=== PATIENT | female | born 1935 | race Caucasian/White ===

== ENCOUNTER 2017-04-15 11:47 | Inpatient (IN) | payer MEDICARE, SELFPAY ==
[2017-04-15] VITALS (10 sets, daily range): BP systolic 109–161; BP diastolic 61–103; PULSE 68–146; RESP 15–18; TEMP 36.2–36.9; O2SAT 95–99; BMI 17.5; BMI 20.3
--- NOTE | 2017-04-15 12:19 | RAD_ITS ---
STUDY: X-RAY CHEST REASON FOR EXAM: Female, 81 years old. Palpitations. Bilateral lower extremity edema. TECHNIQUE: Single AP portable view of the chest. COMPARISON: Comparison is made with prior study dated February 29, 2016. FINDINGS: EKG electrodes are seen. There is evidence of atherosclerotic calcification of the carotid bifurcations bilaterally. There are small bilateral pleural effusions with underlying infiltration and/or atelectasis. Normal size heart. Normal mediastinum and jarrell. Normal visualized pulmonary arteries. There is atherosclerotic calcification of the aortic arch with tortuosity. Normal visualized thoracic spine. Normal visualized ribs, clavicles, and shoulders. There is no demonstrated abnormality of the visualized soft tissue structures of the upper abdomen. RAD/Chest 1 View (Portable) IMPRESSION: Small bilateral pleural effusions with underlying infiltration and/or atelectasis. Electronically Signed: Isra Claros MD at 12:49 EST Tel [phone], Service support ,
--- NOTE | 2017-04-15 12:19 | EKG12_ITS ---
Test Reason : Blood Pressure : / mmHG Vent. Rate : 148 BPM Atrial Rate : 296 BPM P-R Int : 000 ms QRS Dur : 082 ms QT Int : 306 ms P-R-T Axes : 248 055 247 degrees QTc Int : 480 ms Atrial flutter Nonspecific ST and T wave abnormality Abnormal ECG Confirmed by UMA DAILY ([id number]), publication editor PAMELA HAYES ([id number] on 04/20/2017 10:13:32 AM Referred By: Muriel Burch Confirmed By:UMA DAILY
[2017-04-15] MEDS: 0.9% Normal Saline 1,000 ML 150 ML IV (12:30)
[2017-04-15] MEDS: dilTIAZem 25 MG/5 ML Vial 20 MG IV BOLUS ×2 (12:31→14:35)
[2017-04-15] MEDS: Aspirin 81 MG TAB.CHEW 324 MG PO (12:31)
[2017-04-15 12:34] LABS: Absolute Lymphocyte Count 1.72 X10^3/ul (0.83-4.51); Absolute Neutrophil Count 2.9 X10^3/uL (2.0-7.7); Basophil# 0.02 X10^3/uL; Basophil% 0.4 % (0-1); Eosinophil# 0.13 X10^3/uL; Eosinophils% 2.4 % (0-5); Hematocrit 35.6 % (37-47); Hemoglobin 11.8 g/dl (12.0-15.0); Lymphocyte # 1.72 X10^3/ul (4.0); Lymphocyte % 31.6 % (19-41); Mean Corp Hgb Conc 33.1 g/gl (32-36); Mean Corpuscular Hgb 31.8 pg (27.0-32.0); Mean Platelet Vol. 10.6 fl (6.2-12.0); Monocyte# 0.67 X10^3/uL; Monocyte% 12.3 % (0-10); Neutrophil % 53.1 % (47-70); Platelet Count 265 K/mm3 (150-450); RBC Distribution Width CV 14.9 % (11.6-14.6); RBC Distribution Width SD 49.5 fl (35.1-43.9); Red Blood Count 3.71 M/mm3 (4.2-5.4); White Blood Count 5.5 K/mm3 (4.4-11.0)
[2017-04-15 12:36] LABS: POSITIVE COUNT NO; POSITIVE DIFFERENTIAL NO; POSITIVE MORPHOLOGY NO
[2017-04-15 12:58] LABS: Anion Gap 8 (5-15); BUN 20 mg/dL (7-18); BUN/Creat Ratio 22.5 RATIO (10-20); Chloride 103 mmol/L (98-107); Creatinine, Serum 0.89 mg/dL (0.55-1.02); EST Glomerular Filtration Rate 65 mL/min (>60); Est Glom Filt Rate - Afr Amer 79 mL/min (>60); Estimated Creatinine Clearance 36.82 ml/min; Glucose 195 mg/dL (70-110); Potassium 4.8 mmol/L (3.5-5.1); Sodium Level 139 mmol/L (136-145); Thyroid Stim Hormone (TSH) 2.94 uIU/mL (0.358-3.74)
--- NOTE | 2017-04-15 13:18 | ED.VISSUMM ---
- ER Visit Summary Date of Service: 04/15/17 Chief Complaint: Ankle swelling History of Present Illness: The patient is a 81 F with no primary care physician. She reports that she has bilateral ankle swelling that began approximately 4 days ago. She denies any chest shayan, palpitations, or shortness of breath. She has never had anything like this before. Review of systems: General: No fever, chills, cold sweats. Cardiovascular: No chest pain, palpitations. Respiratory: No cough, shortness of breath, dyspnea on exertion. Gastrointestinal: No abdominal pain, nausea, vomiting, diarrhea, melena, or hematochezia. Genitourinary: No dysuria, frequency, hematuria. Skin: No rash. Neuro: No headache, numbness, weakness. Physical Examination: Vitals: Stable. Afebrile. General: Well-nourished and well-developed. Head: Normocephalic atraumatic. Neck: Supple, no lymphadenopathy. No JVD. Nontender. Cardiovascular: Tachycardic irregularly irregular rhythm with no murmur. Respiratory: No respiratory distress. Clear to auscultation bilaterally. Abdominal: Soft, nontender, nondistended, normal bowel sounds. No guarding, rebound, or peritoneal signs. Back: Nontender. Extremities: Nontender, 2+ pitting edema of lower extremity is bilaterally. Skin: Normal color, no rash. Neurologic: Alert and oriented ?3. Cranial nerves II through XII are intact. Normal strength and sensation. Psych: Normal affect. Test Results: EKG is atrial flutter at [address] depression. Troponin is negative. Chem-7 is more for BUN of 20 and glucose 195. CBC is more for an H&H 11.8 and 35.6, monocytes of 12. TSH is normal. Chest x-ray shows small bilateral pleural effusions with atelectasis. Emergency Department Course and Treatment: Patient was treated with aspirin and Cardizem IV. Her heart rate has decreased into the 90s to low 100s. However, she is still in atrial fibrillation. She will be given a second dose of Cardizem IV. Treatment Plan: Patient will be discussed with the hospitalist and admitted to the hospital for further evaluation and treatment. Disposition: Admitted in improved condition. Impression: 1. Atrial fibrillation with RVR. 2. Bilateral pleural effusion. 3. Insulin-dependent diabetes mellitus. 4. Critical care time 30 minutes. This note was generated with SciGit dictation software. It may contain incorrect words, spelling, and punctuation that were not noted in review of the chart prior to signing ED Disposition - Plan for ED Patient: Chief Complaint: Edema Referrals: Care Physician,No Primary [Primary Care Provider] -
--- NOTE | 2017-04-15 15:05 | PCM.HP.STD ---
Problem List (1) Valvular heart disease Status: Acute (2) A. fib with RVR, new onset Status: Acute History of Present Illness Date of Admission: 04/15/17 Chief Complaint: Bilateral lower extremity edema, sent from urgent care The patient is a 81 year old F with history of diabetes mellitus type 2 on insulin pump was sent to ER from urgent care where she went for bilateral lower extremity edema for last 4 days. Patient denies any chest pain, shortness of breath, palpitation or diaphoresis, near syncope or syncope. Patient was found to have A. fib in urgent care and was sent to ER. In the ER, her heart it was found in 1 45/min. Blood pressure 161/103, pulse ox 99% on room air. She was given Cardizem 20 mg IV bolus ?2. Patient heart rate is controlled, currently running in 100s. Patient's chest x-ray shows a small bilateral pleural effusions with underlying infiltration or atelectasis. Patient had previous echo in February 2016 which showed EF 60% with no regional wall motion abnormalities. LV systolic function normal. Normal right and left atria. Moderate TR, PA SP 44 mmHg. Moderate eccentric MR. She had normal Lexiscan nuclear stress test with EF 74%. Past Medical History Allergies No Known Allergies Allergy (Verified 03/17/17 14:15) Home Medications: Ambulatory Orders Medication Instructions Recorded enalapril maleate 20 mg tablet 20 mg PO DAILY 03/17/17 insulin lispro 100 unit/mL See Label Instructions SC QDAY 03/17/17 subcutaneous solution Smoking Status: Former smoker - *Family History Maternal Family History: Family History (Last Reviewed 03/17/17 @ 14:24 by Camille Escalante) Father Kidney disease Cancer Sibling Family History: Family History (Last Reviewed 03/17/17 @ 14:24 by Camille Escalante) Father Kidney disease Cancer History Items: Heart Disease - Had some cardiac surgery. Review of Systems Constitutional: Denies: Chills, Fever, Weight Change HEENT: Denies: Head Aches, Sinus Congestion, Sinus Drainage Cardiovascular: Reports: Edema. Denies: Chest Pain, Chest Tightness, Palpitations Respiratory: Denies: Cough, Shortness of breath at rest, Sputum production Gastrointestinal: Denies: Abdominal Pain, Nausea, Vomiting Genitourinary: Denies: Dysuria Musculoskeletal: Denies: Joint Pain, Joint Tenderness Skin: Denies: Rash, Wounds Neurological: Denies: Numbness, Tingling, Focal weakness Psychiatric: Denies: Anxiety, Depression, Homicidal Ideations, Suicidal Ideations Hematologic/ Lymphatic: Denies: Easy Bruising, Easy Bleeding VTE Information - Inpt Only VTE Present on Admission: No VTE Mechan Device Prophylaxis: SCD's VTE Pharm Prophylaxis ordered?: Yes Patient Problems: Active and Suspected Problems (Last Reviewed 03/17/17 @ 14:24 by Camille Escalante) Valvular heart disease (Acute) A. fib with RVR, new onset (Acute) - Physical Exam General: Alert, Oriented x3, Cooperative HEENT: Atraumatic, PERRLA, EOMI, Normocephalic Neck: Supple, No JVD, Negative Carotid Bruits Lungs: No rhonchi, No wheeze, No rales, Diminished - Air entry diminished in bilateral lung bases., - - Bilateral lower pleural effusion. Cardiovascular: Regular rate, No murmurs, Irregular Rate, Tachycardic Abdomen: Bowel Sounds Present, Soft, Non Tender Extremities: No edema, Capillary Refill Less than 3 Seconds Skin: No rashes, No breakdown Musculoskeletal: No Tenderness to Palpation of Joints or Extremities, Arthritic Changes Neurological: Cranial nerves II-XII grossly intact, Neuro grossly intact Psych/Mental Status: Normal Affect, Appropriate Vital Signs Temp Pulse Resp BP Pulse Ox 97.2 F L 71 17 117/75 98 04/15/17 11:49 04/15/17 14:40 04/15/17 14:40 04/15/17 14:40 04/15/17 14:40 Oxygen Flow Rate 2 Oxygen Delivery Method Nasal Cannula Assessment/Plan Active and Suspected Problems (Last Reviewed 03/17/17 @ 14:24 by Camille Escalante) Valvular heart disease (Acute) A. fib with RVR, new onset (Acute) The patient is a 81 year old F with history of diabetes mellitus type 2 on insulin pump was sent to ER from urgent care where she went for bilateral lower extremity edema for last 4 days. Patient denies any chest pain, shortness of breath, palpitation or diaphoresis, near syncope or syncope. Patient was found to have A. fib in urgent care and was sent to ER. In the ER, her heart it was found in 1 45/min. Blood pressure 161/103, pulse ox 99% on room air. She was given Cardizem 20 mg IV bolus ?2. Patient heart rate is controlled, currently running in 100s. Patient's chest x-ray shows a small bilateral pleural effusions with underlying infiltration or atelectasis. Patient had previous echo in February 2016 which showed EF 60% with no regional wall motion abnormalities. LV systolic function normal. Normal right and left atria. Moderate TR, PA SP 44 mmHg. Moderate eccentric MR. She had normal Lexiscan nuclear stress test with EF 74%. She was last admitted in February 2016 for syncope. 1. New onset A. fib with RVR: Patient is being admitted on the cardiac floor, PCU. Started on IV Cardizem drip. Started on Lovenox 1 mg/kg body weight. Will consult cardiology to evaluate for further cardioversion. 2D echo is ordered. Cycle cardiac enzymes. 2. New onset of bilateral lower extremity edema and bilateral pleural effusion, raises suspicion of heart failure: Lasix 40 mg IV twice daily and titrate as per intake/output. Monitor electrolytes, input/output, and kidney function. Repeat chest x-ray PA and lateral for pleural effusion. 3. Diabetes mellitus type 1 on insulin pump: Patient has been on insulin pump since 1990 and manage her insulin pump well. Blood sugars are between 295 -307. A1c tomorrow a.m. 4. Valvular heart disease: As per the 2D echo in 2016 she has moderate eccentric MR and moderate tricuspid regurgitation. RVSP 44 mm suggestive of mild pulmonary hypertension. She is a former smoker, quit long time ago DVT prophylaxis: On Lovenox 1 mg/kg body weight at as stated above. Advanced life directive/CODE STATUS: And has a living will at home. As they can understand that she has DNR CC arrest and she understands the meaning of DNR CC with no chest compressions and intubation. I requested her to get the living will so that we can scan it in our medical record. About 15 minutes spent on addressing the advanced life. Laboratory Results 04/15/17 12:20: WBC 5.5, RBC 3.71 L, Hgb 11.8 L, Hct 35.6 L, MCV 96.0, MCH 31.8, MCHC 33.1, RDW 14.9 H, RDW Differential 49.5 H, Plt Count 265, MPV 10.6, Immature Gran % (Auto) 0.200, Neut % (Auto) 53.1, Lymph % (Auto) 31.6, Bell % (Auto) 12.3 H, Eos % (Auto) 2.4, Baso % (Auto) 0.4, Absolute Neuts (auto) 2.9, Absolute Lymphs (auto) 1.72, Total Counted Not Reportable 04/15/17 12:20: Sodium 139, Potassium 4.8, Chloride 103, Carbon Dioxide 28.0, Anion Gap 8, BUN 20 H, Creatinine 0.89, Estim Creat Clear Calc 36.82, Est GFR (MDRD) Af Amer 79, Est GFR (MDRD) Non-Af 65, BUN/Creatinine Ratio 22.5 H, Glucose 195 H, Calcium 9.0, Troponin I < 0.02, TSH 2.94 04/15/17 12:20: B-Natriuretic Peptide Pending 04/15/17 12:20: Total Bilirubin Pending, Direct Bilirubin Pending, AST Pending, ALT Pending, Alkaline Phosphatase Pending, Total Protein Pending, Albumin Pending Clinical Impression(s) from Imaging Studies Chest X-Ray 04/15/17 12:19 IMPRESSION: Small bilateral pleural effusions with underlying infiltration and/or atelectasis. Electronically Signed: Isra Claros MD at 12:49 EST Tel [phone], Service support , This note was generated with Far[employer] dictation software. Every effort was made to ensure accuracy, however computerized cloth pattern maker mistakes may persist. Code Visit Inpatient E&M: 36173 Init Hosp L3 Procedures: 06803 Advncd Care Plan 30 Min
--- NOTE | 2017-04-15 15:06 | ECHOD_ITS ---
Reason For Study: A. fib Procedure This was a 2D Doppler, Color Flow transthoracic echocardiogram. Exam performed portable in patient room. Left Ventricle Normal size and thickness. The estimated ejection fraction is 50-55 %. There is mild global hypokinesis of the left ventricle. Right Ventricle Normal size and thickness. Normal systolic function. Atria Normal left atrium. Normal right atrium. Normal atrial septum. Mitral Valve Mild diffuse mitral valve thickening. Moderate mitral annular calcification extending into the posterior leaflet. Mild-Moderate (1-2+) posteriorly directed mitral valve insufficiency. Tricuspid Valve Normal tricuspid valve. Mild (1+) tricuspid valve insufficiency. Right ventricular systolic pressure estimated to be 37 mmHg. Mild pulmonary hypertension. Aortic Valve Trisinus/trileaflet aortic valve. Moderate focal aortic valve thickening. Mild focal aortic valve calcification. Mild restriction of the aortic valve. 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 Pulmonic Valve Normal pulmonic valve. Great Vessels Normal aortic root. Mild atherosclerosis of the aortic arch. The inferior vena cava is dilated. Inferior vena cava collapse with sniff. Pericardium/Pleural Trivial pericardial effusion. There are no echocardiographic indications of cardiac tamponade. Small left pleural effusion. MMode/2D Measurements & Calculations LVIDd: 2.8 cm IVSd: 1.2 cm Ao root diam: 2.5 cm LVIDs: 2.0 cm LVPWd: 1.2 cm LA dimension: 3.3 cm RVDd: 2.7 cm FS: 28.7 % LAV(MOD-bp): 20.7 ml LA A4 area: 13.3 cm2 RA A4 area: 14.6 cm2 LAV(MOD-bp) Indexed: 14.2 ml/m2 LAV(MOD-sp2): 14.0 ml LAV(MOD-sp4): 26.5 ml Doppler Measurements & Calculations MV E max bryson: 121.1 cm/sec Ao V2 max: 128.4 cm/sec LV V1 max: 64.4 cm/sec Ao max P.6 mmHg LV V1 max P.7 mmHg PA V2 max: 57.4 cm/sec TR max bryson: 231.8 cm/sec TR max P.5 mmHg Interpretation Summary The estimated ejection fraction is 50-55 %. There is mild global hypokinesis of the left ventricle. Mild (1+) tricuspid valve insufficiency. Right ventricular systolic pressure estimated to be 37 mmHg. Mild pulmonary hypertension. 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 Mild-Moderate (1-2+) posteriorly directed mitral valve insufficiency. Pt appears to be in atrial fibrillation. Trivial pericardial effusion. There are no echocardiographic indications of cardiac tamponade. Compared to echo report dated 03/02/2016, no appreciable changes noted, other than new afib. Ordering Physician: Liban Cruz Referring Physician: Devi PCP Performed By: Berta Hernandez RDCS
--- NOTE | 2017-04-15 15:20 | HP.PCM_ITS ---
Problem List (1) Valvular heart disease Status: Acute (2) A. fib with RVR, new onset Status: Acute History of Present Illness Date of Admission: 04/15/17 Chief Complaint: Bilateral lower extremity edema, sent from urgent care The patient is a 81 year old F with history of diabetes mellitus type 2 on insulin pump was sent to ER from urgent care where she went for bilateral lower extremity edema for last 4 days. Patient denies any chest pain, shortness of breath, palpitation or diaphoresis, near syncope or syncope. Patient was found to have A. fib in urgent care and was sent to ER. In the ER, her heart it was found in 1 45/min. Blood pressure 161/103, pulse ox 99% on room air. She was given Cardizem 20 mg IV bolus ?2. Patient heart rate is controlled, currently running in 100s. Patient's chest x-ray shows a small bilateral pleural effusions with underlying infiltration or atelectasis. Patient had previous echo in February 2016 which showed EF 60% with no regional wall motion abnormalities. LV systolic function normal. Normal right and left atria. Moderate TR, PA SP 44 mmHg. Moderate eccentric MR. She had normal Lexiscan nuclear stress test with EF 74%. Past Medical History Allergies No Known Allergies Allergy (Verified 03/17/17 14:15) Home Medications: Ambulatory Orders Medication Instructions Recorded enalapril maleate 20 mg tablet 20 mg PO DAILY 03/17/17 insulin lispro 100 unit/mL See Label Instructions SC QDAY 03/17/17 subcutaneous solution Smoking Status: Former smoker - *Family History Maternal Family History: Family History (Last Reviewed 03/17/17 @ 14:24 by Camille Escalante) Father Kidney disease Cancer Sibling Family History: Family History (Last Reviewed 03/17/17 @ 14:24 by Camille Escalante) Father Kidney disease Cancer History Items: Heart Disease - Had some cardiac surgery. Review of Systems Constitutional: Denies: Chills, Fever, Weight Change HEENT: Denies: Head Aches, Sinus Congestion, Sinus Drainage Cardiovascular: Reports: Edema. Denies: Chest Pain, Chest Tightness, Palpitations Respiratory: Denies: Cough, Shortness of breath at rest, Sputum production Gastrointestinal: Denies: Abdominal Pain, Nausea, Vomiting Genitourinary: Denies: Dysuria Musculoskeletal: Denies: Joint Pain, Joint Tenderness Skin: Denies: Rash, Wounds Neurological: Denies: Numbness, Tingling, Focal weakness Psychiatric: Denies: Anxiety, Depression, Homicidal Ideations, Suicidal Ideations Hematologic/ Lymphatic: Denies: Easy Bruising, Easy Bleeding VTE Information - Inpt Only VTE Present on Admission: No VTE Mechan Device Prophylaxis: SCD's VTE Pharm Prophylaxis ordered?: Yes Patient Problems: Active and Suspected Problems (Last Reviewed 03/17/17 @ 14:24 by Camille Escalante ) Valvular heart disease (Acute) A. fib with RVR, new onset (Acute) - Physical Exam General: Alert, Oriented x3, Cooperative HEENT: Atraumatic, PERRLA, EOMI, Normocephalic Neck: Supple, No JVD, Negative Carotid Bruits Lungs: No rhonchi, No wheeze, No rales, Diminished - Air entry diminished in bilateral lung bases., - - Bilateral lower pleural effusion. Cardiovascular: Regular rate, No murmurs, Irregular Rate, Tachycardic Abdomen: Bowel Sounds Present, Soft, Non Tender Extremities: No edema, Capillary Refill Less than 3 Seconds Skin: No rashes, No breakdown Musculoskeletal: No Tenderness to Palpation of Joints or Extremities, Arthritic Changes Neurological: Cranial nerves II-XII grossly intact, Neuro grossly intact Psych/Mental Status: Normal Affect, Appropriate Vital Signs Temp Pulse Resp BP Pulse Ox 97.2 F L 71 17 117/75 98 04/15/17 11:49 04/15/17 14:40 04/15/17 14:40 04/15/17 14:40 04/15/17 14:40 Oxygen Flow Rate 2 Oxygen Delivery Method Nasal Cannula Assessment/Plan Active and Suspected Problems (Last Reviewed 03/17/17 @ 14:24 by Camille Escalante ) Valvular heart disease (Acute) A. fib with RVR, new onset (Acute) The patient is a 81 year old F with history of diabetes mellitus type 2 on insulin pump was sent to ER from urgent care where she went for bilateral lower extremity edema for last 4 days. Patient denies any chest pain, shortness of breath, palpitation or diaphoresis, near syncope or syncope. Patient was found to have A. fib in urgent care and was sent to ER. In the ER, her heart it was found in 1 45/min. Blood pressure 161/103, pulse ox 99% on room air. She was given Cardizem 20 mg IV bolus ?2. Patient heart rate is controlled, currently running in 100s. Patient's chest x-ray shows a small bilateral pleural effusions with underlying infiltration or atelectasis. Patient had previous echo in February 2016 which showed EF 60% with no regional wall motion abnormalities. LV systolic function normal. Normal right and left atria. Moderate TR, PA SP 44 mmHg. Moderate eccentric MR. She had normal Lexiscan nuclear stress test with EF 74%. She was last admitted in February 2016 for syncope. 1. New onset A. fib with RVR: Patient is being admitted on the cardiac floor, PCU. Started on IV Cardizem drip. Started on Lovenox 1 mg/kg body weight. Will consult cardiology to evaluate for further cardioversion. 2D echo is ordered. Cycle cardiac enzymes. 2. New onset of bilateral lower extremity edema and bilateral pleural effusion , raises suspicion of heart failure: Lasix 40 mg IV twice daily and titrate as per intake/output. Monitor electrolytes, input/output, and kidney function. Repeat chest x-ray PA and lateral for pleural effusion. 3. Diabetes mellitus type 1 on insulin pump: Patient has been on insulin pump since 1990 and manage her insulin pump well. Blood sugars are between 295 - 307. A1c tomorrow a.m. 4. Valvular heart disease: As per the 2D echo in 2016 she has moderate eccentric MR and moderate tricuspid regurgitation. RVSP 44 mm suggestive of mild pulmonary hypertension. She is a former smoker, quit long time ago DVT prophylaxis: On Lovenox 1 mg/kg body weight at as stated above. Advanced life directive/CODE STATUS: And has a living will at home. As they can understand that she has DNR CC arrest and she understands the meaning of DNR CC with no chest compressions and intubation. I requested her to get the living will so that we can scan it in our medical record. About 15 minutes spent on addressing the advanced life. Laboratory Results 04/15/17 12:20: WBC 5.5, RBC 3.71 L, Hgb 11.8 L, Hct 35.6 L, MCV 96.0, MCH 31.8 , MCHC 33.1, RDW 14.9 H, RDW Differential 49.5 H, Plt Count 265, MPV 10.6, Immature Gran % (Auto) 0.200, Neut % (Auto) 53.1, Lymph % (Auto) 31.6, [place] % ( Auto) 12.3 H, Eos % (Auto) 2.4, Baso % (Auto) 0.4, Absolute Neuts (auto) 2.9, Absolute Lymphs (auto) 1.72, Total Counted Not Reportable 04/15/17 12:20: Sodium 139, Potassium 4.8, Chloride 103, Carbon Dioxide 28.0, Anion Gap 8, BUN 20 H, Creatinine 0.89, Estim Creat Clear Calc 36.82, Est GFR ( MDRD) Af Amer 79, Est GFR (MDRD) Non-Af 65, BUN/Creatinine Ratio 22.5 H, Glucose 195 H, Calcium 9.0, Troponin I < 0.02, TSH 2.94 04/15/17 12:20: B-Natriuretic Peptide Pending 04/15/17 12:20: Total Bilirubin Pending, Direct Bilirubin Pending, AST Pending, ALT Pending, Alkaline Phosphatase Pending, Total Protein Pending, Albumin Pending Clinical Impression(s) from Imaging Studies Chest X-Ray 04/15/17 12:19 IMPRESSION: Small bilateral pleural effusions with underlying infiltration and/or atelectasis. Electronically Signed: Isra Claros MD at 12:49 EST Tel [phone], Service support , This note was generated with [employer] dictation software. Every effort was made to ensure accuracy, however computerized aoc operations intelligence officer mistakes may persist. Code Visit Inpatient E&M: 28260 Init Hosp L3 Procedures: 08896 Advncd Care Plan 30 Min
--- NOTE | 2017-04-15 15:40 | EKG12_ITS ---
Test Reason : Blood Pressure : / mmHG Vent. Rate : 075 BPM Atrial Rate : 075 BPM P-R Int : 336 ms QRS Dur : 076 ms QT Int : 402 ms P-R-T Axes : 000 037 041 degrees QTc Int : 448 ms Atrial flutter with 2:[address] abnormality Abnormal ECG When compared with ECG of 15-APR-2017 11:58, MANUAL COMPARISON REQUIRED, DATA IS UNCONFIRMED Confirmed by UMA DAILY ([id number]), industrial editor PAMELA HAYES ([id number]) on 04/22/2017 11:47:09 AM Referred By: Muriel Burch Confirmed By:UMA DAILY
[2017-04-15 15:49] LABS: AST(SGOT) 60 U/L (15-37); Alanine Aminotransfer ALT/SGPT 83 U/L (12-78); Albumin, Serum 3.4 g/dL (3.4-5.0); Alkaline Phosphatase 255 U/L (45-117); Bilirubin, Direct 0.12 mg/dL (0.00-0.30); Globulin 3.9 g/dL (2.2-4.2); Protein, Total 7.3 g/dL (6.4-8.2)
[2017-04-15 16:33] LABS: BNP,B-Type NATRIURETIC PEPTIDE 135.6 pg/mL (0-100)
[2017-04-15] MEDS: Enoxaparin 40 MG/0.4 ML Syringe SC (17:17)
--- NOTE | 2017-04-15 19:59 | EKG12_ITS ---
Test Reason : ARRYTHMIA Blood Pressure : / mmHG Vent. Rate : 110 BPM Atrial Rate : 300 BPM P-R Int : 000 ms QRS Dur : 094 ms QT Int : 306 ms P-R-T Axes : 000 048 046 degrees QTc Int : 414 ms Atrial flutter with variable A-V block Abnormal ECG When compared with ECG of 15-APR-2017 15:47, MANUAL COMPARISON REQUIRED, DATA IS UNCONFIRMED Confirmed by UMA DAILY ([id number]), editor in chief PAMELA HAYES ([id number]) on 04/22/2017 11:48:18 AM Referred By: Muriel Burch Confirmed By:UMA DAILY
[2017-04-15] MEDS: Metoprolol Tartrate 25 MG Tablet PO (21:12)
[2017-04-15 22:01] LABS: Bedside Glucose 187 mg/dL (70-110)
[2017-04-16] VITALS (13 sets, daily range): BP systolic 99–131; BP diastolic 62–85; PULSE 74–145; RESP 16; TEMP 36.7–37.1; O2SAT 95–97
[2017-04-16] MEDS: Enoxaparin 40 MG/0.4 ML Syringe SC ×2 (05:28→18:01)
[2017-04-16 06:55] LABS: Bedside Glucose 166 mg/dL (70-110)
--- NOTE | 2017-04-16 06:59 | EKG12_ITS ---
Test Reason : Blood Pressure : / mmHG Vent. Rate : 142 BPM Atrial Rate : 142 BPM P-R Int : 136 ms QRS Dur : 082 ms QT Int : 302 ms P-R-T Axes : 000 150 153 degrees QTc Int : 464 ms Suspect arm lead reversal, interpretation assumes no reversal Sinus tachycardia Lateral infarct , age undetermined Abnormal ECG When compared with ECG of 15-APR-2017 20:14, MANUAL COMPARISON REQUIRED, DATA IS UNCONFIRMED Confirmed by UMA DAILY ([id number]), film editor supervisor PAMELA HAYES ([id number]) on 04/22/2017 11:55:37 AM Referred By: Muriel Burch Confirmed By:UMA DAILY
[2017-04-16] MEDS: Metoprolol Tartrate 25 MG Tablet PO (07:38)
[2017-04-16 08:04] LABS: Cholesterol 140 mg/dL (200); High Density Lipoprotein 95 mg/dL; Thyroid Stim Hormone (TSH) 2.81 uIU/mL (0.358-3.74); Triglycerides 47 mg/dL; Very Low Density Lipoprotein 9 mg/dL (5-40)
[2017-04-16 08:06] LABS: Hemoglobin A1c 9.9 % (4.2-6.3)
--- NOTE | 2017-04-16 09:10 | PCM.CONS.C ---
Problem List (1) Right-sided heart failure Status: Acute (2) Valvular heart disease Status: Acute (3) A. fib with RVR, new onset Status: Acute (4) Hyperlipidemia due to type 1 diabetes mellitus Status: Acute Comment: Pt had some issues with statin use in past and has since refused any further trial of statin drug. Eats healthy. HDL 130. (5) Uncontrolled type 1 diabetes mellitus with complication, without long-term current use of insulin Status: Acute Comment: Pt continues to keep bedtime BG high to prevent nocturnal hypoglycemia although this does not seem to be the best approach. I have ask her to change night time basal rates but she is not interested in doing. A1c high at 10.5 due to patient fear of low BG. No checking enough for optimal control. Enc 4 BG daily. Reason for Consult Date of Consultation: 04/16/17 Reason for Consultation: Shortness of breath, new onset atrial fibrillation, lower extremity edema, possible bilateral small pleural effusions per History of Present Illness: The patient is a 81 year old F, previous smoker who quit around 40 years ago after a one half pack per day for 20 year habit, no known COPD, who also has diabetes, no hypertension, no known history of atrial fibrillation or coronary artery disease. 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 Patient noted new onset lower extremity edema over the past 3 days, and when it did not improve she sought medical attention in [facility] type venue. She was found to have lower extremity edema and apparently new onset atrial fibrillation and was sent to [facility] ER for evaluation. In the emergency room an EKG was obtained which demonstrated atrial fibrillation with rapid ventricular response, no acute changes. Chest x-ray also showed hyperinflated lungs with possible bilateral small pleural effusions. Patient was admitted for A. fib and CHF of new onset. While she was convalescing she reverted back to normal sinus rhythm, but then reverted back to atrial fibrillation this morning. At no time did she have any chest pain, angina, shortness of breath or dyspnea on exertion. She denies any recent flulike illnesses, stroke, previous coronary disease, stress test or catheterization in the past. [] Past Medical History Allergies/Adverse Reactions: Allergies No Known Allergies Allergy (Verified 03/17/17 14:15) Home Medications: Ambulatory Orders Medication Instructions Recorded enalapril maleate 20 mg tablet 20 mg PO DAILY 03/17/17 insulin lispro 100 unit/mL See Label Instructions SC QDAY 03/17/17 subcutaneous solution - *Family History Maternal Family History: Family History (Last Reviewed 03/17/17 @ 14:24 by Camille Escalante) Father Kidney disease Cancer Sibling Family History: Family History (Last Reviewed 03/17/17 @ 14:24 by Camille Escalante) Father Kidney disease Cancer History Items: Heart Disease - Had some cardiac surgery. Smoking Status: Former smoker Review of Systems - Review of Systems General: Denies: Fever, Night Sweats, Fatigue Cardiovascular: Reports: Peripheral Edema, Palpitations. Denies: Chest Discomfort, Shortness of Breath, Orthopnea, PND, Lightheadedness, Dizziness, Near Syncope, Syncope Respiratory: Denies: Cough, Sputum Production, Hemoptysis Gastrointestinal: Denies: Hematemesis, Hematochezia, Melena Genitourinary: Denies: Dysuria, Hematuria Skin: Denies: Rash Subjectve: Patient laying in bed, no acute distress per Objective: Vital Signs Temp Pulse Resp BP Pulse Ox 98.0 F 143 H 16 102/62 97 04/16/17 02:44 04/16/17 07:38 04/16/17 02:44 04/16/17 02:44 04/16/17 02:44 Oxygen Flow Rate 2 Oxygen Delivery Method Room Air Weight: 114 lb 15.996 oz Body Mass Index (BMI) 20.3 Intake and Output for Last 24 Hours 04/14/17 04/15/17 04/16/17 23:59 23:59 23:59 Intake Total 360 / 360 Output Total 0 / 0 Balance 360 / 360 0 / 0 General: Awake, Alert, Oriented x 3 HEENT: PERRL, EOMI, Sclera Non Icteric Neck: Supple, Good ROM, No Lymph Node Enlargement Lungs: Clear to auscultation Cardiovascular: Irregular Rhythm, Normal S1, Normal S2, No Murmurs, No Rubs, No Gallops Vascular: No Carotid Bruits, Normal Femoral Pulses, Normal Radial Pulses, Normal Dorsalis Pedal Pulse, Normal Posterior Tibial Pulses Abdomen: Bowel Sounds Present, Soft, Non Tender, No HSM, No Organomegaly Extremities: No Cyanosis, No Clubbing, No edema Neurological: No Focal Motor or Sensory Deficit 04/15/17 16:04: Troponin I < 0.02 04/15/17 21:13: Troponin I < 0.02 04/16/17 02:15: Troponin I < 0.02 04/16/17 06:40: Hemoglobin A1c 9.9 H 04/16/17 06:40: Triglycerides 47, Cholesterol 140, LDL Cholesterol 36, VLDL Cholesterol 9, HDL Cholesterol 95 Rhythm: A. fib with RVR. EKG: As above ECHO: Pending Stress Test: Pending Cardiac Cath: PCI: CT Surgery: Holter monitor: EPS: PPM: CXR: Chest CT Scan: Assessment/Plan 1. Atrial fibrillation: The patient has new onset atrial fibrillation with a history of hypertension, diabetes, and no known coronary disease. Her heart rate is still yet to be controlled although she is new to beta-blockers. We will continue beta-yuni therapy and titrated up to keep her heart rate less than 100. In addition she is ruled out for myocardial infarction and we are awaiting an echocardiogram to determine her LV function, valvular status and pulmonary pressures. Also recommend the patient undergo a non-walking nuclear stress test once she has achieved her dry weight. If this is grossly abnormal for ischemia, she may require diagnostic coronary angiogram. In the meantime she will continue subcu Lovenox therapy and if her stress test is negative, we will transition her to Eliquis or Xarelto. Her TSH is normal. 2. Hyperlipidemia: Her LDL is 36 and her HDL is 95. Needed at this time. 3. Thank you very much for the opportunity to participate in the cardiac care of your patient. Consultation time took place between 830 and 9 AM. Code Visit Inpatient E&M: 20879 Init Hosp L2
[2017-04-16] MEDS: Aspirin 81 MG TAB.CHEW PO (09:36)
--- NOTE | 2017-04-16 12:11 | EKG12_ITS ---
Test Reason : REPEAT Blood Pressure : / mmHG Vent. Rate : 120 BPM Atrial Rate : 312 BPM P-R Int : 000 ms QRS Dur : 088 ms QT Int : 314 ms P-R-T Axes : 000 019 022 degrees QTc Int : 443 ms Atrial flutter with variable A-V block Abnormal ECG When compared with ECG of 16-APR-2017 07:12, MANUAL COMPARISON REQUIRED, DATA IS UNCONFIRMED Confirmed by UMA DAILY ([id number]), medical editor PAMELA HAYES ([id number] on 04/22/2017 11:55:51 AM Referred By: Muriel Burch Confirmed By:UMA DAILY
--- NOTE | 2017-04-16 12:19 | PCM.PN.HOSP ---
Patient Problems: Active and Suspected Problems (Last Reviewed 03/17/17 @ 14:24 by Camille Escalante) Valvular heart disease (Acute) A. fib with RVR, new onset (Acute) Right-sided heart failure (Acute) Subjective: Patient feeling better today. Asking when she can go home. Vitals/I&O's: Vital Signs Temp Pulse Resp BP Pulse Ox 36.8 C 74 16 99/63 96 04/16/17 09:30 04/16/17 09:30 04/16/17 09:30 04/16/17 09:30 04/16/17 09:30 Oxygen Flow Rate 2 Oxygen Delivery Method Room Air Weight: 52.163 kg Body Mass Index (BMI) 20.3 Intake and Output for Last 24 Hours 04/14/17 04/15/17 04/16/17 23:59 23:59 23:59 Intake Total 360 / 360 Output Total 0 / 0 Balance 360 / 360 0 / 0 General: Alert, Cooperative, No apparent distress, - - Years younger than stated age HEENT: Atraumatic, Normocephalic Neck: No Nodes, Thyroid Normal Size and Texture Lungs: Clear to auscultation, Normal air movement, No rhonchi, No wheeze Cardiovascular: Normal S1, Normal S2, Irregular Rate, Tachycardic Abdomen: Bowel Sounds Present, Soft, Non Tender, Non-Distended, No Hepato-splenomegaly Extremities: No edema, No Calf Tenderness Skin: No rashes, No breakdown Psych/Mental Status: Normal Affect, Appropriate Laboratory Results 04/15/17 16:04: Troponin I < 0.02 04/15/17 21:13: Troponin I < 0.02 04/15/17 21:19: POC Glucose 187 H 04/16/17 02:15: Troponin I < 0.02 04/16/17 06:40: Hemoglobin A1c 9.9 H 04/16/17 06:40: Triglycerides 47, Cholesterol 140, LDL Cholesterol 36, VLDL Cholesterol 9, HDL Cholesterol 95, TSH 2.81 04/16/17 06:40: POC Glucose 166 H Current Medications Aspirin (Aspirin, Baby) 81 mg PO DAILY@0800 [facility] Last Admin: 04/16/17 09:36 Dose: 81 mg Bisacodyl (Dulcolax) 10 mg RECTAL DAILY PRN PRN PRN Reason: Constipation Dextrose (D50w Syringe) 0 gm IV X1 PRN; Protocol PRN Reason: Hypoglycemia Docusate Sodium (Colace) 200 mg PO BID PRN PRN PRN Reason: Constipation Enoxaparin Sodium (Lovenox) 40 mg SC BID@0600,1800 [facility] Last Admin: 04/16/17 05:28 Dose: 40 mg Glucagon () 1 mg IM .X1 PRN PRN Reason: Hypoglycemia Lisinopril (Zestril) 20 mg PO DAILY [facility] Last Admin: 04/16/17 09:56 Dose: Not Given Metoprolol Tartrate (Lopressor (Beta Zoraida)) 25 mg PO BID [facility] Last Admin: 04/16/17 07:38 Dose: 25 mg Non-Formulary Medication (Insulin Lispro [Humalog]) 0 units SC UD [facility] Last Admin: 04/15/17 16:45 Dose: Not Given Ondansetron HCl (Zofran) 4 mg IV Q8H PRN PRN PRN Reason: Nausea Oxycodone HCl (Oxyir) 5 mg PO Q4H PRN PRN PRN Reason: Moderate Pain (pain scale 4-5) Sodium Chloride () 5 - 30 ml IV UD PRN PRN Reason: SALINE FLUSH Assessment/Plan Active and Suspected Problems (Last Reviewed 03/17/17 @ 14:24 by Camille Escalante) Valvular heart disease (Acute) A. fib with RVR, new onset (Acute) Right-sided heart failure (Acute) 1. Atrial fibrillation with RVR Patient's heart rate is going from the 90s to the 120s. Patient has been started on metoprolol tartrate 25 mg twice daily. Taken off the diltiazem. We will follow-up a heart rate to see if any additional changes would be necessary if continues to be elevated. Follow-up on echocardiogram as well as stress test. [id number] score is 4. Currently on therapeutic dosing of Lovenox. Long-term recommendations will be based on the echocardiogram results. 2. DVT prophylaxis: Patient is currently anticoagulated. Code Visit Inpatient E&M: [id number] [facility] Hosp L2
[2017-04-16 12:20] LABS: Bedside Glucose 261 mg/dL (70-110)
--- NOTE | 2017-04-16 12:24 | PN_ITS ---
Patient Problems: Active and Suspected Problems (Last Reviewed 03/17/17 @ 14:24 by Camille Escalante ) Valvular heart disease (Acute) A. fib with RVR, new onset (Acute) Right-sided heart failure (Acute) Subjective: Patient feeling better today. Asking when she can go home. Vitals/I&O's: Vital Signs Temp Pulse Resp BP Pulse Ox 36.8 C 74 16 99/63 96 04/16/17 09:30 04/16/17 09:30 04/16/17 09:30 04/16/17 09:30 04/16/17 09:30 Oxygen Flow Rate 2 Oxygen Delivery Method Room Air Weight: 52.163 kg Body Mass Index (BMI) 20.3 Intake and Output for Last 24 Hours 04/14/17 04/15/17 04/16/17 23:59 23:59 23:59 Intake Total 360 / 360 Output Total 0 / 0 Balance 360 / 360 0 / 0 General: Alert, Cooperative, No apparent distress, - - Years younger than stated age HEENT: Atraumatic, Normocephalic Neck: No Nodes, Thyroid Normal Size and Texture Lungs: Clear to auscultation, Normal air movement, No rhonchi, No wheeze Cardiovascular: Normal S1, Normal S2, Irregular Rate, Tachycardic Abdomen: Bowel Sounds Present, Soft, Non Tender, Non-Distended, No Hepato- splenomegaly Extremities: No edema, No Calf Tenderness Skin: No rashes, No breakdown Psych/Mental Status: Normal Affect, Appropriate Laboratory Results 04/15/17 16:04: Troponin I < 0.02 04/15/17 21:13: Troponin I < 0.02 04/15/17 21:19: POC Glucose 187 H 04/16/17 02:15: Troponin I < 0.02 04/16/17 06:40: Hemoglobin A1c 9.9 H 04/16/17 06:40: Triglycerides 47, Cholesterol 140, LDL Cholesterol 36, VLDL Cholesterol 9, HDL Cholesterol 95, TSH 2.81 04/16/17 06:40: POC Glucose 166 H Current Medications Aspirin (Aspirin, Baby) 81 mg PO DAILY@0800 [facility] Last Admin: 04/16/17 09:36 Dose: 81 mg Bisacodyl (Dulcolax) 10 mg RECTAL DAILY PRN PRN PRN Reason: Constipation Dextrose (D50w Syringe) 0 gm IV X1 PRN; Protocol PRN Reason: Hypoglycemia Docusate Sodium (Colace) 200 mg PO BID PRN PRN PRN Reason: Constipation Enoxaparin Sodium (Lovenox) 40 mg SC BID@0600,1800 [facility] Last Admin: 04/16/17 05:28 Dose: 40 mg Glucagon () 1 mg IM .X1 PRN PRN Reason: Hypoglycemia Lisinopril (Zestril) 20 mg PO DAILY [facility] Last Admin: 04/16/17 09:56 Dose: Not Given Metoprolol Tartrate (Lopressor (Beta Zoraida)) 25 mg PO BID [facility] Last Admin: 04/16/17 07:38 Dose: 25 mg Non-Formulary Medication (Insulin Lispro [Humalog]) 0 units SC UD [facility] Last Admin: 04/15/17 16:45 Dose: Not Given Ondansetron HCl (Zofran) 4 mg IV Q8H PRN PRN PRN Reason: Nausea Oxycodone HCl (Oxyir) 5 mg PO Q4H PRN PRN PRN Reason: Moderate Pain (pain scale 4-5) Sodium Chloride () 5 - 30 ml IV UD PRN PRN Reason: SALINE FLUSH Assessment/Plan Active and Suspected Problems (Last Reviewed 03/17/17 @ 14:24 by Camille Escalante ) Valvular heart disease (Acute) A. fib with RVR, new onset (Acute) Right-sided heart failure (Acute) 1. Atrial fibrillation with RVR Patient's heart rate is going from the 90s to the 120s. Patient has been started on metoprolol tartrate 25 mg twice daily. Taken off the diltiazem. We will follow-up a heart rate to see if any additional changes would be necessary if continues to be elevated. Follow-up on echocardiogram as well as stress test. [id number] score is 4. Currently on therapeutic dosing of Lovenox. Long- term recommendations will be based on the echocardiogram results. 2. DVT prophylaxis: Patient is currently anticoagulated. Code Visit Inpatient E&M: [id number] [facility] Hosp L2
--- NOTE | 2017-04-16 14:05 | CASEMGMT ---
Face to Face with patient for initial transition planning/care coordination assessment. JULIO CESAR WALKER introduced self and role at [facility], pt voices understanding and consents to assessment at this time. Pt sitting up in bed in no distress at this time. Pt A/O x4 at this time and answers all questions appropriately at this time. Care providers, pharmacy, and demographics verified. See attached link. Pt voices no further concerns/needs at this time. Advised pt to ask for CM if any further questions/concerns/needs arise, voices understanding. PLAN: [place] JULIO CESAR WALKER
[2017-04-16] MEDS: Metoprolol Tartrate 50 MG Tablet PO ×2 (16:17→20:53)
[2017-04-16 16:36] LABS: Bedside Glucose 301 mg/dL (70-110)
--- NOTE | 2017-04-16 20:57 | NURSING ---
Pts blood [id number], pt administered 4 units of insulin via her own insulin pump
[2017-04-16 21:06] LABS: Bedside Glucose 341 mg/dL (70-110)
[2017-04-17] VITALS (12 sets, daily range): BP systolic 97–134; BP diastolic 51–94; PULSE 60–113; RESP 16–18; TEMP 36.3–36.9; O2SAT 94–98
--- NOTE | 2017-04-17 04:00 | EKG12_ITS ---
Test Reason : AM EKG Blood Pressure : / mmHG Vent. Rate : 093 BPM Atrial Rate : 312 BPM P-R Int : 000 ms QRS Dur : 086 ms QT Int : 364 ms P-R-T Axes : 000 042 031 degrees QTc Int : 452 ms Atrial flutter with variable conduction Abnormal ECG When compared with ECG of 16-APR-2017 12:42, MANUAL COMPARISON REQUIRED, DATA IS UNCONFIRMED Confirmed by UMA DAILY ([id number]), greeting card editor PAMELA HAYES ([id number]) on 04/22/2017 11:57:16 AM Referred By: Muriel Burch Confirmed By:UMA DAILY
[2017-04-17 05:04] LABS: Hematocrit 34.7 % (37-47); Hemoglobin 11.1 g/dl (12.0-15.0); Mean Corpuscular Hgb 31.3 pg (27.0-32.0); Mean Corpuscular Volume 97.7 fL (81-99); Mean Platelet Vol. 10.4 fl (6.2-12.0); Platelet Count 246 K/mm3 (150-450); RBC Distribution Width CV 14.9 % (11.6-14.6); Red Blood Count 3.55 M/mm3 (4.2-5.4); White Blood Count 4.9 K/mm3 (4.4-11.0)
[2017-04-17 05:10] LABS: Anion Gap 8 (5-15); BUN 26 mg/dL (7-18); BUN/Creat Ratio 28.1 RATIO (10-20); Calcium,Total 8.5 mg/dL (8.5-10.1); Chloride 104 mmol/L (98-107); Creatinine, Serum 0.92 mg/dL (0.55-1.02); EST Glomerular Filtration Rate 62 mL/min (>60); Est Glom Filt Rate - Afr Amer 75 mL/min (>60); Estimated Creatinine Clearance 40.16 ml/min; Glucose 140 mg/dL (70-110); Potassium 4.4 mmol/L (3.5-5.1); Sodium Level 139 mmol/L (136-145)
[2017-04-17 05:16] LABS: Scan Indicated on CBC? Y/N NO
[2017-04-17 06:52] LABS: Bedside Glucose 154 mg/dL (70-110)
[2017-04-17] MEDS: Aspirin 81 MG TAB.CHEW PO (10:09)
[2017-04-17] MEDS: Lisinopril 20 MG Tablet PO (10:10)
[2017-04-17] MEDS: Metoprolol Tartrate 50 MG Tablet PO (10:10)
--- NOTE | 2017-04-17 10:52 | STRESSREP ---
Stress Test Report Pharmacologic myocardial perfusion stress test. 81-year-old lady with a history of chest pain. Stress protocol: Resting EKG demonstrates atrial fibrillation with a rate of 103 bpm. Resting blood pressure is 128/80 mmHg. 0.4 mg of regadenoson was infused per usual protocol followed by rapid intravenous saline flush injection. Continuous EKG monitoring was performed. The maximum heart rate attained was 127 bpm which was 90% of the maximum predicted heart rate. The maximum workload attained was 1 metabolic equivalent. At rest there were no ST or T-wave changes noted to suggest abnormal flow reserve at peak infusion no ST or T-wave changes were noted suggest abnormal flow reserve. The resting blood pressure was 128/80 with a final blood pressure of 118/64 mmHg. Myocardial perfusion protocol. 11.8 mCi of technetium 99m sestamibi was injected at rest. 0.4 mg of regadenoson was infused per usual protocol. At peak infusion 35.4 mCi of technetium 99m sestamibi was injected. Stress images were obtained. Stress and rest images were reconstructed and compared in the short axis vertical long and horizontal long axis. Gated images were also obtained. Perfusion SPECT analysis. Review of the stress images demonstrate normal uptake of tracer noted in all areas of the myocardium. The resting images similarly demonstrate normal uptake of tracer noted in all areas of the myocardium. No previous infarct is noted. Gated SPECT analysis. The gated ejection fraction is 65%. Conclusion: Normal pharmacologic myocardial perfusion stress test. Atrial fibrillation noted. Preserved ejection fraction.
--- NOTE | 2017-04-17 11:41 | PCM.PN.CARD ---
Subjectve: Patient doing well this morning. Stress test negative this morning. Objective: Vital Signs Temp Pulse Resp BP Pulse Ox 97.5 F L 96 16 102/62 96 04/17/17 09:48 04/17/17 11:09 04/17/17 09:48 04/17/17 09:48 04/17/17 09:48 Oxygen Flow Rate 2 Oxygen Delivery Method Room Air Weight: 114 lb 15.996 oz Body Mass Index (BMI) 20.3 Intake and Output for Last 24 Hours 04/15/17 04/16/17 04/17/17 23:59 23:59 23:59 Intake Total 360 / 360 685 / 685 Output Total 0 / 0 Balance 360 / 360 685 / 685 General: Awake, Alert, Oriented x 3 HEENT: PERRL, EOMI, Sclera Non Icteric Neck: Supple, Good ROM, No Lymph Node Enlargement Lungs: Clear to auscultation Cardiovascular: Regular Rhythm, Normal S1, Normal S2, No Murmurs, No Rubs, No Gallops Vascular: No Carotid Bruits, Normal Femoral Pulses, Normal Radial Pulses, Normal Dorsalis Pedal Pulse, Normal Posterior Tibial Pulses Abdomen: Bowel Sounds Present, Soft, Non Tender, No HSM, No Organomegaly Extremities: No Cyanosis, No Clubbing, No edema Neurological: No Focal Motor or Sensory Deficit 04/17/17 04:50: WBC 4.9, RBC 3.55 L, Hgb 11.1 L, Hct 34.7 L, MCV 97.7, MCH 31.3, MCHC 32.0, RDW 14.9 H, RDW Differential 53.0 H, Plt Count 246, MPV 10.4 04/17/17 04:50: Sodium 139, Potassium 4.4, Chloride 104, Carbon Dioxide 27.0, Anion Gap 8, BUN 26 H, Creatinine 0.92, Est GFR (MDRD) Af Amer 75, Est GFR (MDRD) Non-Af 62, BUN/Creatinine Ratio 28.1 H, Glucose 140 H, Calcium 8.5 Rhythm: EKG: ECHO: Stress Test: Stress test negative. Cardiac Cath: PCI: CT Surgery: Holter monitor: EPS: PPM: CXR: Chest CT Scan: Assessment/Plan 1. Atrial fibrillation: The patient has new onset atrial fibrillation with a history of hypertension, diabetes, and no known coronary disease. Her heart rate is still yet to be controlled although she is new to beta-blockers. Echocardiogram demonstrated mild global LV dysfunction with an EF of 50-55%, RVSP of 37 mmHg, mild mitral regurgitation. Stress test this morning was negative for inducible ischemia. Since her stress test is negative, we will transition her off Lovenox and switch her to Eliquis 2.5 mg p.o. twice daily. No indication for catheterization at this time. In addition we will discontinue her Lopressor and switch her to Coreg 6.25 mill grams p.o. twice daily given her LV dysfunction, and titrate this up from there to maintain heart rate less than 100. Continue baby aspirin. When she has been on Eliquis for period of 3 weeks, and assuming she does not revert back to normal sinus rhythm, she will be arranged for DC cardioversion. 2. Hyperlipidemia: Her LDL is 36 and her HDL is 95. Needed at this time. 3. Thank you very much for the opportunity to participate in the cardiac care of your patient. Patient may be discharged home tomorrow, Wednesday if her heart rate and blood pressure well controlled. Code Visit Inpatient E&M: [id number] Subs Hosp L2
[2017-04-17 11:46] LABS: Bedside Glucose 205 mg/dL (70-110)
--- NOTE | 2017-04-17 11:48 | PN.CARD_ITS ---
Subjectve: Patient doing well this morning. Stress test negative this morning. Objective: Vital Signs Temp Pulse Resp BP Pulse Ox 97.5 F L 96 16 102/62 96 04/17/17 09:48 04/17/17 11:09 04/17/17 09:48 04/17/17 09:48 04/17/17 09:48 Oxygen Flow Rate 2 Oxygen Delivery Method Room Air Weight: 114 lb 15.996 oz Body Mass Index (BMI) 20.3 Intake and Output for Last 24 Hours 04/15/17 04/16/17 04/17/17 23:59 23:59 23:59 Intake Total 360 / 360 685 / 685 Output Total 0 / 0 Balance 360 / 360 685 / 685 General: Awake, Alert, Oriented x 3 HEENT: PERRL, EOMI, Sclera Non Icteric Neck: Supple, Good ROM, No Lymph Node Enlargement Lungs: Clear to auscultation Cardiovascular: Regular Rhythm, Normal S1, Normal S2, No Murmurs, No Rubs, No Gallops Vascular: No Carotid Bruits, Normal Femoral Pulses, Normal Radial Pulses, Normal Dorsalis Pedal Pulse, Normal Posterior Tibial Pulses Abdomen: Bowel Sounds Present, Soft, Non Tender, No HSM, No Organomegaly Extremities: No Cyanosis, No Clubbing, No edema Neurological: No Focal Motor or Sensory Deficit 04/17/17 04:50: WBC 4.9, RBC 3.55 L, Hgb 11.1 L, Hct 34.7 L, MCV 97.7, MCH 31.3 , MCHC 32.0, RDW 14.9 H, RDW Differential 53.0 H, Plt Count 246, MPV 10.4 04/17/17 04:50: Sodium 139, Potassium 4.4, Chloride 104, Carbon Dioxide 27.0, Anion Gap 8, BUN 26 H, Creatinine 0.92, Est GFR (MDRD) Af Amer 75, Est GFR (MDRD ) Non-Af 62, BUN/Creatinine Ratio 28.1 H, Glucose 140 H, Calcium 8.5 Rhythm: EKG: ECHO: Stress Test: Stress test negative. Cardiac Cath: PCI: CT Surgery: Holter monitor: EPS: PPM: CXR: Chest CT Scan: Assessment/Plan 1. Atrial fibrillation: The patient has new onset atrial fibrillation with a history of hypertension, diabetes, and no known coronary disease. Her heart rate is still yet to be controlled although she is new to beta-blockers. Echocardiogram demonstrated mild global LV dysfunction with an EF of 50-55%, RVSP of 37 mmHg, mild mitral regurgitation. Stress test this morning was negative for inducible ischemia. Since her stress test is negative, we will transition her off Lovenox and switch her to Eliquis 2.5 mg p.o. twice daily. No indication for catheterization at this time. In addition we will discontinue her Lopressor and switch her to Coreg 6.25 mill grams p.o. twice daily given her LV dysfunction, and titrate this up from there to maintain heart rate less than 100. Continue baby aspirin. When she has been on Eliquis for period of 3 weeks, and assuming she does not revert back to normal sinus rhythm, she will be arranged for DC cardioversion. 2. Hyperlipidemia: Her LDL is 36 and her HDL is 95. Needed at this time. 3. Thank you very much for the opportunity to participate in the cardiac care of your patient. Patient may be discharged home tomorrow, Wednesday if her heart rate and blood pressure well controlled. Code Visit Inpatient E&M: [id number] Subs Hosp L2
[2017-04-17] MEDS: Carvedilol 6.25 MG Tablet PO (13:29)
--- NOTE | 2017-04-17 13:54 | PCM.PN.HOSP ---
Patient Problems: Active and Suspected Problems (Last Reviewed 03/17/17 @ 14:24 by Camille Escalante) Valvular heart disease (Acute) A. fib with RVR, new onset (Acute) Right-sided heart failure (Acute) Subjective: No new complaints. Vitals/I&O's: Vital Signs Temp Pulse Resp BP Pulse Ox 36.4 C L 96 16 102/62 96 04/17/17 09:48 04/17/17 11:09 04/17/17 09:48 04/17/17 09:48 04/17/17 09:48 Oxygen Flow Rate 2 Oxygen Delivery Method Room Air Weight: 52.163 kg Body Mass Index (BMI) 20.3 Intake and Output for Last 24 Hours 04/15/17 04/16/17 04/17/17 23:59 23:59 23:59 Intake Total 360 / 360 685 / 685 240 / 240 Output Total 0 / 0 Balance 360 / 360 685 / 685 240 / 240 General: Alert, Cooperative, No apparent distress HEENT: Atraumatic, Normocephalic Neck: No Nodes, Thyroid Normal Size and Texture Lungs: Clear to auscultation, Normal air movement Cardiovascular: Normal S1, Normal S2, Irregular Rate Abdomen: Bowel Sounds Present, Soft, Non Tender Extremities: No edema, Capillary Refill Less than 3 Seconds Psych/Mental Status: Normal Affect, Appropriate Laboratory Results 04/16/17 16:17: POC Glucose 301 H 04/16/17 20:57: POC Glucose 341 H 04/17/17 04:50: WBC 4.9, RBC 3.55 L, Hgb 11.1 L, Hct 34.7 L, MCV 97.7, MCH 31.3, MCHC 32.0, RDW 14.9 H, RDW Differential 53.0 H, Plt Count 246, MPV 10.4 04/17/17 04:50: Sodium 139, Potassium 4.4, Chloride 104, Carbon Dioxide 27.0, Anion Gap 8, BUN 26 H, Creatinine 0.92, Estim Creat Clear Calc 40.16, Est GFR (MDRD) Af Amer 75, Est GFR (MDRD) Non-Af 62, BUN/Creatinine Ratio 28.1 H, Glucose 140 H, Calcium 8.5 04/17/17 06:48: POC Glucose 154 H 04/17/17 11:15: POC Glucose 205 H Current Medications Apixaban (Eliquis) 2.5 mg PO BID [facility] Aspirin (Aspirin, Baby) 81 mg PO DAILY@0800 [facility] Last Admin: 04/17/17 10:09 Dose: 81 mg Bisacodyl (Dulcolax) 10 mg RECTAL DAILY PRN PRN PRN Reason: Constipation Carvedilol (Coreg) 6.25 mg PO BID [facility] Last Admin: 04/17/17 13:29 Dose: 6.25 mg Dextrose (D50w Syringe) 0 gm IV X1 PRN; Protocol PRN Reason: Hypoglycemia Docusate Sodium (Colace) 200 mg PO BID PRN PRN PRN Reason: Constipation Glucagon () 1 mg IM .X1 PRN PRN Reason: Hypoglycemia Lisinopril (Zestril) 20 mg PO DAILY [facility] Last Admin: 04/17/17 10:10 Dose: 20 mg Non-Formulary Medication (Insulin Lispro [Humalog]) 0 units SC UD [facility] Last Admin: 04/16/17 16:15 Dose: Not Given Ondansetron HCl (Zofran) 4 mg IV Q8H PRN PRN PRN Reason: Nausea Oxycodone HCl (Oxyir) 5 mg PO Q4H PRN PRN PRN Reason: Moderate Pain (pain scale 4-5) Sodium Chloride () 5 - 30 ml IV UD PRN PRN Reason: SALINE FLUSH Assessment/Plan Active and Suspected Problems (Last Reviewed 03/17/17 @ 14:24 by Camille Escalante) Valvular heart disease (Acute) A. fib with RVR, new onset (Acute) Right-sided heart failure (Acute) 1. Atrial fibrillation with RVR Improved with change management facilitator to Coreg. Continue to monitor overnight and patient does well then she can be discharged. Stress test negative. [id number] score is 4. Started on Eliquis. 2. DVT prophylaxis: Patient is currently anticoagulated. Code Visit Inpatient E&M: 99812 Subs Hosp L2
[2017-04-17 16:30] LABS: Bedside Glucose 161 mg/dL (70-110)
--- NOTE | 2017-04-17 16:54 | CASEMGMT ---
Per Dr. Valdivia, pt to go home on Eliquis, script e-scribed to Amy previously. Per Amy, Eliquis will be $147/month. Dr. Valdivia aware at this time and no further orders given. Explained to pt and pt given 30 day free trial card with instructions at this time, voices understanding. Angelita HARRELL also voices understanding of all at this time. Maldonado HARRELL CM
[2017-04-17] MEDS: APIXABAN 2.5 MG TABLET PO (22:50)
[2017-04-17 22:56] LABS: Bedside Glucose 216 mg/dL (70-110)
[2017-04-18] VITALS (11 sets, daily range): BP systolic 101–140; BP diastolic 48–85; PULSE 67–126; RESP 16–18; TEMP 36.4–36.8; O2SAT 95–96
[2017-04-18 07:01] LABS: Bedside Glucose 188 mg/dL (70-110)
[2017-04-18] MEDS: Aspirin 81 MG TAB.CHEW PO (07:22)
[2017-04-18] MEDS: Carvedilol 6.25 MG Tablet PO (07:22)
--- NOTE | 2017-04-18 10:15 | NURSING ---
RN SPOKE TO DR GARDINER ABOUT COST OF ELIQUIS, STATES WILL HAVE A 30 DAY SUPPLY THEN CAN FOLLOWUP WITH CARDIOLOGY.
--- NOTE | 2017-04-18 10:16 | PN_ITS ---
Patient Problems: Active and Suspected Problems (Last Reviewed 03/17/17 @ 14:24 by Camille Escalante ) Valvular heart disease (Acute) A. fib with RVR, new onset (Acute) Right-sided heart failure (Acute) Subjective: Denies any complaints. Feels well. Vitals/I&O's: Vital Signs Temp Pulse Resp BP Pulse Ox 36.7 C 126 H 18 119/85 H 95 04/18/17 07:25 04/18/17 07:46 04/18/17 07:25 04/18/17 07:25 04/18/17 07:25 Oxygen Flow Rate 2 Oxygen Delivery Method Room Air Weight: 52.163 kg Body Mass Index (BMI) 20.3 Intake and Output for Last 24 Hours 04/16/17 04/17/17 04/18/17 23:59 23:59 23:59 Intake Total 685 / 685 680 / 680 240 / 240 Output Total 0 / 0 Balance 685 / 685 680 / 680 240 / 240 General: Alert, Cooperative, No apparent distress HEENT: Atraumatic, Normocephalic Neck: No Nodes, Thyroid Normal Size and Texture Lungs: Clear to auscultation, Normal air movement, No rhonchi, No wheeze Cardiovascular: Irregular Rate, Tachycardic Abdomen: Bowel Sounds Present, Soft, Non Tender, Non-Distended Extremities: No edema, No Calf Tenderness Skin: No rashes, No breakdown Psych/Mental Status: Normal Affect, Appropriate Laboratory Results 04/17/17 11:15: POC Glucose 205 H 04/17/17 16:28: POC Glucose 161 H 04/17/17 22:44: POC Glucose 216 H 04/18/17 06:48: POC Glucose 188 H Current Medications Amiodarone HCl (Cordarone) 400 mg PO BID [facility] Apixaban (Eliquis) 2.5 mg PO BID [facility] Last Admin: 04/17/17 22:50 Dose: 2.5 mg Aspirin (Aspirin, Baby) 81 mg PO DAILY@0800 [facility] Last Admin: 04/18/17 07:22 Dose: 81 mg Bisacodyl (Dulcolax) 10 mg RECTAL DAILY PRN PRN PRN Reason: Constipation Carvedilol (Coreg) 6.25 mg PO BID [facility] Last Admin: 04/18/17 07:22 Dose: 6.25 mg Dextrose (D50w Syringe) 0 gm IV X1 PRN; Protocol PRN Reason: Hypoglycemia Docusate Sodium (Colace) 200 mg PO BID PRN PRN PRN Reason: Constipation Glucagon () 1 mg IM .X1 PRN PRN Reason: Hypoglycemia Lisinopril (Zestril) 20 mg PO DAILY [facility] Last Admin: 04/17/17 10:10 Dose: 20 mg Non-Formulary Medication (Insulin Lispro [Humalog]) 0 units SC UD [facility] Last Admin: 04/17/17 14:10 Dose: Not Given Ondansetron HCl (Zofran) 4 mg IV Q8H PRN PRN PRN Reason: Nausea Oxycodone HCl (Oxyir) 5 mg PO Q4H PRN PRN PRN Reason: Moderate Pain (pain scale 4-5) Sodium Chloride () 5 - 30 ml IV UD PRN PRN Reason: SALINE FLUSH Assessment/Plan Active and Suspected Problems (Last Reviewed 03/17/17 @ 14:24 by Camille Escalante ) Valvular heart disease (Acute) A. fib with RVR, new onset (Acute) Right-sided heart failure (Acute) 1. Atrial fibrillation with RVR Improved with waste/materials exchange specialist to Coreg. Heart rates, however ranged from 90s-140s today and overnight. Await further cardiac recommendations pertaining to any potential change in the medications. Patient has been started on amiodarone 400 twice daily by cardiology today. Stress test negative. [id number] score is 4. Started on Eliquis. 2. DVT prophylaxis: Patient is currently anticoagulated. Code Visit Inpatient E&M: 71131 Subs Hosp L2
--- NOTE | 2017-04-18 10:36 | PCM.PN.CARD ---
Subjectve: Patient doing well this morning, still in atrial fibrillation with RVR. Stress test from 04/17/17 was negative. Objective: Vital Signs Temp Pulse Resp BP Pulse Ox 98.0 F 126 H 18 119/85 H 95 04/18/17 07:25 04/18/17 07:46 04/18/17 07:25 04/18/17 07:25 04/18/17 07:25 Oxygen Flow Rate 2 Oxygen Delivery Method Room Air Weight: 114 lb 15.996 oz Body Mass Index (BMI) 20.3 Intake and Output for Last 24 Hours 04/16/17 04/17/17 04/18/17 23:59 23:59 23:59 Intake Total 685 / 685 680 / 680 240 / 240 Output Total 0 / 0 Balance 685 / 685 680 / 680 240 / 240 General: Awake, Alert, Oriented x 3 HEENT: PERRL, EOMI, Sclera Non Icteric Neck: Supple, Good ROM, No Lymph Node Enlargement Lungs: Clear to auscultation Cardiovascular: Irregular Rhythm, Normal S1, Normal S2, No Rubs, No Gallops Murmur Murmur: Grade 2/6, Holosystolic Vascular: No Carotid Bruits, Normal Femoral Pulses, Normal Radial Pulses, Normal Dorsalis Pedal Pulse, Normal Posterior Tibial Pulses Abdomen: Bowel Sounds Present, Soft, Non Tender, No HSM, No Organomegaly Extremities: No Cyanosis, No Clubbing, No edema Neurological: No Focal Motor or Sensory Deficit Rhythm: EKG: ECHO: LVEF of 5055%, mild pulmonary hypertension with an RVSP of 37 mmHg, Mild to moderate mitral regurgitation Stress Test: Negative. Cardiac Cath: PCI: CT Surgery: Holter monitor: EPS: PPM: CXR: Chest CT Scan: Assessment/Plan 1. Atrial fibrillation: The patient has new onset atrial fibrillation with a history of hypertension, diabetes, and no known coronary disease. Her heart rate is still yet to be controlled although she is new to beta-blockers. Echocardiogram demonstrated mild global LV dysfunction with an EF of 50-55%, RVSP of 37 mmHg, mild mitral regurgitation. Stress test this morning was negative for inducible ischemia. Patient's heart rate remains above 100, despite switching her from Lopressor to Coreg, recommend increasing Coreg to 12.5 mg p.o. twice daily, and starting her on amiodarone 40 mg p.o. twice daily for 5 days followed by 200 mg a day. In addition the patient has expressed interest in starting Coumadin rather than Eliquis due to cost issues. I am in agreement with this. As we have no plans for catheterization recommend starting her on Coumadin 5 mg today, tomorrow, and switching her to 2.5 mg p.o. daily. With the addition of amiodarone, she will most likely have augmentation of her Coumadin. Assuming she does not revert back to normal sinus rhythm with amiodarone and beta-yuni assistance, we will set her up for DC cardioversion in 3-4 weeks time. Continue baby aspirin. 2. Hyperlipidemia: Her LDL is 36 and her HDL is 95. Needed at this time. 3. Thank you very much for the opportunity to participate in the cardiac care of your patient. Code Visit Inpatient E&M: 11625 Subs Hosp L2
[2017-04-18] MEDS: Amiodarone 200 MG Tablet 400 MG PO ×2 (10:49→21:16)
[2017-04-18] MEDS: Lisinopril 20 MG Tablet PO (10:49)
[2017-04-18] MEDS: APIXABAN 2.5 MG TABLET PO ×2 (10:49→21:17)
[2017-04-18 11:31] LABS: Bedside Glucose 319 mg/dL (70-110)
[2017-04-18 17:01] LABS: Bedside Glucose 311 mg/dL (70-110)
[2017-04-18 21:35] LABS: Bedside Glucose 278 mg/dL (70-110)
[2017-04-19] VITALS (28 sets, daily range): BP systolic 72–156; BP diastolic 38–95; PULSE 56–123; RESP 10–60; TEMP 36.4–36.8; O2SAT 95–100
[2017-04-19 06:45] LABS: Bedside Glucose 250 mg/dL (70-110)
--- NOTE | 2017-04-19 08:00 | EKG12_ITS ---
Test Reason : MORNING EKG Blood Pressure : / mmHG Vent. Rate : 101 BPM Atrial Rate : 267 BPM P-R Int : 000 ms QRS Dur : 088 ms QT Int : 350 ms P-R-T Axes : 000 035 -05 degrees QTc Int : 453 ms Atrial flutter with variable A-V block Abnormal ECG When compared with ECG of 17-APR-2017 05:21, MANUAL COMPARISON REQUIRED, DATA IS UNCONFIRMED Confirmed by UMA DAILY ([id number]), make up editor PAMELA HAYES ([id number]) on 04/22/2017 12:00:26 PM Referred By: Muriel Burch Confirmed By:UMA DAILY
[2017-04-19] MEDS: Aspirin 81 MG TAB.CHEW PO (08:21)
[2017-04-19] MEDS: APIXABAN 2.5 MG TABLET PO ×2 (08:21→21:07)
[2017-04-19] MEDS: Carvedilol 12.5 MG Tablet PO (08:21)
[2017-04-19] MEDS: Amiodarone 200 MG Tablet 400 MG PO (08:21)
[2017-04-19] MEDS: Lisinopril 20 MG Tablet PO (08:22)
--- NOTE | 2017-04-19 09:50 | CASEMGMT ---
JULIO CESAR WALKER notified that pt could afford her Eliquis. JULIO CESAR WALKER called to Herb, pharmacist @ [facility]. He states medication cost $147, of which $100 was deductible and this has been met. Cost would be $47 monthly. JULIO CESAR WALKER intro role of CM to patient in room. Above information given to her, she states she is able to afford medication. Dr. Gutierrez also updated. Lawson GRACE RN ACM
--- NOTE | 2017-04-19 10:36 | PCM.DC ---
- Discharge Diagnoses Current Active Problems: Current Active and Chronic Problems (Last Reviewed 03/17/17 @ 14:24 by Camille Escalante) Valvular heart disease (Acute) A. fib with RVR, new onset (Acute) Right-sided heart failure (Acute) You will use the following diet at home:: No restrictions Allergies/Adverse Reactions: Allergies No Known Allergies Allergy (Verified 03/17/17 14:15) Medications to take at Discharge enalapril maleate 20 mg tablet 20 mg PO DAILY 03/17/17 insulin lispro 100 unit/mL subcutaneous solution See Label Instructions SC QDAY 03/17/17 Apixaban [Eliquis] 2.5 mg PO BID #60 tab 04/17/17 Amiodarone HCl [Cordarone] 200 mg PO UD #100 tab 04/19/17 The following prescriptions were given: Amiodarone HCl [Cordarone] 200 mg PO UD #100 tab Apixaban [Eliquis] 2.5 mg PO BID #60 tab Primary Care Physician: Care Physician,No Primary [Primary Care Provider] - Please Follow Up With: Ge Hong MD When: in 2-4 weeks Proposed Discharge Date: 04/19/17
--- NOTE | 2017-04-19 10:40 | DS.PCM_ITS ---
Discharge Date and Diagnosis - Problem List Patient Problems: Active and Suspected Problems (Last Reviewed 03/17/17 @ 14:24 by Camille Escalante ) New onset a-fib (Acute) Date of Admission: 04/15/17 Date of Discharge: 04/19/17 - Primary Discharge Diagnosis Active and Suspected Problems (Last Reviewed 03/17/17 @ 14:24 by Camille Escalante ) New onset a-fib (Acute) - Secondary Discharge Diagnosis Chronic Problems (Last Reviewed 03/17/17 @ 14:24 by Camille Escalante) Valvular heart disease (Chronic) Right-sided heart failure (Chronic) Hyperlipidemia due to type 1 diabetes mellitus (Chronic) Uncontrolled type 1 diabetes mellitus with complication, Hospital Course and Treatment Imaging Results: Clinical Impression(s) from Imaging Studies Chest X-Ray 04/15/17 12:19 IMPRESSION: Small bilateral pleural effusions with underlying infiltration and/or atelectasis. Electronically Signed: Isra Claros MD at 12:49 EST Tel [phone], Service support , Operations: None Summary of Care Provided: The patient is a 81 year old F who was sent from PCPs office with bilateral lower extremity swelling found to have new onset A. fib on admission 1. New onset A. fib with RVR: Patient admitted to monitored bed managed initially with Cardizem seen in consultation by cardiology patient started on beta-blockers heart rate however remain uncontrolled amiodarone was added to her therapy prior to discharge. Patient was placed on systemic anticoagulation with Eliquis prescription written on discharge part of patient's evaluation underwent a nuclear stress test which was negative for stress-induced 2. Bilateral lower extremity edema secondary to right-sided heart failure managed with Lasix echo obtained demonstrated RVSP of 37 mmHg with mild atrial regurgitation EF was estimated to be 60% on the echo obtained during her hospital stay 3. Diabetes mellitus type 1 on insulin pump with labile control 4. Hypertension-blood pressure controlled, home medications continued with dose adjustment as needed 5. DVT prophylaxis patient was on systemic anticoagulation Discharge Diet: 1800 Calorie Control Diet Home Medications: Medications to take at Discharge enalapril maleate 20 mg tablet 20 mg PO DAILY 03/17/17 insulin lispro 100 unit/mL subcutaneous solution See Label Instructions [facility] QDAY 03/17/17 Apixaban [Eliquis] 2.5 mg PO BID #60 tab 04/17/17 Amiodarone HCl [Cordarone] 200 mg PO UD #100 tab 04/19/17 Aspirin [Aspirin, Baby] 81 mg PO DAILY@0800 #60 tab.chew 04/19/17 Carvedilol [Coreg (Beta Zoraida)] 12.5 mg PO BID #60 tab 04/19/17 Following Prescrptions Were Given to Patient: Amiodarone HCl [Cordarone] 200 mg PO UD #100 tab Apixaban [Eliquis] 2.5 mg PO BID #60 tab Aspirin [Aspirin, Baby] 81 mg PO DAILY@0800 #60 tab.chew Carvedilol [Coreg (Beta Zoraida)] 12.5 mg PO BID #60 tab Primary Care Physician: Care Physician,No Primary [Primary Care Provider] - Please Follow Up With: Ge Hong MD When: in 2-4 weeks Disposition: Home Minutes spent on discharge:: 35 Patient Condition:: Stable Meaningful Use Info Meaningful Use Diagnoses (Choose all that apply): CHF - CHF MAGDA/ARB ordered at discharge?: Yes Documented LVEF (%): 60 Code Visit Inpatient E&M: 68588 Disch Hosp
[2017-04-19] MEDS: 0.9% NaCl Peripheral Flush Adult/Peds IV ×2 (12:02→21:13)
--- NOTE | 2017-04-19 12:04 | PCM.PN.CARD ---
Subjectve: Patient doing well this morning, still in atrial fibrillation but doing well. Tolerating Eliquis well. Heart rate well controlled. Objective: Vital Signs Temp Pulse Resp BP Pulse Ox 97.6 F L 61 18 86/38 L 98 04/19/17 11:23 04/19/17 11:23 04/19/17 11:23 04/19/17 11:23 04/19/17 11:23 Oxygen Flow Rate 2 Oxygen Delivery Method Room Air Weight: 114 lb 15.996 oz Body Mass Index (BMI) 20.3 Intake and Output for Last 24 Hours 04/17/17 04/18/17 04/19/17 23:59 23:59 23:59 Intake Total 680 / 680 1160 / 1160 300 / 300 Balance 680 / 680 1160 / 1160 300 / 300 General: Awake, Alert, Oriented x 3 HEENT: PERRL, EOMI, Sclera Non Icteric Neck: Supple, Good ROM, No Lymph Node Enlargement Lungs: Clear to auscultation Cardiovascular: Irregular Rhythm, Normal S1, Normal S2, No Murmurs, No Rubs, No Gallops Murmur Murmur: Grade 2/6, Holosystolic Vascular: No Carotid Bruits, Normal Femoral Pulses, Normal Radial Pulses, Normal Dorsalis Pedal Pulse, Normal Posterior Tibial Pulses Abdomen: Bowel Sounds Present, Soft, Non Tender, No HSM, No Organomegaly Extremities: No Cyanosis, No Clubbing, No edema Neurological: No Focal Motor or Sensory Deficit Rhythm: EKG: ECHO: Stress Test: Cardiac Cath: PCI: CT Surgery: Holter monitor: EPS: PPM: CXR: Chest CT Scan: Assessment/Plan 1. Atrial fibrillation: The patient has new onset atrial fibrillation with a history of hypertension, diabetes, and no known coronary disease. Her heart rate i is much better controlled on higher dose of beta blockers. Amiodarone added yesterday, EKG still shows atrial fibrillation with controlled ventricular response. Echocardiogram demonstrated mild global LV dysfunction with an EF of 50-55%, RVSP of 37 mmHg, mild mitral regurgitation. Stress test this morning was negative for inducible ischemia. Patient's insurance was able to cover Eliquis, and have recommended starting Eliquis per protocol. In addition she will continue amiodarone 40 mg p.o. twice daily for total of 5 days, followed by 200 mg a day for period of 3 weeks time. If she is not chemically converted at that time she will then undergo a elective DC cardioversion. In addition she will continue her current dose of Coreg as this has achieved adequate heart rate control. Continue baby aspirin for primary prophylaxis given her diabetes.. 2. Hyperlipidemia: Her LDL is 36 and her HDL is 95. Needed at this time. 3. Thank you very much for the opportunity to participate in the cardiac care of your patient. Discussed with Dr. Gutierrez. patient may be discharged home and follow-up with me going forward.. Code Visit Inpatient E&M: 96666 Subs Hosp L2
[2017-04-19 12:11] LABS: Bedside Glucose 294 mg/dL (70-110)
--- NOTE | 2017-04-19 14:06 | PCM.PN.HOSP ---
Subjective: Decision to discharge patient home discontinued after patient was found to be hypotensive with blood pressure in the 70s. Resuscitated with IV fluids his antihypertensive medications adjusted Objective: GENERAL: cooperative HEENT: Clear conjunctiva, NECK; supple, normal thyroid, CHEST: Clear to auscultation bilaterally, HEART: Irregular S1 S2, ABDOMEN: soft, non-tender, normoactive bowel sounds, RECTAL: deferred EXTREMITIES: No clubbing, no cyanosis. BINMAN: Awake no lateralizing signs. SKIN: No Rash Vitals/I&O's: Vital Signs Temp Pulse Resp BP Pulse Ox 98.0 F 60 18 82/43 L 96 04/19/17 12:25 04/19/17 12:25 04/19/17 12:25 04/19/17 12:25 04/19/17 12:25 Oxygen Flow Rate 2 Oxygen Delivery Method Room Air Weight: 52.163 kg Body Mass Index (BMI) 20.3 Intake and Output for Last 24 Hours 04/17/17 04/18/17 04/19/17 23:59 23:59 23:59 Intake Total 680 / 680 1160 / 1160 910 / 910 Balance 680 / 680 1160 / 1160 910 / 910 Laboratory Results 04/18/17 16:56: POC Glucose 311 H 04/18/17 21:28: POC Glucose 278 H 04/19/17 06:40: POC Glucose 250 H 04/19/17 12:03: POC Glucose 294 H Current Medications Amiodarone HCl (Cordarone) 400 mg PO BID [facility] Last Admin: 04/19/17 08:21 Dose: 400 mg Apixaban (Eliquis) 2.5 mg PO BID [facility] Last Admin: 04/19/17 08:21 Dose: 2.5 mg Aspirin (Aspirin, Baby) 81 mg PO DAILY@0800 [facility] Last Admin: 04/19/17 08:21 Dose: 81 mg Bisacodyl (Dulcolax) 10 mg RECTAL DAILY PRN PRN PRN Reason: Constipation Carvedilol (Coreg) 6.25 mg PO BID [facility] Dextrose (D50w Syringe) 0 gm IV X1 PRN; Protocol PRN Reason: Hypoglycemia Docusate Sodium (Colace) 200 mg PO BID PRN PRN PRN Reason: Constipation Glucagon () 1 mg IM .X1 PRN PRN Reason: Hypoglycemia Lisinopril (Zestril) 20 mg PO DAILY [facility] Last Admin: 04/19/17 08:22 Dose: 20 mg Lisinopril (Zestril) 2.5 mg PO DAILY [facility] Non-Formulary Medication (Insulin Lispro [Humalog]) 0 units SC UD [facility] Last Admin: 04/19/17 12:02 Dose: Not Given Ondansetron HCl (Zofran) 4 mg IV Q8H PRN PRN PRN Reason: Nausea Oxycodone HCl (Oxyir) 5 mg PO Q4H PRN PRN PRN Reason: Moderate Pain (pain scale 4-5) Sodium Chloride () 5 - 30 ml IV UD PRN PRN Reason: SALINE FLUSH Last Admin: 04/19/17 12:02 Dose: 10 ml Assessment/Plan The patient is a 81 year old F who was sent from PCPs office with bilateral lower extremity swelling found to have new onset A. fib on admission 1. New onset A. fib with RVR: Patient admitted to monitored bed managed initially with Cardizem seen in consultation by cardiology patient started on beta-blockers heart rate however remain uncontrolled amiodarone was added to her therapy prior to discharge. Patient was placed on systemic anticoagulation with Eliquis prescription written on discharge part of patient's evaluation underwent a nuclear stress test which was negative for stress-induced 2. Bilateral lower extremity edema secondary to right-sided heart failure managed with Lasix echo obtained demonstrated RVSP of 37 mmHg with mild atrial regurgitation EF was estimated to be 60% on the echo obtained during her hospital stay 3. Diabetes mellitus type 1 on insulin pump with labile control 4. Hypertension-blood pressure controlled, home medications continued with dose adjustment as needed 5. DVT prophylaxis patient was on systemic anticoagulation Code Visit Inpatient E&M: 10494 [facility] Hosp L3
--- NOTE | 2017-04-19 14:09 | PN_ITS ---
Subjective: Decision to discharge patient home discontinued after patient was found to be hypotensive with blood pressure in the 70s. Resuscitated with IV fluids his antihypertensive medications adjusted Objective: GENERAL: cooperative HEENT: Clear conjunctiva, NECK; supple, normal thyroid, CHEST: Clear to auscultation bilaterally, HEART: Irregular S1 S2, ABDOMEN: soft, non-tender, normoactive bowel sounds, RECTAL: deferred EXTREMITIES: No clubbing, no cyanosis. FRUIT DUMPER: Awake no lateralizing signs. SKIN: No Rash Vitals/I&O's: Vital Signs Temp Pulse Resp BP Pulse Ox 98.0 F 60 18 82/43 L 96 04/19/17 12:25 04/19/17 12:25 04/19/17 12:25 04/19/17 12:25 04/19/17 12:25 Oxygen Flow Rate 2 Oxygen Delivery Method Room Air Weight: 52.163 kg Body Mass Index (BMI) 20.3 Intake and Output for Last 24 Hours 04/17/17 04/18/17 04/19/17 23:59 23:59 23:59 Intake Total 680 / 680 1160 / 1160 910 / 910 Balance 680 / 680 1160 / 1160 910 / 910 Laboratory Results 04/18/17 16:56: POC Glucose 311 H 04/18/17 21:28: POC Glucose 278 H 04/19/17 06:40: POC Glucose 250 H 04/19/17 12:03: POC Glucose 294 H Current Medications Amiodarone HCl (Cordarone) 400 mg PO BID [facility] Last Admin: 04/19/17 08:21 Dose: 400 mg Apixaban (Eliquis) 2.5 mg PO BID [facility] Last Admin: 04/19/17 08:21 Dose: 2.5 mg Aspirin (Aspirin, Baby) 81 mg PO DAILY@0800 [facility] Last Admin: 04/19/17 08:21 Dose: 81 mg Bisacodyl (Dulcolax) 10 mg RECTAL DAILY PRN PRN PRN Reason: Constipation Carvedilol (Coreg) 6.25 mg PO BID [facility] Dextrose (D50w Syringe) 0 gm IV X1 PRN; Protocol PRN Reason: Hypoglycemia Docusate Sodium (Colace) 200 mg PO BID PRN PRN PRN Reason: Constipation Glucagon () 1 mg IM .X1 PRN PRN Reason: Hypoglycemia Lisinopril (Zestril) 20 mg PO DAILY [facility] Last Admin: 04/19/17 08:22 Dose: 20 mg Lisinopril (Zestril) 2.5 mg PO DAILY [facility] Non-Formulary Medication (Insulin Lispro [Humalog]) 0 units SC UD [facility] Last Admin: 04/19/17 12:02 Dose: Not Given Ondansetron HCl (Zofran) 4 mg IV Q8H PRN PRN PRN Reason: Nausea Oxycodone HCl (Oxyir) 5 mg PO Q4H PRN PRN PRN Reason: Moderate Pain (pain scale 4-5) Sodium Chloride () 5 - 30 ml IV UD PRN PRN Reason: SALINE FLUSH Last Admin: 04/19/17 12:02 Dose: 10 ml Assessment/Plan The patient is a 81 year old F who was sent from PCPs office with bilateral lower extremity swelling found to have new onset A. fib on admission 1. New onset A. fib with RVR: Patient admitted to monitored bed managed initially with Cardizem seen in consultation by cardiology patient started on beta-blockers heart rate however remain uncontrolled amiodarone was added to her therapy prior to discharge. Patient was placed on systemic anticoagulation with Eliquis prescription written on discharge part of patient's evaluation underwent a nuclear stress test which was negative for stress-induced 2. Bilateral lower extremity edema secondary to right-sided heart failure managed with Lasix echo obtained demonstrated RVSP of 37 mmHg with mild atrial regurgitation EF was estimated to be 60% on the echo obtained during her hospital stay 3. Diabetes mellitus type 1 on insulin pump with labile control 4. Hypertension-blood pressure controlled, home medications continued with dose adjustment as needed 5. DVT prophylaxis patient was on systemic anticoagulation Code Visit Inpatient E&M: 62625 [facility] Hosp L3
--- NOTE | 2017-04-19 16:10 | RAD_ITS ---
STUDY: X-RAY CHEST REASON FOR EXAM: Female, 81 years old. Increasing shortness of breath. TECHNIQUE: Single frontal view of the chest. COMPARISON: April 15, 2017 FINDINGS: The diffuse interstitial pattern present on the prior study in the bases has now become diffuse. There are bilateral pleural effusions, right greater than left, which are larger than on the prior study. The findings are compatible with worsening interstitial edema/congestive failure. There is stable cardiomegaly. Normal mediastinum and jarrell. Normal visualized pulmonary arteries. There is aortic tortuosity with calcification unchanged. Normal visualized thoracic spine. Normal visualized ribs, clavicles, and shoulders. There is no demonstrated abnormality of the visualized soft tissue structures of the upper abdomen. RAD/Chest 1 View (Portable) IMPRESSION: Findings representing worsening interstitial edema/congestive failure Electronically Signed: Isael Solis MD at 16:32 EST , Service support ,
[2017-04-19 16:11] LABS: Bedside Glucose 252 mg/dL (70-110)
--- NOTE | 2017-04-19 16:15 | EKG12_ITS ---
Test Reason : Blood Pressure : / mmHG Vent. Rate : 063 BPM Atrial Rate : 056 BPM P-R Int : 000 ms QRS Dur : 086 ms QT Int : 470 ms P-R-T Axes : 000 048 024 degrees QTc Int : 480 ms Atrial flutter wtih 4:1 conduction Prolonged QT Abnormal ECG When compared with ECG of 19-APR-2017 05:22, MANUAL COMPARISON REQUIRED, DATA IS UNCONFIRMED Confirmed by UMA DAILY ([id number]), city editor PAMELA HAYES ([id number]) on 04/22/2017 12:02:03 PM Referred By: Muriel uBrch Confirmed By:UMA DAILY
[2017-04-19 16:26] LABS: Absolute Neutrophil Count 3.8 X10^3/uL (2.0-7.7); Basophil# 0.02 X10^3/uL; Basophil% 0.3 % (0-1); Eosinophil# 0.13 X10^3/uL; Eosinophils% 2.1 % (0-5); Hematocrit 35.5 % (37-47); Hemoglobin 11.3 g/dl (12.0-15.0); Lymphocyte % 24.4 % (19-41); Mean Corp Hgb Conc 31.8 g/gl (32-36); Mean Corpuscular Hgb 31.1 pg (27.0-32.0); Mean Corpuscular Volume 97.8 fL (81-99); Mean Platelet Vol. 10.4 fl (6.2-12.0); Monocyte# 0.69 X10^3/uL; Monocyte% 11.2 % (0-10); Neutrophil # 3.81 X10^3/uL (2.7-7.7); Neutrophil % 61.8 % (47-70); Platelet Count 224 K/mm3 (150-450); RBC Distribution Width CV 14.7 % (11.6-14.6); RBC Distribution Width SD 52.6 fl (35.1-43.9); Red Blood Count 3.63 M/mm3 (4.2-5.4); White Blood Count 6.2 K/mm3 (4.4-11.0)
[2017-04-19 16:28] LABS: POSITIVE COUNT NO; POSITIVE DIFFERENTIAL NO; POSITIVE MORPHOLOGY NO
[2017-04-19 16:36] LABS: International Normalized Ratio 1.3; Prothrombin Time (Protime)PT. 15.5 SECONDS (11.7-14.9)
[2017-04-19 17:02] LABS: ALB/GLOB Ratio 0.9 RATIO (0.9-2.4); AST(SGOT) 25 U/L (15-37); Alanine Aminotransfer ALT/SGPT 49 U/L (13-56); Alkaline Phosphatase 178 U/L (45-117); Anion Gap 9 (5-15); BUN 22 mg/dL (7-18); Calcium,Total 8.4 mg/dL (8.5-10.1); Chloride 104 mmol/L (98-107); EST Glomerular Filtration Rate 51 mL/min (>60); Est Glom Filt Rate - Afr Amer 61 mL/min (>60); Estimated Creatinine Clearance 33.59 ml/min; Globulin 3.3 g/dL (2.2-4.2); Glucose 231 mg/dL (70-110); Magnesium 2.1 mg/dL (1.6-2.6); Potassium 4.4 mmol/L (3.5-5.1); Protein, Total 6.3 g/dL (6.4-8.2); Sodium Level 138 mmol/L (136-145)
[2017-04-19 18:15] LABS: M R Staph aureus DNA By PCR Negative (Negative)
[2017-04-19 18:16] LABS: Probe Check PASS; Specimen Processing Control PASS
[2017-04-19 21:21] LABS: Bedside Glucose 209 mg/dL (70-110)
[2017-04-20] VITALS (23 sets, daily range): BP systolic 81–167; BP diastolic 43–113; PULSE 61–126; RESP 7–18; TEMP 36.6–37.2; O2SAT 94–100
[2017-04-20] MEDS: 0.9% Normal Saline 1,000 ML 75 ML IV ×2 (01:57→13:59)
--- NOTE | 2017-04-20 07:53 | PCM.PN.HOSP ---
Subjective: Patient was transferred to the ICU on 04/19/17 after she bradycardia down. Continuous telemetry monitoring demonstrated significant pauses as long as 40 seconds. Patient successfully resuscitated with IV fluids her carvedilol as well as amiodarone subsequently held. 04/20/17 patient heart rate up this morning to 125; Dr. Hong patient's podiatric assistant notified by nurses and order was given for patient to receive both amiodarone as well as carvedilol. Patient denies any chest pain or shortness of breath no lightheadedness this a.m. Objective: GENERAL: cooperative HEENT: Clear conjunctiva, NECK; supple, normal thyroid, CHEST: Clear to auscultation bilaterally, HEART: Irregular S1 S2, tachycardic ABDOMEN: soft, non-tender, normoactive bowel sounds, RECTAL: deferred EXTREMITIES: No clubbing, no cyanosis. RADIO NEWS ANCHOR: Awake no lateralizing signs. SKIN: No Rash Vitals/I&O's: Vital Signs Temp Pulse Resp BP Pulse Ox 98.9 F 125 H 16 138/91 H 99 04/20/17 04:00 04/20/17 07:32 04/20/17 07:00 04/20/17 07:00 04/20/17 07:43 Oxygen Flow Rate 2 Oxygen Delivery Method Nasal Cannula Weight: 55.6 kg Body Mass Index (BMI) 20.3 Orthostatic Vital Signs Start: 04/20/17 05:54 Freq: q24h Status: Active Protocol: Activity Type Activity Date Activity User E-Sign Co-Sign Detail Recorded Client Recorded Date Recorded By Document 04/20/17 05:54 [facility] [id number] 04/20/17 06:58 DMM 04/20/17 05:54 Orthostatic Vitals Standing -Blood Pressure (90/60-120/80 mm Hg) 146/100 H Sitting -Blood Pressure (90/60-120/80 mm Hg) 157/95 H Lying -Blood Pressure (90/60-120/80 mm Hg) 167/107 H Intake and Output for Last 24 Hours 04/18/17 04/19/17 04/20/17 23:59 23:59 23:59 Intake Total 1160 / 1160 910 / 910 448 / 448 Output Total 215 / 215 Balance 1160 / 1160 910 / 910 233 / 233 Laboratory Results 04/19/17 12:03: POC Glucose 294 H 04/19/17 16:00: POC Glucose 252 H 04/19/17 16:05: WBC 6.2, RBC 3.63 L, Hgb 11.3 L, Hct 35.5 L, MCV 97.8, MCH 31.1, MCHC 31.8 L, RDW 14.7 H, RDW Differential 52.6 H, Plt Count 224, MPV 10.4, Immature Gran % (Auto) 0.200, Neut % (Auto) 61.8, Lymph % (Auto) 24.4, Parker % (Auto) 11.2 H, Eos % (Auto) 2.1, Baso % (Auto) 0.3, Absolute Neuts (auto) 3.8, Absolute Lymphs (auto) 1.50, Total Counted Not Reportable 04/19/17 16:05: PT 15.5 H, INR 1.3 04/19/17 16:05: Sodium 138, Potassium 4.4, Chloride 104, Carbon Dioxide 25.0, Anion Gap 9, BUN 22 H, Creatinine 1.10 H, Estim Creat Clear Calc 33.59, Est GFR (MDRD) Af Amer 61, Est GFR (MDRD) Non-Af 51 L, BUN/Creatinine Ratio 20.0, Glucose 231 H, Calcium 8.4 L, Magnesium 2.1, Total Bilirubin 0.30, AST 25, ALT 49, Alkaline Phosphatase 178 H, Troponin I < 0.02, Total Protein 6.3 L, Albumin 3.0 L, Globulin 3.3, Albumin/Globulin Ratio 0.9 04/19/17 16:50: MRSA (PCR) Negative 04/19/17 20:00: Troponin I < 0.02 04/19/17 21:12: POC Glucose 209 H 04/19/17 23:57: Troponin I < 0.02 04/20/17 04:00: Troponin I < 0.02 Current Medications Amiodarone HCl (Cordarone) 200 mg PO X1 ONE Stop: 04/20/17 07:22 Apixaban (Eliquis) 2.5 mg PO BID [facility] Last Admin: 04/19/17 21:07 Dose: 2.5 mg Aspirin (Aspirin, Baby) 81 mg PO DAILY@0800 [facility] Last Admin: 04/19/17 08:21 Dose: 81 mg Bisacodyl (Dulcolax) 10 mg RECTAL DAILY PRN PRN PRN Reason: Constipation Carvedilol (Coreg) 6.25 mg PO BID [facility] Dextrose (D50w Syringe) 0 gm IV X1 PRN; Protocol PRN Reason: Hypoglycemia Docusate Sodium (Colace) 200 mg PO BID PRN PRN PRN Reason: Constipation Glucagon () 1 mg IM .X1 PRN PRN Reason: Hypoglycemia Sodium Chloride () 1,000 mls @ 75 mls/hr IV .[id number] [facility] Last Admin: 04/20/17 01:57 Dose: 75 mls/hr Non-Formulary Medication (Insulin Lispro [Humalog]) 0 units SC UD [facility] Last Admin: 04/19/17 12:02 Dose: Not Given Ondansetron HCl (Zofran) 4 mg IV Q8H PRN PRN PRN Reason: Nausea Oxycodone HCl (Oxyir) 5 mg PO Q4H PRN PRN PRN Reason: Moderate Pain (pain scale 4-5) Sodium Chloride () 5 - 30 ml IV UD PRN PRN Reason: SALINE FLUSH Last Admin: 04/19/17 21:13 Dose: 10 ml Assessment/Plan The patient is a 81 year old F who was sent from PCPs office with bilateral lower extremity swelling found to have new onset A. fib on admission 1. New onset A. fib with RVR: Patient admitted to monitored bed managed initially with Cardizem seen in consultation by cardiology patient started on beta-blockers heart rate however remain uncontrolled amiodarone was added to her therapy prior to discharge. Patient was placed on systemic anticoagulation with Eliquis prescription. Plan to discharge patient home discontinued after patient developed significant hypotension. She later went into sinus pauses resulted in rapid response being called and the patient and patient being transferred to the intensive care unit. Heart rate of as of the morning of 04/20/17 patient antiarrhythmic medications resumed. 2. Bilateral lower extremity edema secondary to right-sided heart failure managed with Lasix echo obtained demonstrated RVSP of 37 mmHg with mild atrial regurgitation EF was estimated to be 60% on the echo obtained during her hospital stay 3. Diabetes mellitus type 1 on insulin pump with labile control 4. Hypertension-blood pressure controlled, home medications continued with dose adjustment as needed 5. DVT prophylaxis patient was on systemic anticoagulation Code Visit Inpatient E&M: [id number] Subs Hosp L3
--- NOTE | 2017-04-20 07:56 | PN_ITS ---
Subjective: Patient was transferred to the ICU on 04/19/17 after she bradycardia down. Continuous telemetry monitoring demonstrated significant pauses as long as 40 seconds. Patient successfully resuscitated with IV fluids her carvedilol as well as amiodarone subsequently held. 04/20/17 patient heart rate up this morning to 125; Dr. Hong patient's internal controls manager notified by nurses and order was given for patient to receive both amiodarone as well as carvedilol. Patient denies any chest pain or shortness of breath no lightheadedness this a.m. Objective: GENERAL: cooperative HEENT: Clear conjunctiva, NECK; supple, normal thyroid, CHEST: Clear to auscultation bilaterally, HEART: Irregular S1 S2, tachycardic ABDOMEN: soft, non-tender, normoactive bowel sounds, RECTAL: deferred EXTREMITIES: No clubbing, no cyanosis. LABORER SHIPYARD: Awake no lateralizing signs. SKIN: No Rash Vitals/I&O's: Vital Signs Temp Pulse Resp BP Pulse Ox 98.9 F 125 H 16 138/91 H 99 04/20/17 04:00 04/20/17 07:32 04/20/17 07:00 04/20/17 07:00 04/20/17 07:43 Oxygen Flow Rate 2 Oxygen Delivery Method Nasal Cannula Weight: 55.6 kg Body Mass Index (BMI) 20.3 Orthostatic Vital Signs Start: 04/20/17 05:54 Freq: q24h Status: Active Protocol: Activity Type Activity Date Activity User E-Sign Co-Sign Detail Recorded Client Recorded Date Recorded By Document 04/20/17 05:54 [facility] [id number] 04/20/17 06:58 DMM 04/20/17 05:54 Orthostatic Vitals Standing -Blood Pressure (90/60-120/80 mm Hg) 146/100 H Sitting -Blood Pressure (90/60-120/80 mm Hg) 157/95 H Lying -Blood Pressure (90/60-120/80 mm Hg) 167/107 H Intake and Output for Last 24 Hours 04/18/17 04/19/17 04/20/17 23:59 23:59 23:59 Intake Total 1160 / 1160 910 / 910 448 / 448 Output Total 215 / 215 Balance 1160 / 1160 910 / 910 233 / 233 Laboratory Results 04/19/17 12:03: POC Glucose 294 H 04/19/17 16:00: POC Glucose 252 H 04/19/17 16:05: WBC 6.2, RBC 3.63 L, Hgb 11.3 L, Hct 35.5 L, MCV 97.8, MCH 31.1 , MCHC 31.8 L, RDW 14.7 H, RDW Differential 52.6 H, Plt Count 224, MPV 10.4, Immature Gran % (Auto) 0.200, Neut % (Auto) 61.8, Lymph % (Auto) 24.4, Hinds % ( Auto) 11.2 H, Eos % (Auto) 2.1, Baso % (Auto) 0.3, Absolute Neuts (auto) 3.8, Absolute Lymphs (auto) 1.50, Total Counted Not Reportable 04/19/17 16:05: PT 15.5 H, INR 1.3 04/19/17 16:05: Sodium 138, Potassium 4.4, Chloride 104, Carbon Dioxide 25.0, Anion Gap 9, BUN 22 H, Creatinine 1.10 H, Estim Creat Clear Calc 33.59, Est GFR (MDRD) Af Amer 61, Est GFR (MDRD) Non-Af 51 L, BUN/Creatinine Ratio 20.0, Glucose 231 H, Calcium 8.4 L, Magnesium 2.1, Total Bilirubin 0.30, AST 25, ALT 49, Alkaline Phosphatase 178 H, Troponin I < 0.02, Total Protein 6.3 L, Albumin 3.0 L, Globulin 3.3, Albumin/Globulin Ratio 0.9 04/19/17 16:50: MRSA (PCR) Negative 04/19/17 20:00: Troponin I < 0.02 04/19/17 21:12: POC Glucose 209 H 04/19/17 23:57: Troponin I < 0.02 04/20/17 04:00: Troponin I < 0.02 Current Medications Amiodarone HCl (Cordarone) 200 mg PO X1 ONE Stop: 04/20/17 07:22 Apixaban (Eliquis) 2.5 mg PO BID [facility] Last Admin: 04/19/17 21:07 Dose: 2.5 mg Aspirin (Aspirin, Baby) 81 mg PO DAILY@0800 [facility] Last Admin: 04/19/17 08:21 Dose: 81 mg Bisacodyl (Dulcolax) 10 mg RECTAL DAILY PRN PRN PRN Reason: Constipation Carvedilol (Coreg) 6.25 mg PO BID [facility] Dextrose (D50w Syringe) 0 gm IV X1 PRN; Protocol PRN Reason: Hypoglycemia Docusate Sodium (Colace) 200 mg PO BID PRN PRN PRN Reason: Constipation Glucagon () 1 mg IM .X1 PRN PRN Reason: Hypoglycemia Sodium Chloride () 1,000 mls @ 75 mls/hr IV .[id number] [facility] Last Admin: 04/20/17 01:57 Dose: 75 mls/hr Non-Formulary Medication (Insulin Lispro [Humalog]) 0 units SC UD [facility] Last Admin: 04/19/17 12:02 Dose: Not Given Ondansetron HCl (Zofran) 4 mg IV Q8H PRN PRN PRN Reason: Nausea Oxycodone HCl (Oxyir) 5 mg PO Q4H PRN PRN PRN Reason: Moderate Pain (pain scale 4-5) Sodium Chloride () 5 - 30 ml IV UD PRN PRN Reason: SALINE FLUSH Last Admin: 04/19/17 21:13 Dose: 10 ml Assessment/Plan The patient is a 81 year old F who was sent from PCPs office with bilateral lower extremity swelling found to have new onset A. fib on admission 1. New onset A. fib with RVR: Patient admitted to monitored bed managed initially with Cardizem seen in consultation by cardiology patient started on beta-blockers heart rate however remain uncontrolled amiodarone was added to her therapy prior to discharge. Patient was placed on systemic anticoagulation with Eliquis prescription. Plan to discharge patient home discontinued after patient developed significant hypotension. She later went into sinus pauses resulted in rapid response being called and the patient and patient being transferred to the intensive care unit. Heart rate of as of the morning of 04/20 patient antiarrhythmic medications resumed. 2. Bilateral lower extremity edema secondary to right-sided heart failure managed with Lasix echo obtained demonstrated RVSP of 37 mmHg with mild atrial regurgitation EF was estimated to be 60% on the echo obtained during her hospital stay 3. Diabetes mellitus type 1 on insulin pump with labile control 4. Hypertension-blood pressure controlled, home medications continued with dose adjustment as needed 5. DVT prophylaxis patient was on systemic anticoagulation Code Visit Inpatient E&M: 13705 Subs Hosp L3
[2017-04-20] MEDS: Amiodarone 200 MG Tablet PO (08:20)
[2017-04-20] MEDS: Aspirin 81 MG TAB.CHEW PO (08:20)
[2017-04-20 08:36] LABS: Bedside Glucose 251 mg/dL (70-110)
[2017-04-20] MEDS: Carvedilol 6.25 MG Tablet PO ×2 (08:50→22:30)
[2017-04-20] MEDS: APIXABAN 2.5 MG TABLET PO ×2 (10:27→22:30)
--- NOTE | 2017-04-20 10:31 | PCM.PN.CARD ---
Subjectve: Events of yesterday noted, telemetry strips noted which showed essentially asystole with a ventricular escape response. The patient had a rapid response yesterday and was stabilized on the floor and then brought to the ICU for medical management. The patient was in A. fib with slow ventricular response prior to that. She had had her Coreg increased, and was being loaded with p.o. amiodarone. Her heart rate improved and is now remained above 100 overnight with occasional episodes of bradycardia. No chest pain or anginal symptoms. Troponins negative. Recent stress test negative. LV function normal. Objective: Vital Signs Temp Pulse Resp BP Pulse Ox 97.9 F 101 H 15 88/56 L 97 04/20/17 08:00 04/20/17 10:00 04/20/17 10:00 04/20/17 10:00 04/20/17 10:00 Oxygen Flow Rate 2 Oxygen Delivery Method Room Air Weight: 122 lb 9.232 oz Body Mass Index (BMI) 20.3 Orthostatic Vital Signs Start: 04/20/17 05:54 Freq: q24h Status: Active Protocol: Activity Type Activity Date Activity User E-Sign Co-Sign Detail Recorded Client Recorded Date Recorded By Document 04/20/17 05:54 DMM [id number] 04/20/17 06:58 DMM 04/20/17 05:54 Orthostatic Vitals Standing -Blood Pressure (90/60-120/80) 146/100 H Sitting -Blood Pressure (90/60-120/80) 157/95 H Lying -Blood Pressure (90/60-120/80) 167/107 H Intake and Output for Last 24 Hours 04/18/17 04/19/17 04/20/17 23:59 23:59 23:59 Intake Total 1160 / 1160 910 / 910 448 / 448 Output Total 215 / 215 Balance 1160 / 1160 910 / 910 233 / 233 General: Awake, Alert, Oriented x 3 HEENT: PERRL, EOMI, Sclera Non Icteric Neck: Supple, Good ROM, No Lymph Node Enlargement Lungs: Clear to auscultation Cardiovascular: Irregular Rhythm, Normal S1, Normal S2, No Murmurs, No Rubs, No Gallops Vascular: No Carotid Bruits, Normal Femoral Pulses, Normal Radial Pulses, Normal Dorsalis Pedal Pulse, Normal Posterior Tibial Pulses Abdomen: Bowel Sounds Present, Soft, Non Tender, No HSM, No Organomegaly Extremities: No Cyanosis, No Clubbing, No edema Neurological: No Focal Motor or Sensory Deficit 04/19/17 16:05: WBC 6.2, RBC 3.63 L, Hgb 11.3 L, Hct 35.5 L, MCV 97.8, MCH 31.1, MCHC 31.8 L, RDW 14.7 H, RDW Differential 52.6 H, Plt Count 224, MPV 10.4, Immature Gran % (Auto) 0.200, Neut % (Auto) 61.8, Lymph % (Auto) 24.4, Sabine % (Auto) 11.2 H, Eos % (Auto) 2.1, Baso % (Auto) 0.3, Absolute Neuts (auto) 3.8, Total Counted Not Reportable 04/19/17 16:05: PT 15.5 H, INR 1.3 04/19/17 16:05: Sodium 138, Potassium 4.4, Chloride 104, Carbon Dioxide 25.0, Anion Gap 9, BUN 22 H, Creatinine 1.10 H, Est GFR (MDRD) Af Amer 61, Est GFR (MDRD) Non-Af 51 L, BUN/Creatinine Ratio 20.0, Glucose 231 H, Calcium 8.4 L, Magnesium 2.1, Total Bilirubin 0.30, Troponin I < 0.02 04/19/17 20:00: Troponin I < 0.02 04/19/17 23:57: Troponin I < 0.02 04/20/17 04:00: Troponin I < 0.02 Rhythm: EKG: ECHO: Stress Test: Cardiac Cath: PCI: CT Surgery: Holter monitor: EPS: PPM: CXR: Chest CT Scan: Assessment/Plan 1. Atrial fibrillation: The patient has new onset atrial fibrillation with a history of hypertension, diabetes, and no known coronary disease. Echocardiogram demonstrated mild global LV dysfunction with an EF of 50-55%, RVSP of 37 mmHg, mild mitral regurgitation. Stress test on this admission was negative for inducible ischemia. Given the patient's bradycardic episode yesterday it may be that her beta-yuni is too high, combined with amiodarone loading. Recommend reduction of amiodarone loading to 200 mg p.o. daily, and reducing her Coreg to 6.25 mg p.o. twice daily. If during the day today and this evening her heart rate does not go below 100, I would recommend that she undergo a WILLIAM guided DC cardioversion tomorrow. If however her heart rate comes into alignment, I would continue current dose of Coreg, slow amiodarone loading, with the plan for eventual DC cardioversion in 3 weeks time. Recommend continuing Eliquis. Continue baby aspirin for primary prophylaxis given her diabetes.. 2. Hyperlipidemia: Her LDL is 36 and her HDL is 95. Needed at this time. 3. Thank you very much for the opportunity to participate in the cardiac care of your patient. Patient may be transferred to PCU. Code Visit Inpatient E&M: 04340 Subs Hosp L2
--- NOTE | 2017-04-20 10:35 | PN.CARD_ITS ---
Subjectve: Events of yesterday noted, telemetry strips noted which showed essentially asystole with a ventricular escape response. The patient had a rapid response yesterday and was stabilized on the floor and then brought to the ICU for medical management. The patient was in A. fib with slow ventricular response prior to that. She had had her Coreg increased, and was being loaded with p.o. amiodarone. Her heart rate improved and is now remained above 100 overnight with occasional episodes of bradycardia. No chest pain or anginal symptoms. Troponins negative. Recent stress test negative. LV function normal. Objective: Vital Signs Temp Pulse Resp BP Pulse Ox 97.9 F 101 H 15 88/56 L 97 04/20/17 08:00 04/20/17 10:00 04/20/17 10:00 04/20/17 10:00 04/20/17 10:00 Oxygen Flow Rate 2 Oxygen Delivery Method Room Air Weight: 122 lb 9.232 oz Body Mass Index (BMI) 20.3 Orthostatic Vital Signs Start: 04/20/17 05:54 Freq: q24h Status: Active Protocol: Activity Type Activity Date Activity User E-Sign Co-Sign Detail Recorded Client Recorded Date Recorded By Document 04/20/17 05:54 DMM [id number] 04/20/17 06:58 DMM 04/20/17 05:54 Orthostatic Vitals Standing -Blood Pressure (90/60-120/80) 146/100 H Sitting -Blood Pressure (90/60-120/80) 157/95 H Lying -Blood Pressure (90/60-120/80) 167/107 H Intake and Output for Last 24 Hours 04/18/17 04/19/17 04/20/17 23:59 23:59 23:59 Intake Total 1160 / 1160 910 / 910 448 / 448 Output Total 215 / 215 Balance 1160 / 1160 910 / 910 233 / 233 General: Awake, Alert, Oriented x 3 HEENT: PERRL, EOMI, Sclera Non Icteric Neck: Supple, Good ROM, No Lymph Node Enlargement Lungs: Clear to auscultation Cardiovascular: Irregular Rhythm, Normal S1, Normal S2, No Murmurs, No Rubs, No Gallops Vascular: No Carotid Bruits, Normal Femoral Pulses, Normal Radial Pulses, Normal Dorsalis Pedal Pulse, Normal Posterior Tibial Pulses Abdomen: Bowel Sounds Present, Soft, Non Tender, No HSM, No Organomegaly Extremities: No Cyanosis, No Clubbing, No edema Neurological: No Focal Motor or Sensory Deficit 04/19/17 16:05: WBC 6.2, RBC 3.63 L, Hgb 11.3 L, Hct 35.5 L, MCV 97.8, MCH 31.1 , MCHC 31.8 L, RDW 14.7 H, RDW Differential 52.6 H, Plt Count 224, MPV 10.4, Immature Gran % (Auto) 0.200, Neut % (Auto) 61.8, Lymph % (Auto) 24.4, Atkinson % ( Auto) 11.2 H, Eos % (Auto) 2.1, Baso % (Auto) 0.3, Absolute Neuts (auto) 3.8, Total Counted Not Reportable 04/19/17 16:05: PT 15.5 H, INR 1.3 04/19/17 16:05: Sodium 138, Potassium 4.4, Chloride 104, Carbon Dioxide 25.0, Anion Gap 9, BUN 22 H, Creatinine 1.10 H, Est GFR (MDRD) Af Amer 61, Est GFR ( MDRD) Non-Af 51 L, BUN/Creatinine Ratio 20.0, Glucose 231 H, Calcium 8.4 L, Magnesium 2.1, Total Bilirubin 0.30, Troponin I < 0.02 04/19/17 20:00: Troponin I < 0.02 04/19/17 23:57: Troponin I < 0.02 04/20/17 04:00: Troponin I < 0.02 Rhythm: EKG: ECHO: Stress Test: Cardiac Cath: PCI: CT Surgery: Holter monitor: EPS: PPM: CXR: Chest CT Scan: Assessment/Plan 1. Atrial fibrillation: The patient has new onset atrial fibrillation with a history of hypertension, diabetes, and no known coronary disease. Echocardiogram demonstrated mild global LV dysfunction with an EF of 50-55%, RVSP of 37 mmHg, mild mitral regurgitation. Stress test on this admission was negative for inducible ischemia. Given the patient's bradycardic episode yesterday it may be that her beta- yuni is too high, combined with amiodarone loading. Recommend reduction of amiodarone loading to 200 mg p.o. daily, and reducing her Coreg to 6.25 mg p.o. twice daily. If during the day today and this evening her heart rate does not go below 100, I would recommend that she undergo a WILLIAM guided DC cardioversion tomorrow. If however her heart rate comes into alignment, I would continue current dose of Coreg, slow amiodarone loading, with the plan for eventual DC cardioversion in 3 weeks time. Recommend continuing Eliquis. Continue baby aspirin for primary prophylaxis given her diabetes.. 2. Hyperlipidemia: Her LDL is 36 and her HDL is 95. Needed at this time. 3. Thank you very much for the opportunity to participate in the cardiac care of your patient. Patient may be transferred to PCU. Code Visit Inpatient E&M: 95150 Subs Hosp L2
[2017-04-20 11:41] LABS: Bedside Glucose 267 mg/dL (70-110)
[2017-04-20 18:11] LABS: Bedside Glucose 284 mg/dL (70-110)
--- NOTE | 2017-04-20 22:36 | NURSING ---
Pt. giving self 3.5 units insulin per her own pump.
[2017-04-20] MEDS: 0.9% NaCl Peripheral Flush Adult/Peds IV (22:55)
[2017-04-20 23:45] LABS: Bedside Glucose 291 mg/dL (70-110)
[2017-04-21] VITALS (7 sets, daily range): BP systolic 105–133; BP diastolic 62–79; PULSE 79–116; RESP 16; TEMP 36.6; O2SAT 93–97
[2017-04-21 05:43] LABS: Hematocrit 33.4 % (37-47); Mean Corp Hgb Conc 32.9 g/gl (32-36); Mean Corpuscular Hgb 31.9 pg (27.0-32.0); Mean Corpuscular Volume 96.8 fL (81-99); Mean Platelet Vol. 10.7 fl (6.2-12.0); Platelet Count 255 K/mm3 (150-450); RBC Distribution Width CV 14.8 % (11.6-14.6); RBC Distribution Width SD 49.6 fl (35.1-43.9); Red Blood Count 3.45 M/mm3 (4.2-5.4); White Blood Count 5.2 K/mm3 (4.4-11.0)
[2017-04-21 05:44] LABS: Scan Indicated on CBC? Y/N NO
[2017-04-21] MEDS: 0.9% Normal Saline 1,000 ML 75 ML IV (06:06)
[2017-04-21 06:14] LABS: Anion Gap 8 (5-15); BUN 24 mg/dL (7-18); BUN/Creat Ratio 29.7 RATIO (10-20); Calcium,Total 8.2 mg/dL (8.5-10.1); Chloride 107 mmol/L (98-107); Creatinine, Serum 0.81 mg/dL (0.55-1.02); EST Glomerular Filtration Rate 72 mL/min (>60); Est Glom Filt Rate - Afr Amer 88 mL/min (>60); Estimated Creatinine Clearance 45.82 ml/min; Glucose 177 mg/dL (70-110); Potassium 4.2 mmol/L (3.5-5.1); Sodium Level 139 mmol/L (136-145)
[2017-04-21] MEDS: 0.9% NaCl Peripheral Flush Adult/Peds IV (06:37)
[2017-04-21 07:16] LABS: Bedside Glucose 191 mg/dL (70-110)
--- NOTE | 2017-04-21 07:45 | NURSING ---
Dr. Hong called PCU and this nurse updated him on pt. condition. Pt. stable, still in Afib, HR low 100s most of night, asymptomatic. No pauses through night, last BP 124/73.
--- NOTE | 2017-04-21 08:48 | PCM.DC ---
- Discharge Diagnoses Current Active Problems: Current Active and Chronic Problems (Last Reviewed 03/17/17 @ 14:24 by Camille Escalante) Valvular heart disease (Chronic) Right-sided heart failure (Chronic) You will use the following diet at home:: No restrictions Discharge Activity: Return to Normal Activity Allergies/Adverse Reactions: Allergies No Known Allergies Allergy (Verified 03/17/17 14:15) Medications to take at Discharge insulin lispro 100 unit/mL subcutaneous solution See Label Instructions SC QDAY 03/17/17 Apixaban [Eliquis] 2.5 mg PO BID #60 tab 04/17/17 Amiodarone HCl [Cordarone] 200 mg PO UD #100 tab 04/19/17 Aspirin [Aspirin, Baby] 81 mg PO DAILY@0800 #60 tab.chew 04/19/17 Carvedilol [Coreg (Beta Zoraida)] 6.25 mg PO BID #60 tab 04/21/17 The following prescriptions were given: Amiodarone HCl [Cordarone] 200 mg PO UD #100 tab Apixaban [Eliquis] 2.5 mg PO BID #60 tab Aspirin [Aspirin, Baby] 81 mg PO DAILY@0800 #60 tab.chew Carvedilol [Coreg (Beta Zoraida)] 6.25 mg PO BID #60 tab Primary Care Physician: Care Physician,No Primary [Primary Care Provider] - Please Follow Up With: Ge Hong MD When: in 2-4 weeks Proposed Discharge Date: 04/21/17
--- NOTE | 2017-04-21 08:49 | PCM.DC.SUM ---
Discharge Date and Diagnosis Date of Admission: 04/15/17 Date of Discharge: 04/21/17 - Primary Discharge Diagnosis New Onset atrial fibrillation - Secondary Discharge Diagnosis Chronic Problems (Last Reviewed 03/17/17 @ 14:24 by Camille Escalante) Valvular heart disease (Chronic) Right-sided heart failure (Chronic) Hyperlipidemia due to type 1 diabetes mellitus (Chronic) Uncontrolled type 1 diabetes mellitus with complication, without long-term current use of insulin (Chronic) Hospital Course and Treatment Imaging Results: Clinical Impression(s) from Imaging Studies Chest X-Ray 04/15/17 12:19 IMPRESSION: Small bilateral pleural effusions with underlying infiltration and/or atelectasis. Electronically Signed: Isra Claros MD at 12:49 EST Tel [phone], Service support , Chest X-Ray 04/19/17 16:10 IMPRESSION: Findings representing worsening interstitial edema/congestive failure Electronically Signed: Isael Solis MD at 16:32 EST , Service support , Operations: None Summary of Care Provided: The patient is a 81 year old F who was sent from PCPs office with bilateral lower extremity swelling found to have new onset A. fib on admission 1. New onset A. fib with RVR: Patient admitted to monitored bed managed initially with Cardizem seen in consultation by cardiology patient started on beta-blockers heart rate however remain uncontrolled amiodarone was added to her therapy prior to discharge. Patient was placed on systemic anticoagulation with Eliquis prescription. Plan to discharge patient home discontinued after patient developed significant hypotension. She later went into sinus pauses resulted in rapid response being called and the patient and patient being transferred to the intensive care unit. Heart rate of as of the morning of 04/20/17 patient antiarrhythmic medications resumed. Patient was discharged home on amiodarone as well as a decreased dose of Coreg with plans for patient to come back for WILLIAM and cardioversion 2. Bilateral lower extremity edema secondary to right-sided heart failure managed with Lasix echo obtained demonstrated RVSP of 37 mmHg with mild atrial regurgitation EF was estimated to be 60% on the echo obtained during her hospital stay 3. Diabetes mellitus type 1 on insulin pump with labile control 4. Hypertension-had hypotensive episodes resuscitated with IV fluids the enalapril was discontinued since patient had been placed on Coreg 5. DVT prophylaxis patient was on systemic anticoagulation Discharge Diet: 1800 Calorie Control Diet Discharge Activity: Return to Normal Activity Home Medications: Medications to take at Discharge insulin lispro 100 unit/mL subcutaneous solution See Label Instructions SC QDAY 03/17/17 Apixaban [Eliquis] 2.5 mg PO BID #60 tab 04/17/17 Amiodarone HCl [Cordarone] 200 mg PO UD #100 tab 04/19/17 Aspirin [Aspirin, Baby] 81 mg PO DAILY@0800 #60 tab.chew 04/19/17 Carvedilol [Coreg (Beta Zoraida)] 6.25 mg PO BID #60 tab 04/21/17 Following Prescrptions Were Given to Patient: Amiodarone HCl [Cordarone] 200 mg PO UD #100 tab Apixaban [Eliquis] 2.5 mg PO BID #60 tab Aspirin [Aspirin, Baby] 81 mg PO DAILY@0800 #60 tab.chew Carvedilol [Coreg (Beta Zoraida)] 6.25 mg PO BID #60 tab Primary Care Physician: Care Physician,No Primary [Primary Care Provider] - Please Follow Up With: Ge Hong MD When: in 2-4 weeks Disposition: Home Minutes spent on discharge:: 35 Patient Condition:: Stable Meaningful Use Info Meaningful Use Diagnoses (Choose all that apply): None applicable Code Visit Inpatient E&M: 36770 Disch Hosp
[2017-04-21] MEDS: APIXABAN 2.5 MG TABLET PO (09:17)
[2017-04-21] MEDS: Carvedilol 6.25 MG Tablet PO (09:17)
[2017-04-21] MEDS: Aspirin 81 MG TAB.CHEW PO (09:17)
--- NOTE | 2017-04-21 09:52 | PCM.PN.CARD ---
Subjectve: Patient did well overnight, still in atrial fibrillation but heart rate is better controlled. Patient did have an episode of hypotension yesterday and her lisinopril was adjusted downwards. Amiodarone loading in progress at 200 mg p.o. daily.. Objective: Vital Signs Temp Pulse Resp BP Pulse Ox 97.8 F 97 16 133/79 H 93 04/21/17 04:30 04/21/17 07:16 04/21/17 04:30 04/21/17 05:54 04/21/17 07:20 Oxygen Flow Rate 2 Oxygen Delivery Method Room Air Weight: 119 lb 11.376 oz Body Mass Index (BMI) 20.3 Orthostatic Vital Signs Start: 04/20/17 05:54 Freq: q24h Status: Active Protocol: Activity Type Activity Date Activity User E-Sign Co-Sign Detail Recorded Client Recorded Date Recorded By Document 04/21/17 05:54 PAL [id number] 04/21/17 06:16 PAL 04/21/17 05:54 Orthostatic Vitals Standing -Blood Pressure (90/60-120/80) 124/73 H -Extremity Use Right Arm -Pulse Rate (60-100) 87 Sitting -Blood Pressure (90/60-120/80) 115/77 -Extremity Use Right Arm -Pulse Rate (60-100) 114 H Lying -Blood Pressure (90/60-120/80) 133/79 H -Extremity Use Right Arm -Pulse Rate (60-100) 116 H Intake and Output for Last 24 Hours 04/19/17 04/20/17 04/21/17 23:59 23:59 23:59 Intake Total 910 / 910 2208 / 2208 531 / 531 Output Total 415 / 415 300 / 300 Balance 910 / 910 1793 / 1793 231 / 231 General: Awake, Alert, Oriented x 3 HEENT: PERRL, EOMI, Sclera Non Icteric Neck: Supple, Good ROM, No Lymph Node Enlargement Lungs: Clear to auscultation Cardiovascular: Irregular Rhythm, Normal S1, Normal S2, No Murmurs, No Rubs, No Gallops Vascular: No Carotid Bruits, Normal Femoral Pulses, Normal Radial Pulses, Normal Dorsalis Pedal Pulse, Normal Posterior Tibial Pulses Abdomen: Bowel Sounds Present, Soft, Non Tender, No HSM, No Organomegaly Extremities: No Cyanosis, No Clubbing, No edema Neurological: No Focal Motor or Sensory Deficit 04/21/17 05:25: WBC 5.2, RBC 3.45 L, Hgb 11.0 L, Hct 33.4 L, MCV 96.8, MCH 31.9, MCHC 32.9, RDW 14.8 H, RDW Differential 49.6 H, Plt Count 255, MPV 10.7 04/21/17 05:25: Sodium 139, Potassium 4.2, Chloride 107, Carbon Dioxide 24.0, Anion Gap 8, BUN 24 H, Creatinine 0.81, Est GFR (MDRD) Af Amer 88, Est GFR (MDRD) Non-Af 72, BUN/Creatinine Ratio 29.7 H, Glucose 177 H, Calcium 8.2 L, Magnesium 2.0 Rhythm: EKG: ECHO: Stress Test: Cardiac Cath: PCI: CT Surgery: Holter monitor: EPS: PPM: CXR: Chest CT Scan: Assessment/Plan 1. Atrial fibrillation: The patient has new onset atrial fibrillation with a history of hypertension, diabetes, and no known coronary disease. Echocardiogram demonstrated mild global LV dysfunction with an EF of 50-55%, RVSP of 37 mmHg, mild mitral regurgitation. Stress test on this admission was negative for inducible ischemia. Given the patient's bradycardic episode yesterday it may be that her beta-yuni is too high, combined with amiodarone loading. Recommend reduction of amiodarone loading to 200 mg p.o. daily, and reducing her Coreg to 6.25 mg p.o. twice daily. Patient's heart rate and blood pressure of stabilize, and I would prefer to proceed with DC cardioversion in several weeks time after she is adequately loaded with amiodarone. I believe it is reasonable to discharge the patient on amiodarone 20 mg a day, Coreg 6.25 mg twice daily, reduce her lisinopril to 2.5 mg a day, and continue Eliquis therapy. She will be arranged for DC cardioversion in 3 weeks time. Patient is completely asymptomatic from an atrial fibrillation standpoint and is unaware of her atrial fibrillation. Recommend continuing Eliquis. Continue baby aspirin for primary prophylaxis given her diabetes.. 2. Hyperlipidemia: Her LDL is 36 and her HDL is 95. Needed at this time. 3. Thank you very much for the opportunity to participate in the cardiac care of your patient. Patient may be discharged home. Code Visit Inpatient E&M: 92715 Subs Hosp L2
--- NOTE | 2017-04-21 09:56 | PN.CARD_ITS ---
Subjectve: Patient did well overnight, still in atrial fibrillation but heart rate is better controlled. Patient did have an episode of hypotension yesterday and her lisinopril was adjusted downwards. Amiodarone loading in progress at 200 mg p.o. daily.. Objective: Vital Signs Temp Pulse Resp BP Pulse Ox 97.8 F 97 16 133/79 H 93 04/21/17 04:30 04/21/17 07:16 04/21/17 04:30 04/21/17 05:54 04/21/17 07:20 Oxygen Flow Rate 2 Oxygen Delivery Method Room Air Weight: 119 lb 11.376 oz Body Mass Index (BMI) 20.3 Orthostatic Vital Signs Start: 04/20/17 05:54 Freq: q24h Status: Active Protocol: Activity Type Activity Date Activity User E-Sign Co-Sign Detail Recorded Client Recorded Date Recorded By Document 04/21/17 05:54 PAL [id number] 04/21/17 06:16 PAL 04/21/17 05:54 Orthostatic Vitals Standing -Blood Pressure (90/60-120/80) 124/73 H -Extremity Use Right Arm -Pulse Rate (60-100) 87 Sitting -Blood Pressure (90/60-120/80) 115/77 -Extremity Use Right Arm -Pulse Rate (60-100) 114 H Lying -Blood Pressure (90/60-120/80) 133/79 H -Extremity Use Right Arm -Pulse Rate (60-100) 116 H Intake and Output for Last 24 Hours 04/19/17 04/20/17 04/21/17 23:59 23:59 23:59 Intake Total 910 / 910 2208 / 2208 531 / 531 Output Total 415 / 415 300 / 300 Balance 910 / 910 1793 / 1793 231 / 231 General: Awake, Alert, Oriented x 3 HEENT: PERRL, EOMI, Sclera Non Icteric Neck: Supple, Good ROM, No Lymph Node Enlargement Lungs: Clear to auscultation Cardiovascular: Irregular Rhythm, Normal S1, Normal S2, No Murmurs, No Rubs, No Gallops Vascular: No Carotid Bruits, Normal Femoral Pulses, Normal Radial Pulses, Normal Dorsalis Pedal Pulse, Normal Posterior Tibial Pulses Abdomen: Bowel Sounds Present, Soft, Non Tender, No HSM, No Organomegaly Extremities: No Cyanosis, No Clubbing, No edema Neurological: No Focal Motor or Sensory Deficit 04/21/17 05:25: WBC 5.2, RBC 3.45 L, Hgb 11.0 L, Hct 33.4 L, MCV 96.8, MCH 31.9 , MCHC 32.9, RDW 14.8 H, RDW Differential 49.6 H, Plt Count 255, MPV 10.7 04/21/17 05:25: Sodium 139, Potassium 4.2, Chloride 107, Carbon Dioxide 24.0, Anion Gap 8, BUN 24 H, Creatinine 0.81, Est GFR (MDRD) Af Amer 88, Est GFR (MDRD ) Non-Af 72, BUN/Creatinine Ratio 29.7 H, Glucose 177 H, Calcium 8.2 L, Magnesium 2.0 Rhythm: EKG: ECHO: Stress Test: Cardiac Cath: PCI: CT Surgery: Holter monitor: EPS: PPM: CXR: Chest CT Scan: Assessment/Plan 1. Atrial fibrillation: The patient has new onset atrial fibrillation with a history of hypertension, diabetes, and no known coronary disease. Echocardiogram demonstrated mild global LV dysfunction with an EF of 50-55%, RVSP of 37 mmHg, mild mitral regurgitation. Stress test on this admission was negative for inducible ischemia. Given the patient's bradycardic episode yesterday it may be that her beta- yuni is too high, combined with amiodarone loading. Recommend reduction of amiodarone loading to 200 mg p.o. daily, and reducing her Coreg to 6.25 mg p.o. twice daily. Patient's heart rate and blood pressure of stabilize, and I would prefer to proceed with DC cardioversion in several weeks time after she is adequately loaded with amiodarone. I believe it is reasonable to discharge the patient on amiodarone 20 mg a day, Coreg 6.25 mg twice daily, reduce her lisinopril to 2.5 mg a day, and continue Eliquis therapy. She will be arranged for DC cardioversion in 3 weeks time. Patient is completely asymptomatic from an atrial fibrillation standpoint and is unaware of her atrial fibrillation. Recommend continuing Eliquis. Continue baby aspirin for primary prophylaxis given her diabetes.. 2. Hyperlipidemia: Her LDL is 36 and her HDL is 95. Needed at this time. 3. Thank you very much for the opportunity to participate in the cardiac care of your patient. Patient may be discharged home. Code Visit Inpatient E&M: 90378 Subs Hosp L2
--- NOTE | 2017-04-21 10:45 | CASEMGMT ---
DAWOOD spoke with patient's daughter, Veronica, per her request. She expressed some concern with patient going home. Vreonica said patient normally does fine, but she is not sure how she will do once home. Patient has an 87 year old . Patient's takes care of himself and gets around well. She said patient may do just fine at home and she knows she will refuse any help. DAWOOD asked who her primary care doctor was and she said she does not have one. Veronica asked if she could have SW's card so she could call if patient gets home and needs something. DAWOOD gave her SW's card. DAWOOD also took a primary care doctor list to patient. Loida LE MSW
== END 2017-04-21 11:58 | disposition home or self-care (01) | DRG 310 ==
LOC: ED 14:05 → PCU 14:38 → ICU 04-20 08:29 → PCU 04-20 08:29 → ICU 04-20 13:34 → PCU 04-21 09:01 → ICU 04-21 09:02 → PCU 04-21 09:02
PROVIDERS: Internal Medicine Cardiovascular Disease; Admitting Provider Internal Medicine; Emergency Provider Emergency Medicine; Visit Provider Internal Medicine
DX: I48.91 Unspecified atrial fibrillation (principal); E10.65 Type 1 diabetes mellitus with hyperglycemia; I11.0 Hypertensive heart disease with heart failure; I50.810 Right heart failure, unspecified; E78.5 Hyperlipidemia, unspecified; Z79.4 Long term (current) use of insulin; Z96.41 Presence of insulin pump (external) (internal); Z87.891 Personal history of nicotine dependence
CPT/HCPCS: 36415; 71045; 78452; 80048; 80053; 80061; 80076; 82962; 83036; 83735; 83880; 84443; 84484; 85025; 85027; 85610; 87641; 93005; 93017; 93306; 97802; 99251; 99285; A9500; J7030; J7040; J7050; A4216; G0463; J2785

== ENCOUNTER 2017-04-21 15:23 | Observation (INO) | payer MEDICARE, SELFPAY ==
[2017-04-21] VITALS (8 sets, daily range): BP systolic 125–146; BP diastolic 77–93; PULSE 87–119; RESP 16–20; TEMP 36.4–36.8; O2SAT 95–97; BMI 21.9; BMI 22.3
--- NOTE | 2017-04-21 15:39 | RAD_ITS ---
STUDY: X-RAY CHEST REASON FOR EXAM: Female, 81 years old. Tachycardia. TECHNIQUE: Single AP portable view of the chest. COMPARISON: Comparison is made with prior study dated April 19, 2017. FINDINGS: EKG electrodes are seen. Small bilateral pleural effusions with bibasilar atelectasis and/or infiltration worse on the left side. The vascular congestion has improved. Normal size heart. Normal mediastinum and jarrell. Normal visualized pulmonary arteries. There is atherosclerotic calcification of the aortic arch with tortuosity. Normal visualized thoracic spine. Normal visualized ribs, clavicles, and shoulders. There is no demonstrated abnormality of the visualized soft tissue structures of the upper abdomen. RAD/Chest 1 View (Portable) IMPRESSION: Stable bibasilar pleural-parenchymal changes. Electronically Signed: Isra Claros MD at 15:58 EST Tel [phone], Service support ,
--- NOTE | 2017-04-21 15:39 | EKG12_ITS ---
Test Reason : EDEMA Blood Pressure : / mmHG Vent. Rate : 115 BPM Atrial Rate : 178 BPM P-R Int : 000 ms QRS Dur : 080 ms QT Int : 316 ms P-R-T Axes : 000 033 -69 degrees QTc Int : 437 ms Atrial fibrillation Nonspecific ST and T wave abnormality Abnormal ECG Confirmed by EDWIN AGUILERA, BERTHA ([id number]), market editor PAMELA HAYES ([id number]) on 04/26/2017 4:09:13 PM Referred By: EMA HERNANDEZ Confirmed By:BERTHA PINEDA MD
--- NOTE | 2017-04-21 15:40 | VDLE_ITS ---
Reason For Study: Swelling BLE RIGHT LEFT GSV is normal. GSV is normal. CFV is compressible, spontaneous, phasic, CFV is compressible, spontaneous, phasic, competent and demonstrates normal competent, and demonstrates normal augmentation. augmentation. FV is compressible, spontaneous, phasic, FV is compressible, spontaneous, phasic, competent and demonstrates normal competent and demonstrates normal augmentation. augmentation. POP V is compressible, spontaneous, phasic, POP V is compressible, spontaneous, phasic, competent and demonstrates normal competent and demonstrates normal augmentation. augmentation. T/P Trunk is compressible. T/P Trunk is compressible. PTV is compressible. LT PerV is compressible. RT PerV is compressible. Lt PTV is dilated and non compressible Rt SoleusV is dilated and partially (short segment) consistent with acute DVT. compressible consistent with acute DVT. Procedure Exam performed portable in ED. A preliminary report was called and/or faxed to Dr. Gray. Interpretation Summary Acute deep vein thrombosis is noted in the right soleus vein. The remainder of the right lower extremity deep venous system is patent and compressible. Acute deep vein thrombosis is noted in the left posterior tibial vein. The remainder of the left lower extremity deep venous system is patent and compressible. The proximal deep venous system is competent bilaterally. Great saphenous veins are patent and compressible bilaterally. Ordering Physician: Luz Gray Performed By: Prisca Cardenas, RDCS, RVT
--- NOTE | 2017-04-21 15:49 | NURSING ---
NO LW OR POA
[2017-04-21 16:16] LABS: AST(SGOT) 24 U/L (15-37); Alanine Aminotransfer ALT/SGPT 49 U/L (13-56); Alkaline Phosphatase 191 U/L (45-117); Bilirubin, Direct 0.14 mg/dL (0.00-0.30); Globulin 3.6 g/dL (2.2-4.2); Protein, Total 6.6 g/dL (6.4-8.2)
--- NOTE | 2017-04-21 16:53 | NURSING ---
DR JIMENEZ IN ER
--- NOTE | 2017-04-21 17:08 | HP.PCM_ITS ---
Problem List (1) DVT (deep venous thrombosis) Status: Acute Qualifiers: DVT location: lower extremity Chronicity: acute Laterality: bilateral (2) New onset a-fib Status: Acute (3) Hyperlipidemia due to type 1 diabetes mellitus Status: Chronic Comment: Pt had some issues with statin use in past and has since refused any further trial of statin drug. Eats healthy. HDL 130. (4) Right-sided heart failure Status: Chronic (5) Uncontrolled type 1 diabetes mellitus with complication, without long-term current use of insulin Status: Chronic Comment: Pt continues to keep bedtime BG high to prevent nocturnal hypoglycemia although this does not seem to be the best approach. I have ask her to change night time basal rates but she is not interested in doing. A1c high at 10.5 due to patient fear of low BG. No checking enough for optimal control. Enc 4 BG daily. (6) Valvular heart disease Status: Chronic (7) A. fib with RVR, new onset Status: Inactive History of Present Illness Date of Admission: 04/21/17 Chief Complaint: Bilateral lower extremity swelling The patient is a 81 year old F recently discharged from the hospital after 7 days of hospitalization for A. fib with RVR. Patient did notice swelling involving both lower extremities are worse after being discharged home. She also did notice some discomfort as well presented back to the emergency department and emergency venous duplex obtained in the ED demonstrated presence of bilateral DVTs. Patient had been discharged home on Eliquis 2.5 mg twice daily dose was increased to 5 mg twice daily and patient admitted to a monitored bed for subsequent management Past Medical History Past Medical History (Chronic Problems): Chronic Problems (Last Reviewed 03/17/17 @ 14:24 by Camille Escalante) Valvular heart disease (Chronic) Right-sided heart failure (Chronic) Hyperlipidemia due to type 1 diabetes mellitus (Chronic) Pt had some issues with statin use in past and has since refused any further trial of statin drug. Eats healthy. HDL 130. Uncontrolled type 1 diabetes mellitus with complication, without long-term current use of insulin (Chronic) Pt continues to keep bedtime BG high to prevent nocturnal hypoglycemia although this does not seem to be the best approach. I have ask her to change night time basal rates but she is not interested in doing. A1c high at 10.5 due to patient fear of low BG. No checking enough for optimal control. Enc 4 BG daily. Allergies No Known Allergies Allergy (Verified 03/17/17 14:15) Home Medications: Ambulatory Orders Medication Instructions Recorded insulin lispro 100 unit/mL See Label Instructions SC QDAY 03/17/17 subcutaneous solution Apixaban [Eliquis] 2.5 mg PO BID #60 tab 04/17/17 Amiodarone HCl [Cordarone] 200 mg PO UD #100 tab 04/19/17 Aspirin [Aspirin, Baby] 81 mg PO DAILY@0800 #60 tab.chew 04/19/17 Carvedilol [Coreg (Beta Zoraida)] 6.25 mg PO BID #60 tab 04/21/17 Smoking Status: Never smoker - *Family History Sibling History Items: Heart Disease - Had some cardiac surgery. Review of Systems Constitutional: Reports: Weakness, Fatigue. Denies: Anorexia, Chills, Weight Change HEENT: Denies: Head Aches, Sinus Congestion, Sinus Drainage Cardiovascular: Reports: Edema. Denies: Chest Pain, Orthopnea Respiratory: Denies: Cough, Shortness of breath at rest, Shortness of breath upon exertion, Sputum production Gastrointestinal: Denies: Abdominal Pain, Hematemesis, Hematochezia, Nausea, Melena, Vomiting Genitourinary: Denies: Dysuria, Frequency, Hematuria, Urgency Musculoskeletal: Denies: Joint Pain, Joint Tenderness Skin: Denies: Rash Neurological: Denies: Focal weakness, Numbness, Tingling Psychiatric: Denies: Homicidal Ideations, Suicidal Ideations Hematologic/ Lymphatic: Denies: Easy Bruising, Easy Bleeding VTE Information - Inpt Only VTE Present on Admission: Yes Patient Problems: Active and Suspected Problems (Last Reviewed 03/17/17 @ 14:24 by Camille Escalante ) DVT (deep venous thrombosis) (Acute) Objective: GENERAL: Flat affect HEENT: Clear conjunctiva, NECK; supple, normal thyroid, CHEST: Clear to auscultation bilaterally, HEART: Irregular S1 S2, tachycardic ABDOMEN: soft, non-tender, normoactive bowel sounds, RECTAL: deferred EXTREMITIES: Bilateral pedal edema BUSINESS PLANNING MANAGER: Awake no lateralizing signs. SKIN: No Rash - Physical Exam Vital Signs Temp Pulse Resp BP Pulse Ox 97.5 F L 119 H 20 H 146/86 H 97 04/21/17 15:25 04/21/17 15:32 04/21/17 15:32 04/21/17 15:32 04/21/17 15:32 Oxygen Delivery Method Room Air Weight: 56.245 kg Body Mass Index (BMI) 21.9 Laboratory Tests Past 24 Hrs 04/21/17 04/21/17 15:47 15:47 Total Bilirubin 0.30 Direct Bilirubin 0.14 AST 24 ALT 49 Alkaline Phosphatase 191 H Troponin I < 0.02 B-Natriuretic Peptide Pending Total Protein 6.6 Albumin 3.0 L Globulin 3.6 Assessment/Plan Active and Suspected Problems (Last Reviewed 03/17/17 @ 14:24 by Camille Escalante ) DVT (deep venous thrombosis) (Acute) Patient is an 81-year-old female presenting with bilateral lower extremity swelling found to have bilateral DVTs 1. Bilateral lower extremity DVTs patient has been admitted to monitored bed had previously been discharged home on Eliquis for his A. fib dose adjusted for DVT treatment 2. Paroxysmal A. fib patient is on beta blockers as well as amiodarone did continue with the discharge dose 3. Diabetes mellitus type 1 patient is on insulin drip did continue 4. Hypertension patient blood pressure was labile during her admission. Was on enalapril discontinued subsequently placed on Coreg monitoring closely 5. Physical deconditioning requested for PT/OT eval and treatment and bilingual social worker to assist with discharge planning possibly home with [facility] Code Visit OBSV E&M: 18922 Initial observation care L3
--- NOTE | 2017-04-21 17:11 | NURSING ---
PCU OBS RACHELE DVTS, AFIB KITTOE
--- NOTE | 2017-04-21 17:23 | ED.DCSUM_ITS ---
- ER Visit Summary Date of Service: 04/21/17 Chief Complaint: [Leg swelling] History of Present Illness: The patient is a 81 F [presents to the emergency department with swelling in her legs that has been ongoing for at least for 5 days but seems to be worsening today. Patient was just discharged from this hospital today. Patient was admitted initially for new onset A. fib RVR which was believed to be the cause of her leg swelling. Patient had an echo that showed some right-sided heart failure. During her stay patient had an episode of hypotension it was thought to be related to the beta-yuni that she was on and she spent a short time in the ICU. Patient denies any chest pain or shortness of breath. Patient denies any fever. Patient denies recent travel or surgery.] Physical Examination: [HEENT-PERRLA, EOMI. Cranial nerves II through XII grossly intact. TMs clear. Mucous membranes moist. No adenopathy. Cardiovascular-regular rate and rhythm without murmur or ectopy Lungs-patient has good aeration and is in no respiratory distress. Patient has some rales in both bases. There is no accessory muscle use or retractions. Abdomen-normoactive bowel sounds, soft, nontender, no rebound or rigidity, no peritoneal signs. Extremities-intact ?4, normal range of motion, normal pulses, atraumatic]. Patient has +2 edema both lower extremities is symmetric that extends to the upper legs and lower abdomen. Test Results: [Patient had basic labs CBC and basic metabolic profile performed earlier this morning prior to discharge which were unremarkable. EKG obtained on arrival here today showed A. fib with a rate of 115 bpm with some nonspecific ST changes. Troponin was less than 0.02. Chest x-ray showed bilateral effusions and stable exam. Venous Dopplers of both lower extremities showed bilateral below the knee DVTs] Emergency Department Course and Treatment: [Patient currently on Eliquis. I had patient evaluated by Dr. Carlos Gutierrez who took care of the patient while admitted]. Patient will be admitted for some gentle diuresis and continued anticoagulation. Treatment Plan: [] Disposition: [Admit] Impression: [Bilateral lower extremity DVTs Bilateral lower extremity edema Generalized weakness A. fib-RVR] This note was generated with [employer] dictation software. It may contain incorrect words, spelling, and punctuation that were not noted in review of the chart prior to signing ED Disposition - Plan for ED Patient: Chief Complaint: Edema
[2017-04-21 17:42] LABS: BNP,B-Type NATRIURETIC PEPTIDE 183.4 pg/mL (0-100)
[2017-04-21] MEDS: Furosemide 20 MG/2 ML VIAL IV ×2 (18:35→21:20)
[2017-04-21 18:46] LABS: Bedside Glucose 158 mg/dL (70-110)
[2017-04-21] MEDS: 0.9% NaCl Peripheral Flush Adult/Peds IV ×2 (18:53→21:20)
--- NOTE | 2017-04-21 19:27 | NURSING ---
Pt and family are refusing lisa insertion. Pt voids with no complications. Will monitor accurate I/O with bedside commode.
[2017-04-21] MEDS: APIXABAN 5 MG TABLET PO (21:19)
[2017-04-21] MEDS: Amiodarone 200 MG Tablet 400 MG PO (21:19)
[2017-04-21] MEDS: Carvedilol 6.25 MG Tablet PO (21:19)
[2017-04-21 21:21] LABS: Bedside Glucose 214 mg/dL (70-110)
[2017-04-22 00:20] VITALS: BP 110/79; PULSE 127; RESP 16; TEMP 36.9; O2SAT 96
[2017-04-22 03:10] VITALS: PULSE 87
[2017-04-22 05:40] VITALS: BP 109/76; PULSE 88; RESP 16; TEMP 36.7; O2SAT 96
[2017-04-22 05:44] LABS: Hematocrit 34.1 % (37-47); Hemoglobin 11.1 g/dl (12.0-15.0); Mean Corp Hgb Conc 32.6 g/gl (32-36); Mean Corpuscular Hgb 31.4 pg (27.0-32.0); Mean Corpuscular Volume 96.6 fL (81-99); Mean Platelet Vol. 10.6 fl (6.2-12.0); Platelet Count 259 K/mm3 (150-450); RBC Distribution Width CV 14.4 % (11.6-14.6); RBC Distribution Width SD 48.2 fl (35.1-43.9); Red Blood Count 3.53 M/mm3 (4.2-5.4); White Blood Count 5.7 K/mm3 (4.4-11.0)
[2017-04-22] MEDS: 0.9% NaCl Peripheral Flush Adult/Peds IV (05:47)
[2017-04-22] MEDS: Furosemide 20 MG/2 ML VIAL IV (05:48)
[2017-04-22 05:52] LABS: Scan Indicated on CBC? Y/N NO
[2017-04-22 06:03] LABS: BUN 19 mg/dL (7-18); EST Glomerular Filtration Rate 73 mL/min (>60); Glucose 150 mg/dL (70-110)
[2017-04-22 06:04] LABS: Anion Gap 8 (5-15); BUN/Creat Ratio 23.8 RATIO (10-20); Calcium,Total 8.4 mg/dL (8.5-10.1); Chloride 104 mmol/L (98-107); Est Glom Filt Rate - Afr Amer 89 mL/min (>60); Potassium 4.1 mmol/L (3.5-5.1); Sodium Level 140 mmol/L (136-145)
[2017-04-22 07:11] VITALS: PULSE 100
[2017-04-22 07:15] LABS: Bedside Glucose 185 mg/dL (70-110)
[2017-04-22] MEDS: Amiodarone 200 MG Tablet 400 MG PO (09:34)
[2017-04-22] MEDS: APIXABAN 5 MG TABLET PO (09:35)
[2017-04-22] MEDS: Carvedilol 6.25 MG Tablet PO (09:35)
--- NOTE | 2017-04-22 10:18 | PCM.DC ---
- Discharge Diagnoses Current Active Problems: Current Active and Chronic Problems (Last Reviewed 03/17/17 @ 14:24 by Camille Escalante) DVT (deep venous thrombosis) (Acute) Allergies/Adverse Reactions: Allergies No Known Allergies Allergy (Verified 03/17/17 14:15) Medications to take at Discharge insulin lispro 100 unit/mL subcutaneous solution See Label Instructions SC QDAY 03/17/17 Amiodarone HCl [Cordarone] 200 mg PO UD #100 tab 04/19/17 Aspirin [Aspirin, Baby] 81 mg PO DAILY@0800 04/21/17 Carvedilol [Coreg (Beta Zoraida)] 6.25 mg PO BID 04/21/17 Apixaban [Eliquis] 2.5 mg PO BID #60 tab 04/22/17 Furosemide [Lasix] 20 mg PO DAILY #30 tab 04/22/17 The following prescriptions were given: Apixaban [Eliquis] 2.5 mg PO BID #60 tab Furosemide [Lasix] 20 mg PO DAILY #30 tab Primary Care Physician: Care Physician,No Primary [Primary Care Provider] - Proposed Discharge Date: 04/22/17
--- NOTE | 2017-04-22 10:27 | PCM.DC.SUM ---
Discharge Date and Diagnosis - Problem List Patient Problems: Active and Suspected Problems (Last Reviewed 03/17/17 @ 14:24 by Camille Escalante) DVT (deep venous thrombosis) (Acute) Date of Admission: 04/21/17 Date of Discharge: 04/22/17 - Primary Discharge Diagnosis Active and Suspected Problems (Last Reviewed 03/17/17 @ 14:24 by Camille Escalante) DVT (deep venous thrombosis) (Acute) - Secondary Discharge Diagnosis Chronic Problems (Last Reviewed 03/17/17 @ 14:24 by Camille Escalante) Valvular heart disease (Chronic) Right-sided heart failure (Chronic) Hyperlipidemia due to type 1 diabetes mellitus (Chronic) Pt had some issues with statin use in past and has since refused any further trial of statin drug. Eats healthy. HDL 130. Uncontrolled type 1 diabetes mellitus with complication, without long-term current use of insulin (Chronic) Pt continues to keep bedtime BG high to prevent nocturnal hypoglycemia although this does not seem to be the best approach. I have ask her to change night time basal rates but she is not interested in doing. A1c high at 10.5 due to patient fear of low BG. No checking enough for optimal control. Enc 4 BG daily. Hospital Course and Treatment Operations: None Summary of Care Provided: Patient is an 81-year-old female presenting with bilateral lower extremity swelling found to have bilateral DVTs 1. Bilateral lower extremity DVTs patient has been admitted to monitored bed had previously been discharged home on Eliquis for his A. fib dose adjusted for DVT treatment the patient was discharged home on Eliquis 5 mg p.o. twice daily for 7 days then 2.5 mg twice daily for 3 months. Was instructed to wear compression stockings at all times 2. Paroxysmal A. fib patient is on beta blockers as well as amiodarone did continue with the discharge dose 3. Diabetes mellitus type 1 patient is on insulin drip did continue 4. Hypertension patient blood pressure was labile during her admission. Was on enalapril discontinued subsequently placed on Coreg monitoring closely 5. Physical deconditioning requested for PT/OT eval and treatment and social service director to assist with discharge planning possibly [facility] Discharge Diet: 1800 Calorie Control Diet Home Medications: Medications to take at Discharge insulin lispro 100 unit/mL subcutaneous solution See Label Instructions SC QDAY 03/17/17 Amiodarone HCl [Cordarone] 200 mg PO UD #100 tab 04/19/17 Aspirin [Aspirin, Baby] 81 mg PO DAILY@0800 04/21/17 Carvedilol [Coreg (Beta Zoraida)] 6.25 mg PO BID 04/21/17 Apixaban [Eliquis] 2.5 mg PO BID #60 tab 04/22/17 Furosemide [Lasix] 20 mg PO DAILY #30 tab 04/22/17 Following Prescrptions Were Given to Patient: Apixaban [Eliquis] 2.5 mg PO BID #60 tab Furosemide [Lasix] 20 mg PO DAILY #30 tab Primary Care Physician: Care Physician,No Primary [Primary Care Provider] - Disposition: Home Minutes spent on discharge:: 35 Patient Condition:: Stable Meaningful Use Info Meaningful Use Diagnoses (Choose all that apply): VTE - VTE Anticoag overlap given w/in hospital stay or rx'd at dc?: No Pt receive overlap for 5 days?: No Reason overlap not ordered, prescribed, or given for 5 days: Treatment Not Indicated Code Visit OBSV E&M: 11465 Observation care discharge
--- NOTE | 2017-04-22 10:28 | CASEMGMT ---
This RN CM to bedside to speak with pt and daughter at this time. This RN CM mentioned HHC and [facility]N to pt and daughter at this time. Pt has been up doing laps in hallway with no concerns. Pt and daughter agree on referral to [facility] at this time. Call placed to [facility] to notify her of order placed and states they will try to see pt tomorrow and at the latest wednesday. Pt/daughter updated at this time, voices understanding. Maldonado RN CM
--- NOTE | 2017-04-22 10:30 | DS.PCM_ITS ---
Discharge Date and Diagnosis - Problem List Patient Problems: Active and Suspected Problems (Last Reviewed 03/17/17 @ 14:24 by Camille Escalante ) DVT (deep venous thrombosis) (Acute) Date of Admission: 04/21/17 Date of Discharge: 04/22/17 - Primary Discharge Diagnosis Active and Suspected Problems (Last Reviewed 03/17/17 @ 14:24 by Camille Escalante ) DVT (deep venous thrombosis) (Acute) - Secondary Discharge Diagnosis Chronic Problems (Last Reviewed 03/17/17 @ 14:24 by Camille Escalante) Valvular heart disease (Chronic) Right-sided heart failure (Chronic) Hyperlipidemia due to type 1 diabetes mellitus (Chronic) Pt had some issues with statin use in past and has since refused any further trial of statin drug. Eats healthy. HDL 130. Uncontrolled type 1 diabetes mellitus with complication, without long-term current use of insulin (Chronic) Pt continues to keep bedtime BG high to prevent nocturnal hypoglycemia although this does not seem to be the best approach. I have ask her to change night time basal rates but she is not interested in doing. A1c high at 10.5 due to patient fear of low BG. No checking enough for optimal control. Enc 4 BG daily. Hospital Course and Treatment Operations: None Summary of Care Provided: Patient is an 81-year-old female presenting with bilateral lower extremity swelling found to have bilateral DVTs 1. Bilateral lower extremity DVTs patient has been admitted to monitored bed had previously been discharged home on Eliquis for his A. fib dose adjusted for DVT treatment the patient was discharged home on Eliquis 5 mg p.o. twice daily for 7 days then 2.5 mg twice daily for 3 months. Was instructed to wear compression stockings at all times 2. Paroxysmal A. fib patient is on beta blockers as well as amiodarone did continue with the discharge dose 3. Diabetes mellitus type 1 patient is on insulin drip did continue 4. Hypertension patient blood pressure was labile during her admission. Was on enalapril discontinued subsequently placed on Coreg monitoring closely 5. Physical deconditioning requested for PT/OT eval and treatment and director social service to assist with discharge planning possibly home with [facility] Discharge Diet: 1800 Calorie Control Diet Home Medications: Medications to take at Discharge insulin lispro 100 unit/mL subcutaneous solution See Label Instructions SC QDAY 03/17/17 Amiodarone HCl [Cordarone] 200 mg PO UD #100 tab 04/19/17 Aspirin [Aspirin, Baby] 81 mg PO DAILY@0800 04/21/17 Carvedilol [Coreg (Beta Zoraida)] 6.25 mg PO BID 04/21/17 Apixaban [Eliquis] 2.5 mg PO BID #60 tab 04/22/17 Furosemide [Lasix] 20 mg PO DAILY #30 tab 04/22/17 Following Prescrptions Were Given to Patient: Apixaban [Eliquis] 2.5 mg PO BID #60 tab Furosemide [Lasix] 20 mg PO DAILY #30 tab Primary Care Physician: Care Physician,No Primary [Primary Care Provider] - Disposition: Home Minutes spent on discharge:: 35 Patient Condition:: Stable Meaningful Use Info Meaningful Use Diagnoses (Choose all that apply): VTE - VTE Anticoag overlap given w/in hospital stay or rx'd at dc?: No Pt receive overlap for 5 days?: No Reason overlap not ordered, prescribed, or given for 5 days: Treatment Not Indicated Code Visit OBSV E&M: 30767 Observation care discharge
--- NOTE | 2017-04-22 10:31 | CT_ITS ---
STUDY: CTA CHEST REASON FOR EXAM: Female, 81 years old. CP, LEG SWELLING, HX-BILAT DVT'S ON ELIQUIS, HAS INSULIN PUMP, A-FIB, HTN. RADIATION DOSAGE (If Supplied By Facility): CTDIvol = ( 6.38 ) mGy, DLP = ( 159.76 ) mGycm TECHNIQUE: The examination was performed with the intravenous administration of 75 ml of Isovue 370 contrast material. Post-processing of the angiographic images was performed, with multiplanar reformation and 3D reconstruction. Individualized dose optimization techniques were used for this CT. COMPARISON: None. FINDINGS: Normal enhancement of the main pulmonary artery and right and left pulmonary arteries. Normal enhancement of the bilateral peripheral pulmonary arteries. There is no demonstrated pulmonary embolism. There is atherosclerotic calcification of the aortic arch with tortuosity. There is no demonstrated aortic dissection. Normal heart and pericardium. Normal mediastinum. Normal hilar regions. Normal visualized trachea and bronchi. The lungs are well expanded. There is moderate right and small left pleural effusions with adjacent atelectasis/consolidation. Normal chest wall structures. Normal osseous structures. Normal visualized upper abdomen. CT/CTA Chest W/WO Contrast IMPRESSION: No demonstrated pulmonary embolism. Bilateral pleural effusions with atelectasis/consolidation, greater on the right. Electronically Signed: Kateryna Green MD at 11:28 EST Tel , Service support ,
[2017-04-22 10:53] VITALS: PULSE 104
[2017-04-22 11:26] VITALS: BP 99/60; PULSE 67; RESP 16; TEMP 36.8; O2SAT 95
== END 2017-04-22 13:13 | disposition home or self-care (01) ==
LOC: ED 16:15 → PCU 17:17
PROVIDERS: Admitting Provider Internal Medicine; Emergency Provider Emergency Medicine; Visit Provider Internal Medicine
DX: I82.442 Acute embolism and thrombosis of left tibial vein (principal); R60.0 Localized edema; E78.5 Hyperlipidemia, unspecified; E10.65 Type 1 diabetes mellitus with hyperglycemia; I48.0 Paroxysmal atrial fibrillation; I50.9 Heart failure, unspecified; I11.0 Hypertensive heart disease with heart failure; Z79.4 Long term (current) use of insulin; Z79.82 Long term (current) use of aspirin; Z79.01 Long term (current) use of anticoagulants; Z79.899 Other long term (current) drug therapy
CPT/HCPCS: 36415; 71045; 71275; 80048; 80076; 82962; 83880; 84484; 85027; 93005; 93970; 96374; 96376; 99218; 99285; Q9967; A4216; G0378; J1940

== ENCOUNTER → 2017-06-07 12:03 | Outpatient (CLI) | payer MEDICARE, SELFPAY | PROVIDERS: Visit Provider Physician Assistant Medical | DX: I50.810 Right heart failure, unspecified (principal) ==

== ENCOUNTER 2017-06-17 08:28 | Inpatient (IN) | payer MEDICARE, SELFPAY ==
[2017-06-17] VITALS (23 sets, daily range): BP systolic 109–139; BP diastolic 46–76; PULSE 64–73; RESP 10–21; TEMP 36.1–37.7; O2SAT 90–100; BMI 20.9; BMI 19.9
--- NOTE | 2017-06-17 08:40 | EKG12_ITS ---
Test Reason : HIGH BLOODSUGAR Blood Pressure : / mmHG Vent. Rate : 071 BPM Atrial Rate : 071 BPM P-R Int : 286 ms QRS Dur : 096 ms QT Int : 426 ms P-R-T Axes : 078 039 044 degrees QTc Int : 462 ms Sinus rhythm with 1st degree A-V block Nonspecific ST abnormality Abnormal ECG Confirmed by EDWIN AGUILERA, BERTHA ([id number]), editor city PAMELA HAYES ([id number]) on 06/21/2017 1:10:03 PM Referred By: MIGUELINA Confirmed By:BERTHA PINEDA MD
--- NOTE | 2017-06-17 08:43 | RAD_ITS ---
STUDY: X-RAY CHEST REASON FOR EXAM: Female, 81 years old. Abnormal breath sounds (adventitial) TECHNIQUE: Single AP upright portable chest view. COMPARISON: Chest 04/21/2017. Correlation CT chest 04/22/2017. FINDINGS: The lungs appear hyperexpanded and clear of active focal pulmonary consolidation with air bronchograms, pleural effusion or abnormally dilated pulmonary vascularity. No large gross pneumothorax identified. Fairly severe biapical hyperexpansion/hyperlucency noted consistent with COPD. Normal size heart for projection. Normal mediastinum and jarrell. Mildly prominent pulmonary arteries. Moderate aortic knob calcifications noted Normal visualized thoracic spine. Normal visualized ribs, clavicles, and shoulders. There is no demonstrated abnormality of the visualized soft tissue structures of the upper abdomen. No subdiaphragmatic free air seen grossly. 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 Moderate aortic knob calcification. Electronically Signed: Ricardo Lacey, at 10:00 EDT Tel , Service support ,
--- NOTE | 2017-06-17 08:49 | ED.DCSUM_ITS ---
- ER Visit Summary Date of Service: 06/17/17 Chief Complaint: Glucometer reading high History of Present Illness: The patient is a 81 F who states her blood sugars have been high for the past 2-3 weeks. She denies any fever, chills or night sweats. She denies any URI symptoms. She does complain of binocular blurred vision. She also complains of poly-tipsy and probably urea. She denies any chest pain, palpitations or rapid heart rate. She denies shortness of breath, difficulty breathing, orthopnea or PND. She denies any abdominal pain but does complain of mild nausea without vomiting or diarrhea. She denies any dysuria, urgency or hematuria. She denies any rash or skin lesions. She denies swelling or hives. She denies bruising easily or problems with bleeding. She does complain of generalized weakness otherwise neuro negative. Past medical history asthma, type 1 diabetes, chronic atrial fibrillation on amiodarone, DVT and valvular heart disease. Patient is status post bilateral cataract surgery. Physical Examination: Vital signs are normal. She is not febrile or hypoxic. She is not alert but she is oriented. Pupils are not equal and round. There is evidence of prior surgery. Conjunctive is not injected and sclerae nonicteric. TMs normal. Nares patent. Mucosa is dry. Trachea is midline. Lungs reveal abnormal adventitial breath sounds. Heart is regular without murmur, gallop or rub. Abdomen slightly distended and tympanitic bowel sounds are present normal. There is no guarding or rebound tenderness noted. There is no asymmetry, swelling, discoloration, leg vein distention, palpable cords or tenderness along the distribution of the deep venous system. Neuro exam is nonfocal. Test Results: EKG interpreted me as a normal sinus rhythm with a rate of 71 and evidence of a first-degree heart block. The EKG is otherwise normal. Portable chest x-ray reveals no cardiopulmonary abnormality. There is evidence of hyperaeration. Electrode panels marked for sodium 130, potassium 5.3, CO2 18 with an anion gap of 20. Blood sugar 638 with a BUN and creatinine of 49 and 1.48. BUN/creatinine ratio 33-1. GFR is 33. Urine is pending. Del Castillo was placed. Emergency Department Course and Treatment: Glucometer reading in the department is high, greater than 600. She will receive 1 L of normal saline which is equivalent to 20 cc/kg. ED DKA order set was initiated. Will obtain EKG to evaluate for any ST-T wave changes that may suggest hyperkalemia. Because of the adventitial breath sounds a chest x-ray was obtained to evaluate for pneumonia as an expiration of her elevated blood sugar. Urine was obtained as well to evaluate for UTI. Treatment Plan: 1.5 L of fluids have instilled. Will start insulin drip for treatment of DKA. The hospitalist was paged for admission. The hospitalist was made aware that the UA are pending. Disposition: Admit ICU Impression: 1. DKA 2. Prerenal azotemia with acute renal insufficiency 3. Pseudohyponatremia 4. Mild hyperkalemia This note was generated with [employer] dictation software. It may contain incorrect words, spelling, and punctuation that were not noted in review of the chart prior to signing ED Disposition - Plan for ED Patient: Chief Complaint: Hyperglycemia Referrals: Ryan Sams MD [Primary Care Provider] -
[2017-06-17 08:51] LABS: Bedside Glucose > 500 mg/dL (70-110)
[2017-06-17] MEDS: 0.9% Normal Saline 1,000 ML 999 ML IV (09:11)
[2017-06-17 09:22] LABS: Anion Gap 20 (5-15); BUN 49 mg/dL (7-18); BUN/Creat Ratio 33.1 RATIO (10-20); Calcium,Total 8.8 mg/dL (8.5-10.1); Chloride 92 mmol/L (98-107); Creatinine, Serum 1.48 mg/dL (0.55-1.02); EST Glomerular Filtration Rate 36 mL/min (>60); Est Glom Filt Rate - Afr Amer 44 mL/min (>60); Estimated Creatinine Clearance 22.88 ml/min; Glucose 638 mg/dL (74-106); Potassium 5.3 mmol/L (3.5-5.1); Sodium Level 130 mmol/L (136-145)
[2017-06-17 09:46] LABS: Mucous, Urine 0 SEEN /hpf (<or=2+); Squamous Epithelial Cells - UA 0 SEEN /hpf (5-10)
[2017-06-17 09:49] LABS: Color, Urine Yellow (Yellow); Glucose, Dipstick 1000 mg/dl (Normal); Ketone-Dipstick 50 mg/dl (Negative); Leukocyte Esterase-Dipstick 25 /ul (Negative); Nitrite-Dipstick Positive (Negative); Occult Blood-Urine 10 /ul (Negative); Protein-Dipstick Negative (Negative); Urine Bilirubin Dipstick Negative (Negative); Urine Clarity Clear (Clear); Urine Urobilinogen Normal (Normal)
[2017-06-17 09:55] LABS: Bacteria 1+ /hpf (None Seen); Red Blood Cells-Urine 0-5 SEEN /hpf (0-5); White Blood Cells 0-5 SEEN /hpf (0-5)
[2017-06-17 09:58] LABS: Absolute Lymphocyte Count 0.79 X10^3/ul (0.83-4.51); Absolute Neutrophil Count 9.2 X10^3/uL (2.0-7.7); Basophil# 0.02 X10^3/uL; Basophil% 0.2 % (0-1); Differential Indicated SCAN CRITERIA MET; Eosinophil# 0.01 X10^3/uL; Eosinophils% 0.1 % (0-5); Hematocrit 33.6 % (37-47); Lymphocyte # 0.79 X10^3/ul (4.0); Lymphocyte % 7.2 % (19-41); Mean Corp Hgb Conc 32.7 g/gl (32-36); Mean Corpuscular Hgb 30.4 pg (27.0-32.0); Mean Corpuscular Volume 92.8 fL (81-99); Mean Platelet Vol. 11.5 fl (6.2-12.0); Monocyte# 0.89 X10^3/uL; Monocyte% 8.1 % (0-10); Neutrophil # 9.23 X10^3/uL (2.7-7.7); POSITIVE COUNT NO; POSITIVE DIFFERENTIAL NO; POSITIVE MORPHOLOGY YES; Platelet Count 267 K/mm3 (150-450); RBC Distribution Width CV 14.3 % (11.6-14.6); RBC Distribution Width SD 47.2 fl (35.1-43.9); Red Blood Count 3.62 M/mm3 (4.2-5.4)
[2017-06-17 09:59] LABS: Differential Comment SCANNED
--- NOTE | 2017-06-17 09:59 | PCM.HP.STD ---
Problem List (1) DKA (diabetic ketoacidoses) Status: Acute (2) FPC current use of amiodarone Status: Chronic (3) Paroxysmal atrial fibrillation Status: Chronic (4) Overweight Status: Acute (5) DVT (deep venous thrombosis) Status: Acute Qualifiers: DVT location: lower extremity Affected thrombotic vein of extremity: other lower extremity vein Chronicity: acute Laterality: bilateral Qualified Code(s): I82.493 - Acute embolism and thrombosis of other specified deep vein of lower extremity, bilateral (6) Valvular heart disease Status: Chronic (7) Right-sided heart failure Status: Chronic Qualifiers: Heart failure chronicity: acute Qualified Code(s): I50.811 - Acute right heart failure (8) Hyperlipidemia due to type 1 diabetes mellitus Status: Chronic (9) Uncontrolled type 1 diabetes mellitus with complication, without long-term current use of insulin Status: Chronic History of Present Illness Date of Admission: 06/17/17 Chief Complaint: Very dehydrated and weak since Wednesday The patient is a 81 year old F with history of type 1 diabetes mellitus, right heart failure, valvular heart disease and paroxysmal A. fib on amiodarone and apixaban came to ER with dehydration, generalized weakness and tiredness for last 4 days. Patient was on heavy dose of Lasix 40 mg twice daily which was decreased to 20 mg twice daily on Wednesday by Dr. Hong. In ED, her blood sugar was found more than 600, K5.3, creatinine 1.48, BUN 49, bicarb 18 with anion gap 20. Chest x-ray suggestive of severe COPD without acute disease. 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) Paroxysmal atrial fibrillation (Chronic) Valvular heart disease (Chronic) Right-sided heart failure (Chronic) Hyperlipidemia due to type 1 diabetes mellitus (Chronic) Uncontrolled type 1 diabetes mellitus with complication, without long-term current use of insulin (Chronic) Allergies No Known Allergies Allergy (Verified 06/07/17 10:59) Home Medications: Ambulatory Orders Medication Instructions Recorded insulin lispro (U-100) 100 unit/mL See Label Instructions SC QDAY 03/17/17 subcutaneous solution Aspirin [Aspirin, Baby] 81 mg PO DAILY@0800 01/31/18 amiodarone 200 mg tablet 200 mg PO QDAY #90 tab 05/19/17 apixaban 2.5 mg tablet 2.5 mg PO BID #180 tab 05/19/17 carvedilol 12.5 mg tablet 6.25 mg PO BID #180 tab 05/27/17 furosemide 40 mg tablet 40 mg PO .COMPLEX #60 tab 06/16/17 Smoking Status: Former smoker - *Family History Sibling History Items: Heart Disease - Had some cardiac surgery. Review of Systems Constitutional: Reports: Malaise, Weakness, Fatigue. Denies: Chills, Fever, Weight Change HEENT: Reports: - - Small epistaxis from dry nose. Denies: Head Aches, Sinus Congestion, Sinus Drainage Cardiovascular: Denies: Chest Pain, Palpitations Respiratory: Reports: -. Denies: Cough, Shortness of breath at rest, Sputum production Gastrointestinal: Denies: Abdominal Pain, Nausea, Vomiting Genitourinary: Denies: Dysuria Musculoskeletal: Denies: Joint Pain, Joint Tenderness Skin: Denies: Rash, Wounds Neurological: Denies: Numbness, Tingling, Focal weakness Psychiatric: Denies: Anxiety, Depression, Homicidal Ideations, Suicidal Ideations Hematologic/ Lymphatic: Denies: Easy Bruising, Easy Bleeding VTE Information - Inpt Only VTE Present on Admission: No VTE Mechan Device Prophylaxis: SCD's VTE Pharm Prophylaxis ordered?: Yes Patient Problems: Active and Suspected Problems (Last Updated 06/11/17 @ 17:02 by ELLIOT Moore) DKA (diabetic ketoacidoses) (Acute) - Physical Exam General: Alert, Oriented x3, Cooperative HEENT: Atraumatic, PERRLA, EOMI, Normocephalic Oral: Dry Mucosa Neck: Supple, No JVD, Negative Carotid Bruits Lungs: Clear to auscultation, Normal air movement, No rhonchi, No wheeze, No rales Cardiovascular: Regular rate, Regular Rhythm, Normal S1, Normal S2, No murmurs Abdomen: Bowel Sounds Present, Soft, Non Tender, Non-Distended Extremities: No edema, Capillary Refill Less than 3 Seconds Skin: No rashes, No breakdown Musculoskeletal: No Tenderness to Palpation of Joints or Extremities Neurological: Cranial nerves II-XII grossly intact Psych/Mental Status: Normal Affect, Appropriate Vital Signs Temp Pulse Resp BP Pulse Ox 97.6 F L 72 12 116/49 L 97 06/17/17 08:31 06/17/17 08:31 06/17/17 08:31 06/17/17 08:31 06/17/17 08:31 Oxygen Delivery Method Room Air Weight: 110 lb 14.4 oz Body Mass Index (BMI) 20.9 Laboratory Tests Past 24 Hrs 06/17/17 06/17/17 06/17/17 08:51 08:51 08:51 WBC 11.0 RBC 3.62 L Hgb 11.0 L Hct 33.6 L MCV 92.8 MCH 30.4 MCHC 32.7 RDW 14.3 RDW Differential 47.2 H Plt Count 267 MPV 11.5 Immature Gran % (Auto) 0.400 Neut % (Auto) 84.0 H Lymph % (Auto) 7.2 L [place] % (Auto) 8.1 Eos % (Auto) 0.1 Baso % (Auto) 0.2 Absolute Neuts (auto) 9.2 H Absolute Lymphs (auto) 0.79 L Total Counted Pending Sodium 130 L Potassium 5.3 H Chloride 92 L Carbon Dioxide 18.0 L Anion Gap 20 H BUN 49 H Creatinine 1.48 H Estim Creat Clear Calc 22.88 Est GFR (MDRD) Af Amer 44 L Est GFR (MDRD) Non-Af 36 L BUN/Creatinine Ratio 33.1 H Glucose 638 H* Calcium 8.8 Urine Color Urine Clarity Urine pH Ur Specific [place] Urine Protein Urine Glucose (UA) Urine Ketones Urine Occult Blood Urine Nitrite Urine Bilirubin Urine Urobilinogen Ur Leukocyte Esterase Urine RBC Urine WBC Ur Squamous Epith Cells Urine Bacteria Urine Mucus Acetone Level SMALL H 06/17/17 06/17/17 08:51 09:40 WBC RBC Hgb Hct MCV MCH MCHC RDW RDW Differential Plt Count MPV Immature Gran % (Auto) Neut % (Auto) Lymph % (Auto) [place] % (Auto) Eos % (Auto) Baso % (Auto) Absolute Neuts (auto) Absolute Lymphs (auto) Total Counted Sodium Pending Potassium Pending Chloride Pending Carbon Dioxide Pending Anion Gap Pending BUN Pending Creatinine Pending Estim Creat Clear Calc Est GFR (MDRD) Af Amer Pending Est GFR (MDRD) Non-Af Pending BUN/Creatinine Ratio Pending Glucose Pending Calcium Pending Urine Color Yellow Urine Clarity Clear Urine pH 5.0 Ur Specific [place] 1.010 Urine Protein Negative Urine Glucose (UA) 1000 H Urine Ketones 50 H Urine Occult Blood 10 H Urine Nitrite Positive H Urine Bilirubin Negative Urine Urobilinogen Normal Ur Leukocyte Esterase 25 H Urine RBC 0-5 SEEN Urine WBC 0-5 SEEN Ur Squamous Epith Cells 0 SEEN Urine Bacteria 1+ Urine Mucus 0 SEEN Acetone Level POC Glucose 06/17/17 08:37 POC Glucose > 500 H* Assessment/Plan Active and Suspected Problems (Last Updated 06/11/17 @ 17:02 by ELLIOT Moore) DKA (diabetic ketoacidoses) (Acute) The patient is a 81 year old F with history of type 1 diabetes mellitus, right heart failure, valvular heart disease and paroxysmal A. fib on amiodarone and apixaban came to ER with dehydration, generalized weakness and tiredness for last 4 days. Patient was on heavy dose of Lasix 40 mg twice daily which was decreased to 20 mg twice daily on Wednesday by Dr. Hong. In ED, her blood sugar was found more than 600, K5.3, creatinine 1.48, BUN 49, bicarb 18 with anion gap 20. Chest x-ray suggestive of severe COPD without acute disease. 1. DKA with history of type 1 diabetes mellitus, exact etiology unclear probably from over diuresis from Lasix: The patient is being admitted in the ICU as per DKA protocol. Needs IV fluid rehydration, frequent BMP monitoring and acetone. ABG shows 7.25/PCO2 30/PO2 75 on room air. 2. Paroxysmal A. fib on amiodarone and Eliquis: Continue amiodarone and Eliquis. Patient had mild epistaxis most probably from dry nose. Saline nasal spray every 4 hourly. 3. Recent admission with bilateral lower extremity DVT on Eliquis. She was discharged on 04/22/2017. 4. Right-sided heart failure with valvular heart disease: As per the last echo in March 2017, EF 55% with normal left ventricle size with mild global hypokinesis. Mild to moderate posteriorly directed MR, mild diffuse mitral valve thickening, mild TR, RVSP 37 mmHg, so history of mild pulmonary hypertension. Mild focal aortic wall thickening with calcification. At this point of time, patient is very dehydrated. Hold Lasix. 4. Dyslipidemia and hypertension: Hold antihypertensive medication. DVT prophylaxis on Eliquis. Clinical Impression(s) from Imaging Studies Chest X-Ray 06/17/17 08:43 IMPRESSION: Severe appearing COPD without active cardiopulmonary disease identified. Moderate aortic knob calcification. Electronically Signed: Ricardo Lacey, at 10:00 EDT Tel , Service support , Laboratory Results 06/17/17 08:37: POC Glucose > 500 H* 06/17/17 08:51: Acetone Level SMALL H 06/17/17 08:51: WBC 11.0, RBC 3.62 L, Hgb 11.0 L, Hct 33.6 L, MCV 92.8, MCH 30.4, MCHC 32.7, RDW 14.3, RDW Differential 47.2 H, Plt Count 267, MPV 11.5, Immature Gran % (Auto) 0.400, Neut % (Auto) 84.0 H, Lymph % (Auto) 7.2 L, [place] % (Auto) 8.1, Eos % (Auto) 0.1, Baso % (Auto) 0.2, Absolute Neuts (auto) 9.2 H, Absolute Lymphs (auto) 0.79 L, Total Counted Not Reportable, Differential Comment SCANNED 06/17/17 08:51: Sodium 130 L, Potassium 5.3 H, Chloride 92 L, Carbon Dioxide 18.0 L, Anion Gap 20 H, BUN 49 H, Creatinine 1.48 H, Estim Creat Clear Calc 22.88, Est GFR (MDRD) Af Amer 44 L, Est GFR (MDRD) Non-Af 36 L, BUN/Creatinine Ratio 33.1 H, Glucose 638 H*, Calcium 8.8 06/17/17 08:51: Sodium Cancelled, Potassium Cancelled, Chloride Cancelled, Carbon Dioxide Cancelled, Anion Gap Cancelled, BUN Cancelled, Creatinine Cancelled, Estim Creat Clear Calc Cancelled, Est GFR (MDRD) Af Amer Cancelled, Est GFR (MDRD) Non-Af Cancelled, BUN/Creatinine Ratio Cancelled, Glucose Cancelled, Calcium Cancelled 06/17/17 08:51: Magnesium 2.5, Total Creatine Kinase 32, Troponin I < 0.02 06/17/17 09:40: Urine Color Yellow, Urine Clarity Clear, Urine pH 5.0, Ur Specific [place] 1.010, Urine Protein Negative, Urine Glucose (UA) 1000 H, Urine Ketones 50 H, Urine Occult Blood 10 H, Urine Nitrite Positive H, Urine Bilirubin Negative, Urine Urobilinogen Normal, Ur Leukocyte Esterase 25 H, Urine RBC 0-5 SEEN, Urine WBC 0-5 SEEN, Ur Squamous Epith Cells 0 SEEN, Urine Bacteria 1+, Urine Mucus 0 SEEN 06/17/17 10:27: POC Glucose > 500 H* 06/17/17 11:00: MRSA (PCR) Pending 06/17/17 11:01: POC Glucose 494 H* 06/17/17 11:39: Specimen Type ART, Sample Site R Radial, pH 7.25 L, Bicarbonate Actual 13.4 L, POC Total CO2 14, Base Excess -14 L, O2 Saturation 93 L, ABG pCO2 30.8 L, ABG pO2 75, Andres Test POS, O2 Delivery Device Room Air, Blood Gas Notified Whom HOSP , Blood Gas Notified Time 1140 [] Code Visit Inpatient E&M: 47924 Subs Hosp L3
[2017-06-17 10:36] LABS: Bedside Glucose > 500 mg/dL (70-110)
[2017-06-17] MEDS: 0.9% Normal Saline 1,000 ML 500 ML IV (11:18)
[2017-06-17 11:31] LABS: Bedside Glucose 494 mg/dL (70-110)
[2017-06-17 11:39] LABS: CPK Total, Creatine Kinase 32 U/L (26-192); Magnesium 2.5 mg/dL (1.6-2.6)
[2017-06-17 11:46] LABS: Allen Test POS; Base Excess -14 mmol/L (-2 to +2); Bicarbonate 13.4 mmol/L (22-26); Blood Gas Specimen Type ART; O2 Delivery Device Room Air; PO2 75 mmHG (75-100); SITE R Radial; SO2 93 % (95-99); Time Given 1140; Total Carbon Dioxide 14 mmol/L; pCO2 30.8 mmHg (35-45); pH 7.25 (7.35-7.45)
[2017-06-17 12:16] LABS: Bedside Glucose 429 mg/dL (70-110)
[2017-06-17 12:17] LABS: M R Staph aureus DNA By PCR Negative (Negative); Probe Check PASS; Specimen Processing Control PASS
--- NOTE | 2017-06-17 13:00 | NURSING ---
Noted that pt has an insulin gtt. spoke w/dr bro who ordered for insulin pump to be d/c. d/c at this time.
[2017-06-17] MEDS: 0.9% Normal Saline 1,000 ML 250 ML IV (13:06)
[2017-06-17 13:15] LABS: Bedside Glucose 398 mg/dL (70-110)
[2017-06-17 13:46] LABS: AST(SGOT) 66 U/L (15-37); Alanine Aminotransfer ALT/SGPT 56 U/L (13-56); Albumin, Serum 3.1 g/dL (3.2-5.0); Alkaline Phosphatase 340 U/L (45-117); Anion Gap 17 (5-15); BUN 42 mg/dL (7-18); BUN/Creat Ratio 30.9 RATIO (10-20); Bilirubin, Direct 0.18 mg/dL (0.00-0.30); Calcium,Total 8.1 mg/dL (8.5-10.1); Chloride 101 mmol/L (98-107); Creatinine, Serum 1.36 mg/dL (0.55-1.02); EST Glomerular Filtration Rate 40 mL/min (>60); Est Glom Filt Rate - Afr Amer 48 mL/min (>60); Estimated Creatinine Clearance 25.78 ml/min; Globulin 3.6 g/dL (2.2-4.2); Glucose 404 mg/dL (74-106); Potassium 4.1 mmol/L (3.5-5.1); Protein, Total 6.7 g/dL (6.4-8.2); Sodium Level 136 mmol/L (136-145)
[2017-06-17] MEDS: Amiodarone 200 MG Tablet 400 MG PO (14:05)
[2017-06-17] MEDS: Carvedilol 6.25 MG Tablet PO ×2 (14:05→21:30)
[2017-06-17] MEDS: APIXABAN 2.5 MG TABLET PO ×2 (14:06→21:31)
[2017-06-17 14:16] LABS: Bedside Glucose 332 mg/dL (70-110)
[2017-06-17 15:25] LABS: Bedside Glucose 379 mg/dL (70-110)
[2017-06-17 16:06] LABS: Bedside Glucose 306 mg/dL (70-110)
[2017-06-17 17:06] LABS: Bedside Glucose 254 mg/dL (70-110)
[2017-06-17 18:32] LABS: Anion Gap 12 (5-15); BUN 37 mg/dL (7-18); BUN/Creat Ratio 28.5 RATIO (10-20); Calcium,Total 8.1 mg/dL (8.5-10.1); Chloride 105 mmol/L (98-107); EST Glomerular Filtration Rate 42 mL/min (>60); Est Glom Filt Rate - Afr Amer 51 mL/min (>60); Estimated Creatinine Clearance 26.97 ml/min; Glucose 259 mg/dL (74-106); Potassium 4.3 mmol/L (3.5-5.1); Sodium Level 139 mmol/L (136-145)
[2017-06-17 18:41] LABS: Bedside Glucose 241 mg/dL (70-110)
--- NOTE | 2017-06-17 18:48 | EKG12_ITS ---
Test Reason : INCREASE TROPONIN Blood Pressure : / mmHG Vent. Rate : 066 BPM Atrial Rate : 066 BPM P-R Int : 238 ms QRS Dur : 090 ms QT Int : 408 ms P-R-T Axes : 090 042 099 degrees QTc Int : 427 ms Sinus rhythm with 1st degree A-V block ST & T wave abnormality, consider anterior ischemia Abnormal ECG When compared with ECG of 17-JUN-2017 09:00, MANUAL COMPARISON REQUIRED, DATA IS UNCONFIRMED Confirmed by EDWIN AGUILERA, BERTHA ([id number]), medical transcription editor PAMELA HAYES ([id number]) on 06/21/2017 2:04:27 PM Referred By: IRAM Confirmed By:BERTHA PINEDA MD
[2017-06-17] MEDS: Dext 5%-0.45% NS 1,000 ML 100 ML IV (19:20)
[2017-06-17 19:46] LABS: Bedside Glucose 236 mg/dL (70-110)
[2017-06-17 20:46] LABS: Bedside Glucose 234 mg/dL (70-110)
[2017-06-17] MEDS: 0.9% NaCl Peripheral Flush Adult/Peds IV (21:31)
[2017-06-17 22:00] LABS: Bedside Glucose 261 mg/dL (70-110)
[2017-06-17 22:17] LABS: Anion Gap 8 (5-15); BUN 34 mg/dL (7-18); BUN/Creat Ratio 27.2 RATIO (10-20); Calcium,Total 8.3 mg/dL (8.5-10.1); Chloride 103 mmol/L (98-107); Creatinine, Serum 1.25 mg/dL (0.55-1.02); EST Glomerular Filtration Rate 44 mL/min (>60); Est Glom Filt Rate - Afr Amer 53 mL/min (>60); Estimated Creatinine Clearance 28.05 ml/min; Glucose 253 mg/dL (74-106); Potassium 4.3 mmol/L (3.5-5.1); Sodium Level 138 mmol/L (136-145)
[2017-06-17 22:35] LABS: Bedside Glucose 263 mg/dL (70-110)
[2017-06-17] MEDS: 0.45% Normal Saline 1,000 ML 100 ML IV (23:33)
[2017-06-18] VITALS (21 sets, daily range): BP systolic 102–179; BP diastolic 53–114; PULSE 60–66; RESP 10–21; TEMP 36.7–37.7; O2SAT 95–100
[2017-06-18 00:41] LABS: Bedside Glucose 228 mg/dL (70-110)
[2017-06-18 00:41] LABS: Bedside Glucose 219 mg/dL (70-110)
[2017-06-18 00:58] LABS: Anion Gap 8 (5-15); BUN 34 mg/dL (7-18); BUN/Creat Ratio 31.2 RATIO (10-20); Calcium,Total 8.1 mg/dL (8.5-10.1); Chloride 105 mmol/L (98-107); Creatinine, Serum 1.09 mg/dL (0.55-1.02); EST Glomerular Filtration Rate 51 mL/min (>60); Est Glom Filt Rate - Afr Amer 62 mL/min (>60); Estimated Creatinine Clearance 32.17 ml/min; Glucose 219 mg/dL (74-106); Potassium 4.1 mmol/L (3.5-5.1); Sodium Level 139 mmol/L (136-145)
[2017-06-18 01:46] LABS: Bedside Glucose 192 mg/dL (70-110)
[2017-06-18 02:41] LABS: Bedside Glucose 155 mg/dL (70-110)
[2017-06-18 04:01] LABS: Bedside Glucose 127 mg/dL (70-110)
[2017-06-18 04:08] LABS: Absolute Lymphocyte Count 0.93 X10^3/ul (0.83-4.51); Absolute Neutrophil Count 11.3 X10^3/uL (2.0-7.7); Basophil# 0.02 X10^3/uL; Basophil% 0.1 % (0-1); Eosinophil# 0.05 X10^3/uL; Eosinophils% 0.4 % (0-5); Hematocrit 30.8 % (37-47); Hemoglobin 10.3 g/dl (12.0-15.0); Lymphocyte # 0.93 X10^3/ul (4.0); Lymphocyte % 6.8 % (19-41); Mean Corp Hgb Conc 33.4 g/gl (32-36); Mean Corpuscular Hgb 30.7 pg (27.0-32.0); Mean Corpuscular Volume 91.7 fL (81-99); Mean Platelet Vol. 10.7 fl (6.2-12.0); Monocyte# 1.39 X10^3/uL; Monocyte% 10.1 % (0-10); Neutrophil # 11.31 X10^3/uL (2.7-7.7); Neutrophil % 82.3 % (47-70); Platelet Count 263 K/mm3 (150-450); RBC Distribution Width CV 14.3 % (11.6-14.6); RBC Distribution Width SD 46.5 fl (35.1-43.9); Red Blood Count 3.36 M/mm3 (4.2-5.4); White Blood Count 13.7 K/mm3 (4.4-11.0)
[2017-06-18 04:09] LABS: POSITIVE COUNT NO; POSITIVE DIFFERENTIAL NO; POSITIVE MORPHOLOGY NO
[2017-06-18 04:34] LABS: Anion Gap 6 (5-15); BUN 32 mg/dL (7-18); BUN/Creat Ratio 30.5 RATIO (10-20); Calcium,Total 8.3 mg/dL (8.5-10.1); Chloride 105 mmol/L (98-107); Creatinine, Serum 1.05 mg/dL (0.55-1.02); EST Glomerular Filtration Rate 54 mL/min (>60); Est Glom Filt Rate - Afr Amer 65 mL/min (>60); Estimated Creatinine Clearance 33.39 ml/min; Glucose 119 mg/dL (74-106); Potassium 3.8 mmol/L (3.5-5.1); Sodium Level 139 mmol/L (136-145)
[2017-06-18 04:51] LABS: Hemoglobin A1c 11.8 % (4.2-6.3)
[2017-06-18 06:35] LABS: Bedside Glucose 168 mg/dL (70-110)
[2017-06-18 08:20] LABS: Bedside Glucose 233 mg/dL (70-110)
--- NOTE | 2017-06-18 08:48 | RAD_ITS ---
STUDY: X-RAY CHEST REASON FOR EXAM: Female, 81 years old. Shortness of breath. Diabetic ketoacidosis. TECHNIQUE: Single AP upright portable chest view. COMPARISON: Chest 04/21/2017. Correlation CTA chest 04/22/2017. FINDINGS: EKG wires overlie chest. Moderate left greater than right carotid calcifications noted. Biapical hyperexpansion/hyperlucency changes are noted suggestive COPD, unchanged pattern noted. However, increased interstitial markings are seen in the perihilar regions to the periphery predominantly in the lower lobes but also the upper lobes suggesting CHF/fluid overload with thickened septal lines indicating interstitial edema but no rima pulmonary edema. Mild right greater than left pleural effusions and atelectasis/scarring noted which appear mildly increased since chest 06/17/2017. Normal size visualized heart. Trachea near midline. No focal mediastinal widening or mass density seen. Increased jarrell noted due to increased parahilar pulmonary vascularity. Severe aortic knob calcification and calcification descending thoracic aorta again noted, both unchanged. Mild scoliosis apex right mid thoracic spine. No change visualized bone including thoracic spine and ribs. There is no demonstrated abnormality of the visualized soft tissue structures of the upper abdomen. No subdiaphragmatic free air seen grossly. RAD/Chest 1 View (Portable) IMPRESSION: Moderate CHF/fluid overload with interstitial edema. Superimposed pneumonia to be clinically excluded for which follow-up chest exam is recommended to demonstrate complete clearing. Mild right greater than left pleural effusions and atelectasis/scarring noted. Electronically Signed: Ricardo Lacey, at 12:06 EDT Tel , Service support ,
--- NOTE | 2017-06-18 08:51 | PCM.PN.HOSP ---
Patient Problems: Active and Suspected Problems (Last Updated 06/11/17 @ 17:02 by ELLIOT Moore) DKA (diabetic ketoacidoses) (Acute) Subjective: Patient insulin drip discontinued after anion gap patient feels mild short of breath, bicarb was normal. Patient feels mild short of breath but that is from the beginning of admission. Discontinue IV fluid. Patient is having breakfast. Blood pressure is high 179/114. No fever blood sugar is controlled. Vitals/I&O's: Vital Signs Temp Pulse Resp BP Pulse Ox 98.2 F 65 12 127/56 H 98 06/18/17 06:00 06/18/17 06:00 06/18/17 06:00 06/18/17 06:00 06/18/17 06:00 Oxygen Flow Rate (L/min) 2 Oxygen Delivery Method Nasal Cannula Weight: 112 lb 10.499 oz Body Mass Index (BMI) 19.9 Finger Stick Blood Glucose 124 Intake and Output for Last 24 Hours 06/16/17 06/17/17 06/18/17 23:59 23:59 23:59 Intake Total 2412.6 / 2412.6 493.9 / 493.9 Output Total 800 / 800 100 / 100 Balance 1612.6 / 1612.6 393.9 / 393.9 General: Alert, Oriented x3, Cooperative, Lethargic HEENT: Atraumatic, PERRLA, EOMI, Normocephalic Neck: Supple, No JVD, Negative Carotid Bruits Lungs: No rhonchi, No wheeze, Diminished - Right posterior half WITH dull percussion suggestive of possible pleural effusion Cardiovascular: Regular rate, Regular Rhythm, Normal S1, Normal S2, No murmurs Abdomen: Bowel Sounds Present, Soft, Non Tender, Non-Distended Extremities: Capillary Refill Less than 3 Seconds, Edema Skin: No rashes, No breakdown Musculoskeletal: No Tenderness to Palpation of Joints or Extremities Neurological: Cranial nerves II-XII grossly intact Psych/Mental Status: Normal Affect, Appropriate Laboratory Results 06/17/17 10:27: POC Glucose > 500 H* 06/17/17 11:00: MRSA (PCR) Negative 06/17/17 11:01: POC Glucose 494 H* 06/17/17 11:39: Specimen Type ART, Sample Site R Radial, pH 7.25 L, Bicarbonate Actual 13.4 L, POC Total CO2 14, Base Excess -14 L, O2 Saturation 93 L, ABG pCO2 30.8 L, ABG pO2 75, Andres Test POS, O2 Delivery Device Room Air, Blood Gas Notified Whom LIOR AGUILERA, Blood Gas Notified Time 1140 06/17/17 12:05: POC Glucose 429 H 06/17/17 13:08: POC Glucose 398 H 06/17/17 13:10: Sodium 136, Potassium 4.1, Chloride 101, Carbon Dioxide 18.0 L, Anion Gap 17 H, BUN 42 H, Creatinine 1.36 H, Estim Creat Clear Calc 25.78, Est GFR (MDRD) Af Amer 48 L, Est GFR (MDRD) Non-Af 40 L, BUN/Creatinine Ratio 30.9 H, Glucose 404 H, Calcium 8.1 L, Total Bilirubin 0.50, Direct Bilirubin 0.18, AST 66 H, ALT 56, Alkaline Phosphatase 340 H, Total Protein 6.7, Albumin 3.1 L, Globulin 3.6 06/17/17 13:10: Troponin I 0.02 06/17/17 14:02: POC Glucose 332 H 06/17/17 15:10: POC Glucose 379 H 06/17/17 16:01: POC Glucose 306 H 06/17/17 16:58: POC Glucose 254 H 06/17/17 17:20: Acetone Level SMALL H 06/17/17 17:20: Troponin I 0.22 H 06/17/17 17:20: Sodium 139, Potassium 4.3, Chloride 105, Carbon Dioxide 22.0, Anion Gap 12, BUN 37 H, Creatinine 1.30 H, Estim Creat Clear Calc 26.97, Est GFR (MDRD) Af Amer 51 L, Est GFR (MDRD) Non-Af 42 L, BUN/Creatinine Ratio 28.5 H, Glucose 259 H, Calcium 8.1 L 06/17/17 18:35: POC Glucose 241 H 06/17/17 19:34: POC Glucose 236 H 06/17/17 20:37: POC Glucose 234 H 06/17/17 21:00: Troponin I 0.21 H 06/17/17 21:00: Sodium 138, Potassium 4.3, Chloride 103, Carbon Dioxide 27.0, Anion Gap 8, BUN 34 H, Creatinine 1.25 H, Estim Creat Clear Calc 28.05, Est GFR (MDRD) Af Amer 53 L, Est GFR (MDRD) Non-Af 44 L, BUN/Creatinine Ratio 27.2 H, Glucose 253 H, Calcium 8.3 L 06/17/17 21:53: POC Glucose 261 H 06/17/17 22:28: POC Glucose 263 H 06/17/17 23:29: POC Glucose 219 H 06/18/17 00:20: Sodium 139, Potassium 4.1, Chloride 105, Carbon Dioxide 26.0, Anion Gap 8, BUN 34 H, Creatinine 1.09 H, Estim Creat Clear Calc 32.17, Est GFR (MDRD) Af Amer 62, Est GFR (MDRD) Non-Af 51 L, BUN/Creatinine Ratio 31.2 H, Glucose 219 H, Calcium 8.1 L 06/18/17 00:35: POC Glucose 228 H 06/18/17 01:39: POC Glucose 192 H 06/18/17 02:36: POC Glucose 155 H 06/18/17 03:57: POC Glucose 127 H 06/18/17 04:00: WBC 13.7 H, RBC 3.36 L, Hgb 10.3 L, Hct 30.8 L, MCV 91.7, MCH 30.7, MCHC 33.4, RDW 14.3, RDW Differential 46.5 H, Plt Count 263, MPV 10.7, Immature Gran % (Auto) 0.300, Neut % (Auto) 82.3 H, Lymph % (Auto) 6.8 L, [place] % (Auto) 10.1 H, Eos % (Auto) 0.4, Baso % (Auto) 0.1, Absolute Neuts (auto) 11.3 H, Absolute Lymphs (auto) 0.93, Total Counted Not Reportable 06/18/17 04:00: Hemoglobin A1c 11.8 H 06/18/17 04:00: Sodium 139, Potassium 3.8, Chloride 105, Carbon Dioxide 28.0, Anion Gap 6, BUN 32 H, Creatinine 1.05 H, Estim Creat Clear Calc 33.39, Est GFR (MDRD) Af Amer 65, Est GFR (MDRD) Non-Af 54 L, BUN/Creatinine Ratio 30.5 H, Glucose 119 H, Calcium 8.3 L 06/18/17 06:31: POC Glucose 168 H 06/18/17 08:10: POC Glucose 233 H Current Medications Amiodarone HCl (Cordarone) 200 mg PO DAILY [facility] Apixaban (Eliquis) 2.5 mg PO BID [facility] Last Admin: 06/17/17 21:31 Dose: 2.5 mg Aspirin (Aspirin, Baby) 81 mg PO DAILY@0800 [facility] Carvedilol (Coreg) 6.25 mg PO BID [facility] Last Admin: 06/17/17 21:30 Dose: 6.25 mg Dextrose (D50w Syringe) 0 gm IV X1 PRN; Protocol PRN Reason: HYPOGLYCEMIA Glucagon () 1 mg IM .X1 PRN PRN Reason: Hypoglycemia Sodium Chloride () 1,000 mls @ 100 mls/hr IV .Q10H [facility] Last Admin: 06/17/17 23:33 Dose: 100 mls/hr Insulin Aspart (Novolog Flexpen (Bkc)) 3 units SC TIDAC [facility] Insulin Aspart (Novolog Flexpen (Bkc)) 0 units SC ACHS THUAN PRN Reason: Protocol Insulin Detemir (Levemir (Bkc)) 10 units SC BID [facility] Sodium Chloride () 5 - 30 ml IV UD PRN PRN Reason: SALINE FLUSH Last Admin: 06/17/17 21:31 Dose: 10 ml Sodium Chloride ([place] Nasal [place]) 2 spray NASAL Q4H PRN PRN PRN Reason: NASAL DRYNESS Medical Necessity - Tobacco Use Smoking Status: Former smoker Assessment/Plan Active and Suspected Problems (Last Updated 06/11/17 @ 17:02 by ELLIOT Moore) DKA (diabetic ketoacidoses) (Acute) The patient is a 81 year old F with history of type 1 diabetes mellitus, right heart failure, valvular heart disease and paroxysmal A. fib on amiodarone and apixaban came to ER with dehydration, generalized weakness and tiredness for last 4 days. Patient was on heavy dose of Lasix 40 mg twice daily which was decreased to 20 mg twice daily on Wednesday by Dr. Hong. In ED, her blood sugar was found more than 600, K5.3, creatinine 1.48, BUN 49, bicarb 18 with anion gap 20. Chest x-ray suggestive of severe COPD without acute disease. 1. DKA with history of type 1 diabetes mellitus, exact etiology unclear probably from over diuresis from Lasix: The patient was being admitted in the ICU as per DKA protocol. Was managed with IV fluid rehydration, frequent BMP monitoring and acetone. ABG shows 7.25/PCO2 30/PO2 75 on room air. DKA resolved with closed anion gap. IV insulin drip discontinued and changed to Accu-Chek before meals and at bedtime and cover with NovoLog sliding scale. Patient is on Levemir 10 units subcutaneous twice daily and scheduled NovoLog insulin 3 units 3 times daily with meals. Pulmonary venous congestion secondary to congestive heart failure from fluid overload: Patient seems mild shortness of breath. Repeat chest x-ray done which shows small effusion in the right CP angle with cephalization of bronchovascular markings in the upper lobes. No change in mediastinum or jarrell. Lasix 40 mg daily. Watch intake/output and titrate Lasix according to fluid balance. 2. Paroxysmal A. fib on amiodarone and Eliquis: Continue amiodarone and Eliquis. Patient had mild epistaxis most probably from dry nose. Saline nasal spray every 4 hourly. No more episode of epistaxis. 3. Recent admission with bilateral lower extremity DVT on Eliquis. She was discharged on 04/22/2017. 4. Right-sided heart failure with valvular heart disease: As per the last echo in March 2017, EF 55% with normal left ventricle size with mild global hypokinesis. Mild to moderate posteriorly directed MR, mild diffuse mitral valve thickening, mild TR, RVSP 37 mmHg, so history of mild pulmonary hypertension. Mild focal aortic wall thickening with calcification. 4. Dyslipidemia and hypertension: Hold antihypertensive medication. DVT prophylaxis on Eliquis. Clinical Impression(s) from Imaging Studies Chest X-Ray 06/17/17 08:43 IMPRESSION: Severe appearing COPD without active cardiopulmonary disease identified. Moderate aortic knob calcification. Electronically Signed: Ricardo Lacey, at 10:00 EDT Tel , Service support , Chest X-Ray 06/18/17 08:48 IMPRESSION: Moderate CHF/fluid overload with interstitial edema. Superimposed pneumonia to be clinically excluded for which follow-up chest exam is recommended to demonstrate complete clearing. Mild right greater than left pleural effusions and atelectasis/scarring noted. Electronically Signed: Ricardo Lacey, at 12:06 EDT Tel , Service support , Laboratory Results 06/18/17 04:00: WBC 13.7 H, RBC 3.36 L, Hgb 10.3 L, Hct 30.8 L, MCV 91.7, MCH 30.7, MCHC 33.4, RDW 14.3, RDW Differential 46.5 H, Plt Count 263, MPV 10.7, Immature Gran % (Auto) 0.300, Neut % (Auto) 82.3 H, Lymph % (Auto) 6.8 L, [place] % (Auto) 10.1 H, Eos % (Auto) 0.4, Baso % (Auto) 0.1, Absolute Neuts (auto) 11.3 H, Absolute Lymphs (auto) 0.93, Total Counted Not Reportable 06/18/17 04:00: Hemoglobin A1c 11.8 H 06/18/17 04:00: Sodium 139, Potassium 3.8, Chloride 105, Carbon Dioxide 28.0, Anion Gap 6, BUN 32 H, Creatinine 1.05 H, Estim Creat Clear Calc 33.39, Est GFR (MDRD) Af Amer 65, Est GFR (MDRD) Non-Af 54 L, BUN/Creatinine Ratio 30.5 H, Glucose 119 H, Calcium 8.3 L 06/18/17 06:31: POC Glucose 168 H 06/18/17 08:10: POC Glucose 233 H 06/18/17 11:25: POC Glucose 245 H 06/18/17 15:15: Sodium 135 L, Potassium 4.1, Chloride 101, Carbon Dioxide 26.0, Anion Gap 8, BUN 32 H, Creatinine 1.07 H, Estim Creat Clear Calc 33.17, Est GFR (MDRD) Af Amer 63, Est GFR (MDRD) Non-Af 52 L, BUN/Creatinine Ratio 29.9 H, Glucose 337 H, Calcium 8.3 L [] Code Visit Inpatient E&M: 80143 Subs Hosp L3
--- NOTE | 2017-06-18 09:04 | PN_ITS ---
Patient Problems: Active and Suspected Problems (Last Updated 06/11/17 @ 17:02 by ELLIOT Moore) DKA (diabetic ketoacidoses) (Acute) Subjective: Patient insulin drip discontinued after anion gap patient feels mild short of breath, bicarb was normal. Patient feels mild short of breath but that is from the beginning of admission. Discontinue IV fluid. Patient is having breakfast. Blood pressure is high 179/114. No fever blood sugar is controlled. Vitals/I&O's: Vital Signs Temp Pulse Resp BP Pulse Ox 98.2 F 65 12 127/56 H 98 06/18/17 06:00 06/18/17 06:00 06/18/17 06:00 06/18/17 06:00 06/18/17 06:00 Oxygen Flow Rate (L/min) 2 Oxygen Delivery Method Nasal Cannula Weight: 112 lb 10.499 oz Body Mass Index (BMI) 19.9 Finger Stick Blood Glucose 124 Intake and Output for Last 24 Hours 06/16/17 06/17/17 06/18/17 23:59 23:59 23:59 Intake Total 2412.6 / 2412.6 493.9 / 493.9 Output Total 800 / 800 100 / 100 Balance 1612.6 / 1612.6 393.9 / 393.9 General: Alert, Oriented x3, Cooperative, Lethargic HEENT: Atraumatic, PERRLA, EOMI, Normocephalic Neck: Supple, No JVD, Negative Carotid Bruits Lungs: No rhonchi, No wheeze, Diminished - Right posterior half WITH dull percussion suggestive of possible pleural effusion Cardiovascular: Regular rate, Regular Rhythm, Normal S1, Normal S2, No murmurs Abdomen: Bowel Sounds Present, Soft, Non Tender, Non-Distended Extremities: Capillary Refill Less than 3 Seconds, Edema Skin: No rashes, No breakdown Musculoskeletal: No Tenderness to Palpation of Joints or Extremities Neurological: Cranial nerves II-XII grossly intact Psych/Mental Status: Normal Affect, Appropriate Laboratory Results 06/17/17 10:27: POC Glucose > 500 H* 06/17/17 11:00: MRSA (PCR) Negative 06/17/17 11:01: POC Glucose 494 H* 06/17/17 11:39: Specimen Type ART, Sample Site R Radial, pH 7.25 L, Bicarbonate Actual 13.4 L, POC Total CO2 14, Base Excess -14 L, O2 Saturation 93 L, ABG pCO2 30.8 L, ABG pO2 75, Andres Test POS, O2 Delivery Device Room Air, Blood Gas Notified Whom LIOR AGUILERA, Blood Gas Notified Time 1140 06/17/17 12:05: POC Glucose 429 H 06/17/17 13:08: POC Glucose 398 H 06/17/17 13:10: Sodium 136, Potassium 4.1, Chloride 101, Carbon Dioxide 18.0 L, Anion Gap 17 H, BUN 42 H, Creatinine 1.36 H, Estim Creat Clear Calc 25.78, Est GFR (MDRD) Af Amer 48 L, Est GFR (MDRD) Non-Af 40 L, BUN/Creatinine Ratio 30.9 H , Glucose 404 H, Calcium 8.1 L, Total Bilirubin 0.50, Direct Bilirubin 0.18, AST 66 H, ALT 56, Alkaline Phosphatase 340 H, Total Protein 6.7, Albumin 3.1 L, Globulin 3.6 06/17/17 13:10: Troponin I 0.02 06/17/17 14:02: POC Glucose 332 H 06/17/17 15:10: POC Glucose 379 H 06/17/17 16:01: POC Glucose 306 H 06/17/17 16:58: POC Glucose 254 H 06/17/17 17:20: Acetone Level SMALL H 06/17/17 17:20: Troponin I 0.22 H 06/17/17 17:20: Sodium 139, Potassium 4.3, Chloride 105, Carbon Dioxide 22.0, Anion Gap 12, BUN 37 H, Creatinine 1.30 H, Estim Creat Clear Calc 26.97, Est GFR (MDRD) Af Amer 51 L, Est GFR (MDRD) Non-Af 42 L, BUN/Creatinine Ratio 28.5 H , Glucose 259 H, Calcium 8.1 L 06/17/17 18:35: POC Glucose 241 H 06/17/17 19:34: POC Glucose 236 H 06/17/17 20:37: POC Glucose 234 H 06/17/17 21:00: Troponin I 0.21 H 06/17/17 21:00: Sodium 138, Potassium 4.3, Chloride 103, Carbon Dioxide 27.0, Anion Gap 8, BUN 34 H, Creatinine 1.25 H, Estim Creat Clear Calc 28.05, Est GFR (MDRD) Af Amer 53 L, Est GFR (MDRD) Non-Af 44 L, BUN/Creatinine Ratio 27.2 H, Glucose 253 H, Calcium 8.3 L 06/17/17 21:53: POC Glucose 261 H 06/17/17 22:28: POC Glucose 263 H 06/17/17 23:29: POC Glucose 219 H 06/18/17 00:20: Sodium 139, Potassium 4.1, Chloride 105, Carbon Dioxide 26.0, Anion Gap 8, BUN 34 H, Creatinine 1.09 H, Estim Creat Clear Calc 32.17, Est GFR (MDRD) Af Amer 62, Est GFR (MDRD) Non-Af 51 L, BUN/Creatinine Ratio 31.2 H, Glucose 219 H, Calcium 8.1 L 06/18/17 00:35: POC Glucose 228 H 06/18/17 01:39: POC Glucose 192 H 06/18/17 02:36: POC Glucose 155 H 06/18/17 03:57: POC Glucose 127 H 06/18/17 04:00: WBC 13.7 H, RBC 3.36 L, Hgb 10.3 L, Hct 30.8 L, MCV 91.7, MCH 30.7, MCHC 33.4, RDW 14.3, RDW Differential 46.5 H, Plt Count 263, MPV 10.7, Immature Gran % (Auto) 0.300, Neut % (Auto) 82.3 H, Lymph % (Auto) 6.8 L, Galax % (Auto) 10.1 H, Eos % (Auto) 0.4, Baso % (Auto) 0.1, Absolute Neuts (auto) 11.3 H, Absolute Lymphs (auto) 0.93, Total Counted Not Reportable 06/18/17 04:00: Hemoglobin A1c 11.8 H 06/18/17 04:00: Sodium 139, Potassium 3.8, Chloride 105, Carbon Dioxide 28.0, Anion Gap 6, BUN 32 H, Creatinine 1.05 H, Estim Creat Clear Calc 33.39, Est GFR (MDRD) Af Amer 65, Est GFR (MDRD) Non-Af 54 L, BUN/Creatinine Ratio 30.5 H, Glucose 119 H, Calcium 8.3 L 06/18/17 06:31: POC Glucose 168 H 06/18/17 08:10: POC Glucose 233 H Current Medications Amiodarone HCl (Cordarone) 200 mg PO DAILY [facility] Apixaban (Eliquis) 2.5 mg PO BID [facility] Last Admin: 06/17/17 21:31 Dose: 2.5 mg Aspirin (Aspirin, Baby) 81 mg PO DAILY@0800 [facility] Carvedilol (Coreg) 6.25 mg PO BID [facility] Last Admin: 06/17/17 21:30 Dose: 6.25 mg Dextrose (D50w Syringe) 0 gm IV X1 PRN; Protocol PRN Reason: HYPOGLYCEMIA Glucagon () 1 mg IM .X1 PRN PRN Reason: Hypoglycemia Sodium Chloride () 1,000 mls @ 100 mls/hr IV .Q10H [facility] Last Admin: 06/17/17 23:33 Dose: 100 mls/hr Insulin Aspart (Novolog Flexpen (Bkc)) 3 units SC TIDAC [facility] Insulin Aspart (Novolog Flexpen (Bkc)) 0 units SC ACHS THUAN PRN Reason: Protocol Insulin Detemir (Levemir (Bkc)) 10 units SC BID [facility] Sodium Chloride () 5 - 30 ml IV UD PRN PRN Reason: SALINE FLUSH Last Admin: 06/17/17 21:31 Dose: 10 ml Sodium Chloride ([place] Nasal Mineral) 2 spray NASAL Q4H PRN PRN PRN Reason: NASAL DRYNESS Medical Necessity - Tobacco Use Smoking Status: Former smoker Assessment/Plan Active and Suspected Problems (Last Updated 06/11/17 @ 17:02 by ELLIOT Moore) DKA (diabetic ketoacidoses) (Acute) The patient is a 81 year old F with history of type 1 diabetes mellitus, right heart failure, valvular heart disease and paroxysmal A. fib on amiodarone and apixaban came to ER with dehydration, generalized weakness and tiredness for last 4 days. Patient was on heavy dose of Lasix 40 mg twice daily which was decreased to 20 mg twice daily on Wednesday by Dr. Hong. In ED, her blood sugar was found more than 600, K5.3, creatinine 1.48, BUN 49, bicarb 18 with anion gap 20. Chest x-ray suggestive of severe COPD without acute disease. 1. DKA with history of type 1 diabetes mellitus, exact etiology unclear probably from over diuresis from Lasix: The patient was being admitted in the ICU as per DKA protocol. Was managed with IV fluid rehydration, frequent BMP monitoring and acetone. ABG shows 7.25/PCO2 30/PO2 75 on room air. DKA resolved with closed anion gap. IV insulin drip discontinued and changed to Accu-Chek before meals and at bedtime and cover with NovoLog sliding scale. Patient is on Levemir 10 units subcutaneous twice daily and scheduled NovoLog insulin 3 units 3 times daily with meals. Pulmonary venous congestion secondary to congestive heart failure from fluid overload: Patient seems mild shortness of breath. Repeat chest x-ray done which shows small effusion in the right CP angle with cephalization of bronchovascular markings in the upper lobes. No change in mediastinum or jarrell. Lasix 40 mg daily. Watch intake/output and titrate Lasix according to fluid balance. 2. Paroxysmal A. fib on amiodarone and Eliquis: Continue amiodarone and Eliquis. Patient had mild epistaxis most probably from dry nose. Saline nasal spray every 4 hourly. No more episode of epistaxis. 3. Recent admission with bilateral lower extremity DVT on Eliquis. She was discharged on 04/22/2017. 4. Right-sided heart failure with valvular heart disease: As per the last echo in March 2017, EF 55% with normal left ventricle size with mild global hypokinesis. Mild to moderate posteriorly directed MR, mild diffuse mitral valve thickening, mild TR, RVSP 37 mmHg, so history of mild pulmonary hypertension. Mild focal aortic wall thickening with calcification. 4. Dyslipidemia and hypertension: Hold antihypertensive medication. DVT prophylaxis on Eliquis. Clinical Impression(s) from Imaging Studies Chest X-Ray 06/17/17 08:43 IMPRESSION: Severe appearing COPD without active cardiopulmonary disease identified. Moderate aortic knob calcification. Electronically Signed: Ricardo Lacey, at 10:00 EDT Tel , Service support , Chest X-Ray 06/18/17 08:48 IMPRESSION: Moderate CHF/fluid overload with interstitial edema. Superimposed pneumonia to be clinically excluded for which follow-up chest exam is recommended to demonstrate complete clearing. Mild right greater than left pleural effusions and atelectasis/scarring noted. Electronically Signed: Ricardo Lacey, at 12:06 EDT Tel , Service support , Laboratory Results 06/18/17 04:00: WBC 13.7 H, RBC 3.36 L, Hgb 10.3 L, Hct 30.8 L, MCV 91.7, MCH 30.7, MCHC 33.4, RDW 14.3, RDW Differential 46.5 H, Plt Count 263, MPV 10.7, Immature Gran % (Auto) 0.300, Neut % (Auto) 82.3 H, Lymph % (Auto) 6.8 L, [place] % (Auto) 10.1 H, Eos % (Auto) 0.4, Baso % (Auto) 0.1, Absolute Neuts (auto) 11.3 H, Absolute Lymphs (auto) 0.93, Total Counted Not Reportable 06/18/17 04:00: Hemoglobin A1c 11.8 H 06/18/17 04:00: Sodium 139, Potassium 3.8, Chloride 105, Carbon Dioxide 28.0, Anion Gap 6, BUN 32 H, Creatinine 1.05 H, Estim Creat Clear Calc 33.39, Est GFR (MDRD) Af Amer 65, Est GFR (MDRD) Non-Af 54 L, BUN/Creatinine Ratio 30.5 H, Glucose 119 H, Calcium 8.3 L 06/18/17 06:31: POC Glucose 168 H 06/18/17 08:10: POC Glucose 233 H 06/18/17 11:25: POC Glucose 245 H 06/18/17 15:15: Sodium 135 L, Potassium 4.1, Chloride 101, Carbon Dioxide 26.0, Anion Gap 8, BUN 32 H, Creatinine 1.07 H, Estim Creat Clear Calc 33.17, Est GFR (MDRD) Af Amer 63, Est GFR (MDRD) Non-Af 52 L, BUN/Creatinine Ratio 29.9 H, Glucose 337 H, Calcium 8.3 L [] Code Visit Inpatient E&M: 63208 Subs Hosp L3
[2017-06-18] MEDS: Aspirin 81 MG TAB.CHEW PO (09:05)
[2017-06-18] MEDS: Amiodarone 200 MG Tablet PO (09:05)
[2017-06-18] MEDS: APIXABAN 2.5 MG TABLET PO ×2 (09:06→21:39)
[2017-06-18] MEDS: Furosemide 40 MG/4 ML Vial IV (10:19)
[2017-06-18] MEDS: 0.9% NaCl Peripheral Flush Adult/Peds IV ×2 (10:20→11:27)
[2017-06-18] MEDS: Carvedilol 6.25 MG Tablet PO ×2 (11:26→21:39)
[2017-06-18] MEDS: Metoclopramide 10 MG/2 ML Vial 5 MG IV (11:26)
[2017-06-18] MEDS: NYSTATIN 500,000 UNIT/5 ML UDC 500000 UNIT PO ×4 (11:40→21:41)
[2017-06-18 11:56] LABS: Bedside Glucose 245 mg/dL (70-110)
--- NOTE | 2017-06-18 13:35 | CASEMGMT ---
CM Assessment: See Link DC Plan: Home. Patient is assigned PCP, Shakir Sams, but has never initiated care with him. Patient's daughter, Veronica, states the patient never went to PCPs in the past. The patient sees ADRIEN Burch, endocrinology, and Hal, cardiology. The patient is seen by [facility]. Veronica states they were planning to discontinue the care but would now like to continue this program. Hesham, from [facility], notified by email. The patient does not use DME, home oxygen, or home health. Per daughter, she has all diabetes supplies needed. CM will continue to follow for safe discharge planning.
[2017-06-18] MEDS: Glucerna Shake 120 ML LIQUID PO ×2 (14:48→16:51)
[2017-06-18 15:37] LABS: Anion Gap 8 (5-15); BUN 32 mg/dL (7-18); BUN/Creat Ratio 29.9 RATIO (10-20); Calcium,Total 8.3 mg/dL (8.5-10.1); Chloride 101 mmol/L (98-107); Creatinine, Serum 1.07 mg/dL (0.55-1.02); EST Glomerular Filtration Rate 52 mL/min (>60); Est Glom Filt Rate - Afr Amer 63 mL/min (>60); Estimated Creatinine Clearance 33.17 ml/min; Glucose 337 mg/dL (74-106); Potassium 4.1 mmol/L (3.5-5.1); Sodium Level 135 mmol/L (136-145)
[2017-06-18] MEDS: Metoclopramide 10 MG/10 ML UDC 5 MG PO (16:51)
[2017-06-18 17:00] LABS: Bedside Glucose 296 mg/dL (70-110)
[2017-06-18 23:30] LABS: Bedside Glucose 259 mg/dL (70-110)
[2017-06-19] VITALS (15 sets, daily range): BP systolic 107–153; BP diastolic 55–83; PULSE 70–80; RESP 16–20; TEMP 36.7–37.9; O2SAT 92–94
--- NOTE | 2017-06-19 04:45 | NURSING ---
Entered pt. room and observed pt. L eye edematous and erythema on eyelid. Pt. states she did not bump eye or have previous fall. Pt. unable to open eye as it is too swollen. Dr. Newell notified and came to see pt. Orders entered. He feels it is cellulitis. Pt. also c/o nausea and back pain at this time.
--- NOTE | 2017-06-19 05:33 | NURSING ---
Pt. going off unit for lumbar xray.
--- NOTE | 2017-06-19 05:45 | RAD_ITS ---
STUDY: X-RAY - LUMBAR SPINE REASON FOR EXAM: Female, 81 years old. Back pain TECHNIQUE: 3 view(s) of the lumbar spine were obtained. COMPARISON: None FINDINGS: There is a mild lumbar scoliosis with convexity to the left. There are no acute fractures or dislocations. Degenerative changes at L2-3 and L4-5 disc spaces. These areas are demonstrated about disc space narrowing and small marginal osteophytes. The pedicles are intact. RAD/Lumbar Spine 2 or 3 Views IMPRESSION: No fractures. 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 A mild lumbar scoliosis with convexity to the left Electronically Signed: Luis Laguna, at 6:41 EDT Tel , Service support ,
[2017-06-19] MEDS: Ondansetron 4 MG/2 ML Vial IV ×2 (06:14→12:39)
[2017-06-19] MEDS: Morphine 2 MG/ML Syringe IV (06:14)
[2017-06-19] MEDS: 0.9% NaCl Peripheral Flush Adult/Peds IV ×2 (06:15→21:51)
[2017-06-19 06:56] LABS: Bedside Glucose 198 mg/dL (70-110)
--- NOTE | 2017-06-19 07:43 | NURSING ---
patient placed in contact isolation precautions due to her left eye redness, swelling, and yellow purulent crusty drainage.
[2017-06-19] MEDS: Metoclopramide 10 MG/10 ML UDC 5 MG PO (08:34)
[2017-06-19] MEDS: NYSTATIN 500,000 UNIT/5 ML UDC 500000 UNIT PO ×3 (08:36→16:59)
[2017-06-19] MEDS: Carvedilol 6.25 MG Tablet PO (08:36)
[2017-06-19] MEDS: Amiodarone 200 MG Tablet PO (08:36)
[2017-06-19] MEDS: Glucerna Shake 120 ML LIQUID PO (08:36)
[2017-06-19] MEDS: Furosemide 40 MG/4 ML Vial IV (08:36)
[2017-06-19] MEDS: Aspirin 81 MG TAB.CHEW PO (08:36)
[2017-06-19] MEDS: APIXABAN 2.5 MG TABLET PO (08:37)
--- NOTE | 2017-06-19 09:18 | RAD_ITS ---
STUDY: X-RAY - ABDOMEN/PELVIS REASON FOR EXAM: Female, 81 years old. Shortness of breath. Lethargy. TECHNIQUE: AP supine and decubitus views of the abdomen and pelvis. COMPARISON: None. FINDINGS: Bilateral lower lung opacities. There are mildly dilated loops of air and fluid-filled small bowel in the left side. There is moderate stool. There is no demonstrated free abdominal air. There are pelvic calcifications. Mild degenerative change of the spine and sacroiliac joints RAD/Abd Inc Decub and/or Erect IMPRESSION: Small bowel distention with ileus or partial obstruction. Bilateral lower lung infiltrates or edema. Electronically Signed: Barrett Rowland MD at 14:48 EDT , Service support ,
--- NOTE | 2017-06-19 09:19 | CT_ITS ---
STUDY: CT BRAIN WITHOUT CONTRAST REASON FOR EXAM: Female, 81 years old. CONFUSION, LEFT EYE INFECTION RADIATION DOSAGE (If Supplied By Facility): CTDIvol = ( 44.99 ) mGy, DLP = ( 796.11 ) mGycm TECHNIQUE: Transaxial CT imaging of the brain was performed without administration of intravenous contrast material. Individualized dose optimization techniques were used for this CT. COMPARISON: None. FINDINGS: There is cerebral atrophy with widening of the extra-axial spaces and ventricular dilatation. There are areas of decreased attenuation within the white matter tracts of the supratentorial brain, consistent with microvascular disease changes. There is no intracranial hemorrhage. There are no findings of an acute ischemic infarction. There is left periorbital soft tissue swelling. There is no postseptal infiltration or fluid collections. There is mucoperiosteal inflammatory disease of the paranasal sinuses consistent with mild chronic sinusitis. CT/Brain/Head without Contrast IMPRESSION: Left periorbital cellulitis. No acute intracranial abnormality. If clinical suspicion persists for intracranial abnormality MRI can be obtained. Electronically Signed: Kateryna Green MD at 10:35 EDT Tel , Service support ,
--- NOTE | 2017-06-19 09:25 | PN_ITS ---
Patient Problems: Active and Suspected Problems (Last Updated 06/11/17 @ 17:02 by ELLIOT Moore) DKA (diabetic ketoacidoses) (Acute) Subjective: The patient was seen in the morning and found lethargic and is falling asleep while talking. Her left eye is swollen along orbital region. Patient had vomiting. Labs ordered. Since patient has sepsis secondary to left orbital cellulitis. CT ordered. discussed with the fuel cell test engineer. Patient again seen in the afternoon and talked with her daughter and updated the clinical course. Vitals/I&O's: Vital Signs Temp Pulse Resp BP Pulse Ox 98.0 F 80 18 137/62 H 92 06/19/17 09:06 06/19/17 09:06 06/19/17 09:06 06/19/17 09:06 06/19/17 09:06 Oxygen Flow Rate (L/min) 2 Oxygen Delivery Method Nasal Cannula Weight: 112 lb 10.499 oz Body Mass Index (BMI) 19.9 Finger Stick Blood Glucose 124 Intake and Output for Last 24 Hours 06/17/17 06/18/17 06/19/17 23:59 23:59 23:59 Intake Total 2412.6 / 2412.6 2005.9 / 2005.9 50 / 50 Output Total 800 / 800 2200 / 2200 0 / 0 Balance 1612.6 / 1612.6 -194.1 / -194.1 50 / 50 General: Confused, Lethargic HEENT: Atraumatic, PERRLA, EOMI, Normocephalic, - - Erythema, tenderness long left orbital region. Eyelashes are still together. Purulent discharge. Suggestive of left orbital cellulitis. Oral: Dry Mucosa Neck: Supple, No JVD, Negative Carotid Bruits Lungs: Clear to auscultation, No rhonchi, No wheeze, No rales, Diminished Cardiovascular: Regular rate, Regular Rhythm, Normal S1, Normal S2, No murmurs Abdomen: Bowel Sounds Present, Soft, Non Tender, Hypoactive Bowel Sounds, Distended Extremities: No edema, Capillary Refill Less than 3 Seconds Skin: No rashes, No breakdown Musculoskeletal: No Tenderness to Palpation of Joints or Extremities, Arthritic Changes Neurological: Cranial nerves II-XII grossly intact Psych/Mental Status: Normal Affect, Appropriate Laboratory Results 06/18/17 11:25: POC Glucose 245 H 06/18/17 15:15: Sodium 135 L, Potassium 4.1, Chloride 101, Carbon Dioxide 26.0, Anion Gap 8, BUN 32 H, Creatinine 1.07 H, Estim Creat Clear Calc 33.17, Est GFR (MDRD) Af Amer 63, Est GFR (MDRD) Non-Af 52 L, BUN/Creatinine Ratio 29.9 H, Glucose 337 H, Calcium 8.3 L 06/18/17 16:44: POC Glucose 296 H 06/18/17 21:43: POC Glucose 259 H 06/19/17 05:31: POC Glucose 198 H Current Medications Amiodarone HCl (Cordarone) 200 mg PO DAILY [facility] Last Admin: 06/19/17 08:36 Dose: 200 mg Apixaban (Eliquis) 2.5 mg PO BID [facility] Last Admin: 06/19/17 08:37 Dose: 2.5 mg Aspirin (Aspirin, Baby) 81 mg PO DAILY@0800 [facility] Last Admin: 06/19/17 08:36 Dose: 81 mg Carvedilol (Coreg) 6.25 mg PO BID [facility] Last Admin: 06/19/17 08:36 Dose: 6.25 mg Dextrose (D50w Syringe) 0 gm IV X1 PRN; Protocol PRN Reason: HYPOGLYCEMIA Furosemide (Lasix) 40 mg IV DAILY [facility] Last Admin: 06/19/17 08:36 Dose: 40 mg Glucagon () 1 mg IM .X1 PRN PRN Reason: Hypoglycemia Ceftriaxone Sodium (Rocephin) 1 gm in 50 mls @ 100 mls/hr IV Q24 [facility] Piperacillin Sod/Tazobactam Sod (Zosyn) 3.375 gm in 50 mls @ 12.5 mls/hr IV Q8 [facility] Insulin Aspart (Novolog Flexpen (Bkc)) 0 units SC ACHS [facility] PRN Reason: Protocol Last Admin: 06/19/17 08:33 Dose: 2 u Insulin Aspart (Novolog Flexpen (Bkc)) 8 units SC TIDAC [facility] Last Admin: 06/19/17 08:33 Dose: 8 units Insulin Detemir (Levemir (Bkc)) 10 units SC BID [facility] Last Admin: 06/19/17 08:35 Dose: 10 u Metoclopramide HCl (Reglan) 5 mg PO TIDAC [facility] Last Admin: 06/19/17 08:34 Dose: 5 mg Morphine Sulfate () 2 mg IV Q2H PRN PRN PRN Reason: SEVERE PAIN (6-10/10) Last Admin: 06/19/17 06:14 Dose: 2 mg Neomycin/Polymyxin/Bacitracin (Neosporin) 1 applic EACH EYE Q4HWA [facility] Nutritional Formula (Lactose Free) (Glucerna Shake) 120 ml PO 4X/DAY THUAN Last Admin: 06/19/17 08:36 Dose: 120 mls Nystatin (Nystatin) 500,000 unit PO 4X/DAY THUAN Last Admin: 06/19/17 08:36 Dose: 500,000 unit Ondansetron HCl (Zofran) 4 mg IV Q4H PRN PRN PRN Reason: NAUSEA Last Admin: 06/19/17 06:14 Dose: 4 mg Sodium Chloride () 5 - 30 ml IV UD PRN PRN Reason: SALINE FLUSH Last Admin: 06/19/17 06:15 Dose: 10 ml Sodium Chloride ([place] Nasal [place]) 2 spray NASAL Q4H PRN PRN PRN Reason: NASAL DRYNESS Sodium Chloride () 5 - 30 ml IV UD PRN PRN Reason: SALINE FLUSH Medical Necessity - Tobacco Use Smoking Status: Former smoker Assessment/Plan Active and Suspected Problems (Last Updated 06/11/17 @ 17:02 by ELLIOT Moore) DKA (diabetic ketoacidoses) (Acute) The patient is a 81 year old F with history of type 1 diabetes mellitus, right heart failure, valvular heart disease and paroxysmal A. fib on amiodarone and apixaban came to ER with dehydration, generalized weakness and tiredness for last 4 days. Patient was on heavy dose of Lasix 40 mg twice daily which was decreased to 20 mg twice daily on Wednesday by Dr. Hong. In ED, her blood sugar was found more than 600, K5.3, creatinine 1.48, BUN 49, bicarb 18 with anion gap 20. Chest x-ray suggestive of severe COPD without acute disease. Initially the patient was in ICU for DKA and then transferred to the floor. She had fluid overload with CHF exacerbation and then sepsis due to left orbital cellulitis. 1. Sepsis (mild fever with lactic acidosis) possible to left preseptal orbital cellulitis: Patient has erythema, tenderness long left orbital region. Eyelashes are still together. Purulent discharge. Suggestive of left orbital cellulitis. Sepsis workup ordered including blood culture and urine culture. CT head ordered. Discussed with Dr. Rafael Hoskins with fuel cell test engineer and agree with the plan of neomycin ointment and systemic IV Zosyn broad-spectrum antibiotic. Lactic acid is elevated 2.3 and then 2.7. ID is not available until Wednesday. On further discussion with the fuel cell test engineer who saw her about 4-5 years ago for diabetic retinopathy status post laser therapy said he will follow up tomorrow. MRSA nasal screen negative. 2. Pulmonary venous congestion secondary to congestive heart failure from fluid overload: Patient seems mild shortness of breath. Repeat chest x-ray done which shows small effusion in the right CP angle with cephalization of bronchovascular markings in the upper lobes suggestive of moderate CHF with interstitial edema. No change in mediastinum or jarrell. Lasix 40 mg daily. The patient had 2200 mL urine output and -194 mL negative fluid balance. Repeat chest x-ray shows worsening infiltrates or edema and bilateral pleural effusion, 3 DKA with history of type 1 diabetes mellitus, exact etiology unclear probably from over diuresis from Lasix: The patient was being admitted in the ICU as per DKA protocol. Was managed with IV fluid rehydration, frequent BMP monitoring and acetone. ABG shows 7.25/PCO2 30/PO2 75 on room air. DKA resolved with closed anion gap. IV insulin drip discontinued and changed to Accu-Chek before meals and at bedtime and cover with NovoLog sliding scale. Patient is on Levemir 10 units subcutaneous twice daily and scheduled NovoLog insulin 3 units 3 times daily with meals. 4. Mild abdominal distention probably due to constipation: Patient further said she did not had good bowel movement for last 7 days. Abdominal x-ray ordered. 5. . Paroxysmal A. fib on amiodarone and Eliquis: Continue amiodarone and Eliquis. Patient had mild epistaxis most probably from dry nose. Saline nasal spray every 4 hourly. No more episode of epistaxis. 6. Recent admission with bilateral lower extremity DVT on Eliquis. She was discharged on 04/22/2017. 7. Right-sided heart failure with valvular heart disease: As per the last echo in March 2017, EF 55% with normal left ventricle size with mild global hypokinesis. Mild to moderate posteriorly directed MR, mild diffuse mitral valve thickening, mild TR, RVSP 37 mmHg, so history of mild pulmonary hypertension. Mild focal aortic wall thickening with calcification. 8 Dyslipidemia and hypertension: Hold antihypertensive medication. DVT prophylaxis on Eliquis. Left orbital cellulitis course discussed with the patient's daughter. she was told that if orbital cellulitis does not improve by tomorrow, will need to transfer to tertiary care center. Laboratory Results 06/18/17 16:44: POC Glucose 296 H 06/18/17 21:43: POC Glucose 259 H 06/19/17 05:31: POC Glucose 198 H 06/19/17 09:37: WBC 14.4 H, RBC 3.65 L, Hgb 11.0 L, Hct 34.3 L, MCV 94.0, MCH 30.1, MCHC 32.1, RDW 14.4, RDW Differential 49.2 H, Plt Count 245, MPV 10.7, Immature Gran % (Auto) 0.200, Neut % (Auto) 91.9 H, Lymph % (Auto) 3.5 L, [place] % (Auto) 4.2, Eos % (Auto) 0.1, Baso % (Auto) 0.1, Absolute Neuts (auto) 13.2 H , Absolute Lymphs (auto) 0.51 L, Total Counted Not Reportable, Differential Comment SCANNED 06/19/17 09:37: Sodium 134 L, Potassium 3.8, Chloride 99, Carbon Dioxide 27.0, Anion Gap 8, BUN 22 H, Creatinine 0.92, Estim Creat Clear Calc 38.57, Est GFR ( MDRD) Af Amer 76, Est GFR (MDRD) Non-Af 63, BUN/Creatinine Ratio 24.0 H, Glucose 190 H, Calcium 8.5, Total Bilirubin 0.40, AST 114 H, ALT 71 H, Alkaline Phosphatase 349 H, C-React Prot Ext Range 36.20 H, Total Protein 6.7, Albumin 2.8 L, Globulin 3.9, Albumin/Globulin Ratio 0.7 L 06/19/17 09:37: Lactic Acid 2.3 H 06/19/17 09:37: Sodium Cancelled, Potassium Cancelled, Chloride Cancelled, Carbon Dioxide Cancelled, Anion Gap Cancelled, BUN Cancelled, Creatinine Cancelled, Estim Creat Clear Calc Cancelled, Est GFR (MDRD) Af Amer Cancelled, Est GFR (MDRD) Non-Af Cancelled, BUN/Creatinine Ratio Cancelled, Glucose Cancelled, Calcium Cancelled, Total Bilirubin Cancelled, C-React Prot Ext Range Cancelled 06/19/17 11:05: PT 15.5 H, INR 1.2, APTT 26.5 06/19/17 11:23: POC Glucose 127 H 06/19/17 14:05: Lactic Acid 2.7 H Clinical Impression(s) from Imaging Studies Chest X-Ray 06/17/17 08:43 IMPRESSION: Severe appearing COPD without active cardiopulmonary disease identified. Moderate aortic knob calcification. Electronically Signed: Ricardo Lacey, at 10:00 EDT Tel , Service support , Chest X-Ray 06/18/17 08:48 IMPRESSION: Moderate CHF/fluid overload with interstitial edema. Superimposed pneumonia to be clinically excluded for which follow-up chest exam is recommended to demonstrate complete clearing. Mild right greater than left pleural effusions and atelectasis/scarring noted. Electronically Signed: Ricardo Lacey at 12:06 EDT Tel , Service support , Lumbar Spine X-Ray 06/19/17 05:45 IMPRESSION: No fractures. 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 A mild lumbar scoliosis with convexity to the left Electronically Signed: Luis Laguna, at 6:41 EDT Tel , Service support , Abdomen X-Ray 06/19/17 09:18 IMPRESSION: Small bowel distention with ileus or partial obstruction. Bilateral lower lung infiltrates or edema. Electronically Signed: Barrett Rowland MD at 14:48 EDT , Service support , Brain CT 06/19/17 09:19 IMPRESSION: Left periorbital cellulitis. No acute intracranial abnormality. If clinical suspicion persists for intracranial abnormality MRI can be obtained. Electronically Signed: Kateryna Green MD at 10:35 EDT Tel , Service support , Chest X-Ray 06/19/17 10:25 IMPRESSION: Worsening infiltrates or edema and pleural effusions. Electronically Signed: Barrett Rowland MD at 15:07 EDT , Service support , Code Visit Inpatient E&M: 26889 Subs Hosp L3
[2017-06-19 10:08] LABS: Absolute Lymphocyte Count 0.51 X10^3/ul (0.83-4.51); Absolute Neutrophil Count 13.2 X10^3/uL (2.0-7.7); Basophil# 0.01 X10^3/uL; Basophil% 0.1 % (0-1); Eosinophil# 0.01 X10^3/uL; Eosinophils% 0.1 % (0-5); Hematocrit 34.3 % (37-47); Lymphocyte # 0.51 X10^3/ul (4.0); Lymphocyte % 3.5 % (19-41); Mean Corp Hgb Conc 32.1 g/gl (32-36); Mean Corpuscular Hgb 30.1 pg (27.0-32.0); Mean Platelet Vol. 10.7 fl (6.2-12.0); Monocyte# 0.61 X10^3/uL; Monocyte% 4.2 % (0-10); Neutrophil % 91.9 % (47-70); Platelet Count 245 K/mm3 (150-450); RBC Distribution Width CV 14.4 % (11.6-14.6); RBC Distribution Width SD 49.2 fl (35.1-43.9); Red Blood Count 3.65 M/mm3 (4.2-5.4); White Blood Count 14.4 K/mm3 (4.4-11.0)
[2017-06-19 10:09] LABS: Differential Indicated SCAN CRITERIA MET; POSITIVE COUNT NO; POSITIVE DIFFERENTIAL YES; POSITIVE MORPHOLOGY NO
[2017-06-19 10:19] LABS: ALB/GLOB Ratio 0.7 RATIO (0.9-2.4); AST(SGOT) 114 U/L (15-37); Alanine Aminotransfer ALT/SGPT 71 U/L (13-56); Albumin, Serum 2.8 g/dL (3.2-5.0); Alkaline Phosphatase 349 U/L (45-117); Anion Gap 8 (5-15); BUN 22 mg/dL (7-18); Calcium,Total 8.5 mg/dL (8.5-10.1); Chloride 99 mmol/L (98-107); Creatinine, Serum 0.92 mg/dL (0.55-1.02); EST Glomerular Filtration Rate 63 mL/min (>60); Est Glom Filt Rate - Afr Amer 76 mL/min (>60); Estimated Creatinine Clearance 38.57 ml/min; Globulin 3.9 g/dL (2.2-4.2); Glucose 190 mg/dL (74-106); Potassium 3.8 mmol/L (3.5-5.1); Protein, Total 6.7 g/dL (6.4-8.2); Sodium Level 134 mmol/L (136-145)
[2017-06-19 10:23] LABS: Lactic Acid 2.3 mmol/L (0.4-2.0)
--- NOTE | 2017-06-19 10:25 | RAD_ITS ---
STUDY: X-RAY CHEST REASON FOR EXAM: Female, 81 years old. Shortness of breath. TECHNIQUE: Frontal and lateral views of the chest. COMPARISON: June 18, 2017. FINDINGS: There are monitoring devices. There is worsening perihilar and lower lung consolidation. There is small pleural effusions. Normal size heart. Normal mediastinum and jarrell. Normal visualized pulmonary arteries. There is atherosclerotic calcification of the aortic arch with tortuosity. Normal visualized thoracic spine. Normal visualized ribs, clavicles, and shoulders. There is no demonstrated abnormality of the visualized soft tissue structures of the upper abdomen. RAD/Chest PA and Lateral IMPRESSION: Worsening infiltrates or edema and pleural effusions. Electronically Signed: Barrett Rowland MD at 15:07 EDT , Service support ,
[2017-06-19 10:40] LABS: Differential Comment SCANNED
[2017-06-19] MEDS: Ceftriaxone 1 GM/50 ML BAG IV (11:05)
[2017-06-19] MEDS: Neomycin/Bacitracin/Polymyxin Opth. Ointment 1 APPLIC EACH EYE ×4 (11:05→21:50)
[2017-06-19 11:30] LABS: International Normalized Ratio 1.2; Prothrombin Time (Protime)PT. 15.5 SECONDS (11.7-14.9)
[2017-06-19 11:31] LABS: Partial Thromboplast Time 26.5 Seconds (24.1-36.2)
[2017-06-19 12:36] LABS: Bedside Glucose 127 mg/dL (70-110)
[2017-06-19] MEDS: 0.9% Normal Saline 1,000 ML 50 ML IV (12:40)
[2017-06-19] MEDS: Piperacil/Tazobactam 3.375 GM/50 ML ML IV ×2 (12:59→21:51)
[2017-06-19 13:49] LABS: Reflex Lactate? Y
--- NOTE | 2017-06-19 14:47 | NURSING ---
pt having some moist upper airway sounds. She did have some coughing while drinking water today. pt instructed to cough and clear her airway which she did. the sound remained. pulse ox checked is WNL, she is on 2L [place] oxygen. pt sat up to 35 degrees in the bed. lung sounds have rhonchi throughout. respiratory rate is WNL. Pt denies any shortness of breath or respiratory difficulty. will monitor. notified and pt will be kept NPO at this time until evaluated by speech therapy.
[2017-06-19 15:02] LABS: Lactic Acid 2.7 mmol/L (0.4-2.0)
[2017-06-19] MEDS: Bisacodyl 10 MG Suppository RECTAL (15:28)
[2017-06-19] MEDS: Dextrose 50%-Water 25 GM/50 ML DISP.SYRIN IV (16:32)
[2017-06-19 17:11] LABS: Bedside Glucose 178 mg/dL (70-110)
[2017-06-19 17:11] LABS: Bedside Glucose 52 mg/dL (70-110)
[2017-06-19] MEDS: Dext 5%-0.45% NS 1,000 ML 60 ML IV (18:30)
[2017-06-19 22:15] LABS: Bedside Glucose 91 mg/dL (70-110)
[2017-06-20] VITALS (13 sets, daily range): BP systolic 98–120; BP diastolic 53–61; PULSE 68–76; RESP 16–18; TEMP 36.1–37.7; O2SAT 92–97
[2017-06-20 00:51] LABS: Bedside Glucose 100 mg/dL (70-110)
[2017-06-20] MEDS: Piperacil/Tazobactam 3.375 GM/50 ML ML IV ×3 (06:24→21:16)
[2017-06-20] MEDS: Neomycin/Bacitracin/Polymyxin Opth. Ointment 1 APPLIC EACH EYE ×5 (06:26→21:19)
[2017-06-20 06:55] LABS: Bedside Glucose 127 mg/dL (70-110)
[2017-06-20 07:04] LABS: Absolute Lymphocyte Count 0.72 X10^3/ul (0.83-4.51); Absolute Neutrophil Count 17.2 X10^3/uL (2.0-7.7); Basophil# 0.02 X10^3/uL; Basophil% 0.1 % (0-1); Eosinophil# 0.01 X10^3/uL; Eosinophils% 0.1 % (0-5); Hemoglobin 10.4 g/dl (12.0-15.0); Lymphocyte # 0.72 X10^3/ul (4.0); Lymphocyte % 3.9 % (19-41); Mean Corp Hgb Conc 32.5 g/gl (32-36); Mean Corpuscular Hgb 30.6 pg (27.0-32.0); Mean Corpuscular Volume 94.1 fL (81-99); Mean Platelet Vol. 11.4 fl (6.2-12.0); Monocyte# 0.73 X10^3/uL; Monocyte% 3.9 % (0-10); Neutrophil # 17.17 X10^3/uL (2.7-7.7); Neutrophil % 91.8 % (47-70); Platelet Count 220 K/mm3 (150-450); RBC Distribution Width CV 14.7 % (11.6-14.6); RBC Distribution Width SD 49.9 fl (35.1-43.9); White Blood Count 18.7 K/mm3 (4.4-11.0)
[2017-06-20 07:14] LABS: POSITIVE COUNT NO; POSITIVE DIFFERENTIAL NO; POSITIVE MORPHOLOGY NO
[2017-06-20 08:20] LABS: Anion Gap 7 (5-15); BUN 20 mg/dL (7-18); BUN/Creat Ratio 23.1 RATIO (10-20); Calcium,Total 8.5 mg/dL (8.5-10.1); Chloride 102 mmol/L (98-107); Creatinine, Serum 0.87 mg/dL (0.55-1.02); EST Glomerular Filtration Rate 67 mL/min (>60); Est Glom Filt Rate - Afr Amer 81 mL/min (>60); Estimated Creatinine Clearance 40.79 ml/min; Glucose 127 mg/dL (74-106); Potassium 3.7 mmol/L (3.5-5.1); Sodium Level 138 mmol/L (136-145)
--- NOTE | 2017-06-20 09:42 | PCM.PN.HOSP ---
Patient Problems: Active and Suspected Problems (Last Updated 06/11/17 @ 17:02 by ELLIOT Moore) DKA (diabetic ketoacidoses) (Acute) Subjective: Patient had low-grade fever last evening, T-max 100.3 Fahrenheit. No Tachycardia/tachypnea/hypotension. Left eye seems little better. Vitals/I&O's: Vital Signs Temp Pulse Resp BP Pulse Ox 98.2 F 76 18 115/57 L 95 06/20/17 03:05 06/20/17 07:19 06/20/17 03:05 06/20/17 03:05 06/20/17 07:40 Oxygen Flow Rate (L/min) 2 Oxygen Delivery Method Nasal Cannula Weight: 112 lb 6.972 oz Body Mass Index (BMI) 19.9 Finger Stick Blood Glucose 124 Intake and Output for Last 24 Hours 06/18/17 06/19/17 06/20/17 23:59 23:59 23:59 Intake Total 2005.9 / 2005.9 1810 / 1810 709 / 709 Output Total 2200 / 2200 0 / 0 650 / 650 Balance -194.1 / -194.1 0 / 181 59 / 59 General: Lethargic HEENT: Atraumatic, EOMI, - - Erythema, tenderness and swelling of left orbital region; although better than yesterday. Eyelashes are still has purulent crust Laboratory Results 06/19/17 09:37: WBC 14.4 H, RBC 3.65 L, Hgb 11.0 L, Hct 34.3 L, MCV 94.0, MCH 30.1, MCHC 32.1, RDW 14.4, RDW Differential 49.2 H, Plt Count 245, MPV 10.7, Immature Gran % (Auto) 0.200, Neut % (Auto) 91.9 H, Lymph % (Auto) 3.5 L, [place] % (Auto) 4.2, Eos % (Auto) 0.1, Baso % (Auto) 0.1, Absolute Neuts (auto) 13.2 H, Absolute Lymphs (auto) 0.51 L, Total Counted Not Reportable, Differential Comment SCANNED 06/19/17 09:37: Sodium 134 L, Potassium 3.8, Chloride 99, Carbon Dioxide 27.0, Anion Gap 8, BUN 22 H, Creatinine 0.92, Estim Creat Clear Calc 38.57, Est GFR (MDRD) Af Amer 76, Est GFR (MDRD) Non-Af 63, BUN/Creatinine Ratio 24.0 H, Glucose 190 H, Calcium 8.5, Total Bilirubin 0.40, AST 114 H, ALT 71 H, Alkaline Phosphatase 349 H, C-React Prot Ext Range 36.20 H, Total Protein 6.7, Albumin 2.8 L, Globulin 3.9, Albumin/Globulin Ratio 0.7 L 06/19/17 09:37: Lactic Acid 2.3 H 06/19/17 09:37: Sodium Cancelled, Potassium Cancelled, Chloride Cancelled, Carbon Dioxide Cancelled, Anion Gap Cancelled, BUN Cancelled, Creatinine Cancelled, Estim Creat Clear Calc Cancelled, Est GFR (MDRD) Af Amer Cancelled, Est GFR (MDRD) Non-Af Cancelled, BUN/Creatinine Ratio Cancelled, Glucose Cancelled, Calcium Cancelled, Total Bilirubin Cancelled, C-React Prot Ext Range Cancelled 06/19/17 11:05: PT 15.5 H, INR 1.2, APTT 26.5 06/19/17 11:23: POC Glucose 127 H 06/19/17 14:05: Lactic Acid 2.7 H 06/19/17 16:27: POC Glucose 52 L 06/19/17 16:57: POC Glucose 178 H 06/19/17 21:47: POC Glucose 91 06/20/17 00:18: POC Glucose 100 06/20/17 06:13: POC Glucose 127 H 06/20/17 06:15: WBC 18.7 H, RBC 3.40 L, Hgb 10.4 L, Hct 32.0 L, MCV 94.1, MCH 30.6, MCHC 32.5, RDW 14.7 H, RDW Differential 49.9 H, Plt Count 220, MPV 11.4, Immature Gran % (Auto) 0.200, Neut % (Auto) 91.8 H, Lymph % (Auto) 3.9 L, [place] % (Auto) 3.9, Eos % (Auto) 0.1, Baso % (Auto) 0.1, Absolute Neuts (auto) 17.2 H, Absolute Lymphs (auto) 0.72 L, Total Counted Not Reportable 06/20/17 06:15: Sodium 138, Potassium 3.7, Chloride 102, Carbon Dioxide 29.0, Anion Gap 7, BUN 20 H, Creatinine 0.87, Estim Creat Clear Calc 40.79, Est GFR (MDRD) Af Amer 81, Est GFR (MDRD) Non-Af 67, BUN/Creatinine Ratio 23.1 H, Glucose 127 H, Calcium 8.5 Current Medications Amiodarone HCl (Cordarone) 200 mg PO DAILY [facility] Last Admin: 06/19/17 08:36 Dose: 200 mg Apixaban (Eliquis) 2.5 mg PO BID [facility] Last Admin: 06/19/17 21:38 Dose: Not Given Aspirin (Aspirin, Baby) 81 mg PO DAILY@0800 [facility] Last Admin: 06/19/17 08:36 Dose: 81 mg Bisacodyl (Dulcolax) 10 mg RECTAL DAILY [facility] Stop: 06/21/17 10:01 Last Admin: 06/19/17 15:28 Dose: 10 mg Carvedilol (Coreg) 6.25 mg PO BID [facility] Last Admin: 06/19/17 21:38 Dose: Not Given Dextrose (D50w Syringe) 0 gm IV X1 PRN; Protocol PRN Reason: HYPOGLYCEMIA Last Admin: 06/19/17 16:32 Dose: 25 gm Glucagon () 1 mg IM .X1 PRN PRN Reason: Hypoglycemia Piperacillin Sod/Tazobactam Sod (Zosyn) 3.375 gm in 50 mls @ 12.5 mls/hr IV Q8 [facility] Last Admin: 06/20/17 06:24 Dose: 12.5 mls/hr Dextrose/Sodium Chloride () 1,000 mls @ 60 mls/hr IV .[id number] [facility] Last Admin: 06/19/17 18:30 Dose: 60 mls/hr Levofloxacin 750 mg/ N/A 150 mls @ 100 mls/hr IV X1 ONE Stop: 06/20/17 11:29 Insulin Aspart (Novolog Flexpen (Bkc)) 0 units SC ACHS [facility] PRN Reason: Protocol Last Admin: 06/20/17 07:31 Dose: Not Given Insulin Aspart (Novolog Flexpen (Bkc)) 5 units SC TIDAC [facility] Last Admin: 06/20/17 07:32 Dose: Not Given Insulin Detemir (Levemir (Bkc)) 10 units SC BID [facility] Last Admin: 06/19/17 21:38 Dose: Not Given Metoclopramide HCl (Reglan) 5 mg PO TIDAC [facility] Last Admin: 06/20/17 07:32 Dose: Not Given Morphine Sulfate () 2 mg IV Q2H PRN PRN PRN Reason: SEVERE PAIN (6-10/10) Last Admin: 06/19/17 06:14 Dose: 2 mg Neomycin/Polymyxin/Bacitracin (Neosporin) 1 applic EACH EYE Q4HWA [facility] Last Admin: 06/20/17 06:26 Dose: 1 applic Nutritional Formula (Lactose Free) (Glucerna Shake) 120 ml PO 4X/DAY [facility] Last Admin: 06/19/17 21:38 Dose: Not Given Nystatin (Nystatin) 500,000 unit PO 4X/DAY [facility] Last Admin: 06/19/17 21:39 Dose: Not Given Ondansetron HCl (Zofran) 4 mg IV Q4H PRN PRN PRN Reason: NAUSEA Last Admin: 06/19/17 12:39 Dose: 4 mg Senna/Docusate Sodium (Senokot-S, Audra-Colace) 2 tablet PO BID [facility] Last Admin: 06/19/17 21:38 Dose: Not Given Sodium Chloride () 5 - 30 ml IV UD PRN PRN Reason: SALINE FLUSH Last Admin: 06/19/17 21:51 Dose: 10 ml Sodium Chloride ([place] Nasal [place]) 2 spray NASAL Q4H PRN PRN PRN Reason: NASAL DRYNESS Sodium Chloride () 5 - 30 ml IV UD PRN PRN Reason: SALINE FLUSH Medical Necessity - Tobacco Use Smoking Status: Former smoker Assessment/Plan Active and Suspected Problems (Last Updated 06/11/17 @ 17:02 by ELLIOT Moore) DKA (diabetic ketoacidoses) (Acute) The patient is a 81 year old F with history of type 1 diabetes mellitus, right heart failure, valvular heart disease and paroxysmal A. fib on amiodarone and apixaban came to ER with dehydration, generalized weakness and tiredness for last 4 days. Patient was on heavy dose of Lasix 40 mg twice daily which was decreased to 20 mg twice daily on Wednesday by Dr. Hong. In ED, her blood sugar was found more than 600, K5.3, creatinine 1.48, BUN 49, bicarb 18 with anion gap 20. Chest x-ray suggestive of severe COPD without acute disease. Initially the patient was in ICU for DKA and then transferred to the floor. She had fluid overload with CHF exacerbation and then sepsis due to left orbital cellulitis. 1. Sepsis (mild fever with lactic acidosis) possible to left preseptal orbital cellulitis possible healthcare associated lower lobes pneumonia: Patient has erythema, tenderness long left orbital region. Eyelashes are still together. Purulent discharge. Suggestive of left orbital cellulitis. Sepsis workup ordered including blood culture and urine culture are pending. Discussed with Dr. Rafael Hoskins with film laboratory technician and agree with the plan of neomycin ointment and systemic IV Zosyn broad-spectrum antibiotic. Lactic acid is elevated 2.3 and then 2.7. ID is not available until Wednesday. On further discussion with the film laboratory technician who saw her about 4-5 years ago for diabetic retinopathy status post laser therapy said he will follow up tomorrow. MRSA nasal screen negative. CT had a suggestive of left periorbital cellulitis/preseptal. The patient was seen by film laboratory technician Dr. Hoskins and he agrees the patient does not need surgical management and agree with the current plan of management including IV antibiotics, eye ointment and supportive care. Follow the labs. 2. Pulmonary venous congestion secondary to congestive heart failure from fluid overload: Patient seems mild shortness of breath. Repeat chest x-ray done which shows small effusion in the right CP angle with cephalization of bronchovascular markings in the upper lobes suggestive of moderate CHF with interstitial edema. No change in mediastinum or jarrell. Repeat chest x-ray shows worsening infiltrates or edema and bilateral pleural effusion. Patient had about 650 mL urine output. 3 DKA with history of type 1 diabetes mellitus, exact etiology unclear probably from over diuresis from Lasix: The patient was being admitted in the ICU as per DKA protocol. Was managed with IV fluid rehydration, frequent BMP monitoring and acetone. ABG shows 7.25/PCO2 30/PO2 75 on room air. DKA resolved with closed anion gap. IV insulin drip discontinued and changed to Accu-Chek before meals and at bedtime and cover with NovoLog sliding scale. Patient is on Levemir 10 units subcutaneous twice daily and scheduled NovoLog insulin 3 units 3 times daily with meals. 4. Mild abdominal distention probably due to constipation: Patient further said she did not had good bowel movement for last 7 days. Overall x-ray shows small bowel distention with gas suggestive of ileus. Acute kidney injury, prerenal etiology due to intravascular volume depletion secondary to DKA: At admission, creatinine was 1.48 which improved 1.05. 5. . Paroxysmal A. fib on amiodarone and Eliquis: Continue amiodarone and Eliquis. Patient had mild epistaxis most probably from dry nose. Saline nasal spray every 4 hourly. No more episode of epistaxis. 6. Recent admission with bilateral lower extremity DVT on Eliquis. She was discharged on 04/22/2017. 7. Right-sided heart failure with valvular heart disease: As per the last echo in March 2017, EF 55% with normal left ventricle size with mild global hypokinesis. Mild to moderate posteriorly directed MR, mild diffuse mitral valve thickening, mild TR, RVSP 37 mmHg, so history of mild pulmonary hypertension. Mild focal aortic wall thickening with calcification. 8 Dyslipidemia and hypertension: Hold antihypertensive medication. DVT prophylaxis on Eliquis. Left orbital cellulitis course discussed with the patient's daughter. she was told that if orbital cellulitis does not improve by tomorrow, will need to transfer to tertiary care center. Laboratory Results 06/19/17 09:37: WBC 14.4 H, RBC 3.65 L, Hgb 11.0 L, Hct 34.3 L, MCV 94.0, MCH 30.1, MCHC 32.1, RDW 14.4, RDW Differential 49.2 H, Plt Count 245, MPV 10.7, Immature Gran % (Auto) 0.200, Neut % (Auto) 91.9 H, Lymph % (Auto) 3.5 L, [place] % (Auto) 4.2, Eos % (Auto) 0.1, Baso % (Auto) 0.1, Absolute Neuts (auto) 13.2 H, Absolute Lymphs (auto) 0.51 L, Total Counted Not Reportable, Differential Comment SCANNED 06/19/17 09:37: Sodium 134 L, Potassium 3.8, Chloride 99, Carbon Dioxide 27.0, Anion Gap 8, BUN 22 H, Creatinine 0.92, Estim Creat Clear Calc 38.57, Est GFR (MDRD) Af Amer 76, Est GFR (MDRD) Non-Af 63, BUN/Creatinine Ratio 24.0 H, Glucose 190 H, Calcium 8.5, Total Bilirubin 0.40, AST 114 H, ALT 71 H, Alkaline Phosphatase 349 H, C-React Prot Ext Range 36.20 H, Total Protein 6.7, Albumin 2.8 L, Globulin 3.9, Albumin/Globulin Ratio 0.7 L 06/19/17 09:37: Lactic Acid 2.3 H 06/19/17 09:37: Sodium Cancelled, Potassium Cancelled, Chloride Cancelled, Carbon Dioxide Cancelled, Anion Gap Cancelled, BUN Cancelled, Creatinine Cancelled, Estim Creat Clear Calc Cancelled, Est GFR (MDRD) Af Amer Cancelled, Est GFR (MDRD) Non-Af Cancelled, BUN/Creatinine Ratio Cancelled, Glucose Cancelled, Calcium Cancelled, Total Bilirubin Cancelled, C-React Prot Ext Range Cancelled 06/19/17 11:05: PT 15.5 H, INR 1.2, APTT 26.5 06/19/17 11:23: POC Glucose 127 H 06/19/17 14:05: Lactic Acid 2.7 H 06/19/17 16:27: POC Glucose 52 L 06/19/17 16:57: POC Glucose 178 H 06/19/17 21:47: POC Glucose 91 06/20/17 00:18: POC Glucose 100 06/20/17 06:13: POC Glucose 127 H 06/20/17 06:15: WBC 18.7 H, RBC 3.40 L, Hgb 10.4 L, Hct 32.0 L, MCV 94.1, MCH 30.6, MCHC 32.5, RDW 14.7 H, RDW Differential 49.9 H, Plt Count 220, MPV 11.4, Immature Gran % (Auto) 0.200, Neut % (Auto) 91.8 H, Lymph % (Auto) 3.9 L, [place] % (Auto) 3.9, Eos % (Auto) 0.1, Baso % (Auto) 0.1, Absolute Neuts (auto) 17.2 H, Absolute Lymphs (auto) 0.72 L, Total Counted Not Reportable 06/20/17 06:15: Sodium 138, Potassium 3.7, Chloride 102, Carbon Dioxide 29.0, Anion Gap 7, BUN 20 H, Creatinine 0.87, Estim Creat Clear Calc 40.79, Est GFR (MDRD) Af Amer 81, Est GFR (MDRD) Non-Af 67, BUN/Creatinine Ratio 23.1 H, Glucose 127 H, Calcium 8.5 Clinical Impression(s) from Imaging Studies Chest X-Ray 06/17/17 08:43 IMPRESSION: Severe appearing COPD without active cardiopulmonary disease identified. Moderate aortic knob calcification. Electronically Signed: Ricardo Lacey, at 10:00 EDT Tel , Service support , Chest X-Ray 06/18/17 08:48 IMPRESSION: Moderate CHF/fluid overload with interstitial edema. Superimposed pneumonia to be clinically excluded for which follow-up chest exam is recommended to demonstrate complete clearing. Mild right greater than left pleural effusions and atelectasis/scarring noted. Electronically Signed: Ricardo Lacey at 12:06 EDT Tel , Service support , Lumbar Spine X-Ray 06/19/17 05:45 IMPRESSION: No fractures. 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 A mild lumbar scoliosis with convexity to the left Electronically Signed: Luis Laguna at 6:41 EDT Tel , Service support , Abdomen X-Ray 06/19/17 09:18 IMPRESSION: Small bowel distention with ileus or partial obstruction. Bilateral lower lung infiltrates or edema. Electronically Signed: Barrett Rowland MD at 14:48 EDT , Service support , Brain CT 06/19/17 09:19 IMPRESSION: Left periorbital cellulitis. No acute intracranial abnormality. If clinical suspicion persists for intracranial abnormality MRI can be obtained. Electronically Signed: Kateryna Green MD at 10:35 EDT Tel , Service support , Chest X-Ray 06/19/17 10:25 IMPRESSION: Worsening infiltrates or edema and pleural effusions. Electronically Signed: Barrett Rowland MD at 15:07 EDT , Service support , Code Visit Inpatient E&M: [id number] Subs Hosp L3
--- NOTE | 2017-06-20 09:51 | PN_ITS ---
Patient Problems: Active and Suspected Problems (Last Updated 06/11/17 @ 17:02 by ELLIOT Moore) DKA (diabetic ketoacidoses) (Acute) Subjective: Patient had low-grade fever last evening, T-max 100.3 Fahrenheit. No Tachycardia/tachypnea/hypotension. Left eye seems little better. Vitals/I&O's: Vital Signs Temp Pulse Resp BP Pulse Ox 98.2 F 76 18 115/57 L 95 06/20/17 03:05 06/20/17 07:19 06/20/17 03:05 06/20/17 03:05 06/20/17 07:40 Oxygen Flow Rate (L/min) 2 Oxygen Delivery Method Nasal Cannula Weight: 112 lb 6.972 oz Body Mass Index (BMI) 19.9 Finger Stick Blood Glucose 124 Intake and Output for Last 24 Hours 06/18/17 06/19/17 06/20/17 23:59 23:59 23:59 Intake Total 2005.9 / 2005.9 1810 / 1810 709 / 709 Output Total 2200 / 2200 0 / 0 650 / 650 Balance -194.1 / -194.1 0 / 181 59 / 59 General: Lethargic HEENT: Atraumatic, EOMI, - - Erythema, tenderness and swelling of left orbital region; although better than yesterday. Eyelashes are still has purulent crust Laboratory Results 06/19/17 09:37: WBC 14.4 H, RBC 3.65 L, Hgb 11.0 L, Hct 34.3 L, MCV 94.0, MCH 30.1, MCHC 32.1, RDW 14.4, RDW Differential 49.2 H, Plt Count 245, MPV 10.7, Immature Gran % (Auto) 0.200, Neut % (Auto) 91.9 H, Lymph % (Auto) 3.5 L, Lamar % (Auto) 4.2, Eos % (Auto) 0.1, Baso % (Auto) 0.1, Absolute Neuts (auto) 13.2 H , Absolute Lymphs (auto) 0.51 L, Total Counted Not Reportable, Differential Comment SCANNED 06/19/17 09:37: Sodium 134 L, Potassium 3.8, Chloride 99, Carbon Dioxide 27.0, Anion Gap 8, BUN 22 H, Creatinine 0.92, Estim Creat Clear Calc 38.57, Est GFR ( MDRD) Af Amer 76, Est GFR (MDRD) Non-Af 63, BUN/Creatinine Ratio 24.0 H, Glucose 190 H, Calcium 8.5, Total Bilirubin 0.40, AST 114 H, ALT 71 H, Alkaline Phosphatase 349 H, C-React Prot Ext Range 36.20 H, Total Protein 6.7, Albumin 2.8 L, Globulin 3.9, Albumin/Globulin Ratio 0.7 L 06/19/17 09:37: Lactic Acid 2.3 H 06/19/17 09:37: Sodium Cancelled, Potassium Cancelled, Chloride Cancelled, Carbon Dioxide Cancelled, Anion Gap Cancelled, BUN Cancelled, Creatinine Cancelled, Estim Creat Clear Calc Cancelled, Est GFR (MDRD) Af Amer Cancelled, Est GFR (MDRD) Non-Af Cancelled, BUN/Creatinine Ratio Cancelled, Glucose Cancelled, Calcium Cancelled, Total Bilirubin Cancelled, C-React Prot Ext Range Cancelled 06/19/17 11:05: PT 15.5 H, INR 1.2, APTT 26.5 06/19/17 11:23: POC Glucose 127 H 06/19/17 14:05: Lactic Acid 2.7 H 06/19/17 16:27: POC Glucose 52 L 06/19/17 16:57: POC Glucose 178 H 06/19/17 21:47: POC Glucose 91 06/20/17 00:18: POC Glucose 100 06/20/17 06:13: POC Glucose 127 H 06/20/17 06:15: WBC 18.7 H, RBC 3.40 L, Hgb 10.4 L, Hct 32.0 L, MCV 94.1, MCH 30.6, MCHC 32.5, RDW 14.7 H, RDW Differential 49.9 H, Plt Count 220, MPV 11.4, Immature Gran % (Auto) 0.200, Neut % (Auto) 91.8 H, Lymph % (Auto) 3.9 L, Lamar % (Auto) 3.9, Eos % (Auto) 0.1, Baso % (Auto) 0.1, Absolute Neuts (auto) 17.2 H , Absolute Lymphs (auto) 0.72 L, Total Counted Not Reportable 06/20/17 06:15: Sodium 138, Potassium 3.7, Chloride 102, Carbon Dioxide 29.0, Anion Gap 7, BUN 20 H, Creatinine 0.87, Estim Creat Clear Calc 40.79, Est GFR ( MDRD) Af Amer 81, Est GFR (MDRD) Non-Af 67, BUN/Creatinine Ratio 23.1 H, Glucose 127 H, Calcium 8.5 Current Medications Amiodarone HCl (Cordarone) 200 mg PO DAILY [facility] Last Admin: 06/19/17 08:36 Dose: 200 mg Apixaban (Eliquis) 2.5 mg PO BID [facility] Last Admin: 06/19/17 21:38 Dose: Not Given Aspirin (Aspirin, Baby) 81 mg PO DAILY@0800 [facility] Last Admin: 06/19/17 08:36 Dose: 81 mg Bisacodyl (Dulcolax) 10 mg RECTAL DAILY [facility] Stop: 06/21/17 10:01 Last Admin: 06/19/17 15:28 Dose: 10 mg Carvedilol (Coreg) 6.25 mg PO BID [facility] Last Admin: 06/19/17 21:38 Dose: Not Given Dextrose (D50w Syringe) 0 gm IV X1 PRN; Protocol PRN Reason: HYPOGLYCEMIA Last Admin: 06/19/17 16:32 Dose: 25 gm Glucagon () 1 mg IM .X1 PRN PRN Reason: Hypoglycemia Piperacillin Sod/Tazobactam Sod (Zosyn) 3.375 gm in 50 mls @ 12.5 mls/hr IV Q8 [facility] Last Admin: 06/20/17 06:24 Dose: 12.5 mls/hr Dextrose/Sodium Chloride () 1,000 mls @ 60 mls/hr IV .[id number] [facility] Last Admin: 06/19/17 18:30 Dose: 60 mls/hr Levofloxacin 750 mg/ N/A 150 mls @ 100 mls/hr IV X1 ONE Stop: 06/20/17 11:29 Insulin Aspart (Novolog Flexpen (Bkc)) 0 units SC ACHS [facility] PRN Reason: Protocol Last Admin: 06/20/17 07:31 Dose: Not Given Insulin Aspart (Novolog Flexpen (Bkc)) 5 units SC TIDAC [facility] Last Admin: 06/20/17 07:32 Dose: Not Given Insulin Detemir (Levemir (Bkc)) 10 units SC BID [facility] Last Admin: 06/19/17 21:38 Dose: Not Given Metoclopramide HCl (Reglan) 5 mg PO TIDAC [facility] Last Admin: 06/20/17 07:32 Dose: Not Given Morphine Sulfate () 2 mg IV Q2H PRN PRN PRN Reason: SEVERE PAIN (6-10/10) Last Admin: 06/19/17 06:14 Dose: 2 mg Neomycin/Polymyxin/Bacitracin (Neosporin) 1 applic EACH EYE Q4HWA [facility] Last Admin: 06/20/17 06:26 Dose: 1 applic Nutritional Formula (Lactose Free) (Glucerna Shake) 120 ml PO 4X/DAY [facility] Last Admin: 06/19/17 21:38 Dose: Not Given Nystatin (Nystatin) 500,000 unit PO 4X/DAY [facility] Last Admin: 06/19/17 21:39 Dose: Not Given Ondansetron HCl (Zofran) 4 mg IV Q4H PRN PRN PRN Reason: NAUSEA Last Admin: 06/19/17 12:39 Dose: 4 mg Senna/Docusate Sodium (Senokot-S, Audra-Colace) 2 tablet PO BID [facility] Last Admin: 06/19/17 21:38 Dose: Not Given Sodium Chloride () 5 - 30 ml IV UD PRN PRN Reason: SALINE FLUSH Last Admin: 06/19/17 21:51 Dose: 10 ml Sodium Chloride ([place] Nasal [place]) 2 spray NASAL Q4H PRN PRN PRN Reason: NASAL DRYNESS Sodium Chloride () 5 - 30 ml IV UD PRN PRN Reason: SALINE FLUSH Medical Necessity - Tobacco Use Smoking Status: Former smoker Assessment/Plan Active and Suspected Problems (Last Updated 06/11/17 @ 17:02 by ELLIOT Moore) DKA (diabetic ketoacidoses) (Acute) The patient is a 81 year old F with history of type 1 diabetes mellitus, right heart failure, valvular heart disease and paroxysmal A. fib on amiodarone and apixaban came to ER with dehydration, generalized weakness and tiredness for last 4 days. Patient was on heavy dose of Lasix 40 mg twice daily which was decreased to 20 mg twice daily on Wednesday by Dr. Hong. In ED, her blood sugar was found more than 600, K5.3, creatinine 1.48, BUN 49, bicarb 18 with anion gap 20. Chest x-ray suggestive of severe COPD without acute disease. Initially the patient was in ICU for DKA and then transferred to the floor. She had fluid overload with CHF exacerbation and then sepsis due to left orbital cellulitis. 1. Sepsis (mild fever with lactic acidosis) possible to left preseptal orbital cellulitis possible healthcare associated lower lobes pneumonia: Patient has erythema, tenderness long left orbital region. Eyelashes are still together. Purulent discharge. Suggestive of left orbital cellulitis. Sepsis workup ordered including blood culture and urine culture are pending. Discussed with Dr. Rafael Hoskins with textile technologist and agree with the plan of neomycin ointment and systemic IV Zosyn broad-spectrum antibiotic. Lactic acid is elevated 2.3 and then 2.7. ID is not available until Wednesday. On further discussion with the textile technologist who saw her about 4-5 years ago for diabetic retinopathy status post laser therapy said he will follow up tomorrow. MRSA nasal screen negative. CT had a suggestive of left periorbital cellulitis/preseptal. The patient was seen by textile technologist Dr. Hoskins and he agrees the patient does not need surgical management and agree with the current plan of management including IV antibiotics, eye ointment and supportive care. Follow the labs. 2. Pulmonary venous congestion secondary to congestive heart failure from fluid overload: Patient seems mild shortness of breath. Repeat chest x-ray done which shows small effusion in the right CP angle with cephalization of bronchovascular markings in the upper lobes suggestive of moderate CHF with interstitial edema. No change in mediastinum or jarrell. Repeat chest x-ray shows worsening infiltrates or edema and bilateral pleural effusion. Patient had about 650 mL urine output. 3 DKA with history of type 1 diabetes mellitus, exact etiology unclear probably from over diuresis from Lasix: The patient was being admitted in the ICU as per DKA protocol. Was managed with IV fluid rehydration, frequent BMP monitoring and acetone. ABG shows 7.25/PCO2 30/PO2 75 on room air. DKA resolved with closed anion gap. IV insulin drip discontinued and changed to Accu-Chek before meals and at bedtime and cover with NovoLog sliding scale. Patient is on Levemir 10 units subcutaneous twice daily and scheduled NovoLog insulin 3 units 3 times daily with meals. 4. Mild abdominal distention probably due to constipation: Patient further said she did not had good bowel movement for last 7 days. Overall x-ray shows small bowel distention with gas suggestive of ileus. Acute kidney injury, prerenal etiology due to intravascular volume depletion secondary to DKA: At admission, creatinine was 1.48 which improved 1.05. 5. . Paroxysmal A. fib on amiodarone and Eliquis: Continue amiodarone and Eliquis. Patient had mild epistaxis most probably from dry nose. Saline nasal spray every 4 hourly. No more episode of epistaxis. 6. Recent admission with bilateral lower extremity DVT on Eliquis. She was discharged on 04/22/2017. 7. Right-sided heart failure with valvular heart disease: As per the last echo in March 2017, EF 55% with normal left ventricle size with mild global hypokinesis. Mild to moderate posteriorly directed MR, mild diffuse mitral valve thickening, mild TR, RVSP 37 mmHg, so history of mild pulmonary hypertension. Mild focal aortic wall thickening with calcification. 8 Dyslipidemia and hypertension: Hold antihypertensive medication. DVT prophylaxis on Eliquis. Left orbital cellulitis course discussed with the patient's daughter. she was told that if orbital cellulitis does not improve by tomorrow, will need to transfer to tertiary care center. Laboratory Results 06/19/17 09:37: WBC 14.4 H, RBC 3.65 L, Hgb 11.0 L, Hct 34.3 L, MCV 94.0, MCH 30.1, MCHC 32.1, RDW 14.4, RDW Differential 49.2 H, Plt Count 245, MPV 10.7, Immature Gran % (Auto) 0.200, Neut % (Auto) 91.9 H, Lymph % (Auto) 3.5 L, Lamar % (Auto) 4.2, Eos % (Auto) 0.1, Baso % (Auto) 0.1, Absolute Neuts (auto) 13.2 H , Absolute Lymphs (auto) 0.51 L, Total Counted Not Reportable, Differential Comment SCANNED 06/19/17 09:37: Sodium 134 L, Potassium 3.8, Chloride 99, Carbon Dioxide 27.0, Anion Gap 8, BUN 22 H, Creatinine 0.92, Estim Creat Clear Calc 38.57, Est GFR ( MDRD) Af Amer 76, Est GFR (MDRD) Non-Af 63, BUN/Creatinine Ratio 24.0 H, Glucose 190 H, Calcium 8.5, Total Bilirubin 0.40, AST 114 H, ALT 71 H, Alkaline Phosphatase 349 H, C-React Prot Ext Range 36.20 H, Total Protein 6.7, Albumin 2.8 L, Globulin 3.9, Albumin/Globulin Ratio 0.7 L 06/19/17 09:37: Lactic Acid 2.3 H 06/19/17 09:37: Sodium Cancelled, Potassium Cancelled, Chloride Cancelled, Carbon Dioxide Cancelled, Anion Gap Cancelled, BUN Cancelled, Creatinine Cancelled, Estim Creat Clear Calc Cancelled, Est GFR (MDRD) Af Amer Cancelled, Est GFR (MDRD) Non-Af Cancelled, BUN/Creatinine Ratio Cancelled, Glucose Cancelled, Calcium Cancelled, Total Bilirubin Cancelled, C-React Prot Ext Range Cancelled 06/19/17 11:05: PT 15.5 H, INR 1.2, APTT 26.5 06/19/17 11:23: POC Glucose 127 H 06/19/17 14:05: Lactic Acid 2.7 H 06/19/17 16:27: POC Glucose 52 L 06/19/17 16:57: POC Glucose 178 H 06/19/17 21:47: POC Glucose 91 06/20/17 00:18: POC Glucose 100 06/20/17 06:13: POC Glucose 127 H 06/20/17 06:15: WBC 18.7 H, RBC 3.40 L, Hgb 10.4 L, Hct 32.0 L, MCV 94.1, MCH 30.6, MCHC 32.5, RDW 14.7 H, RDW Differential 49.9 H, Plt Count 220, MPV 11.4, Immature Gran % (Auto) 0.200, Neut % (Auto) 91.8 H, Lymph % (Auto) 3.9 L, Lamar % (Auto) 3.9, Eos % (Auto) 0.1, Baso % (Auto) 0.1, Absolute Neuts (auto) 17.2 H , Absolute Lymphs (auto) 0.72 L, Total Counted Not Reportable 06/20/17 06:15: Sodium 138, Potassium 3.7, Chloride 102, Carbon Dioxide 29.0, Anion Gap 7, BUN 20 H, Creatinine 0.87, Estim Creat Clear Calc 40.79, Est GFR ( MDRD) Af Amer 81, Est GFR (MDRD) Non-Af 67, BUN/Creatinine Ratio 23.1 H, Glucose 127 H, Calcium 8.5 Clinical Impression(s) from Imaging Studies Chest X-Ray 06/17/17 08:43 IMPRESSION: Severe appearing COPD without active cardiopulmonary disease identified. Moderate aortic knob calcification. Electronically Signed: Ricardo Lacey, at 10:00 EDT Tel , Service support , Chest X-Ray 06/18/17 08:48 IMPRESSION: Moderate CHF/fluid overload with interstitial edema. Superimposed pneumonia to be clinically excluded for which follow-up chest exam is recommended to demonstrate complete clearing. Mild right greater than left pleural effusions and atelectasis/scarring noted. Electronically Signed: Ricardo Lacey at 12:06 EDT Tel , Service support , Lumbar Spine X-Ray 06/19/17 05:45 IMPRESSION: No fractures. 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 A mild lumbar scoliosis with convexity to the left Electronically Signed: Luis Laguna at 6:41 EDT Tel , Service support , Abdomen X-Ray 06/19/17 09:18 IMPRESSION: Small bowel distention with ileus or partial obstruction. Bilateral lower lung infiltrates or edema. Electronically Signed: Barrett Rowland MD at 14:48 EDT , Service support , Brain CT 06/19/17 09:19 IMPRESSION: Left periorbital cellulitis. No acute intracranial abnormality. If clinical suspicion persists for intracranial abnormality MRI can be obtained. Electronically Signed: Kateryna Green MD at 10:35 EDT Tel , Service support , Chest X-Ray 06/19/17 10:25 IMPRESSION: Worsening infiltrates or edema and pleural effusions. Electronically Signed: Barrett Rowland MD at 15:07 EDT , Service support , Code Visit Inpatient E&M: [id number] Subs Hosp L3
[2017-06-20] MEDS: APIXABAN 2.5 MG TABLET PO (10:31)
[2017-06-20] MEDS: Aspirin 81 MG TAB.CHEW PO (10:31)
[2017-06-20] MEDS: Amiodarone 200 MG Tablet PO (10:31)
[2017-06-20] MEDS: Carvedilol 6.25 MG Tablet PO (10:31)
[2017-06-20] MEDS: NYSTATIN 500,000 UNIT/5 ML UDC 500000 UNIT PO ×3 (10:34→17:00)
[2017-06-20] MEDS: Senna/Docusate Sodium 1 Tablet 2 TABLET PO (10:47)
[2017-06-20] MEDS: Glucerna Shake 120 ML LIQUID PO (10:50)
[2017-06-20] MEDS: Dext 5%-0.45% NS 1,000 ML 60 ML IV (10:50)
[2017-06-20 11:21] LABS: Bedside Glucose 229 mg/dL (70-110)
--- NOTE | 2017-06-20 16:29 | NURSING ---
insulin pump removed and sent home with daughter
[2017-06-20] MEDS: Metoclopramide 10 MG/10 ML UDC 5 MG PO (17:00)
[2017-06-20 18:16] LABS: Bedside Glucose 258 mg/dL (70-110)
[2017-06-20 21:30] LABS: Bedside Glucose 189 mg/dL (70-110)
[2017-06-21] VITALS (13 sets, daily range): BP systolic 98–113; BP diastolic 53–63; PULSE 54–70; RESP 16–18; TEMP 36.3–37; O2SAT 93–98
[2017-06-21] MEDS: Dext 5%-0.45% NS 1,000 ML 60 ML IV (02:33)
[2017-06-21] MEDS: Piperacil/Tazobactam 3.375 GM/50 ML ML IV ×3 (05:39→22:39)
[2017-06-21] MEDS: Neomycin/Bacitracin/Polymyxin Opth. Ointment 1 APPLIC EACH EYE ×5 (05:39→22:41)
[2017-06-21] MEDS: Dextrose 50%-Water 25 GM/50 ML DISP.SYRIN IV (05:48)
[2017-06-21] MEDS: 0.9% NaCl Peripheral Flush Adult/Peds IV (05:48)
[2017-06-21 06:01] LABS: Bedside Glucose 39 mg/dL (70-110)
[2017-06-21 06:16] LABS: Bedside Glucose 199 mg/dL (70-110)
[2017-06-21 06:23] LABS: Glucose 41 mg/dL (74-106)
--- NOTE | 2017-06-21 06:25 | NURSING ---
Primary RN in to give AM medications, pt was not as responsive as she was earlier in the shift. BG obtained and resulted with a critical low of 39, STAT lab backup obtained and it resulted at 41; a D50 amp was given after lab backup was drawn and fifteen minute check after giving D50 amp was 199. Pt drowsy which is not any different from the rest of the shift but is more responsive. Dr. Newell notified at 0625, will continue to monitor.
[2017-06-21 06:55] LABS: Bedside Glucose 120 mg/dL (70-110)
[2017-06-21 08:41] LABS: Bedside Glucose 88 mg/dL (70-110)
--- NOTE | 2017-06-21 09:48 | MRI_ITS ---
MR brain and Orbits WO/W Contrast INDICATION: ERYTHEMA, TENDERNESS, SWELLING L ORBITAL REGION, CELLULITIS SEPSIS COMPARISON: CT brain June 19, 2017 TECHNIQUE: Multiplanar multisequence MRI examination of the brain without and with IV contrast FINDINGS: MRI brain: There is no evidence of restricted diffusion to suggest acute infarction. The ventricular system and cortical sulci are prominent, compatible with generalized cerebral volume loss. There are mild confluent periventricular and punctate and patchy subcortical T2/physical hyperintensities, nonspecific, most compatible with chronic ischemic microvascular white matter changes. After contrast administration, there is no abnormal parenchymal or extra-axial enhancement identified. Flow voids of the [place] vascularity are present. There is mild mucosal thickening throughout the paranasal sinuses and partial opacification of the mastoid air cells. MRI orbits: There is diffuse left periorbital, and left facial and temporal soft tissue swelling noted with postcontrast hyperenhancement. The inflammatory changes are contained to the extracranial space and preseptal space. The orbital fat remains clear and there is no abnormal enhancement in the conus. The globes are symmetric. The optic nerve sheath complex is symmetric bilaterally. IMPRESSION: Age-related cerebral volume loss and chronic ischemic microvascular white matter changes. Mild mucosal thickening in the paranasal sinuses and partial opacification of the mastoid air cells. Marked left periorbital and facial subcutaneous soft tissue swelling with enhancement. No evidence of intracranial or post-septal extension. at 1740 Reported and signed by: Jenni Zarate MD Electronically Signed: Jenni Zarate MD at 16:39 EDT Tel , Service support , MR brain and Orbits WO/W Contrast INDICATION: ERYTHEMA, TENDERNESS, SWELLING L ORBITAL REGION, CELLULITIS SEPSIS COMPARISON: CT brain June 19, 2017 TECHNIQUE: Multiplanar multisequence MRI examination of the brain without and with IV contrast FINDINGS: MRI brain: There is no evidence of restricted diffusion to suggest acute infarction. The ventricular system and cortical sulci are prominent, compatible with generalized cerebral volume loss. There are mild confluent periventricular and punctate and patchy subcortical T2/physical hyperintensities, nonspecific, most compatible with chronic ischemic microvascular white matter changes. After contrast administration, there is no abnormal parenchymal or extra-axial enhancement identified. Flow voids of the [place] vascularity are present. There is mild mucosal thickening throughout the paranasal sinuses and partial opacification of the mastoid air cells. MRI orbits: There is diffuse left periorbital, and left facial and temporal soft tissue swelling noted with postcontrast hyperenhancement. The inflammatory changes are contained to the extracranial space and preseptal space. The orbital fat remains clear and there is no abnormal enhancement in the conus. The globes are symmetric. The optic nerve sheath complex is symmetric bilaterally. MRI/Orbit Face Neck W/WO Contrast IMPRESSION: Age-related cerebral volume loss and chronic ischemic microvascular white matter changes. Mild mucosal thickening in the paranasal sinuses and partial opacification of the mastoid air cells. Marked left periorbital and facial subcutaneous soft tissue swelling with enhancement. No evidence of intracranial or post-septal extension. at 1741 Reported and signed by: Jenni Zarate MD Electronically Signed: Jenni Zarate MD at 16:39 EDT Tel , Service support ,
[2017-06-21] MEDS: Dextrose 5%/0.9% NaCl 1,000 ML 75 ML IV (10:54)
[2017-06-21] MEDS: Aspirin 81 MG TAB.CHEW PO (10:54)
[2017-06-21] MEDS: APIXABAN 2.5 MG TABLET PO ×2 (10:54→22:40)
[2017-06-21] MEDS: NYSTATIN 500,000 UNIT/5 ML UDC 500000 UNIT PO ×4 (10:55→22:43)
--- NOTE | 2017-06-21 11:18 | CON.PCM_ITS ---
Problem List (1) Periorbital cellulitis of left eye Status: Acute Reason for Consult: orbital cellulitis Consulted by: Dr. Maxwell History of Present Illness: The patient is a 81 year old F with DM who presented 06/17 with two days of progressive L eye swelling, pain, redness. No fever or chills. No inciting event. Denies pain with bright light or eye movement. No n/v/d. No h/o MRSA. No sinus drainage. Admitted, started on ceftriaxone, changed to zosyn, still with worsening symptoms, rising wbc, and increasing lactic acid. Per nursing, daughter reported she had a recent oral infection. Full ROS performed and neg except as noted above. 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 (Chronic) Paroxysmal atrial fibrillation (Chronic) Valvular heart disease (Chronic) Right-sided heart failure (Chronic) Hyperlipidemia due to type 1 diabetes mellitus (Chronic) Uncontrolled type 1 diabetes mellitus with complication, without long-term current use of insulin (Chronic) Allergies/Adverse Reactions: Allergies No Known Allergies Allergy (Verified 06/07/17 10:59) Home Medications: Ambulatory Orders Medication Instructions Recorded insulin lispro (U-100) 100 unit/mL See Label Instructions SC QDAY 03/17/17 subcutaneous solution Aspirin [Aspirin, Baby] 81 mg PO DAILY@0800 04/21/17 amiodarone 200 mg tablet 200 mg PO QDAY #90 tab 05/19/17 apixaban 2.5 mg tablet 2.5 mg PO BID #180 tab 05/19/17 carvedilol 12.5 mg tablet 6.25 mg PO BID #180 tab 05/27/17 Furosemide [Furosemide] 40 mg PO DAILY 06/17/17 - Social History SMOKING STATUS:: Former smoker Vital Signs Temp Pulse Resp BP Pulse Ox 98.0 F 58 L 16 103/55 L 93 06/21/17 10:00 06/21/17 10:00 06/21/17 10:00 06/21/17 10:00 06/21/17 10:27 Oxygen Flow Rate (L/min) 2 Oxygen Delivery Method Room Air Weight: 51.3 kg Body Mass Index (BMI) 19.9 Finger Stick Blood Glucose 124 Microbiology Past 72 Hours 06/20/17 03:35 Streptococcus pneumoniae Antigen (M - Final Urine Catheter - Catheter 06/20/17 03:35 Legionella Antigen - Final Urine Catheter - Catheter Laboratory Tests Past 24 Hrs 06/21/17 06/21/17 05:48 10:35 Glucose 41 L* Lactic Acid Pending - Other Studies Radiology: [] reviewed Other Studies: [] Route of nutrition/ use of supplements: [] Nutritional Intake: [] IV Site: [] [place] Catheter: [] - Physical Exam General: Alert, Oriented x3, Cooperative, - - ill appearing HEENT: Atraumatic, - - L eye swollen shut with pain and erythema Neck: Supple, No Nodes Lungs: Clear to auscultation, Normal air movement Cardiovascular: Regular rate, Regular Rhythm, No murmurs Abdomen: Bowel Sounds Present, Soft, Non Tender, Non-Distended Extremities: No edema Skin: No rashes - no other rash IV Site: Peripheral, without redness Musculoskeletal: No Tenderness to Palpation of Joints or Extremities Neurological: - - Reports pain with L eye movement - Assessment/Plan Antibiotics: [] Assessment/Plan: [] Active and Suspected Problems (Last Updated 06/11/17 @ 17:02 by ELLIOT Moore) DKA (diabetic ketoacidoses) (Acute) L periorbital cellulitis - worsening pain, swelling, wbc, and lactate. Pain with eye movement raises high concern for spread to orbital cellulitis. Check repeat lactate. Add vanc for MRSA coverage. Continue zosyn. Check MRI with contrast of orbits. With glucose of 638 on arrival and worsening condition, fungal infection, including mucormycosis, is on the differential diagnosis. Thank you, will follow, d/w case briefer.
[2017-06-21 11:20] LABS: Bedside Glucose 100 mg/dL (70-110)
--- NOTE | 2017-06-21 12:14 | PCM.PN.HOSP ---
Patient Problems: Active and Suspected Problems (Last Updated 06/11/17 @ 17:02 by ELLIOT Moore) DKA (diabetic ketoacidoses) (Acute) Periorbital cellulitis of left eye (Acute) Subjective: Patient was seen and examined. Had bradycardia overnight - in the low 50s with significant hypoglycemia in the 40s. Patient has poor po intake. Denies fever or chills. Discussed with ID and ophthalmology, patient has not had significant improvement over the weekend. Left eye has purulent discharge. Vitals/I&O's: Vital Signs Temp Pulse Resp BP Pulse Ox 98.0 F 58 L 16 103/55 L 93 06/21/17 10:00 06/21/17 10:00 06/21/17 10:00 06/21/17 10:00 06/21/17 10:27 Oxygen Flow Rate (L/min) 2 Oxygen Delivery Method Room Air Weight: 51.3 kg Body Mass Index (BMI) 19.9 Finger Stick Blood Glucose 124 Intake and Output for Last 24 Hours 06/19/17 06/20/17 06/21/17 23:59 23:59 23:59 Intake Total 1810 / 1810 1712 / 1712 897.6 / 897.6 Output Total 0 / 0 1250 / 1250 Balance 1810 / 1810 462 / 462 897.6 / 897.6 General: Alert, Oriented x3, Cooperative, No apparent distress HEENT: Normocephalic, - - Left eye and periorital area appears swollen and erythematous with reddeness extending to Neck: Supple Lungs: Clear to auscultation, Normal air movement Cardiovascular: Regular rate, Regular Rhythm, Normal S1, Normal S2, No murmurs Abdomen: Bowel Sounds Present, Soft, Non Tender, Non-Distended, No Hepato-splenomegaly, Obese Extremities: No edema Skin: No rashes, No breakdown Musculoskeletal: No Tenderness to Palpation of Joints or Extremities Lymphatic: No Cervical, Supraclavicular, or Inguinal Adenopathy Neurological: Cranial nerves II-XII grossly intact, Neuro grossly intact Psych/Mental Status: Normal Affect, Appropriate Microbiology Past 72 Hours 06/20/17 03:35 Urine Catheter - Catheter Streptococcus pneumoniae Antigen (M - Final 06/20/17 03:35 Urine Catheter - Catheter Legionella Antigen - Final Laboratory Results 06/20/17 16:52: POC Glucose 258 H 06/20/17 21:15: POC Glucose 189 H 06/21/17 05:42: POC Glucose 39 L* 06/21/17 05:48: Glucose 41 L* 06/21/17 06:11: POC Glucose 199 H 06/21/17 06:45: POC Glucose 120 H 06/21/17 08:34: POC Glucose 88 06/21/17 10:35: Lactic Acid 2.0 06/21/17 11:11: POC Glucose 100 Current Medications Apixaban (Eliquis) 2.5 mg PO BID [facility] Last Admin: 06/21/17 10:54 Dose: 2.5 mg Aspirin (Aspirin, Baby) 81 mg PO DAILY@0800 [facility] Last Admin: 06/21/17 10:54 Dose: 81 mg Dextrose (D50w Syringe) 0 gm IV X1 PRN; Protocol PRN Reason: HYPOGLYCEMIA Last Admin: 06/21/17 05:48 Dose: 50 gm Glucagon () 1 mg IM .X1 PRN PRN Reason: Hypoglycemia Piperacillin Sod/Tazobactam Sod (Zosyn) 3.375 gm in 50 mls @ 12.5 mls/hr IV Q8 [facility] Last Admin: 06/21/17 05:39 Dose: 12.5 mls/hr Dextrose/Sodium Chloride () 1,000 mls @ 60 mls/hr IV .[id number] [facility] Last Admin: 06/21/17 02:33 Dose: 60 mls/hr Dextrose/Sodium Chloride (Dextrose 5%/0.9% Nacl) 1,000 mls @ 75 mls/hr IV .[id number] [facility] Stop: 06/21/17 23:14 Last Admin: 06/21/17 10:54 Dose: 75 mls/hr Vancomycin HCl () 500 mg in 100 mls @ 100 mls/hr IV Q12H [facility] Insulin Aspart (Novolog Flexpen (Bkc)) 0 units SC ACHS [facility] PRN Reason: Protocol Last Admin: 06/21/17 11:13 Dose: Not Given Metoclopramide HCl (Reglan) 5 mg PO TIDAC [facility] Last Admin: 06/21/17 11:13 Dose: Not Given Morphine Sulfate () 2 mg IV Q2H PRN PRN PRN Reason: SEVERE PAIN (6-10/10) Last Admin: 06/19/17 06:14 Dose: 2 mg Neomycin/Polymyxin/Bacitracin (Neosporin) 1 applic EACH EYE Q4HWA [facility] Last Admin: 06/21/17 10:55 Dose: 1 applic Nutritional Formula (Lactose Free) (Glucerna Shake) 120 ml PO 4X/DAY [facility] Last Admin: 06/21/17 09:58 Dose: Not Given Nystatin (Nystatin) 500,000 unit PO 4X/DAY [facility] Last Admin: 06/21/17 10:55 Dose: 500,000 unit Ondansetron HCl (Zofran) 4 mg IV Q4H PRN PRN PRN Reason: NAUSEA Last Admin: 06/19/17 12:39 Dose: 4 mg Senna/Docusate Sodium (Senokot-S, Audra-Colace) 2 tablet PO BID [facility] Last Admin: 06/21/17 09:58 Dose: Not Given Sodium Chloride () 5 - 30 ml IV UD PRN PRN Reason: SALINE FLUSH Last Admin: 06/21/17 05:48 Dose: 10 ml Sodium Chloride ([place] Nasal [place]) 2 spray NASAL Q4H PRN PRN PRN Reason: NASAL DRYNESS Sodium Chloride () 5 - 30 ml IV UD PRN PRN Reason: SALINE FLUSH Medical Necessity - Tobacco Use Smoking Status: Former smoker Assessment/Plan Active and Suspected Problems (Last Updated 06/11/17 @ 17:02 by ELLIOT Moore) DKA (diabetic ketoacidoses) (Acute) Periorbital cellulitis of left eye (Acute) 81 year old F with history of type 1 diabetes mellitus, right heart failure, valvular heart disease and paroxysmal A. fib admitted with dehydration, generalized weakness and tiredness ongoing for last 4 days. Patient was admitted initially to ICU and managed as DKA and later transferred to the floor. 1. Sepsis secondary to left preseptal cellulitis, very little improvement on IV zosyn, ID consulted, added vancomycin for MRSA coverage, MRI of brain to rule our orbital cellulitis. Initial lactic acid was 2.3, repeat lactic acid was 2.0, will continue on IV Zosyn and vancomycin, will follow up with white cell count in the morning. 2. Acute on chronic systolic congestive heart failure from fluid overload, improved, patient is on 40 mg of Lasix at home, off Lasix because she came in with an achy with creatinine of 1.48, patient does not appear fluid overloaded, would give Lasix as needed 3. DKA with history of type 1 diabetes mellitus, exact etiology unclear, now with episodes of hypoglycemia, poor po intake, insulin on hold, will continue to monitor with accucheks. 4. Constipation, resolved 5. Acute kidney injury, prerenal etiology due to intravascular volume depletion secondary to DKA, resolved 6. Paroxysmal A. fib, on amiodarone and Eliquis 7. Recent admission with bilateral lower extremity DVT, on Eliquis. 8. Hypertension, BP is controlled, meds on hold. 9. DVT prophylaxis- on Eliquis. Code Visit Inpatient E&M: 80267 Subs Hosp L3
[2017-06-21 12:59] LABS: ALB/GLOB Ratio 0.5 RATIO (0.9-2.4); AST(SGOT) 115 U/L (15-37); Absolute Lymphocyte Count 0.91 X10^3/ul (0.83-4.51); Absolute Neutrophil Count 16.5 X10^3/uL (2.0-7.7); Alanine Aminotransfer ALT/SGPT 82 U/L (13-56); Albumin, Serum 2.1 g/dL (3.2-5.0); Alkaline Phosphatase 243 U/L (45-117); Anion Gap 6 (5-15); BUN 22 mg/dL (7-18); BUN/Creat Ratio 25.5 RATIO (10-20); Basophil# 0.01 X10^3/uL; Basophil% 0.1 % (0-1); Calcium,Total 8.1 mg/dL (8.5-10.1); Chloride 101 mmol/L (98-107); Creatinine, Serum 0.86 mg/dL (0.55-1.02); EST Glomerular Filtration Rate 67 mL/min (>60); Eosinophil# 0.09 X10^3/uL; Eosinophils% 0.5 % (0-5); Est Glom Filt Rate - Afr Amer 81 mL/min (>60); Estimated Creatinine Clearance 41.26 ml/min; Globulin 3.9 g/dL (2.2-4.2); Glucose 159 mg/dL (74-106); Hematocrit 31.1 % (37-47); Lymphocyte # 0.91 X10^3/ul (4.0); Lymphocyte % 4.9 % (19-41); Mean Corp Hgb Conc 32.2 g/gl (32-36); Mean Corpuscular Hgb 30.1 pg (27.0-32.0); Mean Corpuscular Volume 93.7 fL (81-99); Mean Platelet Vol. 10.8 fl (6.2-12.0); Monocyte# 0.89 X10^3/uL; Monocyte% 4.8 % (0-10); Neutrophil # 16.49 X10^3/uL (2.7-7.7); Neutrophil % 89.4 % (47-70); Platelet Count 201 K/mm3 (150-450); Potassium 3.5 mmol/L (3.5-5.1); RBC Distribution Width CV 14.5 % (11.6-14.6); RBC Distribution Width SD 50.1 fl (35.1-43.9); Red Blood Count 3.32 M/mm3 (4.2-5.4); Sodium Level 135 mmol/L (136-145); White Blood Count 18.5 K/mm3 (4.4-11.0)
[2017-06-21 13:00] LABS: POSITIVE COUNT NO; POSITIVE DIFFERENTIAL NO; POSITIVE MORPHOLOGY NO
[2017-06-21 14:43] LABS: Reflex Lactate? Y
[2017-06-21 16:45] LABS: Lactic Acid 2.3 mmol/L (0.4-2.0)
[2017-06-21 17:20] LABS: Bedside Glucose 215 mg/dL (70-110)
[2017-06-21] MEDS: Dextrose 5%/0.9% NaCl 1,000 ML 30 ML IV (19:15)
[2017-06-21 23:51] LABS: Bedside Glucose 246 mg/dL (70-110)
[2017-06-22] VITALS (13 sets, daily range): BP systolic 123–144; BP diastolic 57–70; PULSE 65–68; RESP 12–18; TEMP 36–36.8; O2SAT 93–96
[2017-06-22] MEDS: Piperacil/Tazobactam 3.375 GM/50 ML ML IV ×3 (05:24→22:49)
[2017-06-22] MEDS: Acetaminophen 325 MG Tablet 650 MG PO (05:50)
[2017-06-22] MEDS: Neomycin/Bacitracin/Polymyxin Opth. Ointment 1 APPLIC EACH EYE ×5 (05:52→22:49)
--- NOTE | 2017-06-22 06:00 | NURSING ---
Pt. right eye sclera appears red this morning. Pt. c/o right eye feeling like it is getting same problem as left eye. Placed neosporin ointment in both eyes this morning. Will monitor
[2017-06-22 07:26] LABS: Bedside Glucose 277 mg/dL (70-110)
[2017-06-22 08:43] LABS: Absolute Lymphocyte Count 0.93 X10^3/ul (0.83-4.51); Absolute Neutrophil Count 11.3 X10^3/uL (2.0-7.7); Basophil# 0.01 X10^3/uL; Basophil% 0.1 % (0-1); Eosinophil# 0.25 X10^3/uL; Eosinophils% 1.9 % (0-5); Hematocrit 30.2 % (37-47); Hemoglobin 9.8 g/dl (12.0-15.0); Lymphocyte # 0.93 X10^3/ul (4.0); Lymphocyte % 6.9 % (19-41); Mean Corp Hgb Conc 32.5 g/gl (32-36); Mean Corpuscular Hgb 30.1 pg (27.0-32.0); Mean Corpuscular Volume 92.6 fL (81-99); Monocyte# 0.86 X10^3/uL; Monocyte% 6.4 % (0-10); Neutrophil # 11.31 X10^3/uL (2.7-7.7); Neutrophil % 84.3 % (47-70); Platelet Count 254 K/mm3 (150-450); RBC Distribution Width CV 14.7 % (11.6-14.6); RBC Distribution Width SD 49.5 fl (35.1-43.9); Red Blood Count 3.26 M/mm3 (4.2-5.4); White Blood Count 13.4 K/mm3 (4.4-11.0)
[2017-06-22 08:46] LABS: POSITIVE COUNT NO; POSITIVE DIFFERENTIAL NO; POSITIVE MORPHOLOGY NO
[2017-06-22 08:58] LABS: Lactic Acid 1.3 mmol/L (0.4-2.0)
[2017-06-22] MEDS: Aspirin 81 MG TAB.CHEW PO (10:00)
[2017-06-22] MEDS: NYSTATIN 500,000 UNIT/5 ML UDC 500000 UNIT PO ×4 (10:00→23:01)
[2017-06-22] MEDS: APIXABAN 2.5 MG TABLET PO ×2 (10:00→23:01)
[2017-06-22] MEDS: Metoclopramide 10 MG/10 ML UDC 5 MG PO (10:20)
--- NOTE | 2017-06-22 10:20 | PCM.PN.HOSP ---
Patient Problems: Active and Suspected Problems (Last Updated 06/11/17 @ 17:02 by ELLIOT Moore) DKA (diabetic ketoacidoses) (Acute) Periorbital cellulitis of left eye (Acute) Subjective: Patient was seen and examined. Appears much improved. Blood sugars have also improved and is starting to creep up. Denies any fever or chills. No acute events overnight. Objective: PHYSICAL EXAM: General: Alert, Oriented x3, Cooperative, No apparent distress HEENT: Normocephalic, - - Improvement in Left eye and periorital swelling and erythema Neck: Supple Lungs: Clear to auscultation, Normal air movement Cardiovascular: Regular rate, Regular Rhythm, Normal S1, Normal S2, No murmurs Abdomen: Bowel Sounds Present, Soft, Non Tender, Non-Distended, No Hepato-splenomegaly, Obese Extremities: No edema Skin: No rashes, No breakdown Musculoskeletal: No Tenderness to Palpation of Joints or Extremities Lymphatic: No Cervical, Supraclavicular, or Inguinal Adenopathy Neurological: Cranial nerves II-XII grossly intact, Neuro grossly intact Psych/Mental Status: Normal Affect, Appropriate Vitals/I&O's: Vital Signs Temp Pulse Resp BP Pulse Ox 97.5 F L 65 12 144/70 H 93 06/22/17 09:05 06/22/17 09:05 06/22/17 09:05 06/22/17 09:05 06/22/17 09:50 Oxygen Flow Rate (L/min) 2 Oxygen Delivery Method Room Air Weight: 54.3 kg Body Mass Index (BMI) 19.9 Finger Stick Blood Glucose 124 Intake and Output for Last 24 Hours 06/20/17 06/21/17 06/22/17 23:59 23:59 23:59 Intake Total 1712 / 1712 2570.6 / 2570.6 364 / 364 Output Total 1250 / 1250 300 / 300 200 / 200 Balance 462 / 462 2270.6 / 2270.6 164 / 164 Microbiology Past 72 Hours 06/20/17 03:35 Urine Catheter - Catheter Urine Culture - Preliminary Culture exhibits no growth. 06/19/17 11:05 Blood Culture (Wb) - Left Forearm Blood Culture - Preliminary No growth in 48 hours. 06/19/17 09:37 Blood Culture (Wb) - Right Hand Blood Culture - Preliminary No growth in 48 hours. 06/20/17 03:35 Urine Catheter - Catheter Streptococcus pneumoniae Antigen (M - Final 06/20/17 03:35 Urine Catheter - Catheter Legionella Antigen - Final Laboratory Results 06/21/17 10:35: Lactic Acid 2.0 06/21/17 11:11: POC Glucose 100 06/21/17 12:35: WBC 18.5 H, RBC 3.32 L, Hgb 10.0 L, Hct 31.1 L, MCV 93.7, MCH 30.1, MCHC 32.2, RDW 14.5, RDW Differential 50.1 H, Plt Count 201, MPV 10.8, Immature Gran % (Auto) 0.300, Neut % (Auto) 89.4 H, Lymph % (Auto) 4.9 L, [place] % (Auto) 4.8, Eos % (Auto) 0.5, Baso % (Auto) 0.1, Absolute Neuts (auto) 16.5 H, Absolute Lymphs (auto) 0.91, Total Counted Not Reportable 06/21/17 12:35: Sodium 135 L, Potassium 3.5, Chloride 101, Carbon Dioxide 28.0, Anion Gap 6, BUN 22 H, Creatinine 0.86, Estim Creat Clear Calc 41.26, Est GFR (MDRD) Af Amer 81, Est GFR (MDRD) Non-Af 67, BUN/Creatinine Ratio 25.5 H, Glucose 159 H, Calcium 8.1 L, Total Bilirubin 0.50, AST 115 H, ALT 82 H, Alkaline Phosphatase 243 H, Total Protein 6.0 L, Albumin 2.1 L, Globulin 3.9, Albumin/Globulin Ratio 0.5 L 06/21/17 16:10: Lactic Acid 2.3 H 06/21/17 17:04: POC Glucose 215 H 06/21/17 22:50: POC Glucose 246 H 06/22/17 06:43: POC Glucose 277 H 06/22/17 08:24: WBC 13.4 H, RBC 3.26 L, Hgb 9.8 L, Hct 30.2 L, MCV 92.6, MCH 30.1, MCHC 32.5, RDW 14.7 H, RDW Differential 49.5 H, Plt Count 254, MPV 11.0, Immature Gran % (Auto) 0.400, Neut % (Auto) 84.3 H, Lymph % (Auto) 6.9 L, [place] % (Auto) 6.4, Eos % (Auto) 1.9, Baso % (Auto) 0.1, Absolute Neuts (auto) 11.3 H, Absolute Lymphs (auto) 0.93, Total Counted Not Reportable 06/22/17 08:24: Lactic Acid 1.3 Current Medications Acetaminophen (Tylenol) 650 mg PO Q6H PRN PRN PRN Reason: PAIN Last Admin: 06/22/17 05:50 Dose: 650 mg Apixaban (Eliquis) 2.5 mg PO BID [facility] Last Admin: 06/21/17 22:40 Dose: 2.5 mg Aspirin (Aspirin, Baby) 81 mg PO DAILY@0800 [facility] Last Admin: 06/21/17 10:54 Dose: 81 mg Dextrose (D50w Syringe) 0 gm IV X1 PRN; Protocol PRN Reason: HYPOGLYCEMIA Last Admin: 06/21/17 05:48 Dose: 50 gm Glucagon () 1 mg IM .X1 PRN PRN Reason: Hypoglycemia Piperacillin Sod/Tazobactam Sod (Zosyn) 3.375 gm in 50 mls @ 12.5 mls/hr IV Q8 [facility] Last Admin: 06/22/17 05:24 Dose: 12.5 mls/hr Vancomycin HCl () 500 mg in 100 mls @ 100 mls/hr IV Q12H [facility] Last Admin: 06/21/17 22:39 Dose: 100 mls/hr Insulin Aspart (Novolog Flexpen (Bkc)) 0 units SC ACHS [facility] PRN Reason: Protocol Last Admin: 06/21/17 22:52 Dose: 4 u Metoclopramide HCl (Reglan) 5 mg PO TIDAC [facility] Last Admin: 06/22/17 06:26 Dose: Not Given Morphine Sulfate () 2 mg IV Q2H PRN PRN PRN Reason: SEVERE PAIN (6-10/10) Last Admin: 06/19/17 06:14 Dose: 2 mg Neomycin/Polymyxin/Bacitracin (Neosporin) 1 applic EACH EYE Q4HWA [facility] Last Admin: 06/22/17 05:52 Dose: 1 applic Nutritional Formula (Lactose Free) (Glucerna Shake) 120 ml PO 4X/DAY [facility] Last Admin: 06/21/17 22:41 Dose: Not Given Nystatin (Nystatin) 500,000 unit PO 4X/DAY [facility] Last Admin: 06/21/17 22:43 Dose: 500,000 unit Ondansetron HCl (Zofran) 4 mg IV Q4H PRN PRN PRN Reason: NAUSEA Last Admin: 06/19/17 12:39 Dose: 4 mg Senna/Docusate Sodium (Senokot-S, Audra-Colace) 2 tablet PO BID [facility] Last Admin: 06/21/17 22:39 Dose: Not Given Sodium Chloride ([place] Nasal [place]) 2 spray NASAL Q4H PRN PRN PRN Reason: NASAL DRYNESS Sodium Chloride () 5 - 30 ml IV UD PRN PRN Reason: SALINE FLUSH Medical Necessity - Tobacco Use Smoking Status: Former smoker Assessment/Plan Active and Suspected Problems (Last Updated 06/11/17 @ 17:02 by ELLIOT Moore) DKA (diabetic ketoacidoses) (Acute) Periorbital cellulitis of left eye (Acute) 81 year old F with history of type 1 diabetes mellitus, right heart failure, valvular heart disease and paroxysmal A. fib admitted with dehydration, generalized weakness and tiredness ongoing for last 4 days. Patient was admitted initially to ICU and managed as DKA and later transferred to the floor. 1. Sepsis secondary to left preseptal cellulitis, improving with IV vancomycin and Zosyn, leukocytosis or coming down, will continue on the same with eye hygiene, follow-up on CBCD in the morning. 2. Acute on chronic systolic congestive heart failure from fluid overload, resolved 3. DKA with history of type 1 diabetes mellitus, exact etiology unclear, had episodes of hypoglycemia, now blood sugars are improving with increasing oral intake, will discontinue D5 normal saline, will start patient on Levemir 10 mg subcu twice daily as well as NovoLog 5 units pre-meal 3 times daily as well as insulin sliding scale and continue to monitor blood sugars closely. 4. Constipation, resolved 5. Acute kidney injury, prerenal etiology due to intravascular volume depletion secondary to DKA, resolved 6. Paroxysmal A. fib, on amiodarone and Eliquis 7. Recent admission with bilateral lower extremity DVT, on Eliquis. 8. Hypertension, BP is controlled, meds on hold. 9. DVT prophylaxis- on Eliquis. Code Visit Inpatient E&M: 05129 Subs Hosp L3
[2017-06-22 12:06] LABS: Bedside Glucose 491 mg/dL (70-110)
[2017-06-22 13:17] LABS: Glucose 464 mg/dL (74-106)
--- NOTE | 2017-06-22 14:11 | PN.ID_ITS ---
Patient Problems: Active and Suspected Problems (Last Updated 06/11/17 @ 17:02 by ELLIOT Moore) DKA (diabetic ketoacidoses) (Acute) Periorbital cellulitis of left eye (Acute) Objective: Feeling better today, no fever. No n/v/d. Eye less swollen. - Physical Exam General: Alert, Cooperative HEENT: - - L eyelid with diffuse swelling, redness Lungs: Clear to auscultation, Normal air movement Cardiovascular: Regular rate, Regular Rhythm Abdomen: Soft, Non Tender, Non-Distended Skin: No rashes - no other rash Vital Signs Temp Pulse Resp BP Pulse Ox 97.5 F L 66 12 144/70 H 93 06/22/17 09:05 06/22/17 11:08 06/22/17 09:05 06/22/17 09:05 06/22/17 09:50 Oxygen Flow Rate (L/min) 2 Oxygen Delivery Method Room Air Weight: 54.3 kg Body Mass Index (BMI) 19.9 Finger Stick Blood Glucose 124 Intake and Output for Last 24 Hours 06/20/17 06/21/17 06/22/17 23:59 23:59 23:59 Intake Total 1712 / 1712 2570.6 / 2570.6 604 / 604 Output Total 1250 / 1250 300 / 300 200 / 200 Balance 462 / 462 2270.6 / 2270.6 404 / 404 Microbiology Past 72 Hours 06/20/17 03:35 Urine Culture - Preliminary Urine Catheter - Catheter Culture exhibits no growth. 06/19/17 11:05 Blood Culture - Preliminary Blood Culture (Wb) - Left Forearm No growth in 48 hours. 06/19/17 09:37 Blood Culture - Preliminary Blood Culture (Wb) - Right Hand No growth in 48 hours. 06/20/17 03:35 Streptococcus pneumoniae Antigen (M - Final Urine Catheter - Catheter 06/20/17 03:35 Legionella Antigen - Final Urine Catheter - Catheter Laboratory Tests Past 24 Hrs 06/21/17 06/22/17 06/22/17 16:10 08:24 08:24 WBC 13.4 H RBC 3.26 L Hgb 9.8 L Hct 30.2 L MCV 92.6 MCH 30.1 MCHC 32.5 RDW 14.7 H RDW Differential 49.5 H Plt Count 254 MPV 11.0 Immature Gran % (Auto) 0.400 Neut % (Auto) 84.3 H Lymph % (Auto) 6.9 L [place] % (Auto) 6.4 Eos % (Auto) 1.9 Baso % (Auto) 0.1 Absolute Neuts (auto) 11.3 H Absolute Lymphs (auto) 0.93 Total Counted Not Reportable Glucose Lactic Acid 2.3 H 1.3 06/22/17 12:43 WBC RBC Hgb Hct MCV MCH MCHC RDW RDW Differential Plt Count MPV Immature Gran % (Auto) Neut % (Auto) Lymph % (Auto) [place] % (Auto) Eos % (Auto) Baso % (Auto) Absolute Neuts (auto) Absolute Lymphs (auto) Total Counted Glucose 464 H* Lactic Acid POC Glucose 06/22/17 06/22/17 06/21/17 12:00 06:43 22:50 POC Glucose 491 H* 277 H 246 H 06/21/17 17:04 POC Glucose 215 H Medical Necessity - Tobacco Use Smoking Status: Former smoker Route of nutrition/ use of supplements: [] Nutritional Intake: [] IV Site: [] Del Castillo Catheter: [] - Assessment/Plan Antibiotics: [] Assessment/Plan: [] Active and Suspected Problems (Last Updated 06/11/17 @ 17:02 by ELLIOT Moore) DKA (diabetic ketoacidoses) (Acute) L periorbital cellulitis - Added vanc for MRSA coverage, now wbc, lactate, and exam improving. Continue zosyn. MRI showed no deeper involvement. 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
[2017-06-22 14:16] LABS: Bedside Glucose 407 mg/dL (70-110)
[2017-06-22] MEDS: 0.9% NaCl Peripheral Flush Adult/Peds IV (15:13)
[2017-06-22 18:21] LABS: Bedside Glucose 266 mg/dL (70-110)
[2017-06-22 23:01] LABS: Bedside Glucose 211 mg/dL (70-110)
[2017-06-23] VITALS (10 sets, daily range): BP systolic 125–141; BP diastolic 56–74; PULSE 62–70; RESP 12–16; TEMP 36.4–36.6; O2SAT 94–99
--- NOTE | 2017-06-23 04:19 | PCM.RX.CS ---
Consult Pharmacy has been consulted to manage selected antiobiotic: Vancomycin Type of Consult: Follow-up Suspected Infection: Skin/Soft tissue Labs: Sodium 135 mmol/L (136-145) L 06/21/17 12:35 Potassium 3.5 mmol/L (3.5-5.1) 06/21/17 12:35 Chloride 101 mmol/L (98-107) 06/21/17 12:35 Carbon Dioxide 28.0 mmol/L (21.0-32.0) 06/21/17 12:35 Anion Gap 6 (5-15) 06/21/17 12:35 BUN 22 mg/dL (7-18) H 06/21/17 12:35 Creatinine 0.86 mg/dL (0.55-1.02) 06/21/17 12:35 Est GFR (MDRD) Af Amer 81 mL/min (>60) 06/21/17 12:35 Est GFR (MDRD) Non-Af 67 mL/min (>60) 06/21/17 12:35 BUN/Creatinine Ratio 25.5 RATIO (10-20) H 06/21/17 12:35 Glucose 464 mg/dL (74-106) H* 06/22/17 12:43 Vancomycin Trough 10.0 ug/mL (5.0-15.0) 06/22/17 21:15 Microbiology: Microbiology 06/20/17 03:35 Urine Catheter - Catheter Urine Culture - Preliminary Culture exhibits no growth. 06/19/17 11:05 Blood Culture (Wb) - Left Forearm Blood Culture - Preliminary No growth in 48 hours. 06/19/17 09:37 Blood Culture (Wb) - Right Hand Blood Culture - Preliminary No growth in 48 hours. 06/20/17 03:35 Urine Catheter - Catheter Streptococcus pneumoniae Antigen (M - Final 06/20/17 03:35 Urine Catheter - Catheter Legionella Antigen - Final Goal Trough: 15-20 mcg/mL Pharmacy Plan for Drug Dosing: Pharmacy Service will continue to monitor and adjust dosing as required. Medications Vancomycin HCl 750 mg/ Sodium (Chloride) 265 mls @ 265 mls/hr IV Q12H [facility] Follow-Up Labs: Trough Vancomycin Labs to be done on [date and time ordered]: 06/24/17@2200
--- NOTE | 2017-06-23 04:22 | PHA.PHARE_ITS ---
Consult Pharmacy has been consulted to manage selected antiobiotic: Vancomycin Type of Consult: Follow-up Suspected Infection: Skin/Soft tissue Labs: Sodium 135 mmol/L (136-145) L 06/21/17 12:35 Potassium 3.5 mmol/L (3.5-5.1) 06/21/17 12:35 Chloride 101 mmol/L (98-107) 06/21/17 12:35 Carbon Dioxide 28.0 mmol/L (21.0-32.0) 06/21/17 12:35 Anion Gap 6 (5-15) 06/21/17 12:35 BUN 22 mg/dL (7-18) H 06/21/17 12:35 Creatinine 0.86 mg/dL (0.55-1.02) 06/21/17 12:35 Est GFR (MDRD) Af Amer 81 mL/min (>60) 06/21/17 12:35 Est GFR (MDRD) Non-Af 67 mL/min (>60) 06/21/17 12:35 BUN/Creatinine Ratio 25.5 RATIO (10-20) H 06/21/17 12:35 Glucose 464 mg/dL (74-106) H* 06/22/17 12:43 Vancomycin Trough 10.0 ug/mL (5.0-15.0) 06/22/17 21:15 Microbiology: Microbiology 06/20/17 03:35 Urine Catheter - Catheter Urine Culture - Preliminary Culture exhibits no growth. 06/19/17 11:05 Blood Culture (Wb) - Left Forearm Blood Culture - Preliminary No growth in 48 hours. 06/19/17 09:37 Blood Culture (Wb) - Right Hand Blood Culture - Preliminary No growth in 48 hours. 06/20/17 03:35 Urine Catheter - Catheter Streptococcus pneumoniae Antigen ( M - Final 06/20/17 03:35 Urine Catheter - Catheter Legionella Antigen - Final Goal Trough: 15-20 mcg/mL Pharmacy Plan for Drug Dosing: Pharmacy Service will continue to monitor and adjust dosing as required. Medications Vancomycin HCl 750 mg/ Sodium (Chloride) 265 mls @ 265 mls/hr IV Q12H [facility] Follow-Up Labs: Trough Vancomycin Labs to be done on [date and time ordered]: 06/24/17@2200
[2017-06-23 06:29] LABS: Absolute Lymphocyte Count 1.59 X10^3/ul (0.83-4.51); Absolute Neutrophil Count 6.8 X10^3/uL (2.0-7.7); Basophil# 0.02 X10^3/uL; Basophil% 0.2 % (0-1); Eosinophil# 0.31 X10^3/uL; Eosinophils% 3.2 % (0-5); Hematocrit 32.3 % (37-47); Hemoglobin 10.8 g/dl (12.0-15.0); Lymphocyte # 1.59 X10^3/ul (4.0); Lymphocyte % 16.2 % (19-41); Mean Corp Hgb Conc 33.4 g/gl (32-36); Mean Corpuscular Hgb 30.6 pg (27.0-32.0); Mean Corpuscular Volume 91.5 fL (81-99); Mean Platelet Vol. 11.1 fl (6.2-12.0); Monocyte# 1.02 X10^3/uL; Monocyte% 10.4 % (0-10); Neutrophil # 6.76 X10^3/uL (2.7-7.7); Neutrophil % 68.7 % (47-70); Platelet Count 330 K/mm3 (150-450); RBC Distribution Width CV 14.6 % (11.6-14.6); RBC Distribution Width SD 47.7 fl (35.1-43.9); Red Blood Count 3.53 M/mm3 (4.2-5.4); White Blood Count 9.8 K/mm3 (4.4-11.0)
[2017-06-23] MEDS: Piperacil/Tazobactam 3.375 GM/50 ML ML IV ×3 (06:31→23:32)
[2017-06-23] MEDS: Neomycin/Bacitracin/Polymyxin Opth. Ointment 1 APPLIC EACH EYE ×5 (06:31→23:11)
[2017-06-23 06:50] LABS: POSITIVE COUNT NO; POSITIVE DIFFERENTIAL NO; POSITIVE MORPHOLOGY NO
[2017-06-23 06:50] LABS: Bedside Glucose 106 mg/dL (70-110)
[2017-06-23 06:53] LABS: Anion Gap 6 (5-15); BUN 19 mg/dL (7-18); BUN/Creat Ratio 25.6 RATIO (10-20); Calcium,Total 8.5 mg/dL (8.5-10.1); Chloride 104 mmol/L (98-107); Creatinine, Serum 0.74 mg/dL (0.55-1.02); EST Glomerular Filtration Rate 80 mL/min (>60); Est Glom Filt Rate - Afr Amer 97 mL/min (>60); Estimated Creatinine Clearance 35.49 ml/min; Glucose 85 mg/dL (74-106); Potassium 3.5 mmol/L (3.5-5.1); Sodium Level 138 mmol/L (136-145)
[2017-06-23] MEDS: NYSTATIN 500,000 UNIT/5 ML UDC 500000 UNIT PO (09:16)
[2017-06-23] MEDS: Aspirin 81 MG TAB.CHEW PO (09:19)
[2017-06-23] MEDS: Glucerna Shake 120 ML LIQUID PO (09:19)
[2017-06-23] MEDS: APIXABAN 2.5 MG TABLET PO ×2 (09:19→23:27)
--- NOTE | 2017-06-23 10:26 | CASEMGMT ---
This RN CM to room to f/u with pt regarding discharge planning at this time. Advised pt that therapy is recommending SNF vs further skilled therapy, voices understanding. Pt refuses SNF placement at this time but is willing to consider HHC. Advised pt that this RN CM will check on in-network HHC companies and let her know, voices understanding. Pt voices no further questions/concerns at this time. SStaten JULIO CESAR WALKER
[2017-06-23] MEDS: Metoclopramide 10 MG/10 ML UDC 5 MG PO (12:35)
[2017-06-23 13:00] LABS: Bedside Glucose 293 mg/dL (70-110)
--- NOTE | 2017-06-23 14:18 | PCM.PN.ID ---
Patient Problems: Active and Suspected Problems (Last Updated 06/11/17 @ 17:02 by ELLIOT Moore) DKA (diabetic ketoacidoses) (Acute) Periorbital cellulitis of left eye (Acute) Subjective: Feeling better, but still unable to open eye. No fever, no n/v/d. - Physical Exam General: Alert, Cooperative Lungs: Clear to auscultation, Normal air movement Cardiovascular: Regular rate, Regular Rhythm Abdomen: Soft, Non Tender, Non-Distended Skin: - - L eyelid with diffuse redness, swelling, tenderness Vital Signs Temp Pulse Resp BP Pulse Ox 97.5 F L 70 16 134/67 H 94 06/23/17 09:09 06/23/17 11:26 06/23/17 09:09 06/23/17 09:09 06/23/17 09:09 Oxygen Flow Rate (L/min) 2 Oxygen Delivery Method Room Air Weight: 54.3 kg Body Mass Index (BMI) 19.9 Finger Stick Blood Glucose 124 Intake and Output for Last 24 Hours 06/21/17 06/22/17 06/23/17 23:59 23:59 23:59 Intake Total 2570.6 / 2570.6 1368.6 / 1368.6 893 / 893 Output Total 300 / 300 600 / 600 300 / 300 Balance 2270.6 / 2270.6 768.6 / 768.6 593 / 593 Microbiology Past 72 Hours 06/20/17 03:35 Urine Culture - Final Urine Catheter - Catheter Culture exhibits no growth. 06/19/17 11:05 Blood Culture - Preliminary Blood Culture (Wb) - Left Forearm No growth in 48 hours. 06/19/17 09:37 Blood Culture - Preliminary Blood Culture (Wb) - Right Hand No growth in 48 hours. 06/20/17 03:35 Streptococcus pneumoniae Antigen (M - Final Urine Catheter - Catheter 06/20/17 03:35 Legionella Antigen - Final Urine Catheter - Catheter Laboratory Tests Past 24 Hrs 06/22/17 06/23/17 06/23/17 21:15 06:00 06:00 WBC 9.8 RBC 3.53 L Hgb 10.8 L Hct 32.3 L MCV 91.5 MCH 30.6 MCHC 33.4 RDW 14.6 RDW Differential 47.7 H Plt Count 330 MPV 11.1 Immature Gran % (Auto) 1.300 H Neut % (Auto) 68.7 Lymph % (Auto) 16.2 L [place] % (Auto) 10.4 H Eos % (Auto) 3.2 Baso % (Auto) 0.2 Absolute Neuts (auto) 6.8 Absolute Lymphs (auto) 1.59 Total Counted Not Reportable Sodium 138 Potassium 3.5 Chloride 104 Carbon Dioxide 28.0 Anion Gap 6 BUN 19 H Creatinine 0.74 Estim Creat Clear Calc 35.49 Est GFR (MDRD) Af Amer 97 Est GFR (MDRD) Non-Af 80 BUN/Creatinine Ratio 25.6 H Glucose 85 Calcium 8.5 Vancomycin Trough 10.0 POC Glucose 06/23/17 06/23/17 06/22/17 12:32 06:36 22:54 POC Glucose 293 H 106 211 H 06/22/17 17:39 POC Glucose 266 H Medical Necessity - Tobacco Use Smoking Status: Former smoker Route of nutrition/ use of supplements: [] Nutritional Intake: [] IV Site: [] Del Castillo Catheter: [] - Assessment/Plan Antibiotics: [] Assessment/Plan: [] Active and Suspected Problems (Last Updated 06/11/17 @ 17:02 by ELLIOT Moore) DKA (diabetic ketoacidoses) (Acute) L periorbital cellulitis - Added vanc for MRSA coverage, now wbc, lactate, and exam improving. Continue vanc/zosyn. MRI showed no deeper involvement. Plan will be for her to go home on po abx eventually. will follow
[2017-06-23 16:36] LABS: Bedside Glucose 170 mg/dL (70-110)
--- NOTE | 2017-06-23 17:42 | PCM.PN.HOSP ---
Patient Problems: Active and Suspected Problems (Last Updated 06/11/17 @ 17:02 by ELLIOT Moore) DKA (diabetic ketoacidoses) (Acute) Periorbital cellulitis of left eye (Acute) Subjective: Patient was seen and examined. Still unable to open the left eye. Lots of serosanguineous to bloody discharge from the eye. Denies any headaches or dizziness or fever or chills. Overall feels much improved. Objective: PHYSICAL EXAM: General: Alert, Oriented x3, Cooperative, No apparent distress HEENT: Normocephalic, - - Improvement in Left eye and periorital swelling and erythema Neck: Supple Lungs: Clear to auscultation, Normal air movement Cardiovascular: Regular rate, Regular Rhythm, Normal S1, Normal S2, No murmurs Abdomen: Bowel Sounds Present, Soft, Non Tender, Non-Distended, No Hepato-splenomegaly, Obese Extremities: No edema Skin: No rashes, No breakdown Musculoskeletal: No Tenderness to Palpation of Joints or Extremities Lymphatic: No Cervical, Supraclavicular, or Inguinal Adenopathy Neurological: Cranial nerves II-XII grossly intact, Neuro grossly intact Psych/Mental Status: Normal Affect, Appropriate Vitals/I&O's: Vital Signs Temp Pulse Resp BP Pulse Ox 97.8 F 68 16 141/74 H 99 06/23/17 15:09 06/23/17 15:16 06/23/17 15:09 06/23/17 15:09 06/23/17 15:09 Oxygen Flow Rate (L/min) 2 Oxygen Delivery Method Room Air Weight: 54.3 kg Body Mass Index (BMI) 19.9 Finger Stick Blood Glucose 124 Intake and Output for Last 24 Hours 06/21/17 06/22/17 06/23/17 23:59 23:59 23:59 Intake Total 2570.6 / 2570.6 1368.6 / 1368.6 893 / 893 Output Total 300 / 300 600 / 600 300 / 300 Balance 2270.6 / 2270.6 768.6 / 768.6 593 / 593 Microbiology Past 72 Hours 06/20/17 03:35 Urine Catheter - Catheter Urine Culture - Final Culture exhibits no growth. 06/19/17 11:05 Blood Culture (Wb) - Left Forearm Blood Culture - Preliminary No growth in 48 hours. 06/19/17 09:37 Blood Culture (Wb) - Right Hand Blood Culture - Preliminary No growth in 48 hours. 06/20/17 03:35 Urine Catheter - Catheter Streptococcus pneumoniae Antigen (M - Final 06/20/17 03:35 Urine Catheter - Catheter Legionella Antigen - Final Laboratory Results 06/22/17 17:39: POC Glucose 266 H 06/22/17 21:15: Vancomycin Trough 10.0 06/22/17 22:54: POC Glucose 211 H 06/23/17 06:00: WBC 9.8, RBC 3.53 L, Hgb 10.8 L, Hct 32.3 L, MCV 91.5, MCH 30.6, MCHC 33.4, RDW 14.6, RDW Differential 47.7 H, Plt Count 330, MPV 11.1, Immature Gran % (Auto) 1.300 H, Neut % (Auto) 68.7, Lymph % (Auto) 16.2 L, [place] % (Auto) 10.4 H, Eos % (Auto) 3.2, Baso % (Auto) 0.2, Absolute Neuts (auto) 6.8, Absolute Lymphs (auto) 1.59, Total Counted Not Reportable 06/23/17 06:00: Sodium 138, Potassium 3.5, Chloride 104, Carbon Dioxide 28.0, Anion Gap 6, BUN 19 H, Creatinine 0.74, Estim Creat Clear Calc 35.49, Est GFR (MDRD) Af Amer 97, Est GFR (MDRD) Non-Af 80, BUN/Creatinine Ratio 25.6 H, Glucose 85, Calcium 8.5 06/23/17 06:36: POC Glucose 106 06/23/17 12:32: POC Glucose 293 H 06/23/17 16:20: POC Glucose 170 H Current Medications Acetaminophen (Tylenol) 650 mg PO Q6H PRN PRN PRN Reason: PAIN Last Admin: 06/22/17 05:50 Dose: 650 mg Apixaban (Eliquis) 2.5 mg PO BID [facility] Last Admin: 06/23/17 09:19 Dose: 2.5 mg Aspirin (Aspirin, Baby) 81 mg PO DAILY@0800 [facility] Last Admin: 06/23/17 09:19 Dose: 81 mg Dextrose (D50w Syringe) 0 gm IV X1 PRN; Protocol PRN Reason: HYPOGLYCEMIA Last Admin: 06/21/17 05:48 Dose: 50 gm Glucagon () 1 mg IM .X1 PRN PRN Reason: Hypoglycemia Piperacillin Sod/Tazobactam Sod (Zosyn) 3.375 gm in 50 mls @ 12.5 mls/hr IV Q8 [facility] Last Admin: 06/23/17 14:34 Dose: 12.5 mls/hr Vancomycin HCl 750 mg/ (Dextrose) 265 mls @ 265 mls/hr IV Q12H [facility] Last Admin: 06/23/17 09:19 Dose: 265 mls/hr Insulin Aspart (Novolog Flexpen (Bkc)) 0 units SC ACHS THUAN PRN Reason: Protocol Last Admin: 06/23/17 12:34 Dose: 6 u Insulin Aspart (Novolog Flexpen (Bkc)) 5 units SC TIDAC [facility] Last Admin: 06/23/17 12:34 Dose: 5 units Insulin Detemir (Levemir (Bkc)) 10 units SC BID [facility] Last Admin: 06/23/17 09:16 Dose: 10 u Metoclopramide HCl (Reglan) 5 mg PO TIDAC [facility] Last Admin: 06/23/17 12:35 Dose: 5 mg Morphine Sulfate () 2 mg IV Q2H PRN PRN PRN Reason: SEVERE PAIN (6-10/10) Last Admin: 06/19/17 06:14 Dose: 2 mg Neomycin/Polymyxin/Bacitracin (Neosporin) 1 applic EACH EYE Q4HWA [facility] Last Admin: 06/23/17 14:35 Dose: 1 applic Nutritional Formula (Lactose Free) (Glucerna Shake) 120 ml PO 4X/DAY [facility] Last Admin: 06/23/17 14:35 Dose: Not Given Nystatin (Nystatin) 500,000 unit PO 4X/DAY [facility] Last Admin: 06/23/17 14:35 Dose: Not Given Ondansetron HCl (Zofran) 4 mg IV Q4H PRN PRN PRN Reason: NAUSEA Last Admin: 06/19/17 12:39 Dose: 4 mg Senna/Docusate Sodium (Senokot-S, Audra-Colace) 2 tablet PO BID [facility] Last Admin: 06/23/17 09:16 Dose: Not Given Sodium Chloride ([place] Nasal [place]) 2 spray NASAL Q4H PRN PRN PRN Reason: NASAL DRYNESS Sodium Chloride () 5 - 30 ml IV UD PRN PRN Reason: SALINE FLUSH Last Admin: 06/22/17 15:13 Dose: 10 ml Medical Necessity - Tobacco Use Smoking Status: Former smoker Assessment/Plan Active and Suspected Problems (Last Updated 06/11/17 @ 17:02 by ELLIOT Moore) DKA (diabetic ketoacidoses) (Acute) Periorbital cellulitis of left eye (Acute) 81 year old F with history of type 1 diabetes mellitus, right heart failure, valvular heart disease and paroxysmal A. fib admitted with dehydration, generalized weakness and tiredness ongoing for last 4 days. Patient was admitted initially to ICU and managed as DKA and later transferred to the floor. 1. Sepsis secondary to left preseptal cellulitis, very slow improvement with IV vancomycin and Zosyn, leukocytosis is resolved, will continue on the same antibiotics, ID following. 2. Acute on chronic systolic congestive heart failure from fluid overload, resolved 3. DKA with history of type 1 diabetes mellitus, exact etiology unclear, had episodes of hypoglycemia, now blood sugars are improving with increasing oral intake, will discontinue D5 normal saline, will start patient on Levemir 10 mg subcu twice daily as well as NovoLog 5 units pre-meal 3 times daily as well as insulin sliding scale and continue to monitor blood sugars closely. Blood sugars are improved 4. Constipation, resolved 5. Acute kidney injury, prerenal etiology due to intravascular volume depletion secondary to DKA, resolved 6. Paroxysmal A. fib, on amiodarone and Eliquis 7. Recent admission with bilateral lower extremity DVT, on Eliquis. 8. Hypertension, BP is controlled, meds on hold. 9. DVT prophylaxis- on Eliquis. Code Visit Inpatient E&M: 37015 Subs Hosp L2
[2017-06-23] MEDS: 0.9% NaCl Peripheral Flush Adult/Peds IV (21:59)
[2017-06-23] MEDS: Acetaminophen 325 MG Tablet 650 MG PO (23:30)
[2017-06-23 23:31] LABS: Bedside Glucose 153 mg/dL (70-110)
[2017-06-24] VITALS (10 sets, daily range): BP systolic 114–164; BP diastolic 54–76; PULSE 59–76; RESP 16–18; TEMP 36.3–36.8; O2SAT 96–98
[2017-06-24] MEDS: Dextrose 50%-Water 25 GM/50 ML DISP.SYRIN IV (03:21)
[2017-06-24 03:36] LABS: Bedside Glucose 29 mg/dL (70-110)
[2017-06-24 06:06] LABS: Bedside Glucose 51 mg/dL (70-110)
[2017-06-24] MEDS: 0.9% NaCl Peripheral Flush Adult/Peds IV (06:25)
[2017-06-24] MEDS: Piperacil/Tazobactam 3.375 GM/50 ML ML IV ×3 (06:25→23:39)
[2017-06-24] MEDS: Neomycin/Bacitracin/Polymyxin Opth. Ointment 1 APPLIC EACH EYE ×5 (06:26→22:18)
[2017-06-24 06:56] LABS: Bedside Glucose 49 mg/dL (70-110)
[2017-06-24 06:56] LABS: Bedside Glucose 79 mg/dL (70-110)
[2017-06-24 07:05] LABS: Bedside Glucose 204 mg/dL (70-110)
[2017-06-24 07:05] LABS: Bedside Glucose 207 mg/dL (70-110)
[2017-06-24 07:06] LABS: Absolute Lymphocyte Count 1.78 X10^3/ul (0.83-4.51); Absolute Neutrophil Count 6.5 X10^3/uL (2.0-7.7); Basophil# 0.02 X10^3/uL; Basophil% 0.2 % (0-1); Eosinophil# 0.25 X10^3/uL; Eosinophils% 2.5 % (0-5); Hematocrit 32.9 % (37-47); Lymphocyte # 1.78 X10^3/ul (4.0); Lymphocyte % 17.5 % (19-41); Mean Corp Hgb Conc 33.4 g/gl (32-36); Mean Corpuscular Hgb 30.6 pg (27.0-32.0); Mean Corpuscular Volume 91.6 fL (81-99); Mean Platelet Vol. 10.6 fl (6.2-12.0); Monocyte% 13.7 % (0-10); Neutrophil # 6.52 X10^3/uL (2.7-7.7); Neutrophil % 63.8 % (47-70); Platelet Count 345 K/mm3 (150-450); RBC Distribution Width CV 14.7 % (11.6-14.6); RBC Distribution Width SD 47.9 fl (35.1-43.9); Red Blood Count 3.59 M/mm3 (4.2-5.4); White Blood Count 10.2 K/mm3 (4.4-11.0)
[2017-06-24 07:13] LABS: POSITIVE COUNT YES; POSITIVE DIFFERENTIAL NO; POSITIVE MORPHOLOGY YES
[2017-06-24] MEDS: Aspirin 81 MG TAB.CHEW PO (09:17)
[2017-06-24] MEDS: APIXABAN 2.5 MG TABLET PO ×2 (09:18→22:18)
[2017-06-24] MEDS: Metoclopramide 10 MG/10 ML UDC 5 MG PO (11:40)
[2017-06-24] MEDS: Furosemide 20 MG Tablet PO (11:42)
[2017-06-24 11:49] LABS: Pathologist Review Reviewed
[2017-06-24 12:20] LABS: Bedside Glucose 197 mg/dL (70-110)
--- NOTE | 2017-06-24 14:20 | CASEMGMT ---
This JULIO CESAR WALKER to room to discuss HHC with pt and daughter is also at bedside. Advised pt that the following [facility] agencies are in-network for pt per [employer] website: [facility], [facility], and [facility]. Pt states would like [facility] or [facility] at this time. JULIO CESAR WALKER will call tomorrow am. Maldonado HARRELL CM
--- NOTE | 2017-06-24 14:55 | PCM.PN.ID ---
Patient Problems: Active and Suspected Problems (Last Updated 06/11/17 @ 17:02 by ELLIOT Moore) DKA (diabetic ketoacidoses) (Acute) Periorbital cellulitis of left eye (Acute) Subjective: Feeling better, but still unable to open eye. No fever. - Physical Exam General: Alert, Cooperative, No apparent distress Lungs: Clear to auscultation, Normal air movement Cardiovascular: Regular rate, Regular Rhythm Abdomen: Soft, Non Tender, Non-Distended Skin: - - L eyelid with improved swelling Vital Signs Temp Pulse Resp BP Pulse Ox 98 F 69 16 133/57 H 98 06/24/17 09:13 06/24/17 11:07 06/24/17 09:13 06/24/17 09:13 06/24/17 09:13 Oxygen Flow Rate (L/min) 2 Oxygen Delivery Method Room Air Weight: 54.7 kg Body Mass Index (BMI) 19.9 Finger Stick Blood Glucose 124 Intake and Output for Last 24 Hours 06/22/17 06/23/17 06/24/17 23:59 23:59 23:59 Intake Total 1368.6 / 1368.6 1058 / 1058 1749 / 1749 Output Total 600 / 600 300 / 300 950 / 950 Balance 768.6 / 768.6 758 / 758 799 / 799 Microbiology Past 72 Hours 06/19/17 11:05 Blood Culture - Final Blood Culture (Wb) - Left Forearm No growth in 5 days. 06/20/17 03:35 Urine Culture - Final Urine Catheter - Catheter Culture exhibits no growth. 06/19/17 09:37 Blood Culture - Preliminary Blood Culture (Wb) - Right Hand No growth in 48 hours. Laboratory Tests Past 24 Hrs 06/24/17 05:55 WBC 10.2 RBC 3.59 L Hgb 11.0 L Hct 32.9 L MCV 91.6 MCH 30.6 MCHC 33.4 RDW 14.7 H RDW Differential 47.9 H Plt Count 345 MPV 10.6 Immature Gran % (Auto) 2.300 H Neut % (Auto) 63.8 Lymph % (Auto) 17.5 L [place] % (Auto) 13.7 H Eos % (Auto) 2.5 Baso % (Auto) 0.2 Absolute Neuts (auto) 6.5 Absolute Lymphs (auto) 1.78 Total Counted Not Reportable Diff Path Review Reviewed POC Glucose 06/24/17 06/24/17 06/24/17 11:38 06:42 06:21 POC Glucose 197 H 79 49 L 06/24/17 06/24/17 06/24/17 05:57 03:29 03:27 POC Glucose 51 L 207 H 204 H 06/24/17 06/23/17 06/23/17 03:09 23:09 16:20 POC Glucose 29 L* 153 H 170 H Medical Necessity - Tobacco Use Smoking Status: Former smoker Route of nutrition/ use of supplements: [] Nutritional Intake: [] IV Site: [] Del Castillo Catheter: [] - Assessment/Plan Antibiotics: [] Assessment/Plan: [] Active and Suspected Problems (Last Updated 06/11/17 @ 17:02 by ELLIOT Moore) DKA (diabetic ketoacidoses) (Acute) L periorbital cellulitis - Added vanc for MRSA coverage, now wbc, lactate, and exam steadily improving. Continue vanc/zosyn. MRI showed no deeper involvement. Plan will be for her to go home on po abx (7 more days of bactrim DS 1 tab bid and augmentin 875mg bid) eventually. will follow
[2017-06-24 16:25] LABS: Bedside Glucose 102 mg/dL (70-110)
--- NOTE | 2017-06-24 17:17 | PCM.PROGNOTE ---
<Vitaliy Gaines - Last Filed: 06/24/17 17:17> Patient Problems: Active and Suspected Problems (Last Updated 06/11/17 @ 17:02 by ELLIOT Moore) DKA (diabetic ketoacidoses) (Acute) Periorbital cellulitis of left eye (Acute) Subjective: Pt still with significant swelling, some drainage of left eye, and cannot open it still. She has no fever or chills. She has some swelling of her BL LE, R>L. No SOB. She still has some white patches on her tongue, no difficulty swallowing or pain with swallowing. Blood sugar was very low this AM. She is a T1DM who has an insulin pump. Will try to obtain this and start it here. - Physical Exam General: Alert, Oriented x3, Cooperative HEENT: Atraumatic, PERRLA, EOMI, Normocephalic Neck: Supple, No JVD, Negative Carotid Bruits Lungs: Rales Cardiovascular: Regular rate, No murmurs Abdomen: Bowel Sounds Present, Soft, Non Tender Extremities: No edema, Capillary Refill Less than 3 Seconds, Edema - 1-2+ pitting erasmo R>L Skin: No rashes, No breakdown Musculoskeletal: No Tenderness to Palpation of Joints or Extremities Neurological: Cranial nerves II-XII grossly intact Psych/Mental Status: Normal Affect, Appropriate Vital Signs Temp Pulse Resp BP Pulse Ox 97.4 F L 65 18 120/54 L 98 06/24/17 15:36 06/24/17 15:36 06/24/17 15:36 06/24/17 15:36 06/24/17 15:36 Oxygen Flow Rate (L/min) 2 Oxygen Delivery Method Room Air Weight: 54.7 kg Body Mass Index (BMI) 19.9 Finger Stick Blood Glucose 124 Intake and Output for Last 24 Hours 06/22/17 06/23/17 06/24/17 23:59 23:59 23:59 Intake Total 1368.6 / 1368.6 1058 / 1058 1749 / 1749 Output Total 600 / 600 300 / 300 950 / 950 Balance 768.6 / 768.6 758 / 758 799 / 799 Microbiology Past 72 Hours 06/19/17 11:05 Blood Culture - Final Blood Culture (Wb) - Left Forearm No growth in 5 days. 06/20/17 03:35 Urine Culture - Final Urine Catheter - Catheter Culture exhibits no growth. 06/19/17 09:37 Blood Culture - Preliminary Blood Culture (Wb) - Right Hand No growth in 48 hours. Laboratory Tests Past 24 Hrs 06/24/17 05:55 WBC 10.2 RBC 3.59 L Hgb 11.0 L Hct 32.9 L MCV 91.6 MCH 30.6 MCHC 33.4 RDW 14.7 H RDW Differential 47.9 H Plt Count 345 MPV 10.6 Immature Gran % (Auto) 2.300 H Neut % (Auto) 63.8 Lymph % (Auto) 17.5 L [place] % (Auto) 13.7 H Eos % (Auto) 2.5 Baso % (Auto) 0.2 Absolute Neuts (auto) 6.5 Absolute Lymphs (auto) 1.78 Total Counted Not Reportable Diff Path Review Reviewed POC Glucose 06/24/17 06/24/17 06/24/17 16:20 11:38 06:42 POC Glucose 102 197 H 79 06/24/17 06/24/17 06/24/17 06:21 05:57 03:29 POC Glucose 49 L 51 L 207 H 06/24/17 06/24/17 06/23/17 03:27 03:09 23:09 POC Glucose 204 H 29 L* 153 H Medical Necessity - Tobacco Use Smoking Status: Former smoker Assessment/Plan Active and Suspected Problems (Last Updated 06/11/17 @ 17:02 by ELLIOT Moore) DKA (diabetic ketoacidoses) (Acute) Periorbital cellulitis of left eye (Acute) 1. Acute preseptal cellulitis - no deeper involvement per MRI. Still very swollen. NO fever or elevated WBC count now. Vanc and zosyn with plan to transition to Bactrim and Augmentin per infectious disease recommendation as outpatient. Cultures are negative to date. 2. DKA in type 1 diabetes-resolved, however she remains very fluctuant. Continue to adjust insulin regimen. If she is able to get her insulin pump will place this and start adjusting her insulin with a plan to monitor for 24 hours prior to discharge. 3. Acute on chronic systolic congestive heart failure from fluid overload-we will restart Lasix as she appears edematous with some crackles on exam. 4. Paroxysmal atrial fibrillation-amiodarone, Coreg, and Eliquis 5. History of DVTs, bilateral-Eliquis 6. Hypertension-continue current meds DVT prophylaxis: Eliquis Discharge planning: Restart insulin pump and trend glucose This patient was seen by Vitaliy Gaines PA-C under the supervision of Doctor Hans. <Ana Maxwell - Last Filed: 06/24/17 17:32> - Physical Exam Vital Signs Temp Pulse Resp BP Pulse Ox 97.4 F L 65 18 120/54 L 98 06/24/17 15:36 06/24/17 15:36 06/24/17 15:36 06/24/17 15:36 06/24/17 15:36 Oxygen Flow Rate (L/min) 2 Oxygen Delivery Method Room Air Weight: 54.7 kg Body Mass Index (BMI) 19.9 Finger Stick Blood Glucose 124 Intake and Output for Last 24 Hours 06/22/17 06/23/17 06/24/17 23:59 23:59 23:59 Intake Total 1368.6 / 1368.6 1058 / 1058 1749 / 1749 Output Total 600 / 600 300 / 300 950 / 950 Balance 768.6 / 768.6 758 / 758 799 / 799 Microbiology Past 72 Hours 06/19/17 11:05 Blood Culture - Final Blood Culture (Wb) - Left Forearm No growth in 5 days. 06/20/17 03:35 Urine Culture - Final Urine Catheter - Catheter Culture exhibits no growth. 06/19/17 09:37 Blood Culture - Preliminary Blood Culture (Wb) - Right Hand No growth in 48 hours. Laboratory Tests Past 24 Hrs 06/24/17 05:55 WBC 10.2 RBC 3.59 L Hgb 11.0 L Hct 32.9 L MCV 91.6 MCH 30.6 MCHC 33.4 RDW 14.7 H RDW Differential 47.9 H Plt Count 345 MPV 10.6 Immature Gran % (Auto) 2.300 H Neut % (Auto) 63.8 Lymph % (Auto) 17.5 L [place] % (Auto) 13.7 H Eos % (Auto) 2.5 Baso % (Auto) 0.2 Absolute Neuts (auto) 6.5 Absolute Lymphs (auto) 1.78 Total Counted Not Reportable Diff Path Review Reviewed POC Glucose 06/24/17 06/24/17 06/24/17 16:20 11:38 06:42 POC Glucose 102 197 H 79 06/24/17 06/24/17 06/24/17 06:21 05:57 03:29 POC Glucose 49 L 51 L 207 H 06/24/17 06/24/17 06/23/17 03:27 03:09 23:09 POC Glucose 204 H 29 L* 153 H Assessment/Plan Patient was seen and examined. Agree with the interval history and physical exam as well as assessment and plan as documented above by physician educational program assistant Vitaliy Gaines. Patient appears improved, swelling of the left eye is much improved, family was at bedside. His current plan of care with the family. Her daughter will bring insulin pump was resumed tomorrow. Possibly will discharge tomorrow or Wednesday Code Visit Inpatient E&M: 76584 Subs Hosp L2
[2017-06-24 22:17] LABS: Vancomycin, Trough Level 17.8 ug/mL (5.0-15.0)
[2017-06-24 22:55] LABS: Bedside Glucose 64 mg/dL (70-110)
[2017-06-24 22:55] LABS: Bedside Glucose 79 mg/dL (70-110)
[2017-06-25] VITALS (10 sets, daily range): BP systolic 126–147; BP diastolic 58–76; PULSE 67–78; RESP 16–18; TEMP 36.2–36.9; O2SAT 95–97
[2017-06-25 02:21] LABS: Bedside Glucose 112 mg/dL (70-110)
[2017-06-25] MEDS: Piperacil/Tazobactam 3.375 GM/50 ML ML IV ×3 (05:34→23:05)
[2017-06-25] MEDS: Neomycin/Bacitracin/Polymyxin Opth. Ointment 1 APPLIC EACH EYE ×5 (05:34→22:01)
[2017-06-25] MEDS: 0.9% NaCl Peripheral Flush Adult/Peds IV (05:35)
[2017-06-25 06:27] LABS: Hematocrit 33.5 % (37-47); Hemoglobin 11.1 g/dl (12.0-15.0); Mean Corp Hgb Conc 33.1 g/gl (32-36); Mean Corpuscular Hgb 30.2 pg (27.0-32.0); Mean Corpuscular Volume 91.3 fL (81-99); Mean Platelet Vol. 10.4 fl (6.2-12.0); Platelet Count 383 K/mm3 (150-450); RBC Distribution Width CV 14.6 % (11.6-14.6); RBC Distribution Width SD 47.3 fl (35.1-43.9); Red Blood Count 3.67 M/mm3 (4.2-5.4); White Blood Count 12.3 K/mm3 (4.4-11.0)
[2017-06-25 06:28] LABS: Differential Indicated MANUAL DIFF; POSITIVE COUNT YES; POSITIVE DIFFERENTIAL YES; POSITIVE MORPHOLOGY YES
[2017-06-25 06:45] LABS: Anion Gap 8 (5-15); BUN 11 mg/dL (7-18); BUN/Creat Ratio 14.2 RATIO (10-20); Calcium,Total 7.8 mg/dL (8.5-10.1); Chloride 102 mmol/L (98-107); Creatinine, Serum 0.78 mg/dL (0.55-1.02); EST Glomerular Filtration Rate 76 mL/min (>60); Est Glom Filt Rate - Afr Amer 92 mL/min (>60); Estimated Creatinine Clearance 35.49 ml/min; Glucose 156 mg/dL (74-106); Potassium 3.8 mmol/L (3.5-5.1); Sodium Level 138 mmol/L (136-145)
[2017-06-25 07:01] LABS: Bedside Glucose 183 mg/dL (70-110)
[2017-06-25 07:11] LABS: Eosinophil 3 % (0-5); Lymphocyte 19 % (19-41); Monocyte 10 % (0-10); Neutrophil-Band 1 % (0-5); Neutrophil-Segmented 67 % (47-70); Total Cells Counted 100 (MANUAL DIFF)
[2017-06-25 07:12] LABS: Platelet Estimate ADEQUATE (ADEQ); Red Cell Morphology NORM C+C NORMAL (NORM C&C)
[2017-06-25] MEDS: Furosemide 20 MG Tablet PO (09:32)
[2017-06-25] MEDS: Aspirin 81 MG TAB.CHEW PO (09:37)
[2017-06-25] MEDS: APIXABAN 2.5 MG TABLET PO (09:38)
--- NOTE | 2017-06-25 10:44 | CASEMGMT ---
Call to [facility] and they states that [facility] is out of service area for them at this time. Call to [facility] and they state they would like referral faxed at this time. Referral faxed to [facility] at this time. Maldonado HARRELL CM
--- NOTE | 2017-06-25 11:03 | CASEMGMT ---
Green sheet placed on chart at this time with instruction for faxing/calling [facility] with d/c instructions/d/c date. Maldonado HARRELL CM
[2017-06-25 11:46] LABS: Bedside Glucose 237 mg/dL (70-110)
--- NOTE | 2017-06-25 12:17 | PCM.PN.ID ---
Patient Problems: Active and Suspected Problems (Last Updated 06/11/17 @ 17:02 by ELLIOT Moore) DKA (diabetic ketoacidoses) (Acute) Periorbital cellulitis of left eye (Acute) Subjective: Some new loose stools, no abd pain, no fever. Eye slowly improving. - Physical Exam General: Alert, Cooperative HEENT: - - L eyelid swelling and redness Lungs: Clear to auscultation, Normal air movement Cardiovascular: Regular rate, Regular Rhythm Abdomen: Soft, Non Tender, Non-Distended Skin: No rashes - no other rash Vital Signs Temp Pulse Resp BP Pulse Ox 97.8 F 73 18 137/76 H 96 06/25/17 09:18 06/25/17 11:53 06/25/17 09:18 06/25/17 09:18 06/25/17 09:18 Oxygen Flow Rate (L/min) 2 Oxygen Delivery Method Room Air Weight: 56.9 kg Body Mass Index (BMI) 19.9 Finger Stick Blood Glucose 124 Intake and Output for Last 24 Hours 06/23/17 06/24/17 06/25/17 23:59 23:59 23:59 Intake Total 1058 / 1058 2631 / 2631 910.9 / 910.9 Output Total 300 / 300 950 / 950 Balance 758 / 758 1681 / 1681 910.9 / 910.9 Microbiology Past 72 Hours 06/19/17 09:37 Blood Culture - Final Blood Culture (Wb) - Right Hand No growth in 5 days. 06/19/17 11:05 Blood Culture - Final Blood Culture (Wb) - Left Forearm No growth in 5 days. 06/20/17 03:35 Urine Culture - Final Urine Catheter - Catheter Culture exhibits no growth. Laboratory Tests Past 24 Hrs 06/24/17 06/25/17 06/25/17 21:17 06:05 06:05 WBC 12.3 H RBC 3.67 L Hgb 11.1 L Hct 33.5 L MCV 91.3 MCH 30.2 MCHC 33.1 RDW 14.6 RDW Differential 47.3 H Plt Count 383 MPV 10.4 Neut % (Auto) Not Reportable Absolute Neuts (auto) Not Reportable Total Counted 100 Neutrophils % (Manual) 67 Band Neutrophils % 1 Lymphocytes % (Manual) 19 Monocytes % (Manual) 10 Eosinophils % (Manual) 3 Diff Path Review May foll Platelet Estimate ADEQUATE RBC Morphology NORM C+C Sodium 138 Potassium 3.8 Chloride 102 Carbon Dioxide 28.0 Anion Gap 8 BUN 11 Creatinine 0.78 Estim Creat Clear Calc 35.49 Est GFR (MDRD) Af Amer 92 Est GFR (MDRD) Non-Af 76 BUN/Creatinine Ratio 14.2 Glucose 156 H Calcium 7.8 L Vancomycin Trough 17.8 H POC Glucose 06/25/17 06/25/17 06/25/17 11:40 06:52 02:11 POC Glucose 237 H 183 H 112 H 06/24/17 06/24/17 06/24/17 22:32 22:12 16:20 POC Glucose 79 64 L 102 06/24/17 11:38 POC Glucose 197 H Medical Necessity - Tobacco Use Smoking Status: Former smoker Route of nutrition/ use of supplements: [] Nutritional Intake: [] IV Site: [] Del Castillo Catheter: [] - Assessment/Plan Antibiotics: [] Assessment/Plan: [] Active and Suspected Problems (Last Updated 06/11/17 @ 17:02 by ELLIOT Moore) DKA (diabetic ketoacidoses) (Acute) L periorbital cellulitis - Added vanc for MRSA coverage, now wbc, lactate, and exam steadily improving. Continue vanc/zosyn. MRI showed no deeper involvement. Plan will be for discharge on po abx (7 more days of linezolid 600mg bid and augmentin 875mg bid). Would consider ECF placement at discharge. diarrhea - check cdiff. If (+), would start po vanc 125mg 4x/day for 2 week course. will follow, d/w Dr. Maxwell.
--- NOTE | 2017-06-25 13:21 | PN_ITS ---
<Vitaliy Gaines - Last Filed: 06/25/17 13:15> Patient Problems: Active and Suspected Problems (Last Updated 06/11/17 @ 17:02 by ELLIOT Moore) DKA (diabetic ketoacidoses) (Acute) Periorbital cellulitis of left eye (Acute) Subjective: Minimal improvement in swelling or pain. Pt cannot open eye, but is starting to see a small amount of light. Pts daughter is highly concerned about the slowness of the healing and also thinks there is more swelling in the legs. Pt feels that overall she is doing better, she is less tired and has less malaise. No fever or chills. She can move her eye under the lid. - Physical Exam General: Alert, Oriented x3, Cooperative HEENT: Atraumatic, PERRLA, EOMI, Normocephalic Oral: - - left periorbital cellulitis. Eyes cannot open. some scabbed areas medial aspect of lid. Neck: Supple, No JVD, Negative Carotid Bruits Lungs: Clear to auscultation, Normal air movement Cardiovascular: Regular rate, No murmurs Abdomen: Bowel Sounds Present, Soft, Non Tender Extremities: No edema, Capillary Refill Less than 3 Seconds, Edema - 2+ pitting edema BLE. Skin: No rashes, No breakdown Musculoskeletal: No Tenderness to Palpation of Joints or Extremities Neurological: Cranial nerves II-XII grossly intact Psych/Mental Status: Normal Affect, Appropriate Vital Signs Temp Pulse Resp BP Pulse Ox 97.8 F 73 18 137/76 H 96 06/25/17 09:18 06/25/17 11:53 06/25/17 09:18 06/25/17 09:18 06/25/17 09:18 Oxygen Flow Rate (L/min) 2 Oxygen Delivery Method Room Air Weight: 56.9 kg Body Mass Index (BMI) 19.9 Finger Stick Blood Glucose 124 Intake and Output for Last 24 Hours 06/23/17 06/24/17 06/25/17 23:59 23:59 23:59 Intake Total 1058 / 1058 2631 / 2631 910.9 / 910.9 Output Total 300 / 300 950 / 950 Balance 758 / 758 1681 / 1681 910.9 / 910.9 Microbiology Past 72 Hours 06/19/17 09:37 Blood Culture - Final Blood Culture (Wb) - Right Hand No growth in 5 days. 06/19/17 11:05 Blood Culture - Final Blood Culture (Wb) - Left Forearm No growth in 5 days. 06/20/17 03:35 Urine Culture - Final Urine Catheter - Catheter Culture exhibits no growth. Laboratory Tests Past 24 Hrs 06/24/17 06/25/17 06/25/17 21:17 06:05 06:05 WBC 12.3 H RBC 3.67 L Hgb 11.1 L Hct 33.5 L MCV 91.3 MCH 30.2 MCHC 33.1 RDW 14.6 RDW Differential 47.3 H Plt Count 383 MPV 10.4 Neut % (Auto) Not Reportable Absolute Neuts (auto) Not Reportable Total Counted 100 Neutrophils % (Manual) 67 Band Neutrophils % 1 Lymphocytes % (Manual) 19 Monocytes % (Manual) 10 Eosinophils % (Manual) 3 Diff Path Review May foll Platelet Estimate ADEQUATE RBC Morphology NORM C+C Sodium 138 Potassium 3.8 Chloride 102 Carbon Dioxide 28.0 Anion Gap 8 BUN 11 Creatinine 0.78 Estim Creat Clear Calc 35.49 Est GFR (MDRD) Af Amer 92 Est GFR (MDRD) Non-Af 76 BUN/Creatinine Ratio 14.2 Glucose 156 H Calcium 7.8 L Vancomycin Trough 17.8 H POC Glucose 06/25/17 06/25/17 06/25/17 11:40 06:52 02:11 POC Glucose 237 H 183 H 112 H 06/24/17 06/24/17 06/24/17 22:32 22:12 16:20 POC Glucose 79 64 L 102 Medical Necessity - Tobacco Use Smoking Status: Former smoker Assessment/Plan Active and Suspected Problems (Last Updated 06/11/17 @ 17:02 by ELLIOT Moore) DKA (diabetic ketoacidoses) (Acute) Periorbital cellulitis of left eye (Acute) 1. Acute preseptal cellulitis - no deeper involvement per MRI. Still very swollen with slow improvement. Ophthalmology to reevaluate pt. Small increase in white count, no fever. Vanc and zosyn with plan to transition to Linezolid and Augmentin for 7 days per infectious disease recommendation as outpatient when ready. Cultures are negative to date. 2. DKA in type 1 diabetes-resolved, however she remains very fluctuant. ADRIEN Burch met with the patient, she is to continue her current insulin regimen as ordered and refrain from restarting the pump until her vision is better. F/u in office. 3. Acute on chronic systolic congestive heart failure from fluid overload- increase lasix. 4. Paroxysmal atrial fibrillation-amiodarone, Coreg, and Eliquis 5. History of DVTs, bilateral-Eliquis 6. Hypertension-continue current meds DVT prophylaxis: Eliquis Discharge planning: minimal eye improvement. Reassess in AM. This patient was seen by Vitaliy Gaines PA-C under the supervision of Doctor Hans. <Ana Maxwell - Last Filed: 06/25/17 16:30> - Physical Exam Vital Signs Temp Pulse Resp BP Pulse Ox 97.1 F L 74 18 126/58 H 97 06/25/17 14:56 06/25/17 15:06 06/25/17 14:56 06/25/17 14:56 06/25/17 14:56 Oxygen Flow Rate (L/min) 2 Oxygen Delivery Method Room Air Weight: 56.9 kg Body Mass Index (BMI) 19.9 Finger Stick Blood Glucose 124 Intake and Output for Last 24 Hours 06/23/17 06/24/17 06/25/17 23:59 23:59 23:59 Intake Total 1058 / 1058 2631 / 2631 1260.9 / 1260.9 Output Total 300 / 300 950 / 950 Balance 758 / 758 1681 / 1681 1260.9 / 1260.9 Microbiology Past 72 Hours 06/25/17 13:25 C. difficile DNA Amplification - Final Stool 06/19/17 09:37 Blood Culture - Final Blood Culture (Wb) - Right Hand No growth in 5 days. 06/19/17 11:05 Blood Culture - Final Blood Culture (Wb) - Left Forearm No growth in 5 days. 06/20/17 03:35 Urine Culture - Final Urine Catheter - Catheter Culture exhibits no growth. Laboratory Tests Past 24 Hrs 06/24/17 06/25/17 06/25/17 21:17 06:05 06:05 WBC 12.3 H RBC 3.67 L Hgb 11.1 L Hct 33.5 L MCV 91.3 MCH 30.2 MCHC 33.1 RDW 14.6 RDW Differential 47.3 H Plt Count 383 MPV 10.4 Neut % (Auto) Not Reportable Absolute Neuts (auto) Not Reportable Total Counted 100 Neutrophils % (Manual) 67 Band Neutrophils % 1 Lymphocytes % (Manual) 19 Monocytes % (Manual) 10 Eosinophils % (Manual) 3 Diff Path Review May foll Platelet Estimate ADEQUATE RBC Morphology NORM C+C Sodium 138 Potassium 3.8 Chloride 102 Carbon Dioxide 28.0 Anion Gap 8 BUN 11 Creatinine 0.78 Estim Creat Clear Calc 35.49 Est GFR (MDRD) Af Amer 92 Est GFR (MDRD) Non-Af 76 BUN/Creatinine Ratio 14.2 Glucose 156 H Calcium 7.8 L Vancomycin Trough 17.8 H POC Glucose 06/25/17 06/25/17 06/25/17 11:40 06:52 02:11 POC Glucose 237 H 183 H 112 H 06/24/17 06/24/17 06/24/17 22:32 22:12 16:20 POC Glucose 79 64 L 102 Assessment/Plan Patient was seen and examined. Agree with the interval history and physical exam as well as assessment and plan as documented above by physician pediatric physical therapy assistant, Vitaliy Gaines. Patient appears improved, swelling of the left eye is about the same. We spent so much reassuring patient and daughter. Discussed with ID, recommend SNF for slow improvement in preseptal cellulitis. Spoke to ophthalmology, will also stop to see patient Code Visit Inpatient E&M: 40881 Subs Hosp L3
--- NOTE | 2017-06-25 13:49 | CASEMGMT ---
Social Work Physicians stating that pt would benefit from short term SNF placement. SW met with pt and pt daughter to discuss placement. SW provided a list of area SNFs that are in network with pt insurance. Pt dgt stating that she and pt son have discussed it and would like pt to remain in the hospital until her eye is cleared up. SW explained that when physicians feel pt is medically ready for d/c she will be d/c weather to home or a SNF and stay here is not indefinite. Pt verbalizes that she understands she may need SNF placement and would prefer to go to [facility]. Pt is agreeable to referral to [facility]. Phone call to Andressa at [facility] and they do have beds available. Referral faxed. Physicians notified of conversation with pt and dgt and dgt's expectations. SW to follow for d/c planning. ANTONI Carmen
--- NOTE | 2017-06-25 16:28 | CASEMGMT ---
Social Work Return call from Andressa at [facility]. She stated that there may not be a bed available now as things have changed at the facility. Pt not ready for d/c at this time. SW will follow up for d/c planning on Wednesday. Pt and family notified that SW to follow up on Wednesday. ANTONI Carmen
[2017-06-25] MEDS: Glucerna Shake 120 ML LIQUID PO (16:51)
[2017-06-25 17:01] LABS: Bedside Glucose 84 mg/dL (70-110)
[2017-06-25] MEDS: APIXABAN 5 MG TABLET PO (22:03)
[2017-06-25 22:41] LABS: Bedside Glucose 149 mg/dL (70-110)
[2017-06-26] VITALS (8 sets, daily range): BP systolic 133–150; BP diastolic 62–85; PULSE 64–81; RESP 14–18; TEMP 36.8–37.1; O2SAT 96–97
[2017-06-26] MEDS: Piperacil/Tazobactam 3.375 GM/50 ML ML IV ×2 (05:48→15:31)
[2017-06-26] MEDS: Neomycin/Bacitracin/Polymyxin Opth. Ointment 1 APPLIC EACH EYE ×4 (05:48→17:55)
[2017-06-26 06:20] LABS: Absolute Lymphocyte Count 3.27 X10^3/ul (0.83-4.51); Absolute Neutrophil Count 7.4 X10^3/uL (2.0-7.7); Basophil# 0.02 X10^3/uL; Basophil% 0.2 % (0-1); Eosinophil# 0.26 X10^3/uL; Hematocrit 36.5 % (37-47); Hemoglobin 12.1 g/dl (12.0-15.0); Lymphocyte # 3.27 X10^3/ul (4.0); Lymphocyte % 24.9 % (19-41); Mean Corp Hgb Conc 33.2 g/gl (32-36); Mean Corpuscular Hgb 30.2 pg (27.0-32.0); Monocyte% 14.5 % (0-10); Neutrophil # 7.44 X10^3/uL (2.7-7.7); Neutrophil % 56.5 % (47-70); Platelet Count 427 K/mm3 (150-450); RBC Distribution Width CV 14.4 % (11.6-14.6); RBC Distribution Width SD 47.6 fl (35.1-43.9); Red Blood Count 4.01 M/mm3 (4.2-5.4); White Blood Count 13.1 K/mm3 (4.4-11.0)
[2017-06-26 06:21] LABS: POSITIVE COUNT NO; POSITIVE DIFFERENTIAL NO; POSITIVE MORPHOLOGY NO
[2017-06-26 06:21] LABS: Bedside Glucose 37 mg/dL (70-110)
[2017-06-26 06:28] LABS: Anion Gap 7 (5-15); BUN 11 mg/dL (7-18); BUN/Creat Ratio 15.2 RATIO (10-20); Calcium,Total 8.7 mg/dL (8.5-10.1); Chloride 105 mmol/L (98-107); Creatinine, Serum 0.72 mg/dL (0.55-1.02); EST Glomerular Filtration Rate 82 mL/min (>60); Est Glom Filt Rate - Afr Amer 99 mL/min (>60); Estimated Creatinine Clearance 35.49 ml/min; Glucose 37 mg/dL (74-106); Potassium 3.8 mmol/L (3.5-5.1); Sodium Level 142 mmol/L (136-145)
[2017-06-26 06:50] LABS: Differential Comment SCANNED
[2017-06-26 07:06] LABS: Bedside Glucose 142 mg/dL (70-110)
[2017-06-26] MEDS: Aspirin 81 MG TAB.CHEW PO (08:28)
--- NOTE | 2017-06-26 08:57 | CASEMGMT ---
Tertiary hospitals in network with insurance are: [facility], [facility], [facility], [facility], [facility], [facility], and [facility].
[2017-06-26] MEDS: Furosemide 40 MG Tablet PO (10:42)
[2017-06-26] MEDS: APIXABAN 5 MG TABLET PO (10:42)
[2017-06-26 11:20] LABS: Bedside Glucose 189 mg/dL (70-110)
[2017-06-26] MEDS: Glucerna Shake 120 ML LIQUID PO ×2 (11:22→15:32)
--- NOTE | 2017-06-26 12:45 | PCM.PROGNOTE ---
<Vitaliy Gaines - Last Filed: 06/26/17 12:45> Patient Problems: Active and Suspected Problems (Last Updated 06/11/17 @ 17:02 by ELLIOT Moore) DKA (diabetic ketoacidoses) (Acute) Periorbital cellulitis of left eye (Acute) Subjective: Pt feels overall improved energy, less malaise. She however has had no further change in her eye. No improvement in swelling or pain. Still unable to open. Family is strongly requesting transfer to a tertiary center. No SOB/Cough. BLE edema improved. - Physical Exam General: Alert, Oriented x3, Cooperative HEENT: Atraumatic, PERRLA, EOMI, Normocephalic, - - left periorbital cellulitis with swelling in the eyebrow and cheek. Discharge noted medially. Unable to open eye. [place]ened[place]. Erythematous. Neck: Supple, No JVD, Negative Carotid Bruits Lungs: Clear to auscultation, Normal air movement Cardiovascular: Regular rate, No murmurs Abdomen: Bowel Sounds Present, Soft, Non Tender Extremities: No edema, Capillary Refill Less than 3 Seconds Skin: No rashes, No breakdown Musculoskeletal: No Tenderness to Palpation of Joints or Extremities Neurological: Cranial nerves II-XII grossly intact Psych/Mental Status: Normal Affect, Appropriate Vital Signs Temp Pulse Resp BP Pulse Ox 98.2 F 76 14 144/74 H 96 06/26/17 10:15 06/26/17 11:46 06/26/17 10:15 06/26/17 10:15 06/26/17 10:15 Oxygen Flow Rate (L/min) 2 Oxygen Delivery Method Room Air Weight: 56.1 kg Body Mass Index (BMI) 19.9 Finger Stick Blood Glucose 124 Intake and Output for Last 24 Hours 06/24/17 06/25/17 06/26/17 23:59 23:59 23:59 Intake Total 2631 / 2631 1874.9 / 1874.9 1750.4 / 1750.4 Output Total 950 / 950 Balance 1681 / 1681 1874.9 / 1874.9 1750.4 / 1750.4 Microbiology Past 72 Hours 06/25/17 13:25 C. difficile DNA Amplification - Final Stool 06/19/17 09:37 Blood Culture - Final Blood Culture (Wb) - Right Hand No growth in 5 days. 06/19/17 11:05 Blood Culture - Final Blood Culture (Wb) - Left Forearm No growth in 5 days. Laboratory Tests Past 24 Hrs 06/26/17 06/26/17 05:40 05:40 WBC 13.1 H RBC 4.01 L Hgb 12.1 Hct 36.5 L MCV 91.0 MCH 30.2 MCHC 33.2 RDW 14.4 RDW Differential 47.6 H Plt Count 427 MPV 10.0 Immature Gran % (Auto) 1.900 H Neut % (Auto) 56.5 Lymph % (Auto) 24.9 [place] % (Auto) 14.5 H Eos % (Auto) 2.0 Baso % (Auto) 0.2 Absolute Neuts (auto) 7.4 Absolute Lymphs (auto) 3.27 Total Counted Not Reportable Differential Comment SCANNED Diff Path Review July Sodium 142 Potassium 3.8 Chloride 105 Carbon Dioxide 30.0 Anion Gap 7 BUN 11 Creatinine 0.72 Estim Creat Clear Calc 35.49 Est GFR (MDRD) Af Amer 99 Est GFR (MDRD) Non-Af 82 BUN/Creatinine Ratio 15.2 Glucose 37 L* Calcium 8.7 POC Glucose 06/26/17 06/26/17 06/26/17 11:16 06:54 05:41 POC Glucose 189 H 142 H 37 L* 06/25/17 06/25/17 21:42 16:43 POC Glucose 149 H 84 Medical Necessity - Tobacco Use Smoking Status: Former smoker Assessment/Plan Active and Suspected Problems (Last Updated 06/11/17 @ 17:02 by ELLIOT Moore) DKA (diabetic ketoacidoses) (Acute) Periorbital cellulitis of left eye (Acute) 1. Acute preseptal cellulitis - no deeper involvement per MRI. Opthalmo has nothing additional to offer. Little to no improvement. Pt has been accepted at [facility]. Transfer pending. Small increase in white count, no fever. Vanc and zosyn with plan to transition to Linezolid and Augmentin for 7 days per infectious disease recommendation as outpatient when ready. Cultures are negative to date. 2. DKA in type 1 diabetes-resolved, however she remains very fluctuant. ADRIEN Burch met with the patient, she is to continue her current insulin regimen as ordered and refrain from restarting the pump until her vision is better. F/u in office. 3. Acute on chronic systolic congestive heart failure from fluid overload-continue current lasix dose. Edema resolved. TAM ceja. 4. Paroxysmal atrial fibrillation-amiodarone, Coreg, and Eliquis 5. History of DVTs, bilateral-Eliquis 6. Hypertension-continue current meds DVT prophylaxis: Eliquis Discharge planning: transfer when bed available ([facility]) This patient was seen by Vitaliy Gaines PA-C under the supervision of Doctor Hans. <Ana Maxwell - Last Filed: 06/26/17 13:32> - Physical Exam Vital Signs Temp Pulse Resp BP Pulse Ox 98.2 F 76 14 144/74 H 96 06/26/17 10:15 06/26/17 11:46 06/26/17 10:15 06/26/17 10:15 06/26/17 10:15 Oxygen Flow Rate (L/min) 2 Oxygen Delivery Method Room Air Weight: 56.1 kg Body Mass Index (BMI) 19.9 Finger Stick Blood Glucose 124 Intake and Output for Last 24 Hours 06/24/17 06/25/17 06/26/17 23:59 23:59 23:59 Intake Total 2631 / 2631 1874.9 / 1874.9 1750.4 / 1750.4 Output Total 950 / 950 Balance 1681 / 1681 1874.9 / 1874.9 1750.4 / 1750.4 Microbiology Past 72 Hours 06/25/17 13:25 C. difficile DNA Amplification - Final Stool 06/19/17 09:37 Blood Culture - Final Blood Culture (Wb) - Right Hand No growth in 5 days. 06/19/17 11:05 Blood Culture - Final Blood Culture (Wb) - Left Forearm No growth in 5 days. Laboratory Tests Past 24 Hrs 06/26/17 06/26/17 05:40 05:40 WBC 13.1 H RBC 4.01 L Hgb 12.1 Hct 36.5 L MCV 91.0 MCH 30.2 MCHC 33.2 RDW 14.4 RDW Differential 47.6 H Plt Count 427 MPV 10.0 Immature Gran % (Auto) 1.900 H Neut % (Auto) 56.5 Lymph % (Auto) 24.9 [place] % (Auto) 14.5 H Eos % (Auto) 2.0 Baso % (Auto) 0.2 Absolute Neuts (auto) 7.4 Absolute Lymphs (auto) 3.27 Total Counted Not Reportable Differential Comment SCANNED Diff Path Review May foll Sodium 142 Potassium 3.8 Chloride 105 Carbon Dioxide 30.0 Anion Gap 7 BUN 11 Creatinine 0.72 Estim Creat Clear Calc 35.49 Est GFR (MDRD) Af Amer 99 Est GFR (MDRD) Non-Af 82 BUN/Creatinine Ratio 15.2 Glucose 37 L* Calcium 8.7 POC Glucose 06/26/17 06/26/17 06/26/17 11:16 06:54 05:41 POC Glucose 189 H 142 H 37 L* 06/25/17 06/25/17 21:42 16:43 POC Glucose 149 H 84 Assessment/Plan Patient seen and examined with Vitaliy Gaines. I agree with his interval history, physical exam and assessment and plan as documented above.Daughter is requesting transfer to a tertiary facility and will prefer [facility]. Otherwise, patient feels well. Will initiate transfer; patient has been accepted by Hospitalist, Dr. Rogers. Will be transferred when bed is available. Code Visit Inpatient E&M: 02826 Subs Hosp L3
[2017-06-26 16:25] LABS: Bedside Glucose 121 mg/dL (70-110)
[2017-06-26 20:21] LABS: Bedside Glucose 159 mg/dL (70-110)
--- NOTE | 2017-06-27 07:17 | DCINST_ITS ---
- Discharge Diagnoses Reason(s) for Visit for Discharge Instructions: DKA, left eye swelling You will use the following diet at home:: Calorie/Carbohydrate Controlled ( specify 1200, 1400, etc), Cardiac Your food should be the consistency of: Regular Your liquids should be the consistency of: Regular/Thin Discharge Activity: Return to Normal Activity Weight Bearing Status: Weight bearing as tolerated Allergies/Adverse Reactions: Allergies No Known Allergies Allergy (Verified 06/07/17 10:59) Medications to take at Discharge insulin lispro (U-100) 100 unit/mL subcutaneous solution See Label Instructions SC QDAY 03/17/17 Aspirin [Aspirin, Baby] 81 mg PO DAILY@0800 04/21/17 amiodarone 200 mg tablet 200 mg PO QDAY #90 tab 05/19/17 apixaban 2.5 mg tablet 2.5 mg PO BID #180 tab 05/19/17 carvedilol 12.5 mg tablet 6.25 mg PO BID #180 tab 05/27/17 Furosemide [Furosemide] 40 mg PO DAILY 06/17/17 Primary Care Physician: Ryan Sams MD [Primary Care Provider] - Proposed Discharge Date: 06/26/17
--- NOTE | 2017-06-27 08:34 | PCM.DC.SUM ---
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 Mild mucosal thickening in the paranasal sinuses and partial opacification of the mastoid air cells. Marked left periorbital and facial subcutaneous soft tissue swelling with enhancement. No evidence of intracranial or post-septal extension. 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 Moderate aortic knob calcification. RAD/Chest 1 View (Portable) IMPRESSION: Moderate CHF/fluid overload with interstitial edema. Superimposed pneumonia to be clinically excluded for which follow-up chest exam is recommended to demonstrate complete clearing. Mild right greater than left pleural effusions and atelectasis/scarring noted. RAD/Lumbar Spine 2 or 3 Views IMPRESSION: No fractures. 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 A mild lumbar scoliosis with convexity to the left RAD/Abd Inc Decub and/or Erect IMPRESSION: Small bowel distention with ileus or partial obstruction. Bilateral lower lung infiltrates or edema. CT/Brain/Head without Contrast IMPRESSION: Left periorbital cellulitis. No acute intracranial abnormality. If clinical suspicion persists for intracranial abnormality MRI can be obtained. RAD/Chest PA and Lateral IMPRESSION: Worsening infiltrates or edema and pleural effusions. Consults: Infectious Disease - Dr. Damico Opthalmology - Aidee Burch - endocrine Operations: None Procedures: None Summary of Care Provided: Physical exam on day of discharge: See daily progress note Hospital course: The patient is a 81 year old F with a hx of T1 DM, Paroxysmal AF, htn, HLD, systolic CHF, hx of DVTs, who presented to the ER with weakness for about 4 days, and found in the ER to have a blood glucose of 600. She was admitted for DKA to the ICU and placed on the DKA protocol. Her DKA improved, however she developed left preseptal cellulitis with a fever and lactic acidosis. Dr. Hoskins from opthalmology and Dr. Damico from ID were consulted. She was placed on vanc and zosyn as she had significant swelling, erythema, tenderness, and inability to open her eye with very slow improvement. Her fever resolved and her leukocytosis improved, however she continued to have minimal improvement in the swelling, and remained unable to open her eye. MRI did not reveal deeper infection or abscess. She also had some LE edema while here, and rales on exam with mild SOB, and had her lasix adjusted for suspected exacerbation of her underlying CHF, probably from the fluid administration with her DKA. Due to her slow improvement, the family desired transfer to a tertiary facility better equipped to evaluate her eye. Arrangements were made for her to be trasfer[facility]. She was transferred when a bed became available in stable condition. Her endocrine HUMAN MACHINE INTERFACE ENGINEER came to see her while here, and would like her to remain off the insulin pump and on long and short acting insulin until her eye has improved and she is able to read her pump. She should follow up with her after discharge from the Clinic. Her blood sugar was highly fluctuant while here. Please also follow up with your PCP and opthalmologist. This patient was seen by Vitaliy Gaines PA-C under the supervision of Doctor Maxwell. [] Discharge Diet: Low fat/ Low Cholesterol, 1800 Calorie Control Diet, 2000 mg Sodium Diet Discharge Activity: Return to Normal Activity Weight Bearing Status: Weight bearing as tolerated Home Medications: Medications to take at Discharge insulin lispro (U-100) 100 unit/mL subcutaneous solution See Label Instructions SC QDAY 03/17/17 Aspirin [Aspirin, Baby] 81 mg PO DAILY@0800 04/21/17 amiodarone 200 mg tablet 200 mg PO QDAY #90 tab 05/19/17 apixaban 2.5 mg tablet 2.5 mg PO BID #180 tab 05/19/17 carvedilol 12.5 mg tablet 6.25 mg PO BID #180 tab 05/27/17 Furosemide [Furosemide] 40 mg PO DAILY 06/17/17 Primary Care Physician: Ryan Sams MD [Primary Care Provider] - Please Follow Up With: Opthalmology When: as directed Please Follow Up With: Muriel Burch HUMAN MACHINE INTERFACE ENGINEER-C When: as directed Disposition: Acute care Hospital Minutes spent on discharge:: 40 Patient Condition:: Stable Medical Necessity - Tobacco Use Smoking Status: Former smoker Meaningful Use Info Meaningful Use Diagnoses (Choose all that apply): CHF - CHF MAGDA/ARB ordered at discharge?: No Reason MAGDA/ARB not ordered?: Worsening renal disease Documented LVEF (%): 50 <Ana Maxwell - Last Filed: 06/27/17 09:19> Discharge Date and Diagnosis - Secondary Discharge Diagnosis Chronic Problems (Last Updated 06/11/17 @ 17:02 by ELLIOT Moore) 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
--- NOTE | 2017-06-27 08:45 | DS.PCM_ITS ---
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 Mild mucosal thickening in the paranasal sinuses and partial opacification of the mastoid air cells. Marked left periorbital and facial subcutaneous soft tissue swelling with enhancement. No evidence of intracranial or post-septal extension. 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 Moderate aortic knob calcification. RAD/Chest 1 View (Portable) IMPRESSION: Moderate CHF/fluid overload with interstitial edema. Superimposed pneumonia to be clinically excluded for which follow-up chest exam is recommended to demonstrate complete clearing. Mild right greater than left pleural effusions and atelectasis/scarring noted. RAD/Lumbar Spine 2 or 3 Views IMPRESSION: No fractures. 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 A mild lumbar scoliosis with convexity to the left RAD/Abd Inc Decub and/or Erect IMPRESSION: Small bowel distention with ileus or partial obstruction. Bilateral lower lung infiltrates or edema. CT/Brain/Head without Contrast IMPRESSION: Left periorbital cellulitis. No acute intracranial abnormality. If clinical suspicion persists for intracranial abnormality MRI can be obtained. RAD/Chest PA and Lateral IMPRESSION: Worsening infiltrates or edema and pleural effusions. Consults: Infectious Disease - Dr. Damico Opthalmology - Aidee Burch - endocrine Operations: None Procedures: None Summary of Care Provided: Physical exam on day of discharge: See daily progress note Hospital course: The patient is a 81 year old F with a hx of T1 DM, Paroxysmal AF, htn, HLD, systolic CHF, hx of DVTs, who presented to the ER with weakness for about 4 days , and found in the ER to have a blood glucose of 600. She was admitted for DKA to the ICU and placed on the DKA protocol. Her DKA improved, however she developed left preseptal cellulitis with a fever and lactic acidosis. Dr. Hoskins from opthalmology and Dr. Damico from ID were consulted. She was placed on vanc and zosyn as she had significant swelling, erythema, tenderness, and inability to open her eye with very slow improvement. Her fever resolved and her leukocytosis improved, however she continued to have minimal improvement in the swelling, and remained unable to open her eye. MRI did not reveal deeper infection or abscess. She also had some LE edema while here, and rales on exam with mild SOB, and had her lasix adjusted for suspected exacerbation of her underlying CHF, probably from the fluid administration with her DKA. Due to her slow improvement, the family desired transfer to a tertiary facility better equipped to evaluate her eye. Arrangements were made for her to be trasferred to the [facility]. She was transferred when a bed became available in stable condition. Her endocrine INTEGRATION TECHNICIAN came to see her while here, and would like her to remain off the insulin pump and on long and short acting insulin until her eye has improved and she is able to read her pump. She should follow up with her after discharge from the Clinic. Her blood sugar was highly fluctuant while here. Please also follow up with your PCP and opthalmologist. This patient was seen by Vitaliy Gaines PA-C under the supervision of Doctor Maxwell. [] Discharge Diet: Low fat/ Low Cholesterol, 1800 Calorie Control Diet, 2000 mg Sodium Diet Discharge Activity: Return to Normal Activity Weight Bearing Status: Weight bearing as tolerated Home Medications: Medications to take at Discharge insulin lispro (U-100) 100 unit/mL subcutaneous solution See Label Instructions SC QDAY 03/17/17 Aspirin [Aspirin, Baby] 81 mg PO DAILY@0800 04/21/17 amiodarone 200 mg tablet 200 mg PO QDAY #90 tab 05/19/17 apixaban 2.5 mg tablet 2.5 mg PO BID #180 tab 05/19/17 carvedilol 12.5 mg tablet 6.25 mg PO BID #180 tab 05/27/17 Furosemide [Furosemide] 40 mg PO DAILY 06/17/17 Primary Care Physician: Ryan Sams MD [Primary Care Provider] - Please Follow Up With: Opthalmology When: as directed Please Follow Up With: Muriel Burhc NP-C When: as directed Disposition: Acute care Hospital Minutes spent on discharge:: 40 Patient Condition:: Stable Medical Necessity - Tobacco Use Smoking Status: Former smoker Meaningful Use Info Meaningful Use Diagnoses (Choose all that apply): CHF - CHF MAGDA/ARB ordered at discharge?: No Reason MAGDA/ARB not ordered?: Worsening renal disease Documented LVEF (%): 50 <Ana Maxwell - Last Filed: 06/27/17 09:19> Discharge Date and Diagnosis - Secondary Discharge Diagnosis Chronic Problems (Last Updated 06/11/17 @ 17:02 by ELLIOT Moore) retirement current use of amiodarone (Chronic) Paroxysmal atrial fibrillation (Chronic) Valvular heart disease (Chronic) Right-sided heart failure (Chronic) Hyperlipidemia due to type 1 diabetes mellitus (Chronic) Uncontrolled type 1 diabetes mellitus with complication, without long-term current use of insulin (Chronic) Hospital Course and Treatment Summary of Care Provided: The patient is a 81 year old F [] Code Visit Inpatient E&M: 09737 Disch Hosp - >30 mins spent
--- NOTE | 2017-06-28 09:29 | CASEMGMT ---
Call to [facility] to notify them that pt was transferred to [facility] on Monday 06/26, voices understanding. Per Sadie, they were still waiting on Dr. Sams's office to call back to be able to write for orders. Maldonado HARRELL CM
[2017-06-28 14:32] LABS: Pathologist Review Reviewed
[2017-06-28 14:38] LABS: Pathologist Review Reviewed
[2017-06-29 09:25] LABS: Bedside Glucose 45 mg/dL (70-110)
[2017-06-29 09:25] LABS: Bedside Glucose 80 mg/dL (70-110)
== END 2017-06-26 20:20 | disposition short-term general hospital (02) | DRG 637 ==
LOC: ED 09:06 → ICU 10:13 → PCU 06-21 07:13 → ICU 06-21 08:07
PROVIDERS: Internal Medicine; Internal Medicine Infectious Disease; Physician Assistant; Admitting Provider Internal Medicine; Emergency Provider Emergency Medicine; Family Provider Family Medicine; PCP Family Medicine; Visit Provider Internal Medicine
DX: E10.10 Type 1 diabetes mellitus with ketoacidosis without coma (principal); I50.23 Acute on chronic systolic (congestive) heart failure; A41.9 Sepsis, unspecified organism; L03.213 Periorbital cellulitis; N17.9 Acute kidney failure, unspecified; I48.0 Paroxysmal atrial fibrillation; I11.0 Hypertensive heart disease with heart failure; E86.0 Dehydration; R53.81 Other malaise; Z86.718 Personal history of other venous thrombosis and embolism; E78.5 Hyperlipidemia, unspecified; E10.69 Type 1 diabetes mellitus with other specified complication; Z79.4 Long term (current) use of insulin; Z96.41 Presence of insulin pump (external) (internal); Z87.891 Personal history of nicotine dependence
CPT/HCPCS: 36415; 36600; 70450; 70543; 71045; 71046; 72100; 74019; 80048; 80053; 80076; 80202; 81001; 82009; 82550; 82803; 82947; 82962; 83036; 83605; 83735; 84484; 85025; 85610; 85730; 86140; 87040; 87086; 87449; 87493; 87641; 92507; 92526; 93005; 97110; 97116; 97162; 97166; 97530; 97802; 99285; A9585; J7030; J7040; J7050; A4216; J1940; J2405; J7799

== ENCOUNTER 2017-07-29 09:25 | Emergency (ER) | payer MEDICARE, SELFPAY ==
[2017-07-29 09:26] VITALS: BP 163/74; PULSE 63; RESP 14; TEMP 36.8; O2SAT 95; BMI 21.3
--- NOTE | 2017-07-29 09:39 | RAD_ITS ---
STUDY: X-RAY - RIGHT WRIST REASON FOR EXAM: Female, 81 years old. Pain following a fall. TECHNIQUE: 3 view(s) of the wrist were obtained. COMPARISON: None. FINDINGS: Nondisplaced transverse fracture of the distal radial metaphysis. Nondisplaced avulsion fracture of the ulnar styloid. Normal radiocarpal articulation. Normal distal radioulnar articulation. Normal carpal bones. Normal carpal articulations. Normal carpometacarpal articulation of the thumb. Normal second through fifth carpometacarpal articulations. Normal visualized metacarpal bones. Soft tissue swelling. Calcification of the triangular fibrocartilage. RAD/Wrist min 3 Views IMPRESSION: Nondisplaced transverse fracture of the distal radial metaphysis and nondisplaced avulsion fracture of the ulnar styloid. Calcification of the triangular fibrocartilage. Electronically Signed: Isra Claros MD at 10:56 EDT Tel [phone], Service support ,
--- NOTE | 2017-07-29 10:46 | ED.VISSUMM ---
- ER Visit Summary Date of Service: 07/29/17 Chief Complaint: [] Right wrist injury yesterday History of Present Illness: The patient is a 81 F [] stumbled and fell suffered right wrist injury yesterday presents for evaluation today no other complaints of head neck chest or abdominal pain no premonitory symptoms. Physical Examination: [] Encompassing the bed she has obvious contusion to the right wrist region. She is able to dorsi and plantarflex the wrist hand function and finger function is normal strong radial pulse cap refill seem symmetric to all fingers as the sensation the hand itself is not tender she has no complaints of head neck chest or abdominal pain no other areas of injury she assures me and the rest of her physical exam is really unremarkable She declined medications for pain, x-rays is obtained Test Results: [] Emergency Department Course and Treatment: [] X-ray shows nondisplaced fracture distal radius and ulnar styloid discussed with the patient she is placed in AP splints, she declined the AP splints, she preferred the Velcro splint I explained to her she must wear that splint until she seen by orthopedics, and not take it off she agreed she is referred to Dr. Mook Cordova medical numerical control operator for orthopedics and she will return for change in symptoms and understands need to follow-up wear the splint until seen Treatment Plan: [] Prefabricated Velcro wrist splint applied Disposition: [] Stable Impression: [] Fracture distal radius ulna as above right This note was generated with Zank dictation software. It may contain incorrect words, spelling, and punctuation that were not noted in review of the chart prior to signing ED Disposition - Plan for ED Patient: Chief Complaint: Upper Extremity Injury Instructions: ED Fx Forearm Radius Ulna Redu Requ Prescriptions: Hydrocodone/Acetaminophen [[place] 5-325 Tablet] 1 - 2 ea PO 4X/DAY PRN PRN 3 Days #12 tab PRN Reason: Pain Referrals: Mook Cordova DO [STAFF PHYSICIAN] - Carlos Ngo DO [Primary Care Provider] -
--- NOTE | 2017-07-29 11:08 | ED.DEP ---
ED Disposition - Plan for ED Patient: Chief Complaint: Upper Extremity Injury Instructions: ED Fx Forearm Radius Ulna Redu Requ Prescriptions: Hydrocodone/Acetaminophen [[place] 5-325 Tablet] 1 - 2 ea PO 4X/DAY PRN PRN 3 Days #12 tab PRN Reason: Pain Referrals: Carlos Ngo DO [Primary Care Provider] - Mook Cordova DO [STAFF PHYSICIAN] -
--- NOTE | 2017-07-29 11:11 | DCINST.ED_ITS ---
ED Disposition - Plan for ED Patient: Chief Complaint: Upper Extremity Injury Instructions: ED Fx Forearm Radius Ulna Redu Requ Prescriptions: Hydrocodone/Acetaminophen [[place] 5-325 Tablet] 1 - 2 ea PO 4X/DAY PRN PRN 3 Days #12 tab PRN Reason: Pain Referrals: Carlos Ngo DO [Primary Care Provider] - Mook Cordova DO [STAFF PHYSICIAN] -
== END 2017-07-29 11:50 | disposition home or self-care (01) ==
PROVIDERS: Emergency Provider Emergency Medicine; Family Provider Pediatrics; PCP Pediatrics
DX: S52.591A Other fractures of lower end of right radius, initial encounter for closed fracture (principal); S52.614A Nondisplaced fracture of right ulna styloid process, initial encounter for closed fracture; W01.0XXA Fall on same level from slipping, tripping and stumbling without subsequent striking against object, initial encounter; Y93.9 Activity, unspecified; Y92.9 Unspecified place or not applicable
CPT/HCPCS: 73110; 99282; J7030

== ENCOUNTER 2017-09-25 10:50 | Inpatient (IN) | payer MEDICARE, SELFPAY ==
[2017-09-25] VITALS (9 sets, daily range): BP systolic 128–180; BP diastolic 59–77; PULSE 59–67; RESP 13–18; TEMP 36.5–37; O2SAT 85–100; BMI 20.3; BMI 20.4
--- NOTE | 2017-09-25 11:50 | EKG12_ITS ---
Test Reason : GEN ILLNESS Blood Pressure : / mmHG Vent. Rate : 059 BPM Atrial Rate : 059 BPM P-R Int : 258 ms QRS Dur : 086 ms QT Int : 450 ms P-R-T Axes : 088 028 043 degrees QTc Int : 445 ms Sinus bradycardia with 1st degree A-V block Nonspecific ST abnormality Abnormal ECG Confirmed by EDWIN AGUILERA, BERTHA ([id number]), tape editor PAMELA HAYES ([id number]) on 09/27/2017 3:13:10 PM Referred By: ASHLEY Confirmed By:BERTHA PINEDA MD
--- NOTE | 2017-09-25 11:51 | CT_ITS ---
STUDY: CT BRAIN WITHOUT CONTRAST REASON FOR EXAM: Female, 82 years old. Dizziness. Left orbital cellulitis. History of diabetes and hypertension. Patient on blood thinner. RADIATION DOSAGE (If Supplied By Facility): CTDIvol = ( 44.99 ) mGy, DLP = ( 863.60 ) mGycm TECHNIQUE: Transaxial CT imaging of the brain was performed without administration of intravenous contrast material. Individualized dose optimization techniques were used for this CT. COMPARISON: June 19, 2017. FINDINGS: There is minimal thickening of the left preseptal soft tissues on compared to the right. This is markedly decreased when compared to prior study. The soft tissues are otherwise unremarkable. Normal calvarium. There is mild cerebral atrophy with widening of the extra-axial spaces and ventricular dilatation. There are areas of decreased attenuation within the white matter tracts of the supratentorial brain, consistent with microvascular disease changes. There are small punctate calcifications of the basal ganglia which are seen in the aging brain as a normal variant. There is a focal calcification in the left jeovanny unchanged from prior study. Normal cerebellum. There is no intracranial hemorrhage. There are no findings of an acute ischemic infarction. Normal visualized paranasal sinuses. CT/Brain/Head without Contrast IMPRESSION: 1. No acute intracranial or calvarial abnormality or major interval change. 2. Decreasing left preseptal cellulitis with compared to prior exam. There is no evidence of orbital involvement. Electronically Signed: Alejandro Hall DO at 12:54 EDT Tel [phone], Service support ,
[2017-09-25 12:21] LABS: Absolute Lymphocyte Count 1.24 X10^3/ul (0.83-4.51); Absolute Neutrophil Count 4.8 X10^3/uL (2.0-7.7); Basophil# 0.02 X10^3/uL; Basophil% 0.3 % (0-1); Eosinophil# 0.24 X10^3/uL; Eosinophils% 3.5 % (0-5); Hematocrit 30.1 % (37-47); Hemoglobin 9.6 g/dl (12.0-15.0); Lymphocyte # 1.24 X10^3/ul (4.0); Mean Corp Hgb Conc 31.9 g/gl (32-36); Mean Corpuscular Hgb 28.3 pg (27.0-32.0); Mean Corpuscular Volume 88.8 fL (81-99); Mean Platelet Vol. 9.9 fl (6.2-12.0); Monocyte# 0.62 X10^3/uL; Neutrophil # 4.77 X10^3/uL (2.7-7.7); Neutrophil % 69.1 % (47-70); Platelet Count 347 K/mm3 (150-450); RBC Distribution Width CV 15.4 % (11.6-14.6); RBC Distribution Width SD 49.6 fl (35.1-43.9); Red Blood Count 3.39 M/mm3 (4.2-5.4); White Blood Count 6.9 K/mm3 (4.4-11.0)
[2017-09-25 12:22] LABS: POSITIVE COUNT NO; POSITIVE DIFFERENTIAL NO; POSITIVE MORPHOLOGY NO
--- NOTE | 2017-09-25 12:22 | ED.DCSUM_ITS ---
- ER Visit Summary Date of Service: 09/25/17 Chief Complaint: [Multiple complaints] History of Present Illness: The patient is a 82 F [swelling around her left eye. That is been going on for the past 4-5 days. It is not painful and she has had no changes in vision. She had no injury. She has a history of orbital cellulitis but at that time he was exquisitely painful and erythematous which he does not this time. That is her concern however. Additionally she has had increasing swelling of the lower extremities that is extending up to her abdomen. She is on a diuretic. Her daughter is concerned about her oxygen levels is unclear exactly why. Patient denies any shortness of breath. She does have a history of atrial fibrillation and is on Eliquis. She has not had cough or fever. Additionally she was seen at urgent care a week ago and was diagnosed with urinary tract infection took 1 dose of Keflex and felt better and since then stop the medication. Additionally she is complaining of pain in her tailbone. There has been no injury. She is very sore. She is a type I diabetic. History is limited by the patient's memory problems. Her daughter states that ever since she was diagnosed with atrial fibrillation back in December of last year she has been dizzy and off balance.] Physical Examination: [] WN WD NAD PERRL EOMI mild swelling and dark discoloration of the upper lid and periorbital region MMM NECK supple and nontender, no masses RRR no murmur rub or gallop, patient has symmetric lower extremity edema that extends up to the thighs and lower abdomen, symmetric radial pulses CTAB no respiratory distress ABDOMEN is soft and nontender, normal bowel sounds, no distension, no rebound or guarding Patient has a small amount of ecchymosis and tenderness at the gluteal crest SKIN is warm and dry no rashes Alert and Oriented x3, CN II-XII in tact, no motor or sensory deficits, gait normal No lymphadenopathy Test Results: [] Emergency Department Course and Treatment: [Broad workup was pursued. Patient' s clinical exam is not consistent with orbital cellulitis. She was however found to be hypoxic with minimal exertion and increasing right pleural effusion. For this reason she will be admitted for thoracentesis.] Treatment Plan: [] Disposition: [Admit] Impression: [1. Right pleural effusion 2. Hypoxia This note was generated with Dragon dictation software. It may contain incorrect words, spelling, and punctuation that were not noted in review of the chart prior to signing ED Disposition - Plan for ED Patient: Disposition: Acute Care Hospital [facility] Chief Complaint: General Illness
[2017-09-25 12:29] LABS: International Normalized Ratio 1.3; Prothrombin Time (Protime)PT. 16.5 SECONDS (11.7-14.9)
--- NOTE | 2017-09-25 12:35 | RAD_ITS ---
STUDY: X-RAY CHEST REASON FOR EXAM: Female, 82 years old. Cough. TECHNIQUE: PA and lateral views of the chest. COMPARISON: June 19, 2017. FINDINGS: Telemetry wires overlie the chest. There is increasing right pleural effusion and atelectatic changes at the right lung base when compared to prior study. There is persistent but decreased perihilar interstitial prominence. The heart appears mildly enlarged. Normal mediastinum and jarrell. There is central vascular prominence, decreased from the prior study. There is atherosclerotic calcification of the aortic arch with tortuosity. There is demineralization of the osseous structures. Normal visualized ribs, clavicles, and shoulders. There is no demonstrated abnormality of the visualized soft tissue structures of the upper abdomen. RAD/Chest PA and Lateral IMPRESSION: 1. Enlarging right pleural effusion and atelectasis when compared to prior study. 2. Decreasing vascular congestion. Electronically Signed: Alejandro Hall DO at 13:00 EDT Tel [phone], Service support ,
[2017-09-25 12:44] LABS: Anion Gap 9 (5-15); BUN 26 mg/dL (7-18); BUN/Creat Ratio 21.7 RATIO (10-20); Calcium,Total 8.4 mg/dL (8.5-10.1); Chloride 96 mmol/L (98-107); EST Glomerular Filtration Rate 46 mL/min (>60); Est Glom Filt Rate - Afr Amer 55 mL/min (>60); Estimated Creatinine Clearance 30.28 ml/min; Glucose 299 mg/dL (74-106); Potassium 4.2 mmol/L (3.5-5.1); Sodium Level 134 mmol/L (136-145)
[2017-09-25 12:49] LABS: BNP,B-Type NATRIURETIC PEPTIDE 213.9 pg/mL (0-100)
[2017-09-25 13:50] LABS: Color, Urine Yellow (Yellow); Glucose, Dipstick 250 mg/dl (Normal); Ketone-Dipstick Negative (Negative); Leukocyte Esterase-Dipstick Negative /ul (Negative); Mucous, Urine 0 SEEN /hpf (<or=2+); Nitrite-Dipstick Negative (Negative); Occult Blood-Urine Negative /ul (Negative); Protein-Dipstick Negative (Negative); Red Blood Cells-Urine 0 SEEN /hpf (0-5); Squamous Epithelial Cells - UA 0 SEEN /hpf (5-10); Urine Bilirubin Dipstick Negative (Negative); Urine Clarity Clear (Clear); Urine Urobilinogen Normal (Normal); Urine pH 6.5 (5.0 - 8.0)
[2017-09-25 13:57] LABS: Bacteria 1+ /hpf (None Seen); White Blood Cells 0-5 SEEN /hpf (0-5)
--- NOTE | 2017-09-25 16:22 | HP.PCM_ITS ---
History of Present Illness Date of Admission: 09/25/17 Chief Complaint: left eye swelling The patient is a 82 year old F with past medical history of paroxysmal atrial fibrillation, history of DVT, right-sided heart failure, type 1 diabetes mellitus, secondary pulmonary arterial hypertension, hyperlipidemia mitral valve insufficiency. Patient was admitted via the ED on 09/25/2017 with complaint of left-sided periorbital swelling. Patient was admitted and [facility] for orbital cellulitis for which she was transferred to [facility] and according to where he was found out that it was due to a fungal infection. As such when she noted that her eye was getting edematous again she became concerned and her daughter brought her to the ED. the ED, she also complained of increased swelling of the lower extremities extending to her abdomen. She had been concerned about her diuretic. She denied any shortness of breath, or cough, chest pain, diarrhea vomiting. She has not had any fever either. Was walking to the bathroom she was noted to desaturate to 85%. Chest x-ray done showed a right-sided pleural effusion. Patient is also on Eliquis for A. fib. On admission in the ED, vitals were significant for temperature of 97.7, blood pressure of 128/59, respiratory rate of 16, pulse rate of 62, and saturating at 89% on 2 L of oxygen. SHe is therefore being admitted to be worked up for right -sided pleural effusion. 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 Appetite is fairly good. She reports no issues. Swelling inlegs sl improved. She has resumed her gardening and painting. Sleep is good. Denies any issues. Today her insulin pump is downlaoded. No extreme Bg readings. Bg 140-200 range overall. Medical History: Medical History (Last Reviewed 09/08/17 @ 16:11 by Camille Escalante) Secondary pulmonary arterial hypertension (Chronic) I27.21 Nonrheumatic mitral (valve) insufficiency (Chronic) I34.0 Paroxysmal atrial fibrillation (Chronic) I48.0 DVT (deep venous thrombosis) (Chronic) I82.409 Right-sided heart failure (Chronic) I50.810 Hyperlipidemia due to type 1 diabetes mellitus (Chronic) E10.69, E78.5 Uncontrolled type 1 diabetes mellitus with complication, without long-term current use of insulin (Chronic) E10.8, E10.65 Doing fairly well. Appetite is fairly good. She reports no issues. Swelling inlegs sl improved. She has resumed her gardening and painting. Sleep is good. Denies any issues. Today her insulin pump is downlaoded. No extreme Bg readings. Bg 140-200 range overall. Atrial fibrillation I48.91 Bone spur M77.9 Diabetes type 1, controlled E10.9 dx : 1979' last exacerbation : dka : years ago hypoglycemic episode : years ago er visit :years ago Heart murmur R01.1 Asthma J45.909 Cataracts, bilateral H26.9 Hypertension I10 A. fib with RVR, new onset (Inactive) New onset a-fib (Inactive) I48.91 Allergies No Known Allergies Allergy (Verified 09/25/17 10:55) Home Medications: Ambulatory Orders Medication Instructions Recorded apixaban 2.5 mg tablet 2.5 mg PO BID 07/22/17 Amiodarone HCl [Amiodarone HCl] 400 mg PO DAILY 07/29/17 carvedilol 3.125 mg tablet 3.125 mg PO BID #180 tab 08/02/17 furosemide 40 mg tablet 20 mg PO BID 09/06/17 levothyroxine 50 mcg tablet 50 mcg PO QDAY #90 tab 09/06/17 aspirin 81 mg chewable tablet 81 mg PO QDAY 09/08/17 Insulin Lispro [Humalog] See Protocol SC CONT 09/25/17 Surgical History: no surgical history Psychiatric History: No pertinent psych hx Lives: Alone Smoking Status: Never smoker - *Family History Sibling Family History: Family History (Last Reviewed 09/08/17 @ 16:11 by Camille Escalante) Father Kidney disease Cancer History Items: Heart Disease - Had some cardiac surgery. Review of Systems Constitutional: Denies: Chills, Fever, Weight Change HEENT: Denies: Head Aches, Sinus Congestion, Sinus Drainage Cardiovascular: Reports: Edema - bilateral pitting 2+ pedal edema. Denies: Chest Pain, Claudication, Chest Pressure, Chest Tightness, Palpitations Respiratory: Reports: Shortness of breath upon exertion - noted in ED. Denies: Cough, Shortness of breath at rest, Sputum production Gastrointestinal: Denies: Abdominal Pain, Nausea, Vomiting Genitourinary: Denies: Dysuria Musculoskeletal: Denies: Joint Pain, Joint Tenderness Skin: Reports: - - left periorbital edema. Denies: Rash, Wounds Neurological: Denies: Numbness, Tingling, Focal weakness Psychiatric: Denies: Anxiety, Depression, Homicidal Ideations, Suicidal Ideations Hematologic/ Lymphatic: Denies: Easy Bruising, Easy Bleeding VTE Information - Inpt Only VTE Present on Admission: No VTE Mechan Device Prophylaxis: SCD's VTE Pharm Prophylaxis ordered?: No Reason prophylaxis not ordered:: Medical Contraindication - has pleural effusion ; may be hemothorax. Needs thoracocentesis - Physical Exam General: Alert, Oriented x3, Cooperative, No apparent distress HEENT: Atraumatic, PERRLA, EOMI, Normocephalic Oral: Moist Mucosa Neck: Supple, No JVD, Negative Carotid Bruits Lungs: - - decreased breath sounds in right mid and lower lung bernard. vocal and tactile fremitus decreased. Cardiovascular: No murmurs, Irregular Rate - irregular rhythm Abdomen: Bowel Sounds Present, Soft, Non Tender, Non-Distended, No Hepato- splenomegaly Extremities: - - (2+biltaral Skin: No rashes, No breakdown Musculoskeletal: No Tenderness to Palpation of Joints or Extremities Lymphatic: No Cervical, Supraclavicular, or Inguinal Adenopathy Neurological: Cranial nerves II-XII grossly intact Vital Signs Temp Pulse Resp BP Pulse Ox 97.7 F L 61 14 172/69 H 100 09/25/17 10:51 09/25/17 15:04 09/25/17 15:04 09/25/17 15:04 09/25/17 15:04 Assessment/Plan All Active Problems (Last Reviewed 09/08/17 @ 16:11 by Camille Escalante) DKA (diabetic ketoacidoses) (Resolved) Periorbital cellulitis of left eye (Resolved) 82 y/o female presenting with a complaint of left eye periorbital swelling and found to have hypoxia with ambulation. CXR showed right sided pleural effusion. 1. Right Pleural effusion * denied being SOB, but desaturated to 81% with ambulation. * stopped smoking ~ 50 years ago; only family history of cancer is pancreatic cancer in father * denies any weight loss * will admit to PCU with telemetry * CXR : increasing right pleural effusion and atelectatic changes in right lung base compared to previous study.Decreasing vascular congestion * patient on eliquis for Afib, so there is a concern for hemothorax * will hold eliquis and aspirin * Hb is 9.2; INR is 1.3, platelets-347 * oxygen by nasal canula to titrate saturation to >92% * pulmonology consult for thoracocentesis. * 2. Acute hypoxic respiratory failure due to pleural effusion * saturation dropped to 80s with ambulation on room air * CXR as described above * currently saturating at 100% on 2L of oxygen * will continue oxygen by nasal canula, to maintain saturation >92% * pulmo consulted * 3. RIght periorbital swelling * had orbital cellulitis in June, and it was found to be fungal after transfer to [facility] * has no eye pain, redness or tenderness * able to move eye fully * I strongly doubt this is due to orbital or preorbital cellulitis * CT head done showed decreasing preseptal cellulitis compared with previous exam, and no evidence of orbital involvement * will defer antibiotics for now and monitor * 4. Hypothyroidism * poorly controlled. TSH is 12.2 * claims compliance with synthroid, and takes it first thing in the morning, 1 hour before meals she should take it. * On Synthroid 50 mcg daily. Will increase dose to 75 mcg daily. * considering her age, target TSH will be up to 8. * 5. HFpEF * EF * BNP was 213.9; she is not obese; therefore BNP is not indicative of borderline BNP * has bilateral 2+ pitting pedal edema. I doubt this is related to heart failure and may more be related to a poorly controlled hypothyroidism. * ON lasix 20mg bid and Coreg. Will continue. * 6. Type 1 diabetes mellitus: Accu-Cheks before meals at bedtime. On ISS at home. Insulin sliding scale. 7. Paroxysmal Afib: Rate controlled. Will hold Eliquis on account of pleural effusion and need for thoracocentesis.On amiodarone and coreg 8. Hyperlipidemia: Statin. 9. History of DVT: Stable.Eliquis on hold o/a of need for thoracocentesis DVT prophylaxis: SCDs Same Code Visit Inpatient E&M: 92913 Init Hosp L3
[2017-09-25] MEDS: Furosemide 20 MG Tablet PO (18:10)
[2017-09-25 18:21] LABS: Bedside Glucose 194 mg/dL (70-110)
[2017-09-25] MEDS: Carvedilol 3.125 MG TABLET PO (22:08)
--- NOTE | 2017-09-25 22:10 | NURSING ---
Patient has insulin pump, adjusting insulin dosage using her pump.
[2017-09-25] MEDS: 0.9% NaCl Peripheral Flush Adult/Peds IV (22:13)
[2017-09-25 22:21] LABS: Bedside Glucose 303 mg/dL (70-110)
[2017-09-26] VITALS (10 sets, daily range): BP systolic 109–148; BP diastolic 55–74; PULSE 61–68; RESP 16; TEMP 37–38; O2SAT 96–97
[2017-09-26] MEDS: Levothyroxine 50 MCG Tablet PO (05:29)
[2017-09-26] MEDS: Levothyroxine 25 MCG TABLET 12.5 MCG PO (05:29)
[2017-09-26 06:44] LABS: Absolute Lymphocyte Count 1.27 X10^3/ul (0.83-4.51); Absolute Neutrophil Count 5.3 X10^3/uL (2.0-7.7); Basophil# 0.02 X10^3/uL; Basophil% 0.3 % (0-1); Eosinophil# 0.38 X10^3/uL; Eosinophils% 4.8 % (0-5); Hematocrit 30.2 % (37-47); Hemoglobin 9.6 g/dl (12.0-15.0); Lymphocyte # 1.27 X10^3/ul (4.0); Lymphocyte % 15.9 % (19-41); Mean Corp Hgb Conc 31.8 g/gl (32-36); Mean Corpuscular Hgb 28.2 pg (27.0-32.0); Mean Corpuscular Volume 88.6 fL (81-99); Mean Platelet Vol. 9.7 fl (6.2-12.0); Monocyte# 1.05 X10^3/uL; Monocyte% 13.1 % (0-10); Neutrophil # 5.26 X10^3/uL (2.7-7.7); Neutrophil % 65.8 % (47-70); Platelet Count 337 K/mm3 (150-450); RBC Distribution Width CV 15.3 % (11.6-14.6); RBC Distribution Width SD 48.9 fl (35.1-43.9); Red Blood Count 3.41 M/mm3 (4.2-5.4)
[2017-09-26 06:51] LABS: Bedside Glucose 234 mg/dL (70-110)
[2017-09-26 07:04] LABS: POSITIVE COUNT NO; POSITIVE DIFFERENTIAL NO; POSITIVE MORPHOLOGY NO; Scan Indicated on CBC? Y/N NO
[2017-09-26 07:05] LABS: Anion Gap 7 (5-15); BUN 25 mg/dL (7-18); BUN/Creat Ratio 27.2 RATIO (10-20); Calcium,Total 8.3 mg/dL (8.5-10.1); Chloride 100 mmol/L (98-107); Creatinine, Serum 0.92 mg/dL (0.55-1.02); EST Glomerular Filtration Rate 62 mL/min (>60); Est Glom Filt Rate - Afr Amer 76 mL/min (>60); Estimated Creatinine Clearance 39.44 ml/min; Glucose 216 mg/dL (74-106); Potassium 4.4 mmol/L (3.5-5.1); Sodium Level 137 mmol/L (136-145)
--- NOTE | 2017-09-26 08:47 | PCM.CONS.GEN ---
Reason for Consult Date of Consultation: 09/26/17 Reason for Consultation: Right pleural effusion History of Present Illness: The patient is a 82-year-old female, with a history as outlined below, who presented to the emergency department on September 25 with complaints of periorbital edema. The patient has a history of atrial fibrillation, DVT, heart failure and valvular heart disease along with mild pulmonary hypertension. She does have a history previously of small bilateral pleural effusions. She notes a smoking history of 0.5 packs per day ?15 years, having quit completely 40+ years ago. She does not have a baseline supplemental oxygen requirement. On presentation to the emergency department, the patient was noted to be afebrile hemodynamically stable. She was initially maintaining oxygen saturations in the 80s on room air. Laboratory evaluation revealed no evidence of a leukocytosis. Chemistry profile revealed an elevated creatinine to 1.20. Troponin was negative and BNP was mildly elevated to 213. TSH was increased to 12.2. Plain film chest x-ray revealed a moderate-sized right-sided pleural effusion. The patient was subsequently admitted to the progressive care unit for ongoing management. 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 Appetite is fairly good. She reports no issues. Swelling inlegs sl improved. She has resumed her gardening and painting. Sleep is good. Denies any issues. Today her insulin pump is downlaoded. No extreme Bg readings. Bg 140-200 range overall. Medical History: Medical History (Last Reviewed 09/08/17 @ 16:11 by Camille Escalante) Secondary pulmonary arterial hypertension (Chronic) I27.21 Nonrheumatic mitral (valve) insufficiency (Chronic) I34.0 Paroxysmal atrial fibrillation (Chronic) I48.0 DVT (deep venous thrombosis) (Chronic) I82.409 Right-sided heart failure (Chronic) I50.810 Hyperlipidemia due to type 1 diabetes mellitus (Chronic) E10.69, E78.5 Uncontrolled type 1 diabetes mellitus with complication, without long-term current use of insulin (Chronic) E10.8, E10.65 Doing fairly well. Appetite is fairly good. She reports no issues. Swelling inlegs sl improved. She has resumed her gardening and painting. Sleep is good. Denies any issues. Today her insulin pump is downlaoded. No extreme Bg readings. Bg 140-200 range overall. Atrial fibrillation I48.91 Bone spur M77.9 Diabetes type 1, controlled E10.9 dx : last exacerbation : dka : years ago hypoglycemic episode : years ago er visit :years ago Heart murmur R01.1 Asthma J45.909 Cataracts, bilateral H26.9 Hypertension I10 A. fib with RVR, new onset (Inactive) New onset a-fib (Inactive) I48.91 Allergies No Known Allergies Allergy (Verified 09/25/17 10:55) Home Medications: Ambulatory Orders Medication Instructions Recorded apixaban 2.5 mg tablet 2.5 mg PO BID 07/22/17 Amiodarone HCl [Amiodarone HCl] 400 mg PO DAILY 07/29/17 carvedilol 3.125 mg tablet 3.125 mg PO BID #180 tab 08/02/17 furosemide 40 mg tablet 20 mg PO BID 09/06/17 levothyroxine 50 mcg tablet 50 mcg PO QDAY #90 tab 09/06/17 aspirin 81 mg chewable tablet 81 mg PO QDAY 09/08/17 Insulin Lispro [Humalog] See Protocol SC CONT 09/25/17 Surgical History: no surgical history Psychiatric History: No pertinent psych hx Lives: Alone Smoking Status: Never smoker - *Family History Sibling Family History: Family History (Last Reviewed 09/08/17 @ 16:11 by Camille Escalante) Father Kidney disease Cancer History Items: Heart Disease - Had some cardiac surgery. Review of Systems Constitutional: Denies: Chills, Fever Eyes: Denies: Blurred vision, Double vision HEENT: Denies: Head Aches, Sinus Congestion, Sinus Drainage Cardiovascular: Denies: Chest Pain, Palpitations Respiratory: Denies: Cough, Shortness of breath at rest, Sputum production Gastrointestinal: Denies: Abdominal Pain, Nausea, Vomiting Genitourinary: Denies: Dysuria Musculoskeletal: Denies: Joint Pain, Joint Tenderness Skin: Denies: Rash, Wounds Neurological: Denies: Numbness, Tingling, Focal weakness Psychiatric: Denies: Anxiety, Depression, Homicidal Ideations, Suicidal Ideations Hematologic/ Lymphatic: Denies: Easy Bruising, Easy Bleeding Objective: The patient's most recent lab work, culture data and imaging studies have all been personally reviewed. - Physical Exam General: Alert, Cooperative, No apparent distress HEENT: Atraumatic, PERRLA, Normocephalic, - - Mild left periorbital edema Oral: No Gingival or Mucosal Lesions/ Ulcerations Neck: Supple, No Nodes, Trachea Midline Lungs: Diminished, Rales Cardiovascular: Normal S1, Normal S2, Irregular Rate, Murmur Abdomen: Bowel Sounds Present, Soft, Non Tender, Non-Distended Extremities: No clubbing, No cyanosis, No edema Skin: No breakdown Musculoskeletal: No Tenderness to Palpation of Joints or Extremities Lymphatic: No Cervical, Supraclavicular, or Inguinal Adenopathy Neurological: Neuro grossly intact Psych/Mental Status: Normal Affect, Appropriate Vital Signs Temp Pulse Resp BP Pulse Ox 98.6 F 67 16 109/55 L 96 09/26/17 03:40 09/26/17 07:14 09/26/17 03:40 09/26/17 03:40 09/26/17 03:40 Oxygen Flow Rate (L/min) 2 Oxygen Delivery Method Nasal Cannula Weight: 114 lb 13.773 oz Body Mass Index (BMI) 20.3 Intake and Output for Last 24 Hours 09/24/17 09/25/17 09/26/17 23:59 23:59 23:59 Intake Total 120 / 120 140 / 140 Output Total 200 / 200 Balance 120 / 120 -60 / -60 Laboratory Tests Past 24 Hrs 09/26/17 09/26/17 06:25 06:25 WBC 8.0 RBC 3.41 L Hgb 9.6 L Hct 30.2 L MCV 88.6 MCH 28.2 MCHC 31.8 L RDW 15.3 H RDW Differential 48.9 H Plt Count 337 MPV 9.7 Immature Gran % (Auto) 0.100 Neut % (Auto) 65.8 Lymph % (Auto) 15.9 L [place] % (Auto) 13.1 H Eos % (Auto) 4.8 Baso % (Auto) 0.3 Absolute Neuts (auto) 5.3 Absolute Lymphs (auto) 1.27 Total Counted Not Reportable Sodium 137 Potassium 4.4 Chloride 100 Carbon Dioxide 30.0 Anion Gap 7 BUN 25 H Creatinine 0.92 Estim Creat Clear Calc 39.44 Est GFR (MDRD) Af Amer 76 Est GFR (MDRD) Non-Af 62 BUN/Creatinine Ratio 27.2 H Glucose 216 H Calcium 8.3 L POC Glucose 09/26/17 09/25/17 09/25/17 06:46 22:06 18:09 POC Glucose 234 H 303 H 194 H Clinical Impression(s) from Imaging Studies Brain CT 09/25/17 11:51 IMPRESSION: 1. No acute intracranial or calvarial abnormality or major interval change. 2. Decreasing left preseptal cellulitis with compared to prior exam. There is no evidence of orbital involvement. Electronically Signed: Alejandro Hall DO at 12:54 EDT Tel [phone], Service support , Chest X-Ray 09/25/17 12:35 IMPRESSION: 1. Enlarging right pleural effusion and atelectasis when compared to prior study. 2. Decreasing vascular congestion. Electronically Signed: Alejandro Hall DO at 13:00 EDT Tel [phone], Service support , Assessment/Plan All Active Problems (Last Reviewed 09/08/17 @ 16:11 by Camille Escalante) DKA (diabetic ketoacidoses) (Resolved) Periorbital cellulitis of left eye (Resolved) RECOMMENDATIONS: 1. Continue to hold Eliquis. Check coags in the morning. 2. Place order for ultrasound-guided thoracentesis to be completed in radiology tomorrow. 3. Send pleural fluid for cultures and cytology. Check serum total protein and LDH levels. 4. Wean supplemental oxygen to maintain saturations at or above 90%. 5. Encourage incentive spirometer use. IMPRESSIONS: 1. Acute hypoxic respiratory insufficiency in the setting of a moderate right sided pleural effusion Continue to wean supplemental oxygen to maintain saturations at or above 90%. The patient's home Eliquis dose has been on hold now for 2 days. Recommend continuing to hold the aforementioned medication. Please order for ultrasound-guided thoracentesis, which can likely be completed tomorrow. Please send pleural fluid studies for cultures and cytology. Check coags tomorrow morning. 2. Hypothyroidism/heart failure with preserved ejection fraction/diabetes/paroxysmal atrial fibrillation/hyperlipidemia/history of DVT Complicates care, management, recovery and prognosis. Continue home medications, with the exception of Eliquis, which will be placed on hold in preparation for upcoming thoracentesis. This note was generated with [employer] dictation software. It may contain incorrect words, spelling, and punctuation that were not noted in checking the note before signing. Code Visit Inpatient E&M: 29197 Init Hosp L3
--- NOTE | 2017-09-26 08:54 | CON.PCM_ITS ---
Reason for Consult Date of Consultation: 09/26/17 Reason for Consultation: Right pleural effusion History of Present Illness: The patient is a 82-year-old female, with a history as outlined below, who presented to the emergency department on September 25 with complaints of periorbital edema. The patient has a history of atrial fibrillation, DVT, heart failure and valvular heart disease along with mild pulmonary hypertension. She does have a history previously of small bilateral pleural effusions. She notes a smoking history of 0.5 packs per day ?15 years, having quit completely 40+ years ago. She does not have a baseline supplemental oxygen requirement. On presentation to the emergency department, the patient was noted to be afebrile hemodynamically stable. She was initially maintaining oxygen saturations in the 80s on room air. Laboratory evaluation revealed no evidence of a leukocytosis. Chemistry profile revealed an elevated creatinine to 1.20. Troponin was negative and BNP was mildly elevated to 213. TSH was increased to 12.2. Plain film chest x-ray revealed a moderate-sized right-sided pleural effusion. The patient was subsequently admitted to the progressive care unit for ongoing management. Past Medical History Past Medical History (Chronic Problems): Chronic Problems (Last Reviewed 09/08/17 @ 16:11 by Camille Escalante) Secondary pulmonary arterial hypertension (Chronic) Nonrheumatic mitral (valve) insufficiency (Chronic) halfway current use of amiodarone (Chronic) Paroxysmal atrial fibrillation (Chronic) DVT (deep venous thrombosis) (Chronic) Right-sided heart failure (Chronic) Hyperlipidemia due to type 1 diabetes mellitus (Chronic) Uncontrolled type 1 diabetes mellitus with complication, without long-term current use of insulin (Chronic) Doing fairly well. Appetite is fairly good. She reports no issues. Swelling inlegs sl improved. She has resumed her gardening and painting. Sleep is good. Denies any issues. Today her insulin pump is downlaoded. No extreme Bg readings. Bg 140-200 range overall. Medical History: Medical History (Last Reviewed 09/08/17 @ 16:11 by Camille Escalante) Secondary pulmonary arterial hypertension (Chronic) I27.21 Nonrheumatic mitral (valve) insufficiency (Chronic) I34.0 Paroxysmal atrial fibrillation (Chronic) I48.0 DVT (deep venous thrombosis) (Chronic) I82.409 Right-sided heart failure (Chronic) I50.810 Hyperlipidemia due to type 1 diabetes mellitus (Chronic) E10.69, E78.5 Uncontrolled type 1 diabetes mellitus with complication, without long-term current use of insulin (Chronic) E10.8, E10.65 Doing fairly well. Appetite is fairly good. She reports no issues. Swelling inlegs sl improved. She has resumed her gardening and painting. Sleep is good. Denies any issues. Today her insulin pump is downlaoded. No extreme Bg readings. Bg 140-200 range overall. Atrial fibrillation I48.91 Bone spur M77.9 Diabetes type 1, controlled E10.9 dx : last exacerbation : dka : years ago hypoglycemic episode : years ago er visit :years ago Heart murmur R01.1 Asthma J45.909 Cataracts, bilateral H26.9 Hypertension I10 A. fib with RVR, new onset (Inactive) New onset a-fib (Inactive) I48.91 Allergies No Known Allergies Allergy (Verified 09/25/17 10:55) Home Medications: Ambulatory Orders Medication Instructions Recorded apixaban 2.5 mg tablet 2.5 mg PO BID 07/22/17 Amiodarone HCl [Amiodarone HCl] 400 mg PO DAILY 07/29/17 carvedilol 3.125 mg tablet 3.125 mg PO BID #180 tab 08/02/17 furosemide 40 mg tablet 20 mg PO BID 09/06/17 levothyroxine 50 mcg tablet 50 mcg PO QDAY #90 tab 09/06/17 aspirin 81 mg chewable tablet 81 mg PO QDAY 09/08/17 Insulin Lispro [Humalog] See Protocol SC CONT 09/25/17 Surgical History: no surgical history Psychiatric History: No pertinent psych hx Lives: Alone Smoking Status: Never smoker - *Family History Sibling Family History: Family History (Last Reviewed 09/08/17 @ 16:11 by Camille Escalante) Father Kidney disease Cancer History Items: Heart Disease - Had some cardiac surgery. Review of Systems Constitutional: Denies: Chills, Fever Eyes: Denies: Blurred vision, Double vision HEENT: Denies: Head Aches, Sinus Congestion, Sinus Drainage Cardiovascular: Denies: Chest Pain, Palpitations Respiratory: Denies: Cough, Shortness of breath at rest, Sputum production Gastrointestinal: Denies: Abdominal Pain, Nausea, Vomiting Genitourinary: Denies: Dysuria Musculoskeletal: Denies: Joint Pain, Joint Tenderness Skin: Denies: Rash, Wounds Neurological: Denies: Numbness, Tingling, Focal weakness Psychiatric: Denies: Anxiety, Depression, Homicidal Ideations, Suicidal Ideations Hematologic/ Lymphatic: Denies: Easy Bruising, Easy Bleeding Objective: The patient's most recent lab work, culture data and imaging studies have all been personally reviewed. - Physical Exam General: Alert, Cooperative, No apparent distress HEENT: Atraumatic, PERRLA, Normocephalic, - - Mild left periorbital edema Oral: No Gingival or Mucosal Lesions/ Ulcerations Neck: Supple, No Nodes, Trachea Midline Lungs: Diminished, Rales Cardiovascular: Normal S1, Normal S2, Irregular Rate, Murmur Abdomen: Bowel Sounds Present, Soft, Non Tender, Non-Distended Extremities: No clubbing, No cyanosis, No edema Skin: No breakdown Musculoskeletal: No Tenderness to Palpation of Joints or Extremities Lymphatic: No Cervical, Supraclavicular, or Inguinal Adenopathy Neurological: Neuro grossly intact Psych/Mental Status: Normal Affect, Appropriate Vital Signs Temp Pulse Resp BP Pulse Ox 98.6 F 67 16 109/55 L 96 09/26/17 03:40 09/26/17 07:14 09/26/17 03:40 09/26/17 03:40 09/26/17 03:40 Oxygen Flow Rate (L/min) 2 Oxygen Delivery Method Nasal Cannula Weight: 114 lb 13.773 oz Body Mass Index (BMI) 20.3 Intake and Output for Last 24 Hours 09/24/17 09/25/17 09/26/17 23:59 23:59 23:59 Intake Total 120 / 120 140 / 140 Output Total 200 / 200 Balance 120 / 120 -60 / -60 Laboratory Tests Past 24 Hrs 09/26/17 09/26/17 06:25 06:25 WBC 8.0 RBC 3.41 L Hgb 9.6 L Hct 30.2 L MCV 88.6 MCH 28.2 MCHC 31.8 L RDW 15.3 H RDW Differential 48.9 H Plt Count 337 MPV 9.7 Immature Gran % (Auto) 0.100 Neut % (Auto) 65.8 Lymph % (Auto) 15.9 L [place] % (Auto) 13.1 H Eos % (Auto) 4.8 Baso % (Auto) 0.3 Absolute Neuts (auto) 5.3 Absolute Lymphs (auto) 1.27 Total Counted Not Reportable Sodium 137 Potassium 4.4 Chloride 100 Carbon Dioxide 30.0 Anion Gap 7 BUN 25 H Creatinine 0.92 Estim Creat Clear Calc 39.44 Est GFR (MDRD) Af Amer 76 Est GFR (MDRD) Non-Af 62 BUN/Creatinine Ratio 27.2 H Glucose 216 H Calcium 8.3 L POC Glucose 09/26/17 09/25/17 09/25/17 06:46 22:06 18:09 POC Glucose 234 H 303 H 194 H Clinical Impression(s) from Imaging Studies Brain CT 09/25/17 11:51 IMPRESSION: 1. No acute intracranial or calvarial abnormality or major interval change. 2. Decreasing left preseptal cellulitis with compared to prior exam. There is no evidence of orbital involvement. Electronically Signed: Alejandro Hall DO at 12:54 EDT Tel [phone], Service support , Chest X-Ray 09/25/17 12:35 IMPRESSION: 1. Enlarging right pleural effusion and atelectasis when compared to prior study. 2. Decreasing vascular congestion. Electronically Signed: Alejandro Hall DO at 13:00 EDT Tel [phone], Service support , Assessment/Plan All Active Problems (Last Reviewed 09/08/17 @ 16:11 by Camille Escalante) DKA (diabetic ketoacidoses) (Resolved) Periorbital cellulitis of left eye (Resolved) RECOMMENDATIONS: 1. Continue to hold Eliquis. Check coags in the morning. 2. Place order for ultrasound-guided thoracentesis to be completed in radiology tomorrow. 3. Send pleural fluid for cultures and cytology. Check serum total protein and LDH levels. 4. Wean supplemental oxygen to maintain saturations at or above 90%. 5. Encourage incentive spirometer use. IMPRESSIONS: 1. Acute hypoxic respiratory insufficiency in the setting of a moderate right sided pleural effusion Continue to wean supplemental oxygen to maintain saturations at or above 90%. The patient's home Eliquis dose has been on hold now for 2 days. Recommend continuing to hold the aforementioned medication. Please order for ultrasound- guided thoracentesis, which can likely be completed tomorrow. Please send pleural fluid studies for cultures and cytology. Check coags tomorrow morning. 2. Hypothyroidism/heart failure with preserved ejection fraction/diabetes/ paroxysmal atrial fibrillation/hyperlipidemia/history of DVT Complicates care, management, recovery and prognosis. Continue home medications , with the exception of Eliquis, which will be placed on hold in preparation for upcoming thoracentesis. This note was generated with [email or web address] dictation software. It may contain incorrect words, spelling, and punctuation that were not noted in checking the note before signing. Code Visit Inpatient E&M: 77136 Init Hosp L3
[2017-09-26] MEDS: Carvedilol 3.125 MG TABLET PO ×2 (10:07→21:52)
[2017-09-26] MEDS: Amiodarone 200 MG Tablet 400 MG PO (10:07)
[2017-09-26] MEDS: Furosemide 20 MG Tablet PO ×2 (10:08→18:04)
--- NOTE | 2017-09-26 11:36 | PCM.PN.HOSP ---
Subjective: The patient is a 82 year old F with past medical history of paroxysmal atrial fibrillation, history of DVT, right-sided heart failure, type 1 diabetes mellitus, secondary pulmonary arterial hypertension, hyperlipidemia mitral valve insufficiency. Patient was admitted via the ED on 09/25/2017 with complaint of left-sided periorbital swelling. Patient was admitted and June for orbital cellulitis for which she was transferred to [facility] and according to where he was found out that it was due to a fungal infection. As such when she noted that her eye was getting edematous again she became concerned and her daughter brought her to the ED. the ED, she also complained of increased swelling of the lower extremities extending to her abdomen. She had been concerned about her diuretic. She denied any shortness of breath, or cough, chest pain, diarrhea vomiting. She has not had any fever either. Was walking to the bathroom she was noted to desaturate to 85%. Chest x-ray done showed a right-sided pleural effusion. Patient is also on Eliquis for A. fib. She is being managed for right sided pleural effusion. Eliquis is on hold. Pulmonology has been consulted. Patient seen and examined this morning. She had no complaints and denied any shortness of breath. She was happy that her left periorbital swelling and bilateral lower extremity swelling had resolved. She denied any fever, chills, cough, chest pain, SOB, abdominal pain, diarrhea or vomiting. Review of sytsems is otherwise negative. Vitals/I&O's: Vital Signs Temp Pulse Resp BP Pulse Ox 99.1 F 66 16 148/74 H 97 09/26/17 09:40 09/26/17 11:13 09/26/17 09:40 09/26/17 09:40 09/26/17 09:40 Oxygen Flow Rate (L/min) 2 Oxygen Delivery Method Nasal Cannula Weight: 114 lb 13.773 oz Body Mass Index (BMI) 20.3 Intake and Output for Last 24 Hours 09/24/17 09/25/17 09/26/17 23:59 23:59 23:59 Intake Total 120 / 120 140 / 140 Output Total 200 / 200 Balance 120 / 120 -60 / -60 General: Alert, Oriented x3, Cooperative, No apparent distress HEENT: Atraumatic, PERRLA, EOMI, Normocephalic Oral: Moist Mucosa Neck: Supple, No JVD, Negative Carotid Bruits Lungs: - - severely diminished breath sounds in right mid and lower lung bernard, with decreased tactile and vocal fremitus Cardiovascular: Regular rate, Regular Rhythm, Normal S1, Normal S2, No murmurs Abdomen: Bowel Sounds Present, Soft, Non Tender, Non-Distended, No Hepato-splenomegaly Extremities: No clubbing, No cyanosis, No edema, Capillary Refill Less than 3 Seconds Skin: No rashes, No breakdown Musculoskeletal: No Tenderness to Palpation of Joints or Extremities Lymphatic: No Cervical, Supraclavicular, or Inguinal Adenopathy Neurological: Cranial nerves II-XII grossly intact Psych/Mental Status: Normal Affect, Appropriate, Alert and oriented to time, place, person, mood and affect Laboratory Results 09/25/17 18:09: POC Glucose 194 H 09/25/17 22:06: POC Glucose 303 H 09/26/17 06:25: WBC 8.0, RBC 3.41 L, Hgb 9.6 L, Hct 30.2 L, MCV 88.6, MCH 28.2, MCHC 31.8 L, RDW 15.3 H, RDW Differential 48.9 H, Plt Count 337, MPV 9.7, Immature Gran % (Auto) 0.100, Neut % (Auto) 65.8, Lymph % (Auto) 15.9 L, [place] % (Auto) 13.1 H, Eos % (Auto) 4.8, Baso % (Auto) 0.3, Absolute Neuts (auto) 5.3, Absolute Lymphs (auto) 1.27, Total Counted Not Reportable 09/26/17 06:25: Sodium 137, Potassium 4.4, Chloride 100, Carbon Dioxide 30.0, Anion Gap 7, BUN 25 H, Creatinine 0.92, Estim Creat Clear Calc 39.44, Est GFR (MDRD) Af Amer 76, Est GFR (MDRD) Non-Af 62, BUN/Creatinine Ratio 27.2 H, Glucose 216 H, Calcium 8.3 L 09/26/17 06:46: POC Glucose 234 H Current Medications Amiodarone HCl (Cordarone) 400 mg PO DAILY [facility] Last Admin: 09/26/17 10:07 Dose: 400 mg Carvedilol (Coreg) 3.125 mg PO BID [facility] Last Admin: 09/26/17 10:07 Dose: 3.125 mg Dextrose (D50w Syringe) 0 gm IV X1 PRN; Protocol PRN Reason: Hypoglycemia Furosemide (Lasix) 20 mg PO BIDLX [facility] Last Admin: 09/26/17 10:08 Dose: 20 mg Glucagon () 1 mg IM .X1 PRN PRN Reason: Hypoglycemia Insulin Human Lispro (Humalog Kwikpen (Bkc)) 0 unit SQ ACHS [facility] PRN Reason: Protocol Last Admin: 09/26/17 10:02 Dose: Not Given Levothyroxine Sodium (Synthroid) 50 mcg PO DAILY@0600 [facility] Last Admin: 09/26/17 05:29 Dose: 50 mcg Levothyroxine Sodium (Synthroid) 12.5 mcg PO DAILY@0600 [facility] Last Admin: 09/26/17 05:29 Dose: 12.5 mcg Magnesium Hydroxide (Milk Of Magnesia) 30 ml PO DAILY PRN PRN PRN Reason: Constipation Sodium Chloride () 5 - 30 ml IV UD PRN PRN Reason: SALINE FLUSH Last Admin: 09/25/17 22:13 Dose: 10 ml Medical Necessity - Tobacco Use Smoking Status: Never smoker Assessment/Plan All Active Problems (Last Reviewed 09/08/17 @ 16:11 by Camille Escalante) DKA (diabetic ketoacidoses) (Resolved) Periorbital cellulitis of left eye (Resolved) 82 y/o female presenting with a complaint of left eye periorbital swelling and found to have hypoxia with ambulation. CXR showed right sided pleural effusion. 1. Right Pleural effusion stable. Denies SOB. CXR showed: increasing right pleural effusion and atelectatic changes in right lung base compared to previous study.Decreasing vascular congestion eliquis on hold. titrate oxygen by nasal canula to maintain saturation to >92% pulmonology on board for US guided thoracocentesis tomorrow will check for pleural fluid LDH, cell count and cytology, etc will keep NPO past midnight for procedure 2. Acute hypoxic respiratory failure due to pleural effusion saturating well on 2L of oxygen by nasal canula for thoracocentesis tomorrow pulmonology on board 3. RIght periorbital swelling had orbital cellulitis in June, and it was found to be fungal after transfer to [facility] resolving. Has gone down significantly will monitor 4. Hypothyroidism poorly controlled. TSH is 12.2 On Synthroid 50 mcg daily. Increased synthroid to 67.5mcg daily. will monitor 5. HFpEF stable on lasix 20mg bid and Coreg. Will monitor 6. Type 1 diabetes mellitus: Accu-Cheks before meals at bedtime. On insulin pump. 7. Paroxysmal Afib: Rate controlled. Eliquis on hold 8. Hyperlipidemia: Statin. 9. History of DVT: Had DVT in ~ May 2017. cannot remember whether it was one LE or both. Eliquis on hold o/a of need for thoracocentesis DVT prophylaxis: SCDs Code Visit Inpatient E&M: 18592 Subs Hosp L3
--- NOTE | 2017-09-26 11:46 | PN_ITS ---
Subjective: The patient is a 82 year old F with past medical history of paroxysmal atrial fibrillation, history of DVT, right-sided heart failure, type 1 diabetes mellitus, secondary pulmonary arterial hypertension, hyperlipidemia mitral valve insufficiency. Patient was admitted via the ED on 09/25/2017 with complaint of left-sided periorbital swelling. Patient was admitted and June for orbital cellulitis for which she was transferred to [facility] and according to where he was found out that it was due to a fungal infection. As such when she noted that her eye was getting edematous again she became concerned and her daughter brought her to the ED. the ED, she also complained of increased swelling of the lower extremities extending to her abdomen. She had been concerned about her diuretic. She denied any shortness of breath, or cough, chest pain, diarrhea vomiting. She has not had any fever either. Was walking to the bathroom she was noted to desaturate to 85%. Chest x-ray done showed a right-sided pleural effusion. Patient is also on Eliquis for A. fib. She is being managed for right sided pleural effusion. Eliquis is on hold. Pulmonology has been consulted. Patient seen and examined this morning. She had no complaints and denied any shortness of breath. She was happy that her left periorbital swelling and bilateral lower extremity swelling had resolved. She denied any fever, chills, cough, chest pain, SOB, abdominal pain, diarrhea or vomiting. Review of sytsems is otherwise negative. Vitals/I&O's: Vital Signs Temp Pulse Resp BP Pulse Ox 99.1 F 66 16 148/74 H 97 09/26/17 09:40 09/26/17 11:13 09/26/17 09:40 09/26/17 09:40 09/26/17 09:40 Oxygen Flow Rate (L/min) 2 Oxygen Delivery Method Nasal Cannula Weight: 114 lb 13.773 oz Body Mass Index (BMI) 20.3 Intake and Output for Last 24 Hours 09/24/17 09/25/17 09/26/17 23:59 23:59 23:59 Intake Total 120 / 120 140 / 140 Output Total 200 / 200 Balance 120 / 120 -60 / -60 General: Alert, Oriented x3, Cooperative, No apparent distress HEENT: Atraumatic, PERRLA, EOMI, Normocephalic Oral: Moist Mucosa Neck: Supple, No JVD, Negative Carotid Bruits Lungs: - - severely diminished breath sounds in right mid and lower lung bernard , with decreased tactile and vocal fremitus Cardiovascular: Regular rate, Regular Rhythm, Normal S1, Normal S2, No murmurs Abdomen: Bowel Sounds Present, Soft, Non Tender, Non-Distended, No Hepato- splenomegaly Extremities: No clubbing, No cyanosis, No edema, Capillary Refill Less than 3 Seconds Skin: No rashes, No breakdown Musculoskeletal: No Tenderness to Palpation of Joints or Extremities Lymphatic: No Cervical, Supraclavicular, or Inguinal Adenopathy Neurological: Cranial nerves II-XII grossly intact Psych/Mental Status: Normal Affect, Appropriate, Alert and oriented to time, place, person, mood and affect Laboratory Results 09/25/17 18:09: POC Glucose 194 H 09/25/17 22:06: POC Glucose 303 H 09/26/17 06:25: WBC 8.0, RBC 3.41 L, Hgb 9.6 L, Hct 30.2 L, MCV 88.6, MCH 28.2, MCHC 31.8 L, RDW 15.3 H, RDW Differential 48.9 H, Plt Count 337, MPV 9.7, Immature Gran % (Auto) 0.100, Neut % (Auto) 65.8, Lymph % (Auto) 15.9 L, [place] % (Auto) 13.1 H, Eos % (Auto) 4.8, Baso % (Auto) 0.3, Absolute Neuts (auto) 5.3, Absolute Lymphs (auto) 1.27, Total Counted Not Reportable 09/26/17 06:25: Sodium 137, Potassium 4.4, Chloride 100, Carbon Dioxide 30.0, Anion Gap 7, BUN 25 H, Creatinine 0.92, Estim Creat Clear Calc 39.44, Est GFR ( MDRD) Af Amer 76, Est GFR (MDRD) Non-Af 62, BUN/Creatinine Ratio 27.2 H, Glucose 216 H, Calcium 8.3 L 09/26/17 06:46: POC Glucose 234 H Current Medications Amiodarone HCl (Cordarone) 400 mg PO DAILY [facility] Last Admin: 09/26/17 10:07 Dose: 400 mg Carvedilol (Coreg) 3.125 mg PO BID [facility] Last Admin: 09/26/17 10:07 Dose: 3.125 mg Dextrose (D50w Syringe) 0 gm IV X1 PRN; Protocol PRN Reason: Hypoglycemia Furosemide (Lasix) 20 mg PO BIDLX [facility] Last Admin: 09/26/17 10:08 Dose: 20 mg Glucagon () 1 mg IM .X1 PRN PRN Reason: Hypoglycemia Insulin Human Lispro (Humalog Kwikpen (Bkc)) 0 unit SQ ACHS [facility] PRN Reason: Protocol Last Admin: 09/26/17 10:02 Dose: Not Given Levothyroxine Sodium (Synthroid) 50 mcg PO DAILY@0600 [facility] Last Admin: 09/26/17 05:29 Dose: 50 mcg Levothyroxine Sodium (Synthroid) 12.5 mcg PO DAILY@0600 [facility] Last Admin: 09/26/17 05:29 Dose: 12.5 mcg Magnesium Hydroxide (Milk Of Magnesia) 30 ml PO DAILY PRN PRN PRN Reason: Constipation Sodium Chloride () 5 - 30 ml IV UD PRN PRN Reason: SALINE FLUSH Last Admin: 09/25/17 22:13 Dose: 10 ml Medical Necessity - Tobacco Use Smoking Status: Never smoker Assessment/Plan All Active Problems (Last Reviewed 09/08/17 @ 16:11 by Camille Escalante) DKA (diabetic ketoacidoses) (Resolved) Periorbital cellulitis of left eye (Resolved) 82 y/o female presenting with a complaint of left eye periorbital swelling and found to have hypoxia with ambulation. CXR showed right sided pleural effusion. 1. Right Pleural effusion * stable. Denies SOB. * CXR showed: increasing right pleural effusion and atelectatic changes in right lung base compared to previous study.Decreasing vascular congestion * eliquis on hold. * titrate oxygen by nasal canula to maintain saturation to >92% * pulmonology on board * for US guided thoracocentesis tomorrow * will check for pleural fluid LDH, cell count and cytology, etc * will keep NPO past midnight for procedure * 2. Acute hypoxic respiratory failure due to pleural effusion * saturating well on 2L of oxygen by nasal canula * for thoracocentesis tomorrow * pulmonology on board * * 3. RIght periorbital swelling * had orbital cellulitis in June, and it was found to be fungal after transfer to [facility] * resolving. Has gone down significantly * will monitor * 4. Hypothyroidism * poorly controlled. TSH is 12.2 * On Synthroid 50 mcg daily. Increased synthroid to 67.5mcg daily. * will monitor 5. HFpEF * stable * on lasix 20mg bid and Coreg. Will monitor * 6. Type 1 diabetes mellitus: Accu-Cheks before meals at bedtime. On insulin pump. 7. Paroxysmal Afib: Rate controlled. Eliquis on hold 8. Hyperlipidemia: Statin. 9. History of DVT: Had DVT in ~ May 2017. cannot remember whether it was one LE or both. Eliquis on hold o/a of need for thoracocentesis DVT prophylaxis: SCDs Code Visit Inpatient E&M: 30117 Subs Hosp L3
[2017-09-26 12:11] LABS: Bedside Glucose 325 mg/dL (70-110)
[2017-09-26 18:10] LABS: Bedside Glucose 227 mg/dL (70-110)
[2017-09-26 22:01] LABS: Bedside Glucose 226 mg/dL (70-110)
[2017-09-27] VITALS (10 sets, daily range): BP systolic 120–145; BP diastolic 58–71; PULSE 57–65; RESP 16–18; TEMP 36.6–36.9; O2SAT 96–100
[2017-09-27 05:25] LABS: Absolute Lymphocyte Count 1.62 X10^3/ul (0.83-4.51); Absolute Neutrophil Count 4.5 X10^3/uL (2.0-7.7); Basophil# 0.04 X10^3/uL; Basophil% 0.5 % (0-1); Eosinophil# 0.47 X10^3/uL; Eosinophils% 6.1 % (0-5); Hematocrit 29.7 % (37-47); Hemoglobin 9.6 g/dl (12.0-15.0); Lymphocyte # 1.62 X10^3/ul (4.0); Lymphocyte % 20.9 % (19-41); Mean Corp Hgb Conc 32.3 g/gl (32-36); Mean Corpuscular Hgb 28.6 pg (27.0-32.0); Mean Corpuscular Volume 88.4 fL (81-99); Mean Platelet Vol. 9.7 fl (6.2-12.0); Monocyte# 1.06 X10^3/uL; Monocyte% 13.7 % (0-10); Neutrophil # 4.53 X10^3/uL (2.7-7.7); Neutrophil % 58.4 % (47-70); Platelet Count 324 K/mm3 (150-450); RBC Distribution Width CV 15.5 % (11.6-14.6); RBC Distribution Width SD 48.7 fl (35.1-43.9); Red Blood Count 3.36 M/mm3 (4.2-5.4); White Blood Count 7.8 K/mm3 (4.4-11.0)
[2017-09-27 05:33] LABS: International Normalized Ratio 1.2; Prothrombin Time (Protime)PT. 15.1 SECONDS (11.7-14.9)
[2017-09-27] MEDS: Levothyroxine 25 MCG TABLET 12.5 MCG PO (06:01)
[2017-09-27] MEDS: Levothyroxine 50 MCG Tablet PO (06:01)
[2017-09-27] MEDS: 0.9% NaCl Peripheral Flush Adult/Peds IV (06:01)
[2017-09-27 06:02] LABS: ALB/GLOB Ratio 0.6 RATIO (0.9-2.4); Anion Gap 7 (5-15); BUN 21 mg/dL (7-18); BUN/Creat Ratio 21.3 RATIO (10-20); Calcium,Total 8.4 mg/dL (8.5-10.1); Chloride 100 mmol/L (98-107); Creatinine, Serum 0.98 mg/dL (0.55-1.02); EST Glomerular Filtration Rate 58 mL/min (>60); Est Glom Filt Rate - Afr Amer 70 mL/min (>60); Estimated Creatinine Clearance 37.03 ml/min; Globulin 3.9 g/dL (2.2-4.2); Glucose 166 mg/dL (74-106); LDH 196 U/L (84-246); Potassium 4.2 mmol/L (3.5-5.1); Protein, Total 6.3 g/dL (6.4-8.2); Sodium Level 139 mmol/L (136-145)
[2017-09-27 06:33] LABS: POSITIVE COUNT NO; POSITIVE DIFFERENTIAL NO; POSITIVE MORPHOLOGY NO
[2017-09-27 07:06] LABS: Bedside Glucose 205 mg/dL (70-110)
--- NOTE | 2017-09-27 09:36 | PCM.PROGNOTE ---
Subjective: The patient was seen and examined. She denies any complaints, is minimally short of breath on exertion. No chest pain, cough, or sputum production. She is maintaining appropriate saturations on 2 L of oxygen. Denies any home oxygen use. She did have a temp of 100.4 last evening, currently afebrile and hemodynamically stable. She remains n.p.o. for anticipation of thoracentesis today, however nursing staff reports scheduling difficulties and may have to wait until tomorrow for procedure. Objective: Recent lab data reviewed. INR this morning is 1.2. Clinical Impression(s) from Imaging Studies Chest X-Ray 09/25/17 12:35 IMPRESSION: 1. Enlarging right pleural effusion and atelectasis when compared to prior study. 2. Decreasing vascular congestion. Electronically Signed: Alejandro Hall DO at 13:00 EDT Tel [phone], Service support , - Physical Exam General: Alert, Oriented x3, Cooperative, No apparent distress HEENT: Atraumatic, Normocephalic, - - L eye scant ecchymosis, chronic Oral: Moist Mucosa, No Gingival or Mucosal Lesions/ Ulcerations Neck: Supple, No Nodes, Trachea Midline Lungs: No rhonchi, No wheeze, Rales, - - Right lung with very little air movement, left CTA Cardiovascular: Normal S1, Normal S2, Irregular Rate, Murmur, No rub noted, No Gallop Abdomen: Bowel Sounds Present, Soft, Non Tender, Non-Distended Extremities: No clubbing, No cyanosis, Edema Skin: No rashes, No breakdown Musculoskeletal: Tenderness - bilat LEs Lymphatic: No Cervical, Supraclavicular, or Inguinal Adenopathy Neurological: Cranial nerves II-XII grossly intact, Neuro grossly intact, Motor Exam 5/5 strength throughout Psych/Mental Status: Alert and oriented to time, place, person, mood and affect Vital Signs Temp Pulse Resp BP Pulse Ox 98.4 F 59 L 18 140/64 H 98 09/27/17 03:40 09/27/17 07:13 09/27/17 03:40 09/27/17 03:40 09/27/17 03:40 Oxygen Flow Rate (L/min) 2 Oxygen Delivery Method Nasal Cannula Weight: 114 lb 13.773 oz Body Mass Index (BMI) 20.3 Intake and Output for Last 24 Hours 09/25/17 09/26/17 09/27/17 23:59 23:59 23:59 Intake Total 120 / 120 800 / 800 Output Total 1000 / 1000 Balance 120 / 120 -200 / -200 Laboratory Tests Past 24 Hrs 09/27/17 09/27/17 09/27/17 05:16 05:16 05:16 WBC 7.8 RBC 3.36 L Hgb 9.6 L Hct 29.7 L MCV 88.4 MCH 28.6 MCHC 32.3 RDW 15.5 H RDW Differential 48.7 H Plt Count 324 MPV 9.7 Immature Gran % (Auto) 0.400 Neut % (Auto) 58.4 Lymph % (Auto) 20.9 [place] % (Auto) 13.7 H Eos % (Auto) 6.1 H Baso % (Auto) 0.5 Absolute Neuts (auto) 4.5 Absolute Lymphs (auto) 1.62 Total Counted Not Reportable PT 15.1 H INR 1.2 Sodium 139 Potassium 4.2 Chloride 100 Carbon Dioxide 32.0 Anion Gap 7 BUN 21 H Creatinine 0.98 Estim Creat Clear Calc 37.03 Est GFR (MDRD) Af Amer 70 Est GFR (MDRD) Non-Af 58 L BUN/Creatinine Ratio 21.3 H Glucose 166 H Calcium 8.4 L Lactate Dehydrogenase 196 Total Protein 6.3 L Globulin 3.9 Albumin/Globulin Ratio 0.6 L POC Glucose 09/27/17 09/26/17 09/26/17 07:01 21:50 17:59 POC Glucose 205 H 226 H 227 H 09/26/17 12:07 POC Glucose 325 H Medical Necessity - Tobacco Use Smoking Status: Never smoker Assessment/Plan All Active Problems (Last Reviewed 09/08/17 @ 16:11 by Camille Escalante) DKA (diabetic ketoacidoses) (Resolved) Periorbital cellulitis of left eye (Resolved) RECOMMENDATIONS: 1. Continue to hold Eliquis 2. Place order for ultrasound-guided thoracentesis to be completed in radiology 3. Send pleural fluid for cultures and cytology 4. Wean supplemental oxygen to maintain saturations at or above 90% 5. Encourage incentive spirometer use 6. Ambulate as tolerated, increase activity today IMPRESSIONS: 1. Acute hypoxic respiratory insufficiency in the setting of a moderate right sided pleural effusion Continue to wean supplemental oxygen to maintain saturations at or above 90%. The patient's home Eliquis dose has been on hold now for 2 days. Recommend continuing to hold the aforementioned medication. Plans for ultrasound-guided thoracentesis, which cannot be completed until 09/28 per nursing staff. Please send pleural fluid studies for cultures and cytology. Coags were checked. 2. Hypothyroidism/heart failure with preserved ejection fraction/diabetes/paroxysmal atrial fibrillation/hyperlipidemia/history of DVT Complicates care, management, recovery and prognosis. Continue home medications, with the exception of Eliquis, which was placed on hold in preparation for upcoming thoracentesis. This note was generated with [employer] dictation software. It may contain incorrect words, spelling, and punctuation that were not noted in checking the note before signing.
--- NOTE | 2017-09-27 09:49 | PN_ITS ---
Subjective: The patient was seen and examined. She denies any complaints, is minimally short of breath on exertion. No chest pain, cough, or sputum production. She is maintaining appropriate saturations on 2 L of oxygen. Denies any home oxygen use. She did have a temp of 100.4 last evening, currently afebrile and hemodynamically stable. She remains n.p.o. for anticipation of thoracentesis today, however nursing staff reports scheduling difficulties and may have to wait until tomorrow for procedure. Objective: Recent lab data reviewed. INR this morning is 1.2. Clinical Impression(s) from Imaging Studies Chest X-Ray 09/25/17 12:35 IMPRESSION: 1. Enlarging right pleural effusion and atelectasis when compared to prior study. 2. Decreasing vascular congestion. Electronically Signed: Alejandro Hall DO at 13:00 EDT Tel [phone], Service support , - Physical Exam General: Alert, Oriented x3, Cooperative, No apparent distress HEENT: Atraumatic, Normocephalic, - - L eye scant ecchymosis, chronic Oral: Moist Mucosa, No Gingival or Mucosal Lesions/ Ulcerations Neck: Supple, No Nodes, Trachea Midline Lungs: No rhonchi, No wheeze, Rales, - - Right lung with very little air movement, left CTA Cardiovascular: Normal S1, Normal S2, Irregular Rate, Murmur, No rub noted, No Gallop Abdomen: Bowel Sounds Present, Soft, Non Tender, Non-Distended Extremities: No clubbing, No cyanosis, Edema Skin: No rashes, No breakdown Musculoskeletal: Tenderness - bilat LEs Lymphatic: No Cervical, Supraclavicular, or Inguinal Adenopathy Neurological: Cranial nerves II-XII grossly intact, Neuro grossly intact, Motor Exam 5/5 strength throughout Psych/Mental Status: Alert and oriented to time, place, person, mood and affect Vital Signs Temp Pulse Resp BP Pulse Ox 98.4 F 59 L 18 140/64 H 98 09/27/17 03:40 09/27/17 07:13 09/27/17 03:40 09/27/17 03:40 09/27/17 03:40 Oxygen Flow Rate (L/min) 2 Oxygen Delivery Method Nasal Cannula Weight: 114 lb 13.773 oz Body Mass Index (BMI) 20.3 Intake and Output for Last 24 Hours 09/25/17 09/26/17 09/27/17 23:59 23:59 23:59 Intake Total 120 / 120 800 / 800 Output Total 1000 / 1000 Balance 120 / 120 -200 / -200 Laboratory Tests Past 24 Hrs 09/27/17 09/27/17 09/27/17 05:16 05:16 05:16 WBC 7.8 RBC 3.36 L Hgb 9.6 L Hct 29.7 L MCV 88.4 MCH 28.6 MCHC 32.3 RDW 15.5 H RDW Differential 48.7 H Plt Count 324 MPV 9.7 Immature Gran % (Auto) 0.400 Neut % (Auto) 58.4 Lymph % (Auto) 20.9 [place] % (Auto) 13.7 H Eos % (Auto) 6.1 H Baso % (Auto) 0.5 Absolute Neuts (auto) 4.5 Absolute Lymphs (auto) 1.62 Total Counted Not Reportable PT 15.1 H INR 1.2 Sodium 139 Potassium 4.2 Chloride 100 Carbon Dioxide 32.0 Anion Gap 7 BUN 21 H Creatinine 0.98 Estim Creat Clear Calc 37.03 Est GFR (MDRD) Af Amer 70 Est GFR (MDRD) Non-Af 58 L BUN/Creatinine Ratio 21.3 H Glucose 166 H Calcium 8.4 L Lactate Dehydrogenase 196 Total Protein 6.3 L Globulin 3.9 Albumin/Globulin Ratio 0.6 L POC Glucose 09/27/17 09/26/17 09/26/17 07:01 21:50 17:59 POC Glucose 205 H 226 H 227 H 09/26/17 12:07 POC Glucose 325 H Medical Necessity - Tobacco Use Smoking Status: Never smoker Assessment/Plan All Active Problems (Last Reviewed 09/08/17 @ 16:11 by Camille Escalante) DKA (diabetic ketoacidoses) (Resolved) Periorbital cellulitis of left eye (Resolved) RECOMMENDATIONS: 1. Continue to hold Eliquis 2. Place order for ultrasound-guided thoracentesis to be completed in radiology 3. Send pleural fluid for cultures and cytology 4. Wean supplemental oxygen to maintain saturations at or above 90% 5. Encourage incentive spirometer use 6. Ambulate as tolerated, increase activity today IMPRESSIONS: 1. Acute hypoxic respiratory insufficiency in the setting of a moderate right sided pleural effusion Continue to wean supplemental oxygen to maintain saturations at or above 90%. The patient's home Eliquis dose has been on hold now for 2 days. Recommend continuing to hold the aforementioned medication. Plans for ultrasound-guided thoracentesis, which cannot be completed until 09/28 per nursing staff. Please send pleural fluid studies for cultures and cytology. Coags were checked. 2. Hypothyroidism/heart failure with preserved ejection fraction/diabetes/ paroxysmal atrial fibrillation/hyperlipidemia/history of DVT Complicates care, management, recovery and prognosis. Continue home medications , with the exception of Eliquis, which was placed on hold in preparation for upcoming thoracentesis. This note was generated with [employer] dictation software. It may contain incorrect words, spelling, and punctuation that were not noted in checking the note before signing.
[2017-09-27] MEDS: Furosemide 20 MG Tablet PO ×2 (10:10→18:46)
[2017-09-27] MEDS: Carvedilol 3.125 MG TABLET PO ×2 (10:10→21:23)
[2017-09-27] MEDS: Amiodarone 200 MG Tablet 400 MG PO (10:10)
[2017-09-27 12:16] LABS: Bedside Glucose 179 mg/dL (70-110)
--- NOTE | 2017-09-27 13:00 | PCM.PN.HOSP ---
Subjective: Seen and examined. She has no complaints and feels very well. Is on 2 L of oxygen and feels very well. She denies any shortness of breath, any cough or chest pain, any abdominal pain, any diarrhea vomiting. She is happy that the edema of her lower extremities has also resolved. Review of systems otherwise negative. Vitals/I&O's: Vital Signs Temp Pulse Resp BP Pulse Ox 97.9 F 59 L 17 145/71 H 96 09/27/17 10:00 09/27/17 11:17 09/27/17 10:00 09/27/17 10:00 09/27/17 10:00 Oxygen Flow Rate (L/min) 2 Oxygen Delivery Method Nasal Cannula Weight: 114 lb 13.773 oz Body Mass Index (BMI) 20.3 Intake and Output for Last 24 Hours 09/25/17 09/26/17 09/27/17 23:59 23:59 23:59 Intake Total 120 / 120 800 / 800 120 / 120 Output Total 1000 / 1000 325 / 325 Balance 120 / 120 -200 / -200 -205 / -205 General: Alert, Oriented x3, Cooperative, No apparent distress HEENT: Atraumatic, PERRLA, EOMI, Normocephalic Oral: Moist Mucosa Neck: Supple, No JVD, Negative Carotid Bruits Lungs: - - Markedly decreased breath sounds in right mid and lower lung bernard with decreased tactile and vocal fremitus. Cardiovascular: Regular rate, Regular Rhythm, Normal S1, Normal S2, No murmurs Abdomen: Bowel Sounds Present, Soft, Non Tender, Non-Distended, No Hepato-splenomegaly Extremities: No clubbing, No cyanosis, Capillary Refill Less than 3 Seconds, - - Minimal edema of both lower extremities. Skin: No rashes, No breakdown Musculoskeletal: No Tenderness to Palpation of Joints or Extremities Lymphatic: No Cervical, Supraclavicular, or Inguinal Adenopathy Neurological: Cranial nerves II-XII grossly intact Psych/Mental Status: Normal Affect, Appropriate, Alert and oriented to time, place, person, mood and affect Laboratory Results 09/26/17 17:59: POC Glucose 227 H 09/26/17 21:50: POC Glucose 226 H 09/27/17 05:16: WBC 7.8, RBC 3.36 L, Hgb 9.6 L, Hct 29.7 L, MCV 88.4, MCH 28.6, MCHC 32.3, RDW 15.5 H, RDW Differential 48.7 H, Plt Count 324, MPV 9.7, Immature Gran % (Auto) 0.400, Neut % (Auto) 58.4, Lymph % (Auto) 20.9, [place] % (Auto) 13.7 H, Eos % (Auto) 6.1 H, Baso % (Auto) 0.5, Absolute Neuts (auto) 4.5, Absolute Lymphs (auto) 1.62, Total Counted Not Reportable 09/27/17 05:16: PT 15.1 H, INR 1.2 09/27/17 05:16: Sodium 139, Potassium 4.2, Chloride 100, Carbon Dioxide 32.0, Anion Gap 7, BUN 21 H, Creatinine 0.98, Estim Creat Clear Calc 37.03, Est GFR (MDRD) Af Amer 70, Est GFR (MDRD) Non-Af 58 L, BUN/Creatinine Ratio 21.3 H, Glucose 166 H, Calcium 8.4 L, Lactate Dehydrogenase 196, Total Protein 6.3 L, Globulin 3.9, Albumin/Globulin Ratio 0.6 L 09/27/17 07:01: POC Glucose 205 H 09/27/17 11:52: POC Glucose 179 H Current Medications Amiodarone HCl (Cordarone) 400 mg PO DAILY [facility] Last Admin: 09/27/17 10:10 Dose: 400 mg Carvedilol (Coreg) 3.125 mg PO BID [facility] Last Admin: 09/27/17 10:10 Dose: 3.125 mg Dextrose (D50w Syringe) 0 gm IV X1 PRN; Protocol PRN Reason: Hypoglycemia Furosemide (Lasix) 20 mg PO BIDLX [facility] Last Admin: 09/27/17 10:10 Dose: 20 mg Glucagon () 1 mg IM .X1 PRN PRN Reason: Hypoglycemia Insulin Human Lispro (Humalog Kwikpen (Bkc)) 0 unit SQ ACHS [facility] PRN Reason: Protocol Last Admin: 09/27/17 10:09 Dose: Not Given Levothyroxine Sodium (Synthroid) 50 mcg PO DAILY@0600 [facility] Last Admin: 09/27/17 06:01 Dose: 50 mcg Levothyroxine Sodium (Synthroid) 12.5 mcg PO DAILY@0600 [facility] Last Admin: 09/27/17 06:01 Dose: 12.5 mcg Magnesium Hydroxide (Milk Of Magnesia) 30 ml PO DAILY PRN PRN PRN Reason: Constipation Sodium Chloride () 5 - 30 ml IV UD PRN PRN Reason: SALINE FLUSH Last Admin: 09/27/17 06:01 Dose: 10 ml Medical Necessity - Tobacco Use Smoking Status: Never smoker Assessment/Plan All Active Problems (Last Reviewed 09/08/17 @ 16:11 by Camille Escalante) DKA (diabetic ketoacidoses) (Resolved) Periorbital cellulitis of left eye (Resolved) 82 y/o female presenting with a complaint of left eye periorbital swelling and found to have hypoxia with ambulation. CXR showed right sided pleural effusion. 1. Right Pleural effusion stable. eliquis remains on hold. titrate oxygen by nasal canula to maintain saturation to >92% pulmonology on board for US guided thoracocentesis: Ultrasound is double booked today and so will not be able to do ultrasound-guided thoracocentesis today. Will have it tomorrow morning. will check for pleural fluid LDH, cell count and cytology, etc will keep NPO past midnight for procedure 2. Acute hypoxic respiratory failure due to pleural effusion saturating well on 2L of oxygen by nasal canula for thoracocentesis tomorrow pulmonology on board 3. RIght periorbital swelling Resolved. Appears to be residual effect of the orbital cellulitis of the right eye that she had in June. will monitor 4. Hypothyroidism poorly controlled. TSH is 12.2 Now on Synthroid 67.5 mcg daily will monitor. Up with PCP upon discharge. 5. HFpEF stable on lasix 20mg bid and Coreg. Will monitor 6. Type 1 diabetes mellitus: Accu-Cheks before meals at bedtime. On insulin pump. 7. Paroxysmal Afib: Rate controlled. Eliquis on hold 8. Hyperlipidemia: Statin. 9. History of DVT: Had DVT in ~ May 2017. Eliquis on hold o/a of need for thoracocentesis DVT prophylaxis: SCDs Code Visit Inpatient E&M: 34684 Subs Hosp L3
--- NOTE | 2017-09-27 13:05 | PN_ITS ---
Subjective: Seen and examined. She has no complaints and feels very well. Is on 2 L of oxygen and feels very well. She denies any shortness of breath, any cough or chest pain, any abdominal pain, any diarrhea vomiting. She is happy that the edema of her lower extremities has also resolved. Review of systems otherwise negative. Vitals/I&O's: Vital Signs Temp Pulse Resp BP Pulse Ox 97.9 F 59 L 17 145/71 H 96 09/27/17 10:00 09/27/17 11:17 09/27/17 10:00 09/27/17 10:00 09/27/17 10:00 Oxygen Flow Rate (L/min) 2 Oxygen Delivery Method Nasal Cannula Weight: 114 lb 13.773 oz Body Mass Index (BMI) 20.3 Intake and Output for Last 24 Hours 09/25/17 09/26/17 09/27/17 23:59 23:59 23:59 Intake Total 120 / 120 800 / 800 120 / 120 Output Total 1000 / 1000 325 / 325 Balance 120 / 120 -200 / -200 -205 / -205 General: Alert, Oriented x3, Cooperative, No apparent distress HEENT: Atraumatic, PERRLA, EOMI, Normocephalic Oral: Moist Mucosa Neck: Supple, No JVD, Negative Carotid Bruits Lungs: - - Markedly decreased breath sounds in right mid and lower lung bernard with decreased tactile and vocal fremitus. Cardiovascular: Regular rate, Regular Rhythm, Normal S1, Normal S2, No murmurs Abdomen: Bowel Sounds Present, Soft, Non Tender, Non-Distended, No Hepato- splenomegaly Extremities: No clubbing, No cyanosis, Capillary Refill Less than 3 Seconds, - - Minimal edema of both lower extremities. Skin: No rashes, No breakdown Musculoskeletal: No Tenderness to Palpation of Joints or Extremities Lymphatic: No Cervical, Supraclavicular, or Inguinal Adenopathy Neurological: Cranial nerves II-XII grossly intact Psych/Mental Status: Normal Affect, Appropriate, Alert and oriented to time, place, person, mood and affect Laboratory Results 09/26/17 17:59: POC Glucose 227 H 09/26/17 21:50: POC Glucose 226 H 09/27/17 05:16: WBC 7.8, RBC 3.36 L, Hgb 9.6 L, Hct 29.7 L, MCV 88.4, MCH 28.6, MCHC 32.3, RDW 15.5 H, RDW Differential 48.7 H, Plt Count 324, MPV 9.7, Immature Gran % (Auto) 0.400, Neut % (Auto) 58.4, Lymph % (Auto) 20.9, [place] % ( Auto) 13.7 H, Eos % (Auto) 6.1 H, Baso % (Auto) 0.5, Absolute Neuts (auto) 4.5, Absolute Lymphs (auto) 1.62, Total Counted Not Reportable 09/27/17 05:16: PT 15.1 H, INR 1.2 09/27/17 05:16: Sodium 139, Potassium 4.2, Chloride 100, Carbon Dioxide 32.0, Anion Gap 7, BUN 21 H, Creatinine 0.98, Estim Creat Clear Calc 37.03, Est GFR ( MDRD) Af Amer 70, Est GFR (MDRD) Non-Af 58 L, BUN/Creatinine Ratio 21.3 H, Glucose 166 H, Calcium 8.4 L, Lactate Dehydrogenase 196, Total Protein 6.3 L, Globulin 3.9, Albumin/Globulin Ratio 0.6 L 09/27/17 07:01: POC Glucose 205 H 09/27/17 11:52: POC Glucose 179 H Current Medications Amiodarone HCl (Cordarone) 400 mg PO DAILY [facility] Last Admin: 09/27/17 10:10 Dose: 400 mg Carvedilol (Coreg) 3.125 mg PO BID [facility] Last Admin: 09/27/17 10:10 Dose: 3.125 mg Dextrose (D50w Syringe) 0 gm IV X1 PRN; Protocol PRN Reason: Hypoglycemia Furosemide (Lasix) 20 mg PO BIDLX [facility] Last Admin: 09/27/17 10:10 Dose: 20 mg Glucagon () 1 mg IM .X1 PRN PRN Reason: Hypoglycemia Insulin Human Lispro (Humalog Kwikpen (Bkc)) 0 unit SQ ACHS [facility] PRN Reason: Protocol Last Admin: 09/27/17 10:09 Dose: Not Given Levothyroxine Sodium (Synthroid) 50 mcg PO DAILY@0600 [facility] Last Admin: 09/27/17 06:01 Dose: 50 mcg Levothyroxine Sodium (Synthroid) 12.5 mcg PO DAILY@0600 [facility] Last Admin: 09/27/17 06:01 Dose: 12.5 mcg Magnesium Hydroxide (Milk Of Magnesia) 30 ml PO DAILY PRN PRN PRN Reason: Constipation Sodium Chloride () 5 - 30 ml IV UD PRN PRN Reason: SALINE FLUSH Last Admin: 09/27/17 06:01 Dose: 10 ml Medical Necessity - Tobacco Use Smoking Status: Never smoker Assessment/Plan All Active Problems (Last Reviewed 09/08/17 @ 16:11 by Camille Escalante) DKA (diabetic ketoacidoses) (Resolved) Periorbital cellulitis of left eye (Resolved) 82 y/o female presenting with a complaint of left eye periorbital swelling and found to have hypoxia with ambulation. CXR showed right sided pleural effusion. 1. Right Pleural effusion * stable. * eliquis remains on hold. * titrate oxygen by nasal canula to maintain saturation to >92% * pulmonology on board * for US guided thoracocentesis: Ultrasound is double booked today and so will not be able to do ultrasound-guided thoracocentesis today. Will have it tomorrow morning. * will check for pleural fluid LDH, cell count and cytology, etc * will keep NPO past midnight for procedure * 2. Acute hypoxic respiratory failure due to pleural effusion * saturating well on 2L of oxygen by nasal canula * for thoracocentesis tomorrow * pulmonology on board * 3. RIght periorbital swelling * Resolved. Appears to be residual effect of the orbital cellulitis of the right eye that she had in June. * will monitor * 4. Hypothyroidism * poorly controlled. TSH is 12.2 * Now on Synthroid 67.5 mcg daily * will monitor. Up with PCP upon discharge. 5. HFpEF * stable * on lasix 20mg bid and Coreg. Will monitor * 6. Type 1 diabetes mellitus: Accu-Cheks before meals at bedtime. On insulin pump. 7. Paroxysmal Afib: Rate controlled. Eliquis on hold 8. Hyperlipidemia: Statin. 9. History of DVT: Had DVT in ~ May 2017. Eliquis on hold o/a of need for thoracocentesis DVT prophylaxis: SCDs Code Visit Inpatient E&M: 67688 Subs Hosp L3
--- NOTE | 2017-09-27 13:07 | CASEMGMT ---
See RN CM Assessment Link. DC Plan: home on dc. Will follow for Home oxygen if needed. Per pt and daughter, she is independent, no DME, family drives. Lawson OCHOAN RN ACM
[2017-09-27 16:50] LABS: Bedside Glucose 239 mg/dL (70-110)
[2017-09-27 21:56] LABS: Bedside Glucose 211 mg/dL (70-110)
[2017-09-28] VITALS (13 sets, daily range): BP systolic 138–151; BP diastolic 50–78; PULSE 57–67; RESP 16–18; TEMP 36.9–37; O2SAT 88–98
--- NOTE | 2017-09-28 | FLU_PTH ---
PATIENT: FORD GREENWOOD LOC: PCU U#:[id number] AGE/SX: 82/F ROOM: [facility] RE09/25/[address]: Dr. Aracelis Keene MD : [id number] BED: 1 DIS: 09/28/2017 SPEC #: [id number] RECD: 09/28/17 11:31 STATUS: ABUNDIO TYRONE #: [id number] THOM: 09/28/17 00:[address]: Aracelis Keene DEPT: CYTOLOGY RECD BY: Nafisa Saldaña ENTERED: 09/28/17 11:32 SP TYPE: Fluid OTHR DR: DO Dr. Elvis Moran MD Tissues: THORACIC FLUID Procedures: Special Stain Group II Surgery Specimen Level IV Cytospin Fluid HEADER OPERATION: Ultrasound guided right thoracentesis PRE-OP DIAGNOSIS: Pleural effusion TISSUE SUBMITTED: Thoracentesis fluid for cytology DIAGNOSIS CYTOLOGY Thoracentesis fluid for cytology (cytospin and cell block): Negative for malignant cells. See cytology study and comment. SJ:rg 09/29/17 COMMENT Clinical correlation and appropriate follow up are necessary. CYTOLOGY STUDY Slides are reviewed. The specimen consists of macrophages, mesothelial cells and inflammatory cells. CYTOLOGY GROSS Received is 100 ml of yellow hazy fluid labeled with the patient's name and and designated per the requisition as thoracentesis. Submitted for cytology preparation including cell block. / CC:cc 09/28/17 TC:5 CPT: 43244, 79234
[2017-09-28 06:09] LABS: International Normalized Ratio 1.2; Prothrombin Time (Protime)PT. 14.9 SECONDS (11.7-14.9)
[2017-09-28 06:10] LABS: Partial Thromboplast Time 28.1 Seconds (24.1-36.2)
[2017-09-28 07:01] LABS: Bedside Glucose 254 mg/dL (70-110)
[2017-09-28 07:48] LABS: Absolute Lymphocyte Count 1.72 X10^3/ul (0.83-4.51); Absolute Neutrophil Count 5.5 X10^3/uL (2.0-7.7); Basophil# 0.03 X10^3/uL; Basophil% 0.3 % (0-1); Eosinophil# 0.48 X10^3/uL; Eosinophils% 5.4 % (0-5); Hematocrit 28.8 % (37-47); Hemoglobin 9.3 g/dl (12.0-15.0); Lymphocyte # 1.72 X10^3/ul (4.0); Lymphocyte % 19.4 % (19-41); Mean Corp Hgb Conc 32.3 g/gl (32-36); Mean Corpuscular Hgb 28.9 pg (27.0-32.0); Mean Corpuscular Volume 89.4 fL (81-99); Mean Platelet Vol. 10.1 fl (6.2-12.0); Monocyte# 1.11 X10^3/uL; Monocyte% 12.5 % (0-10); Neutrophil # 5.49 X10^3/uL (2.7-7.7); Neutrophil % 62.1 % (47-70); POSITIVE COUNT NO; POSITIVE DIFFERENTIAL NO; POSITIVE MORPHOLOGY NO; Platelet Count 329 K/mm3 (150-450); RBC Distribution Width CV 15.5 % (11.6-14.6); RBC Distribution Width SD 49.2 fl (35.1-43.9); Red Blood Count 3.22 M/mm3 (4.2-5.4); White Blood Count 8.9 K/mm3 (4.4-11.0)
[2017-09-28 07:53] LABS: Anion Gap 9 (5-15); BUN 22 mg/dL (7-18); BUN/Creat Ratio 22.3 RATIO (10-20); Calcium,Total 8.5 mg/dL (8.5-10.1); Chloride 99 mmol/L (98-107); Creatinine, Serum 0.99 mg/dL (0.55-1.02); EST Glomerular Filtration Rate 57 mL/min (>60); Est Glom Filt Rate - Afr Amer 70 mL/min (>60); Estimated Creatinine Clearance 36.66 ml/min; Glucose 217 mg/dL (74-106); LDH 220 U/L (84-246); Potassium 4.7 mmol/L (3.5-5.1); Sodium Level 137 mmol/L (136-145)
--- NOTE | 2017-09-28 08:00 | US_ITS ---
PROCEDURE: ULTRASOUND GUIDED THORACENTESIS. DATE: September 28, 2017. INDICATION: Female, 82 years old. Right pleural effusion PHYSICIAN: Isra Claros M.D. PROCEDURE: The risks, benefits, and alternatives to the procedure were explained to the patient. The specific risks of bleeding, infection, and pneumothorax requiring chest tube insertion were discussed and accepted. Written informed consent was obtained. Ultrasonographic evaluation of the right lower pleural space was carried out. An adequate pocket was identified. The patient was placed in the sitting, upright position. The overlying skin was prepped and draped in sterile fashion. 1% lidocaine was administered subcutaneously for local anesthesia. Under ultrasound guidance, a 6 [place] thoracentesis needle/catheter system was advanced into the right posterior lower pleural fluid collection. Approximately 920 mL of petty-colored fluid was drained. The catheter was removed, and a sterile dressing was applied. A specimen was collected and sent to the laboratory for analysis, as requested by the referring clinician. The patient tolerated the procedure well. A chest x-ray was ordered. US/Thoracentesis W US IMPRESSION: Ultrasound-guided right thoracentesis. Electronically Signed: Isra Claros MD at 10:28 EDT Tel [phone], Service support ,
[2017-09-28] MEDS: Amiodarone 200 MG Tablet 400 MG PO (09:08)
[2017-09-28] MEDS: Furosemide 20 MG Tablet PO (09:08)
[2017-09-28] MEDS: Carvedilol 3.125 MG TABLET PO (09:08)
--- NOTE | 2017-09-28 09:55 | RAD_ITS ---
STUDY: X-RAY CHEST REASON FOR EXAM: Female, 82 years old. Status post right thoracentesis. TECHNIQUE: Portable upright inspiration expiration views. COMPARISON: Comparison is made with prior study dated September 25, 2017. FINDINGS: The patient is status post right thoracentesis. There is no evidence of pneumothorax. Small residual right pleural parenchymal changes. RAD/Chest Insp/Exp 2 View IMPRESSION: Status post right thoracentesis. No evidence of pneumothorax. Mild residual pleural-parenchymal changes at the right lung base. Electronically Signed: Isra Claros MD at 10:28 EDT Tel [phone], Service support ,
[2017-09-28 10:36] LABS: Body Fluid Mononuclear WBC # 0.114 10^3/uL; Body Fluid Mononuclear WBC % 83.2 %; Body Fluid Polynuclear WBC # 0.023 10^3/uL; Body Fluid Polynuclear WBC % 16.8 %; Body Fluid Total Cells Counted 0.165 10^3/ul (0.000-0.000); White Blood Count/Body Fluid 0.137 10^3/uL
[2017-09-28 10:43] LABS: Auto B Fluid Analyzer BKGD Ct COUNTS W/IN LIMITS (W/IN LIMITS); Red Cell Count/Body Fluid 5 /mm3
[2017-09-28 10:44] LABS: Appearance/Body Fluid CLEAR; Color/Body Fluid YELLOW; Source- Body Fluid THORACENTESIS
[2017-09-28 11:00] LABS: Lymphocytes 27 %; Macrophages 42 %; Monocytes 12 %; Neutrophil (Segs) 19 %
[2017-09-28 11:02] LABS: Body Fluid QC Type(s) BF1Q,BF2Q
[2017-09-28 11:15] LABS: Glucose, Body Fluid 231 mg/dL (40-70); LDH,Body Fluid 72 Units/l (Not Establ.); Protein, Body Fluid 2.9 g/dL (Not Establ.)
--- NOTE | 2017-09-28 11:22 | PCM.DC ---
You will use the following diet at home:: No restrictions Discharge Activity: Return to Normal Activity Call your doctor if you observe: Shortness of breath, Dizziness, Fainting spells, Chest pain Instructions: Discharge Instructions for Thoracentesis Allergies/Adverse Reactions: Allergies No Known Allergies Allergy (Verified 09/25/17 10:55) Medications to take at Discharge apixaban 2.5 mg tablet 2.5 mg PO BID 07/22/17 Amiodarone HCl 400 mg PO DAILY 07/29/17 carvedilol 3.125 mg tablet 3.125 mg PO BID #180 tab 08/02/17 furosemide 40 mg tablet 20 mg PO BID 09/06/17 levothyroxine 50 mcg tablet 50 mcg PO QDAY #90 tab 09/06/17 aspirin 81 mg chewable tablet 81 mg PO QDAY 09/08/17 Insulin Lispro [Humalog] See Protocol SC CONT 09/25/17 Orders to be completed after discharge: Chest PA and Lateral [RAD] Time Frame: 1 Week, Location: None Selected Primary Care Physician: Elvis Russell MD [Primary Care Provider] - Please follow up with your Primary Care Physician in: 1 Week Test Results: Test results from this visit will be discussed in further detail at your follow-up appointment, if applicable. Please Follow Up With: Gurvinder Chicas MD When: 2 Weeks Proposed Discharge Date: 09/28/17
--- NOTE | 2017-09-28 11:27 | DCINST_ITS ---
You will use the following diet at home:: No restrictions Discharge Activity: Return to Normal Activity Call your doctor if you observe: Shortness of breath, Dizziness, Fainting spells , Chest pain Instructions: Discharge Instructions for Thoracentesis Allergies/Adverse Reactions: Allergies No Known Allergies Allergy (Verified 09/25/17 10:55) Medications to take at Discharge apixaban 2.5 mg tablet 2.5 mg PO BID 07/22/17 Amiodarone HCl 400 mg PO DAILY 07/29/17 carvedilol 3.125 mg tablet 3.125 mg PO BID #180 tab 08/02/17 furosemide 40 mg tablet 20 mg PO BID 09/06/17 levothyroxine 50 mcg tablet 50 mcg PO QDAY #90 tab 09/06/17 aspirin 81 mg chewable tablet 81 mg PO QDAY 09/08/17 Insulin Lispro [Humalog] See Protocol SC CONT 09/25/17 Orders to be completed after discharge: Chest PA and Lateral [RAD] Time Frame: 1 Week, Location: None Selected Primary Care Physician: Elvis Russell MD [Primary Care Provider] - Please follow up with your Primary Care Physician in: 1 Week Test Results: Test results from this visit will be discussed in further detail at your follow- up appointment, if applicable. Please Follow Up With: Gurvinder Chicas MD When: 2 Weeks Proposed Discharge Date: 09/28/17
--- NOTE | 2017-09-28 11:29 | PCM.DC.SUM ---
<Lucrecia Irving - Last Filed: 09/28/17 11:40> Discharge Date and Diagnosis Date of Admission: 09/25/17 Date of Discharge: 09/28/17 - Primary Discharge Diagnosis 1. Right pleural effusion 2. Acute hypoxia secondary to #1 3. Right periorbital swelling 4. 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 Appetite is fairly good. She reports no issues. Swelling inlegs sl improved. She has resumed her gardening and painting. Sleep is good. Denies any issues. Today her insulin pump is downlaoded. No extreme Bg readings. Bg 140-200 range overall. Hospital Course and Treatment Imaging Results: Diagnostic Data Brain CT 09/25/17 11:51 IMPRESSION: 1. No acute intracranial or calvarial abnormality or major interval change. 2. Decreasing left preseptal cellulitis with compared to prior exam. There is no evidence of orbital involvement. Electronically Signed: Alejandro Hall DO at 12:54 EDT Tel [phone], Service support , Thoracentesis Ultrasound 09/28/17 08:00 IMPRESSION: Ultrasound-guided right thoracentesis. Electronically Signed: Isra Claros MD at 10:28 EDT Tel [phone], Service support , Chest X-Ray 09/28/17 09:55 IMPRESSION: Status post right thoracentesis. No evidence of pneumothorax. Mild residual pleural-parenchymal changes at the right lung base. Electronically Signed: Isra Claros MD at 10:28 EDT Tel [phone], Service support , Dr. Gaxiola/Dr. Chicas- Pulmonary Medicine Operations: None Procedures: Thoracentesis Summary of Care Provided: Patient is an 82-year-old female admitted 09/25/2017 due to left eye swelling. She has a past medical history of paroxysmal atrial fibrillation, history of DVT, chronic diastolic CHF, type 1 diabetes mellitus, hyperlipidemia, mitral valve insufficiency, hypothyroidism. Patient found to have acute hypoxic respiratory insufficiency secondary to moderate right pleural effusion. She underwent right thoracentesis 09/28/17 with removal of 920 mL petty colored fluid. No further complications. Chest x-ray following procedure showed no evidence of pneumothorax. Pleural fluid sent for cultures and cytology. Patient denies further shortness of breath. She does require supplemental oxygen with ambulation. She is ambulatory in the home. She will require 2 L nasal cannula supplemental oxygen at discharge with ambulation. She will repeat chest x-ray in 1 week and follow-up with pulmonary medicine in 2 weeks. Right periorbital swelling resolved. Suspect residual effect of orbital cellulitis which patient underwent treatment for in June. Patient's TSH 12.2. Recommend further evaluation by primary care physician. Other chronic medical conditions as noted above are stable at this time. Patient can continue Eliquis at discharge. General: Alert, Oriented x3, Cooperative, No apparent distress HEENT: Atraumatic, PERRLA, EOMI, Normocephalic Oral: Moist Mucosa Neck: Supple, No JVD, Negative Carotid Bruits Lungs: Clear to auscultation, diminished Cardiovascular: Regular rate, Regular Rhythm, Normal S1, Normal S2, No murmurs Abdomen: Bowel Sounds Present, Soft, Non Tender, Non-Distended, No Hepato-splenomegaly Extremities: No clubbing, No cyanosis, Capillary Refill Less than 3 Seconds, no edema Skin: No rashes, No breakdown Musculoskeletal: No Tenderness to Palpation of Joints or Extremities Lymphatic: No Cervical, Supraclavicular, or Inguinal Adenopathy Neurological: Cranial nerves II-XII grossly intact Psych/Mental Status: Normal Affect, Appropriate Patient seen exam prior to discharge. Physical assessment as noted above. Patient stable for discharge home with the follow-up her conditions as noted above. This patient was seen by EDWINA Trejo under the supervision of Dr. Keene. Discharge Diet: No Restrictions Discharge Activity: Return to Normal Activity Call your doctor if you observe: Shortness of breath, Dizziness, Fainting spells, Chest pain Home Medications: Medications to take at Discharge apixaban 2.5 mg tablet 2.5 mg PO BID 07/22/17 Amiodarone HCl 400 mg PO DAILY 07/29/17 carvedilol 3.125 mg tablet 3.125 mg PO BID #180 tab 08/02/17 furosemide 40 mg tablet 20 mg PO BID 09/06/17 levothyroxine 50 mcg tablet 50 mcg PO QDAY #90 tab 09/06/17 aspirin 81 mg chewable tablet 81 mg PO QDAY 09/08/17 Insulin Lispro [Humalog] See Protocol SC CONT 09/25/17 Other Amb Orders: Chest PA and Lateral [RAD] Time Frame: 1 Week, Location: None Selected Primary Care Physician: Elvis Russell MD [Primary Care Provider] - Please follow up with your Primary Care Physician in: 1 Week Please Follow Up With: Gurvinder Chicas MD When: 2 Weeks Patient Instructions: Discharge Instructions for Thoracentesis Disposition: Home Minutes spent on discharge:: 35 Patient Condition:: Stable Medical Necessity - Tobacco Use Smoking Status: Never smoker Meaningful Use Info Meaningful Use Diagnoses (Choose all that apply): None applicable <Aracelis Keene - Last Filed: 09/28/17 12:45> Discharge Date and Diagnosis - Primary Discharge Diagnosis Active and Suspected Problems (Last Updated 09/28/17 @ 11:48 by Nilda Dominguez NP-C) Pleural effusion (Acute) - Secondary Discharge Diagnosis Chronic Problems (Last Updated 09/28/17 @ 11:48 by EDWINA Gleason) Secondary pulmonary arterial hypertension (Chronic) Nonrheumatic mitral (valve) insufficiency (Chronic) longterm current use of amiodarone (Chronic) Paroxysmal atrial fibrillation (Chronic) DVT (deep venous thrombosis) (Chronic) Right-sided heart failure (Chronic) Hyperlipidemia due to type 1 diabetes mellitus (Chronic) Uncontrolled type 1 diabetes mellitus with complication, without long-term current use of insulin (Chronic) Doing fairly well. Appetite is fairly good. She reports no issues. Swelling inlegs sl improved. She has resumed her gardening and painting. Sleep is good. Denies any issues. Today her insulin pump is downlaoded. No extreme Bg readings. Bg 140-200 range overall. Hospital Course and Treatment Imaging Results: 09/28/17 08:00 Thoracentesis W US [US] Routine 09/28/17 09:55 Chest Insp/Exp 2 View [RAD] Urgent Summary of Care Provided: Patient seen by Lucrecia Irving nurse practitioner under my supervision. The patient is a 82 year old F with past medical history as listed above. She was admitted with a complaint of left periorbital swelling. Whilst on admission her daughter complaint of shortness of breath and patient was noted to desaturate to 85% when going to the bathroom. Chest x-ray done showed right-sided pleural effusion. She was admitted and Eliquis holding the patient for ultrasound-guided thoracocentesis. Pulmonology was consulted. She had ultrasound-guided thoracocentesis on 09/28/2017 with removal of 920 mils of petty colored fluid. Light-colored criteria indicated that it was likely transudate. Pleural fluid sent for cultures and cytology. Chest x-ray done of the procedure was normal and showed no complications. Patient's saturation on ambulation after the procedure showed saturation of 88% on room air. She therefore met criteria for supplemental oxygen and was discharged home on 2 L of supplemental nasal oxygen to use as needed as needed with ambulation. Right orbital swelling had resolved and patient had been managed for orbital cellulitis in June for which she was seen at [facility] and she was told that was a fungal infection. Patient's TSH was noted to be 12.2 on admission and her home dose of levothyroxine 50 mcg was increased to 67.5 mcg. She is to follow-up with a PCP for further adjustment as needed. Patient's Eliquis was held during admission on account of ultrasound-guided thoracocentesis. 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 Patient seen and examined prior to discharge. She had no complaints and felt well. She was seen for ultrasound-guided thoracocentesis was done. She had no complaints and denied fever or chills, cough or chest pain, shortness of breath, abdominal pain or diarrhea vomiting. Review of systems otherwise negative. o/e: General: Alert, Oriented x3, Cooperative, No apparent distress HEENT: Atraumatic, PERRLA, EOMI, Normocephalic Oral: Moist Mucosa Neck: Supple, No JVD, Negative Carotid Bruits Lungs: decreased breath sounds in right mid and lower lung bernard, with decreased vocal and tactile fremitus Cardiovascular: Regular rate, Regular Rhythm, Normal S1, Normal S2, No murmurs Abdomen: Bowel Sounds Present, Soft, Non Tender, Non-Distended, No Hepato-splenomegaly Extremities: No clubbing, No cyanosis, Capillary Refill Less than 3 Seconds, no edema Skin: No rashes, No breakdown Musculoskeletal: No Tenderness to Palpation of Joints or Extremities Lymphatic: No Cervical, Supraclavicular, or Inguinal Adenopathy Neurological: Cranial nerves II-XII grossly intact Psych/Mental Status: Normal Affect, Appropriate Plan as stated above. Agree with note and assessment and plan by Lucrecia BLAND's note. [] Code Visit Inpatient E&M: 01486 Disch Hosp
--- NOTE | 2017-09-28 11:40 | DS.PCM_ITS ---
<Lucrecia Irving - Last Filed: 09/28/17 11:40> Discharge Date and Diagnosis Date of Admission: 09/25/17 Date of Discharge: 09/28/17 - Primary Discharge Diagnosis 1. Right pleural effusion 2. Acute hypoxia secondary to #1 3. Right periorbital swelling 4. 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 Appetite is fairly good. She reports no issues. Swelling inlegs sl improved. She has resumed her gardening and painting. Sleep is good. Denies any issues. Today her insulin pump is downlaoded. No extreme Bg readings. Bg 140-200 range overall. Hospital Course and Treatment Imaging Results: Diagnostic Data Brain CT 09/25/17 11:51 IMPRESSION: 1. No acute intracranial or calvarial abnormality or major interval change. 2. Decreasing left preseptal cellulitis with compared to prior exam. There is no evidence of orbital involvement. Electronically Signed: Alejandro Hall DO at 12:54 EDT Tel [phone], Service support , Thoracentesis Ultrasound 09/28/17 08:00 IMPRESSION: Ultrasound-guided right thoracentesis. Electronically Signed: Isra Claros MD at 10:28 EDT Tel [phone], Service support , Chest X-Ray 09/28/17 09:55 IMPRESSION: Status post right thoracentesis. No evidence of pneumothorax. Mild residual pleural-parenchymal changes at the right lung base. Electronically Signed: Isra Claros MD at 10:28 EDT Tel [phone], Service support , Dr. Gaxiola/Dr. Chicas- Pulmonary Medicine Operations: None Procedures: Thoracentesis Summary of Care Provided: Patient is an 82-year-old female admitted 09/25/2017 due to left eye swelling. She has a past medical history of paroxysmal atrial fibrillation, history of DVT , chronic diastolic CHF, type 1 diabetes mellitus, hyperlipidemia, mitral valve insufficiency, hypothyroidism. Patient found to have acute hypoxic respiratory insufficiency secondary to moderate right pleural effusion. She underwent right thoracentesis 09/28/17 with removal of 920 mL petty colored fluid. No further complications. Chest x-ray following procedure showed no evidence of pneumothorax. Pleural fluid sent for cultures and cytology. Patient denies further shortness of breath. She does require supplemental oxygen with ambulation. She is ambulatory in the home. She will require 2 L nasal cannula supplemental oxygen at discharge with ambulation. She will repeat chest x-ray in 1 week and follow-up with pulmonary medicine in 2 weeks. Right periorbital swelling resolved. Suspect residual effect of orbital cellulitis which patient underwent treatment for in June. Patient's TSH 12.2. Recommend further evaluation by primary care physician. Other chronic medical conditions as noted above are stable at this time. Patient can continue Eliquis at discharge. General: Alert, Oriented x3, Cooperative, No apparent distress HEENT: Atraumatic, PERRLA, EOMI, Normocephalic Oral: Moist Mucosa Neck: Supple, No JVD, Negative Carotid Bruits Lungs: Clear to auscultation, diminished Cardiovascular: Regular rate, Regular Rhythm, Normal S1, Normal S2, No murmurs Abdomen: Bowel Sounds Present, Soft, Non Tender, Non-Distended, No Hepato- splenomegaly Extremities: No clubbing, No cyanosis, Capillary Refill Less than 3 Seconds, no edema Skin: No rashes, No breakdown Musculoskeletal: No Tenderness to Palpation of Joints or Extremities Lymphatic: No Cervical, Supraclavicular, or Inguinal Adenopathy Neurological: Cranial nerves II-XII grossly intact Psych/Mental Status: Normal Affect, Appropriate Patient seen exam prior to discharge. Physical assessment as noted above. Patient stable for discharge home with the follow-up her conditions as noted above. This patient was seen by EDWINA Trejo under the supervision of Dr. Keene. Discharge Diet: No Restrictions Discharge Activity: Return to Normal Activity Call your doctor if you observe: Shortness of breath, Dizziness, Fainting spells , Chest pain Home Medications: Medications to take at Discharge apixaban 2.5 mg tablet 2.5 mg PO BID 07/22/17 Amiodarone HCl 400 mg PO DAILY 07/29/17 carvedilol 3.125 mg tablet 3.125 mg PO BID #180 tab 08/02/17 furosemide 40 mg tablet 20 mg PO BID 09/06/17 levothyroxine 50 mcg tablet 50 mcg PO QDAY #90 tab 09/06/17 aspirin 81 mg chewable tablet 81 mg PO QDAY 09/08/17 Insulin Lispro [Humalog] See Protocol SC CONT 09/25/17 Other Amb Orders: Chest PA and Lateral [RAD] Time Frame: 1 Week, Location: None Selected Primary Care Physician: Elvis Russell MD [Primary Care Provider] - Please follow up with your Primary Care Physician in: 1 Week Please Follow Up With: Gurvinder Chicas MD When: 2 Weeks Patient Instructions: Discharge Instructions for Thoracentesis Disposition: Home Minutes spent on discharge:: 35 Patient Condition:: Stable Medical Necessity - Tobacco Use Smoking Status: Never smoker Meaningful Use Info Meaningful Use Diagnoses (Choose all that apply): None applicable <Aracelis Keene - Last Filed: 09/28/17 12:45> Discharge Date and Diagnosis - Primary Discharge Diagnosis Active and Suspected Problems (Last Updated 09/28/17 @ 11:48 by Nilda Dominguez NP-C) Pleural effusion (Acute) - Secondary Discharge Diagnosis Chronic Problems (Last Updated 09/28/17 @ 11:48 by EDWINA Gleason) Secondary pulmonary arterial hypertension (Chronic) Nonrheumatic mitral (valve) insufficiency (Chronic) 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 Appetite is fairly good. She reports no issues. Swelling inlegs sl improved. She has resumed her gardening and painting. Sleep is good. Denies any issues. Today her insulin pump is downlaoded. No extreme Bg readings. Bg 140-200 range overall. Hospital Course and Treatment Imaging Results: 09/28/17 08:00 Thoracentesis W US [US] Routine 09/28/17 09:55 Chest Insp/Exp 2 View [RAD] Urgent Summary of Care Provided: Patient seen by Lucrecia Irving nurse practitioner under my supervision. The patient is a 82 year old F with past medical history as listed above. She was admitted with a complaint of left periorbital swelling. Whilst on admission her daughter complaint of shortness of breath and patient was noted to desaturate to 85% when going to the bathroom. Chest x-ray done showed right- sided pleural effusion. She was admitted and Eliquis holding the patient for ultrasound-guided thoracocentesis. Pulmonology was consulted. She had ultrasound-guided thoracocentesis on 09/28/2017 with removal of 920 mils of petty colored fluid. Light-colored criteria indicated that it was likely transudate. Pleural fluid sent for cultures and cytology. Chest x-ray done of the procedure was normal and showed no complications. Patient's saturation on ambulation after the procedure showed saturation of 88% on room air. She therefore met criteria for supplemental oxygen and was discharged home on 2 L of supplemental nasal oxygen to use as needed as needed with ambulation. Right orbital swelling had resolved and patient had been managed for orbital cellulitis in June for which she was seen at [facility] and she was told that was a fungal infection. Patient's TSH was noted to be 12.2 on admission and her home dose of levothyroxine 50 mcg was increased to 67.5 mcg. She is to follow-up with a PCP for further adjustment as needed. Patient's Eliquis was held during admission on account of ultrasound-guided thoracocentesis. 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 Patient seen and examined prior to discharge. She had no complaints and felt well. She was seen for ultrasound-guided thoracocentesis was done. She had no complaints and denied fever or chills, cough or chest pain, shortness of breath , abdominal pain or diarrhea vomiting. Review of systems otherwise negative. o/e: General: Alert, Oriented x3, Cooperative, No apparent distress HEENT: Atraumatic, PERRLA, EOMI, Normocephalic Oral: Moist Mucosa Neck: Supple, No JVD, Negative Carotid Bruits Lungs: decreased breath sounds in right mid and lower lung bernard, with decreased vocal and tactile fremitus Cardiovascular: Regular rate, Regular Rhythm, Normal S1, Normal S2, No murmurs Abdomen: Bowel Sounds Present, Soft, Non Tender, Non-Distended, No Hepato- splenomegaly Extremities: No clubbing, No cyanosis, Capillary Refill Less than 3 Seconds, no edema Skin: No rashes, No breakdown Musculoskeletal: No Tenderness to Palpation of Joints or Extremities Lymphatic: No Cervical, Supraclavicular, or Inguinal Adenopathy Neurological: Cranial nerves II-XII grossly intact Psych/Mental Status: Normal Affect, Appropriate Plan as stated above. Agree with note and assessment and plan by Lucrecia BLAND's note. [] Code Visit Inpatient E&M: 00433 Disch Hosp
--- NOTE | 2017-09-28 11:44 | PN_ITS ---
Patient Problems: Active and Suspected Problems (Last Reviewed 09/08/17 @ 16:11 by Camille Escalante ) Pleural effusion (Acute) Subjective: Patient was seen and examined. She is sitting up in bed in no acute distress, eating her lunch. Denies any shortness of breath. She is able to take a deeper breath in. Denies any chest pain, cough or sputum production. Objective: Recent lab and culture data reviewed. Remains afebrile and hemodynamically stable. Pleural fluid results are partially returned, appears to be transudative pending final results. - Physical Exam General: Alert, Oriented x3, Cooperative, No apparent distress, - - No conversational dyspnea HEENT: Atraumatic, Normocephalic Oral: Moist Mucosa, No Gingival or Mucosal Lesions/ Ulcerations Neck: Supple, Trachea Midline Lungs: No rhonchi, No wheeze, No rales, Diminished Cardiovascular: Regular rate, Regular Rhythm, Normal S1, Normal S2, No murmurs, No rub noted, No Gallop Abdomen: Bowel Sounds Present, Soft, Non Tender, Non-Distended Extremities: No cyanosis, No edema Skin: - - Puncture site from thoracentesis dry and intact Musculoskeletal: No Tenderness to Palpation of Joints or Extremities Lymphatic: No Cervical, Supraclavicular, or Inguinal Adenopathy Neurological: Neuro grossly intact Psych/Mental Status: Alert and oriented to time, place, person, mood and affect Vital Signs Temp Pulse Resp BP Pulse Ox 98.4 F 61 18 148/68 H 98 09/28/17 10:14 09/28/17 10:25 09/28/17 10:25 09/28/17 10:25 09/28/17 10:25 Oxygen Flow Rate (L/min) 2 Oxygen Delivery Method Nasal Cannula Weight: 114 lb 13.773 oz Body Mass Index (BMI) 20.3 Intake and Output for Last 24 Hours 09/26/17 09/27/17 09/28/17 23:59 23:59 23:59 Intake Total 800 / 800 520 / 520 120 / 120 Output Total 1000 / 1000 1450 / 1450 650 / 650 Balance -200 / -200 -930 / -930 -530 / -530 Laboratory Tests Past 24 Hrs 09/27/17 09/27/17 09/28/17 09:45 09:45 05:44 WBC RBC Hgb Hct MCV MCH MCHC RDW RDW Differential Plt Count MPV Immature Gran % (Auto) Neut % (Auto) Lymph % (Auto) [place] % (Auto) Eos % (Auto) Baso % (Auto) Absolute Neuts (auto) Absolute Lymphs (auto) Total Counted PT 14.9 INR 1.2 APTT 28.1 Sodium Potassium Chloride Carbon Dioxide Anion Gap BUN Creatinine Estim Creat Clear Calc Est GFR (MDRD) Af Amer Est GFR (MDRD) Non-Af BUN/Creatinine Ratio Glucose Calcium Lactate Dehydrogenase Fluid Source Fluid Color Fluid Appearance Fluid pH Pending Fluid WBC Fluid RBC Fluid Tot Cell Count Fld Polynuclear WBCs # Fld Polynuclear WBCs % Fluid Mononuclear WBCs Fld Mononuclear WBCs % Fluid Neutrophils Fluid Lymphocytes Fluid Monocytes Fluid Macrophages Fl Pathologist Comment Fluid Glucose 231 H Fluid Total Protein 2.9 Fluid LDH 72 Fluid Comment 2 09/28/17 09/28/17 09/28/17 05:44 05:44 09:45 WBC 8.9 RBC 3.22 L Hgb 9.3 L Hct 28.8 L MCV 89.4 MCH 28.9 MCHC 32.3 RDW 15.5 H RDW Differential 49.2 H Plt Count 329 MPV 10.1 Immature Gran % (Auto) 0.300 Neut % (Auto) 62.1 Lymph % (Auto) 19.4 [place] % (Auto) 12.5 H Eos % (Auto) 5.4 H Baso % (Auto) 0.3 Absolute Neuts (auto) 5.5 Absolute Lymphs (auto) 1.72 Total Counted Not Reportable PT INR APTT Sodium 137 Potassium 4.7 Chloride 99 Carbon Dioxide 29.0 Anion Gap 9 BUN 22 H Creatinine 0.99 Estim Creat Clear Calc 36.66 Est GFR (MDRD) Af Amer 70 Est GFR (MDRD) Non-Af 57 L BUN/Creatinine Ratio 22.3 H Glucose 217 H Calcium 8.5 Lactate Dehydrogenase 220 Fluid Source THORACENTESIS Fluid Color YELLOW Fluid Appearance CLEAR Fluid pH Fluid WBC 0.137 Fluid RBC 5 Fluid Tot Cell Count 0.165 H Fld Polynuclear WBCs # 0.023 Fld Polynuclear WBCs % 16.8 Fluid Mononuclear WBCs 0.114 Fld Mononuclear WBCs % 83.2 Fluid Neutrophils 19 Fluid Lymphocytes 27 Fluid Monocytes 12 Fluid Macrophages 42 Fl Pathologist Comment May follow Fluid Glucose Fluid Total Protein Fluid LDH Fluid Comment 2 SEE COMMENT POC Glucose 09/28/17 09/27/17 09/27/17 06:53 21:46 16:41 POC Glucose 254 H 211 H 239 H 09/27/17 11:52 POC Glucose 179 H Medical Necessity - Tobacco Use Smoking Status: Never smoker Assessment/Plan All Active Problems (Last Reviewed 09/08/17 @ 16:11 by Camille Escalante) Pleural effusion (Acute) DKA (diabetic ketoacidoses) (Resolved) Periorbital cellulitis of left eye (Resolved) RECOMMENDATIONS: 1. Okay to restart Eliquis 2. Await pleural fluid studies 3. Wean supplemental oxygen to maintain saturations at or above 90% 4. Encourage incentive spirometer use 5. Obtain walking oximetry prior to discharge 6. Follow-up in the pulmonary clinic within 2 weeks, patient should have a repeat chest x-ray prior to her appointment, this can be done on the same day. IMPRESSIONS: 1. Acute hypoxic respiratory insufficiency in the setting of a moderate right sided pleural effusion Continue to wean supplemental oxygen to maintain saturations at or above 90%. The patient's home Eliquis dose has been on hold now for 2 days. Recommend continuing to hold the aforementioned medication. Ultrasound-guided thoracentesis completed, awaiting final fluid analysis. Obtain ambulatory pulse ox, patient can be discharged home from a pulmonary perspective pending these results. Patient should follow-up in the office within 2 weeks and have a chest x-ray just prior to her appointment. 2. Hypothyroidism/heart failure with preserved ejection fraction/diabetes/ paroxysmal atrial fibrillation/hyperlipidemia/history of DVT Complicates care, management, recovery and prognosis. Continue home medications and okay to restart Eliquis today. This note was generated with [employer] dictation software. It may contain incorrect words, spelling, and punctuation that were not noted in checking the note before signing.
[2017-09-28 12:31] LABS: Bedside Glucose 222 mg/dL (70-110)
--- NOTE | 2017-09-28 13:58 | CASEMGMT ---
JULIO CESAR WALKER HOME O2 SET-UP NOTE: JULIO CESAR WALKER notified of Home O2 set-up needed. Insurance review for In-Network providers completed. Only availabe provider for [facility] is [facility]. Discussed home oxygen needs with patient. Pt is agreeable with [facility] as DME provider. Referral faxed to [facility] and they confirmed it was received. Javi GRACE RN CM
[2017-09-28 16:10] LABS: Pathologist Comment/Body Fluid Reviewed
--- NOTE | 2017-09-29 15:14 | CASEMGMT ---
JULIO CESAR WALKER DC phone call. Spoke with patient, reviewed medications (pt had question re: furosemide and lasix- JULIO CESAR WALKER let her know this was generic and trade name of same medicine). Pt is using her oxygen, daughter is able to assist. F/U appts will be made by daughter. No concerns at this time. Pt states is feeling better. No further questions. JULIO CESAR WALKER thanked her for using [facility]. Lawson GRACE RN ACM
[2017-09-30 14:41] LABS: pH, Body Fluid 11254 7.6 (Not Estab.)
== END 2017-09-28 16:32 | disposition home or self-care (01) | DRG 188 ==
LOC: ED 12:35 → PCU 16:02
PROVIDERS: Admitting Provider Student in an Organized Health Care Education/Training Program; Emergency Provider Emergency Medicine; Family Provider Family Medicine; PCP Family Medicine; Visit Provider Student in an Organized Health Care Education/Training Program
DX: J90 Pleural effusion, not elsewhere classified (principal); E03.9 Hypothyroidism, unspecified; I48.0 Paroxysmal atrial fibrillation; I27.21 Secondary pulmonary arterial hypertension; I34.0 Nonrheumatic mitral (valve) insufficiency; E78.5 Hyperlipidemia, unspecified; E10.9 Type 1 diabetes mellitus without complications; Z79.899 Other long term (current) drug therapy; Z86.718 Personal history of other venous thrombosis and embolism; Z87.891 Personal history of nicotine dependence; Z79.02 Long term (current) use of antithrombotics/antiplatelets; Z79.4 Long term (current) use of insulin; Z96.41 Presence of insulin pump (external) (internal); I50.810 Right heart failure, unspecified; H05.221 Edema of right orbit
CPT/HCPCS: 32555; 36415; 70450; 71046; 80048; 81001; 82945; 82962; 83615; 83880; 83986; 84156; 84157; 84443; 84484; 85025; 85027; 85610; 85730; 87070; 87075; 87205; 88108; 88305; 88313; 89050; 93005; 97802; 99283; A4216

== ENCOUNTER → 2017-10-14 14:15 | Outpatient (CLI) | payer MEDICARE, SELFPAY ==
--- NOTE | 2017-10-14 14:18 | RAD_ITS ---
STUDY: X-RAY CHEST REASON FOR EXAM: Female, 82 years old. Shortness of breath, history of pleural effusion TECHNIQUE: PA and lateral views of the chest. COMPARISON: 09/28/2017 FINDINGS: Left lung is hyperexpanded but free of a superimposed acute pulmonary process. There is a persistent right pleural effusion with associated atelectasis. Previously noted interstitial edema has resolved. Normal size heart. Normal mediastinum and jarrell. Normal visualized pulmonary arteries. There is atherosclerotic calcification of the aortic arch with tortuosity. There are diffuse degenerative changes of the visualized thoracic spine. There is degenerative osteoarthritis of the bilateral shoulders. There is no demonstrated abnormality of the visualized soft tissue structures of the upper abdomen. RAD/Chest PA and Lateral IMPRESSION: Stable right pleural effusion with likely associated atelectasis. Hyperexpanded left lung, no superimposed acute pulmonary process Resolution of previously noted interstitial edema Electronically Signed: Parmjit Andrea MD at 14:54 EDT , Service support ,
== END ==
PROVIDERS: Family Provider Family Medicine; PCP Family Medicine; Visit Provider Nurse Practitioner Family
DX: J90 Pleural effusion, not elsewhere classified (principal)
CPT/HCPCS: 71046

== ENCOUNTER → 2018-02-04 13:38 | Outpatient (CLI) | payer MEDICARE, SELFPAY | PROVIDERS: Family Provider Family Medicine; PCP Family Medicine; Visit Provider Nurse Practitioner Acute Care | DX: R09.02 Hypoxemia (principal) | CPT/HCPCS: 94762 ==

== ENCOUNTER 2018-02-13 19:52 | Observation (INO) | payer MEDICARE, SELFPAY ==
[2018-02-13] VITALS (9 sets, daily range): BP systolic 153–206; BP diastolic 55–98; PULSE 61–67; RESP 14–16; TEMP 35.1; O2SAT 94–96; BMI 18.5
[2018-02-13 20:06] LABS: Bedside Glucose 135 mg/dL (70-110)
--- NOTE | 2018-02-13 20:18 | CT_ITS ---
STUDY: CT BRAIN WITHOUT CONTRAST REASON FOR EXAM: Female, 82 years old. Confusion, hypertension RADIATION DOSAGE (If Supplied By Facility): CTDIvol = ( 47.74 ) mGy, DLP = ( 849.30 ) mGycm TECHNIQUE: Transaxial CT imaging of the brain was performed without administration of intravenous contrast material. Individualized dose optimization techniques were used for this CT. COMPARISON: 10/05/2017 FINDINGS: Normal soft tissue structures. Normal calvarium. There is mild cerebral atrophy with widening of the extra-axial spaces and ventricular dilatation. There are areas of decreased attenuation within the white matter tracts of the supratentorial brain, consistent with microvascular disease changes. There are small punctate calcifications of the basal ganglia which are seen in the aging brain as a normal variant. Normal brainstem. Normal cerebellum. There is no intracranial hemorrhage. There are no findings of an acute ischemic infarction. Normal visualized paranasal sinuses. CT/Brain/Head without Contrast IMPRESSION: Chronic involutional changes of the brain. No acute hemorrhage Electronically Signed: Parmjit Andrea MD at 21:29 EST , Service support ,
--- NOTE | 2018-02-13 20:18 | EKG12_ITS ---
Test Reason : NEURO S/SX Blood Pressure : / mmHG Vent. Rate : 065 BPM Atrial Rate : 065 BPM P-R Int : 276 ms QRS Dur : 098 ms QT Int : 448 ms P-R-T Axes : 077 039 075 degrees QTc Int : 465 ms Sinus rhythm with 1st degree A-V block ST & T wave abnormality, consider inferior ischemia Abnormal ECG Confirmed by EDWIN AGUILERA, BERTHA ([id number]), society editor POLA JAY ([id number]) on 02/15/2018 4:25:19 PM Referred By: JOON/MADELEINE Confirmed By:BERTHA PINEDA MD
--- NOTE | 2018-02-13 20:20 | RAD_ITS ---
STUDY: X-RAY CHEST REASON FOR EXAM: Female, 82 years old. Neurologic symptoms, possible CVA. TECHNIQUE: Single AP portable view of the chest. COMPARISON: Prior chest radiograph from October 14, 2017. FINDINGS: The lung bernard are generally well expanded to hyperexpanded. There is a right pleural effusion that has decreased substantially from October 14, 2017. Atelectatic changes in the right lower lobe. Otherwise stable chronic lung changes. Normal size heart. Normal mediastinum and jarrell. Normal visualized pulmonary arteries. There is atherosclerotic calcification of the aortic arch with tortuosity. Bilateral carotid artery calcifications are included in the [id number] There is demineralization of the osseous structures. There is degenerative osteoarthritis of the bilateral shoulders. There is no demonstrated abnormality of the visualized soft tissue structures of the upper abdomen. RAD/Chest 1 View IMPRESSION: Decreased right pleural effusion and atelectatic changes at the right lung base. Otherwise stable interstitial changes and mild hyperexpansion. Stable normal cardiac size without venous congestion. Atherosclerotic changes of the thoracic aorta and bilateral carotid artery calcifications. Electronically Signed: Katelynn Solomon MD at 21:09 EST , Service support ,
[2018-02-13 20:27] LABS: Absolute Lymphocyte Count 1.83 X10^3/ul (0.83-4.51); Absolute Neutrophil Count 4.7 X10^3/uL (2.0-7.7); Basophil# 0.03 X10^3/uL; Basophil% 0.4 % (0-1); Eosinophil# 0.09 X10^3/uL; Eosinophils% 1.2 % (0-5); Hematocrit 39.9 % (37-47); Hemoglobin 12.8 g/dl (12.0-15.0); Lymphocyte # 1.83 X10^3/ul (4.0); Lymphocyte % 24.7 % (19-41); Mean Corp Hgb Conc 32.1 g/gl (32-36); Mean Corpuscular Hgb 28.6 pg (27.0-32.0); Mean Corpuscular Volume 89.3 fL (81-99); Mean Platelet Vol. 10.1 fl (6.2-12.0); Monocyte# 0.72 X10^3/uL; Monocyte% 9.7 % (0-10); Neutrophil # 4.73 X10^3/uL (2.7-7.7); Neutrophil % 63.9 % (47-70); Platelet Count 326 K/mm3 (150-450); RBC Distribution Width SD 58.6 fl (35.1-43.9); Red Blood Count 4.47 M/mm3 (4.2-5.4); White Blood Count 7.4 K/mm3 (4.4-11.0)
[2018-02-13 20:28] LABS: POSITIVE COUNT NO; POSITIVE DIFFERENTIAL NO; POSITIVE MORPHOLOGY NO
[2018-02-13 20:40] LABS: Anion Gap 6 (5-15); BUN 27 mg/dL (7-18); BUN/Creat Ratio 23.1 RATIO (10-20); Calcium,Total 9.4 mg/dL (8.5-10.1); Chloride 99 mmol/L (98-107); Creatinine, Serum 1.17 mg/dL (0.55-1.02); EST Glomerular Filtration Rate 47 mL/min (>60); Est Glom Filt Rate - Afr Amer 57 mL/min (>60); Estimated Creatinine Clearance 29.11 ml/min; Glucose 140 mg/dL (74-106); Potassium 4.2 mmol/L (3.5-5.1); Sodium Level 135 mmol/L (136-145)
[2018-02-13 21:14] LABS: Prothrombin Time (Protime)PT. 13.5 SECONDS (11.7-14.9)
[2018-02-13] MEDS: 0.9% Normal Saline 1,000 ML 100 ML IV (21:14)
--- NOTE | 2018-02-13 22:30 | ED.VISSUMM ---
- ER Visit Summary Date of Service: 02/13/18 Chief Complaint: Confusion History of Present Illness: The patient is a 82 F brought in by EMS with confusion. Patient was last known well at 3:11 PM which was the time on the receipt when she checked out of the local grocery store. She went to her car but became confused. Son called her shortly after 4 PM. The patient reportedly dropped the phone and the son thought the call was dropped. The patient then called her son at 7 PM stating that she did not feel right. He asked where she was and she admitted she was still sitting in the parking lot at the grocery store. Past history significant for CHF, asthma, diabetes, hypertension, high cholesterol, DVT, aortic stenosis, and atrial fibrillation. Patient is currently on Eliquis. Patient denies any pain. She denies headache or vision change. She does not feel nauseated. Physical Examination: Blood pressure is 171/98, temperature 95.2, heart rate 67, respiratory rate 16, pulse ox 94% on room air. Patient is sitting upright in bed. She is distress. Head neck examination was no obvious external sign of trauma. Heart is regular rate and rhythm. Lung sounds are clear. Abdomen is soft and nontender. Neuro exam reveals an initial NIH score of 2. She receives one point for mild right facial droop. She receives one point for fullness in her speech. Test Results: CT head shows chronic involutional changes. No acute hemorrhage. Portable chest x-ray shows decreased right pleural effusion and atelectatic change in the right lung base when compared to prior. EKG is sinus at [address] change. CBC is unremarkable. Chemistry studies reveal a creatinine of 1.17. Her glucose is 140. Troponin is 0.030. Emergency Department Course and Treatment: On repeat evaluation patient is resting comfortably. She is talking with her family. She continues to have no complaint. She still does not remember specific details of what happened. She does state that at one point she did turn the car on so she could turn the heat on because she was becoming cold. She also reported he had some snacks with her in the car. She states the confusion that she felt was not similar to her prior episodes with hypoglycemia. At this point patient will be admitted for further workup and evaluation. Treatment Plan: [] Disposition: Admit Impression: TIA This note was generated with Dragon dictation software. It may contain incorrect words, spelling, and punctuation that were not noted in review of the chart prior to signing ED Disposition - Plan for ED Patient: Chief Complaint: Neuro S/Sx Referrals: Elvis Russell MD [Primary Care Provider] -
--- NOTE | 2018-02-13 22:56 | PCM.HP.STD ---
Problem List (1) TIA (transient ischemic attack) Status: Acute (2) HLD (hyperlipidemia) Status: Chronic Qualifiers: Hyperlipidemia type: unspecified Qualified Code(s): E78.5 - Hyperlipidemia, unspecified (3) Essential (primary) hypertension Status: Chronic (4) Chronic diastolic (congestive) heart failure Status: Chronic (5) Aortic stenosis Status: Chronic Qualifiers: Cardiac valve disease etiology: nonrheumatic Qualified Code(s): I35.0 - Nonrheumatic aortic (valve) stenosis Comment: Mild to moderate per echo 11/16/17 done @ [facility]: see report for measurements (6) Pulmonic valve regurgitation Status: Chronic Comment: Moderate per echo 11/16/17 Done @ [facility] (7) Diabetes type 1, controlled Status: Chronic Qualifiers: Diabetes mellitus complication status: with other specified complication Qualified Code(s): E10.69 - Type 1 diabetes mellitus with other specified complication Comment: dx : last exacerbation : dka : years ago hypoglycemic episode : years ago er visit :years ago (8) Asthma Status: Chronic Qualifiers: Asthma severity: mild Asthma persistence: intermittent Asthma complication type: uncomplicated Qualified Code(s): J45.20 - Mild intermittent asthma, uncomplicated (9) Paroxysmal atrial fibrillation Status: Chronic (10) DVT (deep venous thrombosis) Status: Chronic Qualifiers: DVT location: lower extremity Affected thrombotic vein of extremity: other lower extremity vein Chronicity: acute Laterality: bilateral Qualified Code(s): I82.493 - Acute embolism and thrombosis of other specified deep vein of lower extremity, bilateral History of Present Illness Date of Admission: 02/13/18 Chief Complaint: Confusion, ? Facial Droop The patient is a 82 y/o F w/ PMHx: Hypothyroidism, PAF, HTN, HLD, Chronic Diastolic CHF, History of DVT, Diabetes mellitus type I with insulin pump, Asthma, Valvular Heart Disease, CKD stage III (baseline Cr 0.9-1) who presents to the [facility] ED on 02/13/18 with history of going to the grocery store and checking out at approximately 1511 by the receipt and noted to have sat in her car for several hours with her son calling initially at 4 PM and talking to her but unfortunately her call was potentially dropped and eventually calling her son back at 7 PM noting that she was still in the car at [facility]. She states that she felt poorly but unclear specifically why and had eaten snacks in the car thinking that perhaps this was because of hypoglycemia. She remained confused and also stated she was having difficulty using her phone. In the ED work-up included T 95.2, heart rate 67, BP initially 171/98--> 167/70, respiratory rate 14, 95% on room air, EDC with WBC 7.4, hemoglobin 12.8, platelet 326 without any shift, unremarkable coags, BMP with sodium 135, BUN/creatinine 27/1.17, glucose 140, troponin 0.030, chest x-ray with decreased right pleural effusion and atelectatic changes at the right lung base otherwise stable interstitial changes and mild hyperexpansion, CT brain with chronic involutional changes with no acute findings, EKG with no evidence of acute ischemia. In the ED patient administered normal saline. Past Medical History Past Medical History (Chronic Problems): Chronic Problems (Last Reviewed 01/28/18 @ 13:47 by Juliana Trimble NP-C) HLD (hyperlipidemia) (Chronic) Essential (primary) hypertension (Chronic) Chronic diastolic (congestive) heart failure (Chronic) Aortic stenosis (Chronic) Mild to moderate per echo 11/16/17 done @ [facility]: see report for measurements Pulmonic valve regurgitation (Chronic) Moderate per echo 11/16/17 Done @ [facility] Diabetes type 1, controlled (Chronic) dx : last exacerbation : dka : years ago hypoglycemic episode : years ago er visit :years ago Asthma (Chronic) Atrial fibrillation (Chronic) Secondary pulmonary arterial hypertension (Chronic) RVSP 53mm hg per echo 11/16/2017 done @ [facility] Nonrheumatic mitral (valve) insufficiency (Chronic) Moderate to severe regurgitation per echo 11/16/2017 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 Appetite is fairly good. She reports no issues. Swelling inlegs sl improved. She has resumed her gardening and painting. Sleep is good. Denies any issues. Today her insulin pump is downlaoded. No extreme Bg readings. Bg 140-200 range overall. Medical History: Medical History (Last Reviewed 01/28/18 @ 13:47 by JENNIFER PikeC) Essential (primary) hypertension (Chronic) I10 Chronic diastolic (congestive) heart failure (Chronic) I50.32 Aortic stenosis (Chronic) I35.0 Mild to moderate per echo 11/16/17 done @ [facility]: see report for measurements Pulmonic valve regurgitation (Chronic) I37.1 Moderate per echo 11/16/17 Done @ [facility] Diabetes type 1, controlled (Chronic) E10.9 dx : last exacerbation : dka : years ago hypoglycemic episode : years ago er visit :years ago Asthma (Chronic) J45.909 Atrial fibrillation (Chronic) I48.91 Murmur (Acute) R01.1 Pleural effusion (Resolved) J90 Secondary pulmonary arterial hypertension (Chronic) I27.21 RVSP 53mm hg per echo 11/16/2017 done @ [facility] Nonrheumatic mitral (valve) insufficiency (Chronic) I34.0 Moderate to severe regurgitation per echo 11/16/2017 done @ [facility] snf current use of amiodarone (Chronic) Z79.899 Paroxysmal atrial fibrillation (Chronic) I48.0 DVT (deep venous thrombosis) (Chronic) I82.409 Right-sided heart failure (Chronic) I50.810 Hyperlipidemia due to type 1 diabetes mellitus (Chronic) E10.69, E78.5 Uncontrolled type 1 diabetes mellitus with complication, without long-term current use of insulin (Chronic) E10.8, E10.65 Doing fairly well. Appetite is fairly good. She reports no issues. Swelling inlegs sl improved. She has resumed her gardening and painting. Sleep is good. Denies any issues. Today her insulin pump is downlaoded. No extreme Bg readings. Bg 140-200 range overall. Bone spur M77.9 Cataracts, bilateral H26.9 Tricuspid valve regurgitation, nonrheumatic I36.1 moderate per echo 11/16/2017 done @ [facility] A. fib with RVR, new onset (Inactive) New onset a-fib (Inactive) I48.91 Allergies No Known Allergies Allergy (Verified 01/28/18 13:26) Home Medications: Ambulatory Orders Medication Instructions Recorded apixaban 2.5 mg tablet 2.5 mg PO BID 07/22/17 furosemide 40 mg tablet 20 mg PO BID 09/06/17 Insulin Lispro [Humalog] See Protocol SC CONT 09/25/17 amiodarone 200 mg tablet 100 mg PO DAILY tab 10/22/17 carvedilol 3.125 mg tablet 3.125 mg PO BID #180 tab 10/22/17 Levothyroxine Sodium [Synthroid] 50 mcg PO MOTUWETHFR 02/13/18 Levothyroxine [Synthroid] 75 mcg PO SUSA 02/13/18 Surgical History: - - Tonsillectomy, insulin pump. 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 Maternal Family History: Family History (Last Reviewed 01/28/18 @ 13:47 by EDWINA Pike) Father Kidney disease Cancer History Items: - - Patient denies any market maternal family history including heart disease, diabetes, cancer and states that her mother passed at age 94. Paternal Family History: Family History (Last Reviewed 01/28/18 @ 13:47 by EDWINA Pike) Father Kidney disease Cancer History Items: Cancer, Heart Disease, Renal Disease Review of Systems Constitutional: Reports: Malaise, Fatigue. Denies: Chills, Fever, Weight Change HEENT: Denies: Head Aches, Sinus Congestion, Sinus Drainage Cardiovascular: Denies: Chest Pain, Palpitations Respiratory: Denies: Cough, Shortness of breath at rest, Sputum production Gastrointestinal: Denies: Abdominal Pain, Nausea, Vomiting Genitourinary: Denies: Dysuria Musculoskeletal: Denies: Joint Pain, Joint Tenderness Skin: Reports: Skin Changes. Denies: Rash, Wounds Neurological: Reports: Confusion. Denies: Focal weakness, Numbness, Tingling Psychiatric: Denies: Anxiety, Depression, Homicidal Ideations, Suicidal Ideations Hematologic/ Lymphatic: Reports: Easy Bruising, Easy Bleeding VTE Information - Inpt Only VTE Present on Admission: No VTE Mechan Device Prophylaxis: SCD's VTE Pharm Prophylaxis ordered?: No Reason prophylaxis not ordered:: Treatment Not Indicated - On anticoagulation already. Patient Problems: Active and Suspected Problems (Last Reviewed 01/28/18 @ 13:47 by EDWINA Pike) TIA (transient ischemic attack) (Acute) Subjective: Patient seated upright in the ED bed, no acute distress. Objective: Physical Examination: General: awake, alert, oriented x 3 and cooperative, seated upright in the ED bed in no apparent distress. Skin: normal color, turgor, no icterus, cyanosis. HEENT: AT/NC, EOMI, PERRLA, MMM, unable to discern marked facial droop, no carotid bruits or JVD noted. Lungs: CTA bilaterally, moderate effort, mild decrease BL bases, no rales, ronchi or wheezing. Heart: Regular rate and rhythm; no gallop, rub audible, SM. Abdomen: soft, NTTP, ND, normal BS, no HSM. Extremities: no cyanosis, clubbing, or edema. Neurological: patient awake, alert, oriented x 3; cognitive function intact; pupils equally reactive to light and accomodation; cranial nerves II-XII grossly normal, moving all 4 extremities, no focal deficits, sensation intact, unable to discern market facial droop, FTN and HTS appropriate, negative babinski, strength mildly generally decreased. Psychiatric: affect appears normal, no acute evidence of depressive or anxiety feelings. - Physical Exam Vital Signs Temp Pulse Resp BP Pulse Ox 95.2 F L 64 14 170/73 H 95 02/13/18 19:52 02/13/18 21:52 02/13/18 21:52 02/13/18 21:52 02/13/18 21:52 Oxygen Delivery Method Room Air Weight: 107 lb 12.897 oz Body Mass Index (BMI) 18.5 Finger Stick Blood Glucose 135 Laboratory Tests Past 24 Hrs 02/13/18 02/13/18 02/13/18 20:04 20:04 20:04 WBC 7.4 RBC 4.47 Hgb 12.8 Hct 39.9 MCV 89.3 MCH 28.6 MCHC 32.1 RDW 18.0 H RDW Differential 58.6 H Plt Count 326 MPV 10.1 Immature Gran % (Auto) 0.100 Neut % (Auto) 63.9 Lymph % (Auto) 24.7 [place] % (Auto) 9.7 Eos % (Auto) 1.2 Baso % (Auto) 0.4 Absolute Neuts (auto) 4.7 Absolute Lymphs (auto) 1.83 Total Counted Not Reportable PT Cancelled INR Cancelled APTT Cancelled Sodium 135 L Potassium 4.2 Chloride 99 Carbon Dioxide 30.0 Anion Gap 6 BUN 27 H Creatinine 1.17 H Estim Creat Clear Calc 29.11 Est GFR (MDRD) Af Amer 57 L Est GFR (MDRD) Non-Af 47 L BUN/Creatinine Ratio 23.1 H Glucose 140 H Calcium 9.4 Troponin I 0.030 02/13/18 21:00 WBC RBC Hgb Hct MCV MCH MCHC RDW RDW Differential Plt Count MPV Immature Gran % (Auto) Neut % (Auto) Lymph % (Auto) [place] % (Auto) Eos % (Auto) Baso % (Auto) Absolute Neuts (auto) Absolute Lymphs (auto) Total Counted PT 13.5 INR 1.0 APTT 32.0 Sodium Potassium Chloride Carbon Dioxide Anion Gap BUN Creatinine Estim Creat Clear Calc Est GFR (MDRD) Af Amer Est GFR (MDRD) Non-Af BUN/Creatinine Ratio Glucose Calcium Troponin I POC Glucose 02/13/18 20:00 POC Glucose 135 H Assessment/Plan All Active Problems (Last Reviewed 01/28/18 @ 13:47 by Juliana Trimble, TUBE DRAW HELPER-C) TIA (transient ischemic attack) (Acute) Murmur (Acute) Pleural effusion (Resolved) DKA (diabetic ketoacidoses) (Resolved) Periorbital cellulitis of left eye (Resolved) The patient is a 82 y/o F w/ PMHx: Hypothyroidism, PAF, HTN, HLD, Chronic Diastolic CHF, History of DVT, Diabetes mellitus type I with insulin pump, Asthma, Valvular Heart Disease, CKD stage III who presents to the [facility] ED on 02/13/18 with history of going to the grocery store and checking out at approximately 1511 by the receipt and noted to have sat in her car for several hours with her son calling initially at 4 PM and talking to her but unfortunately her call was potentially dropped and eventually calling her son back at 7 PM noting that she was still in the car at [facility]. She states that she felt poorly but unclear specifically why and had eaten snacks in the car thinking that perhaps this was because of hypoglycemia. (1) Confusion, ? Initial Facial Droop concerning for TIA/CVA: ED work-up included T 95.2, heart rate 67, BP initially 171/98--> 167/70, respiratory rate 14, 95% on room air, CBC with WBC 7.4, hemoglobin 12.8, platelet 326 without any shift, unremarkable coags, BMP with sodium 135, BUN/creatinine 27/1.17, glucose 140, troponin 0.030, chest x-ray with decreased right pleural effusion and atelectatic changes at the right lung base otherwise stable interstitial changes and mild hyperexpansion, CT brain with chronic involutional changes with no acute findings, EKG with no evidence of acute ischemia. Will admit to PCU, will obtain MRI Brain, MRA Head and Neck, ECHO 10/27/2017 w/ LV size normal, normal wall thickness, normal systolic function, EF 55-60%, mild to moderate aortic valve stenosis, mitral valve annulus mildly calcified, leaflets mildly thickened, prolapse unable to be excluded, moderate to severe posteriorly directed regurgitation, trivial pericardial effusion, RVSP 53 mmHg, moderate TVR, moderate PVR, PT/OT/Speech/Nutrition evaluation per protocol. Given resolution, will continue home BP regimen, gently hydrate x 1 L only given CHF history, maintain on apixaban, noton statin, obtain AM FLP, fall precautions. Mag, TSH pending. (2) Chronic Diastolic CHF: Maintain on home apixaban, coreg, lasix, not on ACEI/ARB or statin therapies. (3) PAF: Continue home apixaban, coreg, amiodarone regimen. (4) Diabetes mellitus type I: Continue home insulin regimen, ADA/cardiac diet, accu checks w/ ISS, HgbA1c pending. (5) Hypothyroidism: Continue home synthroid regimen, TSH pending. (6) Hypertension: Continue home regimen including Coreg, Lasix, PRN hydralazine. (7) Hyperlipidemia: Not on agent, FLP in AM. (8) History of DVT: Continue home apixaban regimen. (9) Chronic Asthma: HOB, IS, PRN Albuterol. (10) Chronic Kidney Disease Stage III: Admission BUN/Cr 27/1.17, baseline renal function 0.9-1, repeat BMP in AM. (11) Valvular Heart Disease: , ECHO 10/27/2017 w/ LV size normal, normal wall thickness, normal systolic function, EF 55-60%, mild to moderate aortic valve stenosis, mitral valve annulus mildly calcified, leaflets mildly thickened, prolapse unable to be excluded, moderate to severe posteriorly directed regurgitation, trivial pericardial effusion, RVSP 53 mmHg, moderate TVR, moderate PVR. (12) DVT Prophylaxis: SCDs, apixaban. Code Visit OBSV E&M: [id number] Initial observation care L3
--- NOTE | 2018-02-13 23:54 | MRI_ITS ---
STUDY: MRA NECK WITHOUT CONTRAST REASON FOR EXAM: Female, 82 years old. CVA -- confusion, disorientation. TECHNIQUE: Source images were obtained, MIPs were performed. The study was performed unenhanced. COMPARISON: None. FINDINGS: RIGHT CAROTID ARTERIES: Unremarkable right common carotid artery (CCA). There appears to be moderate atherosclerotic plaque formation with moderate narrowing of the carotid bulb. There appears to be moderate atherosclerotic plaque formation of the origin of the right internal carotid artery with an estimated stenosis of 50-69% stenosis. Unremarkable visualized cervical portion of the right internal carotid artery. LEFT CAROTID ARTERIES: Unremarkable left common carotid artery (CCA). There appears to be moderate atherosclerotic plaque formation with moderate narrowing of the carotid bulb. There appears to be moderate atherosclerotic plaque formation of the origin of the left internal carotid artery with an estimated stenosis of 50% stenosis. Unremarkable visualized cervical portion of the left internal carotid artery. VERTEBRAL ARTERIES: Unremarkable antegrade flow within the bilateral vertebral artery without a hemodynamically significant stenosis. 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 Further evaluation with sonography can be obtained. Electronically Signed: Kateryna Green MD at 10:16 EST Tel , Service support ,
--- NOTE | 2018-02-13 23:54 | MRI_ITS ---
STUDY: MRI BRAIN WITHOUT CONTRAST REASON FOR EXAM: Female, 82 years old. CVAS confusion, disorientation TECHNIQUE: Standardized multiplanar fat and water weighted pulse sequences were obtained. COMPARISON: Feb 13 2018 FINDINGS: There is mild cerebral atrophy with widening of the extra-axial spaces and ventricular dilatation. There are multiple white matter hyperintensities, distributed throughout the deep white matter tracts of the cerebral hemispheres, consistent with mild chronic white matter ischemic changes. Normal bilateral basal ganglia. Normal thalami. There is no extra-axial fluid accumulation. Normal flow voids within the major intracranial circulation suggesting patency by spin echo criteria. Normal sella turcica, pituitary gland, infundibular stalk, optic chiasm and hypothalamus. Normal tectal plate and pineal gland. Normal midbrain, jeovanny and medulla. Normal cerebellum. Normal basal cisterns. Normal bilateral temporal bones. Normal bilateral internal auditory canals. MRI/Brain without Contrast IMPRESSION: No acute intracranial abnormality. Electronically Signed: Kateryna Green MD at 10:13 EST Tel , Service support ,
--- NOTE | 2018-02-13 23:54 | MRI_ITS ---
STUDY: MRA OF THE HEAD WITHOUT CONTRAST REASON FOR EXAM: Female, 82 years old. CVAS confusion, disorientation TECHNIQUE: 3-D [id number] (TOF) imaging was performed with MIPs. The study was performed unenhanced. COMPARISON: None. FINDINGS: Normal bilateral petrous carotid arteries. Normal right cavernous carotid artery with a normal supraclinoid bifurcation. Normal left cavernous carotid artery with a normal supraclinoid bifurcation. Normal right A1 segments of the anterior cerebral artery. Normal left A1 segments of the anterior cerebral artery. Normal intact anterior communicating artery (ACOM). Normal bilateral A2 segments of the anterior cerebral arteries. Normal right M1 and M2 segments of the middle cerebral arteries, with a normal M1 bifurcation. Normal left M1 and M2 segments of the middle cerebral arteries, with a normal M1 bifurcation. There is non-visualization of the right posterior communicating artery (PCOM). 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 Normal bilateral vertebral arteries. Normal basilar artery with a normal basilar bifurcation. The visualized bilateral superior cerebellar (SCA) arteries are normal. Normal right P1, P2 and visualized P3 segments of the posterior cerebral artery. There is moderate stenosis of the P1/P2 segment of the left posterior cerebral artery There is no demonstrated aneurysm of the craig of Velázquez. There is no demonstrated abnormality of the visualized brain. 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 Electronically Signed: Kateryna Green MD at 11:27 EST Tel , Service support ,
[2018-02-14] VITALS (9 sets, daily range): BP systolic 135–168; BP diastolic 59–85; PULSE 61–70; RESP 14–16; TEMP 36.4–36.8; O2SAT 95–98; BMI 18.8; BMI 18.9
[2018-02-14] MEDS: 0.9% Normal Saline 1,000 ML 100 ML IV (01:16)
[2018-02-14 01:20] LABS: Magnesium 2.2 mg/dL (1.6-2.6); Thyroid Stim Hormone (TSH) 2.23 uIU/mL (0.358-3.74)
[2018-02-14 06:22] LABS: Absolute Lymphocyte Count 1.21 X10^3/ul (0.83-4.51); Absolute Neutrophil Count 3.9 X10^3/uL (2.0-7.7); Basophil# 0.02 X10^3/uL; Basophil% 0.4 % (0-1); Eosinophil# 0.06 X10^3/uL; Eosinophils% 1.1 % (0-5); Hematocrit 35.8 % (37-47); Hemoglobin 11.4 g/dl (12.0-15.0); Lymphocyte # 1.21 X10^3/ul (4.0); Lymphocyte % 21.4 % (19-41); Mean Corp Hgb Conc 31.8 g/gl (32-36); Mean Corpuscular Hgb 28.1 pg (27.0-32.0); Mean Corpuscular Volume 88.4 fL (81-99); Monocyte# 0.51 X10^3/uL; Neutrophil # 3.85 X10^3/uL (2.7-7.7); Neutrophil % 67.9 % (47-70); Platelet Count 283 K/mm3 (150-450); RBC Distribution Width SD 58.2 fl (35.1-43.9); Red Blood Count 4.05 M/mm3 (4.2-5.4); White Blood Count 5.7 K/mm3 (4.4-11.0)
[2018-02-14] MEDS: Levothyroxine 50 MCG Tablet PO (06:23)
[2018-02-14 06:39] LABS: POSITIVE COUNT NO; POSITIVE DIFFERENTIAL NO; POSITIVE MORPHOLOGY NO
[2018-02-14 06:42] LABS: Anion Gap 10 (5-15); BUN 25 mg/dL (7-18); BUN/Creat Ratio 23.6 RATIO (10-20); Calcium,Total 8.4 mg/dL (8.5-10.1); Chloride 103 mmol/L (98-107); Cholesterol 207 mg/dL (200); Creatinine, Serum 1.06 mg/dL (0.55-1.02); EST Glomerular Filtration Rate 53 mL/min (>60); Est Glom Filt Rate - Afr Amer 64 mL/min (>60); Estimated Creatinine Clearance 29.77 ml/min; Glucose 307 mg/dL (74-106); High Density Lipoprotein 97 mg/dL; Potassium 4.1 mmol/L (3.5-5.1); Sodium Level 139 mmol/L (136-145); Triglycerides 77 mg/dL; Very Low Density Lipoprotein 15 mg/dL (5-40)
[2018-02-14 07:01] LABS: Bedside Glucose 304 mg/dL (70-110)
[2018-02-14 08:11] LABS: Hemoglobin A1c 10.2 % (4.2-6.3)
[2018-02-14] MEDS: 0.9% NaCl Peripheral Flush Adult/Peds IV (10:18)
[2018-02-14] MEDS: Carvedilol 3.125 MG TABLET PO (10:20)
[2018-02-14] MEDS: Amiodarone 200 MG Tablet 100 MG PO (10:20)
[2018-02-14] MEDS: Furosemide 20 MG Tablet PO (10:21)
[2018-02-14] MEDS: APIXABAN 2.5 MG TABLET PO (10:21)
--- NOTE | 2018-02-14 12:02 | CASEMGMT ---
Face to Face with patient, her son Thad, [id number] and granddaughter for initial transition planning/care coordination assessment. RN CM introduced self and role at [facility], voiced understanding. Care providers, pharmacy, and demographics verified. Pt verified it was ok to discuss these questions with her son and his family present. PCP: Dr. Russell [facility]: has, requires [facility] Living Will/HPOA: Yes, pt states her Romie and her son Thad are listed as her HPOAs LNOK: Romie and Thad Living Arrangements: Pt lives in a one story home with her . There is one step into the home and a single step into the living room. Pt states she has been independent with her ADLs and had been driving. Family check on pt weekly. Pt denies using any DME. Transportation: Drove prior to admission DME/HHC: No DME; Pt participates in the [employer] and has a student visit with her each Wednesday. ECF: Pt had a stay at [facility] in the spring. Pt's son felt she had a home health nurse after being discharged from [facility] but pt could not recall. Pt's son states pt's has memory issues and would not be able to assist pt if needed. Discussed possible skilled home care, including home bound status need, and home health aide services. If skilled services are not warranted, pt's son is interested in private pay HH aide services. Pt states she has not been out of bed since admission and is unsure of her current abilities. PT/OT/ST therapies ordered, evaluations pending. Plan: HH vs SNF pending determined ability to ambulate/perform ADLs. Will continue to follow for further DC needs.
--- NOTE | 2018-02-14 13:18 | NURSING ---
Patient blood sugar 328. Gave self 4 units insulin per insulin pump.
[2018-02-14 14:14] LABS: Mucous, Urine 0 SEEN /hpf (<or=2+); Squamous Epithelial Cells - UA 0 SEEN /hpf (5-10)
[2018-02-14 14:24] LABS: Color, Urine Yellow (Yellow); Glucose, Dipstick 1000 mg/dl (Normal); Ketone-Dipstick Negative (Negative); Leukocyte Esterase-Dipstick 500 /ul (Negative); Nitrite-Dipstick Negative (Negative); Occult Blood-Urine 10 /ul (Negative); Protein-Dipstick 30 mg/dl (Negative); Specific Gravity, Urine 1.005 (1.002-1.030); Urine Bilirubin Dipstick Negative (Negative); Urine Clarity Sl. Cloudy (Clear); Urine Urobilinogen Normal (Normal)
[2018-02-14 14:34] LABS: Bacteria 2+ /hpf (None Seen); Red Blood Cells-Urine 0-5 SEEN /hpf (0-5); White Blood Cells 10-25 SEEN /hpf (0-5)
--- NOTE | 2018-02-14 15:17 | DCINST_ITS ---
- Discharge Diagnoses Current Active Problems: Current Active and Chronic Problems (Last Reviewed 01/28/18 @ 13:47 by EDWINA Pike) HLD (hyperlipidemia) (Chronic) TIA (transient ischemic attack) (Acute) You will use the following diet at home:: Calorie/Carbohydrate Controlled (specify 1200, 1400, etc) Your food should be the consistency of: Regular Your liquids should be the consistency of: Regular/Thin Discharge Activity: No Restrictions Call your doctor if you observe: Fever of 101 or Higher, Inability to urinate Allergies/Adverse Reactions: Allergies No Known Allergies Allergy (Verified 01/28/18 13:26) Medications to take at Discharge apixaban 2.5 mg tablet 2.5 mg PO BID 07/22/17 furosemide 40 mg tablet 20 mg PO BID 09/06/17 Insulin Lispro [Humalog] See Protocol SC CONT 09/25/17 amiodarone 200 mg tablet 100 mg PO DAILY tab 10/22/17 carvedilol 3.125 mg tablet 3.125 mg PO BID #180 tab 10/22/17 Levothyroxine Sodium [Synthroid] 50 mcg PO MOTUWETHFR 02/13/18 Levothyroxine [Synthroid] 75 mcg PO SUSA 02/13/18 Cephalexin [Keflex] 500 mg PO 4X/DAY #16 capsule 02/14/18 The following prescriptions were given: Cephalexin [Keflex] 500 mg PO 4X/DAY #16 capsule Primary Care Physician: Elvis Russell MD [Primary Care Provider] - Please follow up with your Primary Care Physician in: in 3-5 days Test Results: Test results from this visit will be discussed in further detail at your follow- up appointment, if applicable.
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
[2018-02-14 17:15] LABS: Bedside Glucose 328 mg/dL (70-110)
--- NOTE | 2018-02-16 11:12 | CASEMGMT ---
Noted pt was discharged on 02/14 with PT noting pt without need for skilled therapy at discharge. Attempted to contact pt via telephone in follow-up but no answer received and no voicemail option available. This RN CM contacted pt's son in follow-up to his request for home health aide provider information. List of providers on file was emailed to him as requested. He states his mother has been doing well since discharge without concerns. Fidel England RN
== END 2018-02-14 15:16 | disposition home or self-care (01) ==
LOC: ED 20:21 → PCU 22:42
PROVIDERS: Admitting Provider Family Medicine; Emergency Provider Emergency Medicine; Family Provider Family Medicine; PCP Family Medicine; Visit Provider Family Medicine
DX: G45.9 Transient cerebral ischemic attack, unspecified (principal); E78.5 Hyperlipidemia, unspecified; I13.0 Hypertensive heart and chronic kidney disease with heart failure and stage 1 through stage 4 chronic kidney disease, or unspecified chronic kidney disease; I50.32 Chronic diastolic (congestive) heart failure; N18.3 Chronic kidney disease, stage 3 (moderate); E10.22 Type 1 diabetes mellitus with diabetic chronic kidney disease; Z86.718 Personal history of other venous thrombosis and embolism; I48.0 Paroxysmal atrial fibrillation; E03.9 Hypothyroidism, unspecified; Z79.899 Other long term (current) drug therapy; Z79.4 Long term (current) use of insulin; R29.702 NIHSS score 2; I37.1 Nonrheumatic pulmonary valve insufficiency; J45.20 Mild intermittent asthma, uncomplicated; Z87.891 Personal history of nicotine dependence
CPT/HCPCS: 36415; 70450; 70544; 70547; 70551; 71045; 80048; 80061; 81001; 82962; 83036; 83735; 84443; 84484; 85025; 85610; 85730; 87077; 87086; 87088; 87186; 93005; 96360; 96361; 97162; 97165; 97802; 99218; 99284; J7030; A4216; G0378

== ENCOUNTER 2018-02-23 22:12 | Emergency (ER) | payer MEDICARE, SELFPAY ==
[2018-02-14 00:24] VITALS: BMI 18.8
[2018-02-23 22:13] VITALS: BP 173/69; PULSE 64; RESP 15; TEMP 35.9; O2SAT 98; BMI 17.9
[2018-02-23 22:26] LABS: Bedside Glucose 83 mg/dL (70-110)
[2018-02-23 23:11] LABS: Absolute Lymphocyte Count 1.57 X10^3/ul (0.83-4.51); Absolute Neutrophil Count 3.5 X10^3/uL (2.0-7.7); Basophil# 0.02 X10^3/uL; Basophil% 0.3 % (0-1); Eosinophil# 0.12 X10^3/uL; Eosinophils% 2.1 % (0-5); Hematocrit 34.1 % (37-47); Hemoglobin 11.4 g/dl (12.0-15.0); Lymphocyte # 1.57 X10^3/ul (4.0); Lymphocyte % 27.1 % (19-41); Mean Corp Hgb Conc 33.4 g/gl (32-36); Mean Corpuscular Hgb 29.5 pg (27.0-32.0); Mean Corpuscular Volume 88.1 fL (81-99); Monocyte# 0.55 X10^3/uL; Monocyte% 9.5 % (0-10); Neutrophil # 3.53 X10^3/uL (2.7-7.7); Neutrophil % 60.8 % (47-70); Platelet Count 289 K/mm3 (150-450); RBC Distribution Width CV 17.6 % (11.6-14.6); RBC Distribution Width SD 56.6 fl (35.1-43.9); Red Blood Count 3.87 M/mm3 (4.2-5.4); White Blood Count 5.8 K/mm3 (4.4-11.0)
[2018-02-23 23:12] LABS: POSITIVE COUNT NO; POSITIVE DIFFERENTIAL NO; POSITIVE MORPHOLOGY NO
[2018-02-23 23:42] LABS: Anion Gap 6 (5-15); BUN 27 mg/dL (7-18); BUN/Creat Ratio 25.5 RATIO (10-20); Chloride 101 mmol/L (98-107); Creatinine, Serum 1.06 mg/dL (0.55-1.02); EST Glomerular Filtration Rate 53 mL/min (>60); Est Glom Filt Rate - Afr Amer 64 mL/min (>60); Estimated Creatinine Clearance 33.18 ml/min; Glucose 87 mg/dL (74-106); Potassium 4.1 mmol/L (3.5-5.1); Sodium Level 138 mmol/L (136-145)
--- NOTE | 2018-02-23 23:51 | ED.DCSUM_ITS ---
- ER Visit Summary Date of Service: 02/23/18 Chief Complaint: Hypoglycemia History of Present Illness: The patient is a [address] Russell and ADRIEN lorenzo. She has an insulin pump. She reports that she has not had a change in her dose of insulin. She is not been more active than usual. States that her last bolus of insulin was at 630 this evening and she took 5 units. She then had chicken, potatoes, and artichokes for dinner. Just prior to coming emergency department she started to feel weak and confused. She took her blood sugar and it was 40. She drank some orange juice and EMS repeat her sugar on the way here and it was 90. Review of systems: General: No fever, chills, cold sweats. Cardiovascular: No chest pain, palpitations. Respiratory: No cough, shortness of breath, dyspnea on exertion. Gastrointestinal: No abdominal pain, nausea, vomiting, diarrhea, melena, or hematochezia. Genitourinary: No dysuria, frequency, hematuria. Skin: No rash. Neuro: No headache, numbness, weakness. Physical Examination: Vitals: Stable. Afebrile. General: Well-nourished and well-developed. Head: Normocephalic atraumatic. Neck: Supple, no lymphadenopathy. No JVD. Nontender. Cardiovascular: Regular rate and rhythm. No murmurs. Respiratory: No respiratory distress. Clear to auscultation bilaterally. Abdominal: Soft, nontender, nondistended, normal bowel sounds. No guarding, rebound, or peritoneal signs. Back: Nontender. Extremities: Nontender, no edema. Skin: Normal color, no rash. Neurologic: Alert and oriented ?3. Cranial nerves II through XII are intact. Normal strength and sensation. Psych: Normal affect. Test Results: CBC is marked for an H&H 11.4 34.1. Chem-7 is more for glucose of 87, BUN 27, creatinine 1.06. Emergency Department Course and Treatment: Patient was able to eat here without difficulty. Repeat blood sugar is 113. Treatment Plan: Patient will be discharged with instructions to keep a close eye on her sugars. I did discuss with her that she needs to eat more carbs with her evening meal to prevent this. Daughter is with the patient. She is instructed to check her blood sugar again in 1 hour. If it remains stable then to check it again in 2 hours. Keep something that is got carbs in it by the bedside to eat. Return to the emergency department for any worsening symptoms. Disposition: To home in improved and stable condition. Impression: 1. Hypoglycemia. 2. Insulin-dependent diabetes mellitus. This note was generated with [employer] dictation software. It may contain incorrect words, spelling, and punctuation that were not noted in review of the chart prior to signing ED Disposition - Plan for ED Patient: Chief Complaint: Hypoglycemia Instructions: ED Diabetes Hypoglycemia Insulin React Referrals: Elvis Russell MD [Primary Care Provider] - 1-2 Days if not improving
[2018-02-24 00:31] LABS: Bedside Glucose 113 mg/dL (70-110)
[2018-02-24 01:05] VITALS: BP 158/68; PULSE 75; RESP 17; O2SAT 97
--- NOTE | 2018-02-24 01:06 | ED.RN ---
PT GIVEN WRITTEN AND VERBAL DISCHARGE INSTRUCTIONS. PT VERBALIZES UNDERSTANDING. PT IV D/C AND COVERED WITH GAUZE DRESSING.
== END 2018-02-24 01:09 | disposition home or self-care (01) ==
LOC: ED 22:45
PROVIDERS: Emergency Provider Emergency Medicine; Family Provider Family Medicine; PCP Family Medicine
DX: E11.649 Type 2 diabetes mellitus with hypoglycemia without coma (principal); E03.9 Hypothyroidism, unspecified; I11.0 Hypertensive heart disease with heart failure; I50.9 Heart failure, unspecified; J45.909 Unspecified asthma, uncomplicated; I48.0 Paroxysmal atrial fibrillation; Z86.718 Personal history of other venous thrombosis and embolism; Z79.4 Long term (current) use of insulin; Z96.41 Presence of insulin pump (external) (internal); Z86.73 Personal history of transient ischemic attack (TIA), and cerebral infarction without residual deficits; Z79.899 Other long term (current) drug therapy
CPT/HCPCS: 80048; 82962; 85025; 99285; A4216

== ENCOUNTER 2018-03-09 18:38 | Emergency (ER) | payer MEDICARE, SELFPAY ==
[2018-03-09 18:39] VITALS: BP 188/73; PULSE 69; RESP 18; TEMP 36.3; O2SAT 85
[2018-03-09 18:42] VITALS: BP 188/73; PULSE 69; RESP 18; TEMP 36.3; O2SAT 85
--- NOTE | 2018-03-09 18:59 | RAD_ITS ---
STUDY: X-RAY CHEST REASON FOR EXAM: Female, 82 years old. Short of breath TECHNIQUE: PA and lateral COMPARISON: February 13, 2018 FINDINGS: There is diffuse prominence of the interstitial markings most severe in the lower lobes. There is a small right pleural effusion and right lower lobe consolidation.. Heart is upper normal size. Normal mediastinum and jarrell. Normal visualized pulmonary arteries. Calcified aortic arch and descending thoracic aorta. Normal visualized thoracic spine. Normal visualized ribs, clavicles, and shoulders. There is no demonstrated abnormality of the visualized soft tissue structures of the upper abdomen. RAD/Chest PA and Lateral IMPRESSION: Chronic interstitial changes. Small right pleural effusion and right lower lobe consolidation Electronically Signed: Elvis Otero MD at 20:12 EST , Service support ,
[2018-03-09 19:14] LABS: Absolute Lymphocyte Count 1.16 X10^3/ul (0.83-4.51); Absolute Neutrophil Count 4.2 X10^3/uL (2.0-7.7); Basophil# 0.01 X10^3/uL; Basophil% 0.2 % (0-1); Eosinophil# 0.07 X10^3/uL; Eosinophils% 1.1 % (0-5); Hematocrit 35.9 % (37-47); Hemoglobin 11.4 g/dl (12.0-15.0); Lymphocyte # 1.16 X10^3/ul (4.0); Lymphocyte % 18.6 % (19-41); Mean Corp Hgb Conc 31.8 g/gl (32-36); Mean Corpuscular Hgb 28.6 pg (27.0-32.0); Mean Platelet Vol. 9.9 fl (6.2-12.0); Monocyte# 0.77 X10^3/uL; Monocyte% 12.3 % (0-10); Neutrophil # 4.23 X10^3/uL (2.7-7.7); Neutrophil % 67.6 % (47-70); POSITIVE COUNT NO; POSITIVE DIFFERENTIAL NO; POSITIVE MORPHOLOGY NO; Platelet Count 312 K/mm3 (150-450); RBC Distribution Width CV 17.7 % (11.6-14.6); RBC Distribution Width SD 58.9 fl (35.1-43.9); Red Blood Count 3.99 M/mm3 (4.2-5.4); White Blood Count 6.3 K/mm3 (4.4-11.0)
[2018-03-09 19:25] LABS: Albumin, Serum 3.3 g/dL (3.2-5.0); BUN 24 mg/dL (7-18); BUN/Creat Ratio 21.4 RATIO (10-20); Creatinine, Serum 1.12 mg/dL (0.55-1.02); EST Glomerular Filtration Rate 50 mL/min (>60); Est Glom Filt Rate - Afr Amer 60 mL/min (>60); Estimated Creatinine Clearance 28.21 ml/min; Glucose 261 mg/dL (74-106); Protein, Total 7.7 g/dL (6.4-8.2)
[2018-03-09 19:26] LABS: ALB/GLOB Ratio 0.8 RATIO (0.9-2.4); AST(SGOT) 41 U/L (15-37); Alanine Aminotransfer ALT/SGPT 36 U/L (13-56); Alkaline Phosphatase 186 U/L (45-117); Anion Gap 9 (5-15); Calcium,Total 9.2 mg/dL (8.5-10.1); Chloride 99 mmol/L (98-107); Globulin 4.4 g/dL (2.2-4.2); Potassium 4.3 mmol/L (3.5-5.1); Sodium Level 138 mmol/L (136-145)
--- NOTE | 2018-03-09 20:13 | EKG12_ITS ---
Test Reason : Blood Pressure : / mmHG Vent. Rate : 068 BPM Atrial Rate : 068 BPM P-R Int : 264 ms QRS Dur : 092 ms QT Int : 442 ms P-R-T Axes : 065 022 051 degrees QTc Int : 469 ms Sinus rhythm with 1st degree A-V block Otherwise normal ECG Confirmed by EDWIN AGUILERA, BERTHA ([id number]), editor department PAMELA HAYES ([id number]) on 03/11/2018 2:01:17 PM Referred By: DEEPIKA Confirmed By:BERTHA PINEDA MD
[2018-03-09 20:35] LABS: Bacteria 0 SEEN /hpf (None Seen); Mucous, Urine 0 SEEN /hpf (<or=2+); Red Blood Cells-Urine 0 SEEN /hpf (0-5); Squamous Epithelial Cells - UA 0 SEEN /hpf (5-10); White Blood Cells 0 SEEN /hpf (0-5)
[2018-03-09 20:36] LABS: Color, Urine Yellow (Yellow); Glucose, Dipstick 1000 mg/dl (Normal); Ketone-Dipstick Negative (Negative); Leukocyte Esterase-Dipstick Negative /ul (Negative); Nitrite-Dipstick Negative (Negative); Occult Blood-Urine Negative /ul (Negative); Protein-Dipstick 15 mg/dl (Negative); Urine Bilirubin Dipstick Negative (Negative); Urine Clarity Clear (Clear); Urine Urobilinogen Normal (Normal)
[2018-03-09 22:22] VITALS: BP 129/67; PULSE 66; RESP 15; O2SAT 94; O2SAT 95
--- NOTE | 2018-03-09 23:03 | ED.DEP ---
ED Disposition - Plan for ED Patient: Chief Complaint: Weakness Instructions: ED Weakness UKO Prescriptions: Azithromycin [Zithromax Z-Kulwant] 250 mg PO UD #1 box Referrals: Elvis Russell MD [Primary Care Provider] - Marcia Goldberg MD [STAFF PHYSICIAN] - Timothy Caruso MD [STAFF PHYSICIAN] -
[2018-03-09 23:19] VITALS: BP 126/77; PULSE 66; RESP 18; O2SAT 99
--- NOTE | 2018-03-10 00:12 | ED.DCSUM_ITS ---
- ER Visit Summary Date of Service: 03/10/18 Chief Complaint: Weakness, shaking History of Present Illness: The patient is a 82 F presenting with generalized weakness. Patient states that she started to feel generally weak this afternoon. She was with a friend who was driving her home. She was able to get out of the car and walk to her house. She felt very weak and had to sit on the porch. She was then able to get up and go into the house. She states she laid on the floor. She denies falling or syncope. She states she felt too weak to get up. She states that she felt shaky all over. She denies fever. Denies loss of consciousness. Denies numbness or tingling. Denies speech or vision changes. Denies confusion. Denies chest pain or shortness of breath. Denies cough. Denies abdominal pain, nausea, vomiting, diarrhea. Denies headache. She has had these symptoms in the past with urinary tract infections. She is currently on Keflex for UTI. Physical Examination: Vitals are stable. Patient is afebrile. Alert no acute distress. HEENT exam is unremarkable. Neck is supple. Lungs are clear and equal bilaterally. Heart is regular rate and rhythm. Abdomen is soft nontender nondistended. Extremities are unremarkable. Skin is warm and dry. No focal neurologic deficit. NIH 0 Remainder of exam is unremarkable. Emergency Department Course and Treatment: EKG is sinus rate of 68. CBC unremarkable. Chemistries normal except for glucose 261, BUN 24, creatinine 1.12. Alk phos 186, AST 41. Urinalysis shows glucose, 0 white blood cells. Influenza negative. Chest x-ray shows right pleural effusion/consolidation. This appears similar to previous. Patient has no fever, white count, or cough. She has had right-sided pleural effusion in the past. She is able to ambulate in the ED with a pulse ox of 94% on room air. She feels back to baseline and is requesting to go home. Due to the consolidation seen on chest x-ray she is given a prescription for Zithromax. She is advised to follow-up with her primary care physician. Advised return to ED if worsening complaints. Disposition: Discharge home Impression: Generalized weakness This note was generated with [employer] dictation software. It may contain incorrect words, spelling, and punctuation that were not noted in review of the chart prior to signing ED Disposition - Plan for ED Patient: Disposition: Home or Assisted Living Chief Complaint: Weakness Instructions: ED Weakness UKO Prescriptions: Azithromycin [Zithromax Z-Kulwant] 250 mg PO UD #1 box Referrals: Elvis Russell MD [Primary Care Provider] - Timothy Caruso MD [STAFF PHYSICIAN] - Marcia Goldberg MD [STAFF PHYSICIAN] -
== END 2018-03-09 23:20 | disposition home or self-care (01) ==
PROVIDERS: Emergency Provider Emergency Medicine; Family Provider Family Medicine; PCP Family Medicine
DX: R53.1 Weakness (principal); J90 Pleural effusion, not elsewhere classified; R91.8 Other nonspecific abnormal finding of lung field; N39.0 Urinary tract infection, site not specified; I48.91 Unspecified atrial fibrillation; E11.9 Type 2 diabetes mellitus without complications; Z79.4 Long term (current) use of insulin; Z79.01 Long term (current) use of anticoagulants; Z79.899 Other long term (current) drug therapy
CPT/HCPCS: 71046; 80053; 81001; 85025; 87804; 93005; 99285; J7030

== ENCOUNTER 2018-03-30 20:08 | Emergency (ER) | payer MEDICARE, SELFPAY ==
[2018-03-30 20:14] VITALS: BP 201/98; PULSE 68; RESP 13; TEMP 35.7; O2SAT 98; BMI 17.6
[2018-03-30 20:19] VITALS: BP 206/93; PULSE 68; RESP 17; TEMP 35.7; O2SAT 97
[2018-03-30 20:26] LABS: Bedside Glucose 89 mg/dL (70-110)
--- NOTE | 2018-03-30 20:39 | EKG12_ITS ---
Test Reason : GENERAL ILLNESS Blood Pressure : / mmHG Vent. Rate : 067 BPM Atrial Rate : 067 BPM P-R Int : 252 ms QRS Dur : 100 ms QT Int : 434 ms P-R-T Axes : 088 036 064 degrees QTc Int : 458 ms Sinus rhythm with 1st degree A-V block Nonspecific ST abnormality Abnormal ECG Confirmed by EDWIN AGUILERA, BERTHA ([id number]), editor trade journal PAMELA HAYES ([id number]) on 04/04/2018 10:06:10 AM Referred By: JOON Confirmed By:BERTHA PINEDA MD
--- NOTE | 2018-03-30 20:49 | RAD_ITS ---
STUDY: X-RAY CHEST REASON FOR EXAM: Female, 82 years old. Fever TECHNIQUE: Single AP portable view of the chest. COMPARISON: March 09, 2018 FINDINGS: There are interstitial fibrotic changes of the lungs. Small right pleural effusion. There is mild cardiac enlargement. Normal mediastinum and jarrell. Normal visualized pulmonary arteries. There is atherosclerotic calcification of the aortic arch. There is demineralization of the osseous structures. Normal visualized ribs, clavicles, and shoulders. There is no demonstrated abnormality of the visualized soft tissue structures of the upper abdomen. RAD/Chest 1 View (Portable) IMPRESSION: Degenerative changes, as described above. No demonstrated acute cardiopulmonary process. Electronically Signed: Barrett Rowland MD at 21:20 EST , Service support ,
[2018-03-30] MEDS: 0.9% Normal Saline 1,000 ML 100 ML IV (21:03)
[2018-03-30 21:13] LABS: Absolute Neutrophil Count 4.6 X10^3/uL (2.0-7.7); Basophil# 0.03 X10^3/uL; Basophil% 0.4 % (0-1); Eosinophil# 0.12 X10^3/uL; Eosinophils% 1.7 % (0-5); Hematocrit 37.6 % (37-47); Hemoglobin 12.2 g/dl (12.0-15.0); Lymphocyte % 17.4 % (19-41); Mean Corp Hgb Conc 32.4 g/gl (32-36); Mean Corpuscular Hgb 29.6 pg (27.0-32.0); Mean Corpuscular Volume 91.3 fL (81-99); Mean Platelet Vol. 9.7 fl (6.2-12.0); Monocyte# 0.94 X10^3/uL; Monocyte% 13.6 % (0-10); Neutrophil % 66.6 % (47-70); Platelet Count 360 K/mm3 (150-450); RBC Distribution Width CV 16.2 % (11.6-14.6); RBC Distribution Width SD 53.7 fl (35.1-43.9); Red Blood Count 4.12 M/mm3 (4.2-5.4); White Blood Count 6.9 K/mm3 (4.4-11.0)
[2018-03-30 21:15] LABS: POSITIVE COUNT NO; POSITIVE DIFFERENTIAL NO; POSITIVE MORPHOLOGY NO
[2018-03-30 21:23] LABS: Bacteria 0 SEEN /hpf (None Seen); Color, Urine Yellow (Yellow); Glucose, Dipstick Normal (Normal); Ketone-Dipstick Negative (Negative); Leukocyte Esterase-Dipstick 100 /ul (Negative); Mucous, Urine 0 SEEN /hpf (<or=2+); Nitrite-Dipstick Negative (Negative); Occult Blood-Urine Negative /ul (Negative); Protein-Dipstick 30 mg/dl (Negative); Red Blood Cells-Urine 0 SEEN /hpf (0-5); Squamous Epithelial Cells - UA 0 SEEN /hpf (5-10); Urine Bilirubin Dipstick Negative (Negative); Urine Clarity Clear (Clear); Urine Urobilinogen Normal (Normal)
[2018-03-30 21:26] LABS: Anion Gap 8 (5-15); BUN 27 mg/dL (7-18); Calcium,Total 9.3 mg/dL (8.5-10.1); Chloride 98 mmol/L (98-107); Creatinine, Serum 1.04 mg/dL (0.55-1.02); EST Glomerular Filtration Rate 54 mL/min (>60); Est Glom Filt Rate - Afr Amer 65 mL/min (>60); Estimated Creatinine Clearance 30.38 ml/min; Glucose 98 mg/dL (74-106); Potassium 4.1 mmol/L (3.5-5.1); Sodium Level 135 mmol/L (136-145)
[2018-03-30 21:33] LABS: White Blood Cells 10-25 SEEN /hpf (0-5)
[2018-03-30 22:20] VITALS: BP 177/64; PULSE 177; RESP 18; TEMP 35.9; O2SAT 96
--- NOTE | 2018-03-30 22:55 | ED.VISSUMM ---
- ER Visit Summary Date of Service: 03/30/18 Chief Complaint: Not feeling well History of Present Illness: The patient is a 82 F who was making dinner tonight and suddenly started to not feel well. She states she checked her blood sugar was only in the 40s. She ate 2 cookies and drank 2 glasses of orange juice. Her blood sugars john to 110, but the patient still did not feel well. She denies pain or shortness of breath. She denies nausea, vomiting, or diarrhea. Past history significant for TIA, diabetes, hypertension, high cholesterol, CHF, asthma, A. fib, DVT. Patient is currently on Eliquis. Physical Examination: Vital signs on arrival include a blood pressure of 206/93, otherwise vitals are normal. Patient sitting upright in bed no acute distress. Head neck examination normal. Heart is regular rate and rhythm. Lung sounds are clear. Abdomen is soft and nontender. Neuro exam reveals no focal deficits. Test Results: EKG is sinus at [address] change. CBC normal. Chemistry studies reveal BUN 27 and creatinine 1.04. Urinalysis shows 10-25 white blood cells but no nitrites and no bacteria. Troponin is negative. Portable chest x-ray shows no acute process. Emergency Department Course and Treatment: Patient was given IV fluids at 100 cc/h. Repeat evaluation she is resting comfortably. She does feel improved. Blood sugar was checked and was noted to be in the 170s. Patient's meter at the same time was reading 203. She just started using this new meter and will keep track with this new scanner along with her traditional fingerstick method and follow-up with ADRIEN Burch. Urine will be sent for a culture the patient will not be started on antibiotics at this time. She has a follow-up appointment scheduled with her primary care physician next Wednesday. Treatment Plan: [] Disposition: Discharge Impression: Myalgias, improved This note was generated with [employer] dictation software. It may contain incorrect words, spelling, and punctuation that were not noted in review of the chart prior to signing ED Disposition - Plan for ED Patient: Chief Complaint: General Illness Referrals: Elvis Russell MD [Primary Care Provider] -
[2018-03-30 22:56] LABS: Bedside Glucose 177 mg/dL (70-110)
--- NOTE | 2018-03-30 22:59 | ED.DEP ---
ED Disposition - Plan for ED Patient: Disposition: Home or Assisted Living Chief Complaint: General Illness Instructions: ED Diabetes Hypoglycemia Insulin React Referrals: Elvis Russell MD [Primary Care Provider] - Keep Faye appointment
[2018-03-30 23:34] VITALS: BP 166/67; PULSE 64; RESP 14; O2SAT 98
== END 2018-03-30 23:35 | disposition home or self-care (01) ==
PROVIDERS: Emergency Provider Emergency Medicine; Family Provider Family Medicine; PCP Family Medicine
DX: M79.10 Myalgia, unspecified site (principal); E11.9 Type 2 diabetes mellitus without complications; E78.00 Pure hypercholesterolemia, unspecified; I11.0 Hypertensive heart disease with heart failure; I50.9 Heart failure, unspecified; I48.91 Unspecified atrial fibrillation; Z86.73 Personal history of transient ischemic attack (TIA), and cerebral infarction without residual deficits; Z86.718 Personal history of other venous thrombosis and embolism; Z79.01 Long term (current) use of anticoagulants; Z79.4 Long term (current) use of insulin; Z96.41 Presence of insulin pump (external) (internal); Z79.899 Other long term (current) drug therapy; Z87.891 Personal history of nicotine dependence
CPT/HCPCS: 71045; 80048; 81001; 82962; 84484; 85025; 87086; 87088; 87186; 93005; 96360; 96361; 99285; J7030

== ENCOUNTER → 2018-05-10 13:00 | Outpatient (CLI) | payer MEDICARE, SELFPAY ==
[2018-05-02 15:39] VITALS: BMI 17.6
--- NOTE | 2018-05-10 14:54 | PFTCOMP ---
COMPLETE PULMONARY FUNCTION TEST INTERPRETATION Brief HPI: Patient is an 82 year old female, currently under the care of Juliana Trimble, who presents to [facility] for complete pulmonary function tests secondary to diagnosis of dyspnea. Respiratory therapist reports good effort and reproducible results. Interpretation: Forced expiration spirometry shows no large airways obstructive ventilatory defect with an FEV1 of 83% predicted. There is some improvement following bronchodilators, but this does not reach significant bronchodilator response by strict ATS criteria. Spirograms are of good quality and plateau slowly, indicating slowly emptying areas of the lungs. The respiratory flow volume loop shows decreased expiratory flow rates at high lung volumes consistent with small airways obstruction. Lung volumes by body plethysmography show a normal total lung capacity at 4 L, 88% predicted. All other lung volumes are within normal limits. Diffusion capacity by carbon monoxide is normal at 70% predicted. The airway resistance is normal. No previous pulmonary function tests were available for review. Impression: These pulmonary function tests are grossly within normal limits. There is some stigmata of possible small airways disease.
--- NOTE | 2018-05-10 14:57 | PFTCOMP_ITS ---
COMPLETE PULMONARY FUNCTION TEST INTERPRETATION Brief HPI: Patient is an 82 year old female, currently under the care of Lia Trimble, who presents to [facility] for complete pulmonary function tests secondary to diagnosis of dyspnea. Respiratory therapist reports good effort and reproducible results. Interpretation: Forced expiration spirometry shows no large airways obstructive ventilatory defect with an FEV1 of 83% predicted. There is some improvement following bron chodilators, but this does not reach significant bronchodilator response by strict ATS criteria. Spirograms are of good quality and plateau slowly, indicating slowly emptying areas of the lungs. The respiratory flow volume loop shows decreased expiratory flow rates at high lung volumes consistent with small airways obstruction. Lung volumes by body plethysmography show a normal total lung capacity at 4 L, 88% predicted. All other lung volumes are within normal limits. Diffusion capacity by carbon monoxide is normal at 70% predicted. The airway resistance is normal. No previous pulmonary function tests were available for review. Impression: These pulmonary function tests are grossly within normal limits. There is some stigmata of possible small airways disease.
== END ==
PROVIDERS: Family Provider Family Medicine; PCP Family Medicine; Referring Provider Nurse Practitioner Acute Care; Visit Provider Nurse Practitioner Acute Care
DX: E10.65 Type 1 diabetes mellitus with hyperglycemia (principal); E10.69 Type 1 diabetes mellitus with other specified complication; E78.5 Hyperlipidemia, unspecified; I50.810 Right heart failure, unspecified; I82.409 Acute embolism and thrombosis of unspecified deep veins of unspecified lower extremity; I48.0 Paroxysmal atrial fibrillation; I34.0 Nonrheumatic mitral (valve) insufficiency; R06.00 Dyspnea, unspecified; Z79.899 Other long term (current) drug therapy
CPT/HCPCS: 94060; 94726; 94729

== ENCOUNTER 2018-05-20 19:49 | Inpatient (IN) | payer MEDICARE, SELFPAY ==
[2018-05-02 15:39] VITALS: BMI 17.6
[2018-05-20 19:54] VITALS: BP 126/57; PULSE 89; RESP 13; TEMP 36.4; O2SAT 99; BMI 17.7
--- NOTE | 2018-05-20 20:26 | EKG12_ITS ---
Test Reason : Blood Pressure : / mmHG Vent. Rate : 083 BPM Atrial Rate : 083 BPM P-R Int : 282 ms QRS Dur : 092 ms QT Int : 390 ms P-R-T Axes : 083 038 151 degrees QTc Int : 458 ms Sinus rhythm with 1st degree A-V block Marked ST abnormality, possible inferior subendocardial injury Marked ST abnormality, possible anterior subendocardial injury Abnormal ECG Confirmed by EDWIN AGUILERA, BERTHA ([id number]), acquisitions editor PAMELA HAYES ([id number] on 05/23/2018 1:52:51 PM Referred By: Rah Faulkner Confirmed By:BERTHA PINEDA MD
[2018-05-20 20:49] LABS: Hematocrit 35.6 % (37-47); Hemoglobin 11.3 g/dl (12.0-15.0); Mean Corp Hgb Conc 31.7 g/gl (32-36); Mean Corpuscular Hgb 30.5 pg (27.0-32.0); Mean Platelet Vol. 10.4 fl (6.2-12.0); POSITIVE COUNT NO; POSITIVE DIFFERENTIAL NO; POSITIVE MORPHOLOGY NO; Platelet Count 333 K/mm3 (150-450); RBC Distribution Width CV 16.2 % (11.6-14.6); RBC Distribution Width SD 56.4 fl (35.1-43.9); Red Blood Count 3.71 M/mm3 (4.2-5.4); White Blood Count 13.5 K/mm3 (4.4-11.0)
[2018-05-20 20:50] LABS: Absolute Lymphocyte Count 0.82 X10^3/ul (0.83-4.51); Absolute Neutrophil Count 12.3 X10^3/uL (2.0-7.7); Basophil# 0.02 X10^3/uL; Basophil% 0.1 % (0-1); Lymphocyte # 0.82 X10^3/ul (4.0); Lymphocyte % 6.1 % (19-41); Monocyte# 0.33 X10^3/uL; Monocyte% 2.4 % (0-10); Neutrophil # 12.28 X10^3/uL (2.7-7.7); Neutrophil % 91.1 % (47-70)
[2018-05-20] MEDS: 0.9% Normal Saline 1,000 ML 999 ML IV ×2 (20:51→20:53)
[2018-05-20] MEDS: Ondansetron 4 MG/2 ML Vial IV ×2 (20:51→22:37)
[2018-05-20 21:06] LABS: Bedside Glucose > 500 mg/dL (70-110)
[2018-05-20 21:16] LABS: Hemoglobin A1c 10.7 % (4.2-6.3)
[2018-05-20 21:21] LABS: Anion Gap 24 (5-15); BUN 48 mg/dL (7-18); BUN/Creat Ratio 27.3 RATIO (10-20); Calcium,Total 9.6 mg/dL (8.5-10.1); Chloride 97 mmol/L (98-107); Creatinine, Serum 1.76 mg/dL (0.55-1.02); EST Glomerular Filtration Rate 29 mL/min (>60); Est Glom Filt Rate - Afr Amer 36 mL/min (>60); Estimated Creatinine Clearance 17.41 ml/min; Glucose 590 mg/dL (74-106); Magnesium 2.7 mg/dL (1.6-2.6); Potassium 4.9 mmol/L (3.5-5.1)
[2018-05-20 21:55] LABS: Bedside Glucose > 500 mg/dL (70-110)
[2018-05-20 22:15] VITALS: BP 97/50; PULSE 81; RESP 15; O2SAT 100
--- NOTE | 2018-05-20 22:40 | PCM.HP.STD ---
Problem List (1) HLD (hyperlipidemia) Status: Chronic Qualifiers: (2) Essential (primary) hypertension Status: Chronic (3) Asthma Status: Chronic Qualifiers: (4) Paroxysmal atrial fibrillation Status: Chronic (5) DVT (deep venous thrombosis) Status: Chronic Qualifiers: (6) Uncontrolled type 1 diabetes mellitus with complication, without long-term current use of insulin Status: Chronic Comment: Doing fairly well. Appetite is fairly good. She reports no issues. Swelling in legs sl improved. History of Present Illness Date of Admission: 05/20/18 Chief Complaint: Nausea, vomiting, diarrhea. The patient is a 82 year old F with past medical history as mentioned above presented to the emergency room because of nausea, vomiting and diarrhea. Her illness started today morning with persistent nausea and vomiting, has been throwing up since this morning, no aggravating or relieving factors associated with diarrhea with watery stool without blood as well as profound weakness. She denied abdominal pain, fever or chills. She denied chest pain, shortness of breath, palpitation, dizziness or lightheadedness. She denied cough or sputum production. She denies urinary symptoms. In the emergency room, her vital signs were stable. Her routine blood work was remarkable for mild leukocytosis, chronic anemia with stable hemoglobin, BUN of 48 and creatinine of 1.76. Her blood glucose was 590. Serum bicarb was 14 and anion gap was 24. Her hemoglobin A1c was 10.7. EKG revealed normal sinus rhythm with first-degree AV block, IL interval of 282 ms, ST segment depression in leads II, V3, V 4, V5 and V6, there was no evidence of acute ST elevation. Compared to EKG from March,, the ST segment depression is new and it is significant. Patient denies any chest pain. She is being admitted for diabetic ketoacidosis, acute kidney injury and abnormal EKG. Past Medical History Past Medical History (Chronic Problems): Chronic Problems (Last Updated 05/20/18 @ 22:39 by Rah Faulkner MD) HLD (hyperlipidemia) (Chronic) TIA (transient ischemic attack) (Chronic) Essential (primary) hypertension (Chronic) Chronic diastolic (congestive) heart failure (Chronic) Aortic stenosis (Chronic) Mild to moderate per echo 11/16/17 done @ [facility]: see report for measurements Pulmonic valve regurgitation (Chronic) Moderate per echo 11/16/17 Done @ [facility] Diabetes type 1, controlled (Chronic) dx : last exacerbation : dka : years ago hypoglycemic episode : 02/06 er visit :years ago Asthma (Chronic) Secondary pulmonary arterial hypertension (Chronic) RVSP 53mm hg per echo 11/16/2017 done @ [facility] Nonrheumatic mitral (valve) insufficiency (Chronic) Moderate to severe regurgitation per echo 11/16/2017 done @ [facility] Paroxysmal atrial fibrillation (Chronic) DVT (deep venous thrombosis) (Chronic) Right-sided heart failure (Chronic) Uncontrolled type 1 diabetes mellitus with complication, without long-term current use of insulin (Chronic) Doing fairly well. Appetite is fairly good. She reports no issues. Swelling in legs sl improved. Medical History: Medical History (Last Updated 05/20/18 @ 22:39 by Rah Faulkner MD) Essential (primary) hypertension (Chronic) I10 Chronic diastolic (congestive) heart failure (Chronic) I50.32 Aortic stenosis (Chronic) I35.0 Mild to moderate per echo 11/16/17 done @ [facility]: see report for measurements Pulmonic valve regurgitation (Chronic) I37.1 Moderate per echo 11/16/17 Done @ [facility] Diabetes type 1, controlled (Chronic) E10.9 dx : last exacerbation : dka : years ago hypoglycemic episode : 02/06 er visit :years ago Asthma (Chronic) J45.909 Secondary pulmonary arterial hypertension (Chronic) I27.21 RVSP 53mm hg per echo 11/16/2017 done @ [facility] Nonrheumatic mitral (valve) insufficiency (Chronic) I34.0 Moderate to severe regurgitation per echo 11/16/2017 done @ [facility] Paroxysmal atrial fibrillation (Chronic) I48.0 DVT (deep venous thrombosis) (Chronic) I82.409 Right-sided heart failure (Chronic) I50.810 Uncontrolled type 1 diabetes mellitus with complication, without long-term current use of insulin (Chronic) E10.8, E10.65 Doing fairly well. Appetite is fairly good. She reports no issues. Swelling in legs sl improved. Bone spur M77.9 Cataracts, bilateral H26.9 Tricuspid valve regurgitation, nonrheumatic I36.1 moderate per echo 11/16/2017 done @ [facility] Allergies No Known Allergies Allergy (Verified 05/20/18 19:50) Home Medications: Ambulatory Orders Medication Instructions Recorded apixaban 2.5 mg tablet 2.5 mg PO BID 07/22/17 furosemide 40 mg tablet 40 mg PO DAILY 09/06/17 Insulin Lispro [Humalog] See Protocol SC CONT 09/25/17 carvedilol 3.125 mg tablet 3.125 mg PO BID #180 tab 10/22/17 Levothyroxine Sodium [Synthroid] 75 mcg PO SUSA 02/13/18 Amiodarone HCl 100 mg PO DAILY 05/20/18 Furosemide 20 mg PO DAILY 05/20/18 Levothyroxine [Synthroid] 50 mcg PO MOTUWETHFR 05/20/18 Surgical History: - - Tonsillectomy, insulin pump. Psychiatric History: No pertinent psych hx [employer] History: No pertinent [employer] history Lives: Spouse/ Significant Other Smoking Status: Former smoker Alcohol: None Drugs: None - *Family History Sibling Family History: Family History (Last Reviewed 05/02/18 @ 15:35 by Camille Escalante) Father Kidney disease Cancer History Items: Heart Disease - Had some cardiac surgery. Maternal Family History: Family History (Last Reviewed 05/02/18 @ 15:35 by Camille Escalante) Father Kidney disease Cancer History Items: - - Patient denies any market maternal family history including heart disease, diabetes, cancer and states that her mother passed at age 94. Paternal Family History: Family History (Last Reviewed 05/02/18 @ 15:35 by Camille Escalante) Father Kidney disease Cancer History Items: Cancer, Heart Disease, Renal Disease Review of Systems Constitutional: Reports: Anorexia, Weakness, Fatigue. Denies: Chills, Fever Eyes: Denies: Blurred vision, Double vision, Drainage, Redness HEENT: Denies: Difficulty Hearing, Ear Pain, Eye Pain, Nasal Congestion, Sore Throat Cardiovascular: Denies: Chest Pain, Chest Pressure, Chest Tightness, Edema, Heaviness, Light Headedness, Palpitations, Syncope Respiratory: Denies: Cough, Hemoptysis, Pleuritic Pain, Shortness of Breath, Sputum production, Wheezing Gastrointestinal: Reports: Diarrhea, Nausea, Vomiting. Denies: Abdominal Pain, Constipation Genitourinary: Denies: Dysuria, Frequency, Hematuria Musculoskeletal: Denies: Arm Pain, Back Pain, Foot Pain Skin: Denies: Dryness, Rash Neurological: Denies: Balance problems, Double vision, Change in Speech, Slurred speech, Headaches, Incoordination, Numbness, Tingling Psychiatric: Denies: Anxiety, Depression Endocrine: Denies: Change in Body Habitus, Polydipsia VTE Information - Inpt Only VTE Present on Admission: No VTE Mechan Device Prophylaxis: None VTE Pharm Prophylaxis ordered?: No - Physical Exam General: Alert, Oriented x3, Cooperative, - - Weak, lethargic, easily arousable. HEENT: Atraumatic, PERRLA, EOMI, Normocephalic Oral: No Gingival or Mucosal Lesions/ Ulcerations, Dry Mucosa Neck: Supple, No JVD, Negative Carotid Bruits, Trachea Midline, Thyroid Normal Size and Texture Lungs: Clear to auscultation, No rhonchi, No wheeze, No rales, Diminished Cardiovascular: Regular rate, Regular Rhythm, Normal S1, Normal S2, PMI Normal, Murmur Abdomen: Bowel Sounds Present, Soft, Non Tender, Non-Distended, No Hepato-splenomegaly Extremities: No clubbing, No cyanosis, No edema Skin: No rashes, No breakdown Lymphatic: No Cervical, Supraclavicular, or Inguinal Adenopathy Neurological: Cranial nerves II-XII grossly intact, Motor Exam 5/5 strength throughout Psych/Mental Status: Flat Affect, Alert and oriented to time, place, person, mood and affect Vital Signs Temp Pulse Resp BP Pulse Ox 97.5 F L 81 15 97/50 L 100 05/20/18 19:54 05/20/18 22:15 05/20/18 22:15 05/20/18 22:15 05/20/18 22:15 Oxygen Delivery Method Room Air Weight: 97 lb 0.054 oz Body Mass Index (BMI) 17.7 Finger Stick Blood Glucose 547 Laboratory Tests Past 24 Hrs 05/20/18 05/20/18 05/20/18 20:26 20:30 20:34 WBC 13.5 H RBC 3.71 L Hgb 11.3 L Hct 35.6 L MCV 96.0 MCH 30.5 MCHC 31.7 L RDW 16.2 H RDW Differential 56.4 H Plt Count 333 MPV 10.4 Immature Gran % (Auto) 0.300 Neut % (Auto) 91.1 H Lymph % (Auto) 6.1 L [place] % (Auto) 2.4 Eos % (Auto) 0.0 Baso % (Auto) 0.1 Absolute Neuts (auto) 12.3 H Absolute Lymphs (auto) 0.82 L Total Counted Not Reportable Sodium 135 L Potassium 4.9 Chloride 97 L Carbon Dioxide 14.0 L Anion Gap 24 H BUN 48 H Creatinine 1.76 H Estim Creat Clear Calc 17.41 Est GFR (MDRD) Af Amer 36 L Est GFR (MDRD) Non-Af 29 L BUN/Creatinine Ratio 27.3 H Glucose 590 H* Hemoglobin A1c Calcium 9.6 Magnesium 2.7 H Troponin I 0.029 Acetone Level SMALL H 05/20/18 05/20/18 20:34 22:30 WBC RBC Hgb Hct MCV MCH MCHC RDW RDW Differential Plt Count MPV Immature Gran % (Auto) Neut % (Auto) Lymph % (Auto) [place] % (Auto) Eos % (Auto) Baso % (Auto) Absolute Neuts (auto) Absolute Lymphs (auto) Total Counted Sodium Pending Potassium Pending Chloride Pending Carbon Dioxide Pending Anion Gap Pending BUN Pending Creatinine Pending Estim Creat Clear Calc Est GFR (MDRD) Af Amer Pending Est GFR (MDRD) Non-Af Pending BUN/Creatinine Ratio Pending Glucose Pending Hemoglobin A1c 10.7 H Calcium Pending Magnesium Troponin I Acetone Level POC Glucose 05/20/18 05/20/18 21:46 20:56 POC Glucose > 500 H* > 500 H* Assessment/Plan This is an 82 years old female patient presented to the medicine because of nausea, vomiting and diarrhea and she was found to have blood sugar of 571 with serum bicarb of 11 and anion gap of 22 consistent with diabetic ketoacidosis and also found to have acute kidney injury and new EKG changes. #1 diabetic ketoacidosis: Patient is on insulin pump, has been working fine according to the daughter. She was admitted around 1 year ago for DKA. Serum bicarb is 11, anion gap is 22. She was started on IV insulin drip. Her vital signs are stable. EKG is reviewed as above. Plan: Admit to ICU, complete bedrest, initiate DKA protocol with IV fluids, keep on n.p.o., IV insulin drip, ICU electrolyte replacement protocol, urinalysis, chest x-ray, stool for C. difficile, stool for enteric pathogens, repeat CBC and BMP tomorrow morning, critical care consult, PT OT evaluation and treatment. #2 acute kidney injury: Secondary to above. Patient is severely dehydrated, dry mucous membranes. Her vital signs are stable. Baseline kidney function is normal. Plan: IV fluids per protocol, input output chart, repeat BMP tomorrow morning. #3 abnormal EKG: EKG revealed first-degree AV block, normal sinus rhythm, significant ST segment depression in leads II, V3, V4, V5 and V6. No evidence of acute C elevation. First troponin is negative. Plan: Cardiac monitoring, serial cardiac enzymes, repeat EKG tomorrow morning, cardiology consult. Dr. Tay was notified by ER physician and he will see the patient tomorrow morning in consultation. #4 uncontrolled type 1 diabetes mellitus: On insulin pump for at least 30 years. Hemoglobin A1c is 10.7. Plan as above. #5 paroxysmal atrial fibrillation: Rate is controlled, blood pressure stable, continue amiodarone and Coreg for rate control, hold Eliquis for now. #6 hypertension: Blood pressure stable, continue Coreg, hold Lasix. #7 chronic diastolic CHF: Clinically stable, compensated, plan to continue Coreg, hold Lasix, monitor volume status. #8 hypothyroidism: Continue levothyroxine. #9 DVT prophylaxis: SCDs. This note was generated with [employer] dictation software. It may contain incorrect words, spelling, and punctuation that were not noted in checking the note before signing. Code Visit Inpatient E&M: 96959 Init Hosp L3
--- NOTE | 2018-05-20 22:43 | HP.PCM_ITS ---
Problem List (1) HLD (hyperlipidemia) Status: Chronic Qualifiers: (2) Essential (primary) hypertension Status: Chronic (3) Asthma Status: Chronic Qualifiers: (4) Paroxysmal atrial fibrillation Status: Chronic (5) DVT (deep venous thrombosis) Status: Chronic Qualifiers: (6) Uncontrolled type 1 diabetes mellitus with complication, without long-term current use of insulin Status: Chronic Comment: Doing fairly well. Appetite is fairly good. She rep orts no issues. Swelling in legs sl improved. History of Present Illness Date of Admission: 05/20/18 Chief Complaint: Nausea, vomiting, diarrhea. The patient is a 82 year old F with past medical history as mentioned above presented to the emergency room because of nausea, vomiting and diarrhea. Her illness started today morning with persistent nausea and vomiting, has been throwing up since this morning, no aggravating or relieving factors associated with diarrhea with watery stool without blood as well as profound weakness. She denied abdominal pain, fever or chills. She denied chest pain, shortness of breath, palpitation, dizziness or lightheadedness. She denied cough or sputum production. She denies urinary symptoms. In the emergency room, her vital signs were stable. Her routine blood work was remarkable for mild leukocytosis, chronic anemia with stable hemoglobin, BUN of 48 and creatinine of 1.76. Her blood glucose was 590. Serum bicarb was 14 and anion gap was 24. Her hemoglobin A1c was 10.7. EKG revealed normal sinus rhythm with first-degree AV block, TX interval of 282 ms, ST segment depression in leads II, V3, V 4, V5 and V6, there was no evidence of acute ST elevation. Compared to EKG from March,, the ST segment depression is new and it is significant. Patient denies a ny chest pain. She is being admitted for diabetic ketoacidosis, acute kidney injury and abnormal EKG. Past Medical History Past Medical History (Chronic Problems): Chronic Problems (Last Updated 05/20/18 @ 22:39 by Rah Faulkner MD) HLD (hyperlipidemia) (Chronic) TIA (transient ischemic attack) (Chronic) Essential (primary) hypertension (Chronic) Chronic diastolic (congestive) heart failure (Chronic) Aortic stenosis (Chronic) Mild to moderate per echo 11/16/17 done @ [facility]: see report for measurements Pulmonic valve regurgitation (Chronic) Moderate per echo 11/16/17 Done @ [facility] Diabetes type 1, controlled (Chronic) dx : last exacerbation : dka : years ago hypoglycemic episode : 02/06 er visit :years ago Asthma (Chronic) Secondary pulmonary arterial hypertension (Chronic) RVSP 53mm hg per echo 11/16/2017 done @ [facility] Nonrheumatic mitral (valve) insufficiency (Chronic) Moderate to severe regurgitation per echo 11/16/2017 done @ [facility] Paroxysmal atrial fibrillation (Chronic) DVT (deep venous thrombosis) (Chronic) Right-sided heart failure (Chronic) Uncontrolled type 1 diabetes mellitus with complication, without long-term current use of insulin (Chronic) Doing fairly well. Appetite is fairly good. She reports no issues. Swelling in legs sl improved. Medical History: Medical History (Last Updated 05/20/18 @ 22:39 by Rah Faulkner MD) Essential (primary) hypertension (Chronic) I10 Chronic diastolic (congestive) heart failure (Chronic) I50.32 Aortic stenosis (Chronic) I35.0 Mild to moderate per echo 11/16/17 done @ [facility]: see report for measurements Pulmonic valve regurgitation (Chronic) I37.1 Moderate per echo 11/16/17 Done @ [facility] Diabetes type 1, controlled (Chronic) E10.9 dx : last exacerbation : dka : years ago hypoglycemic episode : 02/06 er visit :years ago Asthma (Chronic) J45.909 Secondary pulmonary arterial hypertension (Chronic) I27.21 RVSP 53mm hg per echo 11/16/2017 done @ [facility] Nonrheumatic mitral (valve) insufficiency (Chronic) I34.0 Moderate to severe regurgitation per echo 11/16/2017 done @ [facility] Paroxysmal atrial fibrillation (Chronic) I48.0 DVT (deep venous thrombosis) (Chronic) I82.409 Right-sided heart failure (Chronic) I50.810 Uncontrolled type 1 diabetes mellitus with complication, without long-term current use of insulin (Chronic) E10.8, E10.65 Doing fairly well. Appetite is fairly good. She reports no issues. Swelling in legs sl improved. Bone spur M77.9 Cataracts, bilateral H26.9 Tricuspid valve regurgitation, nonrheumatic I36.1 moderate per echo 11/16/2017 [facility] Allergies No Known Allergies Allergy (Verified 05/20/18 19:50) Home Medications: Ambulatory Orders Medication Instructions Recorded apixaban 2.5 mg tablet 2.5 mg PO BID 07/22/17 furosemide 40 mg tablet 40 mg PO DAILY 09/06/17 Insulin Lispro [Humalog] See Protocol SC CONT 09/25/17 carvedilol 3.125 mg tablet 3.125 mg PO BID #180 tab 10/22/17 Levothyroxine Sodium [Synthroid] 75 mcg PO SUSA 02/13/18 Amiodarone HCl 100 mg PO DAILY 05/20/18 Furosemide 20 mg PO DAILY 05/20/18 Levothyroxine [Synthroid] 50 mcg PO MOTUWETHFR 05/20/18 Surgical History: - - Tonsillectomy, insulin pump. 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 Maternal Family History: Family History (Last Reviewed 05/02/18 @ 15:35 by Camille Escalante) Father Kidney disease Cancer History Items: - - Patient denies any market maternal family history including heart disease, diabetes, cancer and states that her mother passed at age 94. Paternal Family History: Family History (Last Reviewed 05/02/18 @ 15:35 by Camille Escalante) Father Kidney disease Cancer History Items: Cancer, Heart Disease, Renal Disease Review of Systems Constitutional: Reports: Anorexia, Weakness, Fatigue. Denies: Chills, Fever Eyes: Denies: Blurred vision, Double vision, Drainage, Redness HEENT: Denies: Difficulty Hearing, Ear Pain, Eye Pain, Nasal Congestion, Sore Throat Cardiovascular: Denies: Chest Pain, Chest Pressure, Chest Tightness, Edema, Heaviness, Light Headedness, Palpitations, Syncope Respiratory: Denies: Cough, Hemoptysis, Pleuritic Pain, Shortness of Breath, Sputum production, Wheezing Gastrointestinal: Reports: Diarrhea, Nausea, Vomiting. Denies: Abdominal Pain, Constipation Genitourinary: Denies: Dysuria, Frequency, Hematuria Musculoskeletal: Denies: Arm Pain, Back Pain, Foot Pain Skin: Denies: Dryness, Rash Neurological: Denies: Balance problems, Double vision, Change in Speech, Slurred speech, Headaches, Incoordination, Numbness, Tingling Psychiatric: Denies: Anxiety, Depression Endocrine: Denies: Change in Body Habitus, Polydipsia VTE Information - Inpt Only VTE Present on Admission: No VTE Mechan Device Prophylaxis: None VTE Pharm Prophylaxis ordered?: No - Physical Exam General: Alert, Oriented x3, Cooperative, - - Weak, lethargic, easily arousable. HEENT: Atraumatic, PERRLA, EOMI, Normocephalic Oral: No Gingival or Mucosal Lesions/ Ulcerations, Dry Mucosa Neck: Supple, No JVD, Negative Carotid Bruits, Trachea Midline, Thyroid Normal Size and Texture Lungs: Clear to auscultation, No rhonchi, No wheeze, No rales, Diminished Cardiovascular: Regular rate, Regular Rhythm, Normal S1, Normal S2, PMI Normal, Murmur Abdomen: Bowel Sounds Present, Soft, Non Tender, Non-Distended, No Hepato- splenomegaly Extremities: No clubbing, No cyanosis, No edema Skin: No rashes, No breakdown Lymphatic: No Cervical, Supraclavicular, or Inguinal Adenopathy Neurological: Cranial nerves II-XII grossly intact, Motor Exam 5/5 strength throughout Psych/Mental Status: Flat Affect, Alert and oriented to time, place, person, mood and affect Vital Signs Temp Pulse Resp BP Pulse Ox 97.5 F L 81 15 97/50 L 100 05/20/18 19:54 05/20/18 22:15 05/20/18 22:15 05/20/18 22:15 05/20/18 22:15 Oxygen Delivery Method Room Air Weight: 97 lb 0.054 oz Body Mass Index (BMI) 17.7 Finger Stick Blood Glucose 547 Laboratory Tests Past 24 Hrs 05/20/18 05/20/18 05/20/18 20:26 20:30 20:34 WBC 13.5 H RBC 3.71 L Hgb 11.3 L Hct 35.6 L MCV 96.0 MCH 30.5 MCHC 31.7 L RDW 16.2 H RDW Differential 56.4 H Plt Count 333 MPV 10.4 Immature Gran % (Auto) 0.300 Neut % (Auto) 91.1 H Lymph % (Auto) 6.1 L Carson % (Auto) 2.4 Eos % (Auto) 0.0 Baso % (Auto) 0.1 Absolute Neuts (auto) 12.3 H Absolute Lymphs (auto) 0.82 L Total Counted Not Reportable Sodium 135 L Potassium 4.9 Chloride 97 L Carbon Dioxide 14.0 L Anion Gap 24 H BUN 48 H Creatinine 1.76 H Estim Creat Clear Calc 17.41 Est GFR (MDRD) Af Amer 36 L Est GFR (MDRD) Non-Af 29 L BUN/Creatinine Ratio 27.3 H Glucose 590 H* Hemoglobin A1c Calcium 9.6 Magnesium 2.7 H Troponin I 0.029 Acetone Level SMALL H 05/20/18 05/20/18 20:34 22:30 WBC RBC Hgb Hct MCV MCH MCHC RDW RDW Differential Plt Count MPV Immature Gran % (Auto) Neut % (Auto) Lymph % (Auto) Carson % (Auto) Eos % (Auto) Baso % (Auto) Absolute Neuts (auto) Absolute Lymphs (auto) Total Counted Sodium Pending Potassium Pending Chloride Pending Carbon Dioxide Pending Anion Gap Pending BUN Pending Creatinine Pending Estim Creat Clear Calc Est GFR (MDRD) Af Amer Pending Est GFR (MDRD) Non-Af Pending BUN/Creatinine Ratio Pending Glucose Pending Hemoglobin A1c 10.7 H Calcium Pending Magnesium Troponin I Acetone Level POC Glucose 05/20/18 05/20/18 21:46 20:56 POC Glucose > 500 H* > 500 H* Assessment/Plan This is an 82 years old female patient presented to the medicine because of nausea, vomiting and diarrhea and she was found to have blood sugar of 571 with serum bicarb of 11 and anion gap of 22 consistent with diabetic ketoacidosis and also found to have acute kidney injury and new EKG changes. #1 diabetic ketoacidosis: Patient is on insulin pump, has been working fine according to the daughter. She was admitted around 1 year ago for DKA. Serum bicarb is 11, anion gap is 22. She was started on IV insulin drip. Her vital signs are stable. EKG is reviewed as above. Plan: Admit to ICU, complete bedrest, initiate DKA protocol with IV fluids, keep on n.p.o., IV insulin drip, ICU electrolyte replacement protocol, urinalysis, chest x-ray, stool for C. difficile, stool for enteric pathogens, repeat CBC and BMP tomorrow morning, critical care consult, PT OT evaluation and treatment. #2 acute kidney injury: Secondary to above. Patient is severely dehydrated, dry mucous membranes. Her vital signs are stable. Baseline kidney function is normal. Plan: IV fluids per protocol, input output chart, repeat BMP tomorrow morning. #3 abnormal EKG: EKG revealed first-degree AV block, normal sinus rhythm, significant ST segment depression in leads II, V3, V4, V5 and V6. No evidence of acute C elevation. First troponin is negative. Plan: Cardiac monitoring, serial cardiac enzymes, repeat EKG tomorrow morning, cardiology consult. Dr. Tay was notified by ER physician and he will see the patient tomorrow morning in consultation. #4 uncontrolled type 1 diabetes mellitus: On insulin pump for at least 30 years. Hemoglobin A1c is 10.7. Plan as above. #5 paroxysmal atrial fibrillation: Rate is controlled, blood pressure stable, continue amiodarone and Coreg for rate control, hold Eliquis for now. #6 hypertension: Blood pressure stable, continue Coreg, hold Lasix. #7 chronic diastolic CHF: Clinically stable, compensated, plan to continue Coreg, hold Lasix, monitor volume status. #8 hypothyroidism: Continue levothyroxine. #9 DVT prophylaxis: SCDs. This note was generated with [employer] dictation software. It may contain incorrect words, spelling, and punctuation that were not noted in checking the note before signing. Code Visit Inpatient E&M: 77705 Init Hosp L3
[2018-05-20 22:47] VITALS: BP 106/56; PULSE 83; RESP 13; O2SAT 98
[2018-05-20 22:51] LABS: Bedside Glucose > 500 mg/dL (70-110)
[2018-05-20 23:07] LABS: Anion Gap 22 (5-15); BUN 46 mg/dL (7-18); BUN/Creat Ratio 27.2 RATIO (10-20); Calcium,Total 8.7 mg/dL (8.5-10.1); Chloride 105 mmol/L (98-107); Creatinine, Serum 1.69 mg/dL (0.55-1.02); EST Glomerular Filtration Rate 31 mL/min (>60); Est Glom Filt Rate - Afr Amer 37 mL/min (>60); Estimated Creatinine Clearance 18.13 ml/min; Glucose 571 mg/dL (74-106); Potassium 4.7 mmol/L (3.5-5.1); Sodium Level 138 mmol/L (136-145)
[2018-05-20] MEDS: Aspirin 81 MG TAB.CHEW 324 MG PO (23:08)
[2018-05-20 23:25] LABS: Bedside Glucose 490 mg/dL (70-110)
--- NOTE | 2018-05-20 23:46 | ED.VISSUMM ---
- ER Visit Summary Date of Service: 05/20/18 Chief Complaint: Vomiting and diarrhea History of Present Illness: The patient is a [address] Russell. Patient reports that she has vomiting and diarrhea that began to day. She is vomited multiple times without blood. She had multiple episodes of diarrhea. No blood in her stools or black tarry stools. She does report that she was around a [employer] student who is sick. She denies any abdominal pain. Patient does have a history of insulin-dependent diabetes mellitus and has an insulin pump. She reports that it will not work today. On review of systems she complains of generalized weakness. She denies any fever, chills, chest pain, shortness of breath, or other complaints. Physical Examination: Vitals: Stable. Afebrile. General: Well-nourished and well-developed. Head: Normocephalic atraumatic. Neck: Supple, no lymphadenopathy. No JVD. Nontender. Cardiovascular: Regular rate and rhythm. No murmurs. Respiratory: No respiratory distress. Clear to auscultation bilaterally. Abdominal: Soft, nontender, nondistended, normal bowel sounds. No guarding, rebound, or peritoneal signs. Back: Nontender. Extremities: Nontender, no edema. Skin: Normal color, no rash. Neurologic: Alert and oriented ?3. Cranial nerves II through XII are intact. Normal strength and sensation. Psych: Normal affect. Test Results: EKG is sinus at 83 with first-degree AV block and inferolateral ST depression. The depression is new from March of this year. Initial troponin is 0.029. Chem-7 is marked for sodium 135,, chloride 97, bicarb of 14, glucose of 590, BUN 48, creatinine 1.76. CBC is more for a white count of 13.5 with 91 segmented neutrophils and 6 lymphocytes, H&H 11.3 and 35.6. Magnesium is 2.7. Hemoglobin A1c is 10.7. She has small serum ketones. Emergency Department Course and Treatment: Patient had an IV placed. She was given Zofran and insulin IV. She was given aspirin p.o. She is resting comfortably. She continues to deny chest pain or shortness of breath. Treatment Plan: Patient was discussed with Dr. Faulkner and Dr. Tay. She will be admitted to the hospital for further relation and treatment. Disposition: Admitted in improved condition. Impression: 1. DKA. 2. Ischemic EKG changes. 3. Vomiting/diarrhea. 4. Coagulopathy on Eliquis. 5. ORAL score of 3. 6. Critical care time 30 minutes. This note was generated with [employer] dictation software. It may contain incorrect words, spelling, and punctuation that were not noted in review of the chart prior to signing
--- NOTE | 2018-05-20 23:50 | ED.DCSUM_ITS ---
- ER Visit Summary Date of Service: 05/20/18 Chief Complaint: Vomiting and diarrhea History of Present Illness: The patient is a [address] Russell. Patient reports that she has vomiting and diarrhea that began to day. She is vomited multiple times without blood. She had multiple episodes of diarrhea. No blood in her stools or black tarry stools. She does report that she was around a [id number] student who is sick. She denies any abdominal pain. Patient does have a history of insulin-dependent diabetes mellitus and has an insulin pump. She reports that it will not work today. On review of systems she complains of generalized weakness. She denies any fever, chills, chest shayan n, shortness of breath, or other complaints. Physical Examination: Vitals: Stable. Afebrile. General: Well-nourished and well-developed. Head: Normocephalic atraumatic. Neck: Supple, no lymphadenopathy. No JVD. Nontender. Cardiovascular: Regular rate and rhythm. No murmurs. Respiratory: No respiratory distress. Clear to auscultation bilaterally. Abdominal: Soft, nontender, nondistended, normal bowel sounds. No guarding, rebound, or peritoneal signs. Back: Nontender. Extremities: Nontender, no edema. Skin: Normal color, no rash. Neurologic: Alert and oriented ?3. Cranial nerves II through XII are intact. Normal strength and sensation. Psych: Normal affect. Test Results: EKG is sinus at 83 with first-degree AV block and inferolateral ST depression. The depression is new from March of this year. Initial troponin is 0.029. Chem-7 is marked for sodium 135,, chloride 97, bicarb of 14, glucose of 590, BUN 48, creatinine 1.76. CBC is more for a white count of 13.5 with 91 segmented neutrophils and 6 lymphocytes, H&H 11.3 and 35.6. Magnesium is 2.7. Hemoglobin A1c is 10.7. She has small serum ketones. Emergency Department Course and Treatment: Patient had an IV placed. She was given Zofran and insulin IV. She was given aspirin p.o. She is resting comfortably. She continues to deny chest pain or shortness of breath. Treatment Plan: Patient was discussed with Dr. Faulkner and Dr. Tay. She will be admitted to the hospital for further relation and treatment. Disposition: Admitted in improved condition. Impression: 1. DKA. 2. Ischemic EKG changes. 3. Vomiting/diarrhea. 4. Coagulopathy on Eliquis. 5. ORAL score of 3. 6. Critical care time 30 minutes. This note was generated with [employer] dictation software. It may contain incorrect words, spelling, and punctuation that were not noted in review of the chart prior to signing
[2018-05-21] VITALS (33 sets, daily range): BP systolic 96–154; BP diastolic 34–100; PULSE 68–86; RESP 11–21; TEMP 36.6–37.2; O2SAT 94–100; BMI 18.0
[2018-05-21 00:15] LABS: Bedside Glucose 449 mg/dL (70-110)
--- NOTE | 2018-05-21 00:18 | RAD_ITS ---
STUDY: X-RAY CHEST REASON FOR EXAM: Female, 82 years old. DKA AND WEAKNESS TECHNIQUE: Single AP portable view of the chest. COMPARISON: None. FINDINGS: The lungs are clear and expanded. There is no demonstrated pleural abnormality. Normal size heart. Normal mediastinum and jarrell. Normal visualized pulmonary arteries. There is atherosclerotic calcification of the aortic arch with tortuosity. There is a mild dextroscoliosis of the thoracic spine. There is degenerative osteoarthritis of the bilateral shoulders. There is no demonstrated abnormality of the visualized soft tissue structures of the upper abdomen. RAD/Chest 1 View (Portable) IMPRESSION: Degenerative changes, as described above. No demonstrated acute cardiopulmonary process. Electronically Signed: Adrián Muhammad, at 7:47 EST Tel , Service support ,
[2018-05-21 00:31] LABS: Sodium Level 135 mmol/L (136-145)
[2018-05-21] MEDS: 0.9% Normal Saline 1,000 ML 250 ML IV (00:40)
[2018-05-21 02:20] LABS: Bedside Glucose 389 mg/dL (70-110)
[2018-05-21 02:20] LABS: Bedside Glucose 358 mg/dL (70-110)
[2018-05-21 03:35] LABS: Mucous, Urine 0 SEEN /hpf (<or=2+); Red Blood Cells-Urine 0 SEEN /hpf (0-5)
[2018-05-21 03:38] LABS: Color, Urine Yellow (Yellow); Glucose, Dipstick 1000 mg/dl (Normal); Ketone-Dipstick 50 mg/dl (Negative); Leukocyte Esterase-Dipstick 500 /ul (Negative); Nitrite-Dipstick Negative (Negative); Occult Blood-Urine 10 /ul (Negative); Protein-Dipstick 100 mg/dl (Negative); Specific Gravity, Urine 1.025 (1.002-1.030); Urine Bilirubin Dipstick Negative (Negative); Urine Clarity Cloudy (Clear); Urine Urobilinogen Normal (Normal)
[2018-05-21 03:44] LABS: International Normalized Ratio 1.2; Prothrombin Time (Protime)PT. 14.5 SECONDS (11.7-14.9)
[2018-05-21 03:45] LABS: Partial Thromboplast Time 26.1 Seconds (24.1-36.2)
[2018-05-21 03:49] LABS: Anion Gap 21 (5-15); BUN 48 mg/dL (7-18); BUN/Creat Ratio 23.9 RATIO (10-20); Calcium,Total 8.4 mg/dL (8.5-10.1); Chloride 105 mmol/L (98-107); Creatinine, Serum 2.01 mg/dL (0.55-1.02); EST Glomerular Filtration Rate 25 mL/min (>60); Est Glom Filt Rate - Afr Amer 31 mL/min (>60); Estimated Creatinine Clearance 15.49 ml/min; Glucose 417 mg/dL (74-106); Potassium 3.9 mmol/L (3.5-5.1); Sodium Level 143 mmol/L (136-145)
[2018-05-21 03:51] LABS: Squamous Epithelial Cells - UA 0-5 SEEN /hpf (5-10); Transitional Epithelial - Ur 0-5 SEEN /hpf (0-5)
[2018-05-21 03:52] LABS: Amorphous Sediment 1+
[2018-05-21 03:55] LABS: White Blood Cells 25-50 SEEN /hpf (0-5)
[2018-05-21 03:58] LABS: Bacteria 4+ /hpf (None Seen); Hyaline Cast 25-50 SEEN /lpf (0-5)
[2018-05-21 04:15] LABS: Bedside Glucose 304 mg/dL (70-110)
[2018-05-21 04:26] LABS: Bedside Glucose 281 mg/dL (70-110)
[2018-05-21] MEDS: Levothyroxine 75 MCG Tablet PO (05:06)
[2018-05-21 05:15] LABS: Bedside Glucose 233 mg/dL (70-110)
[2018-05-21] MEDS: Dext 5%-0.45% NS 1,000 ML 150 ML IV ×2 (05:26→13:02)
[2018-05-21 05:45] LABS: Absolute Lymphocyte Count 1.44 X10^3/ul (0.83-4.51); Absolute Neutrophil Count 11.9 X10^3/uL (2.0-7.7); Basophil# 0.01 X10^3/uL; Basophil% 0.1 % (0-1); Hematocrit 34.4 % (37-47); Lymphocyte # 1.44 X10^3/ul (4.0); Lymphocyte % 10.1 % (19-41); Mean Corpuscular Hgb 30.1 pg (27.0-32.0); Mean Platelet Vol. 10.1 fl (6.2-12.0); Monocyte# 0.86 X10^3/uL; Neutrophil # 11.91 X10^3/uL (2.7-7.7); Neutrophil % 83.3 % (47-70); POSITIVE COUNT NO; POSITIVE DIFFERENTIAL NO; POSITIVE MORPHOLOGY NO; Platelet Count 315 K/mm3 (150-450); Red Blood Count 3.66 M/mm3 (4.2-5.4); White Blood Count 14.3 K/mm3 (4.4-11.0)
[2018-05-21 05:50] LABS: Anion Gap 15 (5-15); BUN 49 mg/dL (7-18); BUN/Creat Ratio 25.4 RATIO (10-20); Calcium,Total 8.6 mg/dL (8.5-10.1); Chloride 107 mmol/L (98-107); Creatinine, Serum 1.93 mg/dL (0.55-1.02); EST Glomerular Filtration Rate 26 mL/min (>60); Est Glom Filt Rate - Afr Amer 32 mL/min (>60); Estimated Creatinine Clearance 16.13 ml/min; Glucose 282 mg/dL (74-106); Potassium 4.1 mmol/L (3.5-5.1); Sodium Level 143 mmol/L (136-145)
--- NOTE | 2018-05-21 05:55 | EKG12_ITS ---
Test Reason : AM EKG Blood Pressure : / mmHG Vent. Rate : 077 BPM Atrial Rate : 077 BPM P-R Int : 290 ms QRS Dur : 094 ms QT Int : 416 ms P-R-T Axes : 084 058 183 degrees QTc Int : 470 ms Sinus rhythm with 1st degree A-V block ST & T wave abnormality, consider anterolateral ischemia Prolonged QT Abnormal ECG Confirmed by EDWIN AGUILERA, BERTHA ([id number]), editor map PAMELA HAYES ([id number]) on 05/24/2018 1:20:14 PM Referred By: Rah Faulkner Confirmed By:BERTHA PINEDA MD
[2018-05-21 06:20] LABS: Bedside Glucose 278 mg/dL (70-110)
--- NOTE | 2018-05-21 07:00 | PCM.CON.CC ---
Reason for Consult Date of Consultation: 05/21/18 Reason for Consultation: Diabetic ketoacidosis History of Present Illness: The patient is an 82-year-old female, with a history as outlined below, who initially presented to the emergency department on May 20 with nausea, vomiting and diarrhea. The patient is a known type I diabetic and follows with [facility] of endocrinology. She was last seen in the endocrinology office on May 02. At that office visit, the following was noted: Patient has incorrect date and time in her insulin pump, These notes she is getting wrong basal rates during the day and night. However she also has no date and time set in her glucometer. When questioned about these issues she states she changed the batteries in both items and this must be when the date and time changed. The patient also follows in the pulmonary medicine clinic for mild intermittent asthma. She also follows in the cardiology clinic due to a history of paroxysmal atrial fibrillation, chronic heart failure with preserved ejection fraction and valvular heart disease. This morning, the patient reports improvement in her symptoms. She denies the presence of abdominal pain, nausea or vomiting. Per nursing report, her stools are now formed. She denies the presence of shortness of breath or chest pain. On presentation to the emergency department, the patient was noted to be afebrile and hemodynamically stable. She was maintaining appropriate oxygen saturations on room air. Laboratory evaluation revealed a elevated white blood cell count to 13,000. Coagulation profile was within normal limits. Chemistry profile revealed a serum bicarbonate of 11.0 along with evidence of acute kidney injury with a creatinine of 1.69. Glucose was elevated to 571. Anion gap was increased to 22. Troponin was initially noted to be 0.029. Urinalysis was positive for leukocyte esterase, 25-50 white blood cells and 4+ urine bacteria. Small serum acetone level was noted. The patient received supplemental IV fluid hydration and was subsequently placed on a continuous insulin infusion. She was subsequently admitted to the medical intensive care unit for ongoing management. Overnight, the patient's troponin levels have steadily increased. Her most recent troponin level was noted to be 4.1. Cardiology has been consulted to evaluate the patient. Past Medical History Past Medical History (Chronic Problems): Chronic Problems (Last Updated 05/20/18 @ 22:39 by Rah Faulkner MD) HLD (hyperlipidemia) (Chronic) TIA (transient ischemic attack) (Chronic) Essential (primary) hypertension (Chronic) Chronic diastolic (congestive) heart failure (Chronic) Aortic stenosis (Chronic) Mild to moderate per echo 11/16/17 done @ [facility]: see report for measurements Pulmonic valve regurgitation (Chronic) Moderate per echo 11/16/17 Done @ [facility] Diabetes type 1, controlled (Chronic) dx : last exacerbation : dka : years ago hypoglycemic episode : 02/06 er visit :years ago Asthma (Chronic) Secondary pulmonary arterial hypertension (Chronic) RVSP 53mm hg per echo 11/16/2017 done @ [facility] Nonrheumatic mitral (valve) insufficiency (Chronic) Moderate to severe regurgitation per echo 11/16/2017 done @ [facility] Paroxysmal atrial fibrillation (Chronic) DVT (deep venous thrombosis) (Chronic) Right-sided heart failure (Chronic) Uncontrolled type 1 diabetes mellitus with complication, without long-term current use of insulin (Chronic) Doing fairly well. Appetite is fairly good. She reports no issues. Swelling in legs sl improved. Medical History: Medical History (Last Updated 05/20/18 @ 22:39 by Rah Faulkner MD) Essential (primary) hypertension (Chronic) I10 Chronic diastolic (congestive) heart failure (Chronic) I50.32 Aortic stenosis (Chronic) I35.0 Mild to moderate per echo 11/16/17 done @ [facility]: see report for measurements Pulmonic valve regurgitation (Chronic) I37.1 Moderate per echo 11/16/17 Done @ [facility] Diabetes type 1, controlled (Chronic) E10.9 dx : last exacerbation : dka : years ago hypoglycemic episode : 02/06 er visit :years ago Asthma (Chronic) J45.909 Secondary pulmonary arterial hypertension (Chronic) I27.21 RVSP 53mm hg per echo 11/16/2017 done @ [facility] Nonrheumatic mitral (valve) insufficiency (Chronic) I34.0 Moderate to severe regurgitation per echo 11/16/2017 done @ [facility] Paroxysmal atrial fibrillation (Chronic) I48.0 DVT (deep venous thrombosis) (Chronic) I82.409 Right-sided heart failure (Chronic) I50.810 Uncontrolled type 1 diabetes mellitus with complication, without long-term current use of insulin (Chronic) E10.8, E10.65 Doing fairly well. Appetite is fairly good. She reports no issues. Swelling in legs sl improved. Bone spur M77.9 Cataracts, bilateral H26.9 Tricuspid valve regurgitation, nonrheumatic I36.1 moderate per echo 11/16/2017 done @ [facility] Allergies No Known Allergies Allergy (Verified 05/20/18 19:50) Home Medications: Ambulatory Orders Medication Instructions Recorded apixaban 2.5 mg tablet 2.5 mg PO BID 07/22/17 furosemide 40 mg tablet 40 mg PO DAILY 09/06/17 Insulin Lispro [Humalog] See Protocol SC CONT 09/25/17 carvedilol 3.125 mg tablet 3.125 mg PO BID #180 tab 10/22/17 Levothyroxine Sodium [Synthroid] 75 mcg PO SUSA 02/13/18 Amiodarone HCl 100 mg PO DAILY 05/20/18 Furosemide 20 mg PO DAILY 05/20/18 Levothyroxine [Synthroid] 50 mcg PO MOTUWETHFR 05/20/18 Surgical History: - - Tonsillectomy, insulin pump. 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 Maternal Family History: Family History (Last Reviewed 05/02/18 @ 15:35 by Camille Escalante) Father Kidney disease Cancer History Items: - - Patient denies any market maternal family history including heart disease, diabetes, cancer and states that her mother passed at age 94. Paternal Family History: Family History (Last Reviewed 05/02/18 @ 15:35 by Camille Escalante) Father Kidney disease Cancer History Items: Cancer, Heart Disease, Renal Disease Review of Systems Constitutional: Reports: Malaise, Weakness Eyes: Denies: Blurred vision, Double vision HEENT: Denies: Head Aches, Sinus Congestion, Sinus Drainage Cardiovascular: Denies: Chest Pain, Palpitations Respiratory: Denies: Cough, Shortness of breath at rest, Sputum production Gastrointestinal: Reports: Diarrhea, Nausea, Vomiting Genitourinary: Denies: Dysuria, Frequency Musculoskeletal: Denies: Joint Pain, Joint Tenderness Skin: Denies: Rash, Wounds Neurological: Denies: Numbness, Tingling, Focal weakness Psychiatric: Denies: Anxiety, Depression, Homicidal Ideations, Suicidal Ideations Hematologic/ Lymphatic: Denies: Easy Bruising, Easy Bleeding Objective: The patient's most recent lab work, culture data and imaging studies have all been personally reviewed. Prior surface echocardiogram from March 2017 revealed normal LV size and thickness with mild global hypokinesis of the LV. Ejection fraction was noted to be 50-55%. There was mild to moderate mitral valve insufficiency and a right ventricular systolic pressure estimated to be 37 mmHg. - Physical Exam General: Alert, Cooperative, No apparent distress HEENT: Atraumatic, PERRLA, Normocephalic Oral: Dry Mucosa Neck: Supple, No Nodes, Trachea Midline Lungs: Normal air movement, No rhonchi, No wheeze, No rales Cardiovascular: Regular rate, Regular Rhythm, Normal S1, Normal S2, Murmur Abdomen: Bowel Sounds Present, Soft, Non Tender Extremities: No clubbing, No cyanosis, No edema Skin: No breakdown Musculoskeletal: No Tenderness to Palpation of Joints or Extremities Lymphatic: No Cervical, Supraclavicular, or Inguinal Adenopathy Neurological: Cranial nerves II-XII grossly intact, Neuro grossly intact Psych/Mental Status: Normal Affect, Appropriate Vital Signs Temp Pulse Resp BP Pulse Ox 36.9 C 79 19 H 113/47 L 96 05/21/18 04:00 05/21/18 06:00 05/21/18 06:00 05/21/18 06:00 05/21/18 06:00 Oxygen Delivery Method Room Air Weight: 98 lb 8.746 oz Body Mass Index (BMI) 18.0 Finger Stick Blood Glucose 278 Intake and Output for Last 24 Hours 05/19/18 05/20/18 05/21/18 23:59 23:59 23:59 Intake Total 236 / 236 Output Total 50 / 50 Balance 186 / 186 Microbiology Past 72 Hours 05/21/18 00:40 C. difficile DNA Amplification - Final Stool Laboratory Tests Past 24 Hrs 05/20/18 05/20/18 05/20/18 20:26 20:30 20:34 WBC 13.5 H RBC 3.71 L Hgb 11.3 L Hct 35.6 L MCV 96.0 MCH 30.5 MCHC 31.7 L RDW 16.2 H RDW Differential 56.4 H Plt Count 333 MPV 10.4 Immature Gran % (Auto) 0.300 Neut % (Auto) 91.1 H Lymph % (Auto) 6.1 L [place] % (Auto) 2.4 Eos % (Auto) 0.0 Baso % (Auto) 0.1 Absolute Neuts (auto) 12.3 H Absolute Lymphs (auto) 0.82 L Total Counted Not Reportable PT INR APTT Sodium 135 L Potassium 4.9 Chloride 97 L Carbon Dioxide 14.0 L Anion Gap 24 H BUN 48 H Creatinine 1.76 H Estim Creat Clear Calc 17.41 Est GFR (MDRD) Af Amer 36 L Est GFR (MDRD) Non-Af 29 L BUN/Creatinine Ratio 27.3 H Glucose 590 H* Hemoglobin A1c Calcium 9.6 Magnesium 2.7 H Troponin I 0.029 Urine Color Urine Clarity Urine pH Ur Specific [place] Urine Protein Urine Glucose (UA) Urine Ketones Urine Occult Blood Urine Nitrite Urine Bilirubin Urine Urobilinogen Ur Leukocyte Esterase Urine RBC Urine WBC Ur Squamous Epith Cells Ur Transition Epith Cell Amorphous Sediment Urine Bacteria Hyaline Casts Urine Mucus Acetone Level SMALL H 05/20/18 05/20/18 05/21/18 20:34 22:30 01:20 WBC RBC Hgb Hct MCV MCH MCHC RDW RDW Differential Plt Count MPV Immature Gran % (Auto) Neut % (Auto) Lymph % (Auto) [place] % (Auto) Eos % (Auto) Baso % (Auto) Absolute Neuts (auto) Absolute Lymphs (auto) Total Counted PT 14.5 INR 1.2 APTT 26.1 Sodium 138 Potassium 4.7 Chloride 105 Carbon Dioxide 11.0 L Anion Gap 22 H BUN 46 H Creatinine 1.69 H Estim Creat Clear Calc 18.13 Est GFR (MDRD) Af Amer 37 L Est GFR (MDRD) Non-Af 31 L BUN/Creatinine Ratio 27.2 H Glucose 571 H* Hemoglobin A1c 10.7 H Calcium 8.7 Magnesium Troponin I Urine Color Urine Clarity Urine pH Ur Specific [place] Urine Protein Urine Glucose (UA) Urine Ketones Urine Occult Blood Urine Nitrite Urine Bilirubin Urine Urobilinogen Ur Leukocyte Esterase Urine RBC Urine WBC Ur Squamous Epith Cells Ur Transition Epith Cell Amorphous Sediment Urine Bacteria Hyaline Casts Urine Mucus Acetone Level 05/21/18 05/21/18 05/21/18 01:20 03:25 05:20 WBC RBC Hgb Hct MCV MCH MCHC RDW RDW Differential Plt Count MPV Immature Gran % (Auto) Neut % (Auto) Lymph % (Auto) [place] % (Auto) Eos % (Auto) Baso % (Auto) Absolute Neuts (auto) Absolute Lymphs (auto) Total Counted PT INR APTT Sodium 143 143 Potassium 3.9 4.1 Chloride 105 107 Carbon Dioxide 17.0 L 21.0 Anion Gap 21 H 15 BUN 48 H 49 H Creatinine 2.01 H 1.93 H Estim Creat Clear Calc 15.49 16.13 Est GFR (MDRD) Af Amer 31 L 32 L Est GFR (MDRD) Non-Af 25 L 26 L BUN/Creatinine Ratio 23.9 H 25.4 H Glucose 417 H 282 H Hemoglobin A1c Calcium 8.4 L 8.6 Magnesium Troponin I 0.555 H Urine Color Yellow Urine Clarity Cloudy Urine pH 6.0 Ur Specific [place] 1.025 Urine Protein 100 H Urine Glucose (UA) 1000 H Urine Ketones 50 H Urine Occult Blood 10 H Urine Nitrite Negative Urine Bilirubin Negative Urine Urobilinogen Normal Ur Leukocyte Esterase 500 H Urine RBC 0 SEEN Urine WBC 25-50 SEEN Ur Squamous Epith Cells 0-5 SEEN Ur Transition Epith Cell 0-5 SEEN Amorphous Sediment 1+ Urine Bacteria 4+ Hyaline Casts 25-50 SEEN Urine Mucus 0 SEEN Acetone Level 05/21/18 05/21/18 05:20 05:20 WBC 14.3 H RBC 3.66 L Hgb 11.0 L Hct 34.4 L MCV 94.0 MCH 30.1 MCHC 32.0 RDW 16.0 H RDW Differential 55.0 H Plt Count 315 MPV 10.1 Immature Gran % (Auto) 0.500 Neut % (Auto) 83.3 H Lymph % (Auto) 10.1 L [place] % (Auto) 6.0 Eos % (Auto) 0.0 Baso % (Auto) 0.1 Absolute Neuts (auto) 11.9 H Absolute Lymphs (auto) 1.44 Total Counted Not Reportable PT INR APTT Sodium Potassium Chloride Carbon Dioxide Anion Gap BUN Creatinine Estim Creat Clear Calc Est GFR (MDRD) Af Amer Est GFR (MDRD) Non-Af BUN/Creatinine Ratio Glucose Hemoglobin A1c Calcium Magnesium Troponin I 4.180 H* Urine Color Urine Clarity Urine pH Ur Specific [place] Urine Protein Urine Glucose (UA) Urine Ketones Urine Occult Blood Urine Nitrite Urine Bilirubin Urine Urobilinogen Ur Leukocyte Esterase Urine RBC Urine WBC Ur Squamous Epith Cells Ur Transition Epith Cell Amorphous Sediment Urine Bacteria Hyaline Casts Urine Mucus Acetone Level POC Glucose 05/21/18 05/21/18 05/21/18 06:15 05:09 04:19 POC Glucose 278 H 233 H 281 H 05/21/18 05/21/18 05/21/18 03:08 01:59 00:50 POC Glucose 304 H 358 H 389 H 05/21/18 05/20/18 05/20/18 00:10 23:17 22:43 POC Glucose 449 H 490 H* > 500 H* 05/20/18 05/20/18 21:46 20:56 POC Glucose > 500 H* > 500 H* Assessment/Plan RECOMMENDATIONS: 1. Obtain repeat UA and urine culture. 2. Continue to trend troponins, pending evaluation by cardiology. 3. Obtain echocardiogram. 4. Start antibiotics to cover for presumptive urinary source of infection. 5. Continue current management per DKA protocol. IMPRESSIONS: 1. Diabetic ketoacidosis The patient presented to the hospital in diabetic ketoacidosis, which could be multifactorial in etiology and related to questionable issues noted previously with her insulin pump in conjunction with what appears to be a urinary tract source of infection. Continue current management per DKA protocol with supplemental IV fluid hydration and continuous insulin infusion until anion gap has been closed x2. We will plan to check a urine culture and start the patient empirically on antibiotics. 2. Acute kidney injury Likely prerenal in etiology. Anticipate improvement with volume expansion. 3. Troponin elevation Cardiology has been consulted to evaluate the patient. We will continue to trend troponins. Echocardiogram is pending. 4. Mild intermittent asthma/paroxysmal atrial fibrillation/chronic heart failure with preserved ejection fraction/valvular heart disease/hypothyroidism Complicates care, management, recovery and prognosis. Continue home medications as indicated. This note was generated with [employer] dictation software. It may contain incorrect words, spelling, and punctuation that were not noted in checking the note before signing. DISPOSITION: As the patient's anion gap has been closed now x2, and she has no further ICU needs, will sign off. Please call with any additional questions. Code Visit Inpatient E&M: 10199 Init Hosp L3
--- NOTE | 2018-05-21 07:01 | PCM.PROGNOTE ---
Subjective: Ms. 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 Symptoms had started that morning. She denied chest pain, shortness of breath, palpitations or lightheadedness. She denied cough. Vital signs in the emergency room at presentation were temp 97.5, heart rate 89, blood pressure 126/57, respiratory rate 13 and pulse ox was 99-100% on room air. White blood cell count was elevated at 13.5 with 91% neutrophils. Hemoglobin was 11.3 with normochromic normocytic indices and the platelets were 333,000. Serum bicarb was low at 11 and the BUN was 46 with a creatinine of 1.69. Random blood sugar was 571 and a hemoglobin A1c was 10.7. Troponin was 0.029. UA had 25-50 WBCs per high-power field with 4+ bacteria and 25-50 hyaline casts. Serum acetone was positive. An EKG showed normal sinus rhythm with a first-degree AV block and ST segment depression in leads II, V3, V4, V5 and V6. There was no ST elevation. When compared to an EKG done in March [address] segment depression was new. She was admitted to the intensive care unit with a diagnosis of diabetic ketoacidosis, acute renal failure, abnormal EKG and urinary tract infection. All events of the past 24 hours been reviewed. Afebrile since admission Vital signs are stable. She is 96-98% saturated on room air. She is not tachycardic. Fluid balance since admission is +186. She has had only 50 cc of urine. All lab was personally reviewed. White blood cell count today is 14.3 with a left shift. Hemoglobin is stable at 11 and platelets are within normal limits. The serum bicarb is 21 and the anion gap is closed at 15. BUN is 49 and the creatinine is 1.93, up from 1.69 at admission. The third troponin was 4.18. Urine culture was not collected. Current blood sugar is 269 and his been steadily coming down. Review of urine cultures done in January and March show a pansensitive E. coli and Proteus mirabilis which is resistant to nitrofurantoin and sensitive to everything else. I reviewed ADRIEN Burch's most recent notes on Ms Ambrosio - her last visit was 05/02. At that time she did not have the correct date or time programmed into the insulin pump. apparently she has been having periods of not talking and staring....PCP wanted to get a neurology consult....I do not see that she has seen either Dr. Ortiz or Dr. Zuly reynoso ut she had an MRI of the brain and also MRA of the head and neck in January of 2018. MRI of the brain showed no acute intracranial abnormality. 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 Echocardiogram done in March 2018 showed an elevated right ventricular systolic pressure of 52 and a normal EF. A stress test was done at the same time and was normal. She was in atrial fibrillation at the time. - Physical Exam General: Cooperative, No apparent distress, - - She is awake and sitting in a chair. She seems to be somewhat confused and is staring, slow to answer questions. Tells me that ADRIEN gave her a new insulin pump but, she has not tried it yet. HEENT: Atraumatic Oral: Dry Mucosa Neck: Supple, Trachea Midline Lungs: Clear to auscultation, Normal air movement Cardiovascular: Regular rate, Regular Rhythm, Normal S1, Normal S2, No murmurs, No rub noted, No Gallop Abdomen: Bowel Sounds Present, Soft, Non Tender, Non-Distended Extremities: No clubbing, No cyanosis, No edema Skin: No rashes, No breakdown Neurological: Cranial nerves II-XII grossly intact, Neuro grossly intact Psych/Mental Status: Flat Affect Vital Signs Temp Pulse Resp BP Pulse Ox 98.4 F 79 19 H 113/47 L 96 05/21/18 04:00 05/21/18 06:00 05/21/18 06:00 05/21/18 06:00 05/21/18 06:00 Oxygen Delivery Method Room Air Weight: 98 lb 8.746 oz Body Mass Index (BMI) 18.0 Finger Stick Blood Glucose 278 Intake and Output for Last 24 Hours 05/19/18 05/20/18 05/21/18 23:59 23:59 23:59 Intake Total 236 / 236 Output Total 50 / 50 Balance 186 / 186 Microbiology Past 72 Hours 05/21/18 00:40 C. difficile DNA Amplification - Final Stool Laboratory Tests Past 24 Hrs 05/20/18 05/20/18 05/20/18 20:26 20:30 20:34 WBC 13.5 H RBC 3.71 L Hgb 11.3 L Hct 35.6 L MCV 96.0 MCH 30.5 MCHC 31.7 L RDW 16.2 H RDW Differential 56.4 H Plt Count 333 MPV 10.4 Immature Gran % (Auto) 0.300 Neut % (Auto) 91.1 H Lymph % (Auto) 6.1 L [place] % (Auto) 2.4 Eos % (Auto) 0.0 Baso % (Auto) 0.1 Absolute Neuts (auto) 12.3 H Absolute Lymphs (auto) 0.82 L Total Counted Not Reportable PT INR APTT Sodium 135 L Potassium 4.9 Chloride 97 L Carbon Dioxide 14.0 L Anion Gap 24 H BUN 48 H Creatinine 1.76 H Estim Creat Clear Calc 17.41 Est GFR (MDRD) Af Amer 36 L Est GFR (MDRD) Non-Af 29 L BUN/Creatinine Ratio 27.3 H Glucose 590 H* Hemoglobin A1c Calcium 9.6 Magnesium 2.7 H Troponin I 0.029 Urine Color Urine Clarity Urine pH Ur Specific [place] Urine Protein Urine Glucose (UA) Urine Ketones Urine Occult Blood Urine Nitrite Urine Bilirubin Urine Urobilinogen Ur Leukocyte Esterase Urine RBC Urine WBC Ur Squamous Epith Cells Ur Transition Epith Cell Amorphous Sediment Urine Bacteria Hyaline Casts Urine Mucus Acetone Level SMALL H 05/20/18 05/20/18 05/21/18 20:34 22:30 01:20 WBC RBC Hgb Hct MCV MCH MCHC RDW RDW Differential Plt Count MPV Immature Gran % (Auto) Neut % (Auto) Lymph % (Auto) [place] % (Auto) Eos % (Auto) Baso % (Auto) Absolute Neuts (auto) Absolute Lymphs (auto) Total Counted PT 14.5 INR 1.2 APTT 26.1 Sodium 138 Potassium 4.7 Chloride 105 Carbon Dioxide 11.0 L Anion Gap 22 H BUN 46 H Creatinine 1.69 H Estim Creat Clear Calc 18.13 Est GFR (MDRD) Af Amer 37 L Est GFR (MDRD) Non-Af 31 L BUN/Creatinine Ratio 27.2 H Glucose 571 H* Hemoglobin A1c 10.7 H Calcium 8.7 Magnesium Troponin I Urine Color Urine Clarity Urine pH Ur Specific [place] Urine Protein Urine Glucose (UA) Urine Ketones Urine Occult Blood Urine Nitrite Urine Bilirubin Urine Urobilinogen Ur Leukocyte Esterase Urine RBC Urine WBC Ur Squamous Epith Cells Ur Transition Epith Cell Amorphous Sediment Urine Bacteria Hyaline Casts Urine Mucus Acetone Level 05/21/18 05/21/18 05/21/18 01:20 03:25 05:20 WBC RBC Hgb Hct MCV MCH MCHC RDW RDW Differential Plt Count MPV Immature Gran % (Auto) Neut % (Auto) Lymph % (Auto) [place] % (Auto) Eos % (Auto) Baso % (Auto) Absolute Neuts (auto) Absolute Lymphs (auto) Total Counted PT INR APTT Sodium 143 143 Potassium 3.9 4.1 Chloride 105 107 Carbon Dioxide 17.0 L 21.0 Anion Gap 21 H 15 BUN 48 H 49 H Creatinine 2.01 H 1.93 H Estim Creat Clear Calc 15.49 16.13 Est GFR (MDRD) Af Amer 31 L 32 L Est GFR (MDRD) Non-Af 25 L 26 L BUN/Creatinine Ratio 23.9 H 25.4 H Glucose 417 H 282 H Hemoglobin A1c Calcium 8.4 L 8.6 Magnesium Troponin I 0.555 H Urine Color Yellow Urine Clarity Cloudy Urine pH 6.0 Ur Specific [place] 1.025 Urine Protein 100 H Urine Glucose (UA) 1000 H Urine Ketones 50 H Urine Occult Blood 10 H Urine Nitrite Negative Urine Bilirubin Negative Urine Urobilinogen Normal Ur Leukocyte Esterase 500 H Urine RBC 0 SEEN Urine WBC 25-50 SEEN Ur Squamous Epith Cells 0-5 SEEN Ur Transition Epith Cell 0-5 SEEN Amorphous Sediment 1+ Urine Bacteria 4+ Hyaline Casts 25-50 SEEN Urine Mucus 0 SEEN Acetone Level 05/21/18 05/21/18 05:20 05:20 WBC 14.3 H RBC 3.66 L Hgb 11.0 L Hct 34.4 L MCV 94.0 MCH 30.1 MCHC 32.0 RDW 16.0 H RDW Differential 55.0 H Plt Count 315 MPV 10.1 Immature Gran % (Auto) 0.500 Neut % (Auto) 83.3 H Lymph % (Auto) 10.1 L [place] % (Auto) 6.0 Eos % (Auto) 0.0 Baso % (Auto) 0.1 Absolute Neuts (auto) 11.9 H Absolute Lymphs (auto) 1.44 Total Counted Not Reportable PT INR APTT Sodium Potassium Chloride Carbon Dioxide Anion Gap BUN Creatinine Estim Creat Clear Calc Est GFR (MDRD) Af Amer Est GFR (MDRD) Non-Af BUN/Creatinine Ratio Glucose Hemoglobin A1c Calcium Magnesium Troponin I 4.180 H* Urine Color Urine Clarity Urine pH Ur Specific [place] Urine Protein Urine Glucose (UA) Urine Ketones Urine Occult Blood Urine Nitrite Urine Bilirubin Urine Urobilinogen Ur Leukocyte Esterase Urine RBC Urine WBC Ur Squamous Epith Cells Ur Transition Epith Cell Amorphous Sediment Urine Bacteria Hyaline Casts Urine Mucus Acetone Level POC Glucose 05/21/18 05/21/18 05/21/18 06:15 05:09 04:19 POC Glucose 278 H 233 H 281 H 05/21/18 05/21/18 05/21/18 03:08 01:59 00:50 POC Glucose 304 H 358 H 389 H 05/21/18 05/20/18 05/20/18 00:10 23:17 22:43 POC Glucose 449 H 490 H* > 500 H* 05/20/18 05/20/18 21:46 20:56 POC Glucose > 500 H* > 500 H* Medical Necessity - Tobacco Use Smoking Status: Former smoker Assessment/Plan Impressions 1. Diabetic ketoacidosis 2. Controlled diabetes mellitus type 1 3. Possible urinary tract infection - had pyuria on a clean catch but, no culture was sent and she was not started on an antibiotic. Will straight cath for a repeat UA and urine culture. Has been started on Ceftriaxone. 4. N/V/D - due to DKA OR does she have a viral gastroenteritis 5. Hypothyroidism 6. Acute renal failure secondary to dehydration 7. Dehydration 8. Normochromic normocytic anemia with an increased RDW-etiology? 9. NSTEMI with history of normal stress test in March 2018. Has been seen by Dr. Tay and plans on cardiac cath Wednesday. 10. Dyslipidemia-refuses a statin Urine culture now Start Rocephin Repeat BMP is pending...if the AG has remained closed will start clear liquids.......D/W Dr. Gaxiola. Hesitate to have her start the insulin pump because she is not quite alert and seems a little confused. May need to start basal Long acting insulin and SSI at mealtimes. Enteric pathogen panel is pending Continue Rocephin for now and await the results of the UA done with straight cath She did not follow up with BJ in 1 week after her 05/02 visit as instructed. 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 She should see a neurologist about the episodes whe is having where she gets silent and does not speak.......she has been checked and is not hypoglycemic at those times. Will need to discuss with BJ when she is available for her opinion on whether she is OK to restart the pump. Code Visit Inpatient E&M: 01808 Subs Hosp L3
--- NOTE | 2018-05-21 07:06 | ECHOD_ITS ---
Reason For Study: Dyspnea/SOB Procedure This was a 2D Doppler, Color Flow transthoracic echocardiogram. Exam performed portable in ICU/CCU. Left Ventricle Normal LV size. Left ventricular systolic function is normal. The estimated ejection fraction is 60 %. Stage 3 diastolic dysfunction. No regional wall motion abnormalities noted. Right Ventricle Normal RV size. Normal systolic function. Atria Normal left atrium. Normal right atrium. Mitral Valve There is mild to moderate mitral annular calcification. Mild focal mitral valve calcification. Mild (1+) eccentric mitral valve insufficiency. Tricuspid Valve Normal tricuspid valve. Moderate (2+) tricuspid valve insufficiency. Pulmonary artery systolic pressure is 57 mmHg. Moderate pulmonary hypertension. Aortic Valve Trisinus/trileaflet aortic valve. Moderate focal aortic valve calcification. Mean aortic valve gradient 10 mmHg. Peak aortic valve gradient 19 mmHg. Calculated aortic valve area (continuity equation) is 1.6 cm2. Pulmonic Valve Normal pulmonic valve. Mild (1+) pulmonic valve insufficiency. Great Vessels Calcified aortic root. The pulmonary artery is normal size. The inferior vena cava is dilated. Pericardium/Pleural No pericardial effusion. MMode/2D Measurements & Calculations LVIDd: 3.6 cm IVSd: 1.0 cm LVOT diam: 1.9 cm LVIDs: 2.5 cm LVPWd: 0.98 cm LVOT area: 2.8 cm2 RVDd: 2.5 cm FS: 32.4 % Ao root diam: 2.7 cm LAV(MOD-bp): 27.7 ml LVAd ap4: 13.7 cm2 LAV(MOD-bp) Indexed: 19.7 ml/m2 EDV(MOD-sp4): 29.0 ml LAV(MOD-sp2): 19.5 ml EDV(sp4-el): 30.0 ml LAV(MOD-sp4): 32.4 ml LVAs ap4: 7.9 cm2 ESV(MOD-sp4): 11.8 ml ESV(sp4-el): 11.4 ml EF(MOD-sp4): 59.5 % EF(sp4-el): 61.9 % SV(MOD-sp4): 17.2 ml SV(sp4-el): 18.6 ml LA A4 area: 14.4 cm2 LA dimension(2D): 3.5 cm RA A4 area: 10.5 cm2 Time Measurements MV dec time: 0.10 sec Doppler Measurements & Calculations MV E max eagle: 137.4 cm/sec Lat Peak E' Eagle: 5.8 cm/sec Med Peak E' Eagle: 3.1 cm/sec MV A max eagle: 53.2 cm/sec E/E' lat: 23.7 E/E' med: 44.8 MV E/A: 2.6 MV V2 max: 165.4 cm/sec MV P1/2t max eagle: 164.8 cm/sec Ao V2 max: 217.5 cm/sec MV max P.9 mmHg MV P1/2t: 72.5 msec Ao max P.9 mmHg MV V2 mean: 74.9 cm/sec Ao V2 mean: 148.0 cm/sec MV mean P.9 mmHg MV dec slope: 665.3 cm/sec2 Ao mean P.6 mmHg MV V2 VTI: 32.4 cm MVA(P1/2t): 3.0 cm2 Ao V2 VTI: 46.4 cm MVA(VTI): 2.4 cm2 JULIA(I,D): 1.7 cm2 JULIA(V,D): 1.6 cm2 LV V1 max: 123.1 cm/sec SV(LVOT): 76.8 ml PA V2 max: 68.7 cm/sec LV V1 max P.1 mmHg LV V1 mean P.5 mmHg LV V1 mean: 88.8 cm/sec LV V1 VTI: 27.1 cm TR max eagle: 358.5 cm/sec TR max P.4 mmHg Interpretation Summary Normal LV size. Left ventricular systolic function is normal. The estimated ejection fraction is 60 %. Stage 3 diastolic dysfunction. Moderate focal aortic valve calcification. Calculated aortic valve area (continuity equation) is 1.6 cm2. Pulmonary artery systolic pressure is 57 mmHg. Moderate pulmonary hypertension. Ordering Physician: Ole Gaxiola D.O. Referring Physician: Elvis Russell Performed By: Prisca Cardenas RDCS, RVT
[2018-05-21 07:11] LABS: Bedside Glucose 269 mg/dL (70-110)
[2018-05-21] MEDS: Ceftriaxone 1 GM/50 ML BAG IV (08:11)
[2018-05-21 08:40] LABS: Bedside Glucose 229 mg/dL (70-110)
[2018-05-21 09:16] LABS: Bedside Glucose 244 mg/dL (70-110)
[2018-05-21 09:52] LABS: Anion Gap 8 (5-15); BUN 49 mg/dL (7-18); BUN/Creat Ratio 25.5 RATIO (10-20); Calcium,Total 8.1 mg/dL (8.5-10.1); Chloride 109 mmol/L (98-107); Creatinine, Serum 1.92 mg/dL (0.55-1.02); EST Glomerular Filtration Rate 27 mL/min (>60); Est Glom Filt Rate - Afr Amer 32 mL/min (>60); Estimated Creatinine Clearance 16.22 ml/min; Glucose 216 mg/dL (74-106); Potassium 3.5 mmol/L (3.5-5.1); Sodium Level 141 mmol/L (136-145)
[2018-05-21 10:26] LABS: Color, Urine Yellow (Yellow); Glucose, Dipstick 1000 mg/dl (Normal); Ketone-Dipstick 15 mg/dl (Negative); Leukocyte Esterase-Dipstick 25 /ul (Negative); Nitrite-Dipstick Negative (Negative); Occult Blood-Urine 10 /ul (Negative); Protein-Dipstick 30 mg/dl (Negative); Urine Bilirubin Dipstick Negative (Negative); Urine Clarity Clear (Clear); Urine Urobilinogen Normal (Normal)
[2018-05-21 10:37] LABS: T4 Free Direct 1.33 ng/dL (0.76-1.46); Thyroid Stim Hormone (TSH) 0.73 uIU/mL (0.358-3.74)
--- NOTE | 2018-05-21 10:47 | PCM.CONS.C ---
Reason for Consult Date of Consultation: 05/21/18 Reason for Consultation: Abnormal EKG findings and abnormal troponin History of Present Illness: The patient is a 82 year old F with past medical history consisting of valvular heart disease, paroxysmal atrial fibrillation who presented to the emergency room because of nausea, vomiting and diarrhea. Her illness started yesterday with persistent nausea and vomiting, has been throwing up since this morning, no aggravating or relieving factors associated with diarrhea with watery stool without blood as well as profound weakness. She denied abdominal pain, fever or chills. She denied chest pain, shortness of breath, palpitation, dizziness or lightheadedness. She denied cough or sputum production. She denies urinary symptoms. In the emergency room, her vital signs were stable. Her routine blood work was remarkable for mild leukocytosis, chronic anemia with stable hemoglobin, BUN of 48 and creatinine of 1.76. Her blood glucose was 590. Serum bicarb was 14 and anion gap was 24. Her hemoglobin A1c was 10.7. EKG revealed normal sinus rhythm with first-degree AV block, RI interval of 282 ms, ST segment depression in leads II, V3, V 4, V5 and V6, there was no evidence of acute ST elevation. Compared to EKG from March,, the ST segment depression is new and it is significant. Patient denies any chest pain. She is being admitted for diabetic ketoacidosis, acute kidney injury and abnormal EKG. she specifically denies any chest pain or paroxysmal nocturnal dyspnea. During this hospitalization her troponins have increased to 4. Her EKG is improved this morning Past Medical History Allergies/Adverse Reactions: Allergies No Known Allergies Allergy (Verified 05/20/18 19:50) Home Medications: Ambulatory Orders Medication Instructions Recorded apixaban 2.5 mg tablet 2.5 mg PO BID 07/22/17 furosemide 40 mg tablet 40 mg PO DAILY 09/06/17 Insulin Lispro [Humalog] See Protocol SC CONT 09/25/17 carvedilol 3.125 mg tablet 3.125 mg PO BID #180 tab 10/22/17 Levothyroxine Sodium [Synthroid] 75 mcg PO SUSA 02/13/18 Amiodarone HCl 100 mg PO DAILY 05/20/18 Furosemide 20 mg PO DAILY 05/20/18 Levothyroxine [Synthroid] 50 mcg PO MOTUWETHFR 05/20/18 Past Medical History (Chronic Problems): Chronic Problems (Last Updated 05/20/18 @ 22:39 by Rah Faulkner MD) HLD (hyperlipidemia) (Chronic) TIA (transient ischemic attack) (Chronic) Essential (primary) hypertension (Chronic) Chronic diastolic (congestive) heart failure (Chronic) Aortic stenosis (Chronic) Mild to moderate per echo 11/16/17 done @ [facility]: see report for measurements Pulmonic valve regurgitation (Chronic) Moderate per echo 11/16/17 Done @ [facility] Diabetes type 1, controlled (Chronic) dx : last exacerbation : dka : years ago hypoglycemic episode : 02/06 er visit :years ago Asthma (Chronic) Secondary pulmonary arterial hypertension (Chronic) RVSP 53mm hg per echo 11/16/2017 done @ [facility] Nonrheumatic mitral (valve) insufficiency (Chronic) Moderate to severe regurgitation per echo 11/16/2017 done @ [facility] Paroxysmal atrial fibrillation (Chronic) DVT (deep venous thrombosis) (Chronic) Right-sided heart failure (Chronic) Uncontrolled type 1 diabetes mellitus with complication, without long-term current use of insulin (Chronic) Doing fairly well. Appetite is fairly good. She reports no issues. Swelling in legs sl improved. Surgical History: - - Tonsillectomy, insulin pump. Psychiatric History: No pertinent psych hx PHOTO LAB SPECIALIST History: No pertinent PHOTO LAB SPECIALIST history - *Family History Sibling Family History: Family History (Last Reviewed 05/02/18 @ 15:35 by Camille Escalante) Father Kidney disease Cancer History Items: Heart Disease - Had some cardiac surgery. Maternal Family History: Family History (Last Reviewed 05/02/18 @ 15:35 by Camille Escalante) Father Kidney disease Cancer History Items: - - Patient denies any market maternal family history including heart disease, diabetes, cancer and states that her mother passed at age 94. Paternal Family History: Family History (Last Reviewed 05/02/18 @ 15:35 by Camille Escalante) Father Kidney disease Cancer History Items: Cancer, Heart Disease, Renal Disease Lives: Spouse/ Significant Other Smoking Status: Former smoker Alcohol: None Drugs: None Review of Systems - Review of Systems General: Reports: Fatigue, Malaise. Denies: Fever, Night Sweats HEENT: Denies: Vision Change Cardiovascular: Denies: Chest Discomfort, Shortness of Breath, Orthopnea, PND, Peripheral Edema, Palpitations, Lightheadedness, Dizziness, Near Syncope, Syncope Respiratory: Denies: Cough, Sputum Production, Hemoptysis Gastrointestinal: Denies: Indigestion, Hematemesis, Hematochezia, Melena Genitourinary: Denies: Dysuria, Hematuria Muscoloskeletal: Denies: Myalgias Skin: Denies: Rash Neurological: Denies: Dizziness Psychiatric: Denies: Anxiety Endocrine: Denies: Heat Intolerance Hematologic/ Lymphatic: Denies: Anemia Subjectve: Pleasant lady no apparent distress sitting in chair looks mildly dehydrated Objective: Vital Signs Temp Pulse Resp BP Pulse Ox 98.9 F 75 12 107/35 L 99 05/21/18 08:00 05/21/18 09:00 05/21/18 09:00 05/21/18 09:00 05/21/18 09:00 Oxygen Delivery Method Room Air Weight: 98 lb 8.746 oz Body Mass Index (BMI) 18.0 Finger Stick Blood Glucose 177 Intake and Output for Last 24 Hours 05/19/18 05/20/18 05/21/18 23:59 23:59 23:59 Intake Total 236 / 236 Output Total 50 / 50 Balance 186 / 186 General: Awake, Alert, Oriented x 3 HEENT: PERRL, EOMI, Sclera Non Icteric Neck: Supple, Good ROM, No Lymph Node Enlargement Lungs: Clear to auscultation Cardiovascular: Regular Rhythm, Normal S1, Normal S2, No Murmurs, No Rubs, No Gallops 05/20/18 20:26: WBC 13.5 H, RBC 3.71 L, Hgb 11.3 L, Hct 35.6 L, MCV 96.0, MCH 30.5, MCHC 31.7 L, RDW 16.2 H, RDW Differential 56.4 H, Plt Count 333, MPV 10.4, Immature Gran % (Auto) 0.300, Neut % (Auto) 91.1 H, Lymph % (Auto) 6.1 L, [place] % (Auto) 2.4, Eos % (Auto) 0.0, Baso % (Auto) 0.1, Absolute Neuts (auto) 12.3 H, Total Counted Not Reportable 05/20/18 20:34: Sodium 135 L, Potassium 4.9, Chloride 97 L, Carbon Dioxide 14.0 L, Anion Gap 24 H, BUN 48 H, Creatinine 1.76 H, Est GFR (MDRD) Af Amer 36 L, Est GFR (MDRD) Non-Af 29 L, BUN/Creatinine Ratio 27.3 H, Glucose 590 H*, Calcium 9.6, Magnesium 2.7 H, Troponin I 0.029 05/20/18 20:34: Hemoglobin A1c 10.7 H 05/20/18 22:30: Sodium 138, Potassium 4.7, Chloride 105, Carbon Dioxide 11.0 L, Anion Gap 22 H, BUN 46 H, Creatinine 1.69 H, Est GFR (MDRD) Af Amer 37 L, Est GFR (MDRD) Non-Af 31 L, BUN/Creatinine Ratio 27.2 H, Glucose 571 H*, Calcium 8.7 05/21/18 01:20: PT 14.5, INR 1.2, APTT 26.1 05/21/18 01:20: Sodium 143, Potassium 3.9, Chloride 105, Carbon Dioxide 17.0 L, Anion Gap 21 H, BUN 48 H, Creatinine 2.01 H, Est GFR (MDRD) Af Amer 31 L, Est GFR (MDRD) Non-Af 25 L, BUN/Creatinine Ratio 23.9 H, Glucose 417 H, Calcium 8.4 L, Troponin I 0.555 H 05/21/18 03:25: Urine Color Yellow, Urine Clarity Cloudy, Urine pH 6.0, Ur Specific [place] 1.025, Urine Protein 100 H, Urine Glucose (UA) 1000 H, Urine Ketones 50 H, Urine Occult Blood 10 H, Urine Nitrite Negative, Urine Bilirubin Negative, Urine Urobilinogen Normal, Ur Leukocyte Esterase 500 H, Urine RBC 0 SEEN, Urine WBC 25-50 SEEN 05/21/18 05:20: Sodium 143, Potassium 4.1, Chloride 107, Carbon Dioxide 21.0, Anion Gap 15, BUN 49 H, Creatinine 1.93 H, Est GFR (MDRD) Af Amer 32 L, Est GFR (MDRD) Non-Af 26 L, BUN/Creatinine Ratio 25.4 H, Glucose 282 H, Calcium 8.6 05/21/18 05:20: WBC 14.3 H, RBC 3.66 L, Hgb 11.0 L, Hct 34.4 L, MCV 94.0, MCH 30.1, MCHC 32.0, RDW 16.0 H, RDW Differential 55.0 H, Plt Count 315, MPV 10.1, Immature Gran % (Auto) 0.500, Neut % (Auto) 83.3 H, Lymph % (Auto) 10.1 L, [place] % (Auto) 6.0, Eos % (Auto) 0.0, Baso % (Auto) 0.1, Absolute Neuts (auto) 11.9 H, Total Counted Not Reportable 05/21/18 05:20: Troponin I 4.180 H* 05/21/18 09:25: Sodium 141, Potassium 3.5, Chloride 109 H, Carbon Dioxide 24.0, Anion Gap 8, BUN 49 H, Creatinine 1.92 H, Est GFR (MDRD) Af Amer 32 L, Est GFR (MDRD) Non-Af 27 L, BUN/Creatinine Ratio 25.5 H, Glucose 216 H, Calcium 8.1 L 05/21/18 10:00: Urine Color Yellow, Urine Clarity Clear, Urine pH 5.0, Ur Specific [place] 1.020, Urine Protein 30 H, Urine Glucose (UA) 1000 H, Urine Ketones 15 H, Urine Occult Blood 10 H, Urine Nitrite Negative, Urine Bilirubin Negative, Urine Urobilinogen Normal, Ur Leukocyte Esterase 25 H Rhythm: EKG: ECHO: Stress Test: Cardiac Cath: PCI: CT Surgery: Holter monitor: EPS: PPM: CXR: Chest CT Scan: Assessment/Plan 1. Non-ST elevation myocardial infarction The patient presented with uncontrolled diabetes likely secondary to a non-ST elevation myocardial infarction. She did have significant ST changes on presentation. She is never had a cardiac catheterization prior as per the patient. Recommendation would be to load with aspirin, Load with clopidogrel and continue beta-yuni Would consider for a cardiac catheterization in a.m. above has been discussed with the patient who agrees to proceed. 2. Hypertension Patient has a known history of hypertension however her blood pressure appears to be not very welcome controlled today Will continue with aggressive therapy and at amlodipine if the blood pressure still is elevated 3. Valvular heart disease Patient has history of aortic stenosis and mitral regurgitation. Echocardiogram performed demonstrated an aortic valve area of 1.6 cm square and moderate pulmonary hypertension. This may need to be evaluated with a heart catheterization though he does not appear to be significant. 4. Paroxysmal atrial fibrillation Patient appears to be in sinus rhythm which will be continued. Anticoagulation has been held since admission 5. Risk factor modification The patient will continue with aggressive risk factor modification Thank you for allowing me to participate in the care of your patient. Please don't hesitate to call if any issues arise
--- NOTE | 2018-05-21 10:51 | CASEMGMT ---
JULIO CESAR WALKER assessment: Face to Face with patient for initial transition planning/care coordination assessment. JULIO CESAR WALKER introduced self and role at [facility], pt voices understanding and consents to assessment at this time. Pt is sitting up in chair in no distress at this time. Pt is A/Ox4 at this time and answers most questions appropriately at this time. Pt's daughter is at bedside during assessment and assists with answering questions at this time. Care providers, pharmacy, and demographics verified. PCP: Yvonne Specialists: Hal, cardio; Minor/Juan Francisco pulm; ADRIEN Burch, endocrinology-pt states she was aware that BJ will be retiring as of 06/16/18 but daughter was not aware and pt states has not found new endrocrinologist yet. Pt/daughter provided with a list of [facility] in-network endocrinologists at this time. Preferred Pharmacy: [facility] Insurance: [facility] Prescription Benefit: [facility] Living Will/HPOA: Pt does have LW/HPOA and they are currently on file at [facility]. Pt's HPOA is her , Romie Ambrosio. LNOK: Romie Ambrosio, ; Hali Lin, daughter Living Arrangements: Pt states lives with in 1 story home and states no concerns at home at this time. Pt states is normally independent with ADL's. Transportation: Pt states drives and states no transportation concerns at this time. DME/HHC: Pt states has the following DME: grab bars, walker, cane, w/c, and tub bench. Pt states no hx of HHC but is active with [facility]. Pt states has been to [facility] s/p surgery in the past. Pt/daughter state no concerns with going home at time of discharge. Pt is retired. Pt states does not smoke but does have a glass of wine or martini with prior to bedtime every night. Pt/daughter state no further concerns/needs at this time. CM to follow for any further discharge planning/needs. Advised pt/daughter to ask for CM if any further questions/concerns/needs arise, voices understanding. Plan: [place] JULIO CESAR WALKER
--- NOTE | 2018-05-21 11:08 | CON.PCM_ITS ---
Reason for Consult Date of Consultation: 05/21/18 Reason for Consultation: Abnormal EKG findings and abnormal troponin History of Present Illness: The patient is a 82 year old F with past medical history consisting of valvular heart disease, paroxysmal atrial fibrillation who presented to the emergency room because of nausea, vomiting and diarrhea. Her illness started yesterday with persistent nausea and vomiting, has been throwing up since this morning, no aggravating or relieving factors associated with diarrhea with watery stool without blood as well as profound weakness. She denied abdominal pain, fever or chills. She denied chest pain, shortness of breath, palpitation, dizziness or lightheadedness. She denied cough or sputum production. She denies urinary symptoms. In the emergency room, her vital signs were stable. Her routine blood work was remarkable for mild leukocytosis, chronic anemia with stable hemoglobin, BUN of 48 and creatinine of 1.76. Her blood glucose was 590. Serum bicarb was 14 and anion gap was 24. Her hemoglobin A1c was 10.7. EKG revealed normal sinus rhythm with first-degree AV block, [place] interval of 282 ms, ST segment depression in leads II, V3, V 4, V5 and V6, there was no evidence of acute ST elevation. Compared to EKG from March,, the ST segment depression is new and it is significant. Patient denies any chest pain. She is being admitted for diabetic ketoacidosis, acute kidney injury and abnormal EKG. she specifically denies any chest pain or paroxysmal nocturnal dyspnea. During this hospitalization her troponins have increased to 4. Her EKG is improved this morning Past Medical History Allergies/Adverse Reactions: Allergies No Known Allergies Allergy (Verified 05/20/18 19:50) Home Medications: Ambulatory Orders Medication Instructions Recorded apixaban 2.5 mg tablet 2.5 mg PO BID 07/22/17 furosemide 40 mg tablet 40 mg PO DAILY 09/06/17 Insulin Lispro [Humalog] See Protocol SC CONT 09/25/17 carvedilol 3.125 mg tablet 3.125 mg PO BID #180 tab 10/22/17 Levothyroxine Sodium [Synthroid] 75 mcg PO SUSA 02/13/18 Amiodarone HCl 100 mg PO DAILY 05/20/18 Furosemide 20 mg PO DAILY 05/20/18 Levothyroxine [Synthroid] 50 mcg PO MOTUWETHFR 05/20/18 Past Medical History (Chronic Problems): Chronic Problems (Last Updated 05/20/18 @ 22:39 by Rah Faulkner MD) HLD (hyperlipidemia) (Chronic) TIA (transient ischemic attack) (Chronic) Essential (primary) hypertension (Chronic) Chronic diastolic (congestive) heart failure (Chronic) Aortic stenosis (Chronic) Mild to moderate per echo 11/16/17 [facility]: see report for measurements Pulmonic valve regurgitation (Chronic) Moderate per echo 11/16/17 [facility] Diabetes type 1, controlled (Chronic) dx : last exacerbation : dka : years ago hypoglycemic episode : 02/06 er visit :years ago Asthma (Chronic) Secondary pulmonary arterial hypertension (Chronic) RVSP 53mm hg per echo 11/16/2017 [facility] Nonrheumatic mitral (valve) insufficiency (Chronic) Moderate to severe regurgitation per echo 11/16/2017 [facility] Paroxysmal atrial fibrillation (Chronic) DVT (deep venous thrombosis) (Chronic) Right-sided heart failure (Chronic) Uncontrolled type 1 diabetes mellitus with complication, without long-term current use of insulin (Chronic) Doing fairly well. Appetite is fairly good. She reports no issues. Swelling in legs sl improved. Surgical History: - - Tonsillectomy, insulin pump. 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 Maternal Family History: Family History (Last Reviewed 05/02/18 @ 15:35 by Camille Escalante) Father Kidney disease Cancer History Items: - - Patient denies any market maternal family history including heart disease, diabetes, cancer and states that her mother passed at age 94. Paternal Family History: Family History (Last Reviewed 05/02/18 @ 15:35 by Camille Escalante) Father Kidney disease Cancer History Items: Cancer, Heart Disease, Renal Disease Lives: Spouse/ Significant Other Smoking Status: Former smoker Alcohol: None Drugs: None Review of Systems - Review of Systems General: Reports: Fatigue, Malaise. Denies: Fever, Night Sweats HEENT: Denies: Vision Change Cardiovascular: Denies: Chest Discomfort, Shortness of Breath, Orthopnea, PND, Peripheral Edema, Palpitations, Lightheadedness, Dizziness, Near Syncope, Syncope Respiratory: Denies: Cough, Sputum Production, Hemoptysis Gastrointestinal: Denies: Indigestion, Hematemesis, Hematochezia, Melena Genitourinary: Denies: Dysuria, Hematuria Muscoloskeletal: Denies: Myalgias Skin: Denies: Rash Neurological: Denies: Dizziness Psychiatric: Denies: Anxiety Endocrine: Denies: Heat Intolerance Hematologic/ Lymphatic: Denies: Anemia Subjectve: Pleasant lady no apparent distress sitting in chair looks mildly dehydrated Objective: Vital Signs Temp Pulse Resp BP Pulse Ox 98.9 F 75 12 107/35 L 99 05/21/18 08:00 05/21/18 09:00 05/21/18 09:00 05/21/18 09:00 05/21/18 09:00 Oxygen Delivery Method Room Air Weight: 98 lb 8.746 oz Body Mass Index (BMI) 18.0 Finger Stick Blood Glucose 177 Intake and Output for Last 24 Hours 05/19/18 05/20/18 05/21/18 23:59 23:59 23:59 Intake Total 236 / 236 Output Total 50 / 50 Balance 186 / 186 General: Awake, Alert, Oriented x 3 HEENT: PERRL, EOMI, Sclera Non Icteric Neck: Supple, Good ROM, No Lymph Node Enlargement Lungs: Clear to auscultation Cardiovascular: Regular Rhythm, Normal S1, Normal S2, No Murmurs, No Rubs, No Gallops 05/20/18 20:26: WBC 13.5 H, RBC 3.71 L, Hgb 11.3 L, Hct 35.6 L, MCV 96.0, MCH 30.5, MCHC 31.7 L, RDW 16.2 H, RDW Differential 56.4 H, Plt Count 333, MPV 10.4, Immature Gran % (Auto) 0.300, Neut % (Auto) 91.1 H, Lymph % (Auto) 6.1 L, [place] % (Auto) 2.4, Eos % (Auto) 0.0, Baso % (Auto) 0.1, Absolute Neuts (auto) 12.3 H, Total Counted Not Reportable 05/20/18 20:34: Sodium 135 L, Potassium 4.9, Chloride 97 L, Carbon Dioxide 14.0 L, Anion Gap 24 H, BUN 48 H, Creatinine 1.76 H, Est GFR (MDRD) Af Amer 36 L, Est GFR (MDRD) Non-Af 29 L, BUN/Creatinine Ratio 27.3 H, Glucose 590 H*, Calcium 9.6, Magnesium 2.7 H, Troponin I 0.029 05/20/18 20:34: Hemoglobin A1c 10.7 H 05/20/18 22:30: Sodium 138, Potassium 4.7, Chloride 105, Carbon Dioxide 11.0 L, Anion Gap 22 H, BUN 46 H, Creatinine 1.69 H, Est GFR (MDRD) Af Amer 37 L, Est GFR (MDRD) Non-Af 31 L, BUN/Creatinine Ratio 27.2 H, Glucose 571 H*, Calcium 8.7 05/21/18 01:20: PT 14.5, INR 1.2, APTT 26.1 05/21/18 01:20: Sodium 143, Potassium 3.9, Chloride 105, Carbon Dioxide 17.0 L, Anion Gap 21 H, BUN 48 H, Creatinine 2.01 H, Est GFR (MDRD) Af Amer 31 L, Est GFR (MDRD) Non-Af 25 L, BUN/Creatinine Ratio 23.9 H, Glucose 417 H, Calcium 8.4 L, Troponin I 0.555 H 05/21/18 03:25: Urine Color Yellow, Urine Clarity Cloudy, Urine pH 6.0, Ur Specific [place] 1.025, Urine Protein 100 H, Urine Glucose (UA) 1000 H, Urine Ketones 50 H, Urine Occult Blood 10 H, Urine Nitrite Negative, Urine Bilirubin Negative, Urine Urobilinogen Normal, Ur Leukocyte Esterase 500 H, Urine RBC 0 SEEN, Urine WBC 25-50 SEEN 05/21/18 05:20: Sodium 143, Potassium 4.1, Chloride 107, Carbon Dioxide 21.0, Anion Gap 15, BUN 49 H, Creatinine 1.93 H, Est GFR (MDRD) Af Amer 32 L, Est GFR (MDRD) Non-Af 26 L, BUN/Creatinine Ratio 25.4 H, Glucose 282 H, Calcium 8.6 05/21/18 05:20: WBC 14.3 H, RBC 3.66 L, Hgb 11.0 L, Hct 34.4 L, MCV 94.0, MCH 30.1, MCHC 32.0, RDW 16.0 H, RDW Differential 55.0 H, Plt Count 315, MPV 10.1, Immature Gran % (Auto) 0.500, Neut % (Auto) 83.3 H, Lymph % (Auto) 10.1 L, [place] % (Auto) 6.0, Eos % (Auto) 0.0, Baso % (Auto) 0.1, Absolute Neuts (auto) 11.9 H, Total Counted Not Reportable 05/21/18 05:20: Troponin I 4.180 H* 05/21/18 09:25: Sodium 141, Potassium 3.5, Chloride 109 H, Carbon Dioxide 24.0, Anion Gap 8, BUN 49 H, Creatinine 1.92 H, Est GFR (MDRD) Af Amer 32 L, Est GFR (MDRD) Non-Af 27 L, BUN/Creatinine Ratio 25.5 H, Glucose 216 H, Calcium 8.1 L 05/21/18 10:00: Urine Color Yellow, Urine Clarity Clear, Urine pH 5.0, Ur Specific [place] 1.020, Urine Protein 30 H, Urine Glucose (UA) 1000 H, Urine Ketones 15 H, Urine Occult Blood 10 H, Urine Nitrite Negative, Urine Bilirubin Negative, Urine Urobilinogen Normal, Ur Leukocyte Esterase 25 H Rhythm: EKG: ECHO: Stress Test: Cardiac Cath: PCI: CT Surgery: Holter monitor: EPS: PPM: CXR: Chest CT Scan: Assessment/Plan 1. Non-ST elevation myocardial infarction The patient presented with uncontrolled diabetes likely secondary to a non-ST elevation myocardial infarction. She did have significant ST changes on presentation. She is never had a cardiac catheterization prior as per the patient. * Recommendation would be to load with aspirin, * Load with clopidogrel and continue beta-yuni * Would consider for a cardiac catheterization in a.m. above has been discussed with the patient who agrees to proceed. * 2. Hypertension * Patient has a known history of hypertension however her blood pressure appears to be not very welcome controlled today * Will continue with aggressive therapy and at amlodipine if the blood pressure still is elevated * 3. Valvular heart disease * Patient has history of aortic stenosis and mitral regurgitation. Echocardiogram performed demonstrated an aortic valve area of 1.6 cm square and moderate pulmonary hypertension. This may need to be evaluated with a heart catheterization though he does not appear to be significant. * 4. Paroxysmal atrial fibrillation * Patient appears to be in sinus rhythm which will be continued. * Anticoagulation has been held since admission * 5. Risk factor modification * The patient will continue with aggressive risk factor modification * * Thank you for allowing me to participate in the care of your patient. Please don't hesitate to call if any issues arise
[2018-05-21] MEDS: Famotidine 20 MG Tablet PO (11:25)
[2018-05-21] MEDS: Amiodarone 200 MG Tablet 100 MG PO (11:25)
[2018-05-21] MEDS: Clopidogrel Bisulfate 300 MG Tablet PO (12:22)
[2018-05-21 12:30] LABS: Bedside Glucose 177 mg/dL (70-110)
[2018-05-21 12:30] LABS: Bedside Glucose 143 mg/dL (70-110)
[2018-05-21 12:55] LABS: Bedside Glucose 139 mg/dL (70-110)
[2018-05-21 13:03] LABS: Anion Gap 11 (5-15); BUN 47 mg/dL (7-18); BUN/Creat Ratio 26.6 RATIO (10-20); Calcium,Total 8.1 mg/dL (8.5-10.1); Chloride 107 mmol/L (98-107); Creatinine, Serum 1.77 mg/dL (0.55-1.02); EST Glomerular Filtration Rate 29 mL/min (>60); Est Glom Filt Rate - Afr Amer 35 mL/min (>60); Estimated Creatinine Clearance 17.59 ml/min; Glucose 143 mg/dL (74-106); Potassium 3.8 mmol/L (3.5-5.1); Sodium Level 143 mmol/L (136-145)
[2018-05-21] MEDS: Ondansetron 4 MG/2 ML Vial IV (13:03)
[2018-05-21 13:36] LABS: Bedside Glucose 115 mg/dL (70-110)
[2018-05-21 14:21] LABS: Bedside Glucose 133 mg/dL (70-110)
[2018-05-21 16:21] LABS: Bedside Glucose 91 mg/dL (70-110)
[2018-05-21 17:30] LABS: Bedside Glucose 93 mg/dL (70-110)
[2018-05-21] MEDS: Insulin NPH Human 100 UNITS/ML PEN SC (17:32)
[2018-05-21 18:25] LABS: Bedside Glucose 78 mg/dL (70-110)
[2018-05-21] MEDS: Dext 5%-0.45% NS 1,000 ML 125 ML IV (20:20)
[2018-05-21] MEDS: Insulin Lispro 100 UNIT/ML INSULN.PEN SC (21:03)
[2018-05-21] MEDS: Carvedilol 3.125 MG TABLET PO (21:04)
[2018-05-21] MEDS: Atorvastatin Calcium 40 MG Tablet PO (21:04)
[2018-05-21 21:15] LABS: Bedside Glucose 178 mg/dL (70-110)
--- NOTE | 2018-05-21 23:30 | NURSING ---
Report given to JULIO CESAR Yepez who will resume care of the patient at this time.
[2018-05-22] VITALS (19 sets, daily range): BP systolic 107–179; BP diastolic 45–83; PULSE 63–78; RESP 12–25; TEMP 36.3–36.9; O2SAT 93–98
[2018-05-22 04:26] LABS: Absolute Lymphocyte Count 1.53 X10^3/ul (0.83-4.51); Absolute Neutrophil Count 9.5 X10^3/uL (2.0-7.7); Basophil# 0.02 X10^3/uL; Basophil% 0.2 % (0-1); Eosinophil# 0.06 X10^3/uL; Eosinophils% 0.5 % (0-5); Hematocrit 32.4 % (37-47); Hemoglobin 10.4 g/dl (12.0-15.0); Lymphocyte # 1.53 X10^3/ul (4.0); Lymphocyte % 12.8 % (19-41); Mean Corp Hgb Conc 32.1 g/gl (32-36); Mean Corpuscular Hgb 30.1 pg (27.0-32.0); Mean Corpuscular Volume 93.6 fL (81-99); Mean Platelet Vol. 10.1 fl (6.2-12.0); Monocyte# 0.84 X10^3/uL; Neutrophil # 9.49 X10^3/uL (2.7-7.7); Neutrophil % 79.3 % (47-70); Platelet Count 301 K/mm3 (150-450); RBC Distribution Width CV 16.1 % (11.6-14.6); RBC Distribution Width SD 55.3 fl (35.1-43.9); Red Blood Count 3.46 M/mm3 (4.2-5.4)
[2018-05-22 04:33] LABS: POSITIVE COUNT NO; POSITIVE DIFFERENTIAL NO; POSITIVE MORPHOLOGY NO
[2018-05-22] MEDS: Dext 5%-0.45% NS 1,000 ML 125 ML IV (04:54)
[2018-05-22 05:09] LABS: ALB/GLOB Ratio 0.8 RATIO (0.9-2.4); AST(SGOT) 30 U/L (15-37); Alanine Aminotransfer ALT/SGPT 25 U/L (13-56); Albumin, Serum 2.7 g/dL (3.2-5.0); Alkaline Phosphatase 118 U/L (45-117); Anion Gap 11 (5-15); BUN 34 mg/dL (7-18); BUN/Creat Ratio 26.2 RATIO (10-20); Calcium,Total 8.2 mg/dL (8.5-10.1); Chloride 106 mmol/L (98-107); EST Glomerular Filtration Rate 42 mL/min (>60); Est Glom Filt Rate - Afr Amer 51 mL/min (>60); Estimated Creatinine Clearance 23.95 ml/min; Globulin 3.5 g/dL (2.2-4.2); Glucose 445 mg/dL (74-106); Magnesium 2.2 mg/dL (1.6-2.6); Phosphorus 2.9 mg/dL (2.5-4.9); Potassium 3.7 mmol/L (3.5-5.1); Protein, Total 6.2 g/dL (6.4-8.2); Sodium Level 138 mmol/L (136-145)
[2018-05-22 05:31] LABS: Bedside Glucose 467 mg/dL (70-110)
--- NOTE | 2018-05-22 05:45 | NURSING ---
Report received from JULIO CESAR Yepez. This RN resuming care of patient at this time.
--- NOTE | 2018-05-22 05:50 | NURSING ---
Received in report from JULIO CESAR Yepez that per Dr. Faulkner's telephone order, D5-0.45 NS @ 125 mL/hr to be discontinued.
[2018-05-22] MEDS: Insulin Lispro 100 UNIT/ML INSULN.PEN 16 UNIT SC (06:04)
[2018-05-22] MEDS: Levothyroxine 75 MCG Tablet PO (06:04)
[2018-05-22 06:55] LABS: Bedside Glucose 425 mg/dL (70-110)
--- NOTE | 2018-05-22 07:20 | PN_ITS ---
Subjective: It is an 82-year-old female with a past medical history of PAF, asthma, hypothyroidism, diastolic congestive heart failure, aortic stenosis, secondary pulmonary hypertension, hypertension, history of DVT on chronic anticoagulation with apixaban, diabetes mellitus type 1 and hyperlipidemia. She was admitted to the hospital with DKA, NSTEMI and possible urinary tract infection. Scheduled for cardiac catheterization on 05/23/2018. All events the past 24 hours of been reviewed. Afebrile since admission. Vital signs are stable but the systolic blood pressure has been increasing and is now high. 96-90% saturation on room air. Poor oral intake, only took 520 cc yesterday. All lab was personally reviewed. White blood cell count today is 12, down from 14.3 on 05/21/2018, with 79% neutrophils. Hemoglobin is 10.4 and platelets are within normal limits. Anion gap remains closed at 11. Potassium is 3.7 and the BUN is 34 with a creatinine of 1.3, down from 2.01 on 05/21/2018. Phosphorus and magnesium are within normal limits today. LFTs are unremarkable. A repeat UA done with a catheterized specimen shows only 25 leukocyte Estrace. Urine was obtained prior to any antibiotics. Urine culture is pending. Enteric pathogen panel was negative. Echocardiogram showed: Normal LV size. Left ventricular systolic function is normal. The estimated ejection fraction is 60 %. Stage 3 diastolic dysfunction. Moderate focal aortic valve calcification. Calculated aortic valve area (continuity equation) is 1.6 cm2. Pulmonary artery systolic pressure is 57 mmHg. Moderate pulmonary hypertension. She was nauseated this AM but it resolved after eating some breakfast. Denies diarrhea today. No CP, SOB or palpitations. Much more alert today - Physical Exam General: Alert, Oriented x3, Cooperative, No apparent distress HEENT: Atraumatic, PERRLA, EOMI Oral: No Gingival or Mucosal Lesions/ Ulcerations, Dry Mucosa Neck: Supple Lungs: No wheeze, Rales - coarse in the bases....improved after a few deep breaths....good respiratory effort with good air exchange Cardiovascular: Regular rate, Regular Rhythm, Normal S1, Normal S2, Murmur - at the apex - 2/6 systolic, No Gallop Abdomen: Bowel Sounds Present - somewhat diminished, Soft, Non Tender, Non- Distended Extremities: No clubbing, No cyanosis, No edema, Capillary Refill Less than 3 Seconds, No Calf Tenderness Skin: No rashes, No breakdown Neurological: Cranial nerves II-XII grossly intact, Neuro grossly intact Psych/Mental Status: Normal Affect, Appropriate Vital Signs Temp Pulse Resp BP Pulse Ox 98.9 F 77 14 156/63 H 98 05/21/18 20:00 05/22/18 06:00 05/22/18 06:00 05/22/18 06:00 05/22/18 06:00 Oxygen Delivery Method Room Air Weight: 99 lb 10.383 oz Body Mass Index (BMI) 18.0 Finger Stick Blood Glucose 78 Intake and Output for Last 24 Hours 05/20/18 05/21/18 05/22/18 23:59 23:59 23:59 Intake Total 2444 / 2444 1263 / 1263 Output Total 335 / 335 400 / 400 Balance 2109 / 2109 863 / 863 Microbiology Past 72 Hours 05/21/18 03:25 Enteric Bacteriology - Final Stool 05/21/18 00:40 C. difficile DNA Amplification - Final Stool Laboratory Tests Past 24 Hrs 05/21/18 05/21/18 05/21/18 09:25 09:25 10:00 WBC RBC Hgb Hct MCV MCH MCHC RDW RDW Differential Plt Count MPV Immature Gran % (Auto) Neut % (Auto) Lymph % (Auto) [place] % (Auto) Eos % (Auto) Baso % (Auto) Absolute Neuts (auto) Absolute Lymphs (auto) Total Counted Sodium 141 Potassium 3.5 Chloride 109 H Carbon Dioxide 24.0 Anion Gap 8 BUN 49 H Creatinine 1.92 H Estim Creat Clear Calc 16.22 Est GFR (MDRD) Af Amer 32 L Est GFR (MDRD) Non-Af 27 L BUN/Creatinine Ratio 25.5 H Glucose 216 H Calcium 8.1 L Phosphorus Magnesium Total Bilirubin AST ALT Alkaline Phosphatase Total Protein Albumin Globulin Albumin/Globulin Ratio TSH 0.73 Free T4 1.33 Urine Color Yellow Urine Clarity Clear Urine pH 5.0 Ur Specific [place] 1.020 Urine Protein 30 H Urine Glucose (UA) 1000 H Urine Ketones 15 H Urine Occult Blood 10 H Urine Nitrite Negative Urine Bilirubin Negative Urine Urobilinogen Normal Ur Leukocyte Esterase 25 H 05/21/18 05/22/18 05/22/18 12:30 04:10 04:10 WBC 12.0 H RBC 3.46 L Hgb 10.4 L Hct 32.4 L MCV 93.6 MCH 30.1 MCHC 32.1 RDW 16.1 H RDW Differential 55.3 H Plt Count 301 MPV 10.1 Immature Gran % (Auto) 0.200 Neut % (Auto) 79.3 H Lymph % (Auto) 12.8 L [place] % (Auto) 7.0 Eos % (Auto) 0.5 Baso % (Auto) 0.2 Absolute Neuts (auto) 9.5 H Absolute Lymphs (auto) 1.53 Total Counted Not Reportable Sodium 143 138 Potassium 3.8 3.7 Chloride 107 106 Carbon Dioxide 25.0 21.0 Anion Gap 11 11 BUN 47 H 34 H Creatinine 1.77 H 1.30 H Estim Creat Clear Calc 17.59 23.95 Est GFR (MDRD) Af Amer 35 L 51 L Est GFR (MDRD) Non-Af 29 L 42 L BUN/Creatinine Ratio 26.6 H 26.2 H Glucose 143 H 445 H Calcium 8.1 L 8.2 L Phosphorus 2.9 Magnesium 2.2 Total Bilirubin 0.40 AST 30 ALT 25 Alkaline Phosphatase 118 H Total Protein 6.2 L Albumin 2.7 L Globulin 3.5 Albumin/Globulin Ratio 0.8 L TSH Free T4 Urine Color Urine Clarity Urine pH Ur Specific [place] Urine Protein Urine Glucose (UA) Urine Ketones Urine Occult Blood Urine Nitrite Urine Bilirubin Urine Urobilinogen Ur Leukocyte Esterase POC Glucose 05/22/18 05/22/18 05/21/18 06:49 05:22 21:01 POC Glucose 425 H 467 H* 178 H 05/21/18 05/21/18 05/21/18 18:19 17:03 16:14 POC Glucose 78 93 91 05/21/18 05/21/18 05/21/18 14:16 13:32 12:27 POC Glucose 133 H 115 H 139 H 05/21/18 05/21/18 05/21/18 11:23 10:14 08:54 POC Glucose 143 H 177 H 244 H 05/21/18 05/21/18 07:50 07:08 POC Glucose 229 H 269 H Medical Necessity - Tobacco Use Smoking Status: Former smoker Assessment/Plan Impressions 1. Diabetic ketoacidosis - resolved 2. Uncontrolled diabetes mellitus type 1 - HGBA1C is > 10. diagnosed with Type I DM in the . On an insuling pump 3. Possible urinary tract infection - had pyuria on a clean catch but, no culture was sent and she was not started on an antibiotic. Straight cath was done on 05/21 and it had LE 25, rather than 500 on the clean catch and the cath was done prior to any antibiotics. Has been started on Ceftriaxone. 4. N/V/D - due to DKA OR does she have a viral gastroenteritis.......resolved with resolution of DKA 5. Hypothyroidism-TSH and T4 are within normal limits. 6. Acute renal failure secondary to dehydration-resolving 7. Dehydration 8. Normochromic normocytic anemia with an increased RDW-etiology? Check a HGBa1C 9. NSTEMI with history of normal stress test in March 2018. Has been seen by Dr. Tay and plans on cardiac cath Wednesday. 10. Dyslipidemia-refuses a statin 11. Chronic anticoagulation with apixaban Adjust the NPH and the Humalog Transfer to PCU IV fluids started by Dr. Tay and Amlodipine for better BP control Recheck a BMP in the AM Cath tomorrow NPO after MN Await the results of the urine culture - continue Rocephin until this is resulted......has had 2 other UTI's from January to now. 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
[2018-05-22] MEDS: Ondansetron 4 MG/2 ML Vial IV (07:31)
[2018-05-22] MEDS: Insulin Lispro 100 UNIT/ML INSULN.PEN SC ×6 (08:35→21:50)
[2018-05-22] MEDS: Insulin NPH Human 100 UNITS/ML PEN 12 UNITS SC (08:36)
[2018-05-22] MEDS: Aspirin 81 MG TAB.CHEW PO (08:40)
[2018-05-22 08:56] LABS: Bedside Glucose 319 mg/dL (70-110)
--- NOTE | 2018-05-22 09:28 | PN.CARD_ITS ---
Subjectve: Patient seen and evaluated. Appears to be doing better this morning. Objective: Vital Signs Temp Pulse Resp BP Pulse Ox 97.9 F 74 13 179/70 H 98 05/22/18 08:00 05/22/18 08:00 05/22/18 08:00 05/22/18 08:00 05/22/18 08:00 Oxygen Delivery Method Room Air Weight: 99 lb 10.383 oz Body Mass Index (BMI) 18.0 Finger Stick Blood Glucose 78 Intake and Output for Last 24 Hours 05/20/18 05/21/18 05/22/18 23:59 23:59 23:59 Intake Total 2444 / 2444 1263 / 1263 Output Total 335 / 335 400 / 400 Balance 2109 / 2109 863 / 863 General: Awake, Alert, Oriented x 3 HEENT: PERRL, EOMI, Sclera Non Icteric Neck: Supple, Good ROM, No Lymph Node Enlargement Lungs: Clear to auscultation Cardiovascular: Regular Rhythm, Normal S1, Normal S2, No Rubs, No Gallops Murmur Murmur: Grade 2/6, Early Systolic, LLSB Vascular: No Carotid Bruits, Normal Femoral Pulses, Normal Radial Pulses, Normal Dorsalis Pedal Pulse, Normal Posterior Tibial Pulses Abdomen: Bowel Sounds Present, Soft, Non Tender, No HSM, No Organomegaly Extremities: No Cyanosis, No Clubbing, No edema Musculoskeletal: No Erythema Skin: No Rashes Lymphatic: No Lymph Node Enlargement Neurological: No Focal Motor or Sensory Deficit Psych/Mental Status: Appropriate 05/21/18 09:25: Sodium 141, Potassium 3.5, Chloride 109 H, Carbon Dioxide 24.0, Anion Gap 8, BUN 49 H, Creatinine 1.92 H, Est GFR (MDRD) Af Amer 32 L, Est GFR (MDRD) Non-Af 27 L, BUN/Creatinine Ratio 25.5 H, Glucose 216 H, Calcium 8.1 L 05/21/18 10:00: Urine Color Yellow, Urine Clarity Clear, Urine pH 5.0, Ur Specific [place] 1.020, Urine Protein 30 H, Urine Glucose (UA) 1000 H, Urine Ketones 15 H, Urine Occult Blood 10 H, Urine Nitrite Negative, Urine Bilirubin Negative, Urine Urobilinogen Normal, Ur Leukocyte Esterase 25 H 05/21/18 12:30: Sodium 143, Potassium 3.8, Chloride 107, Carbon Dioxide 25.0, Anion Gap 11, BUN 47 H, Creatinine 1.77 H, Est GFR (MDRD) Af Amer 35 L, Est GFR (MDRD) Non-Af 29 L, BUN/Creatinine Ratio 26.6 H, Glucose 143 H, Calcium 8.1 L 05/22/18 04:10: WBC 12.0 H, RBC 3.46 L, Hgb 10.4 L, Hct 32.4 L, MCV 93.6, MCH 30.1, MCHC 32.1, RDW 16.1 H, RDW Differential 55.3 H, Plt Count 301, MPV 10.1, Immature Gran % (Auto) 0.200, Neut % (Auto) 79.3 H, Lymph % (Auto) 12.8 L, [facility] % (Auto) 7.0, Eos % (Auto) 0.5, Baso % (Auto) 0.2, Absolute Neuts (auto) 9.5 H, Total Counted Not Reportable 05/22/18 04:10: Sodium 138, Potassium 3.7, Chloride 106, Carbon Dioxide 21.0, Anion Gap 11, BUN 34 H, Creatinine 1.30 H, Est GFR (MDRD) Af Amer 51 L, Est GFR (MDRD) Non-Af 42 L, BUN/Creatinine Ratio 26.2 H, Glucose 445 H, Calcium 8.2 L, Phosphorus 2.9, Magnesium 2.2, Total Bilirubin 0.40 Rhythm: EKG: ECHO: Stress Test: Cardiac Cath: PCI: CT Surgery: Holter monitor: EPS: PPM: CXR: Chest CT Scan: Medical Necessity - Tobacco Use Smoking Status: Former smoker Assessment/Plan 1. Non-ST elevation myocardial infarction The patient presented with uncontrolled diabetes likely secondary to a non-ST elevation myocardial infarction. She did have significant ST changes on presentation. She is never had a cardiac catheterization prior as per the patient. * Recommendation would be to load with aspirin, * Load with clopidogrel and continue beta-yuni * Would consider for a cardiac catheterization in a.m. above has been discussed with the patient who agrees to proceed. * 2. Hypertension * Patient has a known history of hypertension however her blood pressure appears to be not very welcome controlled today * Will continue with aggressive therapy and at amlodipine if the blood pressure still is elevated * 3. Valvular heart disease * Patient has history of aortic stenosis and mitral regurgitation. Echocardiogram performed demonstrated an aortic valve area of 1.6 cm square and moderate pulmonary hypertension. This may need to be evaluated with a heart catheterization though he does not appear to be significant. * 4. Paroxysmal atrial fibrillation * Patient appears to be in sinus rhythm which will be continued. * Anticoagulation has been held since admission * 5. Risk factor modification * The patient will continue with aggressive risk factor modification * * * Overall the patient appears to be doing better this morning. We will still need hydration due to reduced but improving GFR and creatinine clearance * Thank you for allowing me to participate in the care of your patient. Please don't hesitate to call if any issues arise
[2018-05-22] MEDS: amLODIPine 5 MG Tablet PO (09:40)
[2018-05-22] MEDS: Amiodarone 200 MG Tablet 100 MG PO (09:41)
[2018-05-22] MEDS: 0.9% Normal Saline 1,000 ML 75 ML IV ×2 (09:42→21:50)
[2018-05-22] MEDS: Carvedilol 3.125 MG TABLET PO ×2 (09:42→21:51)
[2018-05-22] MEDS: Famotidine 20 MG Tablet PO (09:43)
[2018-05-22] MEDS: Ceftriaxone 1 GM/50 ML BAG IV (09:43)
[2018-05-22] MEDS: Clopidogrel Bisulfate 75 MG Tablet PO (09:46)
[2018-05-22] MEDS: Glucerna Shake 120 ML LIQUID PO ×2 (12:01→21:49)
[2018-05-22 12:56] LABS: Bedside Glucose 230 mg/dL (70-110)
[2018-05-22] MEDS: Insulin NPH Human 100 UNITS/ML PEN 10 UNITS SC (16:52)
[2018-05-22 17:11] LABS: Bedside Glucose 138 mg/dL (70-110)
[2018-05-22] MEDS: Atorvastatin Calcium 40 MG Tablet PO (21:50)
[2018-05-22] MEDS: NYSTATIN 500,000 UNIT/5 ML UDC 500000 UNIT PO (21:55)
[2018-05-22 22:20] LABS: Bedside Glucose 314 mg/dL (70-110)
[2018-05-23] VITALS (47 sets, daily range): BP systolic 105–169; BP diastolic 36–96; PULSE 62–71; RESP 8–18; TEMP 36.1–36.7; O2SAT 95–99
[2018-05-23 05:41] LABS: Absolute Neutrophil Count 5.5 X10^3/uL (2.0-7.7); Basophil# 0.01 X10^3/uL; Basophil% 0.1 % (0-1); Eosinophil# 0.11 X10^3/uL; Eosinophils% 1.4 % (0-5); Hemoglobin 10.5 g/dl (12.0-15.0); Lymphocyte % 20.4 % (19-41); Mean Corp Hgb Conc 31.8 g/gl (32-36); Mean Corpuscular Volume 94.3 fL (81-99); Mean Platelet Vol. 9.7 fl (6.2-12.0); Monocyte# 0.64 X10^3/uL; Monocyte% 8.1 % (0-10); Neutrophil # 5.48 X10^3/uL (2.7-7.7); Neutrophil % 69.7 % (47-70); Platelet Count 279 K/mm3 (150-450); RBC Distribution Width CV 16.2 % (11.6-14.6); RBC Distribution Width SD 55.9 fl (35.1-43.9); White Blood Count 7.9 K/mm3 (4.4-11.0)
[2018-05-23 05:49] LABS: POSITIVE COUNT NO; POSITIVE DIFFERENTIAL NO; POSITIVE MORPHOLOGY NO
[2018-05-23 06:05] LABS: Anion Gap 10 (5-15); BUN 20 mg/dL (7-18); BUN/Creat Ratio 24.8 RATIO (10-20); Calcium,Total 8.3 mg/dL (8.5-10.1); Chloride 109 mmol/L (98-107); Creatinine, Serum 0.81 mg/dL (0.55-1.02); EST Glomerular Filtration Rate 72 mL/min (>60); Est Glom Filt Rate - Afr Amer 87 mL/min (>60); Estimated Creatinine Clearance 38.87 ml/min; Glucose 227 mg/dL (74-106); Potassium 3.7 mmol/L (3.5-5.1); Sodium Level 142 mmol/L (136-145)
[2018-05-23] MEDS: Amiodarone 200 MG Tablet 100 MG PO (06:14)
[2018-05-23] MEDS: Clopidogrel Bisulfate 75 MG Tablet PO (06:14)
[2018-05-23] MEDS: amLODIPine 5 MG Tablet PO (06:15)
[2018-05-23] MEDS: Carvedilol 3.125 MG TABLET PO ×2 (06:17→21:19)
[2018-05-23] MEDS: Aspirin 81 MG TAB.CHEW PO (06:18)
[2018-05-23] MEDS: Levothyroxine 50 MCG Tablet PO (06:18)
[2018-05-23 06:23] LABS: International Normalized Ratio 1.1; Partial Thromboplast Time 24.8 Seconds (24.1-36.2); Prothrombin Time (Protime)PT. 13.9 SECONDS (11.7-14.9)
[2018-05-23 06:55] LABS: Bedside Glucose 304 mg/dL (70-110)
--- NOTE | 2018-05-23 08:52 | CASEMGMT ---
According to the [facility] website, the following are in-network tertiary facilities: [facility], [place], [facility], [place], [facility], [facility], [place], [facility], and . Maldonado HARRELL CM
--- NOTE | 2018-05-23 09:04 | CL.I_ITS ---
Patient Name: FORD GREENWOOD Study Date: 05/23/2018 Performing: Ge Hong MD Ht: 61.81 inches 157 cm : 1935 Wt: 110.23 lbs 50 kg Age: 82 Gender: female BSA: 1.48 PROCEDURE(S) PERFORMED [id number]/LHC/COR/LV [id number] W OR WO PTCA, SINGLE CORONARY ARTERY CLINICAL PROFILE AND CO-MORBIDITIES Indications: ACS > 24 hrs, Suspected CAD, Valvular Disease Heart Failure: None Stress/Imaging Stress/Image Study Performed: No CAD Presentations: Non-STEMI. Symptom onset Date/Time: 05/20/2018 Time Not Available Other: abnl E KG. Comorbidities/Risk Factors: Hypertension Dyslipidemia Diabetes Mellitus: Diabetes Therapy: Insulin CONCLUSIONS Normal LV size, wall motion,and systolic function Double vessel CAD of the LCX and LAD Non obstructive coronary arteries The patient has pulmonary hypertension which is moderate. Right heart pressures - moderately elevated Aortic Valve Calcification- Mild Aortic Valve Stenosis- Mild Successful PTCA/ANNA LAD with a 2.25 x 38 Promus, followed immediately downstream with a 2.25 x 12 Promus Synergy, all post dilated with a 2.25 x 8 NC Balloon; 85%-->10%, no dissection. Maximum NC ba lloon pressure in upper part of mid LAD stent to 15 dustin out of concern for calcification and increase d risk of arterial dissection and/or rupture. RECOMMENDATIONS Referred for immediate PCI Medical management of aortic stenosis and chronically occluded LCX. Highly recommend quitting all tobacco products Follow up with primary supervisor crack off Risk factor modification ASA Indefinitley Plavix for at least 12 months Routine post interventional care Refer for Outpatient Cardiac Rehab Manual sheath removal per protocol Follow up with Dr. Hong Manual sheath removal. Asa/plavix for life given length of stent, CAD and PVD. DESCRIPTION OF PROCEDURE The patient arrived to the procedure lab. The risks and benefits of the procedure as well as a full d escription of our services here and lack of surgical backup were fully explained to the patient and/o r their significant other prior to the catheterization. The Timeout was completed, verifying the paul ect patient and procedure. The patient's procedural site was prepped and draped in the usual fashion. Local anesthetic was given subcutaneously to right groin region with Lidocaine 2%. Using a modified Seldinger technique, arterial access was obtained via the right femoral artery, a 4Fr sheath was inse rted. Venous access was obtained via the right femoral vein, a 7Fr sheath was inserted. A 7Fr thermal dilution catheter was inserted and right heart pressures were recorded, it was then advanced to PA p osition for cardiac outputs. Thermal dilution cardiac outputs were then recorded. O2 saturations were then obtained. Left Ventriculography was performed in LLOYD projection using a 4 Fr. Pigtail catheter. LV to AO pullback pressures were then recorded. Simultaneous pressures were then re corded. The Thermal dilution catheter was then removed. Left Coronary Artery selective angiography wa s performed in multiple views using a 4 Fr. JL5 catheter. Right Coronary Artery selective angiography was then performed in multiple views using a 4 Fr. 3DRC catheterThe images were reviewed and options discussed. A decision was then made to proceed with an Intervention, IVUS or other adjunct procedure . Arterial sheath was exchanged for a 6 Fr 45cm Sheath. EBU 3.5 Guide catheter was inserted and eng aged into the LCA. BMW Guide wire was advanced to the LAD. 2x12 Emerge Balloon catheter was inserted. Balloon catheter was advanced across lesion in the LAD, mid. PTCA balloon inflated at 6 atms for 8 s ecs. PTCA balloon inflated at 6 atms for 8 secs. PTCA balloon inflated at 7 atms for 8 secs. PTCA bal loon inflated at 7 atms for 12 secs. Angiogram performed post balloon dilatation. 2.25x28 Synergy Farrukh g Eluting stent was inserted. Drug Eluting stent was advanced across the lesion in the LAD, mid. Drug Eluting stent was removed intact, failed to cross lesion 2x12 Emerge Balloon catheter was reinserted PTCA balloon inflated at 8 atms for 12 secs. PTCA balloon inflated at 8 atms for 6 secs. PTCA balloo n inflated at 9 atms for 16 secs. PTCA balloon inflated at 9 atms for 12 secs. 2.25x28 Synergy Drug E luting stent was inserted. Drug Eluting stent was advanced across the lesion in the LAD, mid. 2.25x8 NC Emerge Balloon catheter was inserted. Balloon catheter was inserted post stent. Angiog karli performed post stent deployment. 2.25x12 Synergy Drug Eluting stent was inserted. Drug Eluting st ent was advanced across the lesion in the LAD, mid. Drug Eluting stent was removed intact, failed to cross lesion 2.25x8 NC Emerge Balloon catheter was reinserted Balloon catheter was advanced across le francisco in the LAD, mid. PTCA balloon inflated at 14 atms for 13 secs. PTCA balloon inflated at 15 atms for 12 secs. Angiogram performed post balloon dilatation. 2.25 x 12 Synergy Drug Eluting stent was re inserted Drug Eluting stent was advanced across the lesion in the LAD, mid. Angiogram performed post stent deployment. The arterial sheath was sutured in place and capped. The venous sheath was then s utured inplace and capped CORONARY ANGIOGRAPHY DOMINANCE: Right Dominant LEFT HEART ASSESSMENT Left Ventricular Ejection Fraction: by LV Gram 65 % Normal Left Ventricular systolic function Normal LV wall motion RIGHT HEART ASSESSMENT Thermal CO: 3.99 Thermal CI: 2.7 Judi CO: 3.73 Judi CI: 2.52 PW: 17/ 18 PA: 52/15 30 RV: 51/2 8 RA: 10/9 6 PVR: 241 SVR: 1724 Right Heart pressures - elevated Pulmonary Hypertension Moderate LEFT MAIN: Angiographically normal LEFT ANTERIOR DECENDING ARTERY: PROX LAD: Severe calcification, Mild luminal irregularities less than 30% MID LAD: Moderate calcification, 85 % Stenosis DISTAL LAD: Mild luminal irregularities less than 30% CIRCUMFLEX ARTERY: MID CIRC: is occluded RIGHT CORONARY ARTERY: Mild calcification Mild luminal irregularities less than 30% COLLATERAL FLOW: Collateral flow from Left to Left INTERVENTION INFORMATION LESION SITE: LAD (Mid) Lesion Complexity: High/C, lesion at bifurcation: Yes, thrombus present: No, lesion length: 50 mm, cu lprit lesion: Yes Pre Stenosis: 85 % Pre intervention ORAL flow: 3 PROCEDURE: Drug Eluting Stent with pre and post dilatation Post Stenosis: 0 % Post intervention ORAL flow: 3 Lesion Devices: Darron Sci EMERGE MR 2.00x12 BALLOON Medtronic 6 Fr EBU3.5 100cm Guide Catheter Carty .014 BMW [place] Straight 190cm Darron Sci Synergy MR ANNA 2.25x28 Darron Sci Synergy MR ANNA 2.25x28 Darron Sci NC EMERGE MR 2.25x08 BALLOON Darron Sci Synergy MR ANNA 2.25x12 COMPLICATIONS No Complications PROCEDURE MEDICATIONS Oxygen: 0L/min via nasal cannula Heparin 6000 unit(s) IV 05/23/2018 08:19:45 Nitro 200 mcg IC 05/23/2018 08:21:25 Nitro 200 mcg IC 05/23/2018 08:21:25 SUMMARY OF HEMODYNAMIC DATA Time AIR REST ECG 07:45:12 RA 10/9 (6) SV 08:03:14 RV 51/2, 8 08:03:34 PW (18) PV 08:04:33 PA 52/15 (30) PA 08:04:42 LV 147/-7, 14 08:08:04 LV 153/-8, 15 08:08:11 LV 160/-9, 16 08:08:21 PA 49/15 (28) 08:08:21 LV 156/-10, 15 08:08:37 PW (18) 08:08:37 LV 156/-10, 15 08:08:43 PW (18) 08:08:43 LV 139/-5, 8 08:09:09 RV 44/0, 7 08:09:09 LV 155/-7, 16 08:09:16 RV 49/1, 8 08:09:16 LV 161/-9, 17 08:09:25 RV 50/0, 8 08:09:25 LV 155/-8, 17 08:10:36 LVp 158/-2, 26 08:10:42 AOp 155/56 (95) 08:10:47 AO 122/66 (92) SA 08:13:44 AO 91/39 (60) 08:23:25 08:56:07 Type SV CO (l/m) CI (l/m/ HR Time AIR REST Thermal 60.50 3.99 2.70 66 07:45:12 Judi 56.50 3.73 2.52 66 07:45:12 Label % O2 Pres/Loc Time AIR REST PA 56 PA 08:27:59 AO 93 PV 08:28:03 Signed By Ge Hong MD On 05/23/2018 09:03:07 Ge Hong MD
[2018-05-23 09:05] LABS: Blood Gas Specimen Type VEN; VBG BASE EXCESS -4 mmol/L (-1.0-3.5); VBG Bicarbonate 22 mmol/L (22-26); VBG Oxygen Content 23 mmol/L (23-33); VBG PO2 32 mmHg (25-40); VBG SO2 57 % (50-70); VBG pCO2 43.2 mmHg (41-51); VBG pH 7.31 (7.32-7.42)
[2018-05-23 09:05] LABS: Base Excess -5 mmol/L (-2 to +2); Bicarbonate 21.1 mmol/L (22-26); Blood Gas Specimen Type ART; PO2 71 mmHG (75-100); SO2 93 % (95-99); Total Carbon Dioxide 22 mmol/L; pCO2 41.8 mmHg (35-45); pH 7.31 (7.35-7.45)
[2018-05-23 09:05] LABS: Blood Gas Specimen Type VEN; VBG BASE EXCESS -4 mmol/L (-1.0-3.5); VBG Bicarbonate 22 mmol/L (22-26); VBG Oxygen Content 24 mmol/L (23-33); VBG PO2 31 mmHg (25-40); VBG SO2 55 % (50-70); VBG pCO2 44.4 mmHg (41-51); VBG pH 7.31 (7.32-7.42)
[2018-05-23 09:05] LABS: ACT Activated Clotting Time 186 sec (74-137)
--- NOTE | 2018-05-23 09:47 | EKG12_ITS ---
Test Reason : POST PCI Blood Pressure : / mmHG Vent. Rate : 064 BPM Atrial Rate : 064 BPM P-R Int : 230 ms QRS Dur : 100 ms QT Int : 446 ms P-R-T Axes : 081 038 010 degrees QTc Int : 460 ms Sinus rhythm with 1st degree A-V block Otherwise normal ECG When compared with ECG of 21-MAY-2018 05:23, MANUAL COMPARISON REQUIRED, DATA IS UNCONFIRMED Confirmed by UMA DAILY ([id number]), supervising film or videotape editor PAMELA HAYES ([id number]) on 05/27/2018 1:41:52 PM Referred By: Rah Faulkner Confirmed By:UMA DAILY
[2018-05-23] MEDS: 0.9% Normal Saline 1,000 ML 150 ML IV (09:58)
[2018-05-23] MEDS: Nitroglycerin Oint 1 INCH PACKET 0.5 INCH TRANSDERM. (10:24)
[2018-05-23 10:30] LABS: ACT Activated Clotting Time 175 sec (74-137)
[2018-05-23] MEDS: Ceftriaxone 1 GM/50 ML BAG IV (12:46)
[2018-05-23 13:05] LABS: Bedside Glucose 320 mg/dL (70-110)
--- NOTE | 2018-05-23 14:11 | CRPHASE1 ---
Patient Data/Charges Phase II Referral:: [facility] Start Phase II:: FOLLOWING OFFICE VISIT WITH DICTIONARY EDITOR Risk Factors/Lifestyle Smoking Status: Former smoker Hx Hypertension: Yes Hx Diabetes Mellitus Type 1: Yes Hx Diabetes Mellitus Type 2: No Hx Metabolic Disorders: Yes Hx Dyslipidemia: Yes Hx Obesity: No Height: 5 ft 2 in - BMI 18 Post-Menopausal: Yes Stress: Home/Family Risk Factor for Sedentary Lifestyle: Highest Risk Family History: Family History (Last Reviewed 05/02/18 @ 15:35 by Camille Escalante) Father Kidney disease Cancer Laboratory Values: Cardiac Rehab Phase I Labs Hemoglobin A1c 10.7 % (4.2-6.3) H 05/20/18 20:34 Phase I Education Given On:: [place], Nutrition, Antiplatelet medication, Diabetes - Type I Issues Affecting Care:: None Knowledge of Condition:: Yes Learning Preferences: Verbal, Written Hospital Course Presenting Symptoms:: NON-STEMI Medical/Surgical History CA:: Yes - NON-STEMI Diabetes:: Yes Diabetes Type I:: Yes Diabetes Type II:: No Hypertension:: Yes Dyslipidemia:: Yes PVD:: Yes - PAST DVT Other Medical/Surgical Issues:: AORTIC STENOSIS, ATRIAL FIB Discharge/Home/Social Eval Discharge Disposition: Home
--- NOTE | 2018-05-23 14:15 | CRPHASE1_ITS ---
Patient Data/Charges Phase II Referral:: [facility] Start Phase II:: FOLLOWING OFFICE VISIT WITH FIREWORKS DISPLAY SPECIALIST Risk Factors/Lifestyle Smoking Status: Former smoker Hx Hypertension: Yes Hx Diabetes Mellitus Type 1: Yes Hx Diabetes Mellitus Type 2: No Hx Metabolic Disorders: Yes Hx Dyslipidemia: Yes Hx Obesity: No Height: 5 ft 2 in - BMI 18 Post-Menopausal: Yes Stress: Home/Family Risk Factor for Sedentary Lifestyle: Highest Risk Family History: Family History (Last Reviewed 05/02/18 @ 15:35 by Camille Escalante) Father Kidney disease Cancer Laboratory Values: Cardiac Rehab Phase I Labs Hemoglobin A1c 10.7 % (4.2-6.3) H 05/20/18 20:34 Phase I Education Given On:: [place], Nutrition, Antiplatelet medication, Diabetes - Type I Issues Affecting Care:: None Knowledge of Condition:: Yes Learning Preferences: Verbal, Written Hospital Course Presenting Symptoms:: NON-STEMI Medical/Surgical History ID:: Yes - NON-STEMI Diabetes:: Yes Diabetes Type I:: Yes Diabetes Type II:: No Hypertension:: Yes Dyslipidemia:: Yes PVD:: Yes - PAST DVT Other Medical/Surgical Issues:: AORTIC STENOSIS, ATRIAL FIB Discharge/Home/Social Eval Discharge Disposition: Home
--- NOTE | 2018-05-23 14:15 | CRPH1.INSTRU ---
General Education CAD and cardiac anatomy and function:: Patient communicates acknowledgment Explanation of diagnoses and procedures:: Patient communicates acknowledgment Sign/Symptoms of CO:: Patient communicates acknowledgment Antiplatelet therapy: Patient communicates acknowledgment Proper use of NTG-SL: Not instructed Emergency procedures and activation of EMS: Patient communicates acknowledgment Compliance of all prescribed medications: Patient communicates acknowledgment Smoking Patient Nicotine/Smoking Risk Factors Are:: Non-smoker Recommendations Include:: Previous smoker; encourage continued cessation Nicotine/Smoking Response Code:: Patient communicates acknowledgment Dyslipidemia Patient Dyslipidemia Risk Factors Are:: Total Cholesterol, Triglycerides, HDL, LDL Recommendations Include:: Lipid profile provided, Reviewed NCEP/ATP guidelines, Therapeutic Lifestyle Change dietary guidelines Dyslipidemia Response Code:: Patient communicates acknowledgment Overweight/Obesity Patient Overweight/Obesity Risk Factors Are:: BMI Normal [18-25 & < 65 years old] Hypertension Recommendations Include:: BP <130/80 if diabetic, DASH dietary guidelines, Decrease/maintain normal body weight, Moderation of ETOH Hypertension:: Patient communicates acknowledgment Diabetes Patient Diabetes Risk Factors Are:: Elevated blood sugars Recommendations Include:: Maintain fasting blood sugars 70-110 md/dL, Maintain HgbA1c of 6% or less, Monitor blood sugar as prescribed, Diabetic dietary guidelines, Decrease/maintain body weight Diabetes:: Patient communicates acknowledgment Metabolic Syndrome Patient Metabolic Syndrome Risk Factors Are [3 of 5]:: Fasting blood sugar > 100 mg/dL Recommendations Include:: Does not meet criteria Sedentary Patient Sedentary Risk Factors Are:: Lack of regular exercise Recommendations Include:: Aerobic exercise 5-7 times/week for 20-30 minutes continuously, Benefits of regular exercise, Discussed home walking program, Monitored Outpatient Cardiac Rehab Sedentary Response Code:: Patient communicates acknowledgment Stress Recommendations Include:: Identification of stressors, and assessment of coping skills, Stress management techniques Stress Response Code:: Patient communicates acknowledgment
[2018-05-23] MEDS: Insulin NPH Human 100 UNITS/ML PEN 12 UNITS SC (14:22)
[2018-05-23] MEDS: Insulin Lispro 100 UNIT/ML INSULN.PEN SC ×5 (14:22→21:19)
--- NOTE | 2018-05-23 16:58 | PCM.PN.HOSP ---
Patient Problems: Active and Suspected Problems (Last Updated 05/23/18 @ 16:53 by Rosemary Gregory) Stented coronary artery (Acute 05/23/18) Successful PTCA/ANNA md LAD with a 2.25 x 38 Promus, followed immediately downstream with a 2.25 x 12 Promus Synergy. Chronically occluded CX. Per DJN @ [facility] 05/23/18 Subjective: Doing well after the cardiac cath, denies any chest pain at the moment. Vitals/I&O's: Vital Signs Temp Pulse Resp BP Pulse Ox 97.0 F L 69 12 151/68 H 99 05/23/18 16:00 05/23/18 16:00 05/23/18 16:00 05/23/18 16:00 05/23/18 16:00 Oxygen Delivery Method Room Air Weight: 109 lb 9.116 oz Body Mass Index (BMI) 18.0 Finger Stick Blood Glucose 78 Intake and Output for Last 24 Hours 05/21/18 05/22/18 05/23/18 23:59 23:59 23:59 Intake Total 2444 / 2444 2195 / 2195 1395 / 1395 Output Total 335 / 335 1050 / 1050 Balance 2109 / 2109 1145 / 1145 1395 / 1395 General: Alert, Oriented x3, Cooperative, No apparent distress HEENT: Atraumatic, PERRLA, EOMI, Normocephalic Oral: Moist Mucosa Neck: Supple, No JVD, Trachea Midline Lungs: Clear to auscultation, Normal air movement, No rhonchi, No wheeze, No rales Cardiovascular: Regular rate, Regular Rhythm, Normal S1, Normal S2, Murmur - 2/6 JENNIFER Abdomen: Soft, Non Tender, Non-Distended, No Hepato-splenomegaly Extremities: No edema, Capillary Refill Less than 3 Seconds Skin: No rashes, No breakdown, Incision - Dressing intact Neurological: Neuro grossly intact, Sensory exam intact to light touch and pain Psych/Mental Status: Normal Affect, Appropriate Microbiology Past 72 Hours 05/21/18 10:00 Urine Catheter - Catheter Urine Culture - Final Escherichia coli 05/21/18 03:25 Stool Enteric Bacteriology - Final 05/21/18 00:40 Stool C. difficile DNA Amplification - Final Laboratory Results 05/22/18 16:45: POC Glucose 138 H 05/22/18 21:48: POC Glucose 314 H 05/23/18 05:20: Sodium 142, Potassium 3.7, Chloride 109 H, Carbon Dioxide 23.0, Anion Gap 10, BUN 20 H, Creatinine 0.81, Estim Creat Clear Calc 38.87, Est GFR (MDRD) Af Amer 87, Est GFR (MDRD) Non-Af 72, BUN/Creatinine Ratio 24.8 H, Glucose 227 H, Calcium 8.3 L 05/23/18 05:20: WBC 7.9, RBC 3.50 L, Hgb 10.5 L, Hct 33.0 L, MCV 94.3, MCH 30.0, MCHC 31.8 L, RDW 16.2 H, RDW Differential 55.9 H, Plt Count 279, MPV 9.7, Immature Gran % (Auto) 0.300, Neut % (Auto) 69.7, Lymph % (Auto) 20.4, Gila % (Auto) 8.1, Eos % (Auto) 1.4, Baso % (Auto) 0.1, Absolute Neuts (auto) 5.5, Absolute Lymphs (auto) 1.60, Total Counted Not Reportable 05/23/18 05:20: PT 13.9, INR 1.1, APTT 24.8 05/23/18 06:34: POC Glucose 304 H 05/23/18 08:08: Specimen Type ADORE, VBG pH 7.31 L, VBG pO2 32, VBG O2 Sat (Calc) 57, VBG O2 Content 23, VBG Base Excess -4 L, POC Mix VBG pCO2 Pt Tmp 43.2 05/23/18 08:11: Specimen Type ADORE, VBG pH 7.31 L, VBG pO2 31, VBG O2 Sat (Calc) 55, VBG O2 Content 24, VBG Base Excess -4 L, POC Mix VBG pCO2 Pt Tmp 44.4 05/23/18 08:18: Specimen Type ART, pH 7.31 L, Bicarbonate Actual 21.1 L, POC Total CO2 22, Base Excess -5 L, O2 Saturation 93 L, ABG pCO2 41.8, ABG pO2 71 L 05/23/18 08:50: Activated Clotting Time 186 H 05/23/18 10:20: Activated Clotting Time 175 H 05/23/18 12:55: POC Glucose 320 H Current Medications Acetaminophen (Tylenol) 650 mg PO Q6H PRN PRN PRN Reason: Fever, headache, pain Amiodarone HCl (Cordarone) 100 mg PO DAILY [facility] Last Admin: 05/23/18 06:14 Dose: 100 mg Amlodipine Besylate (Norvasc) 5 mg PO DAILY [facility] Last Admin: 05/23/18 06:15 Dose: 5 mg Aspirin (Aspirin, Baby) 81 mg PO DAILY@0800 [facility] Last Admin: 05/23/18 06:18 Dose: 81 mg Atorvastatin Calcium (Lipitor) 40 mg PO QHS [facility] Last Admin: 05/22/18 21:50 Dose: 40 mg Atropine Sulfate () 0.5 mg IV UD PRN PRN Reason: HR <50 bpm Carvedilol (Coreg) 3.125 mg PO BID [facility] Last Admin: 05/23/18 06:17 Dose: 3.125 mg Clopidogrel Bisulfate (Plavix) 75 mg PO DAILY [facility] Last Admin: 05/23/18 06:14 Dose: 75 mg Dextrose (D50w Syringe) 0 gm IV X1 PRN; Protocol PRN Reason: Hypoglycemia Famotidine (Pepcid) 20 mg PO DAILY [facility] Last Admin: 05/22/18 09:43 Dose: 20 mg Glucagon () 1 mg IM .X1 PRN PRN Reason: Hypoglycemia Heparin Sodium (Beef Lung) (Heparin 500 Unit/5 Ml (100/Ml)) 500 unit IV UD PRN PRN Reason: HEPARIN FLUSH Ceftriaxone Sodium (Rocephin) 1 gm in 50 mls @ 100 mls/hr IV Q24 [facility] Last Admin: 05/23/18 12:46 Dose: 100 mls/hr Sodium Chloride () 1,000 mls @ 75 mls/hr IV .[id number] [facility] Last Admin: 05/23/18 12:37 Dose: Not Given Sodium Chloride () 1,000 mls @ 0 mls/hr IV .Q0M [facility] Insulin Human Lispro (Humalog Kwikpen (Bkc)) 3 unit SC TIDAC [facility] Last Admin: 05/23/18 14:22 Dose: 3 u Insulin Human Lispro (Humalog Kwikpen (Bkc)) 0 unit SC ACHS [facility]; Protocol Last Admin: 05/23/18 14:22 Dose: 6 u Insulin Human NPH (Humulin N (Bkc)) 12 units SC DAILY@0730 [facility] Last Admin: 05/23/18 14:22 Dose: 12 u Insulin Human NPH (Humulin N (Bkc)) 10 units SC DAILY@1630 [facility] Last Admin: 05/22/18 16:52 Dose: 10 unit Labetalol HCl (Trandate) 5 mg IV X1 PRN PRN Reason: SBP > 160 when pulling sheath Levothyroxine Sodium (Synthroid) 50 mcg PO MoTuWeThFr@0600 [facility] Last Admin: 05/23/18 06:18 Dose: 50 mcg Levothyroxine Sodium (Synthroid) 75 mcg PO SuSa@0600 [facility] Last Admin: 05/22/18 06:04 Dose: 75 mcg Magnesium Hydroxide (Milk Of Magnesia) 30 ml PO DAILY PRN PRN PRN Reason: Constipation Metoclopramide HCl (Reglan) 5 mg IV Q6H PRN PRN PRN Reason: NAUSEA/VOMITING Morphine Sulfate () 2 mg IV Q4H PRN PRN PRN Reason: Mild back pain (0-2/10) Nutritional Formula (Lactose Free) (Glucerna Shake) 120 ml PO 4X/DAY [facility] Last Admin: 05/23/18 15:09 Dose: Not Given Nystatin (Nystatin) 500,000 unit PO 4X/DAY [facility] Last Admin: 05/23/18 10:00 Dose: Not Given Ondansetron HCl (Zofran) 4 mg IV Q6H PRN PRN PRN Reason: NAUSEA/VOMITING Last Admin: 05/22/18 07:31 Dose: 4 mg Sodium Chloride () 500 ml IV BOLUS PRN PRN Reason: VASO-VAGAL PROTOCOL Medical Necessity - Tobacco Use Smoking Status: Former smoker Assessment/Plan All Active Problems (Last Updated 05/20/18 @ 22:39 by Rah Faulkner MD) Stented coronary artery (Acute 05/23/18) Arteriosclerotic heart disease (ASHD) (Acute 05/23/18) 1. NSTEMI/A. fib/HTN/chronic diastolic heart failure/HLD/CAD -Troponin on admission was 0.029 and increased ultimately to 4.18 -Cardiac catheter performed today with 2 stents placed to the mid LAD -Continue with aspirin and Plavix -Continue with amiodarone, Norvasc, Coreg, and Lipitor -Hold Lasix and her Eliquis will discuss with cardiology since she is on dual antiplatelets what to do with her anticoagulation 2. DM 1/DKA (resolved)/AK I (resolved) -Continue with her home insulin regimen -SSI and Accu-Cheks 3. UTI -50-80,000 CFU of E. coli which is pansensitive -Currently on Rocephin can transition to Keflex on discharge 4. Hypothyroidism -Stable -Continue with Synthroid DVT: Heparin Code Visit Inpatient E&M: 32976 Subs Hosp L2
--- NOTE | 2018-05-23 17:11 | PN_ITS ---
Patient Problems: Active and Suspected Problems (Last Updated 05/23/18 @ 16:53 by Rosemary Gregory) Stented coronary artery (Acute 05/23/18) Successful PTCA/ANNA md LAD with a 2.25 x 38 Promus, followed immediately downstream with a 2.25 x 12 Promus Synergy. Chronically occluded CX. Per DJN @ [facility] 05/23/18 Subjective: Doing well after the cardiac cath, denies any chest pain at the moment. Vitals/I&O's: Vital Signs Temp Pulse Resp BP Pulse Ox 97.0 F L 69 12 151/68 H 99 05/23/18 16:00 05/23/18 16:00 05/23/18 16:00 05/23/18 16:00 05/23/18 16:00 Oxygen Delivery Method Room Air Weight: 109 lb 9.116 oz Body Mass Index (BMI) 18.0 Finger Stick Blood Glucose 78 Intake and Output for Last 24 Hours 05/21/18 05/22/18 05/23/18 23:59 23:59 23:59 Intake Total 2444 / 2444 2195 / 2195 1395 / 1395 Output Total 335 / 335 1050 / 1050 Balance 2109 / 2109 1145 / 1145 1395 / 1395 General: Alert, Oriented x3, Cooperative, No apparent distress HEENT: Atraumatic, PERRLA, EOMI, Normocephalic Oral: Moist Mucosa Neck: Supple, No JVD, Trachea Midline Lungs: Clear to auscultation, Normal air movement, No rhonchi, No wheeze, No rales Cardiovascular: Regular rate, Regular Rhythm, Normal S1, Normal S2, Murmur - 2/6 JENNIFER Abdomen: Soft, Non Tender, Non-Distended, No Hepato-splenomegaly Extremities: No edema, Capillary Refill Less than 3 Seconds Skin: No rashes, No breakdown, Incision - Dressing intact Neurological: Neuro grossly intact, Sensory exam intact to light touch and pain Psych/Mental Status: Normal Affect, Appropriate Microbiology Past 72 Hours 05/21/18 10:00 Urine Catheter - Catheter Urine Culture - Final Escherichia coli 05/21/18 03:25 Stool Enteric Bacteriology - Final 05/21/18 00:40 Stool C. difficile DNA Amplification - Final Laboratory Results 05/22/18 16:45: POC Glucose 138 H 05/22/18 21:48: POC Glucose 314 H 05/23/18 05:20: Sodium 142, Potassium 3.7, Chloride 109 H, Carbon Dioxide 23.0, Anion Gap 10, BUN 20 H, Creatinine 0.81, Estim Creat Clear Calc 38.87, Est GFR (MDRD) Af Amer 87, Est GFR (MDRD) Non-Af 72, BUN/Creatinine Ratio 24.8 H, Glucose 227 H, Calcium 8.3 L 05/23/18 05:20: WBC 7.9, RBC 3.50 L, Hgb 10.5 L, Hct 33.0 L, MCV 94.3, MCH 30.0, MCHC 31.8 L, RDW 16.2 H, RDW Differential 55.9 H, Plt Count 279, MPV 9.7, Immature Gran % (Auto) 0.300, Neut % (Auto) 69.7, Lymph % (Auto) 20.4, Wetzel % (Auto) 8.1, Eos % (Auto) 1.4, Baso % (Auto) 0.1, Absolute Neuts (auto) 5.5, Absolute Lymphs (auto) 1.60, Total Counted Not Reportable 05/23/18 05:20: PT 13.9, INR 1.1, APTT 24.8 05/23/18 06:34: POC Glucose 304 H 05/23/18 08:08: Specimen Type ADORE, VBG pH 7.31 L, VBG pO2 32, VBG O2 Sat (Calc) 57, VBG O2 Content 23, VBG Base Excess -4 L, POC Mix VBG pCO2 Pt Tmp 43.2 05/23/18 08:11: Specimen Type ADORE, VBG pH 7.31 L, VBG pO2 31, VBG O2 Sat (Calc) 55, VBG O2 Content 24, VBG Base Excess -4 L, POC Mix VBG pCO2 Pt Tmp 44.4 05/23/18 08:18: Specimen Type ART, pH 7.31 L, Bicarbonate Actual 21.1 L, POC Total CO2 22, Base Excess -5 L, O2 Saturation 93 L, ABG pCO2 41.8, ABG pO2 71 L 05/23/18 08:50: Activated Clotting Time 186 H 05/23/18 10:20: Activated Clotting Time 175 H 05/23/18 12:55: POC Glucose 320 H Current Medications Acetaminophen (Tylenol) 650 mg PO Q6H PRN PRN PRN Reason: Fever, headache, pain Amiodarone HCl (Cordarone) 100 mg PO DAILY [facility] Last Admin: 05/23/18 06:14 Dose: 100 mg Amlodipine Besylate (Norvasc) 5 mg PO DAILY [facility] Last Admin: 05/23/18 06:15 Dose: 5 mg Aspirin (Aspirin, Baby) 81 mg PO DAILY@0800 [facility] Last Admin: 05/23/18 06:18 Dose: 81 mg Atorvastatin Calcium (Lipitor) 40 mg PO QHS [facility] Last Admin: 05/22/18 21:50 Dose: 40 mg Atropine Sulfate () 0.5 mg IV UD PRN PRN Reason: HR <50 bpm Carvedilol (Coreg) 3.125 mg PO BID [facility] Last Admin: 05/23/18 06:17 Dose: 3.125 mg Clopidogrel Bisulfate (Plavix) 75 mg PO DAILY [facility] Last Admin: 05/23/18 06:14 Dose: 75 mg Dextrose (D50w Syringe) 0 gm IV X1 PRN; Protocol PRN Reason: Hypoglycemia Famotidine (Pepcid) 20 mg PO DAILY [facility] Last Admin: 05/22/18 09:43 Dose: 20 mg Glucagon () 1 mg IM .X1 PRN PRN Reason: Hypoglycemia Heparin Sodium (Beef Lung) (Heparin 500 Unit/5 Ml (100/Ml)) 500 unit IV UD PRN PRN Reason: HEPARIN FLUSH Ceftriaxone Sodium (Rocephin) 1 gm in 50 mls @ 100 mls/hr IV Q24 [facility] Last Admin: 05/23/18 12:46 Dose: 100 mls/hr Sodium Chloride () 1,000 mls @ 75 mls/hr IV .[id number] [facility] Last Admin: 05/23/18 12:37 Dose: Not Given Sodium Chloride () 1,000 mls @ 0 mls/hr IV .Q0M [facility] Insulin Human Lispro (Humalog Kwikpen (Bkc)) 3 unit SC TIDAC [facility] Last Admin: 05/23/18 14:22 Dose: 3 u Insulin Human Lispro (Humalog Kwikpen (Bkc)) 0 unit SC ACHS [facility]; Protocol Last Admin: 05/23/18 14:22 Dose: 6 u Insulin Human NPH (Humulin N (Bkc)) 12 units SC DAILY@0730 [facility] Last Admin: 05/23/18 14:22 Dose: 12 u Insulin Human NPH (Humulin N (Bkc)) 10 units SC DAILY@1630 [facility] Last Admin: 05/22/18 16:52 Dose: 10 unit Labetalol HCl (Trandate) 5 mg IV X1 PRN PRN Reason: SBP > 160 when pulling sheath Levothyroxine Sodium (Synthroid) 50 mcg PO MoTuWeThFr@0600 [facility] Last Admin: 05/23/18 06:18 Dose: 50 mcg Levothyroxine Sodium (Synthroid) 75 mcg PO SuSa@0600 [facility] Last Admin: 05/22/18 06:04 Dose: 75 mcg Magnesium Hydroxide (Milk Of Magnesia) 30 ml PO DAILY PRN PRN PRN Reason: Constipation Metoclopramide HCl (Reglan) 5 mg IV Q6H PRN PRN PRN Reason: NAUSEA/VOMITING Morphine Sulfate () 2 mg IV Q4H PRN PRN PRN Reason: Mild back pain (0-2/10) Nutritional Formula (Lactose Free) (Glucerna Shake) 120 ml PO 4X/DAY [facility] Last Admin: 05/23/18 15:09 Dose: Not Given Nystatin (Nystatin) 500,000 unit PO 4X/DAY [facility] Last Admin: 05/23/18 10:00 Dose: Not Given Ondansetron HCl (Zofran) 4 mg IV Q6H PRN PRN PRN Reason: NAUSEA/VOMITING Last Admin: 05/22/18 07:31 Dose: 4 mg Sodium Chloride () 500 ml IV BOLUS PRN PRN Reason: VASO-VAGAL PROTOCOL Medical Necessity - Tobacco Use Smoking Status: Former smoker Assessment/Plan All Active Problems (Last Updated 05/20/18 @ 22:39 by Rah Faulkner MD) Stented coronary artery (Acute 05/23/18) Arteriosclerotic heart disease (ASHD) (Acute 05/23/18) 1. NSTEMI/A. fib/HTN/chronic diastolic heart failure/HLD/CAD -Troponin on admission was 0.029 and increased ultimately to 4.18 -Cardiac catheter performed today with 2 stents placed to the mid LAD -Continue with aspirin and Plavix -Continue with amiodarone, Norvasc, Coreg, and Lipitor -Hold Lasix and her Eliquis will discuss with cardiology since she is on dual antiplatelets what to do with her anticoagulation 2. DM 1/DKA (resolved)/AK I (resolved) -Continue with her home insulin regimen -SSI and Accu-Cheks 3. UTI -50-80,000 CFU of E. coli which is pansensitive -Currently on Rocephin can transition to Keflex on discharge 4. Hypothyroidism -Stable -Continue with Synthroid DVT: Heparin Code Visit Inpatient E&M: [id number] Subs Hosp L2
[2018-05-23 17:15] LABS: Bedside Glucose 225 mg/dL (70-110)
[2018-05-23] MEDS: NYSTATIN 500,000 UNIT/5 ML UDC 500000 UNIT PO ×2 (17:35→21:20)
[2018-05-23] MEDS: Famotidine 20 MG Tablet PO (17:35)
[2018-05-23] MEDS: Insulin NPH Human 100 UNITS/ML PEN 10 UNITS SC (21:18)
[2018-05-23] MEDS: Glucerna Shake 120 ML LIQUID PO (21:18)
[2018-05-23] MEDS: Atorvastatin Calcium 40 MG Tablet PO (21:20)
[2018-05-23 21:35] LABS: Bedside Glucose 199 mg/dL (70-110)
[2018-05-24] VITALS (15 sets, daily range): BP systolic 105–159; BP diastolic 37–95; PULSE 60–70; RESP 10–20; TEMP 36.6–36.7; O2SAT 94–98
[2018-05-24 02:21] LABS: Bedside Glucose 100 mg/dL (70-110)
[2018-05-24] MEDS: Levothyroxine 50 MCG Tablet PO (05:52)
[2018-05-24 06:06] LABS: Hematocrit 29.7 % (37-47); Hemoglobin 9.5 g/dl (12.0-15.0); Mean Corpuscular Hgb 30.2 pg (27.0-32.0); Mean Corpuscular Volume 94.3 fL (81-99); Mean Platelet Vol. 10.2 fl (6.2-12.0); Platelet Count 258 K/mm3 (150-450); RBC Distribution Width CV 15.8 % (11.6-14.6); RBC Distribution Width SD 51.8 fl (35.1-43.9); Red Blood Count 3.15 M/mm3 (4.2-5.4); White Blood Count 6.8 K/mm3 (4.4-11.0)
[2018-05-24 06:20] LABS: Anion Gap 8 (5-15); BUN 19 mg/dL (7-18); BUN/Creat Ratio 24.7 RATIO (10-20); Calcium,Total 8.1 mg/dL (8.5-10.1); Chloride 111 mmol/L (98-107); Cholesterol 147 mg/dL (200); Creatinine, Serum 0.77 mg/dL (0.55-1.02); EST Glomerular Filtration Rate 76 mL/min (>60); Est Glom Filt Rate - Afr Amer 93 mL/min (>60); Estimated Creatinine Clearance 34.06 ml/min; Glucose 72 mg/dL (74-106); High Density Lipoprotein 75 mg/dL; Potassium 3.5 mmol/L (3.5-5.1); Sodium Level 143 mmol/L (136-145); Triglycerides 105 mg/dL; Very Low Density Lipoprotein 21 mg/dL (5-40)
[2018-05-24 06:22] LABS: Scan Indicated on CBC? Y/N NO
[2018-05-24 07:10] LABS: Bedside Glucose 94 mg/dL (70-110)
[2018-05-24] MEDS: Insulin NPH Human 100 UNITS/ML PEN 12 UNITS SC (08:59)
[2018-05-24] MEDS: Amiodarone 200 MG Tablet 100 MG PO (09:00)
[2018-05-24] MEDS: Carvedilol 3.125 MG TABLET PO (09:00)
[2018-05-24] MEDS: Famotidine 20 MG Tablet PO (09:01)
[2018-05-24] MEDS: NYSTATIN 500,000 UNIT/5 ML UDC 500000 UNIT PO (09:01)
[2018-05-24] MEDS: amLODIPine 5 MG Tablet PO (09:01)
--- NOTE | 2018-05-24 09:03 | PCM.PN.CARD ---
Subjectve: Patient doing very well this morning. Sitting up in a chair, no acute distress. Telemetry negative. EKG shows normal sinus rhythm with resolving anterior ST segment changes. Hemoglobin and creatinine are within nominal limits. Objective: Vital Signs Temp Pulse Resp BP Pulse Ox 98 F 68 10 L 155/66 H 94 05/24/18 05:00 05/24/18 07:00 05/24/18 07:00 05/24/18 07:00 05/24/18 07:00 Oxygen Delivery Method Room Air Weight: 107 lb 12.897 oz Body Mass Index (BMI) 18.0 Finger Stick Blood Glucose 78 Intake and Output for Last 24 Hours 05/22/18 05/23/18 05/24/18 23:59 23:59 23:59 Intake Total 2195 / 2195 2856 / 2856 100 / 100 Output Total 1050 / 1050 800 / 800 Balance 1145 / 1145 6 / 205 100 / 100 General: Awake, Alert, Oriented x 3 HEENT: PERRL, EOMI, Sclera Non Icteric Neck: Supple, Good ROM, No Lymph Node Enlargement Lungs: Clear to auscultation Cardiovascular: Regular Rhythm, Normal S1, Normal S2, No Murmurs, No Rubs, No Gallops Vascular: No Carotid Bruits, Normal Femoral Pulses, Normal Radial Pulses, Normal Dorsalis Pedal Pulse, Normal Posterior Tibial Pulses Abdomen: Bowel Sounds Present, Soft, Non Tender, No HSM, No Organomegaly Extremities: No Cyanosis, No Clubbing, No edema Neurological: No Focal Motor or Sensory Deficit 05/23/18 08:08: VBG pH 7.31 L, VBG pO2 32, VBG O2 Sat (Calc) 57, VBG O2 Content 23, VBG Base Excess -4 L 05/23/18 08:11: VBG pH 7.31 L, VBG pO2 31, VBG O2 Sat (Calc) 55, VBG O2 Content 24, VBG Base Excess -4 L 05/23/18 08:18: pH 7.31 L, Bicarbonate Actual 21.1 L, POC Total CO2 22, Base Excess -5 L, O2 Saturation 93 L, ABG pCO2 41.8, ABG pO2 71 L 05/24/18 05:45: Sodium 143, Potassium 3.5, Chloride 111 H, Carbon Dioxide 24.0, Anion Gap 8, BUN 19 H, Creatinine 0.77, Est GFR (MDRD) Af Amer 93, Est GFR (MDRD) Non-Af 76, BUN/Creatinine Ratio 24.7 H, Glucose 72 L, Calcium 8.1 L, Triglycerides 105, Cholesterol 147, LDL Cholesterol 51, VLDL Cholesterol 21, HDL Cholesterol 75 05/24/18 05:45: WBC 6.8, RBC 3.15 L, Hgb 9.5 L, Hct 29.7 L, MCV 94.3, MCH 30.2, MCHC 32.0, RDW 15.8 H, RDW Differential 51.8 H, Plt Count 258, MPV 10.2 Rhythm: EKG: ECHO: Stress Test: Cardiac Cath: PCI: CT Surgery: Holter monitor: EPS: PPM: CXR: Chest CT Scan: Medical Necessity - Tobacco Use Smoking Status: Former smoker Assessment/Plan 1. Coronary artery disease: The patient underwent diagnostic coronary angiogram yesterday which demonstrated a chronic total occlusion in her mid left circumflex with adequate left to left collaterals, and a critical lesion and a long stretch of her mid LAD as well as moderate to heavy calcium in her proximal LAD and mild nonobstructive disease of her right coronary artery with moderate diffuse calcification in her RCA. Patient underwent successful Violetta plasty and drug-eluting stenting of her mid LAD receiving a 2.25 ex-38 Promus, followed distally and immediately adjacent with a 2.25 ex-12 Promus Synergy stent. At this point we will hold off on any additional attempts at intervention of her chronic total occlusion of her left circumflex as she is asymptomatic and has adequate left to left collaterals. She will maintain on baby aspirin Plavix for life given her diffuse coronary disease, and over 50 mm of drug-eluting stent which is only 2.25 mm in diameter. This point the patient may be transferred to stepdown unit while she is undergoing modification of her diabetic drugs and insulin. I believe the patient may require [facility] facility prior to going home. 2. Hyperlipidemia: Continue statin based medications. Repeat lipid profile in 6 weeks time. Continue atorvastatin. 3. Atrial fibrillation: Currently normal sinus rhythm. Continue low-dose amiodarone. 4. Thank you very much for the opportunity to participate in the cardiac care of your patient. Code Visit Inpatient E&M: [id number] Subs Hosp L2
--- NOTE | 2018-05-24 09:24 | DCINST_ITS ---
- Discharge Diagnoses Current Active Problems: Current Active and Chronic Problems (Last Updated 05/23/18 @ 16:53 by Rosemary Gregory) Stented coronary artery (Acute 05/23/18) Successful PTCA/ANNA md MITCHEL with a 2.25 x 38 Promus, followed immediately downstream with a 2.25 x 12 Promus Synergy. Chronically occluded CX. Per DJN @ [facility] 05/23/18 You will use the following diet at home:: Cardiac Your food should be the consistency of: Regular Your liquids should be the consistency of: Regular/Thin Discharge Activity: Return to Normal Activity, No Restrictions Call your doctor if you observe: Fever of 101 or Higher, Shortness of breath, Dizziness, Fainting spells, Chest pain, Increased palpitations (irregular heartbeat) Allergies/Adverse Reactions: Allergies No Known Allergies Allergy (Verified 05/20/18 19:50) Medications to take at Discharge apixaban 2.5 mg tablet 2.5 mg PO BID 07/22/17 furosemide 40 mg tablet 40 mg PO DAILY 09/06/17 Insulin Lispro [Humalog] See Protocol SC CONT 09/25/17 carvedilol 3.125 mg tablet 3.125 mg PO BID #180 tab 10/22/17 Levothyroxine Sodium [Synthroid] 75 mcg PO SUSA 02/13/18 Amiodarone HCl 100 mg PO DAILY 05/20/18 Furosemide 20 mg PO DAILY 05/20/18 Levothyroxine [Synthroid] 50 mcg PO [id number] 05/20/18 Amlodipine [Norvasc] 5 mg PO DAILY #30 tablet 05/24/18 Aspirin [Aspirin, Baby] 81 mg PO DAILY@0800 #30 tab.chew 05/24/18 Atorvastatin Calcium [Lipitor] 40 mg PO QHS #30 tablet 05/24/18 Clopidogrel Bisulfate [Plavix] 75 mg PO DAILY #30 tablet 05/24/18 The following prescriptions were given: Amlodipine [Norvasc] 5 mg PO DAILY #30 tablet Aspirin [Aspirin, Baby] 81 mg PO DAILY@0800 #30 tab.chew Atorvastatin Calcium [Lipitor] 40 mg PO QHS #30 tablet Clopidogrel Bisulfate [Plavix] 75 mg PO DAILY #30 tablet Orders to be completed after discharge: Phase II, Outpatient Cardiac Rehab Location: None Selected Primary Care Physician: Elvis Russell MD [Primary Care Provider] - Please follow up with your Primary Care Physician in: 3-5 days Test Results: Test results from this visit will be discussed in further detail at your follow- up appointment, if applicable. Please Follow Up With: Ge Hong MD When: 4-6 weeks
--- NOTE | 2018-05-24 09:25 | PCM.DC.SUM ---
Discharge Date and Diagnosis - Problem List Patient Problems: Active and Suspected Problems (Last Updated 05/23/18 @ 16:53 by Rosemary Gregory) Stented coronary artery (Acute 05/23/18) Successful PTCA/ANNA LAD with a 2.25 x 38 Promus, followed immediately downstream with a 2.25 x 12 Promus Synergy. Chronically occluded CX. Per DJN @ [facility] [place] 05/23/18 Date of Admission: 05/20/18 Date of Discharge: 05/24/18 - Primary Discharge Diagnosis Active and Suspected Problems (Last Updated 05/23/18 @ 16:53 by Rosemary Gregory) Stented coronary artery (Acute 05/23/18) Successful PTCA/ANNA LAD with a 2.25 x 38 Promus, followed immediately downstream with a 2.25 x 12 Promus Synergy. Chronically occluded CX. Per DJN @ [facility] [place] 05/23/18 - Secondary Discharge Diagnosis Chronic Problems (Last Updated 05/20/18 @ 22:39 by Rah Faulkner MD) HLD (hyperlipidemia) (Chronic) TIA (transient ischemic attack) (Chronic) Essential (primary) hypertension (Chronic) Chronic diastolic (congestive) heart failure (Chronic) Aortic stenosis (Chronic) Mild to moderate per echo 11/16/17 done @ [facility]: see report for measurements Pulmonic valve regurgitation (Chronic) Moderate per echo 11/16/17 Done @ [facility] Diabetes type 1, controlled (Chronic) dx : last exacerbation : dka : years ago hypoglycemic episode : 02/06 er visit :years ago Asthma (Chronic) Secondary pulmonary arterial hypertension (Chronic) RVSP 53mm hg per echo 11/16/2017 done @ [facility] Nonrheumatic mitral (valve) insufficiency (Chronic) Moderate to severe regurgitation per echo 11/16/2017 done @ [facility] Paroxysmal atrial fibrillation (Chronic) DVT (deep venous thrombosis) (Chronic) Right-sided heart failure (Chronic) Uncontrolled type 1 diabetes mellitus with complication, without long-term current use of insulin (Chronic) Doing fairly well. Appetite is fairly good. She reports no issues. Swelling in legs sl improved. Hospital Course and Treatment Imaging Results: CXR: IMPRESSION: Degenerative changes, as described above. No demonstrated acute cardiopulmonary process. Consults: Cardiology ICU Operations: None Procedures: 2-D Echocardiogram - Interpretation Summary Normal LV size. Left ventricular systolic function is normal. The estimated ejection fraction is 60 %. Stage 3 diastolic dysfunction. Moderate focal aortic valve calcification. Calculated aortic valve area (continuity equation) is 1.6 cm2. Pulmonary artery systolic pressure is 57 mmHg. 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 Right heart pressures - moderately elevated Aortic Valve Calcification- Mild Aortic Valve Stenosis- Mild Successful PTCA/ANNA md LAD with a 2.25 x 38 Promus, followed immediately downstream with a 2.25 x 12 Promus Synergy, all post dilated with a 2.25 x 8 NC Balloon; 85%-->10%, no dissection. Maximum NC balloon pressure in upper part of mid LAD stent to 15 dustin out of concern for calcification and increased risk of arterial dissection and/or rupture. RECOMMENDATIONS Referred for immediate PCI Medical management of aortic stenosis and chronically occluded LCX. Highly recommend quitting all tobacco products Follow up with primary slubber frame changer Risk factor modification ASA Indefinitley Plavix for at least 12 months Routine post interventional care Refer for Outpatient Cardiac Rehab Follow up with Dr. Hal Bennett/williamvix for life given length of stent, CAD and PVD. Summary of Care Provided: Per HPI: The patient is a 82 year old F with past medical history as mentioned above presented to the emergency room because of nausea, vomiting and diarrhea. Her illness started today morning with persistent nausea and vomiting, has been throwing up since this morning, no aggravating or relieving factors associated with diarrhea with watery stool without blood as well as profound weakness. She denied abdominal pain, fever or chills. She denied chest pain, shortness of breath, palpitation, dizziness or lightheadedness. She denied cough or sputum production. She denies urinary symptoms. In the emergency room, her vital signs were stable. Her routine blood work was remarkable for mild leukocytosis, chronic anemia with stable hemoglobin, BUN of 48 and creatinine of 1.76. Her blood glucose was 590. Serum bicarb was 14 and anion gap was 24. Her hemoglobin A1c was 10.7. EKG revealed normal sinus rhythm with first-degree AV block, TX interval of 282 ms, ST segment depression in leads II, V3, V 4, V5 and V6, there was no evidence of acute ST elevation. Compared to EKG from March,, the ST segment depression is new and it is significant. Patient denies any chest pain. She is being admitted for diabetic ketoacidosis, acute kidney injury and abnormal EKG. Hospital Course: 1. NSTEMI/A. fib/HTN/chronic diastolic heart failure/HLD/GDH-76-gb[age]-old female with history of type 1 diabetes presented initially with DKA and an acute kidney injury. She had nausea vomiting and diarrhea several days prior to admission. She says that prior to this her blood sugars were controlled very well in the 130s-150s with her insulin pump and bolusing schedule. Her DKA resolved fairly quickly however she also had a bump in her troponin during this time and was taken for cardiac cath with demonstrated severe calcific disease of the LAD necessitating 2 stents. She is to continue on her aspirin and Plavix as an outpatient as well as her Eliquis 2.5 twice daily for her A. fib. She will also need to be on a statin as well. Can resume her Lasix on discharge as her renal function has improved, and she was also started on Norvasc and will need follow-up with her primary care doctor as well as cardiology for any further medication adjustments as an outpatient. 2. DM 1/DKA/AK I-her DKA and her AK I resolved prior to discharge. She was placed on scheduled twice daily dosing of NPH as well as sliding scale insulin while she was here. I did discuss with her what her home regimen and states that she has been working with the endocrinology nurse practitioner here to adjust her regimen. But she is on a basal insulin pump as well as bolus dosing during the day. She does check her blood sugars 2-3 times a day and they have never been higher than the 150s. She states that prior to her admission she was having nausea and vomiting and diarrhea, and she was not eating very well was not taking her insulin and that is why she thinks her blood sugars were extremely elevated. There was significant concern that she was not appropriately dosing her insulin at home, however she is competent to make her own medical decisions and I stressed to her that she would benefit from long-term prior to going home to make sure that we get her insulin stabilized and any therapy that she might need, however she stated that she has comfort care which comes to the house as well as her son and daughter are here and will stay for the next few days to help her out at home and she does not want to go to a jail facility. 3. UTI-she had a UA which demonstrated possible urinary tract infection urine culture with 50-80,000 CFU's of pansensitive E. coli. Today will be her fourth dose of Rocephin and has therefore completed treatment of her urinary tract infection and will not need to be discharged on any antibiotics. 4. Her other medical diagnoses were evaluated and her home medications were continued were appropriate Patient Problems: Active and Suspected Problems (Last Updated 05/23/18 @ 16:53 by Rosemary Gregory) Stented coronary artery (Acute 05/23/18) Successful PTCA/ANNA md LAD with a 2.25 x 38 Promus, followed immediately downstream with a 2.25 x 12 Promus Synergy. Chronically occluded CX. Per VITALIYN @ [facility] [place] 05/23/18 Objective: General: Alert, Oriented x3, Cooperative, No apparent distress HEENT: Atraumatic, PERRLA, EOMI, Normocephalic Oral: Moist Mucosa Neck: Supple, No JVD, Trachea Midline Lungs: Clear to auscultation, Normal air movement, No rhonchi, No wheeze, No rales Cardiovascular: Regular rate, Regular Rhythm, Normal S1, Normal S2, Murmur - 2/6 JENNIFER Abdomen: Soft, Non Tender, Non-Distended, No Hepato-splenomegaly Extremities: No edema, Capillary Refill Less than 3 Seconds Skin: No rashes, No breakdown, Incision - Dressing intact Neurological: Neuro grossly intact, Sensory exam intact to light touch and pain Psych/Mental Status: Normal Affect, Appropriate - Physical Exam Vital Signs Temp Pulse Resp BP Pulse Ox 98 F 68 10 L 155/66 H 94 05/24/18 05:00 05/24/18 07:00 05/24/18 07:00 05/24/18 07:00 05/24/18 07:00 Oxygen Delivery Method Room Air Weight: 107 lb 12.897 oz Body Mass Index (BMI) 18.0 Finger Stick Blood Glucose 78 Intake and Output for Last 24 Hours 05/22/18 05/23/18 05/24/18 23:59 23:59 23:59 Intake Total 2195 / 2195 2856 / 2856 100 / 100 Output Total 1050 / 1050 800 / 800 Balance 1145 / 1145 2056 / 205 100 / 100 Microbiology Past 72 Hours 05/21/18 10:00 Urine Culture - Final Urine Catheter - Catheter Escherichia coli 05/21/18 03:25 Enteric Bacteriology - Final Stool Laboratory Tests Past 24 Hrs 05/23/18 05/24/18 05/24/18 10:20 05:45 05:45 WBC 6.8 RBC 3.15 L Hgb 9.5 L Hct 29.7 L MCV 94.3 MCH 30.2 MCHC 32.0 RDW 15.8 H RDW Differential 51.8 H Plt Count 258 MPV 10.2 Activated Clotting Time 175 H Sodium 143 Potassium 3.5 Chloride 111 H Carbon Dioxide 24.0 Anion Gap 8 BUN 19 H Creatinine 0.77 Estim Creat Clear Calc 34.06 Est GFR (MDRD) Af Amer 93 Est GFR (MDRD) Non-Af 76 BUN/Creatinine Ratio 24.7 H Glucose 72 L Calcium 8.1 L Triglycerides 105 Cholesterol 147 LDL Cholesterol 51 VLDL Cholesterol 21 HDL Cholesterol 75 POC Glucose 05/24/18 05/24/18 05/23/18 07:02 02:14 21:17 POC Glucose 94 100 199 H 05/23/18 05/23/18 17:06 12:55 POC Glucose 225 H 320 H Discharge Activity: Return to Normal Activity, No Restrictions Call your doctor if you observe: Fever of 101 or Higher, Shortness of breath, Dizziness, Fainting spells, Chest pain, Increased palpitations (irregular heartbeat) Home Medications: Medications to take at Discharge apixaban 2.5 mg tablet 2.5 mg PO BID 07/22/17 furosemide 40 mg tablet 40 mg PO DAILY 09/06/17 Insulin Lispro [Humalog] See Protocol SC CONT 09/25/17 carvedilol 3.125 mg tablet 3.125 mg PO BID #180 tab 10/22/17 Levothyroxine Sodium [Synthroid] 75 mcg PO SUSA 02/13/18 Amiodarone HCl 100 mg PO DAILY 05/20/18 Furosemide 20 mg PO DAILY 05/20/18 Levothyroxine [Synthroid] 50 mcg PO MOTUWETHFR 05/20/18 Amlodipine [Norvasc] 5 mg PO DAILY #30 tablet 05/24/18 Aspirin [Aspirin, Baby] 81 mg PO DAILY@0800 #30 tab.chew 05/24/18 Atorvastatin Calcium [Lipitor] 40 mg PO QHS #30 tablet 05/24/18 Clopidogrel Bisulfate [Plavix] 75 mg PO DAILY #30 tablet 05/24/18 Following Prescrptions Were Given to Patient: Amlodipine [Norvasc] 5 mg PO DAILY #30 tablet Aspirin [Aspirin, Baby] 81 mg PO DAILY@0800 #30 tab.chew Atorvastatin Calcium [Lipitor] 40 mg PO QHS #30 tablet Clopidogrel Bisulfate [Plavix] 75 mg PO DAILY #30 tablet Other Amb Orders: Phase II, Outpatient Cardiac Rehab Location: None Selected Primary Care Physician: Elvis Russell MD [Primary Care Provider] - Please follow up with your Primary Care Physician in: 3-5 days Please Follow Up With: Ge Hong MD When: 4-6 weeks Disposition: Home Minutes spent on discharge:: 35 Patient Condition:: Stable Medical Necessity - Tobacco Use Smoking Status: Former smoker Meaningful Use Info Meaningful Use Diagnoses (Choose all that apply): AMI - AMI Aspirin given w/in 24hrs of arrival?: Yes ASA at discharge?: Yes Statins at discharge?: Yes Niles/ARB at discharge?: No Reason Niles/ARB not ordered:: Not indicated Beta Zoraida at discharge?: Yes Done w/ Acute IL measure.: Yes Code Visit Inpatient E&M: 09170 Disch Hosp
--- NOTE | 2018-05-24 09:30 | DS.PCM_ITS ---
Discharge Date and Diagnosis - Problem List Patient Problems: Active and Suspected Problems (Last Updated 05/23/18 @ 16:53 by Rosemary Gregory) Stented coronary artery (Acute 05/23/18) Successful PTCA/ANNA LAD with a 2.25 x 38 Promus, followed immediately downstream with a 2.25 x 12 Promus Synergy. Chronically occluded CX. Per DJN @ [facility] 05/23/18 Date of Admission: 05/20/18 Date of Discharge: 05/24/18 - Primary Discharge Diagnosis Active and Suspected Problems (Last Updated 05/23/18 @ 16:53 by Rosemary Gregory) Stented coronary artery (Acute 05/23/18) Successful PTCA/ANNA LAD with a 2.25 x 38 Promus, followed immediately downstream with a 2.25 x 12 Promus Synergy. Chronically occluded CX. Per DJN @ [facility] 05/23/18 - Secondary Discharge Diagnosis Chronic Problems (Last Updated 05/20/18 @ 22:39 by Rah Faulkner MD) HLD (hyperlipidemia) (Chronic) TIA (transient ischemic attack) (Chronic) Essential (primary) hypertension (Chronic) Chronic diastolic (congestive) heart failure (Chronic) Aortic stenosis (Chronic) Mild to moderate per echo 11[facility]16[facility]: see report for measurements Pulmonic valve regurgitation (Chronic) Moderate per echo 11/16/17 Done [facility] Diabetes type 1, controlled (Chronic) dx : last exacerbation : dka : years ago hypoglycemic episode : 02/06 er visit :years ago Asthma (Chronic) Secondary pulmonary arterial hypertension (Chronic) RVSP 53mm hg per echo 11/16/2017 [facility] Nonrheumatic mitral (valve) insufficiency (Chronic) Moderate to severe regurgitation per echo 11/16/2017 [facility] Paroxysmal atrial fibrillation (Chronic) DVT (deep venous thrombosis) (Chronic) Right-sided heart failure (Chronic) Uncontrolled type 1 diabetes mellitus with complication, without long-term current use of insulin (Chronic) Doing fairly well. Appetite is fairly good. She reports no issues. Swelling in legs sl improved. Hospital Course and Treatment Imaging Results: CXR: IMPRESSION: Degenerative changes, as described above. No demonstrated acute cardiopulmonary process. Consults: Cardiology ICU Operations: None Procedures: 2-D Echocardiogram - Interpretation Summary Normal LV size. Left ventricular systolic function is normal. The estimated ejection fraction is 60 %. Stage 3 diastolic dysfunction. Moderate focal aortic valve calcification. Calculated aortic valve area (continuity equation) is 1.6 cm2. Pulmonary artery systolic pressure is 57 mmHg. 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 Right heart pressures - moderately elevated Aortic Valve Calcification- Mild Aortic Valve Stenosis- Mild Successful PTCA/ANNA md LAD with a 2.25 x 38 Promus, followed immediately downstream with a 2.25 x 12 Promus Synergy, all post dilated with a 2.25 x 8 NC Balloon; 85%-->10%, no dissection. Maximum NC balloon pressure in upper part of mid LAD stent to 15 dustin out of concern for calcification and increased risk of arterial dissection and/or rupture. RECOMMENDATIONS Referred for immediate PCI Medical management of aortic stenosis and chronically occluded LCX. Highly recommend quitting all tobacco products Follow up with primary cash reconciliation specialist Risk factor modification ASA Indefinitley Plavix for at least 12 months Routine post interventional care Refer for Outpatient Cardiac Rehab Follow up with Dr. Hal Bennett/williamvix for life given length of stent, CAD and PVD. Summary of Care Provided: Per HPI: The patient is a 82 year old F with past medical history as mentioned above presented to the emergency room because of nausea, vomiting and diarrhea. Her illness started today morning with persistent nausea and vomiting, has been throwing up since this morning, no aggravating or relieving factors associated with diarrhea with watery stool without blood as well as profound weakness. She denied abdominal pain, fever or chills. She denied chest pain, shortness of breath, palpitation, dizziness or lightheadedness. She denied cough or sputum production. She denies urinary symptoms. In the emergency room, her vital signs were stable. Her routine blood work was remarkable for mild leukocytosis, chronic anemia with stable hemoglobin, BUN of 48 and creatinine of 1.76. Her blood glucose was 590. Serum bicarb was 14 and anion gap was 24. Her hemoglobin A1c was 10.7. EKG revealed normal sinus rhythm with first-degree AV block, CA interval of 282 ms, ST segment depression in leads II, V3, V 4, V5 and V6, there was no evidence of acute ST elevation. Compared to EKG from March,, the ST segment depression is new and it is significant. Patient denies any chest pain. She is being admitted for diabetic ketoacidosis, acute kidney injury and abnormal EKG. Hospital Course: 1. NSTEMI/A. fib/HTN/chronic diastolic heart failure/HLD/MDK-74-cvwl-old female with history of type 1 diabetes presented initially with DKA and an acute kidney injury. She had nausea vomiting and diarrhea several days prior to admission. She says that prior to this her blood sugars were controlled very well in the 130s-150s with her insulin pump and bolusing schedule. Her DKA resolved fairly quickly however she also had a bump in her troponin during this time and was taken for cardiac cath with demonstrated severe calcific disease of the LAD necessitating 2 stents. She is to continue on her aspirin and Plavix as an outpatient as well as her Eliquis 2.5 twice daily for her A. fib. She will also need to be on a statin as well. Can resume her Lasix on discharge as her renal function has improved, and she was also started on Norvasc and will need follow- up with her primary care doctor as well as cardiology for any further medication adjustments as an outpatient. 2. DM 1/DKA/AK I-her DKA and her AK I resolved prior to discharge. She was placed on scheduled twice daily dosing of NPH as well as sliding scale insulin while she was here. I did discuss with her what her home regimen and states that she has been working with the endocrinology nurse practitioner here to adjust her regimen. But she is on a basal insulin pump as well as bolus dosing during the day. She does check her blood sugars 2-3 times a day and they have never been higher than the 150s. She states that prior to her admission she was having nausea and vomiting and diarrhea, and she was not eating very well was not taking her insulin and that is why she thinks her blood sugars were extremely elevated. There was significant concern that she was not appropriately dosing her insulin at home, however she is competent to make her own medical decisions and I stressed to her that she would benefit from detention prior to going home to make sure that we get her insulin stabilized and any therapy that she might need, however she stated that she has comfort care which comes to the house as well as her son and daughter are here and will stay for the next few days to help her out at home and she does not want to go to a long-term facility. 3. UTI-she had a UA which demonstrated possible urinary tract infection urine culture with 50-80,000 CFU's of pansensitive E. coli. Today will be her fourth dose of Rocephin and has therefore completed treatment of her urinary tract infection and will not need to be discharged on any antibiotics. 4. Her other medical diagnoses were evaluated and her home medications were continued were appropriate Patient Problems: Active and Suspected Problems (Last Updated 05/23/18 @ 16:53 by Rosemary Gregory) Stented coronary artery (Acute 05/23/18) Successful PTCA/ANNA md LAD with a 2.25 x 38 Promus, followed immediately downstream with a 2.25 x 12 Promus Synergy. Chronically occluded CX. Per VITALIYN @ [facility] 05/23/18 Objective: General: Alert, Oriented x3, Cooperative, No apparent distress HEENT: Atraumatic, PERRLA, EOMI, Normocephalic Oral: Moist Mucosa Neck: Supple, No JVD, Trachea Midline Lungs: Clear to auscultation, Normal air movement, No rhonchi, No wheeze, No r ales Cardiovascular: Regular rate, Regular Rhythm, Normal S1, Normal S2, Murmur - 2/6 JENNIFER Abdomen: Soft, Non Tender, Non-Distended, No Hepato-splenomegaly Extremities: No edema, Capillary Refill Less than 3 Seconds Skin: No rashes, No breakdown, Incision - Dressing intact Neurological: Neuro grossly intact, Sensory exam intact to light touch and pain Psych/Mental Status: Normal Affect, Appropriate - Physical Exam Vital Signs Temp Pulse Resp BP Pulse Ox 98 F 68 10 L 155/66 H 94 05/24/18 05:00 05/24/18 07:00 05/24/18 07:00 05/24/18 07:00 05/24/18 07:00 Oxygen Delivery Method Room Air Weight: 107 lb 12.897 oz Body Mass Index (BMI) 18.0 Finger Stick Blood Glucose 78 Intake and Output for Last 24 Hours 05/22/18 05/23/18 05/24/18 23:59 23:59 23:59 Intake Total 2195 / 2195 2856 / 2856 100 / 100 Output Total 1050 / 1050 800 / 800 Balance 1145 / 1145 2056 / 2056 100 / 100 Microbiology Past 72 Hours 05/21/18 10:00 Urine Culture - Final Urine Catheter - Catheter Escherichia coli 05/21/18 03:25 Enteric Bacteriology - Final Stool Laboratory Tests Past 24 Hrs 05/23/18 05/24/18 05/24/18 10:20 05:45 05:45 WBC 6.8 RBC 3.15 L Hgb 9.5 L Hct 29.7 L MCV 94.3 MCH 30.2 MCHC 32.0 RDW 15.8 H RDW Differential 51.8 H Plt Count 258 MPV 10.2 Activated Clotting Time 175 H Sodium 143 Potassium 3.5 Chloride 111 H Carbon Dioxide 24.0 Anion Gap 8 BUN 19 H Creatinine 0.77 Estim Creat Clear Calc 34.06 Est GFR (MDRD) Af Amer 93 Est GFR (MDRD) Non-Af 76 BUN/Creatinine Ratio 24.7 H Glucose 72 L Calcium 8.1 L Triglycerides 105 Cholesterol 147 LDL Cholesterol 51 VLDL Cholesterol 21 HDL Cholesterol 75 POC Glucose 05/24/18 05/24/18 05/23/18 07:02 02:14 21:17 POC Glucose 94 100 199 H 05/23/18 05/23/18 17:06 12:55 POC Glucose 225 H 320 H Discharge Activity: Return to Normal Activity, No Restrictions Call your doctor if you observe: Fever of 101 or Higher, Shortness of breath, Dizziness, Fainting spells, Chest pain, Increased palpitations (irregular heartbeat) Home Medications: Medications to take at Discharge apixaban 2.5 mg tablet 2.5 mg PO BID 07/22/17 furosemide 40 mg tablet 40 mg PO DAILY 09/06/17 Insulin Lispro [Humalog] See Protocol SC CONT 09/25/17 carvedilol 3.125 mg tablet 3.125 mg PO BID #180 tab 10/22/17 Levothyroxine Sodium [Synthroid] 75 mcg PO SUSA 02/13/18 Amiodarone HCl 100 mg PO DAILY 05/20/18 Furosemide 20 mg PO DAILY 05/20/18 Levothyroxine [Synthroid] 50 mcg PO MOTUWETHFR 05/20/18 Amlodipine [Norvasc] 5 mg PO DAILY #30 tablet 05/24/18 Aspirin [Aspirin, Baby] 81 mg PO DAILY@0800 #30 tab.chew 05/24/18 Atorvastatin Calcium [Lipitor] 40 mg PO QHS #30 tablet 05/24/18 Clopidogrel Bisulfate [Plavix] 75 mg PO DAILY #30 tablet 05/24/18 Following Prescrptions Were Given to Patient: Amlodipine [Norvasc] 5 mg PO DAILY #30 tablet Aspirin [Aspirin, Baby] 81 mg PO DAILY@0800 #30 tab.chew Atorvastatin Calcium [Lipitor] 40 mg PO QHS #30 tablet Clopidogrel Bisulfate [Plavix] 75 mg PO DAILY #30 tablet Other Amb Orders: Phase II, Outpatient Cardiac Rehab Location: None Selected Primary Care Physician: Elvis Russell MD [Primary Care Provider] - Please follow up with your Primary Care Physician in: 3-5 days Please Follow Up With: Ge Hong MD When: 4-6 weeks Disposition: Home Minutes spent on discharge:: 35 Patient Condition:: Stable Medical Necessity - Tobacco Use Smoking Status: Former smoker Meaningful Use Info Meaningful Use Diagnoses (Choose all that apply): AMI - AMI Aspirin given w/in 24hrs of arrival?: Yes ASA at discharge?: Yes Statins at discharge?: Yes Niles/ARB at discharge?: No Reason Niles/ARB not ordered:: Not indicated Beta Zoraida at discharge?: Yes Done w/ Acute [place] measure.: Yes Code Visit Inpatient E&M: 78688 Disch Hosp
--- NOTE | 2018-05-24 10:00 | EKG12_ITS ---
Test Reason : AM EKG Blood Pressure : / mmHG Vent. Rate : 065 BPM Atrial Rate : 065 BPM P-R Int : 216 ms QRS Dur : 094 ms QT Int : 408 ms P-R-T Axes : 094 026 019 degrees QTc Int : 424 ms Sinus rhythm with 1st degree A-V block Otherwise normal ECG When compared with ECG of 23-MAY-2018 09:21, MANUAL COMPARISON REQUIRED, DATA IS UNCONFIRMED Confirmed by UMA DAILY ([id number]), commercial production editor PAMELA HAYES ([id number]) on 05/27/2018 1:42:28 PM Referred By: Rah Faulkner Confirmed By:UMA DAILY
[2018-05-24] MEDS: Ceftriaxone 1 GM/50 ML BAG IV (10:14)
[2018-05-24] MEDS: Aspirin 81 MG TAB.CHEW PO (10:18)
[2018-05-24] MEDS: Clopidogrel Bisulfate 75 MG Tablet PO (10:18)
--- NOTE | 2018-05-24 11:02 | CASEMGMT ---
RN DENISE Note: Intro role of CM with patient and daughter. Lengthy discussion re: care planning for home needs. Pt lives with her , is independent, but pt and daughter state she is having more difficulty with diabetes and prescription managemnet. Reviewed physical therapy evaluation and recommendation for further therapy. Pt has aides that assist with transportation and grocery shopping. JULIO CESAR WALKER explained that skilled Home health RN, aide and PT could be in addition to her private duty aides. Choices for Home Health discussed and [facility] is preferred. -Call to [facility] who states they can see pt Wednesday and do take her insurance. Dr. Jimenez updated, ok with Home Health and to start Wednesday. -Order for Home Health entered. Lawson OCHOAN RN ACM
[2018-05-25 07:11] LABS: Bedside Glucose 364 mg/dL (70-110)
[2018-05-25 07:11] LABS: Bedside Glucose 358 mg/dL (70-110)
--- NOTE | 2018-05-25 16:30 | CASEMGMT ---
JULIO CESAR WALKER Discharge Follow-up Call. Lace: 4 Strata: 15 Discharge Date 05-24-18 Adm Dx: DKA, abnormal EKG, NSTEMI, UTI Call placed to pt to see how she has been doing since she was discharged from the hospital. Pt states she has been doing well. Pt states was able to molded goods spot picker all of her new medications, does not have any questions about the medications or about the discharge instructions. Pt states her daughter was able make an appt with ADRIEN Burch, but she is unsure of what day that is scheduled for. She also states has follow-up appts with Dr Russell on 05/30 and with Elise Hong's office 06/06. Pt denies any concerns or needs. Inquired if pt has any recommendations for [facility], and pt stated, Oh my goodness, no. You are all so wonderful. Everybody was so nice and such great educators. Everyone was smiling and so cheerful. JULIO CESAR WALKER thanked pt for choosing [facility]. Pt stated she appreciated the phone call and was thankful she could give her feedback. Javi GRACE RN, CM
== END 2018-05-24 12:50 | disposition home health service (06) | DRG 246 ==
LOC: ED 20:29 → ICU 22:41 → PCU 05-23 04:53 → ICU 05-23 07:10
PROVIDERS: Internal Medicine; Internal Medicine Cardiovascular Disease; Internal Medicine Critical Care Medicine; Admitting Provider Hospitalist; Emergency Provider Emergency Medicine; Family Provider Family Medicine; PCP Family Medicine; Referring Provider Hospitalist; Visit Provider Family Medicine
DX: I21.4 Non-ST elevation (NSTEMI) myocardial infarction (principal); E10.10 Type 1 diabetes mellitus with ketoacidosis without coma; N17.9 Acute kidney failure, unspecified; I50.32 Chronic diastolic (congestive) heart failure; N39.0 Urinary tract infection, site not specified; I44.0 Atrioventricular block, first degree; I11.0 Hypertensive heart disease with heart failure; I25.10 Atherosclerotic heart disease of native coronary artery without angina pectoris; I48.0 Paroxysmal atrial fibrillation; E03.9 Hypothyroidism, unspecified; I27.21 Secondary pulmonary arterial hypertension; J45.20 Mild intermittent asthma, uncomplicated; E78.5 Hyperlipidemia, unspecified; I35.0 Nonrheumatic aortic (valve) stenosis; I34.0 Nonrheumatic mitral (valve) insufficiency; Z79.4 Long term (current) use of insulin; Z96.41 Presence of insulin pump (external) (internal); Z79.82 Long term (current) use of aspirin; Z79.01 Long term (current) use of anticoagulants; Z79.899 Other long term (current) drug therapy; Z87.891 Personal history of nicotine dependence; Z86.718 Personal history of other venous thrombosis and embolism; Z86.73 Personal history of transient ischemic attack (TIA), and cerebral infarction without residual deficits
CPT/HCPCS: 36415; 71045; 80048; 80053; 80061; 81001; 81002; 82009; 82803; 82962; 83036; 83735; 84100; 84439; 84443; 84484; 85025; 85027; 85347; 85610; 85730; 87077; 87086; 87088; 87186; 87493; 87506; 92928; 93005; 93306; 93460; 97162; 97166; 97530; 97535; 97802; 99285; J7030; J7040; A4216; C1725; C1751; C1769; C1874; C1887; C1894; C9600; J2405; J7799; Q9967

== ENCOUNTER 2018-05-26 08:12 | Inpatient (IN) | payer MEDICARE, SELFPAY ==
[2018-05-23 15:31] VITALS: BMI 17.7
[2018-05-26] VITALS (14 sets, daily range): BP systolic 95–155; BP diastolic 49–73; PULSE 59–82; RESP 11–20; TEMP 31.3–37.5; O2SAT 95–100; BMI 21.8; BMI 21.9
--- NOTE | 2018-05-26 08:27 | EKG12_ITS ---
Test Reason : WEAKNESS Blood Pressure : / mmHG Vent. Rate : 061 BPM Atrial Rate : 061 BPM P-R Int : 212 ms QRS Dur : 100 ms QT Int : 478 ms P-R-T Axes : 083 049 081 degrees QTc Int : 481 ms Sinus rhythm with 1st degree A-V block Nonspecific ST and T wave abnormality Prolonged QT Abnormal ECG Confirmed by EDWIN AGUILERA, BERTHA ([id number]), international editorial producer PAMELA HAYES ([id number]) on 05/31/2018 9:06:21 AM Referred By: Augie Valdivia Confirmed By:BERTHA PINEDA MD
--- NOTE | 2018-05-26 08:27 | RAD_ITS ---
STUDY: X-RAY CHEST REASON FOR EXAM: Female, 82 years old. Weakness TECHNIQUE: Single AP portable view of the chest. COMPARISON: Chest x-ray 05/21/2018 FINDINGS: There is hyperinflation of the lungs consistent with chronic obstructive lung disease (COPD). The lungs are clear. There is a small right pleural effusion. No left pleural effusion. No pneumothorax. Normal size heart. There are coronary artery stents seen. There is aortic atherosclerotic disease. Normal mediastinum and jarrell. Normal visualized pulmonary arteries. Normal visualized aortic arch and descending thoracic aorta. Normal visualized thoracic spine. Normal visualized ribs, clavicles, and shoulders. There is no demonstrated abnormality of the visualized soft tissue structures of the upper abdomen. RAD/Chest 1 View (Portable) IMPRESSION: Small right pleural effusion. COPD. Electronically Signed: Dulce Maria Rivas, at 9:10 EST Tel , Service support ,
[2018-05-26] MEDS: 0.9% Normal Saline 1,000 ML 150 ML IV (09:00)
[2018-05-26 09:10] LABS: Bacteria 0 SEEN /hpf (None Seen); Mucous, Urine 0 SEEN /hpf (<or=2+); Red Blood Cells-Urine 0 SEEN /hpf (0-5); White Blood Cells 0 SEEN /hpf (0-5)
[2018-05-26 09:13] LABS: Color, Urine Straw (Yellow); Glucose, Dipstick 50 mg/dl (Normal); Ketone-Dipstick Negative (Negative); Leukocyte Esterase-Dipstick Negative /ul (Negative); Nitrite-Dipstick Negative (Negative); Occult Blood-Urine 10 /ul (Negative); Protein-Dipstick Negative (Negative); Urine Bilirubin Dipstick Negative (Negative); Urine Clarity Clear (Clear); Urine Urobilinogen Normal (Normal)
[2018-05-26 09:44] LABS: Squamous Epithelial Cells - UA 0-5 SEEN /hpf (5-10)
[2018-05-26 09:54] LABS: Absolute Lymphocyte Count 0.66 X10^3/ul (0.83-4.51); Absolute Neutrophil Count 3.5 X10^3/uL (2.0-7.7); Basophil# 0.01 X10^3/uL; Basophil% 0.2 % (0-1); Eosinophil# 0.03 X10^3/uL; Eosinophils% 0.7 % (0-5); Hematocrit 33.3 % (37-47); Hemoglobin 10.9 g/dl (12.0-15.0); Lymphocyte # 0.66 X10^3/ul (4.0); Lymphocyte % 14.5 % (19-41); Mean Corp Hgb Conc 32.7 g/gl (32-36); Mean Corpuscular Hgb 30.2 pg (27.0-32.0); Mean Corpuscular Volume 92.2 fL (81-99); Mean Platelet Vol. 10.4 fl (6.2-12.0); Monocyte# 0.34 X10^3/uL; Monocyte% 7.5 % (0-10); Neutrophil # 3.48 X10^3/uL (2.7-7.7); Neutrophil % 76.7 % (47-70); Platelet Count 279 K/mm3 (150-450); RBC Distribution Width CV 15.1 % (11.6-14.6); RBC Distribution Width SD 48.8 fl (35.1-43.9); Red Blood Count 3.61 M/mm3 (4.2-5.4); White Blood Count 4.5 K/mm3 (4.4-11.0)
[2018-05-26 10:01] LABS: International Normalized Ratio 1.1; POSITIVE COUNT NO; POSITIVE DIFFERENTIAL NO; POSITIVE MORPHOLOGY NO; Prothrombin Time (Protime)PT. 13.7 SECONDS (11.7-14.9)
[2018-05-26 10:02] LABS: Partial Thromboplast Time 29.5 Seconds (24.1-36.2)
[2018-05-26 10:13] LABS: Lactic Acid 1.3 mmol/L (0.4-2.0)
[2018-05-26] MEDS: 0.9% Normal Saline 1,000 ML 999 ML IV ×2 (10:15)
[2018-05-26 10:16] LABS: ALB/GLOB Ratio 0.8 RATIO (0.9-2.4); AST(SGOT) 29 U/L (15-37); Alanine Aminotransfer ALT/SGPT 28 U/L (13-56); Albumin, Serum 3.1 g/dL (3.2-5.0); Alkaline Phosphatase 127 U/L (45-117); Anion Gap 9 (5-15); BUN 16 mg/dL (7-18); BUN/Creat Ratio 20.4 RATIO (10-20); Calcium,Total 8.5 mg/dL (8.5-10.1); Chloride 102 mmol/L (98-107); Creatinine, Serum 0.78 mg/dL (0.55-1.02); EST Glomerular Filtration Rate 75 mL/min (>60); Est Glom Filt Rate - Afr Amer 91 mL/min (>60); Globulin 3.8 g/dL (2.2-4.2); Glucose 153 mg/dL (74-106); Potassium 3.7 mmol/L (3.5-5.1); Protein, Total 6.9 g/dL (6.4-8.2); Sodium Level 139 mmol/L (136-145); Thyroid Stim Hormone (TSH) 4.11 uIU/mL (0.358-3.74)
[2018-05-26 11:37] LABS: T4 Free Direct 1.59 ng/dL (0.76-1.46)
--- NOTE | 2018-05-26 11:41 | ED.RN ---
NOTIFIED DR. WINTER OF TROPONIN LEVEL
--- NOTE | 2018-05-26 14:10 | PCM.HP.STD ---
Problem List (1) Stented coronary artery Status: Acute Comment: Successful PTCA/ANNA md LAD with a 2.25 x 38 Promus, followed immediately downstream with a 2.25 x 12 Promus Synergy. Chronically occluded CX. Per DJN @ [facility] 05/23/18 (2) HLD (hyperlipidemia) Status: Chronic Qualifiers: (3) Essential (primary) hypertension Status: Chronic (4) Chronic diastolic (congestive) heart failure Status: Chronic (5) Aortic stenosis Status: Chronic Qualifiers: Comment: Mild to moderate [facility] see report for measurements (6) Diabetes type 1, controlled Status: Chronic Qualifiers: Comment: dx : last exacerbation : dka : years ago hypoglycemic episode : 02/06 er visit :years ago (7) Asthma Status: Chronic Qualifiers: (8) Secondary pulmonary arterial hypertension Status: Chronic Comment: RVSP 53mm hg per echo 11/16/2017 done @ [facility] (9) Nonrheumatic mitral (valve) insufficiency Status: Chronic Comment: Moderate to severe regurgitation per echo [facility]16/[facility] (10) Paroxysmal atrial fibrillation Status: Chronic History of Present Illness Date of Admission: 05/26/18 Chief Complaint: Confusion and hypothermia The patient is a 82 year old F with a PMH as below who was recently discharged after meeting 2 cardiac stents to the mid LAD. She has been having diarrhea for some time and has had an enteric stool study as well as C. difficile done on her admission a few days ago and those were negative. She is states that she got up to go the bathroom but she is not sure when and she was trying to crawl to the bathroom when she could not make it and ended up urinating over herself. Her family found her on the floor and they are unsure as to how long she had been there. She denies any injuries, fevers, chills, chest pain, shortness of breath. In the ER her UA was normal, she was recently treated for an E. coli UTI, her TSH was slightly elevated to 4.11 also with an elevated free T4-1 0.59. Her blood sugar is stable for her at 153, and her troponin is trending down from 4.18 on May 21 to 0.885 today. We are unsure as to the etiology of her hypothermia, per the family a window in that part of the house had been slightly cracked open. Past Medical History Past Medical History (Chronic Problems): Chronic Problems (Last Updated 05/20/18 @ 22:39 by Rah Faulkner MD) HLD (hyperlipidemia) (Chronic) TIA (transient ischemic attack) (Chronic) Essential (primary) hypertension (Chronic) Chronic diastolic (congestive) heart failure (Chronic) Aortic stenosis (Chronic) Mild to moderate per echo 11/16/17 done @ [facility]: see report for measurements Pulmonic valve regurgitation (Chronic) Moderate per echo 11/16/17 Done @ [facility] Diabetes type 1, controlled (Chronic) dx : last exacerbation : dka : years ago hypoglycemic episode : 02/06 er visit :years ago Asthma (Chronic) Secondary pulmonary arterial hypertension (Chronic) RVSP 53mm hg per echo 11/16/2017 done @ [facility] Nonrheumatic mitral (valve) insufficiency (Chronic) Moderate to severe regurgitation per echo 11/16/2017 done @ [facility] Paroxysmal atrial fibrillation (Chronic) DVT (deep venous thrombosis) (Chronic) Right-sided heart failure (Chronic) Uncontrolled type 1 diabetes mellitus with complication, without long-term current use of insulin (Chronic) Doing fairly well. Appetite is fairly good. She reports no issues. Swelling in legs sl improved. Medical History: Medical History (Last Updated 05/20/18 @ 22:39 by Rah Faulkner MD) Essential (primary) hypertension (Chronic) I10 Chronic diastolic (congestive) heart failure (Chronic) I50.32 Aortic stenosis (Chronic) I35.0 Mild to moderate per echo 11/16/17 done @ [facility]: see report for measurements Pulmonic valve regurgitation (Chronic) I37.1 Moderate per echo 11/16/17 Done @ [facility] Diabetes type 1, controlled (Chronic) E10.9 dx : last exacerbation : dka : years ago hypoglycemic episode : 02/06 er visit :years ago Asthma (Chronic) J45.909 Secondary pulmonary arterial hypertension (Chronic) I27.21 RVSP 53mm hg per echo 11/16/2017 done @ [facility] Nonrheumatic mitral (valve) insufficiency (Chronic) I34.0 Moderate to severe regurgitation per echo 11/16/2017 done @ [facility] Paroxysmal atrial fibrillation (Chronic) I48.0 DVT (deep venous thrombosis) (Chronic) I82.409 Right-sided heart failure (Chronic) I50.810 Uncontrolled type 1 diabetes mellitus with complication, without long-term current use of insulin (Chronic) E10.8, E10.65 Doing fairly well. Appetite is fairly good. She reports no issues. Swelling in legs sl improved. Bone spur M77.9 Cataracts, bilateral H26.9 Tricuspid valve regurgitation, nonrheumatic I36.1 moderate per echo 11/16/2017 done @ [facility] Allergies No Known Allergies Allergy (Verified 05/26/18 09:56) Home Medications: Ambulatory Orders Medication Instructions Recorded furosemide 40 mg tablet 40 mg PO DAILY 09/06/17 Insulin Lispro [Humalog] See Protocol SC CONT 09/25/17 Levothyroxine Sodium [Synthroid] 75 mcg PO SUSA 02/13/18 Amiodarone HCl 200 mg PO DAILY 05/20/18 Levothyroxine [Synthroid] 50 mcg PO MOTUWETHFR 05/20/18 Amlodipine [Norvasc] 5 mg PO DAILY 05/26/18 Apixaban [Eliquis] 2.5 mg PO BID 05/26/18 Aspirin [Aspirin, Baby] 81 mg PO DAILY@0800 05/26/18 Atorvastatin Calcium [Lipitor] 40 mg PO QHS 05/26/18 Carvedilol [Coreg] 3.125 mg PO BID 05/26/18 Clopidogrel Bisulfate [Plavix] 75 mg PO DAILY 05/26/18 Insulin Glargine [Lantus (BKC)] 25 units SC DAILY PRN PRN 05/26/18 Surgical History: Surgical History (Last Updated 05/23/18 @ 16:53 by Rosemary Gregory) Stented coronary artery (Acute) Onset Date: 05/23/18 Z95.5 Successful PTCA/ANNA LAD with a 2.25 x 38 Promus, followed immediately downstream with a 2.25 x 12 Promus Synergy. Chronically occluded CX. Per DJN @ [facility] 05/23/18 Surgical History: - - Tonsillectomy, insulin pump. Psychiatric History: No pertinent psych hx ALLIGATOR HUNTER History: No pertinent ALLIGATOR HUNTER history Smoking Status: Former smoker - *Family History Sibling Family History: Family History (Last Reviewed 05/02/18 @ 15:35 by Camille Escalante) Father Kidney disease Cancer History Items: Heart Disease - Had some cardiac surgery. Maternal Family History: Family History (Last Reviewed 05/02/18 @ 15:35 by Camille Escalante) Father Kidney disease Cancer History Items: - - Patient denies any market maternal family history including heart disease, diabetes, cancer and states that her mother passed at age 94. Paternal Family History: Family History (Last Reviewed 05/02/18 @ 15:35 by Camille Escalante) Father Kidney disease Cancer History Items: Cancer, Heart Disease, Renal Disease Review of Systems Constitutional: Denies: Chills, Fever, Weight Change HEENT: Denies: Head Aches, Sinus Congestion, Sinus Drainage Cardiovascular: Denies: Chest Pain, Palpitations Respiratory: Denies: Cough, Shortness of breath at rest, Sputum production Gastrointestinal: Denies: Abdominal Pain, Nausea, Vomiting Genitourinary: Denies: Dysuria Musculoskeletal: Denies: Joint Pain, Joint Tenderness Skin: Denies: Rash, Wounds Neurological: Denies: Numbness, Tingling, Focal weakness Psychiatric: Denies: Anxiety, Depression Hematologic/ Lymphatic: Denies: Easy Bruising, Easy Bleeding VTE Information - Inpt Only VTE Present on Admission: No Objective: General: Alert, Oriented x3, Cooperative, No apparent distress HEENT: Atraumatic, PERRLA, EOMI, Normocephalic Oral: Moist Mucosa Neck: Supple, No JVD, Trachea Midline Lungs: Clear to auscultation, Normal air movement, No rhonchi, No wheeze, No rales Cardiovascular: Regular rate, Regular Rhythm, Normal S1, Normal S2, Murmur - 2/6 JENNIFER Abdomen: Soft, Non Tender, Non-Distended, No Hepato-splenomegaly Extremities: No edema, Capillary Refill Less than 3 Seconds Skin: No rashes, No breakdown, incision from cath is clean Neurological: Neuro grossly intact, Sensory exam intact to light touch and pain, B/l LE 4/5 Psych/Mental Status: Normal Affect, Appropriate - Physical Exam Vital Signs Temp Pulse Resp BP Pulse Ox 99.1 F 74 14 104/49 L 99 05/26/18 13:10 05/26/18 13:10 05/26/18 13:10 05/26/18 13:10 05/26/18 13:10 Oxygen Flow Rate (L/min) 2 Oxygen Delivery Method Nasal Cannula Weight: 119 lb 4.321 oz Body Mass Index (BMI) 21.8 Finger Stick Blood Glucose 449 Laboratory Tests Past 24 Hrs 05/26/18 05/26/18 05/26/18 09:00 09:30 09:30 WBC 4.5 RBC 3.61 L Hgb 10.9 L Hct 33.3 L MCV 92.2 MCH 30.2 MCHC 32.7 RDW 15.1 H RDW Differential 48.8 H Plt Count 279 MPV 10.4 Immature Gran % (Auto) 0.400 Neut % (Auto) 76.7 H Lymph % (Auto) 14.5 L Barry % (Auto) 7.5 Eos % (Auto) 0.7 Baso % (Auto) 0.2 Absolute Neuts (auto) 3.5 Absolute Lymphs (auto) 0.66 L Total Counted Not Reportable PT 13.7 INR 1.1 APTT 29.5 Sodium Potassium Chloride Carbon Dioxide Anion Gap BUN Creatinine Estim Creat Clear Calc Est GFR (MDRD) Af Amer Est GFR (MDRD) Non-Af BUN/Creatinine Ratio Glucose Lactic Acid Calcium Magnesium Total Bilirubin AST ALT Alkaline Phosphatase Troponin I Total Protein Albumin Globulin Albumin/Globulin Ratio TSH Free T4 Urine Color Straw Urine Clarity Clear Urine pH 7.0 Ur Specific [place] 1.010 Urine Protein Negative Urine Glucose (UA) 50 H Urine Ketones Negative Urine Occult Blood 10 H Urine Nitrite Negative Urine Bilirubin Negative Urine Urobilinogen Normal Ur Leukocyte Esterase Negative Urine RBC 0 SEEN Urine WBC 0 SEEN Ur Squamous Epith Cells 0-5 SEEN Urine Bacteria 0 SEEN Urine Mucus 0 SEEN Acetone Level 05/26/18 05/26/18 05/26/18 09:30 09:30 09:30 WBC RBC Hgb Hct MCV MCH MCHC RDW RDW Differential Plt Count MPV Immature Gran % (Auto) Neut % (Auto) Lymph % (Auto) Barry % (Auto) Eos % (Auto) Baso % (Auto) Absolute Neuts (auto) Absolute Lymphs (auto) Total Counted PT INR APTT Sodium 139 Potassium 3.7 Chloride 102 Carbon Dioxide 28.0 Anion Gap 9 BUN 16 Creatinine 0.78 Estim Creat Clear Calc 34.90 Est GFR (MDRD) Af Amer 91 Est GFR (MDRD) Non-Af 75 BUN/Creatinine Ratio 20.4 H Glucose 153 H Lactic Acid 1.3 Calcium 8.5 Magnesium 2.0 Total Bilirubin 0.40 AST 29 ALT 28 Alkaline Phosphatase 127 H Troponin I Total Protein 6.9 Albumin 3.1 L Globulin 3.8 Albumin/Globulin Ratio 0.8 L TSH 4.11 H Free T4 Urine Color Urine Clarity Urine pH Ur Specific [place] Urine Protein Urine Glucose (UA) Urine Ketones Urine Occult Blood Urine Nitrite Urine Bilirubin Urine Urobilinogen Ur Leukocyte Esterase Urine RBC Urine WBC Ur Squamous Epith Cells Urine Bacteria Urine Mucus Acetone Level NEGATIVE 05/26/18 09:30 WBC RBC Hgb Hct MCV MCH MCHC RDW RDW Differential Plt Count MPV Immature Gran % (Auto) Neut % (Auto) Lymph % (Auto) Barry % (Auto) Eos % (Auto) Baso % (Auto) Absolute Neuts (auto) Absolute Lymphs (auto) Total Counted PT INR APTT Sodium Potassium Chloride Carbon Dioxide Anion Gap BUN Creatinine Estim Creat Clear Calc Est GFR (MDRD) Af Amer Est GFR (MDRD) Non-Af BUN/Creatinine Ratio Glucose Lactic Acid Calcium Magnesium Total Bilirubin AST ALT Alkaline Phosphatase Troponin I 0.885 H* Total Protein Albumin Globulin Albumin/Globulin Ratio TSH Free T4 1.59 H Urine Color Urine Clarity Urine pH Ur Specific [place] Urine Protein Urine Glucose (UA) Urine Ketones Urine Occult Blood Urine Nitrite Urine Bilirubin Urine Urobilinogen Ur Leukocyte Esterase Urine RBC Urine WBC Ur Squamous Epith Cells Urine Bacteria Urine Mucus Acetone Level Assessment/Plan All Active Problems (Last Updated 05/20/18 @ 22:39 by Rah Faulkner MD) Stented coronary artery (Acute 05/23/18) Arteriosclerotic heart disease (ASHD) (Acute 05/23/18) 1. Hypothermia/diarrhea -Unsure as to the precise etiology of either -She had a stool workup recently which was negative, will not repeat -Start with antidiarrheal medication -She is now at a normal body temperature after bear hugger and warm saline infusion -We will monitor and start IV fluids, for dehydration given lack of PO and diarrhea -PT/OT for evaluation and possible placement in a shelter facility 2. NSTEMI/A. fib/HTN/chronic diastolic heart failure/HLD/CAD -Troponin on admission previously was 0.029 and increased ultimately to 4.18, and is now 0.885 -Cardiac catheter performed earlier in the week with 2 stents placed to the mid LAD -Continue with aspirin and Plavix -Continue with amiodarone, Norvasc, Coreg, and Lipitor -Continue with Eliquis will hold Lasix for today 3. DM 1 -Continue with her home insulin regimen -SSI and Accu-Cheks 4. Hypothyroidism -Stable -Continue with Synthroid DVT: Eliquis Code Visit Inpatient E&M: 78730 Init Hosp L3
--- NOTE | 2018-05-26 14:14 | HP.PCM_ITS ---
Problem List (1) Stented coronary artery Status: Acute Comment: Successful PTCA/ANNA md LAD with a 2.25 x 38 Promus, followed immediately downstream with a 2.25 x 12 Promus Synergy. Chronically occluded CX. Per DJN @ [facility] 05/23/18 (2) HLD (hyperlipidemia) Status: Chronic Qualifiers: (3) Essential (primary) hypertension Status: Chronic (4) Chronic diastolic (congestive) heart failure Status: Chronic (5) Aortic stenosis Status: Chronic Qualifiers: Comment: Mild to moderate [facility] see [facility] for [facility] (6) Diabetes type 1, controlled Status: Chronic Qualifiers: Comment: dx : last exacerbation : dka : years ago hypoglycemic episode : 02/06 er visit :years ago (7) Asthma Status: Chronic Qualifiers: (8) Secondary pulmonary arterial hypertension Status: Chronic Comment: RVSP 53mm hg per echo 11/16/2017 done @ [facility] (9) Nonrheumatic mitral (valve) insufficiency Status: Chronic Comment: Moderate to severe regurgitation per echo [facility]2017 [facility] (10) Paroxysmal atrial fibrillation Status: Chronic History of Present Illness Date of Admission: 05/26/18 Chief Complaint: Confusion and hypothermia The patient is a 82 year old F with a PMH as below who was recently discharged after meeting 2 cardiac stents to the mid LAD. She has been having diarrhea for some time and has had an enteric stool study as well as C. difficile done on her admission a few days ago and those were negative. She is states that she got up to go the bathroom but she is not sure when and she was trying to crawl to the bathroom when she could not make it and ended up urinating over herself. Her family found her on the floor and they are unsure as to how long she had been there. She denies any injuries, fevers, chills, chest pain, shortness of breath. In the ER her UA was normal, she was recently treated for an E. coli UTI, her TSH was slightly elevated to 4.11 also with an elevated free T4-1 0.59. Her blood sugar is stable for her at 153, and her troponin is trending down from 4.18 on May 21 to 0.885 today. We are unsure as to the etiology of her hypothermia, per the family a window in that part of the house had been slightly cracked open. Past Medical History Past Medical History (Chronic Problems): Chronic Problems (Last Updated 05/20/18 @ 22:39 by Rah Faulkner MD) HLD (hyperlipidemia) (Chronic) TIA (transient ischemic attack) (Chronic) Essential (primary) hypertension (Chronic) Chronic diastolic (congestive) heart failure (Chronic) Aortic stenosis (Chronic) Mild to moderate per echo 11/16/17 done @ [facility]: see report for measurements Pulmonic valve regurgitation (Chronic) Moderate per echo 11/16/17 Done @ [facility] Diabetes type 1, controlled (Chronic) dx : last exacerbation : dka : years ago hypoglycemic episode : 02/06 er visit :years ago Asthma (Chronic) Secondary pulmonary arterial hypertension (Chronic) RVSP 53mm hg per echo 11/16/2017 done @ [facility] Nonrheumatic mitral (valve) insufficiency (Chronic) Moderate to severe regurgitation per echo 11/16/2017 done @ [facility] Paroxysmal atrial fibrillation (Chronic) DVT (deep venous thrombosis) (Chronic) Right-sided heart failure (Chronic) Uncontrolled type 1 diabetes mellitus with complication, without long-term current use of insulin (Chronic) Doing fairly well. Appetite is fairly good. She reports no issues. Swelling in legs sl improved. Medical History: Medical History (Last Updated 05/20/18 @ 22:39 by Rah Faulkner MD) Essential (primary) hypertension (Chronic) I10 Chronic diastolic (congestive) heart failure (Chronic) I50.32 Aortic stenosis (Chronic) I35.0 Mild to moderate per echo 11/16/17 done @ [facility]: see report for measurements Pulmonic valve regurgitation (Chronic) I37.1 Moderate per echo 11/16/17 Done @ [facility] Diabetes type 1, controlled (Chronic) E10.9 dx : last exacerbation : dka : years ago hypoglycemic episode : 02/06 er visit :years ago Asthma (Chronic) J45.909 Secondary pulmonary arterial hypertension (Chronic) I27.21 RVSP 53mm hg per echo 11/16/2017 done @ [facility] Nonrheumatic mitral (valve) insufficiency (Chronic) I34.0 Moderate to severe regurgitation per echo 11/16/2017 done @ [facility] Paroxysmal atrial fibrillation (Chronic) I48.0 DVT (deep venous thrombosis) (Chronic) I82.409 Right-sided heart failure (Chronic) I50.810 Uncontrolled type 1 diabetes mellitus with complication, without long-term current use of insulin (Chronic) E10.8, E10.65 Doing fairly well. Appetite is fairly good. She reports no issues. Swelling in legs sl improved. Bone spur M77.9 Cataracts, bilateral H26.9 Tricuspid valve regurgitation, nonrheumatic I36.1 moderate per echo 11/16/2017 done @ [facility] Allergies No Known Allergies Allergy (Verified 05/26/18 09:56) Home Medications: Ambulatory Orders Medication Instructions Recorded furosemide 40 mg tablet 40 mg PO DAILY 09/06/17 Insulin Lispro [Humalog] See Protocol SC CONT 09/25/17 Levothyroxine Sodium [Synthroid] 75 mcg PO SUSA 02/13/18 Amiodarone HCl 200 mg PO DAILY 05/20/18 Levothyroxine [Synthroid] 50 mcg PO MOTUWETHFR 05/20/18 Amlodipine [Norvasc] 5 mg PO DAILY 05/26/18 Apixaban [Eliquis] 2.5 mg PO BID 05/26/18 Aspirin [Aspirin, Baby] 81 mg PO DAILY@0800 05/26/18 Atorvastatin Calcium [Lipitor] 40 mg PO QHS 05/26/18 Carvedilol [Coreg] 3.125 mg PO BID 05/26/18 Clopidogrel Bisulfate [Plavix] 75 mg PO DAILY 05/26/18 Insulin Glargine [Lantus (BKC)] 25 units SC DAILY PRN PRN 05/26/18 Surgical History: Surgical History (Last Updated 05/23/18 @ 16:53 by Rosemary Gregory) Stented coronary artery (Acute) Onset Date: 05/23/18 Z95.5 Successful PTCA/ANNA LAD with a 2.25 x 38 Promus, followed immediately downstream with a 2.25 x 12 Promus Synergy. Chronically occluded CX. Per DJN @ [facility] 05/23/18 Surgical History: - - Tonsillectomy, insulin pump. Psychiatric History: No pertinent psych hx [employer] History: No pertinent [employer] history Smoking Status: Former smoker - *Family History Sibling Family History: Family History (Last Reviewed 05/02/18 @ 15:35 by Camille Escalante) Father Kidney disease Cancer History Items: Heart Disease - Had some cardiac surgery. Maternal Family History: Family History (Last Reviewed 05/02/18 @ 15:35 by Camille Escalante) Father Kidney disease Cancer History Items: - - Patient denies any market maternal family history including heart disease, diabetes, cancer and states that her mother passed at age 94. Paternal Family History: Family History (Last Reviewed 05/02/18 @ 15:35 by Camille Escalante) Father Kidney disease Cancer History Items: Cancer, Heart Disease, Renal Disease Review of Systems Constitutional: Denies: Chills, Fever, Weight Change HEENT: Denies: Head Aches, Sinus Congestion, Sinus Drainage Cardiovascular: Denies: Chest Pain, Palpitations Respiratory: Denies: Cough, Shortness of breath at rest, Sputum production Gastrointestinal: Denies: Abdominal Pain, Nausea, Vomiting Genitourinary: Denies: Dysuria Musculoskeletal: Denies: Joint Pain, Joint Tenderness Skin: Denies: Rash, Wounds Neurological: Denies: Numbness, Tingling, Focal weakness Psychiatric: Denies: Anxiety, Depression Hematologic/ Lymphatic: Denies: Easy Bruising, Easy Bleeding VTE Information - Inpt Only VTE Present on Admission: No Objective: General: Alert, Oriented x3, Cooperative, No apparent distress HEENT: Atraumatic, PERRLA, EOMI, Normocephalic Oral: Moist Mucosa Neck: Supple, No JVD, Trachea Midline Lungs: Clear to auscultation, Normal air movement, No rhonchi, No wheeze, No ra les Cardiovascular: Regular rate, Regular Rhythm, Normal S1, Normal S2, Murmur - 2/6 JENNIFER Abdomen: Soft, Non Tender, Non-Distended, No Hepato-splenomegaly Extremities: No edema, Capillary Refill Less than 3 Seconds Skin: No rashes, No breakdown, incision from cath is clean Neurological: Neuro grossly intact, Sensory exam intact to light touch and pain, B/l LE 4/5 Psych/Mental Status: Normal Affect, Appropriate - Physical Exam Vital Signs Temp Pulse Resp BP Pulse Ox 99.1 F 74 14 104/49 L 99 05/26/18 13:10 05/26/18 13:10 05/26/18 13:10 05/26/18 13:10 05/26/18 13:10 Oxygen Flow Rate (L/min) 2 Oxygen Delivery Method Nasal Cannula Weight: 119 lb 4.321 oz Body Mass Index (BMI) 21.8 Finger Stick Blood Glucose 449 Laboratory Tests Past 24 Hrs 05/26/18 05/26/18 05/26/18 09:00 09:30 09:30 WBC 4.5 RBC 3.61 L Hgb 10.9 L Hct 33.3 L MCV 92.2 MCH 30.2 MCHC 32.7 RDW 15.1 H RDW Differential 48.8 H Plt Count 279 MPV 10.4 Immature Gran % (Auto) 0.400 Neut % (Auto) 76.7 H Lymph % (Auto) 14.5 L [place] % (Auto) 7.5 Eos % (Auto) 0.7 Baso % (Auto) 0.2 Absolute Neuts (auto) 3.5 Absolute Lymphs (auto) 0.66 L Total Counted Not Reportable PT 13.7 INR 1.1 APTT 29.5 Sodium Potassium Chloride Carbon Dioxide Anion Gap BUN Creatinine Estim Creat Clear Calc Est GFR (MDRD) Af Amer Est GFR (MDRD) Non-Af BUN/Creatinine Ratio Glucose Lactic Acid Calcium Magnesium Total Bilirubin AST ALT Alkaline Phosphatase Troponin I Total Protein Albumin Globulin Albumin/Globulin Ratio TSH Free T4 Urine Color Straw Urine Clarity Clear Urine pH 7.0 Ur Specific [place] 1.010 Urine Protein Negative Urine Glucose (UA) 50 H Urine Ketones Negative Urine Occult Blood 10 H Urine Nitrite Negative Urine Bilirubin Negative Urine Urobilinogen Normal Ur Leukocyte Esterase Negative Urine RBC 0 SEEN Urine WBC 0 SEEN Ur Squamous Epith Cells 0-5 SEEN Urine Bacteria 0 SEEN Urine Mucus 0 SEEN Acetone Level 05/26/18 05/26/18 05/26/18 09:30 09:30 09:30 WBC RBC Hgb Hct MCV MCH MCHC RDW RDW Differential Plt Count MPV Immature Gran % (Auto) Neut % (Auto) Lymph % (Auto) [place] % (Auto) Eos % (Auto) Baso % (Auto) Absolute Neuts (auto) Absolute Lymphs (auto) Total Counted PT INR APTT Sodium 139 Potassium 3.7 Chloride 102 Carbon Dioxide 28.0 Anion Gap 9 BUN 16 Creatinine 0.78 Estim Creat Clear Calc 34.90 Est GFR (MDRD) Af Amer 91 Est GFR (MDRD) Non-Af 75 BUN/Creatinine Ratio 20.4 H Glucose 153 H Lactic Acid 1.3 Calcium 8.5 Magnesium 2.0 Total Bilirubin 0.40 AST 29 ALT 28 Alkaline Phosphatase 127 H Troponin I Total Protein 6.9 Albumin 3.1 L Globulin 3.8 Albumin/Globulin Ratio 0.8 L TSH 4.11 H Free T4 Urine Color Urine Clarity Urine pH Ur Specific [place] Urine Protein Urine Glucose (UA) Urine Ketones Urine Occult Blood Urine Nitrite Urine Bilirubin Urine Urobilinogen Ur Leukocyte Esterase Urine RBC Urine WBC Ur Squamous Epith Cells Urine Bacteria Urine Mucus Acetone Level NEGATIVE 05/26/18 09:30 WBC RBC Hgb Hct MCV MCH MCHC RDW RDW Differential Plt Count MPV Immature Gran % (Auto) Neut % (Auto) Lymph % (Auto) [place] % (Auto) Eos % (Auto) Baso % (Auto) Absolute Neuts (auto) Absolute Lymphs (auto) Total Counted PT INR APTT Sodium Potassium Chloride Carbon Dioxide Anion Gap BUN Creatinine Estim Creat Clear Calc Est GFR (MDRD) Af Amer Est GFR (MDRD) Non-Af BUN/Creatinine Ratio Glucose Lactic Acid Calcium Magnesium Total Bilirubin AST ALT Alkaline Phosphatase Troponin I 0.885 H* Total Protein Albumin Globulin Albumin/Globulin Ratio TSH Free T4 1.59 H Urine Color Urine Clarity Urine pH Ur Specific [place] Urine Protein Urine Glucose (UA) Urine Ketones Urine Occult Blood Urine Nitrite Urine Bilirubin Urine Urobilinogen Ur Leukocyte Esterase Urine RBC Urine WBC Ur Squamous Epith Cells Urine Bacteria Urine Mucus Acetone Level Assessment/Plan All Active Problems (Last Updated 05/20/18 @ 22:39 by Rah Faulkner MD) Stented coronary artery (Acute 05/23/18) Arteriosclerotic heart disease (ASHD) (Acute 05/23/18) 1. Hypothermia/diarrhea -Unsure as to the precise etiology of either -She had a stool workup recently which was negative, will not repeat -Start with antidiarrheal medication -She is now at a normal body temperature after bear hugger and warm saline infusion -We will monitor and start IV fluids, for dehydration given lack of PO and diarrhea -PT/OT for evaluation and possible placement in a [facility] facility 2. NSTEMI/A. fib/HTN/chronic diastolic heart failure/HLD/CAD -Troponin on admission previously was 0.029 and increased ultimately to 4.18, and is now 0.885 -Cardiac catheter performed earlier in the week with 2 stents placed to the mid LAD -Continue with aspirin and Plavix -Continue with amiodarone, Norvasc, Coreg, and Lipitor -Continue with Eliquis will hold Lasix for today 3. DM 1 -Continue with her home insulin regimen -SSI and Accu-Cheks 4. Hypothyroidism -Stable -Continue with Synthroid DVT: Eliquis Code Visit Inpatient E&M: 24632 Init Hosp L3
[2018-05-26] MEDS: 0.9% Normal Saline 1,000 ML 100 ML IV ×2 (15:45→21:57)
[2018-05-26 15:46] LABS: Bedside Glucose 225 mg/dL (70-110)
[2018-05-26 15:46] LABS: Absolute Lymphocyte Count 0.92 X10^3/ul (0.83-4.51); Eosinophil# 0.01 X10^3/uL; Eosinophils% 0.2 % (0-5); Hematocrit 27.1 % (37-47); Hemoglobin 8.8 g/dl (12.0-15.0); Lymphocyte # 0.92 X10^3/ul (4.0); Lymphocyte % 16.8 % (19-41); Mean Corp Hgb Conc 32.5 g/gl (32-36); Mean Corpuscular Hgb 30.2 pg (27.0-32.0); Mean Corpuscular Volume 93.1 fL (81-99); Mean Platelet Vol. 10.3 fl (6.2-12.0); Monocyte# 0.49 X10^3/uL; Neutrophil # 4.03 X10^3/uL (2.7-7.7); Neutrophil % 73.6 % (47-70); Platelet Count 232 K/mm3 (150-450); RBC Distribution Width CV 15.6 % (11.6-14.6); RBC Distribution Width SD 53.1 fl (35.1-43.9); Red Blood Count 2.91 M/mm3 (4.2-5.4); White Blood Count 5.5 K/mm3 (4.4-11.0)
[2018-05-26 15:47] LABS: POSITIVE COUNT NO; POSITIVE DIFFERENTIAL NO; POSITIVE MORPHOLOGY NO
--- NOTE | 2018-05-26 16:15 | ED.VISSUMM ---
- ER Visit Summary Date of Service: 05/26/18 Chief Complaint: Weakness She is now on Eliquis Plavix and aspirin. History of Present Illness: The patient is a 82 F who notes that she was just in the hospital for DKA and a NSTEMI. She received a heart cath with 2 stents. She has an insulin pump. She notes that she has had diarrhea since before her admission and that has continued. During her admission she had negative stool cultures. Last night was noted to be weak and somewhat confused. She went to bed around 1030. At some point she got out of bed she states she rolled onto the floor and then crawled to the regards to the bathroom. She did not make it there and was found by family. She has a history of hypothyroidism and on 3 2 her TSH was 0.73 the heat was on in the house.. Physical Examination: Core body temperature is 88 degrees blood pressure 155/73 heart rate 68 respirations 17 pulse ox is 99% Gen: Well-nourished well-developed Head: Normocephalic atraumatic Eyes: Perrl EOMI ENT: TMs clear no rhinorrhea moist mucous membranes Neck: Supple no lymphadenopathy no JVD nontender CVS: Regular rate rhythm no murmurs normal S1-S2 Respiratory: No distress clear to auscultation bilaterally chest nontender Abdomen: Soft nontender nondistended normal bowel sounds no masses Back: Nontender Extremity: Nontender no edema Skin: Normal color various ecchymoses on extremities cold skin Neuro: alert orientated ?3 CN II-XII intact normal strength patient is very slow to answer Psych: Normal affect normal mood Test Results: EKG shows sinus with a rate of 61. White count 4.5. Hemoglobin 10.9. INR 1.1. Lactic acid 1.3. Ketones are negative. Troponin at 0.88 which is trending down from before. Chest x-ray showed small effusion on the right. TSH obtained and was slightly elevated and free T4 was also slightly elevated. Emergency Department Course and Treatment: Patient received warm fluids as well as bear hugger. When she was warming up around 90-93 degrees she had a transient episode of hypotension. She received 2 L of IV fluids and the hypotension resolved. I spoke with [facility] as well as Dr. Worthy from medicine. Our plan is admission to the hospital. At this point I do not have a clear etiology for the patient's hypothermia. Impression: 1. Hypothermia 2. Hypertension 3. Critical care time 35 minutes. This note was generated with [employer] dictation software. It may contain incorrect words, spelling, and punctuation that were not noted in review of the chart prior to signing ED Disposition - Plan for ED Patient: Disposition: Acute Care Hospital [facility]
--- NOTE | 2018-05-26 16:19 | ED.DCSUM_ITS ---
- ER Visit Summary Date of Service: 05/26/18 Chief Complaint: Weakness She is now on Eliquis Plavix and aspirin. History of Present Illness: The patient is a 82 F who notes that she was just in the hospital for DKA and a NSTEMI. She received a heart cath with 2 stents. She has an insulin pump. She notes that she has had diarrhea since before her admission and that has continued. During her admission she had negative stool cultures. Last night was noted to be weak and somewhat confused. She went to bed around 1030. At some point she got out of bed she states she rolled onto the floor and then crawled to the regards to the bathroom. She did not make it there and was found by family. She has a history of hypothyroidism and on 3 2 her TSH was 0.73 the heat was on in the house.. Physical Examination: Core body temperature is 88 degrees blood pressure 155/73 heart rate 68 respirations 17 pulse ox is 99% Gen: Well-nourished well-developed Head: Normocephalic atraumatic Eyes: Perrl EOMI ENT: TMs clear no rhinorrhea moist mucous membranes Neck: Supple no lymphadenopathy no JVD nontender CVS: Regular rate rhythm no murmurs normal S1-S2 Respiratory: No distress clear to auscultation bilaterally chest nontender Abdomen: Soft nontender nondistended normal bowel sounds no masses Back: Nontender Extremity: Nontender no edema Skin: Normal color various ecchymoses on extremities cold skin Neuro: alert orientated ?3 CN II-XII intact normal strength patient is very slow to answer Psych: Normal affect normal mood Test Results: EKG shows sinus with a rate of 61. White count 4.5. Hemoglobin 10.9. INR 1.1. Lactic acid 1.3. Ketones are negative. Troponin at 0.88 which is trending down from before. Chest x-ray showed small effusion on the right. TSH obtained and was slightly elevated and free T4 was also slightly elevated. Emergency Department Course and Treatment: Patient received warm fluids as well as bear hugger. When she was warming up around 90-93 degrees she had a transient episode of hypotension. She received 2 L of IV fluids and the hypotension resolved. I spoke with [facility] from [facility] as well as Dr. Worthy from medicine. Our plan is admission to the hospital. At this point I do not have a clear etiology for the patient's hypothermia. Impression: 1. Hypothermia 2. Hypertension 3. Critical care time 35 minutes. This note was generated with [employer] dictation software. It may contain incorrect words, spelling, and punctuation that were not noted in review of the chart prior to signing ED Disposition - Plan for ED Patient: Disposition: Acute Care Hospital [facility]
[2018-05-26] MEDS: Insulin Lispro 100 UNIT/ML INSULN.PEN SQ ×2 (17:13→21:59)
[2018-05-26] MEDS: Atorvastatin Calcium 40 MG Tablet PO (21:58)
[2018-05-26] MEDS: Carvedilol 3.125 MG TABLET PO (21:58)
[2018-05-26] MEDS: APIXABAN 2.5 MG TABLET PO (21:58)
[2018-05-26 23:01] LABS: Bedside Glucose 373 mg/dL (70-110)
[2018-05-27] VITALS (11 sets, daily range): BP systolic 95–133; BP diastolic 43–56; PULSE 66–73; RESP 14–16; TEMP 36.4–36.8; O2SAT 94–99
[2018-05-27 06:16] LABS: Absolute Lymphocyte Count 1.58 X10^3/ul (0.83-4.51); Absolute Neutrophil Count 3.8 X10^3/uL (2.0-7.7); Basophil# 0.03 X10^3/uL; Basophil% 0.5 % (0-1); Eosinophil# 0.13 X10^3/uL; Hemoglobin 8.6 g/dl (12.0-15.0); Lymphocyte # 1.58 X10^3/ul (4.0); Lymphocyte % 24.5 % (19-41); Mean Corp Hgb Conc 31.9 g/gl (32-36); Mean Corpuscular Hgb 30.2 pg (27.0-32.0); Mean Corpuscular Volume 94.7 fL (81-99); Mean Platelet Vol. 10.6 fl (6.2-12.0); Monocyte# 0.86 X10^3/uL; Monocyte% 13.3 % (0-10); Neutrophil # 3.83 X10^3/uL (2.7-7.7); Neutrophil % 59.4 % (47-70); Platelet Count 261 K/mm3 (150-450); RBC Distribution Width CV 15.7 % (11.6-14.6); RBC Distribution Width SD 51.2 fl (35.1-43.9); Red Blood Count 2.85 M/mm3 (4.2-5.4); White Blood Count 6.5 K/mm3 (4.4-11.0)
[2018-05-27] MEDS: Levothyroxine 50 MCG Tablet PO (06:18)
[2018-05-27] MEDS: 0.9% Normal Saline 1,000 ML 100 ML IV ×2 (06:18→17:40)
[2018-05-27 06:33] LABS: POSITIVE COUNT NO; POSITIVE DIFFERENTIAL NO; POSITIVE MORPHOLOGY NO
[2018-05-27 06:40] LABS: Anion Gap 8 (5-15); BUN 14 mg/dL (7-18); BUN/Creat Ratio 17.1 RATIO (10-20); Calcium,Total 7.6 mg/dL (8.5-10.1); Chloride 111 mmol/L (98-107); Creatinine, Serum 0.82 mg/dL (0.55-1.02); EST Glomerular Filtration Rate 71 mL/min (>60); Est Glom Filt Rate - Afr Amer 86 mL/min (>60); Glucose 124 mg/dL (74-106); Potassium 3.4 mmol/L (3.5-5.1); Sodium Level 142 mmol/L (136-145)
[2018-05-27 06:51] LABS: Bedside Glucose 130 mg/dL (70-110)
[2018-05-27] MEDS: APIXABAN 2.5 MG TABLET PO ×2 (08:33→21:08)
[2018-05-27] MEDS: Carvedilol 3.125 MG TABLET PO ×2 (08:33→21:08)
[2018-05-27] MEDS: Amiodarone 200 MG Tablet PO (08:33)
[2018-05-27] MEDS: Aspirin 81 MG TAB.CHEW PO (08:33)
[2018-05-27] MEDS: Clopidogrel Bisulfate 75 MG Tablet PO (08:34)
[2018-05-27] MEDS: amLODIPine 5 MG Tablet PO (08:34)
--- NOTE | 2018-05-27 09:38 | PCM.PN.HOSP ---
Subjective: Seems to doing much better than when she came in, she is alert and oriented. Vitals/I&O's: Vital Signs Temp Pulse Resp BP Pulse Ox 97.9 F 73 16 123/56 H 94 05/27/18 08:31 05/27/18 08:31 05/27/18 08:31 05/27/18 08:31 05/27/18 08:31 Oxygen Flow Rate (L/min) 2 Oxygen Delivery Method Room Air Weight: 119 lb 0.794 oz Body Mass Index (BMI) 21.9 Finger Stick Blood Glucose 449 Intake and Output for Last 24 Hours 05/25/18 05/26/18 05/27/18 23:59 23:59 23:59 Intake Total 1107 / 1107 648 / 648 Output Total 200 / 200 Balance 907 / 907 648 / 648 General: Alert, Oriented x3, Cooperative, No apparent distress HEENT: Atraumatic, PERRLA, EOMI, Normocephalic Oral: Moist Mucosa Neck: Supple, No JVD, Trachea Midline Lungs: Clear to auscultation, Normal air movement, No rhonchi, No wheeze, No rales Cardiovascular: Regular rate, Regular Rhythm, Normal S1, Normal S2, Murmur - 2/6 JENNIFER Abdomen: Soft, Non Tender, Non-Distended, No Hepato-splenomegaly Extremities: No edema, Capillary Refill Less than 3 Seconds Skin: No rashes, No breakdown, incision from cath is clean Neurological: Neuro grossly intact, Sensory exam intact to light touch and pain, B/l LE 4/5 Psych/Mental Status: Normal Affect, Appropriate Laboratory Results 05/26/18 09:00: Urine RBC 0 SEEN, Urine WBC 0 SEEN, Ur Squamous Epith Cells 0-5 SEEN, Urine Bacteria 0 SEEN, Urine Mucus 0 SEEN 05/26/18 09:30: WBC 4.5, RBC 3.61 L, Hgb 10.9 L, Hct 33.3 L, MCV 92.2, MCH 30.2, MCHC 32.7, RDW 15.1 H, RDW Differential 48.8 H, Plt Count 279, MPV 10.4, Immature Gran % (Auto) 0.400, Neut % (Auto) 76.7 H, Lymph % (Auto) 14.5 L, Childress % (Auto) 7.5, Eos % (Auto) 0.7, Baso % (Auto) 0.2, Absolute Neuts (auto) 3.5, Absolute Lymphs (auto) 0.66 L, Total Counted Not Reportable 05/26/18 09:30: PT 13.7, INR 1.1, APTT 29.5 05/26/18 09:30: Sodium 139, Potassium 3.7, Chloride 102, Carbon Dioxide 28.0, Anion Gap 9, BUN 16, Creatinine 0.78, Estim Creat Clear Calc 34.90, Est GFR (MDRD) Af Amer 91, Est GFR (MDRD) Non-Af 75, BUN/Creatinine Ratio 20.4 H, Glucose 153 H, Calcium 8.5, Magnesium 2.0, Total Bilirubin 0.40, AST 29, ALT 28, Alkaline Phosphatase 127 H, Total Protein 6.9, Albumin 3.1 L, Globulin 3.8, Albumin/Globulin Ratio 0.8 L, TSH 4.11 H 05/26/18 09:30: Acetone Level NEGATIVE 05/26/18 09:30: Lactic Acid 1.3 05/26/18 09:30: Troponin I 0.885 H*, Free T4 1.59 H 05/26/18 15:12: POC Glucose 225 H 05/26/18 15:20: WBC 5.5, RBC 2.91 L, Hgb 8.8 L, Hct 27.1 L, MCV 93.1, MCH 30.2, MCHC 32.5, RDW 15.6 H, RDW Differential 53.1 H, Plt Count 232, MPV 10.3, Immature Gran % (Auto) 0.400, Neut % (Auto) 73.6 H, Lymph % (Auto) 16.8 L, Childress % (Auto) 9.0, Eos % (Auto) 0.2, Baso % (Auto) 0.0, Absolute Neuts (auto) 4.0, Absolute Lymphs (auto) 0.92, Total Counted Not Reportable 05/26/18 21:55: POC Glucose 373 H 05/27/18 05:45: WBC 6.5, RBC 2.85 L, Hgb 8.6 L, Hct 27.0 L, MCV 94.7, MCH 30.2, MCHC 31.9 L, RDW 15.7 H, RDW Differential 51.2 H, Plt Count 261, MPV 10.6, Immature Gran % (Auto) 0.300, Neut % (Auto) 59.4, Lymph % (Auto) 24.5, Childress % (Auto) 13.3 H, Eos % (Auto) 2.0, Baso % (Auto) 0.5, Absolute Neuts (auto) 3.8, Absolute Lymphs (auto) 1.58, Total Counted Not Reportable 05/27/18 05:45: Sodium 142, Potassium 3.4 L, Chloride 111 H, Carbon Dioxide 23.0, Anion Gap 8, BUN 14, Creatinine 0.82, Estim Creat Clear Calc 40.60, Est GFR (MDRD) Af Amer 86, Est GFR (MDRD) Non-Af 71, BUN/Creatinine Ratio 17.1, Glucose 124 H, Calcium 7.6 L 05/27/18 06:47: POC Glucose 130 H Current [facility] Admin: 05/27/18 08:33 Dose: 200 mg Amlodipine Besylate (Norvasc) 5 mg PO DAILY [facility] Last Admin: 05/27/18 08:34 Dose: 5 mg Apixaban (Eliquis) 2.5 mg PO BID [facility] Last Admin: 05/27/18 08:33 Dose: 2.5 mg Aspirin (Aspirin, Baby) 81 mg PO DAILY@0800 [facility] Last Admin: 05/27/18 08:33 Dose: 81 mg Atorvastatin Calcium (Lipitor) 40 mg PO QHS [facility] Last Admin: 05/26/18 21:58 Dose: 40 mg Carvedilol (Coreg) 3.125 mg PO BID [facility] Last Admin: 05/27/18 08:33 Dose: 3.125 mg Clopidogrel Bisulfate (Plavix) 75 mg PO DAILY [facility] Last Admin: 05/27/18 08:34 Dose: 75 mg Dextrose (D50w Syringe) 0 gm IV X1 PRN; Protocol PRN Reason: Hypoglycemia Glucagon () 1 mg IM .X1 PRN PRN Reason: Hypoglycemia Sodium Chloride () 1,000 mls @ 100 mls/hr IV .Q10H [facility] Last Admin: 05/27/18 06:18 Dose: 100 mls/hr Insulin Glargine (Lantus (Bkc)) 25 units SC DAILY PRN PRN PRN Reason: glucose Insulin Human Lispro (Humalog Kwikpen (Bkc)) 0 unit SQ ACHS [facility]; Protocol Last Admin: 05/27/18 06:56 Dose: Not Given Levothyroxine Sodium (Synthroid) 50 mcg PO MoTuWeThFr@0600 [facility] Last Admin: 05/27/18 06:18 Dose: 50 mcg Levothyroxine Sodium (Synthroid) 75 mcg PO SuSa@0600 [facility] Magnesium Hydroxide (Milk Of Magnesia) 30 ml PO DAILY PRN PRN Reason: Constipation Nutritional Formula (Lactose Free) (Glucerna Shake) 120 ml PO 4X/DAY [facility] Last Admin: 05/27/18 08:34 Dose: Not Given Medical Necessity - Tobacco Use Smoking Status: Former smoker Assessment/Plan All Active Problems (Last Updated 05/20/18 @ 22:39 by Rah Faulkner MD) Stented coronary artery (Acute 05/23/18) Arteriosclerotic heart disease (ASHD) (Acute 05/23/18) 1. Hypothermia/diarrhea -Unsure as to the precise etiology of either -She had a stool workup recently which was negative, will not repeat -Start with antidiarrheal medication -She is now at a normal body temperature after bear hugger and warm saline infusion -We will monitor and continue with IV fluids, for dehydration given lack of PO and diarrhea -PT/OT for evaluation and possible placement in a [facility] facility 2. NSTEMI/A. fib/HTN/chronic diastolic heart failure/HLD/CAD -Troponin on admission previously was 0.029 and increased ultimately to 4.18, and is now 0.885 -Cardiac catheter performed earlier in the week with 2 stents placed to the mid LAD -Continue with aspirin and Plavix -Continue with amiodarone, Norvasc, Coreg, and Lipitor -Continue with Eliquis will hold Lasix 3. DM 1 -Continue with her home insulin regimen -SSI and Accu-Cheks 4. Hypothyroidism -Stable -Continue with Synthroid DVT: Eliquis Code Visit Inpatient E&M: 58157 Subs Hosp L2
--- NOTE | 2018-05-27 10:49 | CASEMGMT ---
Kiera at [facility] aware that pt/family are interested in SNF placement at this time and that pt will at least be here until precert obtained. Advised her to keep pt on [facility] list and that we will notify them once aware, voices understanding. Bri SEAY working on SNF placement. Maldonado HARRELL CM
[2018-05-27 11:56] LABS: Bedside Glucose 393 mg/dL (70-110)
[2018-05-27] MEDS: Insulin Lispro 100 UNIT/ML INSULN.PEN SQ ×3 (12:13→23:11)
--- NOTE | 2018-05-27 15:12 | CASEMGMT ---
Patient's daughter gave SW a list of their choice of nursing homes. [facility] choice and left a message for Sandra in admissions. DAWOOD had not received a return call so DAWOOD obtained a fax number for admissions from the guest relations receptionist. DAWOOD faxed the referral for patient. Plan: SNF pending insurance approval and accepting facility. Loida MCCARTHY
--- NOTE | 2018-05-27 15:18 | CASEMGMT ---
DAWOOD let patient know DAWOOD faxed a referral to [facility], their first choice. DAWOOD let her know DAWOOD has not heard anything yet. DAWOOD will follow up with them on Wednesday. She thanked DAWOOD for the update. Loida MCCARTHY
[2018-05-27 16:50] LABS: Bedside Glucose 261 mg/dL (70-110)
[2018-05-27] MEDS: Atorvastatin Calcium 40 MG Tablet PO (21:08)
[2018-05-27 23:31] LABS: Bedside Glucose 372 mg/dL (70-110)
[2018-05-28] VITALS (10 sets, daily range): BP systolic 120–147; BP diastolic 43–69; PULSE 63–76; RESP 15–18; TEMP 36.2–36.9; O2SAT 95–99
[2018-05-28] MEDS: Levothyroxine 50 MCG Tablet PO (06:52)
[2018-05-28] MEDS: 0.9% Normal Saline 1,000 ML 100 ML IV ×2 (06:52→18:30)
[2018-05-28] MEDS: Levothyroxine 75 MCG Tablet PO (06:56)
[2018-05-28 07:05] LABS: Bedside Glucose 374 mg/dL (70-110)
[2018-05-28 07:52] LABS: Anion Gap 11 (5-15); BUN 15 mg/dL (7-18); BUN/Creat Ratio 15.1 RATIO (10-20); Calcium,Total 8.2 mg/dL (8.5-10.1); Chloride 109 mmol/L (98-107); Creatinine, Serum 0.99 mg/dL (0.55-1.02); EST Glomerular Filtration Rate 57 mL/min (>60); Est Glom Filt Rate - Afr Amer 69 mL/min (>60); Estimated Creatinine Clearance 33.63 ml/min; Glucose 425 mg/dL (74-106); Sodium Level 141 mmol/L (136-145)
[2018-05-28] MEDS: Insulin Lispro 100 UNIT/ML INSULN.PEN SQ ×3 (08:41→15:56)
[2018-05-28] MEDS: Aspirin 81 MG TAB.CHEW PO (08:41)
[2018-05-28] MEDS: Amiodarone 200 MG Tablet PO (08:41)
[2018-05-28] MEDS: Clopidogrel Bisulfate 75 MG Tablet PO (08:42)
[2018-05-28] MEDS: APIXABAN 2.5 MG TABLET PO ×2 (08:42→21:27)
[2018-05-28] MEDS: Carvedilol 3.125 MG TABLET PO ×2 (08:42→21:26)
[2018-05-28] MEDS: amLODIPine 5 MG Tablet PO (08:42)
--- NOTE | 2018-05-28 09:16 | PCM.PN.HOSP ---
Subjective: Feels fine though still little bit weak in her lower extremities. PT is recommending therapy 1-2 hours, 5 days a week Vitals/I&O's: Vital Signs Temp Pulse Resp BP Pulse Ox 98.2 F 73 15 120/43 L 98 05/28/18 03:27 05/28/18 07:21 05/28/18 03:27 05/28/18 03:27 05/27/18 22:00 Oxygen Flow Rate (L/min) 2 Oxygen Delivery Method Room Air Weight: 119 lb 0.794 oz Body Mass Index (BMI) 21.9 Finger Stick Blood Glucose 449 Intake and Output for Last 24 Hours 05/26/18 05/27/18 05/28/18 23:59 23:59 23:59 Intake Total 1107 / 1107 2975 / 2975 650 / 650 Output Total 200 / 200 Balance 907 / 907 2975 / 2975 650 / 650 General: Alert, Oriented x3, Cooperative, No apparent distress HEENT: Atraumatic, PERRLA, EOMI, Normocephalic Oral: Moist Mucosa Neck: Supple, No JVD, Trachea Midline Lungs: Clear to auscultation, Normal air movement, No rhonchi, No wheeze, No rales Cardiovascular: Regular rate, Regular Rhythm, Normal S1, Normal S2, Murmur - 2/6 JENNIFER Abdomen: Soft, Non Tender, Non-Distended, No Hepato-splenomegaly Extremities: No edema, Capillary Refill Less than 3 Seconds Skin: No rashes, No breakdown, incision from cath is clean Neurological: Neuro grossly intact, Sensory exam intact to light touch and pain, B/l LE 4/5 Psych/Mental Status: Normal Affect, Appropriate Microbiology Past 72 Hours 05/26/18 09:00 Urine Catheter - Catheter Urine Culture - Final Culture exhibits no growth. Laboratory Results 05/27/18 11:44: POC Glucose 393 H 05/27/18 16:15: POC Glucose 261 H 05/27/18 23:07: POC Glucose 372 H 05/28/18 06:54: POC Glucose 374 H 05/28/18 06:56: Sodium 141, Potassium 4.0, Chloride 109 H, Carbon Dioxide 21.0, Anion Gap 11, BUN 15, Creatinine 0.99, Estim Creat Clear Calc 33.63, Est GFR (MDRD) Af Amer 69, Est GFR (MDRD) Non-Af 57 L, BUN/Creatinine Ratio 15.1, Glucose 425 H, Calcium 8.2 L Current Medications [facility] Admin: 05/28/18 08:41 Dose: 200 mg Amlodipine Besylate (Norvasc) 5 mg PO DAILY [facility] Last Admin: 05/28/18 08:42 Dose: 5 mg Apixaban (Eliquis) 2.5 mg PO BID [facility] Last Admin: 05/28/18 08:42 Dose: 2.5 mg Aspirin (Aspirin, Baby) 81 mg PO DAILY@0800 [facility] Last Admin: 05/28/18 08:41 Dose: 81 mg Atorvastatin Calcium (Lipitor) 40 mg PO QHS [facility] Last Admin: 05/27/18 21:08 Dose: 40 mg Carvedilol (Coreg) 3.125 mg PO BID [facility] Last Admin: 05/28/18 08:42 Dose: 3.1249 mg Clopidogrel Bisulfate (Plavix) 75 mg PO DAILY [facility] Last Admin: 05/28/18 08:42 Dose: 75 mg Dextrose (D50w Syringe) 0 gm IV X1 PRN; Protocol PRN Reason: Hypoglycemia Glucagon () 1 mg IM .X1 PRN PRN Reason: Hypoglycemia Sodium Chloride () 1,000 mls @ 100 mls/hr IV .Q10H [facility] Last Admin: 05/28/18 06:52 Dose: 100 mls/hr Insulin Glargine (Lantus (Bkc)) 25 units SC DAILY PRN PRN PRN Reason: glucose Last Admin: 05/28/18 08:43 Dose: 25 units Insulin Human Lispro (Humalog Kwikpen (Bkc)) 0 unit SQ ACHS [facility]; Protocol Last Admin: 05/28/18 08:41 Dose: 8 units Levothyroxine Sodium (Synthroid) 50 mcg PO MoTuWeThFr@0600 [facility] Last Admin: 05/28/18 06:52 Dose: 50 mcg Levothyroxine Sodium (Synthroid) 75 mcg PO SuSa@0600 [facility] Last Admin: 05/28/18 06:56 Dose: 75 mcg Loperamide HCl (Imodium) 2 mg PO Q4H PRN PRN PRN Reason: Diarrhea Magnesium Hydroxide (Milk Of Magnesia) 30 ml PO DAILY PRN PRN Reason: Constipation Medical Necessity - Tobacco Use Smoking Status: Former smoker Assessment/Plan All Active Problems (Last Updated 05/20/18 @ 22:39 by Rah Faulkner MD) Stented coronary artery (Acute 05/23/18) Arteriosclerotic heart disease (ASHD) (Acute 05/23/18) 1. Hypothermia/diarrhea -Unsure as to the precise etiology of either -She had a stool workup recently which was negative, will not repeat -Start with antidiarrheal medication -She is now at a normal body temperature after bear hugger and warm saline infusion -We will monitor and continue with IV fluids, for dehydration given lack of PO and diarrhea -PT/OT for evaluation and possible placement in a [facility] facility [place] to be close to her daughter 2. NSTEMI/A. fib/HTN/chronic diastolic heart failure/HLD/CAD -Troponin on admission previously was 0.029 and increased ultimately to 4.18, and is now 0.885 -Cardiac catheter performed earlier in the week with 2 stents placed to the mid LAD -Continue with aspirin and Plavix -Continue with amiodarone, Norvasc, Coreg, and Lipitor -Continue with Eliquis will hold Lasix 3. DM 1 -Continue with her home insulin regimen -SSI and Accu-Cheks 4. Hypothyroidism -Stable -Continue with Synthroid DVT: Eliquis Code Visit Inpatient E&M: 45509 Subs Hosp L2
--- NOTE | 2018-05-28 09:21 | PN_ITS ---
Subjective: Feels fine though still little bit weak in her lower extremities. PT is recommending therapy 1-2 hours, 5 days a week Vitals/I&O's: Vital Signs Temp Pulse Resp BP Pulse Ox 98.2 F 73 15 120/43 L 98 05/28/18 03:27 05/28/18 07:21 05/28/18 03:27 05/28/18 03:27 05/27/18 22:00 Oxygen Flow Rate (L/min) 2 Oxygen Delivery Method Room Air Weight: 119 lb 0.794 oz Body Mass Index (BMI) 21.9 Finger Stick Blood Glucose 449 Intake and Output for Last 24 Hours 05/26/18 05/27/18 05/28/18 23:59 23:59 23:59 Intake Total 1107 / 1107 2975 / 2975 650 / 650 Output Total 200 / 200 Balance 907 / 907 2975 / 2975 650 / 650 General: Alert, Oriented x3, Cooperative, No apparent distress HEENT: Atraumatic, PERRLA, EOMI, Normocephalic Oral: Moist Mucosa Neck: Supple, No JVD, Trachea Midline Lungs: Clear to auscultation, Normal air movement, No rhonchi, No wheeze, No rales Cardiovascular: Regular rate, Regular Rhythm, Normal S1, Normal S2, Murmur - 2/6 JENNIFER Abdomen: Soft, Non Tender, Non-Distended, No Hepato-splenomegaly Extremities: No edema, Capillary Refill Less than 3 Seconds Skin: No rashes, No breakdown, incision from cath is clean Neurological: Neuro grossly intact, Sensory exam intact to light touch and pain, B/l LE 4/5 Psych/Mental Status: Normal Affect, Appropriate Microbiology Past 72 Hours 05/26/18 09:00 Urine Catheter - Catheter Urine Culture - Final Culture exhibits no growth. Laboratory Results 05/27/18 11:44: POC Glucose 393 H 05/27/18 16:15: POC Glucose 261 H 05/27/18 23:07: POC Glucose 372 H 05/28/18 06:54: POC Glucose 374 H 05/28/18 06:56: Sodium 141, Potassium 4.0, Chloride 109 H, Carbon Dioxide 21.0, Anion Gap 11, BUN 15, Creatinine 0.99, Estim Creat Clear Calc 33.63, Est GFR (MDRD) Af Amer 69, Est GFR (MDRD) Non-Af 57 L, BUN/Creatinine Ratio 15.1, Glucose 425 H, Calcium 8.2 L Current Medications [facility] Last Admin: 05/28/18 08:41 Dose: 200 mg Amlodipine Besylate (Norvasc) 5 mg PO DAILY [facility] Last Admin: 05/28/18 08:42 Dose: 5 mg Apixaban (Eliquis) 2.5 mg PO BID [facility] Last Admin: 05/28/18 08:42 Dose: 2.5 mg Aspirin (Aspirin, Baby) 81 mg PO DAILY@0800 [facility] Last Admin: 05/28/18 08:41 Dose: 81 mg Atorvastatin Calcium (Lipitor) 40 mg PO QHS [facility] Last Admin: 05/27/18 21:08 Dose: 40 mg Carvedilol (Coreg) 3.125 mg PO BID [facility] Last Admin: 05/28/18 08:42 Dose: 3.1249 mg Clopidogrel Bisulfate (Plavix) 75 mg PO DAILY [facility] Last Admin: 05/28/18 08:42 Dose: 75 mg Dextrose (D50w Syringe) 0 gm IV X1 PRN; Protocol PRN Reason: Hypoglycemia Glucagon () 1 mg IM .X1 PRN PRN Reason: Hypoglycemia Sodium Chloride () 1,000 mls @ 100 mls/hr IV .Q10H [facility] Last Admin: 05/28/18 06:52 Dose: 100 mls/hr Insulin Glargine (Lantus (Bkc)) 25 units SC DAILY PRN PRN PRN Reason: glucose Last Admin: 05/28/18 08:43 Dose: 25 units Insulin Human Lispro (Humalog Kwikpen (Bkc)) 0 unit SQ ACHS [facility]; Protocol Last Admin: 05/28/18 08:41 Dose: 8 units Levothyroxine Sodium (Synthroid) 50 mcg PO MoTuWeThFr@0600 [facility] Last Admin: 05/28/18 06:52 Dose: 50 mcg Levothyroxine Sodium (Synthroid) 75 mcg PO SuSa@0600 [facility] Last Admin: 05/28/18 06:56 Dose: 75 mcg Loperamide HCl (Imodium) 2 mg PO Q4H PRN PRN PRN Reason: Diarrhea Magnesium Hydroxide (Milk Of Magnesia) 30 ml PO DAILY PRN PRN Reason: Constipation Medical Necessity - Tobacco Use Smoking Status: Former smoker Assessment/Plan All Active Problems (Last Updated 05/20/18 @ 22:39 by Rah Faulkner MD) Stented coronary artery (Acute 05/23/18) Arteriosclerotic heart disease (ASHD) (Acute 05/23/18) 1. Hypothermia/diarrhea -Unsure as to the precise etiology of either -She had a stool workup recently which was negative, will not repeat -Start with antidiarrheal medication -She is now at a normal body temperature after bear hugger and warm saline infusion -We will monitor and continue with IV fluids, for dehydration given lack of PO and diarrhea -PT/OT for evaluation and possible placement in a long term facility [place] to be close to her daughter 2. NSTEMI/A. fib/HTN/chronic diastolic heart failure/HLD/CAD -Troponin on admission previously was 0.029 and increased ultimately to 4.18, and is now 0.885 -Cardiac catheter performed earlier in the week with 2 stents placed to the mid LAD -Continue with aspirin and Plavix -Continue with amiodarone, Norvasc, Coreg, and Lipitor -Continue with Eliquis will hold Lasix 3. DM 1 -Continue with her home insulin regimen -SSI and Accu-Cheks 4. Hypothyroidism -Stable -Continue with Synthroid DVT: Eliquis Code Visit Inpatient E&M: 18570 Subs Hosp L2
[2018-05-28 12:55] LABS: Bedside Glucose 296 mg/dL (70-110)
[2018-05-28 16:01] LABS: Bedside Glucose 248 mg/dL (70-110)
[2018-05-28] MEDS: Atorvastatin Calcium 40 MG Tablet PO (21:26)
[2018-05-28] MEDS: Dextrose 50%-Water 25 GM/50 ML DISP.SYRIN IV (22:45)
[2018-05-28 23:10] LABS: Bedside Glucose 54 mg/dL (70-110)
[2018-05-28 23:10] LABS: Bedside Glucose 149 mg/dL (70-110)
[2018-05-29] VITALS (10 sets, daily range): BP systolic 104–137; BP diastolic 50–64; PULSE 62–71; RESP 16–18; TEMP 36.3–37.3; O2SAT 94–95
[2018-05-29 03:16] LABS: Bedside Glucose 136 mg/dL (70-110)
[2018-05-29] MEDS: Levothyroxine 75 MCG Tablet PO (06:52)
[2018-05-29 06:56] LABS: Bedside Glucose 108 mg/dL (70-110)
[2018-05-29] MEDS: Aspirin 81 MG TAB.CHEW PO (09:04)
[2018-05-29] MEDS: Amiodarone 200 MG Tablet PO (09:04)
[2018-05-29] MEDS: Clopidogrel Bisulfate 75 MG Tablet PO (09:05)
[2018-05-29] MEDS: Carvedilol 3.125 MG TABLET PO ×2 (09:05→22:09)
[2018-05-29] MEDS: APIXABAN 2.5 MG TABLET PO ×2 (09:05→22:09)
[2018-05-29] MEDS: amLODIPine 5 MG Tablet PO (09:05)
[2018-05-29 11:25] LABS: Bedside Glucose 270 mg/dL (70-110)
[2018-05-29 14:26] LABS: Bedside Glucose 379 mg/dL (70-110)
[2018-05-29] MEDS: Insulin NPH Human 100 UNITS/ML PEN 10 UNITS SC (14:27)
[2018-05-29] MEDS: Insulin Lispro 100 UNIT/ML INSULN.PEN SQ (14:30)
--- NOTE | 2018-05-29 16:56 | PCM.PN.HOSP ---
Subjective: Doing well today, she is working with PT. She states that her diarrhea has significantly decreased. Vitals/I&O's: Vital Signs Temp Pulse Resp BP Pulse Ox 98.6 F 64 18 122/55 H 95 05/29/18 14:00 05/29/18 15:00 05/29/18 14:00 05/29/18 14:00 05/29/18 14:00 Oxygen Flow Rate (L/min) 2 Oxygen Delivery Method Room Air Weight: 119 lb 0.794 oz Body Mass Index (BMI) 21.9 Finger Stick Blood Glucose 449 Intake and Output for Last 24 Hours 05/27/18 05/28/18 05/30/18 23:59 23:59 00:59 Intake Total 2975 / 2975 1176 / 1176 1927 Balance 2975 / 2975 1176 / 1176 1927 General: Alert, Oriented x3, Cooperative, No apparent distress HEENT: Atraumatic, PERRLA, EOMI, Normocephalic Oral: Moist Mucosa Neck: Supple, No JVD, Trachea Midline Lungs: Clear to auscultation, Normal air movement, No rhonchi, No wheeze, No rales Cardiovascular: Regular rate, Regular Rhythm, Normal S1, Normal S2, Murmur - 2/6 JENNIFER Abdomen: Soft, Non Tender, Non-Distended, No Hepato-splenomegaly Extremities: Trace edema, Capillary Refill Less than 3 Seconds Skin: No rashes, No breakdown, incision from cath is clean Neurological: Neuro grossly intact, Sensory exam intact to light touch and pain, B/l LE 4/5 Psych/Mental Status: Normal Affect, Appropriate Microbiology Past 72 Hours 05/26/18 09:35 Blood Culture (Wb) - Left Forearm Blood Culture - Preliminary No growth in 48 hours. 05/26/18 09:30 Blood Culture (Wb) - Right Forearm Blood Culture - Preliminary No growth in 48 hours. 05/26/18 09:00 Urine Catheter - Catheter Urine Culture - Final Culture exhibits no growth. Laboratory Results 05/28/18 15:54: POC Glucose 248 H 05/28/18 21:28: POC Glucose 54 L 05/28/18 23:04: POC Glucose 149 H 05/29/18 03:10: POC Glucose 136 H 05/29/18 06:49: POC Glucose 108 05/29/18 11:13: POC Glucose 270 H 05/29/18 14:22: POC Glucose 379 H [facility] Admin: 05/29/18 09:04 Dose: 200 mg Amlodipine Besylate (Norvasc) 5 mg PO DAILY [facility] Last Admin: 05/29/18 09:05 Dose: 5 mg Apixaban (Eliquis) 2.5 mg PO BID [facility] Last Admin: 05/29/18 09:05 Dose: 2.5 mg Aspirin (Aspirin, Baby) 81 mg PO DAILY@0800 [facility] Last Admin: 05/29/18 09:04 Dose: 81 mg Atorvastatin Calcium (Lipitor) 40 mg PO QHS [facility] Last Admin: 05/28/18 21:26 Dose: 40 mg Carvedilol (Coreg) 3.125 mg PO BID [facility] Last Admin: 05/29/18 09:05 Dose: 3.1249 mg Clopidogrel Bisulfate (Plavix) 75 mg PO DAILY [facility] Last Admin: 05/29/18 09:05 Dose: 75 mg Dextrose (D50w Syringe) 0 gm IV X1 PRN; Protocol PRN Reason: Hypoglycemia Glucagon () 1 mg IM .X1 PRN PRN Reason: Hypoglycemia Insulin Human Lispro (Humalog Kwikpen (Bkc)) 0 unit SQ [facility]; Protocol Last Admin: 05/29/18 14:30 Dose: 10 units Insulin Human NPH ([facility]ulin N ([facility])) [facility] Levothyroxine Sodium (Synthroid) 50 mcg PO MoTuWeThFr@0600 [facility] Last Admin: 05/28/18 06:52 Dose: 50 mcg Levothyroxine Sodium (Synthroid) 75 mcg PO SuSa@0600 [facility] Last Admin: 05/29/18 06:52 Dose: 75 mcg Loperamide HCl (Imodium) 2 mg PO Q4H PRN PRN PRN Reason: Diarrhea Magnesium Hydroxide (Milk Of Magnesia) 30 ml PO DAILY PRN PRN Reason: Constipation Medical Necessity - Tobacco Use Smoking Status: Former smoker Assessment/Plan All Active Problems (Last Updated 05/20/18 @ 22:39 by Rah Faulkner MD) Stented coronary artery (Acute 05/23/18) Arteriosclerotic heart disease (ASHD) (Acute 05/23/18) 1. Hypothermia/diarrhea -Unsure as to the precise etiology of either -She had a stool workup recently which was negative, will not repeat -Start with antidiarrheal medication, she states that she did not have any diarrhea today -She is now at a normal body temperature after bear hugger and warm saline infusion -We will monitor and continue with IV fluids, for dehydration given lack of PO and diarrhea. Since she says that her diarrhea has improved can monitor and if she does not have any further diarrhea can consider stopping IV fluids and restarting her Lasix -PT/OT for evaluation and possible [facility] to her daughter 2. NSTEMI/A. fib/HTN/chronic diastolic heart failure/HLD/CAD -Troponin on admission previously was 0.029 and increased ultimately to 4.18, and is now 0.885 -Cardiac catheter performed earlier in the week with 2 stents placed to the mid LAD -Continue with aspirin and Plavix -Continue with amiodarone, Norvasc, Coreg, and Lipitor -Continue with Eliquis will hold Lasix for another day, since she states that her diarrhea has improved. 3. DM 1 -She is on Lantus 25 units at night, however her p.o. intake is highly variable therefore will transition to 10 units of 70/30 twice daily, and adjust with sliding scale insulin -SSI and Accu-Cheks 4. Hypothyroidism -Stable -Continue with Synthroid DVT: Eliquis Code Visit Inpatient E&M: 81782 Subs Hosp L2
--- NOTE | 2018-05-29 17:00 | PN_ITS ---
Subjective: Doing well today, she is working with PT. She states that her diarrhea has significantly decreased. Vitals/I&O's: Vital Signs Temp Pulse Resp BP Pulse Ox 98.6 F 64 18 122/55 H 95 05/29/18 14:00 05/29/18 15:00 05/29/18 14:00 05/29/18 14:00 05/29/18 14:00 Oxygen Flow Rate (L/min) 2 Oxygen Delivery Method Room Air Weight: 119 lb 0.794 oz Body Mass Index (BMI) 21.9 Finger Stick Blood Glucose 449 Intake and Output for Last 24 Hours 05/27/18 05/28/18 05/30/18 23:59 23:59 00:59 Intake Total 2975 / 2975 1176 / 1176 1927 Balance 2975 / 2975 1176 / 1176 1927 General: Alert, Oriented x3, Cooperative, No apparent distress HEENT: Atraumatic, PERRLA, EOMI, Normocephalic Oral: Moist Mucosa Neck: Supple, No JVD, Trachea Midline Lungs: Clear to auscultation, Normal air movement, No rhonchi, No wheeze, No rales Cardiovascular: Regular rate, Regular Rhythm, Normal S1, Normal S2, Murmur - 2/6 JENNIFER Abdomen: Soft, Non Tender, Non-Distended, No Hepato-splenomegaly Extremities: Trace edema, Capillary Refill Less than 3 Seconds Skin: No rashes, No breakdown, incision from cath is clean Neurological: Neuro grossly intact, Sensory exam intact to light touch and pain, B/l LE 4/5 Psych/Mental Status: Normal Affect, Appropriate Microbiology Past 72 Hours 05/26/18 09:35 Blood Culture (Wb) - Left Forearm Blood Culture - Preliminary No growth in 48 hours. 05/26/18 09:30 Blood Culture (Wb) - Right Forearm Blood Culture - Preliminary No growth in 48 hours. 05/26/18 09:00 Urine Catheter - Catheter Urine Culture - Final Culture exhibits no growth. Laboratory Results 05/28/18 15:54: POC Glucose 248 H 05/28/18 21:28: POC Glucose 54 L 05/28/18 23:04: POC Glucose 149 H 05/29/18 03:10: POC Glucose 136 H 05/29/18 06:49: POC Glucose 108 05/29/18 11:13: POC Glucose 270 H 05/29/18 14:22: POC Glucose 379 H Current Medications [facility] Last Admin: 05/29/18 09:04 Dose: 200 mg Amlodipine Besylate (Norvasc) 5 mg PO DAILY [facility] Last Admin: 05/29/18 09:05 Dose: 5 mg Apixaban (Eliquis) 2.5 mg PO BID [facility] Last Admin: 05/29/18 09:05 Dose: 2.5 mg Aspirin (Aspirin, Baby) 81 mg PO DAILY@0800 [facility] Last Admin: 05/29/18 09:04 Dose: 81 mg Atorvastatin Calcium (Lipitor) 40 mg PO QHS [facility] Last Admin: 05/28/18 21:26 Dose: 40 mg Carvedilol (Coreg) 3.125 mg PO BID [facility] Last Admin: 05/29/18 09:05 Dose: 3.1249 mg Clopidogrel Bisulfate (Plavix) 75 mg PO DAILY [facility] Last Admin: 05/29/18 09:05 Dose: 75 mg Dextrose (D50w Syringe) 0 gm IV X1 PRN; Protocol PRN Reason: Hypoglycemia Glucagon () 1 mg IM .X1 PRN PRN Reason: Hypoglycemia Insulin Human Lispro (Humalog Kwikpen (Bkc)) 0 unit SQ [facility]; Protocol Last Admin: 05/29/18 14:30 Dose: 10 units Insulin Human NPH (Humulin N (Bkc)) 10 units SC [facility] Levothyroxine Sodium (Synthroid) 50 mcg PO MoTuWeThFr@0600 [facility] Last Admin: 05/28/18 06:52 Dose: 50 mcg Levothyroxine Sodium (Synthroid) 75 mcg PO SuSa@0600 [facility] Last Admin: 05/29/18 06:52 Dose: 75 mcg Loperamide HCl (Imodium) 2 mg PO Q4H PRN PRN PRN Reason: Diarrhea Magnesium Hydroxide (Milk Of Magnesia) 30 ml PO DAILY PRN PRN Reason: Constipation Medical Necessity - Tobacco Use Smoking Status: Former smoker Assessment/Plan All Active Problems (Last Updated 05/20/18 @ 22:39 by Rah Faulkner MD) Stented coronary artery (Acute 05/23/18) Arteriosclerotic heart disease (ASHD) (Acute 05/23/18) 1. Hypothermia/diarrhea -Unsure as to the precise etiology of either -She had a stool workup recently which was negative, will not repeat -Start with antidiarrheal medication, she states that she did not have any diarrhea today -She is now at a normal body temperature after bear hugger and warm saline infusion -We will monitor and continue with IV fluids, for dehydration given lack of PO and diarrhea. Since she says that her diarrhea has improved can monitor and if she does not have any further diarrhea can consider stopping IV fluids and restarting her Lasix -PT/OT for evaluation and possible placement in a [facility] facility [facility] to be close to her daughter 2. NSTEMI/A. fib/HTN/chronic diastolic heart failure/HLD/CAD -Troponin on admission previously was 0.029 and increased ultimately to 4.18, and is now 0.885 -Cardiac catheter performed earlier in the week with 2 stents placed to the mid LAD -Continue with aspirin and Plavix -Continue with amiodarone, Norvasc, Coreg, and Lipitor -Continue with Eliquis will hold Lasix for another day, since she states that her diarrhea has improved. 3. DM 1 -She is on Lantus 25 units at night, however her p.o. intake is highly variable therefore will transition to 10 units of 70/30 twice daily, and adjust with sliding scale insulin -SSI and Accu-Cheks 4. Hypothyroidism -Stable -Continue with Synthroid DVT: Eliquis Code Visit Inpatient E&M: 85501 Subs Hosp L2
[2018-05-29 17:50] LABS: Bedside Glucose 140 mg/dL (70-110)
[2018-05-29 21:01] LABS: Bedside Glucose 144 mg/dL (70-110)
[2018-05-29] MEDS: Atorvastatin Calcium 40 MG Tablet PO (22:09)
[2018-05-30] VITALS (11 sets, daily range): BP systolic 102–142; BP diastolic 53–65; PULSE 61–93; RESP 12–18; TEMP 36.4–37.1; O2SAT 95–98
[2018-05-30] MEDS: Levothyroxine 50 MCG Tablet PO (06:52)
[2018-05-30 07:01] LABS: Bedside Glucose 94 mg/dL (70-110)
[2018-05-30 07:01] LABS: Absolute Neutrophil Count 2.7 X10^3/uL (2.0-7.7); Basophil# 0.01 X10^3/uL; Basophil% 0.2 % (0-1); Eosinophil# 0.17 X10^3/uL; Eosinophils% 3.2 % (0-5); Hematocrit 27.9 % (37-47); Lymphocyte % 31.5 % (19-41); Mean Corp Hgb Conc 32.3 g/gl (32-36); Mean Corpuscular Hgb 30.3 pg (27.0-32.0); Mean Corpuscular Volume 93.9 fL (81-99); Mean Platelet Vol. 9.8 fl (6.2-12.0); Monocyte% 14.8 % (0-10); Neutrophil # 2.69 X10^3/uL (2.7-7.7); Neutrophil % 49.9 % (47-70); Platelet Count 302 K/mm3 (150-450); RBC Distribution Width CV 16.4 % (11.6-14.6); RBC Distribution Width SD 56.2 fl (35.1-43.9); Red Blood Count 2.97 M/mm3 (4.2-5.4); White Blood Count 5.4 K/mm3 (4.4-11.0)
[2018-05-30 07:11] LABS: POSITIVE COUNT NO; POSITIVE DIFFERENTIAL NO; POSITIVE MORPHOLOGY NO
[2018-05-30 07:28] LABS: Anion Gap 7 (5-15); BUN 12 mg/dL (7-18); BUN/Creat Ratio 16.5 RATIO (10-20); Calcium,Total 8.2 mg/dL (8.5-10.1); Chloride 109 mmol/L (98-107); Creatinine, Serum 0.73 mg/dL (0.55-1.02); EST Glomerular Filtration Rate 81 mL/min (>60); Est Glom Filt Rate - Afr Amer 98 mL/min (>60); Estimated Creatinine Clearance 33.29 ml/min; Glucose 76 mg/dL (74-106); Potassium 3.8 mmol/L (3.5-5.1); Sodium Level 141 mmol/L (136-145)
[2018-05-30] MEDS: Aspirin 81 MG TAB.CHEW PO (09:14)
[2018-05-30] MEDS: amLODIPine 5 MG Tablet PO (09:14)
[2018-05-30] MEDS: Amiodarone 200 MG Tablet PO (09:14)
[2018-05-30] MEDS: Carvedilol 3.125 MG TABLET PO ×2 (09:14→22:24)
[2018-05-30] MEDS: Clopidogrel Bisulfate 75 MG Tablet PO (09:14)
[2018-05-30] MEDS: APIXABAN 2.5 MG TABLET PO ×2 (09:14→22:24)
--- NOTE | 2018-05-30 09:47 | CASEMGMT ---
DAWOOD called [facility], patient and family's first choice for SNF. SW left a message for admissions again. DAWOOD also faxed updates. DAWOOD also called family's second choice since the first choice has not returned SW's calls. DAWOOD had to leave a voice mail for them as well. Plan: SNF pending pre-cert and accepting facility. Loida MCCARTHY
--- NOTE | 2018-05-30 10:16 | CASEMGMT ---
SW received a return call from [facility] the second choice. They have no bed availability. DAWOOD then called the 3rd choice[facility] and left a message for Janette in admissions. Still awaiting return call from 1st choice facility as well. Loida LE MSW
[2018-05-30] MEDS: Insulin Lispro 100 UNIT/ML INSULN.PEN SQ ×3 (11:59→22:24)
--- NOTE | 2018-05-30 12:14 | PN_ITS ---
Subjective: The patient is a 82 year old F with past medical history is again for recent acute non-STEMI for which patient underwent stent placement in her mid LAD 2 weeks prior to her current admission who presented with hypothermia and diarrhea Objective: GENERAL: cooperative HEENT: Atraumatic; moist oral mucosa EYES; Anicteric, Normal Conjunctiva NECK; supple, normal thyroid, no distended JVD. RESPIRATORY: Diminished to auscultation bilaterally, CARDIOVASCULAR: Regular S1 S2, no audible murmurs GI: soft, non-tender, normoactive bowel sounds, : No Renal angle tenderness; EXTREMITIES: No edema, no clubbing, no cyanosis. MUSCULOSKELETAL: No Joint Tenderness; no muscle waisting NEURO: Awake; no lateralizing signs. SKIN: No Rash PSYCH; Normal affect Vitals/I&O's: Vital Signs Temp Pulse Resp BP Pulse Ox 98.3 F 67 18 142/65 H 96 05/30/18 08:06 05/30/18 11:00 05/30/18 08:06 05/30/18 08:06 05/30/18 08:06 Oxygen Flow Rate (L/min) 2 Oxygen Delivery Method Room Air Weight: 54 kg Body Mass Index (BMI) 21.9 Finger Stick Blood Glucose 449 Intake and Output for Last 24 Hours 05/28/18 05/29/18 05/30/18 22:59 23:59 23:59 Intake Total 300 / 300 Balance 300 / 300 Microbiology Past 72 Hours 05/26/18 09:35 Blood Culture (Wb) - Left Forearm Blood Culture - Preliminary No growth in 48 hours. 05/26/18 09:30 Blood Culture (Wb) - Right Forearm Blood Culture - Preliminary No growth in 48 hours. 05/26/18 09:00 Urine Catheter - Catheter Urine Culture - Final Culture exhibits no growth. Laboratory Results 05/29/18 14:22: POC Glucose 379 H 05/29/18 17:45: POC Glucose 140 H 05/29/18 20:53: POC Glucose 144 H 05/30/18 06:05: WBC 5.4, RBC 2.97 L, Hgb 9.0 L, Hct 27.9 L, MCV 93.9, MCH 30.3, MCHC 32.3, RDW 16.4 H, RDW Differential 56.2 H, Plt Count 302, MPV 9.8, Immature Gran % (Auto) 0.400, Neut % (Auto) 49.9, Lymph % (Auto) 31.5, Hayes % (Auto) 14.8 H, Eos % (Auto) 3.2, Baso % (Auto) 0.2, Absolute Neuts (auto) 2.7, Absolute Lymphs (auto) 1.70, Total Counted Not Reportable 05/30/18 06:05: Sodium 141, Potassium 3.8, Chloride 109 H, Carbon Dioxide 25.0, Anion Gap 7, BUN 12, Creatinine 0.73, Estim Creat Clear Calc 33.29, Est GFR (MDRD) Af Amer 98, Est GFR (MDRD) Non-Af 81, BUN/Creatinine Ratio 16.5, Glucose 76, Calcium 8.2 L 05/30/18 06:45: POC Glucose 94 Current Medications [facility] Admin: 05/30/18 09:14 Dose: 200 mg Amlodipine Besylate (Norvasc) 5 mg PO DAILY [facility] Last Admin: 05/30/18 09:14 Dose: 5 mg Apixaban (Eliquis) 2.5 mg PO BID [facility] Last Admin: 05/30/18 09:14 Dose: 2.5 mg Aspirin (Aspirin, Baby) 81 mg PO DAILY@0800 [facility] Last Admin: 05/30/18 09:14 Dose: 81 mg Atorvastatin Calcium (Lipitor) 40 mg PO QHS [facility] Last Admin: 05/29/18 22:09 Dose: 40 mg Carvedilol (Coreg) 3.125 mg PO BID [facility] Last Admin: 05/30/18 09:14 Dose: 3.125 mg Clopidogrel Bisulfate (Plavix) 75 mg PO DAILY [facility] Last Admin: 05/30/18 09:14 Dose: 75 mg Dextrose (D50w Syringe) 0 gm IV X1 PRN; Protocol PRN Reason: Hypoglycemia Glucagon () 1 mg IM .X1 PRN PRN Reason: Hypoglycemia Insulin Human Lispro (Humalog Kwikpen (Bkc)) 0 unit SQ [facility]; Protocol Last Admin: 05/30/18 11:59 Dose: 11 units Insulin Human NPH ([facility]ulin N (Bkc)) [facility] Last Admin: 05/30/18 09:15 Dose: Not Given Levothyroxine Sodium (Synthroid) 50 mcg PO MoTuWeThFr@0600 [facility] Last Admin: 05/30/18 06:52 Dose: 50 mcg Levothyroxine Sodium (Synthroid) 75 mcg PO SuSa@0600 [facility] Last Admin: 05/29/18 06:52 Dose: 75 mcg Loperamide HCl (Imodium) 2 mg PO Q4H PRN PRN PRN Reason: Diarrhea Magnesium Hydroxide (Milk Of Magnesia) 30 ml PO DAILY PRN PRN Reason: Constipation Medical Necessity - Tobacco Use Smoking Status: Former smoker Assessment/Plan All Active Problems (Last Updated 05/20/18 @ 22:39 by Rah Faulkner MD) Stented coronary artery (Acute 05/23/18) Arteriosclerotic heart disease (ASHD) (Acute 05/23/18) The patient is a 82 year old F with past medical history is again for recent acute non-STEMI for which patient underwent stent placement in her mid LAD 2 weeks prior to her current admission who presented with hypothermia and diarrhea 1. Hypothermia workup was over remain negative to date resolved 2. CAD with recent on acute STEMI patient underwent stent placement to her LAD 3. Chronic diarrhea on antidiarrhea medications 4. Hypertension-blood pressure controlled, home medications continued with dose adjustment as needed 5. Chronic diastolic congestive heart failure resume patient diuretics 6. Hypothyroidism-patient is on levothyroxine home dose continued 7. Paroxysmal A. fib with RVR: on amiodarone in addition to systemic anticoagulant with Eliquis 8. Diabetes mellitus type 1 Lantus 25 units at night 9. Physical deconditioning requested for PT OT eval and social welfare research worker with plans for patient to be transferred to a senior care facility when bed is available and insurance precertification is obtained 10. DVT: Eliquis Active Medications [facility] Last Admin: 05/30/18 09:14 Dose: 200 mg Amlodipine Besylate (Norvasc) 5 mg PO DAILY [facility] Last Admin: 05/30/18 09:14 Dose: 5 mg Apixaban (Eliquis) 2.5 mg PO BID [facility] Last Admin: 05/30/18 09:14 Dose: 2.5 mg Aspirin (Aspirin, Baby) 81 mg PO DAILY@0800 [facility] Last Admin: 05/30/18 09:14 Dose: 81 mg Atorvastatin Calcium (Lipitor) 40 mg PO QHS [facility] Last Admin: 05/29/18 22:09 Dose: 40 mg Carvedilol (Coreg) 3.125 mg PO BID [facility] Last Admin: 05/30/18 09:14 Dose: 3.125 mg Clopidogrel Bisulfate (Plavix) 75 mg PO DAILY [facility] Last Admin: 05/30/18 09:14 Dose: 75 mg Dextrose (D50w Syringe) 0 gm IV X1 PRN; Protocol PRN Reason: Hypoglycemia Glucagon () 1 mg IM .X1 PRN PRN Reason: Hypoglycemia Insulin Human Lispro (Humalog Kwikpen (Bkc)) 0 unit SQ [facility]S [facility]; Protocol Last Admin: 05/30/18 11:59 Dose: 11 units Insulin Human NPH (Humulin N (Bkc)) 10 units SC BIDCM [facility] Last Admin: 05/30/18 09:15 Dose: Not Given Levothyroxine Sodium (Synthroid) 50 mcg PO MoTuWeThFr@0600 [facility] Last Admin: 05/30/18 06:52 Dose: 50 mcg Levothyroxine Sodium (Synthroid) 75 mcg PO SuSa@0600 [facility] Last Admin: 05/29/18 06:52 Dose: 75 mcg Loperamide HCl (Imodium) 2 mg PO Q4H PRN PRN PRN Reason: Diarrhea Magnesium Hydroxide (Milk Of Magnesia) 30 ml PO DAILY PRN PRN Reason: Constipation Clinical Impression(s) from Imaging Studies Chest X-Ray 05/26/18 08:27 IMPRESSION: Small right pleural effusion. COPD. Electronically Signed: Dulce Maria Rivas, at 9:10 EST Tel , Service support , Code Visit Inpatient E&M: 49619 Subs Hosp L2
--- NOTE | 2018-05-30 12:45 | CASEMGMT ---
DAWOOD received a call from Sandra at [facility] and she said patient's coverage is $20/day for days 1-20. He also has a $250 deductible. She said they would want 30 days up front so this would be a total of $2,130. DAWOOD told her SW will check with family and let her know. DAWOOD spoke with patient's daughter and she no longer wants this facility especially due to them wanting this money up front. DAWOOD told her SW is still waiting on [facility] to get back to . DAWOOD told her she is likely going to need to pick a few other facilities in the event [facility] does not work out. She said she will be back in to [facility] in a couple of hours. DAWOOD called [facility] and left a message for Sandra letting her know family has chosen to go with a different facility.
[2018-05-30 13:20] LABS: Bedside Glucose 387 mg/dL (70-110)
--- NOTE | 2018-05-30 15:02 | CASEMGMT ---
SW received a call from [facility] and [facility] have no beds available at this time. SW called patient's daughter and let her know this information and that SW will need new facilities. She will look at list and let SW know. Loida MCCARTHY
[2018-05-30] MEDS: Insulin NPH Human 100 UNITS/ML PEN 10 UNITS SC (16:24)
[2018-05-30 16:45] LABS: Bedside Glucose > 500 mg/dL (70-110)
[2018-05-30 17:16] LABS: Glucose 658 mg/dL (74-106)
[2018-05-30] MEDS: Insulin NPH Human 100 UNITS/ML PEN 20 UNITS SC (17:42)
[2018-05-30] MEDS: Atorvastatin Calcium 40 MG Tablet PO (22:25)
[2018-05-31] VITALS (10 sets, daily range): BP systolic 115–124; BP diastolic 53–60; PULSE 61–72; RESP 10–16; TEMP 36.4–36.7; O2SAT 94
[2018-05-31 00:15] LABS: Bedside Glucose 203 mg/dL (70-110)
[2018-05-31] MEDS: Levothyroxine 50 MCG Tablet PO (05:41)
[2018-05-31 06:40] LABS: Glucose 44 mg/dL (74-106)
[2018-05-31 07:21] LABS: Bedside Glucose 52 mg/dL (70-110)
[2018-05-31 07:21] LABS: Bedside Glucose 88 mg/dL (70-110)
[2018-05-31 07:21] LABS: Bedside Glucose 33 mg/dL (70-110)
[2018-05-31] MEDS: Amiodarone 200 MG Tablet PO (09:05)
[2018-05-31] MEDS: Aspirin 81 MG TAB.CHEW PO (09:06)
--- NOTE | 2018-05-31 09:51 | CASEMGMT ---
SW received call from patient's daughter. She gave SW a couple of new options. SW called both places and faxed referrals to both places. The facilities are [facility] in [place] and [facility]. Await return calls. Loida MCCARTHY
[2018-05-31] MEDS: Carvedilol 3.125 MG TABLET PO ×2 (10:40→21:51)
[2018-05-31] MEDS: APIXABAN 2.5 MG TABLET PO ×2 (10:40→21:52)
[2018-05-31] MEDS: Clopidogrel Bisulfate 75 MG Tablet PO (10:41)
[2018-05-31] MEDS: amLODIPine 5 MG Tablet PO (10:41)
[2018-05-31] MEDS: Furosemide 40 MG Tablet PO ×2 (10:43→18:43)
[2018-05-31 11:50] LABS: Bedside Glucose 329 mg/dL (70-110)
[2018-05-31] MEDS: Insulin Lispro 100 UNIT/ML INSULN.PEN SC ×2 (12:49→18:19)
[2018-05-31] MEDS: Insulin Lispro 100 UNIT/ML INSULN.PEN SQ (12:50)
--- NOTE | 2018-05-31 13:51 | CASEMGMT ---
DAWOOD received voice mail from Kimberlee at [facility]. They can accept patient at d/c. She asked SW to call her back to let her know if patient and family chose their facility. DAOWOD met with patient, his daughter, and . DAWOOD let them know [facility] can take them and we are still waiting on [facility] to call. Patient's daughter said she wants to wait on [facility] to call back. DAWOOD told her once a facility accepts and they pick a facility insurance pre-cert will be started. DAWOOD also warned them it is possible patient could denied as she is doing well with therapy. Loida LE MSW
--- NOTE | 2018-05-31 15:29 | CASEMGMT ---
Addendum entered by Loida Mccain 05/31/18 15:30: SW heard back from [facility] and they can accept patient. They will start pre-cert. SW let patient and her daughter know this information. Plan: [facility] pending insurance approval. Loida MCCARTHY Original Note: DAWOOD called Marcela from [facility]. She said they did get the referral and they are looking at it right now. She will get back to DAWOOD today. Loida LE MSW
--- NOTE | 2018-05-31 15:31 | CASEMGMT ---
SW did warn them again that it is a possibility that insurance could deny long-term level of care. DAWOOD explained the options then are to either private pay at the long-term or get private duty help at home. Discussed private pay pricing at facilities in this area. Loida LE MSW
[2018-05-31 15:46] LABS: Bedside Glucose 60 mg/dL (70-110)
[2018-05-31 15:46] LABS: Bedside Glucose 55 mg/dL (70-110)
[2018-05-31 15:50] LABS: Bedside Glucose 452 mg/dL (70-110)
[2018-05-31 15:51] LABS: Bedside Glucose 410 mg/dL (70-110)
[2018-05-31 16:46] LABS: Bedside Glucose 148 mg/dL (70-110)
[2018-05-31] MEDS: Insulin NPH Human 100 UNITS/ML PEN 15 UNITS SC (18:19)
[2018-05-31] MEDS: Atorvastatin Calcium 40 MG Tablet PO (21:52)
[2018-05-31 22:51] LABS: Bedside Glucose 101 mg/dL (70-110)
[2018-06-01] VITALS (9 sets, daily range): BP systolic 114–135; BP diastolic 52–63; PULSE 69–77; RESP 16–18; TEMP 36.7–37; O2SAT 95–96
[2018-06-01 02:45] LABS: Bedside Glucose 50 mg/dL (70-110)
--- NOTE | 2018-06-01 02:45 | NURSING ---
blood sugar 50, orange juice given
[2018-06-01 03:45] LABS: Bedside Glucose 97 mg/dL (70-110)
[2018-06-01] MEDS: Levothyroxine 50 MCG Tablet PO (06:12)
[2018-06-01 07:21] LABS: Bedside Glucose 239 mg/dL (70-110)
[2018-06-01 08:29] LABS: Absolute Neutrophil Count 3.5 X10^3/uL (2.0-7.7); Basophil# 0.02 X10^3/uL; Basophil% 0.3 % (0-1); Eosinophil# 0.11 X10^3/uL; Eosinophils% 1.8 % (0-5); Hematocrit 28.6 % (37-47); Hemoglobin 9.3 g/dl (12.0-15.0); Lymphocyte % 26.2 % (19-41); Mean Corp Hgb Conc 32.5 g/gl (32-36); Mean Corpuscular Hgb 30.5 pg (27.0-32.0); Mean Corpuscular Volume 93.8 fL (81-99); Mean Platelet Vol. 9.6 fl (6.2-12.0); Monocyte# 0.84 X10^3/uL; Monocyte% 13.8 % (0-10); Neutrophil # 3.51 X10^3/uL (2.7-7.7); Neutrophil % 57.6 % (47-70); Platelet Count 338 K/mm3 (150-450); RBC Distribution Width CV 16.5 % (11.6-14.6); RBC Distribution Width SD 55.2 fl (35.1-43.9); Red Blood Count 3.05 M/mm3 (4.2-5.4); White Blood Count 6.1 K/mm3 (4.4-11.0)
[2018-06-01 08:31] LABS: POSITIVE COUNT NO; POSITIVE DIFFERENTIAL NO; POSITIVE MORPHOLOGY NO
[2018-06-01 08:41] LABS: Anion Gap 7 (5-15); BUN 14 mg/dL (7-18); BUN/Creat Ratio 15.2 RATIO (10-20); Calcium,Total 7.9 mg/dL (8.5-10.1); Chloride 102 mmol/L (98-107); Creatinine, Serum 0.92 mg/dL (0.55-1.02); EST Glomerular Filtration Rate 62 mL/min (>60); Est Glom Filt Rate - Afr Amer 75 mL/min (>60); Estimated Creatinine Clearance 36.19 ml/min; Glucose 273 mg/dL (74-106); Magnesium 1.9 mg/dL (1.6-2.6); Potassium 4.3 mmol/L (3.5-5.1); Sodium Level 137 mmol/L (136-145)
[2018-06-01] MEDS: Clopidogrel Bisulfate 75 MG Tablet PO (08:59)
[2018-06-01] MEDS: Carvedilol 3.125 MG TABLET PO ×2 (08:59→20:55)
[2018-06-01] MEDS: Aspirin 81 MG TAB.CHEW PO (08:59)
[2018-06-01] MEDS: Amiodarone 200 MG Tablet PO (08:59)
[2018-06-01] MEDS: amLODIPine 5 MG Tablet PO (08:59)
[2018-06-01] MEDS: Insulin NPH Human 100 UNITS/ML PEN 15 UNITS SC (09:00)
[2018-06-01] MEDS: APIXABAN 2.5 MG TABLET PO ×2 (09:00→20:55)
[2018-06-01] MEDS: Insulin Lispro 100 UNIT/ML INSULN.PEN SQ ×3 (09:01→20:55)
[2018-06-01] MEDS: Insulin Lispro 100 UNIT/ML INSULN.PEN SC ×2 (09:01→11:44)
[2018-06-01] MEDS: Furosemide 40 MG Tablet PO ×2 (09:02→17:09)
--- NOTE | 2018-06-01 11:37 | PN_ITS ---
Subjective: Patient seen still remains frail. Insurance precertification pending prior to patient being transferred to a usp facility in [facility] Objective: GENERAL: cooperative HEENT: Atraumatic; moist oral mucosa EYES; Anicteric, Normal Conjunctiva NECK; supple, normal thyroid, no distended JVD. RESPIRATORY: Diminished to auscultation bilaterally, CARDIOVASCULAR: Regular S1 S2, no audible murmurs GI: soft, non-tender, normoactive bowel sounds, : No Renal angle tenderness; EXTREMITIES: No edema, no clubbing, no cyanosis. MUSCULOSKELETAL: No Joint Tenderness; no muscle waisting NEURO: Awake; no lateralizing signs. SKIN: No Rash PSYCH; Normal affect Vitals/I&O's: Vital Signs Temp Pulse Resp BP Pulse Ox 98.1 F 70 18 121/63 H 95 06/01/18 08:09 06/01/18 11:00 06/01/18 08:09 06/01/18 08:09 06/01/18 08:09 Oxygen Flow Rate (L/min) 2 Oxygen Delivery Method Room Air Weight: 54 kg Body Mass Index (BMI) 21.9 Finger Stick Blood Glucose 449 Intake and Output for Last 24 Hours 05/30/18 05/31/18 06/01/18 23:59 23:59 23:59 Intake Total 300 / 300 600 / 600 Output Total 0 / 0 Balance 300 / 300 600 / 600 Microbiology Past 72 Hours 05/26/18 09:35 Blood Culture (Wb) - Left Forearm Blood Culture - Final No growth in 5 days. 05/26/18 09:30 Blood Culture (Wb) - Right Forearm Blood Culture - Final No growth in 5 days. Laboratory Results 05/28/18 22:01: POC Glucose 60 L 05/28/18 22:15: POC Glucose 55 L 05/30/18 11:56: POC Glucose 452 H* 05/30/18 11:57: POC Glucose 410 H 05/31/18 11:45: POC Glucose 329 H 05/31/18 16:34: POC Glucose 148 H 05/31/18 20:36: POC Glucose 101 06/01/18 02:42: POC Glucose 50 L 06/01/18 03:41: POC Glucose 97 06/01/18 06:11: POC Glucose 239 H 06/01/18 08:00: WBC 6.1, RBC 3.05 L, Hgb 9.3 L, Hct 28.6 L, MCV 93.8, MCH 30.5, MCHC 32.5, RDW 16.5 H, RDW Differential 55.2 H, Plt Count 338, MPV 9.6, Immature Gran % (Auto) 0.300, Neut % (Auto) 57.6, Lymph % (Auto) 26.2, Hill % (Auto) 13.8 H, Eos % (Auto) 1.8, Baso % (Auto) 0.3, Absolute Neuts (auto) 3.5, Absolute Lymphs (auto) 1.60, Total Counted Not Reportable 06/01/18 08:00: Sodium 137, Potassium 4.3, Chloride 102, Carbon Dioxide 28.0, Anion Gap 7, BUN 14, Creatinine 0.92, Estim Creat Clear Calc 36.19, Est GFR (MDRD) Af Amer 75, Est GFR (MDRD) Non-Af 62, BUN/Creatinine Ratio 15.2, Glucose 273 H, Calcium 7.9 L, Magnesium 1.9 Current Medications [facility] Admin[facility] 06/01/18 08:59 Dose: 200 mg Amlodipine Besylate (Norvasc) 5 mg PO DAILY [facility] Last Admin: 06/01/18 08:59 Dose: 5 mg Apixaban (Eliquis) 2.5 mg PO BID [facility] Last Admin: 06/01/18 09:00 Dose: 2.5 mg Aspirin (Aspirin, Baby) 81 mg PO DAILY@0800 [facility] Last Admin: 06/01/18 08:59 Dose: 81 mg Atorvastatin Calcium (Lipitor) 40 mg PO QHS [facility] Last Admin: 05/31/18 21:52 Dose: 40 mg Carvedilol (Coreg) 3.125 mg PO BID [facility] Last Admin: 06/01/18 08:59 Dose: 3.1249 mg Clopidogrel Bisulfate (Plavix) 75 mg PO DAILY [facility] Last Admin: 06/01/18 08:59 Dose: 75 mg Dextrose (D50w Syringe) 0 gm IV X1 PRN; Protocol PRN Reason: Hypoglycemia Furosemide (Lasix) 40 mg PO BID@1000,1800 [facility] Last Admin: 06/01/18 09:02 Dose: 40 mg Glucagon () 1 mg IM .X1 PRN PRN Reason: Hypoglycemia Insulin Human Lispro (Humalog Kwikpen (Bkc)) 0 unit SQ ACHS [facility]; Protocol Last Admin: 06/01/18 09:01 Dose: 4 units Insulin Human Lispro (Humalog Kwikpen (Bkc)) 2 unit SC TIDAC [facility] Last Admin: 06/01/18 09:01 Dose: 2 u Insulin Human NPH (Humulin N (Bk)) 15 units SC BIDCM [facility] Last Admin: 06/01/18 09:00 Dose: 15 u Levothyroxine Sodium (Synthroid) 50 mcg PO MoTuWeThFr@0600 [facility] Last Admin: 06/01/18 06:12 Dose: 50 mcg Levothyroxine Sodium (Synthroid) 75 mcg PO SuSa@0600 [facility] Last Admin: 05/29/18 06:52 Dose: 75 mcg Loperamide HCl (Imodium) 2 mg PO Q4H PRN PRN PRN Reason: Diarrhea Magnesium Hydroxide (Milk Of Magnesia) 30 ml PO DAILY PRN PRN Reason: Constipation Sodium Chloride () 5 - 15 ml IV UD PRN PRN Reason: SALINE FLUSH Medical Necessity - Tobacco Use Smoking Status: Former smoker Assessment/Plan All Active Problems (Last Updated 05/20/18 @ 22:39 by Rah Faulkner MD) Stented coronary artery (Acute 05/23/18) Arteriosclerotic heart disease (ASHD) (Acute 05/23/18) The patient is a 82 year old F with past medical history is again for recent acute non-STEMI for which patient underwent stent placement in her mid LAD 2 weeks prior to her current admission who presented with hypothermia and diarrhea 1. Hypothermia; sepsis workup came back negative. Patient's hypothermia has since resolved however remains significantly deconditioned and is currently undergoing PT OT with plans for patient to be discharged to usp facility 2. CAD with recent on acute STEMI patient underwent stent placement to her LAD 3. Chronic diarrhea on antidiarrhea medications 4. Hypertension-blood pressure controlled, home medications continued with dose adjustment as needed 5. Chronic diastolic congestive heart failure resume patient diuretics 6. Hypothyroidism-patient is on levothyroxine home dose continued 7. Paroxysmal A. fib with RVR: on amiodarone in addition to systemic anticoagulant with Eliquis 8. Diabetes mellitus type 1 Lantus 25 units at night 9. Physical deconditioning requested for PT OT eval and social work msw with plans for patient to be transferred to a usp facility when bed is available and insurance precertification is obtained 10. Anemia secondary to anemia of chronic disorder monitoring H&H with plans to transfuse if patient becomes symptomatic or hemoglobin falls below 7 11. DVT: Eliquis Active Medications [facility] Last Admin: 05/30/18 09:14 Dose: 200 mg Amlodipine Besylate (Norvasc) 5 mg PO DAILY [facility] Last Admin: 05/30/18 09:14 Dose: 5 mg Apixaban (Eliquis) 2.5 mg PO BID [facility] Last Admin: 05/30/18 09:14 Dose: 2.5 mg Aspirin (Aspirin, Baby) 81 mg PO DAILY@0800 [facility] Last Admin: 05/30/18 09:14 Dose: 81 mg Atorvastatin Calcium (Lipitor) 40 mg PO QHS [facility] Last Admin: 05/29/18 22:09 Dose: 40 mg Carvedilol (Coreg) 3.125 mg PO BID [facility] Last Admin: 05/30/18 09:14 Dose: 3.125 mg Clopidogrel Bisulfate (Plavix) 75 mg PO DAILY [facility] Last Admin: 05/30/18 09:14 Dose: 75 mg Dextrose (D50w Syringe) 0 gm IV X1 PRN; Protocol PRN Reason: Hypoglycemia Glucagon () 1 mg IM .X1 PRN PRN Reason: Hypoglycemia Insulin Human Lispro (Humalog Kwikpen (Bkc)) 0 unit SQ [facility]; Protocol Last Admin: 05/30/18 11:59 Dose: 11 units Insulin Human NPH (Humulin N (Bkc)) [facility] Last Admin: 05/30/18 09:15 Dose: Not Given Levothyroxine Sodium (Synthroid) 50 mcg PO MoTuWeThFr@0600 [facility] Last Admin: 05/30/18 06:52 Dose: 50 mcg Levothyroxine Sodium (Synthroid) 75 mcg PO SuSa@0600 [facility] Last Admin: 05/29/18 06:52 Dose: 75 mcg Loperamide HCl (Imodium) 2 mg PO Q4H PRN PRN PRN Reason: Diarrhea Magnesium Hydroxide (Milk Of Magnesia) 30 ml PO DAILY PRN PRN Reason: Constipation Clinical Impression(s) from Imaging Studies Chest X-Ray 05/26/18 08:27 IMPRESSION: Small right pleural effusion. COPD. Electronically Signed: Kaydenashley Rivas, at 9:10 EST Tel , Service support , Code Visit Inpatient E&M: 60205 Subs Hosp L2
[2018-06-01] MEDS: 0.9% NaCl Peripheral Flush Adult/Peds IV ×2 (11:44→20:52)
[2018-06-01 11:50] LABS: Bedside Glucose 253 mg/dL (70-110)
--- NOTE | 2018-06-01 14:55 | CASEMGMT ---
DAWOOD spoke with Marcela from [facility] and she has not heard anything from insurance. SW faxed her patient's labs which show her blood sugars are hard to regulate here and patient has an even harder time at home. Hoping this will help get her approved. Loida LE [employer] SPEC
[2018-06-01 16:55] LABS: Bedside Glucose 51 mg/dL (70-110)
[2018-06-01 17:20] LABS: Bedside Glucose 54 mg/dL (70-110)
[2018-06-01 17:35] LABS: Bedside Glucose 77 mg/dL (70-110)
[2018-06-01] MEDS: Atorvastatin Calcium 40 MG Tablet PO (20:55)
[2018-06-01 21:11] LABS: Bedside Glucose 230 mg/dL (70-110)
[2018-06-02] VITALS (11 sets, daily range): BP systolic 109–132; BP diastolic 48–89; PULSE 70–78; RESP 16; TEMP 36.6–37.1; O2SAT 93–98
[2018-06-02 03:00] LABS: Bedside Glucose 223 mg/dL (70-110)
[2018-06-02] MEDS: Levothyroxine 50 MCG Tablet PO (05:21)
[2018-06-02 07:01] LABS: Bedside Glucose 388 mg/dL (70-110)
[2018-06-02 07:44] LABS: Anion Gap 7 (5-15); BUN 20 mg/dL (7-18); BUN/Creat Ratio 17.9 RATIO (10-20); Calcium,Total 8.2 mg/dL (8.5-10.1); Chloride 99 mmol/L (98-107); Creatinine, Serum 1.12 mg/dL (0.55-1.02); EST Glomerular Filtration Rate 50 mL/min (>60); Est Glom Filt Rate - Afr Amer 60 mL/min (>60); Estimated Creatinine Clearance 29.73 ml/min; Glucose 336 mg/dL (74-106); Magnesium 2.1 mg/dL (1.6-2.6); Potassium 4.5 mmol/L (3.5-5.1); Sodium Level 136 mmol/L (136-145)
[2018-06-02] MEDS: Insulin Lispro 100 UNIT/ML INSULN.PEN SC ×2 (08:29→12:33)
[2018-06-02] MEDS: Insulin Lispro 100 UNIT/ML INSULN.PEN SQ ×2 (08:29→12:33)
[2018-06-02] MEDS: Insulin NPH Human 100 UNITS/ML PEN 15 UNITS SC (08:30)
[2018-06-02] MEDS: Aspirin 81 MG TAB.CHEW PO (08:32)
[2018-06-02] MEDS: Amiodarone 200 MG Tablet PO (08:33)
[2018-06-02] MEDS: APIXABAN 2.5 MG TABLET PO ×2 (08:40→21:58)
[2018-06-02] MEDS: Furosemide 40 MG Tablet PO ×2 (08:40→16:54)
[2018-06-02] MEDS: Clopidogrel Bisulfate 75 MG Tablet PO (08:40)
[2018-06-02] MEDS: Carvedilol 3.125 MG TABLET PO ×2 (08:40→21:58)
[2018-06-02] MEDS: amLODIPine 5 MG Tablet PO (08:40)
--- NOTE | 2018-06-02 09:30 | CASEMGMT ---
This JULIO CESAR WALKER received call from Janiya at [facility] and she states that she is sending pt's SNF precert to medical review at this time. She is made aware at this time of pt's other co-morbidities and blood sugars. She states that she will call Luis Enrique SEAY back when any info obtained. She states that they do offer the physician a 24 hour period to do a peer to peer prior to denial. Luis Enrique SEAY updated on all at this time, voices understanding. Maldonado HARRELL CM
[2018-06-02 12:16] LABS: Bedside Glucose 165 mg/dL (70-110)
--- NOTE | 2018-06-02 12:33 | PCM.PROGNOTE ---
<Lucrecia Irving - Last Filed: 06/02/18 12:47> Subjective: Patient seen and examined. No acute events overnight. Denies current complaints. Daughter at bedside. - Physical Exam General: Alert, Oriented x3, Cooperative HEENT: Atraumatic, PERRLA, EOMI, Normocephalic Oral: Moist Mucosa Neck: Supple, No JVD, Negative Carotid Bruits Lungs: Clear to auscultation, Diminished Cardiovascular: Regular rate, No murmurs Abdomen: Bowel Sounds Present, Soft, Non Tender, Non-Distended Extremities: No clubbing, No cyanosis, No edema, Capillary Refill Less than 3 Seconds Skin: No rashes, No breakdown Musculoskeletal: No Tenderness to Palpation of Joints or Extremities Neurological: Cranial nerves II-XII grossly intact, Neuro grossly intact Psych/Mental Status: Normal Affect, Appropriate Vital Signs Temp Pulse Resp BP Pulse Ox 98.8 F 74 16 132/48 H 98 06/02/18 08:36 06/02/18 11:00 06/02/18 08:36 06/02/18 08:36 06/02/18 08:36 Oxygen Flow Rate (L/min) 2 Oxygen Delivery Method Room Air Weight: 119 lb 0.794 oz Body Mass Index (BMI) 21.9 Finger Stick Blood Glucose 449 Intake and Output for Last 24 Hours 05/31/18 06/01/18 06/02/18 23:59 23:59 23:59 Intake Total 600 / 600 720 / 720 460 / 460 Output Total 0 / 0 Balance 600 / 600 720 / 720 460 / 460 Microbiology Past 72 Hours 05/26/18 09:35 Blood Culture - Final Blood Culture (Wb) - Left Forearm No growth in 5 days. 05/26/18 09:30 Blood Culture - Final Blood Culture (Wb) - Right Forearm No growth in 5 days. Laboratory Tests Past 24 Hrs 06/02/18 06:15 Sodium 136 Potassium 4.5 Chloride 99 Carbon Dioxide 30.0 Anion Gap 7 BUN 20 H Creatinine 1.12 H Estim Creat Clear Calc 29.73 Est GFR (MDRD) Af Amer 60 Est GFR (MDRD) Non-Af 50 L BUN/Creatinine Ratio 17.9 Glucose 336 H Calcium 8.2 L Magnesium 2.1 POC Glucose 06/02/18 06/02/18 06/02/18 12:07 06:49 02:55 POC Glucose 165 H 388 H 223 H 06/01/18 06/01/18 06/01/18 20:46 17:30 17:06 POC Glucose 230 H 77 54 L 06/01/18 16:48 POC Glucose 51 L Medical Necessity - Tobacco Use Smoking Status: Former smoker Assessment/Plan All Active Problems (Last Updated 05/20/18 @ 22:39 by Rah Faulkner MD) Stented coronary artery (Acute 05/23/18) Arteriosclerotic heart disease (ASHD) (Acute 05/23/18) 1. Hypothermia, sepsis ruled out-hypothermia resolved, unclear etiology. Blood culture showed no growth. Urine culture showed no growth. 2. CAD, recent NSTEMI-patient had PTCA /ANNA of the mid LAD 05/23/2018. Continue aspirin, Plavix, statin, beta-yuni. Has outpatient follow-up with cardiology 06/06/2018. 3. Chronic diastolic CHF-no acute exacerbation. Continue home Lasix regimen. 4. Chronic diarrhea-as needed Imodium. 5. Hypertension-stable, continue home amlodipine, carvedilol, Lasix regimen. 6. Hypothyroidism-continue Synthroid regimen. 7. Paroxysmal atrial fibrillation with RVR-rate controlled. Continue amiodarone, carvedilol, Eliquis. 8. Type 1 diabetes mellitus-blood glucose labile. Previously had insulin pump which was not working per family. Continue scheduled NPH 15 units twice daily as well as scheduled Humalog with meals and sliding scale insulin. 9. Anemia of chronic disease-stable, trend CBC. 10. Mild intermittent asthma-follows with Dr. Gaxiola. No acute exacerbation. 11. Physical debility- PT/OT. SNF pending acceptance. DVT prophylaxis-Eliquis Discharge planning-SNF pending acceptance. This patient was seen by EDWINA Trejo under the supervision of Dr. Gutierrez. <Carlos Gutierrez - Last Filed: 06/02/18 13:33> - Physical Exam Vital Signs Temp Pulse Resp BP Pulse Ox 98.8 F 74 16 132/48 H 98 06/02/18 08:36 06/02/18 11:00 06/02/18 08:36 06/02/18 08:36 06/02/18 08:36 Oxygen Flow Rate (L/min) 2 Oxygen Delivery Method Room Air Weight: 54 kg Body Mass Index (BMI) 21.9 Finger Stick Blood Glucose 449 Intake and Output for Last 24 Hours 05/31/18 06/01/18 06/02/18 23:59 23:59 23:59 Intake Total 600 / 600 720 / 720 460 / 460 Output Total 0 / 0 Balance 600 / 600 720 / 720 460 / 460 Microbiology Past 72 Hours 05/26/18 09:35 Blood Culture - Final Blood Culture (Wb) - Left Forearm No growth in 5 days. 05/26/18 09:30 Blood Culture - Final Blood Culture (Wb) - Right Forearm No growth in 5 days. Laboratory Tests Past 24 Hrs 06/02/18 06:15 Sodium 136 Potassium 4.5 Chloride 99 Carbon Dioxide 30.0 Anion Gap 7 BUN 20 H Creatinine 1.12 H Estim Creat Clear Calc 29.73 Est GFR (MDRD) Af Amer 60 Est GFR (MDRD) Non-Af 50 L BUN/Creatinine Ratio 17.9 Glucose 336 H Calcium 8.2 L Magnesium 2.1 POC Glucose 06/02/18 06/02/18 06/02/18 12:07 06:49 02:55 POC Glucose 165 H 388 H 223 H 06/01/18 06/01/18 06/01/18 20:46 17:30 17:06 POC Glucose 230 H 77 54 L 06/01/18 16:48 POC Glucose 51 L Assessment/Plan This patient was seen in conjunction with EDWINA Trejo . I have independently interviewed and examined the patient and reviewed pertinent historical, laboratory, and other data. Please refer to EDWINA Trejo note for details of this patient's presentation, findings, and recommendations. I have reviewed EDWINA Trejo note and concur with documented findings. In brief, The patient is a 82 year old F with past medical history is again for recent acute non-STEMI for which patient underwent stent placement in her mid LAD 2 weeks prior to her current admission who presented with hypothermia and diarrhea Physical Examination: GENERAL: cooperative HEENT: Atraumatic; moist oral mucosa EYES; Anicteric, Normal Conjunctiva NECK; supple, normal thyroid, no distended JVD. RESPIRATORY: Diminished to auscultation bilaterally, CARDIOVASCULAR: Regular S1 S2, no audible murmurs GI: soft, non-tender, normoactive bowel sounds, NEURO: Awake; no lateralizing signs. SKIN: No Rash PSYCH; Normal affect Assessment: 1. Hypothermia; sepsis workup came back negative. 2. CAD with recent on acute STEMI patient underwent stent placement to her LAD 3. Chronic diarrhea on antidiarrhea medications 4. Hypertension- 5. Chronic diastolic congestive heart failure 6. Hypothyroidism-patient is on levothyroxine 7. Paroxysmal A. fib with RVR: on amiodarone in addition to systemic anticoagulation with Eliquis 8. Diabetes mellitus type 1 9. Physical deconditioning requested f 10. Anemia secondary to anemia of chronic disorder 11. DVT: Patient is on Eliquis Recommendations: 1. I have discussed the results of my overview and impressions with the patient 2. Options for management were reviewed Code Visit Inpatient E&M: 65683 Subs Hosp L2
[2018-06-02 16:16] LABS: Bedside Glucose 63 mg/dL (70-110)
[2018-06-02 17:01] LABS: Bedside Glucose 120 mg/dL (70-110)
--- NOTE | 2018-06-02 17:14 | CASEMGMT ---
Social Work Phone call received from Janiya at [facility] and pt has been denied admission to SNF. Peer to Peer can be completed. SW spoke with Lucrecia Irving CNP and informed and she is agreeable to complete peer to peer. DAWOOD met with pt dgt Hali and informed of denial. Veronica would like to proceed with peer to peer. DAWOOD did discuss with pt dgt the possibility that after peer to peer pt would not be approved and that a back up plan would need to be in place for d/c. Explored options of snf care private pay, assisted living and home with [facility] and private duty services. Explained insurance (Medicare vs. Medicaid) and what would and would not be covered. Spoke with Anisha at [facility] and the do not have a chcf care (private pay snf) but the do have Assisted Living but it would be several days before pt would be accepted if at all. Discussed with dgt possiblity of pt staying in [facility] if denied SNF. Pt dgt has not made a decision on discharge plan for pt at this time if she is denied during peer to peer. Phone call to Peer to Peer number at [facility] and spoke with Eze. Appointment set for 06/03/18 at 9:30. [facility] physician will contact Lucrecia Irving CNP. Lucrecia made aware of procedure and time and agreeable to take call. Clinical information faxed to peer to peer number for medical consideration. Pt dgt notified that Peer to Peer will take place tomorrow. DAWOOD will continue to follow for d/c planning. ANTONI Carmen
[2018-06-02] MEDS: Atorvastatin Calcium 40 MG Tablet PO (21:58)
[2018-06-03] VITALS (10 sets, daily range): BP systolic 108–134; BP diastolic 44–52; PULSE 55–74; RESP 14–16; TEMP 36.3–37; O2SAT 93–97
[2018-06-03 00:16] LABS: Bedside Glucose 279 mg/dL (70-110)
[2018-06-03 02:06] LABS: Bedside Glucose 297 mg/dL (70-110)
[2018-06-03] MEDS: Levothyroxine 50 MCG Tablet PO (05:59)
[2018-06-03 06:56] LABS: Bedside Glucose 369 mg/dL (70-110)
[2018-06-03 07:34] LABS: Anion Gap 7 (5-15); BUN 22 mg/dL (7-18); BUN/Creat Ratio 19.3 RATIO (10-20); Calcium,Total 8.4 mg/dL (8.5-10.1); Chloride 97 mmol/L (98-107); Creatinine, Serum 1.14 mg/dL (0.55-1.02); EST Glomerular Filtration Rate 49 mL/min (>60); Est Glom Filt Rate - Afr Amer 59 mL/min (>60); Estimated Creatinine Clearance 29.21 ml/min; Glucose 365 mg/dL (74-106); Potassium 4.1 mmol/L (3.5-5.1); Sodium Level 137 mmol/L (136-145)
[2018-06-03] MEDS: Aspirin 81 MG TAB.CHEW PO (08:41)
[2018-06-03] MEDS: Amiodarone 200 MG Tablet PO (08:41)
[2018-06-03] MEDS: Insulin Lispro 100 UNIT/ML INSULN.PEN SQ ×3 (08:41→15:47)
[2018-06-03] MEDS: Carvedilol 3.125 MG TABLET PO (08:44)
[2018-06-03] MEDS: APIXABAN 2.5 MG TABLET PO (08:44)
[2018-06-03] MEDS: Furosemide 40 MG Tablet PO ×2 (08:44→15:48)
[2018-06-03] MEDS: amLODIPine 5 MG Tablet PO (08:45)
[2018-06-03] MEDS: Clopidogrel Bisulfate 75 MG Tablet PO (08:45)
[2018-06-03 11:01] LABS: Bedside Glucose 298 mg/dL (70-110)
--- NOTE | 2018-06-03 11:03 | CASEMGMT ---
MARGIE Odonnell did peer to peer with insurance and patient was still denied for SNF. SW called patient's daughter and let her know. She asked when she would be discharged and SW told her today. She said her dad does not want to stay at SNF so she is going to have to figure out what to do with them. SW also notified patient. Loida LE MSW
--- NOTE | 2018-06-03 11:37 | DCINST_ITS ---
You will use the following diet at home:: Cardiac Discharge Activity: Return to Normal Activity Call your doctor if you observe: Shortness of breath, Dizziness, Fainting spells, Chest pain Allergies/Adverse Reactions: Allergies No Known Allergies Allergy (Verified 05/26/18 09:56) Medications to take at Discharge furosemide 40 mg tablet 40 mg PO DAILY 09/06/17 Levothyroxine Sodium [Synthroid] 75 mcg PO SUSA 02/13/18 Amiodarone HCl 200 mg PO DAILY 05/20/18 Levothyroxine [Synthroid] 50 mcg PO [id number] 05/20/18 Amlodipine [Norvasc] 5 mg PO DAILY 05/26/18 Apixaban [Eliquis] 2.5 mg PO BID 05/26/18 Aspirin [Aspirin, Baby] 81 mg PO DAILY@0800 05/26/18 Atorvastatin Calcium [Lipitor] 40 mg PO QHS 05/26/18 Carvedilol [Coreg] 3.125 mg PO BID 05/26/18 Clopidogrel Bisulfate [Plavix] 75 mg PO DAILY 05/26/18 Insulin Glargine [Lantus SoloStar Pen] 15 units SC BID pen 06/03/18 Insulin Lispro [Humalog KwikPen] See Protocol SQ ACHS insuln.pen 06/03/18 Primary Care Physician: Elvis Russell MD [Primary Care Provider] - Please follow up with your Primary Care Physician in: 1 Week Test Results: Test results from this visit will be discussed in further detail at your follow- up appointment, if applicable. Please Follow Up With: Ge Hong MD When: As scheduled Please Follow Up With: Ole Gaxiola DO When: As scheduled Please Follow Up With: Endocrinology When: 1-2 Weeks Proposed Discharge Date: 06/03/18
--- NOTE | 2018-06-03 12:45 | CASEMGMT ---
SW spoke with Hesham from [facility]. Patient is currently active with [facility]. SW will continue to follow, however daughter has not specified what she is going to do with patient. Loida LE MSW
--- NOTE | 2018-06-03 13:23 | PCM.DC.SUM ---
Discharge Date and Diagnosis Date of Admission: 05/26/18 Date of Discharge: 06/03/18 - Primary Discharge Diagnosis 1. Hypothermia, sepsis ruled out-hypothermia resolved, unclear etiology. 2. CAD, recent NSTEMI 3. Chronic diastolic CHF 4. Chronic diarrhea 5. Hypertension 6. Hypothyroidism 7. Paroxysmal atrial fibrillation with RVR 8. Type 1 diabetes mellitus 9. Anemia of chronic disease 10. Mild intermittent asthma 11. Physical debility - Secondary Discharge Diagnosis Chronic Problems (Last Updated 05/20/18 @ 22:39 by Rah Faulkner MD) HLD (hyperlipidemia) (Chronic) TIA (transient ischemic attack) (Chronic) Essential (primary) hypertension (Chronic) Chronic diastolic (congestive) heart failure (Chronic) Aortic stenosis (Chronic) Mild to moderate per echo 11/16/17 done @ [facility]: see report for measurements Pulmonic valve regurgitation (Chronic) Moderate per echo 11/16/17 Done @ [facility] Diabetes type 1, controlled (Chronic) dx : last exacerbation : dka : years ago hypoglycemic episode : 02/06 er visit :years ago Asthma (Chronic) Secondary pulmonary arterial hypertension (Chronic) RVSP 53mm hg per echo 11/16/2017 done @ [facility] Nonrheumatic mitral (valve) insufficiency (Chronic) Moderate to severe regurgitation per echo 11/16/2017 done @ [facility] Paroxysmal atrial fibrillation (Chronic) DVT (deep venous thrombosis) (Chronic) Right-sided heart failure (Chronic) Uncontrolled type 1 diabetes mellitus with complication, without long-term current use of insulin (Chronic) Doing fairly well. Appetite is fairly good. She reports no issues. Swelling in legs sl improved. Hospital Course and Treatment Imaging Results: Diagnostic Data Chest X-Ray 05/26/18 08:27 IMPRESSION: Small right pleural effusion. COPD. Electronically Signed: Dulce Maria Rob, at 9:10 EST Tel , Service support , Operations: None Procedures: None Summary of Care Provided: The patient is a 82 year old F admitted 05/26/2018 due to confusion and hypothermia. 1. Hypothermia, sepsis ruled out-hypothermia resolved, unclear etiology. Blood culture showed no growth. Urine culture showed no growth. 2. CAD, recent NSTEMI-patient had PTCA /ANNA of the mid LAD 05/23/2018. Continue aspirin, Plavix, statin, beta-yuni. Continue outpatient follow-up with cardiology as scheduled. 3. Chronic diastolic CHF-no acute exacerbation. Continue home Lasix regimen. 4. Chronic diarrhea-as needed Imodium. No further diarrhea during admission. 5. Hypertension-stable, continue home amlodipine, carvedilol, Lasix regimen. 6. Hypothyroidism-continue Synthroid regimen. 7. Paroxysmal atrial fibrillation with RVR-rate controlled. Continue amiodarone, carvedilol, Eliquis. 8. Type 1 diabetes mellitus-blood glucose labile. Previously had insulin pump which was not working per family and was subsequently discontinued. Patient will continue Lantus 15 units twice daily and sliding scale NovoLog at discharge. She was recently given prescription for glucose monitor and supplies by ADRIEN lorenzo. Follow-up with endocrinology in 1-2 weeks. Her current verifier operator is retiring and she was given other provider's information. 9. Anemia of chronic disease-stable. 10. Mild intermittent asthma-follows with Dr. Gaxiola. No acute exacerbation. 11. Physical debility- Patient did not qualify for SNF. General: Alert, Oriented x3, Cooperative HEENT: Atraumatic, PERRLA, EOMI, Normocephalic Oral: Moist Mucosa Neck: Supple, No JVD, Negative Carotid Bruits Lungs: Clear to auscultation, Diminished Cardiovascular: Regular rate, No murmurs Abdomen: Bowel Sounds Present, Soft, Non Tender, Non-Distended Extremities: No clubbing, No cyanosis, No edema, Capillary Refill Less than 3 Seconds Skin: No rashes, No breakdown Musculoskeletal: No Tenderness to Palpation of Joints or Extremities Neurological: Cranial nerves II-XII grossly intact, Neuro grossly intact Psych/Mental Status: Normal Affect, Appropriate Patient seen and examined prior to discharge. Physical assessment as noted above. Patient is stable for discharge with follow up recommendations as noted above. This patient was seen by EDWINA Trejo under the supervision of Dr. Cross. - Physical Exam Vital Signs Temp Pulse Resp BP Pulse Ox 97.4 F L 72 16 134/52 H 97 06/03/18 11:23 06/03/18 11:23 06/03/18 11:23 06/03/18 11:23 06/03/18 11:23 Oxygen Flow Rate (L/min) 2 Oxygen Delivery Method Room Air Weight: 119 lb 0.794 oz Body Mass Index (BMI) 21.9 Finger Stick Blood Glucose 449 Intake and Output for Last 24 Hours 06/01/18 06/02/18 06/03/18 23:59 23:59 23:59 Intake Total 720 / 720 1300 / 1300 240 / 240 Balance 720 / 720 1300 / 1300 240 / 240 Microbiology Past 72 Hours 05/26/18 09:35 Blood Culture - Final Blood Culture (Wb) - Left Forearm No growth in 5 days. 05/26/18 09:30 Blood Culture - Final Blood Culture (Wb) - Right Forearm No growth in 5 days. Laboratory Tests Past 24 Hrs 06/03/18 06:25 Sodium 137 Potassium 4.1 Chloride 97 L Carbon Dioxide 33.0 H Anion Gap 7 BUN 22 H Creatinine 1.14 H Estim Creat Clear Calc 29.21 Est GFR (MDRD) Af Amer 59 L Est GFR (MDRD) Non-Af 49 L BUN/Creatinine Ratio 19.3 Glucose 365 H Calcium 8.4 L POC Glucose 06/03/18 06/03/18 06/03/18 10:57 06:53 01:56 POC Glucose 298 H 369 H 297 H 06/02/18 06/02/18 06/02/18 21:57 16:49 15:59 POC Glucose 279 H 120 H 63 L Discharge Diet: Low fat/ Low Cholesterol Discharge Activity: Return to Normal Activity Call your doctor if you observe: Shortness of breath, Dizziness, Fainting spells, Chest pain Home Medications: Medications to take at Discharge furosemide 40 mg tablet 40 mg PO DAILY 09/06/17 Levothyroxine Sodium [Synthroid] 75 mcg PO SUSA 02/13/18 Amiodarone HCl 200 mg PO DAILY 05/20/18 Levothyroxine [Synthroid] 50 mcg PO MOTUWETHFR 05/20/18 Amlodipine [Norvasc] 5 mg PO DAILY 05/26/18 Apixaban [Eliquis] 2.5 mg PO BID 05/26/18 Aspirin [Aspirin, Baby] 81 mg PO DAILY@0800 05/26/18 Atorvastatin Calcium [Lipitor] 40 mg PO QHS 05/26/18 Carvedilol [Coreg] 3.125 mg PO BID 05/26/18 Clopidogrel Bisulfate [Plavix] 75 mg PO DAILY 05/26/18 Insulin Glargine [Lantus SoloStar Pen] 15 units SC BID pen 06/03/18 Insulin Lispro [Humalog KwikPen] See Protocol SQ ACHS insuln.pen 06/03/18 Primary Care Physician: Elvis Russell MD [Primary Care Provider] - Please follow up with your Primary Care Physician in: 1 Week Please Follow Up With: Ge Hong MD When: As scheduled Please Follow Up With: Ole Gaxiola DO When: As scheduled Please Follow Up With: Endocrinology When: 1-2 Weeks Disposition: Home Minutes spent on discharge:: 35 Patient Condition:: Stable Medical Necessity - Tobacco Use Smoking Status: Former smoker Meaningful Use Info Meaningful Use Diagnoses (Choose all that apply): None applicable
--- NOTE | 2018-06-03 13:28 | DS.PCM_ITS ---
Discharge Date and Diagnosis Date of Admission: 05/26/18 Date of Discharge: 06/03/18 - Primary Discharge Diagnosis 1. Hypothermia, sepsis ruled out-hypothermia resolved, unclear etiology. 2. CAD, recent NSTEMI 3. Chronic diastolic CHF 4. Chronic diarrhea 5. Hypertension 6. Hypothyroidism 7. Paroxysmal atrial fibrillation with RVR 8. Type 1 diabetes mellitus 9. Anemia of chronic disease 10. Mild intermittent asthma 11. Physical debility - Secondary Discharge Diagnosis Chronic Problems (Last Updated 05/20/18 @ 22:39 by Rah Faulkner MD) HLD (hyperlipidemia) (Chronic) TIA (transient ischemic attack) (Chronic) Essential (primary) hypertension (Chronic) Chronic diastolic (congestive) heart failure (Chronic) Aortic stenosis (Chronic) Mild to moderate per echo 11/16/17 done @ [facility]: see report for measurements Pulmonic valve regurgitation (Chronic) Moderate per echo 11/16/17 Done @ [facility] Diabetes type 1, controlled (Chronic) dx : last exacerbation : dka : years ago hypoglycemic episode : 02/06 er visit :years ago Asthma (Chronic) Secondary pulmonary arterial hypertension (Chronic) RVSP 53mm hg per echo 11/16/2017 done @ [facility] Nonrheumatic mitral (valve) insufficiency (Chronic) Moderate to severe regurgitation per echo 11/16/2017 done @ [facility] Paroxysmal atrial fibrillation (Chronic) DVT (deep venous thrombosis) (Chronic) Right-sided heart failure (Chronic) Uncontrolled type 1 diabetes mellitus with complication, without long-term current use of insulin (Chronic) Doing fairly well. Appetite is fairly good. She reports no issues. Swelling in legs sl improved. Hospital Course and Treatment Imaging Results: Diagnostic Data Chest X-Ray 05/26/18 08:27 IMPRESSION: Small right pleural effusion. COPD. Electronically Signed: Dulce Maria Rob, at 9:10 EST Tel , Service support , Operations: None Procedures: None Summary of Care Provided: The patient is a 82 year old F admitted 05/26/2018 due to confusion and hypothermia. 1. Hypothermia, sepsis ruled out-hypothermia resolved, unclear etiology. Blood culture showed no growth. Urine culture showed no growth. 2. CAD, recent NSTEMI-patient had PTCA /ANNA of the mid LAD 05/23/2018. Continue aspirin, Plavix, statin, beta-yuni. Continue outpatient follow-up with cardiology as scheduled. 3. Chronic diastolic CHF-no acute exacerbation. Continue home Lasix regimen. 4. Chronic diarrhea-as needed Imodium. No further diarrhea during admission. 5. Hypertension-stable, continue home amlodipine, carvedilol, Lasix regimen. 6. Hypothyroidism-continue Synthroid regimen. 7. Paroxysmal atrial fibrillation with RVR-rate controlled. Continue amiodarone, carvedilol, Eliquis. 8. Type 1 diabetes mellitus-blood glucose labile. Previously had insulin pump which was not working per family and was subsequently discontinued. Patient will continue Lantus 15 units twice daily and sliding scale NovoLog at discharge. She was recently given prescription for glucose monitor and supplies by ADRIEN lorenoz. Follow-up with endocrinology in 1-2 weeks. Her current dye house wheel operator is retiring and she was given other provider's information. 9. Anemia of chronic disease-stable. 10. Mild intermittent asthma-follows with Dr. Gaxiola. No acute exacerbation. 11. Physical debility- Patient did not qualify for SNF. General: Alert, Oriented x3, Cooperative HEENT: Atraumatic, PERRLA, EOMI, Normocephalic Oral: Moist Mucosa Neck: Supple, No JVD, Negative Carotid Bruits Lungs: Clear to auscultation, Diminished Cardiovascular: Regular rate, No murmurs Abdomen: Bowel Sounds Present, Soft, Non Tender, Non-Distended Extremities: No clubbing, No cyanosis, No edema, Capillary Refill Less than 3 Seconds Skin: No rashes, No breakdown Musculoskeletal: No Tenderness to Palpation of Joints or Extremities Neurological: Cranial nerves II-XII grossly intact, Neuro grossly intact Psych/Mental Status: Normal Affect, Appropriate Patient seen and examined prior to discharge. Physical assessment as noted above. Patient is stable for discharge with follow up recommendations as noted above. This patient was seen by EDWINA Trejo under the supervision of Dr. Cross. - Physical Exam Vital Signs Temp Pulse Resp BP Pulse Ox 97.4 F L 72 16 134/52 H 97 06/03/18 11:23 06/03/18 11:23 06/03/18 11:23 06/03/18 11:23 06/03/18 11:23 Oxygen Flow Rate (L/min) 2 Oxygen Delivery Method Room Air Weight: 119 lb 0.794 oz Body Mass Index (BMI) 21.9 Finger Stick Blood Glucose 449 Intake and Output for Last 24 Hours 06/01/18 06/02/18 06/03/18 23:59 23:59 23:59 Intake Total 720 / 720 1300 / 1300 240 / 240 Balance 720 / 720 1300 / 1300 240 / 240 Microbiology Past 72 Hours 05/26/18 09:35 Blood Culture - Final Blood Culture (Wb) - Left Forearm No growth in 5 days. 05/26/18 09:30 Blood Culture - Final Blood Culture (Wb) - Right Forearm No growth in 5 days. Laboratory Tests Past 24 Hrs 06/03/18 06:25 Sodium 137 Potassium 4.1 Chloride 97 L Carbon Dioxide 33.0 H Anion Gap 7 BUN 22 H Creatinine 1.14 H Estim Creat Clear Calc 29.21 Est GFR (MDRD) Af Amer 59 L Est GFR (MDRD) Non-Af 49 L BUN/Creatinine Ratio 19.3 Glucose 365 H Calcium 8.4 L POC Glucose 06/03/18 06/03/18 06/03/18 10:57 06:53 01:56 POC Glucose 298 H 369 H 297 H 06/02/18 06/02/18 06/02/18 21:57 16:49 15:59 POC Glucose 279 H 120 H 63 L Discharge Diet: Low fat/ Low Cholesterol Discharge Activity: Return to Normal Activity Call your doctor if you observe: Shortness of breath, Dizziness, Fainting spells, Chest pain Home Medications: Medications to take at Discharge furosemide 40 mg tablet 40 mg PO DAILY 09/06/17 Levothyroxine Sodium [Synthroid] 75 mcg PO SUSA 02/13/18 Amiodarone HCl 200 mg PO DAILY 05/20/18 Levothyroxine [Synthroid] 50 mcg PO MOTUWETHFR 05/20/18 Amlodipine [Norvasc] 5 mg PO DAILY 05/26/18 Apixaban [Eliquis] 2.5 mg PO BID 05/26/18 Aspirin [Aspirin, Baby] 81 mg PO DAILY@0800 05/26/18 Atorvastatin Calcium [Lipitor] 40 mg PO QHS 05/26/18 Carvedilol [Coreg] 3.125 mg PO BID 05/26/18 Clopidogrel Bisulfate [Plavix] 75 mg PO DAILY 05/26/18 Insulin Glargine [Lantus SoloStar Pen] 15 units SC BID pen 06/03/18 Insulin Lispro [Humalog KwikPen] See Protocol SQ ACHS insuln.pen 06/03/18 Primary Care Physician: Elvis Russell MD [Primary Care Provider] - Please follow up with your Primary Care Physician in: 1 Week Please Follow Up With: Ge Hong MD When: As scheduled Please Follow Up With: Ole Gaxiola DO When: As scheduled Please Follow Up With: Endocrinology When: 1-2 Weeks Disposition: Home Minutes spent on discharge:: 35 Patient Condition:: Stable Medical Necessity - Tobacco Use Smoking Status: Former smoker Meaningful Use Info Meaningful Use Diagnoses (Choose all that apply): None applicable
--- NOTE | 2018-06-03 14:03 | CASEMGMT ---
DAWOOD spoke with patient's daughter to see if she would like home health set up. She said she is going to take patient home with her and maybe do some outpatient therapy. She said they may need home health in the future. DAWOOD told her to contact their PCP as he/she can order home health. She thanked SW. She said she would be in around 4 or 5 to leaf size picker patient. DAWOOD had Belle HAIR BOILER OPERATOR-C sign order for outpatient therapy. DAWOOD put order in nurses box withe patient's d/c instructions. DAWOOD notified RN of daughter's leaf size picker time. Plan: [facility] after peer to peer. Patient's daughter is taking her home with outpatient therapy in [place]. Loida LE MSW
[2018-06-03] MEDS: Loperamide 2 MG Capsule PO (15:16)
[2018-06-03 15:55] LABS: Bedside Glucose 225 mg/dL (70-110)
--- NOTE | 2018-06-07 11:59 | CASEMGMT ---
JULIO CESAR WALKER Discharge Follow-Up Phone Call. Lace: 17 Strata: 4 Discharge Date: 06/03/18 Adm Dx: Hyponatremia Call to pt's daughter, Tina, d/t pt was discharged home with plans to go to stay @ [facility] in [place]. Asked her how her mom has been doing since being discharged from the hospital. Tina states her mother has been doing okay and that she is getting stronger, stating they even went up some stairs today and she is getting in and out of the shower. Tina states she is starting Out-pt rehab today as well in [place]. Tina states she does not have any questions about the discharge instructions or medications. She stated her mother was sitting right beside her and she asked her as well and stated her mother does not have any questions either. Reviewed follow-up appts with Tina and she is aware of the the ones that are scheduled and that one needs scheduled with PCP and with an leather grader. Tina states she does not know of any endocrinologists in the [place] area. JULIO CESAR WALKER advised Tina to contact [facility] to inquire about who is in Network. She voiced understanding. Tina states there is an X written across the appt with Dr Hong. JULIO CESAR WALKER advised Tina to contact Dr Hong's office to inquire if that appt is still scheduled or if she needs to reschedule it. Tina states has no other questions at this time. Instructed her to contact her PCP's office with any further questions or if she needs, she can contact CM @ [facility]. JULIO CESAR WALKER thanked her for choosing [facility]. Javi GRACE RN, CM
== END 2018-06-03 16:25 | disposition home or self-care (01) | DRG 922 ==
LOC: ED 08:29 → PCU 13:42
PROVIDERS: Internal Medicine; Admitting Provider Family Medicine; Emergency Provider Emergency Medicine; Family Provider Family Medicine; PCP Family Medicine; Visit Provider Internal Medicine
DX: T68.XXXA Hypothermia, initial encounter (principal); I21.4 Non-ST elevation (NSTEMI) myocardial infarction; I50.32 Chronic diastolic (congestive) heart failure; K52.9 Noninfective gastroenteritis and colitis, unspecified; J45.20 Mild intermittent asthma, uncomplicated; E03.9 Hypothyroidism, unspecified; E10.9 Type 1 diabetes mellitus without complications; I48.0 Paroxysmal atrial fibrillation; I11.0 Hypertensive heart disease with heart failure; I25.10 Atherosclerotic heart disease of native coronary artery without angina pectoris; D63.8 Anemia in other chronic diseases classified elsewhere; Z79.4 Long term (current) use of insulin; Z95.5 Presence of coronary angioplasty implant and graft; Z79.01 Long term (current) use of anticoagulants; R53.81 Other malaise; I27.21 Secondary pulmonary arterial hypertension
CPT/HCPCS: 36415; 51702; 71045; 80048; 80053; 81001; 82009; 82947; 82962; 83605; 83735; 84439; 84443; 84484; 85025; 85610; 85730; 87040; 87086; 93005; 97110; 97116; 97162; 97165; 97530; 97535; 97802; 99285; J7030; A4216